=== PATIENT | female | born 1990 | race Caucasian/White ===

== ENCOUNTER 2022-02-07 09:43 | Emergency (ER) | payer BC, SELFPAY ==
[2022-02-07 09:43] VITALS: BP 113/77; PULSE 80; RESP 16; TEMP 36.9; O2SAT 98; BMI 42.5
--- NOTE | 2022-02-07 09:58 | HMH.EDUTC ---
[facility] [place] Disposition Clinical Impression: Strep throat Disposition: Home, Self-Care Condition on Discharge: Good Instructions: Strep Throat, DI for Strep Throat Additional Instructions: Drink plenty of fluids. Take tylenol or ibuprofen for pain or fever. Take the medications as directed. Follow up with your regular doctor. GO TO THE ER FOR ANY WORSENING SYMPTOMS Throw your tooth brush away and get a new one. Prescriptions: Brompheniramine/Pseudoephed/Dm [Bromfed Dm Cough Syrup] 5 ml PO Q6HP PRN #240 ml PRN Reason: Cough Transmission Status: Received by [id number] Amoxicillin [Amoxicillin 875MG Tab] 875 mg PO Q12H #20 tab Transmission Status: Received by [facility] methylPREDNISolone [Medrol] 4 mg PO DIRECTED 6 Days #21 packet Transmission Status: Received by [facility] Referrals: Yogi Abdul [Primary Care Provider] - Time of Disposition: 10:22 Medical Decision Making - Medical Records Medical records reviewed: No: I reviewed the patient's medical records. - Jefe Inquiry Pt receiving controlled substance: No Vital Signs: 02/07/22 09:43 02/07/22 10:26 Temperature 98.4 F 98.4 F Temperature Source Oral Oral Pulse Rate 80 Pulse Rate [Right] 80 Respiratory Rate 16 16 Blood Pressure 113/77 Blood Pressure [Right Arm] 113/77 Blood Pressure Mean [Right Arm] 89 Blood Pressure Source Automatic Cuff Blood Pressure Source [Right Arm] Automatic Cuff Blood Pressure Position Sitting Blood Pressure Position [Right Arm] Sitting 02 Sat by Pulse Oximetry 98 Oxygen Delivery Method Room Air Room Air - Lab Data Lab results reviewed: Yes: I reviewed the patient's lab results. Lab Results 02/07/22 09:59: Strep Scn Rapid Clinic Positive A [facility] [place] HPI - General Stated complaint: sore throat Time Seen by Provider: 02/07/22 09:58 - History of Present Illness Provider Complaint: She c/o sore throat for the past 2 days. - Related Data Previous Rx's Medication Instructions Recorded Amoxicillin [Amoxicillin 875MG 875 mg PO Q12H #20 tab 02/07/22 Tab] Brompheniramine/Pseudoephed/Dm 5 ml PO Q6HP PRN #240 ml 02/07/22 [Bromfed Dm Cough Syrup] methylPREDNISolone [Medrol] 4 mg PO DIRECTED 6 Days #21 02/07/22 packet Allergies Allergy/AdvReac Type Severity Reaction Status Date / Time ciprofloxacin [From Cipro] Allergy Verified 02/07/22 10:07 Sulfa (Sulfonamide Allergy Verified 02/07/22 10:07 Antibiotics) [facility] History - Hepatitis A Screen Attestation statement:: This patient has been screened for Hepatitis A risk factors. I have reviewed the patient's past medical history: Yes ROS Obtained: Yes All systems reviewed & no additional complaints - Constitutional Constitutional: Reports as per HPI, Reports chills, Reports fever(s), Reports frequent falls, Reports poor appetite - Eyes Eyes: Denies eye discharge - ENT Ears, Nose, Mouth, and Throat: Reports as per HPI - Cardiovascular Cardiovascular: Denies chest pain - Respiratory Respiratory: Denies chest congestion, Reports cough Physical Exam - General General appearance: alert, in no apparent distress - Head Head exam: atraumatic, normocephalic, normal inspection - Eye Eye exam: Present: normal appearance, PERRL, EOMI - ENT ENT exam: Present: mucous membranes moist, normal external ear exam - Expanded ENT Exam TM/Canal exam: Bilateral TM: erythema, bulging Nose exam: Absent: sinus tenderness Nasal speculum exam: Bilateral: normal Throat exam: Present: tonsillar erythema, tonsillomegaly, tonsillar exudate - Neck Neck exam: Present: normal inspection, full ROM, trachea midline. Absent: meningismus, lymphadenopathy - Chest Chest inspection: Present: normal inspection, symmetric chest wall rise. Absent: tenderness - Respiratory Respiratory exam: Present: normal lung sounds bilaterally. Absent: respiratory distress - Cardiovascular
[2022-02-07 10:05] LABS: UTC Strep Screen (Rapid) Positive (Negative)
[2022-02-07 10:26] VITALS: BP 113/77; PULSE 80; RESP 16; TEMP 36.9; O2SAT 98
== END 2022-02-07 10:27 | disposition home or self-care (01) ==
PROVIDERS: Emergency Provider Nurse Practitioner Family; PCP Family Medicine
DX: J02.0 Streptococcal pharyngitis (principal)
CPT/HCPCS: 87880; 99212; G0463

== ENCOUNTER 2022-04-25 16:02 | Emergency (ER) | payer BC, SELFPAY ==
[2022-04-25 16:25] VITALS: BP 125/76; PULSE 86; RESP 18; TEMP 36.7; O2SAT 98; BMI 46.5
--- NOTE | 2022-04-25 16:39 | EXP.UTC ---
Discharge Plan Disposition Patient Disposition: Home, Self-Care Condition: Good Prescriptions Prescriptions: New phenazopyridine [Pyridium] 200 mg tablet 200 mg PO Q8H 2 Days Qty: 6 0RF cefdinir 300 mg capsule 300 mg PO BID Qty: 20 0RF No Action amoxicillin 875 MG tablet 875 mg PO Q12H Qty: 20 0RF methylprednisolone 4 MG tablets,dose pack 4 mg PO DIRECTED 6 Days Qty: 21 0RF eeydtzystckehso-suofdncyp-RA 118 ML syrup 5 ml PO Q6HP PRN (Reason: Cough) Qty: 240 0RF Referrals Follow up/Referrals: Yogi Abdul [Primary Care Provider] - See instructions Activity Restrictions/Add. Instructions Additional Instructions/Restrictions: *Increase fluids. Water not Soda or Tea *Start antibiotic immediately and be sure to take as ordered for the FULL length of time although you should start to see improvement over the next 48 hours *Pyridium as needed Remember this medication will turn your urine . This is normal but it will stain what ever it gets on *You should not use Pyridium for more than 48 hours. If so , follow up with your primary physician to review urine culture and ensure that antibiotic is adequate for infection *Be SURE to follow up anytime for new or worsening symptoms with your family doctor. AND in 48 hours for urine culture results with your family doctor, if you do not have a doctor then you may call back to the [facility] for urine culture results and further treatment. We do recommend that you choose and establish care with a Primary Care Physician. ?AND follow up with them ?in 10-14 days to repeat UA to ensure infection is resolved and blood no longer present *Be sure to let your PCP know that we sent urine cultures from the [facility] so they can follow up to ensure that you area the on the correct antibiotic Call your doctor office and make appointment for 48 hours (2 days from today) ?to follow up and get the results of your urine culture and further treatment Clinical Impressions Clinical Impression: Urinary tract infection Instructions Patient Instructions: Urinary Tract Infection, Cefdinir Discharge ED Provider: Tamiko Lovelace [facility] [place] HPI General Stated complaint: possible UTI Mode of Arrival: Ambulatory Source of Information: Patient Limitations: No Limitations Time Seen by Provider: 04/25/22 16:52 Description of Symptoms (Recalled from Triage Doc. by RN): PATIENT C/O BLOOD IN URINE, FREQUENT URINATION, NAUSEA, LOWER ABDOMINAL PAIN, AND PRESSURE IN BLADDER X 2 DAYS HEENT Symptoms (Recalled from RN notes): No Resp Symptoms (Recalled from RN notes): No Skin Symptoms (Recalled from RN notes): No MS Symptoms (Recalled from RN notes): No Functional Status (Recalled from RN notes): WNL History of Present Illness Provider Complaint: Patient states that she feels like she has a UTI States that she is having symptoms like she has had in the past with UTI States that she is having pain and burning with urination, reports pressure like pain in lower abdomen and bladder area along with frequency and urgency States that she has also been having achy like pain in her lower back for the last couple of days and her urine looked dark like it may have had blood in Denies fever denies chills States that she did have a little nausea earlier but not right now Related Data Previous Rx's Medication Instructions Recorded amoxicillin 875 mg tablet 875 mg PO Q12H #20 tabs 02/07/22 vdahlxroxexvdhd-kfnrzluthjnbcku-PC 5 ml PO Q6HP PRN Cough #240 mL 02/07/22 2 mg-30 mg-10 mg/5 mL oral syrup methylprednisolone 4 mg tablets in 4 mg PO DIRECTED 6 days #21 02/07/22 a dose pack packets cefdinir 300 mg capsule 300 mg PO BID #20 caps 04/25/22 phenazopyridine 200 mg tablet 200 mg PO Q8H pain 2 days #6 tabs 04/25/22 (Pyridium) Allergies Allergy/AdvReac Type Severity Reaction Status Date / Time ciprofloxacin [From Cipro] Allergy Verified 02/07/22 10:07 Sulfa (Sulfonamide Allergy Verified 02/07/22 10:07 Antibiotics)
[2022-04-25 16:52] LABS: Apearance,Urine Cloudy (Clear); Bilirubin,Urine Negative (Negative); Blood, Urine 2+ (Negative); Color,Urine Dark Yellow (Yellow); Glucose,Urine (UA) Negative (Negative); Ketones,Urine Negative (Negative); PH,Urine 5.5 (5.0-8.5); Protein,Urine Trace (Negative); UTC Leukocyte Esterase,Urine Trace (Negative); UTC Nitrate,Urine Positive (Negative); Urobilinogen,Urine 0.2 EU/dl (0.2)
[2022-04-25 17:04] VITALS: BP 125/76; PULSE 86; RESP 18; TEMP 36.7; O2SAT 98
== END 2022-04-25 17:07 | disposition home or self-care (01) ==
PROVIDERS: Emergency Provider Nurse Practitioner; PCP Family Medicine
DX: N39.0 Urinary tract infection, site not specified (principal)
CPT/HCPCS: 81003; 87086; 87088; 87186; 99212; G0463

== ENCOUNTER 2022-06-23 17:59 | Emergency (ER) | payer BC, SELFPAY ==
[2022-06-23 19:30] VITALS: BP 130/72; PULSE 78; RESP 22; TEMP 36.7; O2SAT 98; BMI 43.7
[2022-06-23 19:47] LABS: UTC Strep Screen (Rapid) Negative (Negative)
--- NOTE | 2022-06-23 19:51 | EXP.UTC ---
Discharge Plan Disposition Patient Disposition: Home, Self-Care Condition: Good Prescriptions Prescriptions: New amoxicillin 875 mg tablet 875 mg PO BID Qty: 20 0RF pseudoephedrine HCl [Sudafed 12 Hour] 120 mg tablet extended release 120 mg PO Q12H PRN (Reason: nasal congestion) Qty: 10 0RF Referrals Follow up/Referrals: Yogi Abdul [Primary Care Provider] - See instructions Activity Restrictions/Add. Instructions Additional Instructions/Restrictions: *Monitor Temp, Over the counter Motrin or Tylenol as directed/as needed Tylenol every 4 hours and Motrin every 6 hours (as long as your family doctor has told you that you can take it) for fever or pain. and straight to ER if unable to lower temp less than 101.0 after medication given *Warm salt water gargles may help to soothe the throat *Throat Lozenges? *Warm fluids like tea with honey may help to soothe the throat? *Sleep elevated *Humidifier/Vaporizer Take medication as prescribed Your throat swab was sent for culture. Those results are typically sent to your primary care. Be sure to follow up in 2-3 days with your family doctor/primary care physician if no improvement so they can review those result and treat if necessary. If you don?t have a primary care doctor, I recommend you get one but in the mean time, you will have to return to a walk in clinic Follow up IMMEDIATELY for new or worsening symptoms or no Noticeable improvement over the next 48-72 hours. 911 for difficulty breathing or swallowing Clinical Impressions Clinical Impression: Otitis media Instructions Patient Instructions: Middle Ear Infection, Pseudoephedrine, Amoxicillin Discharge ED Provider: Tamiko Lovelace [facility] [place] HPI General Stated complaint: sore throat, ears Mode of Arrival: Ambulatory Source of Information: Patient Limitations: No Limitations Time Seen by Provider: 06/23/22 19:51 Description of Symptoms (Recalled from Triage Doc. by RN): PATIENT C/O SORE THROAT AND EAR PAIN X 2 DAYS HEENT Symptoms (Recalled from RN notes): Yes Resp Symptoms (Recalled from RN notes): No Skin Symptoms (Recalled from RN notes): No MS Symptoms (Recalled from RN notes): No Functional Status (Recalled from RN notes): WNL History of Present Illness Provider Complaint: Patient state that she has been having sore throat and pain in both ears for 2 days that has got worse States that he sinuses feels stopped up and pressure in her ears States that today she wasnt feeling any better so she came in Related Data Previous Rx's Medication Instructions Recorded amoxicillin 875 mg tablet 875 mg PO BID #20 tabs 06/23/22 pseudoephedrine HCl 120 mg 120 mg PO Q12H PRN nasal 06/23/22 tablet,extended release (Sudafed congestion #10 tabs 12 Hour) Allergies Allergy/AdvReac Type Severity Reaction Status Date / Time ciprofloxacin [From Cipro] Allergy Verified 02/07/22 10:07 Sulfa (Sulfonamide Allergy Verified 02/07/22 10:07 Antibiotics) Worker's Comp Is this a Worker's Comp case?: No [facility] Disclaimer: The information contained in this section may have been updated after the patient was seen, as this information can be updated by other users. Medical History (Updated 06/23/22 @ 20:02 by Tamiko Lovelace APRN) Anxiety Depression Diabetes mellitus, type 2 Thyroid disease Urinary tract infection Social History (Updated 06/23/22 @ 19:39 by Kristie Ace RN) Smoking Status: Current every day smoker alcohol intake: never current occupational status: employed Travel in the last 8 weeks: None ROS Obtained: Yes All systems reviewed & no additional complaints except as documented and Yes Systems reviewed as appropriate & no additional complaints except as documented Constitutional Constitutional: Reports system reviewed and no additional complaints, except as documented, Reports as per HPI and Reports headache(s) ENT Ears, Nose, Mouth, and Throat: Rep
[2022-06-23 20:04] VITALS: BP 130/72; PULSE 78; RESP 22; TEMP 36.7; O2SAT 98
== END 2022-06-23 20:11 | disposition home or self-care (01) ==
PROVIDERS: Emergency Provider Nurse Practitioner; PCP Family Medicine
DX: H66.90 Otitis media, unspecified, unspecified ear (principal)
CPT/HCPCS: 87880; 99212; G0463

== ENCOUNTER 2022-08-26 08:24 | Emergency (ER) | payer BC, SELFPAY ==
[2022-08-26 08:30] VITALS: BP 122/83; RESP 20; TEMP 36.7; O2SAT 96; BMI 43.2
--- NOTE | 2022-08-26 08:35 | EXP.UTC ---
Discharge Plan Disposition Patient Disposition: Home, Self-Care Condition: Good Prescriptions Prescriptions: New azithromycin [Zithromax] 250 mg tablet 250 mg PO UD DOSE PK Qty: 6 0RF Rx Instructions: Take two (2) tablets today, then one (1) tablet days #2 thru #5 methylprednisolone 4 mg Tablets,Dose Pack 4 mg PO DIRECTED Qty: 21 0RF drvcdoghwyratwr-czrdczxrp-WS [Bromfed DM] 2-30-10 mg/5 mL Syrup 5 ml PO Q6H PRN (Reason: Cough) Qty: 240 0RF No Action bupropion HCl 150 mg tablet sustained-release 12 hr 150 mg PO DAILY Label Comments: TAKE 1 TABLET BY MOUTH TWICE DAILY trazodone 50 mg tablet 50 mg PO DAILY Label Comments: TAKE 1/2 TO 1 (ONE-HALF TO ONE) TABLET BY MOUTH AT BEDTIME NEEDED FOR SLEEP oxybutynin chloride 10 mg tablet extended release 24hr 10 mg PO DAILY gabapentin 100 mg capsule 100 mg PO DAILY Label Comments: TAKE 1 CAPSULE BY MOUTH THREE TIMES DAILY insulin lispro [Humalog U-100 Insulin] 100 unit/mL solution See Rx Instructions .ROUTE .COMPLEX Label Comments: INJECT UP TO 105 UNITS DAILY VIA INSULIN PUMP Rx Instructions: Inject up to 105 units daily via insulin pump buspirone 15 mg tablet 15 mg PO DAILY Label Comments: TAKE 1 TABLET BY MOUTH TWICE DAILY escitalopram oxalate 20 mg tablet 20 mg PO DAILY Label Comments: TAKE 1 TABLET BY MOUTH ONCE DAILY Vraylar 1.5 mg capsule 1.5 mg PO DAILY Label Comments: TAKE 1 CAPSULE BY MOUTH ONCE DAILY Ozempic 1 mg/dose (4 mg/3 mL) pen injector 1 mg SQ WEEKLY Label Comments: INJECT 1 MG UNDER THE SKIN INTO THE APPROPRIATE AREA ONCE A WEEK DIRECTED Referrals Follow up/Referrals: Yogi Abdul [Primary Care Provider] - See instructions Activity Restrictions/Add. Instructions Additional Instructions/Restrictions: Drink plenty of fluids. Take tylenol or ibuprofen for pain or fever. Take the medications as directed. Follow up with your regular doctor. GO TO THE ER FOR ANY WORSENING SYMPTOMS Clinical Impressions Clinical Impression: Bronchitis, Pharyngitis, Acute viral syndrome Stand Alone Forms Stand Alone Forms: Work/School Release Instructions Patient Instructions: Acute Bronchitis, DI for Acute Bronchitis Discharge ED Provider: Kwesi Hussein [facility] HPI General Stated complaint: Sore throat cough headache Time Seen by Provider: 08/26/22 08:34 History of Present Illness Provider Complaint: She states that for the past 2 days she has had sore throat, chills, low grade fever, and a cough. Related Data Home Medications Medication Instructions Recorded Confirmed bupropion HCl 150 mg tablet,12 hr 150 mg PO DAILY . 08/26/22 08/26/22 sustained-release buspirone 15 mg tablet 15 mg PO DAILY . 08/26/22 08/26/22 cariprazine 1.5 mg capsule 1.5 mg PO DAILY . 08/26/22 08/26/22 (Vraylar) escitalopram oxalate 20 mg tablet 20 mg PO DAILY . 08/26/22 08/26/22 gabapentin 100 mg capsule 100 mg PO DAILY . 08/26/22 08/26/22 insulin lispro 100 unit/mL See Rx Instructions .Route 08/26/22 08/26/22 subcutaneous solution (Humalog .COMPLEX . U-100 Insulin) oxybutynin chloride 10 mg 10 mg PO DAILY . 08/26/22 08/26/22 tablet,extended release 24 hr semaglutide 1 mg/dose (4 mg/3 mL) 1 mg SQ WEEKLY . 08/26/22 08/26/22 subcutaneous pen injector (Ozempic) trazodone 50 mg tablet 50 mg PO DAILY sleep 08/26/22 08/26/22 Previous Rx's Medication Instructions Recorded azithromycin 250 mg tablet 250 mg PO UD DOSE PK #6 tabs 08/26/22 (Zithromax) ezcplxfcnywehzp-nxezmssrbwmpuqo-SG 5 ml PO Q6H PRN Cough #240 mL 08/26/22 2 mg-30 mg-10 mg/5 mL oral syrup (Bromfed DM) methylprednisolone 4 mg tablets in 4 mg PO DIRECTED #21 tabs 08/26/22 a dose pack Allergies Allergy/AdvReac Type Severity Reaction Status Date / Time ciprofloxacin [From Cipro] Allergy Verified 08/26/22 08:44 Sulfa (Sulfonamide
[2022-08-26 08:45] LABS: UTC Strep Screen (Rapid) Negative (Negative)
[2022-08-26 09:30] VITALS: BP 122/83; PULSE 94; RESP 20; TEMP 36.7; O2SAT 96
== END 2022-08-26 09:30 | disposition home or self-care (01) ==
PROVIDERS: Emergency Provider Nurse Practitioner Family; PCP Family Medicine
DX: J40 Bronchitis, not specified as acute or chronic (principal); J02.9 Acute pharyngitis, unspecified; B34.9 Viral infection, unspecified
CPT/HCPCS: 87880; 99212; 99213; C9803; G0463; U0003; U0005

== ENCOUNTER 2023-01-24 15:40 | Emergency (ER) | payer BC, SELFPAY ==
[2023-01-24 16:05] VITALS: BP 128/77; PULSE 88; RESP 20; TEMP 36.9; O2SAT 98; BMI 43.8
[2023-01-24 16:18] LABS: Apearance,Urine Clear (Clear); Bilirubin,Urine Negative (Negative); Blood, Urine Negative (Negative); Color,Urine Yellow (Yellow); Glucose,Urine (UA) Negative (Negative); Ketones,Urine Negative (Negative); Protein,Urine Negative (Negative); UTC Leukocyte Esterase,Urine Negative (Negative); UTC Nitrate,Urine Negative (Negative); Urobilinogen,Urine 0.2 EU/dl (0.2)
--- NOTE | 2023-01-24 16:23 | EXP.UTC ---
Discharge Plan Disposition Patient Disposition: Home, Self-Care Condition: Good Prescriptions Prescriptions: New methocarbamol 500 mg tablet 500 mg PO TID PRN (Reason: muscle spasm) Qty: 15 0RF No Action bupropion HCl 150 mg tablet sustained-release 12 hr 150 mg PO DAILY Patient Comments: TAKE 1 TABLET BY MOUTH TWICE DAILY trazodone 50 mg tablet 50 mg PO DAILY Patient Comments: TAKE 1/2 TO 1 (ONE-HALF TO ONE) TABLET BY MOUTH AT BEDTIME NEEDED FOR SLEEP oxybutynin chloride 10 mg tablet extended release 24hr 10 mg PO DAILY gabapentin 100 mg capsule 100 mg PO DAILY Patient Comments: TAKE 1 CAPSULE BY MOUTH THREE TIMES DAILY insulin lispro [Humalog U-100 Insulin] 100 unit/mL solution See Rx Instructions .ROUTE .COMPLEX Patient Comments: INJECT UP TO 105 UNITS DAILY VIA INSULIN PUMP Rx Instructions: Inject up to 105 units daily via insulin pump buspirone 15 mg tablet 15 mg PO DAILY Patient Comments: TAKE 1 TABLET BY MOUTH TWICE DAILY escitalopram oxalate 20 mg tablet 20 mg PO DAILY Patient Comments: TAKE 1 TABLET BY MOUTH ONCE DAILY Vraylar 1.5 mg capsule 1.5 mg PO DAILY Patient Comments: TAKE 1 CAPSULE BY MOUTH ONCE DAILY Ozempic 1 mg/dose (4 mg/3 mL) pen injector 1 mg SQ WEEKLY Patient Comments: INJECT 1 MG UNDER THE SKIN INTO THE APPROPRIATE AREA ONCE A WEEK DIRECTED azithromycin [Zithromax] 250 mg tablet 250 mg PO UD DOSE PK Qty: 6 0RF Rx Instructions: Take two (2) tablets today, then one (1) tablet days #2 thru #5 methylprednisolone 4 mg Tablets,Dose Pack 4 mg PO DIRECTED Qty: 21 0RF txdagznmaqeregn-oopanbzoj-TP [Bromfed DM] 2-30-10 mg/5 mL Syrup 5 ml PO Q6H PRN (Reason: Cough) Qty: 240 0RF Referrals Follow up/Referrals: Yogi Abdul [Primary Care Provider] - See instructions Activity Restrictions/Add. Instructions Additional Instructions/Restrictions: Take medication as prescribed Make sure to follow up with Your Family Doctor if no improvement or any worsening of symptoms Straight to ER if pain in lower abdomen worsens Return if needed Clinical Impressions Clinical Impression: Low back pain Qualifiers: Chronicity: unspecified Back pain laterality: midline Sciatica presence: without sciatica Qualified Code(s): M54.50 - Low back pain, unspecified Instructions Patient Instructions: Low Back Pain, DI for Low Back Pain Discharge ED Provider: Tamiko Lovelace [facility] General Stated complaint: possible uti Mode of Arrival: Ambulatory Source of Information: Patient Limitations: No Limitations Time Seen by Provider: 01/24/23 16:23 Description of Symptoms (Recalled from Triage Doc. by RN): PATIENT C/O URINARY FREQUENCY, LOWER BACK PAIN THAT RADIATES AROUND TO PELVIC AREA X 1-2 WEEKS HEENT Symptoms (Recalled from RN notes): No Resp Symptoms (Recalled from RN notes): No Skin Symptoms (Recalled from RN notes): No MS Symptoms (Recalled from RN notes): No Functional Status (Recalled from RN notes): WNL History of Present Illness Provider Complaint: Patient states that she has been having pain on and off in her lower back that is worse at times with movement that radiates around her side and at time in to pelvic area States that it has been going on now for about 2 weeks so today she was worried that she may have a UTI so she came in to get it checked Related Data Home Medications Medication Instructions Recorded Confirmed bupropion HCl 150 mg tablet,12 hr 150 mg PO DAILY . 08/26/22 08/26/22 sustained-release buspirone 15 mg tablet 15 mg PO DAILY . 08/26/22 08/26/22 cariprazine 1.5 mg capsule 1.5 mg PO DAILY . 08/26/22 08/26/22 (Vraylar) escitalopram oxalate 20 mg tablet 20 mg PO DAILY . 08/26/22 08/26/22 gabapentin 100 mg capsule 100 mg PO DAILY . 08/26/22 08/26/22 insulin lispro 100 unit/mL See Rx Instructions .Route 08/26/22 08/26/22 subcutaneous so
[2023-01-24 16:33] LABS: UTC Pregnancy Test, Urine Negative (Negative)
[2023-01-24 16:36] VITALS: BP 128/77; PULSE 88; RESP 20; TEMP 36.9; O2SAT 98
== END 2023-01-24 16:45 | disposition home or self-care (01) ==
PROVIDERS: Emergency Provider Nurse Practitioner; PCP Family Medicine
DX: M54.50 Low back pain, unspecified (principal); F17.210 Nicotine dependence, cigarettes, uncomplicated; E11.9 Type 2 diabetes mellitus without complications; E03.9 Hypothyroidism, unspecified; F41.9 Anxiety disorder, unspecified; F32.A Depression, unspecified; Z79.4 Long term (current) use of insulin
CPT/HCPCS: 81003; 81025; 99212; 99214; G0463

== ENCOUNTER 2023-07-10 09:51 | Emergency (ER) | payer BC, SELFPAY ==
[2023-07-10 10:25] VITALS: BP 126/74; PULSE 63; RESP 18; TEMP 36.5; O2SAT 98; BMI 40.7
--- NOTE | 2023-07-10 10:38 | EXP.UTC ---
Discharge Plan Disposition Patient Disposition: Home, Self-Care Condition: Good Prescriptions Prescriptions: New permethrin 5 % cream 1 applic topical Q14D Qty: 60 0RF Rx Instructions: apply second treatment 14 days after first treatment if live lice remain triamcinolone acetonide 0.1 % cream 1 applic topical BID PRN (Reason: itching) Qty: 30 0RF No Action methocarbamol 500 mg tablet 500 mg PO TID PRN (Reason: muscle spasm) Qty: 15 0RF bupropion HCl 150 mg tablet sustained-release 12 hr 150 mg PO DAILY Patient Comments: TAKE 1 TABLET BY MOUTH TWICE DAILY trazodone 50 mg tablet 50 mg PO DAILY Patient Comments: TAKE 1/2 TO 1 (ONE-HALF TO ONE) TABLET BY MOUTH AT BEDTIME NEEDED FOR SLEEP oxybutynin chloride 10 mg tablet extended release 24hr 10 mg PO DAILY gabapentin 100 mg capsule 100 mg PO DAILY Patient Comments: TAKE 1 CAPSULE BY MOUTH THREE TIMES DAILY insulin lispro [Humalog U-100 Insulin] 100 unit/mL solution See Rx Instructions .ROUTE .COMPLEX Patient Comments: INJECT UP TO 105 UNITS DAILY VIA INSULIN PUMP Rx Instructions: Inject up to 105 units daily via insulin pump buspirone 15 mg tablet 15 mg PO DAILY Patient Comments: TAKE 1 TABLET BY MOUTH TWICE DAILY escitalopram oxalate 20 mg tablet 20 mg PO DAILY Patient Comments: TAKE 1 TABLET BY MOUTH ONCE DAILY Vraylar 1.5 mg capsule 1.5 mg PO DAILY Patient Comments: TAKE 1 CAPSULE BY MOUTH ONCE DAILY Ozempic 1 mg/dose (4 mg/3 mL) pen injector 1 mg SQ WEEKLY Patient Comments: INJECT 1 MG UNDER THE SKIN INTO THE APPROPRIATE AREA ONCE A WEEK DIRECTED azithromycin [Zithromax] 250 mg tablet 250 mg PO UD DOSE PK Qty: 6 0RF Rx Instructions: Take two (2) tablets today, then one (1) tablet days #2 thru #5 methylprednisolone 4 mg Tablets,Dose Pack 4 mg PO DIRECTED Qty: 21 0RF rqxgjrimlbhbvgo-opocxtlht-XY [Bromfed DM] 2-30-10 mg/5 mL Syrup 5 ml PO Q6H PRN (Reason: Cough) Qty: 240 0RF Referrals Follow up/Referrals: Yogi Abdul [Primary Care Provider] - See instructions Activity Restrictions/Add. Instructions Additional Instructions/Restrictions: Use the medication as directed. Don't put the topical steroids (triamcinolone) on your face or your groin. I prescribed it so you could use it on the itchy spot on your breast. Follow up with your regular doctor. 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 There has been an outbreak of scabies in her classroom. Over the past 3 days she has developed itching of her arms, legs, and an itchy rash on her left breast. Related Data Home Medications Medication Instructions Recorded Confirmed bupropion HCl 150 mg tablet,12 hr 150 mg PO DAILY . 08/26/22 08/26/22 sustained-release buspirone 15 mg tablet 15 mg PO DAILY . 08/26/22 08/26/22 cariprazine 1.5 mg capsule 1.5 mg PO DAILY . 08/26/22 08/26/22 (Vraylar) escitalopram oxalate 20 mg tablet 20 mg PO DAILY . 08/26/22 08/26/22 gabapentin 100 mg capsule 100 mg PO DAILY . 08/26/22 08/26/22 insulin lispro 100 unit/mL See Rx Instructions .Route 08/26/22 08/26/22 subcutaneous solution (Humalog .COMPLEX . U-100 Insulin) oxybutynin chloride 10 mg 10 mg PO DAILY . 08/26/22 08/26/22 tablet,extended release 24 hr semaglutide 1 mg/dose (4 mg/3 mL) 1 mg SQ WEEKLY . 08/26/22 08/26/22 subcutaneous pen injector (Ozempic) trazodone 50 mg tablet 50 mg PO DAILY sleep
[2023-07-10 10:47] VITALS: BP 126/74; PULSE 63; RESP 18; TEMP 36.5; O2SAT 98
== END 2023-07-10 11:10 | disposition home or self-care (01) ==
PROVIDERS: Emergency Provider Nurse Practitioner Family; PCP Family Medicine
DX: L29.9 Pruritus, unspecified (principal); B86 Scabies; F17.210 Nicotine dependence, cigarettes, uncomplicated; E11.9 Type 2 diabetes mellitus without complications; Z79.4 Long term (current) use of insulin; Z79.85 Long-term (current) use of injectable non-insulin antidiabetic drugs
CPT/HCPCS: 99212; 99214; G0463

== ENCOUNTER 2023-09-04 12:00 | Emergency (ER) | payer BC, SELFPAY ==
[2023-09-04 12:02] VITALS: BP 130/70; PULSE 112; RESP 18; TEMP 37.2; O2SAT 96; BMI 40.5
--- NOTE | 2023-09-04 13:24 | EXP.UTC ---
Discharge Plan Disposition Patient Disposition: Home, Self-Care Condition: Good Prescriptions Prescriptions: New azithromycin [Zithromax] 250 mg tablet 250 mg PO UD DOSE PK Qty: 6 0RF Rx Instructions: Take two (2) tablets today, then one (1) tablet days #2 thru #5 methylprednisolone 4 mg Tablets,Dose Pack 4 mg PO DIRECTED 6 Days Qty: 21 0RF Rx Instructions: Take 1 pack as directed for 6 days mrolxlejzajmcyw-fygacjcnx-RX [Bromfed DM] 2-30-10 mg/5 mL Syrup 5 ml PO Q6H PRN (Reason: Cough) Qty: 240 0RF No Action methocarbamol 500 mg tablet 500 mg PO TID PRN (Reason: muscle spasm) Qty: 15 0RF bupropion HCl 150 mg tablet sustained-release 12 hr 150 mg PO DAILY Patient Comments: TAKE 1 TABLET BY MOUTH TWICE DAILY trazodone 50 mg tablet 50 mg PO DAILY Patient Comments: TAKE 1/2 TO 1 (ONE-HALF TO ONE) TABLET BY MOUTH AT BEDTIME NEEDED FOR SLEEP oxybutynin chloride 10 mg tablet extended release 24hr 10 mg PO DAILY gabapentin 100 mg capsule 100 mg PO DAILY Patient Comments: TAKE 1 CAPSULE BY MOUTH THREE TIMES DAILY insulin lispro [Humalog U-100 Insulin] 100 unit/mL solution See Rx Instructions .ROUTE .COMPLEX Patient Comments: INJECT UP TO 105 UNITS DAILY VIA INSULIN PUMP Rx Instructions: Inject up to 105 units daily via insulin pump buspirone 15 mg tablet 15 mg PO DAILY Patient Comments: TAKE 1 TABLET BY MOUTH TWICE DAILY escitalopram oxalate 20 mg tablet 20 mg PO DAILY Patient Comments: TAKE 1 TABLET BY MOUTH ONCE DAILY Vraylar 1.5 mg capsule 1.5 mg PO DAILY Patient Comments: TAKE 1 CAPSULE BY MOUTH ONCE DAILY Ozempic 1 mg/dose (4 mg/3 mL) pen injector 1 mg SQ WEEKLY Patient Comments: INJECT 1 MG UNDER THE SKIN INTO THE APPROPRIATE AREA ONCE A WEEK DIRECTED triamcinolone acetonide 0.1 % cream 1 applic topical BID PRN (Reason: itching) Qty: 30 0RF Referrals Follow up/Referrals: Yogi Abdul [Primary Care Provider] - See instructions Activity Restrictions/Add. Instructions Additional Instructions/Restrictions: Drink plenty of fluids. Take tylenol or ibuprofen for pain or fever. Take the medications as directed. Follow up with your regular doctor. GO TO THE ER FOR ANY WORSENING SYMPTOMS Clinical Impressions Clinical Impression: COVID-19 Stand Alone Forms Stand Alone Forms: Work/School Release Instructions Patient Instructions: DI for Viral Syndrome [place] Kwesi [place] [facility] [place] General Stated complaint: congestion cough [facility] Time Seen by Provider: 09/04/23 13:24 History of Present Illness Provider Complaint: She states that for the past 2 days she has had fever, chills, body aches, malaise, fever, and a dry cough. Related Data Home Medications Medication Instructions Recorded Confirmed bupropion HCl 150 mg tablet,12 hr 150 mg PO DAILY . 08/26/22 08/26/22 sustained-release buspirone 15 mg tablet 15 mg PO DAILY . 08/26/22 08/26/22 cariprazine 1.5 mg capsule 1.5 mg PO DAILY . 08/26/22 08/26/22 (Vraylar) escitalopram oxalate 20 mg tablet 20 mg PO DAILY . 08/26/22 08/26/22 gabapentin 100 mg capsule 100 mg PO DAILY . 08/26/22 08/26/22 insulin lispro 100 unit/mL See Rx Instructions .Route 08/26/22 08/26/22 subcutaneous solution (Humalog .COMPLEX . U-100 Insulin) oxybutynin chloride 10 mg 10 mg PO DAILY . 08/26/22 08/26/22 tablet,extended release 24 hr semaglutide 1 mg/dose (4 mg/3 mL) 1 mg SQ WEEKLY . 08/26/22 08/26/22 subcutaneous pen injector (Ozempic) trazodone 50 mg tablet 50 mg PO DAILY sleep 08/26/22 08/26/22 Previous Rx's Medication Instructions Recorded methocarbamol 500 mg tablet 500 mg PO TID PRN muscle spasm #15 01/24/23 tabs triamcinolone acetonide 0.1 % 1 applic topical BID PRN itching 07/10/23 topical cream #30 grams azithromycin 250 mg tablet 250 mg PO UD DOSE PK #6 tabs 09/04/23 (Zithromax) zedoafyqdjarmqb-sdypprorpyxctty-LR 5 ml PO Q6H PRN Cough #240 mL 09/04/23 2 mg-30 mg-10 mg/5 mL oral syrup (Bromfed DM) methylprednisolone 4 mg tablets in 4 mg PO DIRECTED 6 days #21 tabs 09/04/23 a dose pack Allergies Allergy/AdvReac Type Severity Reaction Status Date / Time ciprofloxacin [From Cipro] Allergy Verified 09/04/23 13:31 Sulfa (Sulfonamide Allergy Verified 09/04/23 13:31 Antibiotics) [facility] Disclaimer: The information contained in this section may have been updated after the patient was seen, as this information can be updated by other users. Medical History Anxiety Depression Diabetes mellitus, type 2 Thyroid disease Urinary tract infection Social History Smoking Status: Current every day smoker alcohol intake: never current occupational status: employed Travel in the last 8 weeks: None ROS Obtained: Yes All systems reviewed & no additional complaints except as documented Constitutional Constitutional: Reports chills and Reports fever(s) Eyes Eyes: Denies eye discharge ENT Ears, Nose, Mouth, and Throat: Reports as per HPI Cardiovascular Cardiovascular: Denies chest pain Respiratory Respiratory: Denies chest congestion and Reports cough Gastrointestinal Gastrointestingal: Reports nausea; Denies abdominal pain, constipation, cramping, diarrhea or vomiting Musculoskeletal Musculoskeletal: Denies arthralgias Integumentary/Breasts Skin/Breast: Denies rash Neurologic Neurologic: Denies paresthesias Physical Exam General General appearance: alert and in no apparent distress Eye Eye exam: Present normal appearance, PERRL and EOMI ENT ENT exam: Present mucous membranes moist and normal external ear exam Expanded ENT Exam External ear exam: Present normal external inspection TM/Canal exam: Bilateral TM: erythema and bulging Nose exam: Absent sinus tenderness Nasal speculum exam: Bilateral: normal Mouth exam: Present normal external inspection; Absent drooling Teeth exam: Present normal inspection Throat exam: Present tonsillar erythema and tonsillomegaly Neck Neck exam: Present normal inspection, full ROM and trachea midline; Absent tenderness, lymphadenopathy or thyromegaly Chest Chest inspection: Present normal inspection and symmetric chest wall rise; Absent tenderness or rash Respiratory Respiratory exam: Present normal lung sounds bilaterally; Absent respiratory distress, wheezes, stridor or accessory muscle use Cardiovascular Cardiovascular exam: Present regular rate, normal rhythm and normal heart sounds Abdominal Exam Abdominal exam: Present soft; Absent distention, tenderness, guarding, rebound or rigidity Extremities Exam Extremities exam: Present normal inspection, full ROM and normal capillary refill; Absent tenderness or calf tenderness Back Exam Back exam: Present normal inspection and full ROM; Absent tenderness Neurological Exam Neurological exam: Present alert and oriented X3 Psychiatric Psychiatric exam: Present normal affect and normal mood Skin Skin exam: Present warm, dry, intact and normal color Lymphatic Lymphatic Findings: no adenopathy Medical Decision Making Medical Records Medical records reviewed: No I reviewed the patient's medical records. Jefe Inquiry Pt receiving controlled substance: No Lab Data Lab results reviewed: Yes I reviewed the patient's lab results.
[2023-09-04 13:50] LABS: UTC Strep Screen (Rapid) Negative (Negative)
[2023-09-04 13:51] LABS: UTC Influenza A Antigen Negative (Negative); UTC Influenza B Antigen Negative (Negative)
[2023-09-04 13:55] VITALS: BP 130/70; PULSE 112; RESP 18; TEMP 37.2; O2SAT 96
[2023-09-04 13:58] LABS: Influenza A, PCR Not Detected (NotDetected); Influenza B, PCR Not Detected (NotDetected)
[2023-09-04 15:51] LABS: Coronavirus 19, PCR Detected (NotDetected)
== END 2023-09-04 13:55 | disposition home or self-care (01) ==
PROVIDERS: Emergency Provider Nurse Practitioner Family; PCP Family Medicine
DX: U07.1 COVID-19 (principal); R50.9 Fever, unspecified; R05.9 Cough, unspecified; R53.81 Other malaise; F17.210 Nicotine dependence, cigarettes, uncomplicated; E11.9 Type 2 diabetes mellitus without complications; E03.9 Hypothyroidism, unspecified; Z79.4 Long term (current) use of insulin; Z79.85 Long-term (current) use of injectable non-insulin antidiabetic drugs
CPT/HCPCS: 87636; 87804; 87880; 99212; 99214; G0463

== ENCOUNTER 2023-11-30 16:24 | Emergency (ER) | payer BC, SELFPAY ==
[2023-11-30 16:35] VITALS: BP 109/74; PULSE 88; RESP 18; TEMP 36.8; O2SAT 98; BMI 38.0
--- NOTE | 2023-11-30 16:44 | EXP.UTC ---
Discharge Plan Disposition Patient Disposition: Home, Self-Care Condition: Good Prescriptions Prescriptions: New amoxicillin 500 mg capsule 500 mg PO BID 10 Days Qty: 20 0RF No Action methocarbamol 500 mg tablet 500 mg PO TID PRN (Reason: muscle spasm) Qty: 15 0RF bupropion HCl 150 mg tablet sustained-release 12 hr 150 mg PO DAILY Patient Comments: TAKE 1 TABLET BY MOUTH TWICE DAILY trazodone 50 mg tablet 50 mg PO DAILY Patient Comments: TAKE 1/2 TO 1 (ONE-HALF TO ONE) TABLET BY MOUTH AT BEDTIME NEEDED FOR SLEEP oxybutynin chloride 10 mg tablet extended release 24hr 10 mg PO DAILY gabapentin 100 mg capsule 100 mg PO DAILY Patient Comments: TAKE 1 CAPSULE BY MOUTH THREE TIMES DAILY insulin lispro [Humalog U-100 Insulin] 100 unit/mL solution See Rx Instructions .ROUTE .COMPLEX Patient Comments: INJECT UP TO 105 UNITS DAILY VIA INSULIN PUMP Rx Instructions: Inject up to 105 units daily via insulin pump buspirone 15 mg tablet 15 mg PO DAILY Patient Comments: TAKE 1 TABLET BY MOUTH TWICE DAILY escitalopram oxalate 20 mg tablet 20 mg PO DAILY Patient Comments: TAKE 1 TABLET BY MOUTH ONCE DAILY Vraylar 1.5 mg capsule 1.5 mg PO DAILY Patient Comments: TAKE 1 CAPSULE BY MOUTH ONCE DAILY Ozempic 1 mg/dose (4 mg/3 mL) pen injector 1 mg SQ WEEKLY Patient Comments: INJECT 1 MG UNDER THE SKIN INTO THE APPROPRIATE AREA ONCE A WEEK DIRECTED triamcinolone acetonide 0.1 % cream 1 applic topical BID PRN (Reason: itching) Qty: 30 0RF Referrals Follow up/Referrals: Yogi Abdul [Primary Care Provider] - See instructions Activity Restrictions/Add. Instructions Additional Instructions/Restrictions: *Monitor Temp, Over the counter Motrin or Tylenol as directed/as needed Tylenol every 4 hours and Motrin every 6 hours (as long as your family doctor has told you that you can take it) for fever or pain. and straight to ER if unable to lower temp less than 101.0 after medication given *Warm salt water gargles may help to soothe the throat *Throat Lozenges? *Warm fluids like tea with honey may help to soothe the throat? *Sleep elevated *Humidifier/Vaporizer *Your throat swab was sent for culture. Those results are typically sent to your primary care. Be sure to follow up in 2-3 days with your family doctor/primary care physician if no improvement so they can review those result and treat if necessary. If you don?t have a primary care doctor, I recommend you get one but in the mean time, you will have to return to a walk in clinic Follow up IMMEDIATELY for new or worsening symptoms or no Noticeable improvement over the next 48-72 hours. 911 for difficulty breathing or swallowing Clinical Impressions Clinical Impression: Pharyngitis Instructions Patient Instructions: Sore Throat Discharge ED [place]vel[place] [facility] [place] General Stated complaint: Sore throat Mode of Arrival: Ambulatory Source of Information: Patient Limitations: No Limitations Time Seen by Provider: 11/30/23 16:44 Description of Symptoms (Recalled from Triage Doc. by RN): Pt's symptoms are sore throat, M[place], and bilateral ear pain. 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 08/26/22 11/30/23 sustained-release buspirone 15 mg tablet 15 mg PO DAILY . 08/26/22 11/30/23 cariprazine 1.5 mg capsule 1.5 mg PO DAILY . 08/26/22 11/30/23 (Vraylar) escitalopram oxalate 20 mg tablet 20 mg PO DAILY . 08/26/22 11/30/23 gabapentin 100 mg capsule 100 mg PO DAILY . 08/26/22 11/30/23 insulin lispro 100 unit/mL See Rx Instructions .Route 08/26/22 11/30/23 subcutaneous solution (Humalog .COMPLEX . U-100 Insulin) oxybutynin chloride 10 mg 10 mg PO DAILY . 08/26/22 11/30/23 tablet,extended release 24 hr semaglutide 1 mg/dose (4 mg/3 mL) 1 mg SQ WEEKLY . 08/26/22 11/30/23 subcutaneous pen injector (Ozempic) trazodone 50 mg tablet 50 mg PO DAILY sleep 08/26/22 11/30/23 Previous Rx's Medication Instructions Recorded methocarbamol 500 mg tablet 500 mg PO TID PRN muscle spasm #15 01/24/23 tabs triamcinolone acetonide 0.1 % 1 applic topical BID PRN itching 07/10/23 topical cream #30 grams amoxicillin 500 mg capsule 500 mg PO BID 10 days #20 caps 11/30/23 Allergies Allergy/AdvReac Type Severity Reaction Status Date / Time ciprofloxacin [From Cipro] Allergy Verified 11/30/23 16:42 Sulfa (Sulfonamide Allergy Verified 11/30/23 16:42 Antibiotics) Worker's Comp Is this a Worker's Comp case?: No [facility] Dis[facility]: The information contained in this section may have been updated after the patient was seen, as this information can be updated by other users. Medical History Anxiety Depression Diabetes mellitus, type 2 Thyroid disease Urinary tract infection Social History Smoking Status: Current every day smoker alcohol intake: never current occupational status: employed Travel in the last 8 weeks: None ROS Obtained: Yes All systems reviewed & no additional complaints except as documented and Yes Systems reviewed as appropriate & no additional complaints except as documented Constitutional Constitutional: Reports system reviewed and no additional complaints, except as documented, Reports as per HPI and Reports headache(s) ENT Ears, Nose, Mouth, and Throat: Reports system reviewed and no additional complaints, except as documented, Reports as per HPI, Reports otalgia, Reports headache(s) and Reports sore throat Cardiovascular Cardiovascular: Reports system reviewed and no additional complaints, except as documented and Reports as per HPI Respiratory Respiratory: Reports system reviewed and no additional complaints, except as documented and Reports as per HPI Gastrointestinal Gastrointestingal: Reports system reviewed and no additional complaints, except as documented and as per HPI Neurologic Neurologic: Reports headache(s) Physical Exam General General appearance: alert and in no apparent distress ENT ENT exam: Present mucous membranes moist Expanded ENT Exam TM/Canal exam: Bilateral TM: bulging Nose exam: Absent sinus tenderness Throat exam: Present tonsillar erythema Respiratory Respiratory exam: Present normal lung sounds bilaterally; Absent respiratory distress or wheezes Cardiovascular Cardiovascular exam: Present regular rate, normal rhythm and normal heart sounds Neurological Exam Neurological exam: Present alert, oriented X3 and normal gait Medical Decision Making Jefe Inquiry Pt receiving controlled substance: No Jefe was queried for this patient: No Vital Signs: 11/30/23 16:35 Temperature 98.3 F Temperature Source Oral Pulse Rate [Right Radial] 88 Respiratory Rate 18 Blood Pressure [Right Arm] 109/74 L Blood Pressure Mean [Right Arm] 85 Blood Pressure Source [Right Arm] Automatic Cuff Blood Pressure Position [Right Arm] Sitting 02 Sat by Pulse Oximetry 98 Oxygen Delivery Method Room Air Lab Data Lab results reviewed: Yes I reviewed the patient's lab results.
[2023-11-30 16:56] LABS: UTC Strep Screen (Rapid) Negative (Negative)
[2023-11-30 16:58] VITALS: BP 109/74; PULSE 88; RESP 18; TEMP 36.8; O2SAT 98
== END 2023-11-30 17:00 | disposition home or self-care (01) ==
PROVIDERS: Emergency Provider Nurse Practitioner; PCP Family Medicine
DX: J02.9 Acute pharyngitis, unspecified (principal); H92.03 Otalgia, bilateral; R51.9 Headache, unspecified
CPT/HCPCS: 87880; 99212; 99214; G0463

== ENCOUNTER 2024-06-26 16:00 | Emergency (ER) | payer BC, SELFPAY ==
--- OUTSIDE RECORDS SUMMARY | 2024-06-26 16:04 | XMS_ITS | Encounter Summary ---
Author Organization [facility] Address [address] [place] [address] Care Team Providers Care Orthopedic Brace Maker Name Role Phone Yogi Abdul MD Primary Care Provider [phone] Reason for Referral * Physical Therapy (Routine) - Closed Specialty Diagnoses / Procedures Referred By Contac t Referred To Contact Physical Therapy Diagnoses Migraine without aura and without status migrainosus, not intractable Neck pain Procedures MN OFFICE/OUTPATIENT NEW MODERATE MDM 45-59 MINUTES Ania Allison APRN [address] [place] [address] Phone: tel: fax: [address] [phone] Phone: tel: fax: Referral ID Status Reason Start Date Expiration Date V isits Requested Visits Authorized [id number] Closed Specialty Services Required 07/15/2023 07/14/2024 1 1 * Diagnostic Imaging (Routine) - Closed Specialty Diagnoses / Procedures Referred By Contac t Referred To Contact Radiology Diagnoses Neck pain Procedures XR Spine Cervical 2 or 3 View Ania Allison APRN [address] [employer] [place] [phone] Phone: tel: fax: Referral ID Status Reason Start Date Expiration Date Visits Re quested Visits Authorized [id number] Closed 07/15/2023 07/14/2024 1 1 Reason for Visit * Reason Comments Peripheral Neuropathy Migraine Encounter Details Date Type Department Care Team (Martine st Contact Info) Description 07/15/2023 2:00 PM EST Office Visit [facility] [address] [phone] Ania Allison APRN [address] [place] [id number] Diabetic peripheral neuropathy associated with type 2 diabetes mellitus (Primary Dx); Migraine without aura and without status migrainosus, not intractable; Neck pain Social History Tobacco Use Types Packs/Day Years Used Date Smoking Tobacco: Every Day Cigarettes Smokeless Tobacco: Never Alcohol Use Standard Drinks/Week Comments No 0 (1 standard drink = 0.6 oz pur e alcohol) PHQ-2 Answer Date Recorded PHQ-2 Score 1 05/15/2019 Abuse Screen Answer Date Recorded Unsafe at Home or Work/School Not on file Feels Threatened by Someone? Not on file 03/2023 Does Anyone Keep You from Co ntacting Others or Doint Things Outside the Home? Not on file 05/02/2023 Physical Sign of Abuse Present Not on file 1 Housing Stability Answer Date Recorded Current Living Arrangements Not on file 03/2023 Potentially Unsafe Housing Conditions Not on kamini e 05/02/2023 Family and Community Support Answer Lucas e Recorded Help with Day-to-Day Activities Not on file 05/02/2023 Lonely or Isolated Not on file 05/02/2023 Employment Answer Date Recorded Do you want help finding or keeping work or a dora b? Not on file 05/02/2023 Disabilities Answer Date Recorded Concentrating, Remembering, or Making Decisions Difficulty Not on file 05/02/2023 Doing Errands Independently Difficulty Not on fi le 05/02/2023 Education Answer Date Recorded Help with school or training? Not on file Preferred Language Not on file 05/02/2023 Comments No Sex and Gender Information Value Date Recorded Sex Assigned at Not on file Legal Sex Female 12:43 PM EDT Gender Identity Not on file Sexual Orientation Not on file documented as of this encounter Last Filed Vital Signs Vital Sign Reading Time Taken Comments Blood Pressure 112/80 07/15/2023 1:46 PM EST Pulse 93 07/15/2023 1:46 PM EST Temperature - - Respiratory Rate - - Oxygen Saturation 98% 07/15/2023 1:46 PM EST Inhaled Oxygen Concentration - - Weight 118 kg (260 lb) 07/15/2023 1:46 PM EST Height 170.2 cm (5' 7 ) 07/15/2023 1:46 PM EST Body Mass Index 40.72 07/15/2023 1:46 PM EST documented in this encounter Progress Notes * Ania Allison APRN - 07/15/2023 2:00 PM EST Images from the original note were not included. Subjective: Patient ID: Pat Murphy is a 33 y.o. female. CC: Chief Complaint Patient presents with Peripheral Neuropathy Migraine HPI: History of Present Illness Today 07/15/2023- This is a 33-year-old female who was last seen in clinic on 01/05/2022 by Rosemarie Patricia APRN. She was seen for numbness and tingling in her feet with chronic low back pain and right leg sciatica present since around 2012. She had sciatica during her prior pregnancies. She was diagnosed with diabetes around 2014. She has had episodic migraines. She has had previous neurological work-up. At her last visit in clinic, she did undergo MRI of the lumbar spine with and without contrast on 02/12/2022. This was compared to MRI of the lumbar spine without contrast on 10/29/2021. There was note of improving edema along the inferior L5 endplate without evidence of bony destruction. Findings most likely due to degenerative disc changes. No evidence of osteomyelitis or discitis. No pathologic contrast enhancement. Stable multilevel degenerative disc changes of the spine with no significantspinal canal or neural foraminal narrowing. MRI of the brain without contrast completed 10/29/2021 was a normal non-contrast MRI of the brain accounting for artifact related to the patient's braces. 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 Today, she reports she is doing well. She states she was taking gabapentin 100 mg 3 times a day forher neuropathy, but she has been off of it for a while because she had not been able to get up herefor an appointment. She reports she was tolerating the gabapentin well. She states she has not had any trouble since she has been off the gabapentin and has not had any kind of symptoms from neuropathy like she had previously. She reports she would like to try to stay off the gabapentin if she can. She reports she has lost 30 pounds, and her blood glucose has been stable, around 60 to 70 mg/dL, which she feels is too low. She states she has not had recent labs done. She reports she does not seeher room service attendant until 10/2023. She states she is taking Ozempic, and she is still on an insulinpump. She states she is hoping that she might be able to come off the diabetic device once her A1c is checked. She states she has not had any imaging of her neck She reports she still experiences migraines. She states she has a popping in her neck, and she thinks that is where her migraines are coming from. She reports she has had this popping for approximately 5 months. She denies any injuries to her neck. She denies any trauma or falls. She reports itstarts in the middle of her neck and right under her skull. She reports she experiences nausea, vomiting, and sensitivity to sound with her migraines. She reports 4 to 5 migraine days per month. She reports she takes [id number] Excedrin Migraine. She states it seems like it helps some if she is able to take it in time. She denies a history of hypertension. She states she is off Wellbutrin. She has not been on prescription medication for migraines. She does take Vraylar, Buspirone, Lexapro and Trazodone. Previously on multiple SSRIs and wellbutrin in the past. Would not use beta elliot due to baseline depression. Typical and atypical neuropathy lab workup 12/2021 was essentially unremarkable for other etiology of her symptoms. The following portions of the patient's history were reviewed and updated as appropriate: allergies, current medications, past family history, past medical history, past social history, past surgicalhistory, and problem list. Past Medical History: Diagnosis Date Constipation Cystitis, interstitial Fatigue History of gestational diabetes mellitus History of ovarian cyst Joint pain diffuse joint pain Polycystic ovary syndrome Type 2 diabetes mellitus Past Surgical History: Procedure Laterality Date MOUTH SURGERY Social History Socioeconomic History Marital status: Tobacco Use Smoking status: Every Day Packs/day: .5 Types: Cigarettes Smokeless tobacco: Never Vaping Use Vaping Use: Never used Substance and Sexual Activity Alcohol use: No Drug use: No Sexual activity: Defer Family History Problem Relation Age of Onset Hypertension Mother Neuropathy Father Diabetes Father Hypertension Father Hypertension Maternal Grandmother Hypertension Maternal Grandfather Diabetes Paternal Grandmother Hypertension Paternal Grandmother Diabetes Paternal Grandfather Hypertension Paternal Grandfather Obesity Other Mental illness Other Hyperlipidemia Other Kidney disease Other Kidney transplanted Current Outpatient Medications: busPIRone (BUSPAR) 15 MG tablet, Take 1 tablet by mouth 3 (Three) Times a Day., Disp: , Rfl: cetirizine (zyrTEC) 10 MG tablet, Take 1 tablet by mouth Daily., Disp: , Rfl: Continuous Blood Gluc Sensor (Dexcom G6 Sensor), USE DIRECTED, Disp: 3 each, Rfl: 7 Continuous Blood Gluc Sensor (Dexcom G6 Sensor), USE 1 SENSOR DIRECTED, Disp: 3 each, Rfl: 11 Continuous Blood Gluc Transmit (Dexcom G6 Transmitter) misc, USE DIRECTED, Disp: 1 each, Rfl: 3 escitalopram (LEXAPRO) 20 MG tablet, Take 1 tablet by mouth Daily., Disp: , Rfl: fluticasone (FLONASE) 50 MCG/ACT nasal spray, 1 spray into the nostril(s) as directed by provider Daily., Disp: , Rfl: HumaLOG 100 UNIT/ML injection, INJECT UP TO 105 UNITS DAILY VIA INSULIN PUMP, Disp: 40 mL, Rfl: 5 Insulin Glargine (LANTUS SOLOSTAR) 100 UNIT/ML injection pen, Inject 30 Units under the skin into the appropriate area as directed Daily., Disp: 3 mL, Rfl: 1 Insulin Lispro, 1 Unit Dial, (HUMALOG) 100 UNIT/ML solution pen-injector, 1:5 carb ratio and 1:20 correction. MDD 40 Units daily. Use in the event if insulin pump malfunction, Disp: 3 mL, Rfl: 1 Insulin Pen Needle (BD Pen Needle Nithya U/F) 32G X 4 MM misc, 1 each Daily. Use 1 each 4 times dailywith Insulin pen, Disp: 400 each, Rfl: 1 Insulin Syringe-Needle U-100 (B-D INS SYR ULTRAFINE .5CC/30G) 30G X 1/2 0.5 ML misc, 1 Use for humalog TID and for high numbers if insulin pump malfunction, Disp: 100 each, Rfl: 5 metFORMIN ER (GLUCOPHAGE-XR) 500 MG 24 hr tablet, Take 2 tablets by mouth Daily With Breakfast., Disp: 180 tablet, Rfl: 3 oxybutynin XL (DITROPAN-XL) 10 MG 24 hr tablet, Take 1 tablet by mouth Daily., Disp: , Rfl: Semaglutide, 1 MG/DOSE, (Ozempic, 1 MG/DOSE,) 4 MG/3ML solution pen-injector, Inject 1 mg under theskin into the appropriate area as directed 1 (One) Time Per Week., Disp: 3 mL, Rfl: 11 traZODone (DESYREL) 50 MG tablet, Take 1 tablet by mouth As Needed., Disp: , Rfl: Etonogestrel (Nexplanon) 68 MG implant subdermal implant, Inject 1 each into the appropriate area of the skin as directed by provider 1 (One) Time., Disp: , Rfl: rizatriptan (MAXALT) 5 MG tablet, Take 1 tablet at at onset of migraine as needed, May repeat in 2 hours if needed, Disp: 9 tablet, Rfl: 11 tiZANidine (ZANAFLEX) 2 MG tablet, Take 1-2 tablets by mouth At Night As Needed for Muscle Spasms.,Disp: 30 tablet, Rfl: 1 Vraylar 1.5 MG capsule capsule, , Disp: , Rfl: Review of Systems Musculoskeletal: Positive for neck pain. Neurological: Positive for headaches. Negative for numbness. All other systems reviewed and are negative. Objective: BP 112/80 Pulse 93 Ht 170.2 cm (67 ) Wt 118 kg (260 lb) SpO2 98% BMI 40.72 kg/m?? Neurologic Exam Mental Status Oriented to person, place, and time. Speech: speech is normal Level of consciousness: alert Cranial Nerves Cranial nerves II through XII intact. Motor Exam Muscle bulk: normal Overall muscle tone: normal Strength Strength 5/5 throughout. Sensory Exam Vibration normal. Gait, Coordination, and Reflexes Gait Gait: normal Coordination Finger to nose coordination: normal Tremor Resting tremor: absent Intention tremor: absent Action tremor: absent Reflexes Reflexes 2+ except as noted. Right cupola worker: 2+ Left cupola worker: 2+ Right Campbell: absent Left Campbell: absent Right ankle clonus: absent Left ankle clonus: absent Physical Exam Constitutional: Appearance: Normal appearance. She is obese. Comments: BMI 40.7 Neck: Comments: No tenderness to palpation but significant tightness in the trapezius muscles bilaterally Musculoskeletal: Cervical back: Crepitus present. No edema, erythema, signs of trauma, rigidity or torticollis. No pain with movement, spinous process tenderness or muscular tenderness. Decreased range of motion. Neurological: Mental Status: She is alert and oriented to person, place, and time. Cranial Nerves: Cranial nerves 2-12 are intact. Motor: Motor strength is normal. Coordination: Fvkusa-Gcik-Hnqdfj Test normal. Gait: Gait is intact. Psychiatric: Speech: Speech normal. Assessment/Plan: Diagnoses and all orders for this visit: 1. Diabetic peripheral neuropathy associated with type 2 diabetes mellitus (Primary) - Hemoglobin A1c; Future - Comprehensive Metabolic Panel; Future - CBC (No Diff); Future 2. Migraine without aura and without status migrainosus, not intractable - Ambulatory Referral to Physical Therapy Evaluate and treat - rizatriptan (MAXALT) 5 MG tablet; Take 1 tablet at at onset of migraine as needed, May repeat in 2 hours if needed Dispense: 9 tablet; Refill: 11 3. Neck pain - XR Spine Cervical 2 or 3 View; Future - Ambulatory Referral to Physical Therapy Evaluate and treat - tiZANidine (ZANAFLEX) 2 MG tablet; Take 1-2 tablets by mouth At Night As Needed for Muscle Spasms. Dispense: 30 tablet; Refill: 1 She would like to remain off the gabapentin as she is not having neuropathy symptoms at this time. Her diabetes has significantly improved. She has not had a chance to follow up with her room service attendant but is concerned her blood glucose is running too low around 60 to 70mg/dL, so she did turn off her continuous insulin pump until she can get additional labs and discuss with PCP. I have gone ahead and ordered that lab for her to have today, and I can forward that to her room service attendant with [employer]. In regards to migraines, I have ordered rizatriptan to take at onset. If she consistently has more than 4 migraine days in a month, she can contact us for preventive medication options. She is currently on buspirone, escitalopram, and trazodone. She was previously on bupropion. She is also on Vraylar, so I would not use any other antidepressants for her. We could consider low dose topiramate. I would not use propranolol due to depression and risk for hypoglycemia with diabetic medications. She has already been on gabapentin. We could consider a monthly CGRP injectable or oral treatments. I have ordered physical therapy for her neck pain. I have ordered an X-ray today. She can take tizanidine as needed. Follow up in 7 months or sooner if needed. She verbalized understanding and agrees with the plan moving forward today. Reviewed medications, potential side effects and signs and symptoms to report. Discussed risk versus benefits of treatment plan with patient and/or family- including medications, labs and radiology that may be ordered. Addressed questions and concerns during visit. Patient and/or family verbalized un derstanding and agree with plan. During this visit the following were done: Labs Reviewed [x] Labs Ordered [x] Radiology Reports Reviewed [x] Radiology Ordered [] PCP Records Reviewed [] Referring Provider Records Reviewed [] ER Records Reviewed [] Hospital Records Reviewed [] History Obtained From Family [] Radiology Images Reviewed [x] Other Reviewed [x] Prior neuro notes reviewed Records Requested [] Transcribed from ambient dictation for Ania Allison APRN by Lucy Mccormick. 07/15/23 15:34 EST Patient or patient community representative verbalized consent to the visit recording. I have personally performed the services described in this document as transcribed by the above individual, and it is both accurate and complete. Ania Allison APRN 07/16/2023 08:02 EST Note to patient: The 21st Century Cures Act makes medical notes like these available to patients inthe interest of transparency. However, be advised this is a medical document. It is intended as peer to peer communication. It is written in medical language and may contain abbreviations or verbiagethat are unfamiliar. It may appear blunt or direct. Medical documents are intended to carry relevant information, facts as evident, and the clinical opinion of the provider. * Martha Grajeda MD - 07/15/2023 2:00 PM EST Could you please schedule this patient Aug 17 at 9:30 am? She has appt in October, but needs to be seen sooner. documented in this encounter Plan of Treatment Not on file documented as of this encounter Results * XR Spine Cervical 2 or 3 View (07/15/2023 2:43 PM EST) Anatomical Region Laterality Modality Spine, C-spine N/A Radiographic Faye ging 07/16/2023 2:03 PM EST Impressions 07/16/2023 2:04 PM EST Impression: 1.An acute cervical spine abnormality is not appreciated. Depending on clinical findings follow-up imaging with MR may be of benefit to reassess. Electronically Signed: Sergio Arnold MD 07/16/2023 2:04 PM EST Workstation ID: [id number] Narrative 07/16/2023 2:04 PM EST XR SPINE CERVICAL 2 OR 3 VW Date of Exam: 07/15/2023 2:31 PM EST Indication: neck pain x 5 months, causing headaches, no known trauma Comparison: None available. Findings: The vertebral body heights appear well-maintained. The relationship of the lateral pillars of C1 with respect C2 is not abnormal. The prevertebral soft tissues do not appear unusual. Procedure Note Sergio Arnold MD - 07/16/2023 XR SPINE CERVICAL 2 OR 3 VW Date of Exam: 07/15/2023 2:31 PM EST Indication: neck pain x 5 months, causing headaches, no known trauma Comparison: None available. Findings: The vertebral body heights appear well-maintained. The relationship of thelateral pillars of C1 with respect C2 is not abnormal. The prevertebralsoft tissues do not appear unusual. IMPRESSION: Impression: 1.An acute cervical spine abnormality is not appreciated. Depending onclinical findings follow-up imaging with MR may be of benefit toreassess. Electronically Signed: Sergio Arnold MD 07/16/2023 2:04 PM EST Workstation ID: [id number] Ania Parisi Allison [facility] IMG DIAGNOSTIC IMAGING ORDERABLES Final Result * (ABNORMAL) CBC (No Diff) (07/15/2023 2:34 PM EST) WBC 15.44(H) 3.40 - 10.80 10*3/mm3 07/15/2023 10:43 PM [facility] RBC 4.92 3.77 - 5.28 10*6/mm3 07/15/2023 10:43 PM [facility] Hemoglobin 14.9 12.0 - 15.9 g/dL 07/15/2023 10:43 PM [facility] Hematocrit 44.5 34.0 - 46.6 % 07/15/2023 10:43 PM [facility] MCV 90.4 79.0 - 97.0 fL 07/15/2023 10:43 PM [facility] MCH 30.3 26.6 - 33.0 pg 07/15/2023 10:43 PM [facility] MCHC 33.5 31.5 - 35.7 g/dL 07/15/2023 10:43 PM [facility] RDW 11.8(L) 12.3 - 15.4 % 07/15/2023 10:43 PM [facility] RDW-SD 38.3 37.0 - 54.0 fl 07/15/2023 10:43 PM [facility] MPV 10.1 6.0 - 12.0 fL 07/15/2023 10:43 PM [facility] Platelets 429 140 - 450 10*3/mm3 07/15/2023 10:43 PM [facility] Blood Venipuncture / Unknown 07/15/2023 2:34 PM EST 07/15/2023 2:55 PM EST Aniamonica Pariis Allison [facility] [employer] LAB BLOOD ORDERABLES Fi nal Result [facility]
[address] [place] [address], * Comprehensive Metabolic Panel (07/15/2023 2:34 PM EST) [facility] Glucose 98 65 - 99 mg/dL 07/15/2023 11:20 PM [facility] BUN 14 6 - 20 mg/dL 07/15/2023 11:20 PM [facility] Creatinine 0.62 0.57 - 1.00 mg/dL 07/15/2023 11:20 PM [facility] Sodium 142 136 - 145 mmol/L 07/15/2023 11:20 PM [facility] Potassium 4.3 3.5 - 5.2 mmol/L 07/15/2023 11:20 PM [facility] Chloride 104 98 - 107 mmol/L 07/15/2023 11:20 PM [facility] CO2 25.7 22.0 - 29.0 mmol/L 07/15/2023 11:20 PM [facility] Calcium 9.6 8.6 - 10.5 mg/dL 07/15/2023 11:20 PM [facility] Total Protein 7.3 6.0 - 8.5 g/dL 07/15/2023 11:20 PM [facility] Albumin 4.5 3.5 - 5.2 g/dL 07/15/2023 11:20 PM [facility] ALT (SGPT) 31 1 - 33 U/L 07/15/2023 11:20 PM [facility] AST (SGOT) 19 1 - 32 U/L 07/15/2023 11:20 PM [facility] Alkaline Phosphatase 82 39 - 117 U/L 07/15/2023 11:20 PM [facility] Total Bilirubin <0.2 0.0 - 1.2 mg/dL 07/15/2023 11:20 PM [facility] Globulin 2.8 gm/dL 07/15/2023 11:20 PM [facility] A/G Ratio 1.6 g/dL 07/15/2023 11:20 PM EST [facility] BUN/Creatinine Ratio 22.6 7.0 - 25.0 07/15/2023 11:20 PM EST [facility] Anion Gap 12.3 5.0 - 15.0 mmol/L 07/15/2023 11:20 PM EST [facility] eGFR 119.3 >60.0 mL/min/1.7 3 07/15/2023 11:20 PM EST [facility] Blood Venipuncture / Unknown 07/15/2023 2:34 PM EST 07/15/2023 2:55 PM EST [facility] - 07/15/2023 11:20 PM EST GFR Normal >60 Chronic Kidney Disease <60 Kidney Failure <15 [facility] [employer] [facility] LAB BLOOD ORDERABLES Fi nal Result Performing Organization Address [facility] Co de Phone Number [facility]
[address] [phone] * (ABNORMAL) Hemoglobin A1c (07/15/2023 2:34 PM EST) Hemoglobin A1C 6.50(H) 4.80 - 5.60 % 07/15/2023 10:55 PM EST [facility] Blood Venipuncture / Unknown 07/15/2023 2:34 PM EST 07/15/2023 2:55 PM EST [facility] - 07/15/2023 10:55 PM EST Hemoglobin A1C Ranges: Increased Risk for Diabetes ??5.7% to 6.4% Diabetes ? >= 6.5% Diabetic Goal ?< 7.0% [facility] Parisi Allison [facility] LAB BLOOD ORDERABLES Fi nal Result Performing Organization Address City/[facility]/ZIP Co de Phone Number [facility]
[address] [place] [address], documented in this encounter Visit Diagnoses Diagnosis Diabetic peripheral neuropathy associated with type 2 diabetes mellitus- Primary Migraine without aura and without status migrainosus, not intractable Neck pain Cervicalgia Neck pain Cervicalgia documented in this encounter Care Teams Orthopedic Brace Maker Relationship Specialty Start Date End Date Yogi Abdul MD [address] [place] [address] PCP - General Family Medicine 03/06/21 documented as of this encounter
--- OUTSIDE RECORDS SUMMARY | 2024-06-26 16:04 | XMS_ITS | Encounter Summary ---
Author Organization [facility] Address [address] [place] [address] Care Team Providers Care Base Manager Name Role Phone Yogi Abdul MD Primary Care Provider [phone] Reason for Visit * Reason Comments Diabetes Encounter Details Date Type Department Care Team (Late st Contact Info) Description 08/24/2023 4:00 PM EST Office Visit [facility] ENDOCRINOLOGY [address] [place] [id number] Martha Grajeda MD [address] [place], [place] [id number] Diabetic peripheral neuropathy associated with type 2 diabetes mellitus (Primary Dx); Hyperthyroidism; Type 2 diabetes mellitus with hypoglycemia without coma, with long-term current use of insulin; Insulin pump titration Social History Tobacco Use Types Packs/Day Years [...] Sign Reading Time Taken Comments Blood Pressure 120/64 08/24/2023 4:03 PM EST Pulse 98 08/24/2023 4:03 PM EST Temperature - - Respiratory Rate - - Oxygen Saturation - - Inhaled Oxygen Concentration - - Weight 118 kg (260 lb) 08/24/2023 4:03 PM EST Height 170.2 cm (5' 7.01 ) 08/24/2023 4:03 PM ES T Body Mass Index 40.71 08/24/2023 4:03 PM EST documented in this encounter Progress Notes * Martha Grajeda MD - 08/24/2023 4:00 PM EST Chief complaint Diabetes Subjective Pat Murphy is a 33 y.o. female is here today for follow-up. Diabetes mellitus type 2 diagnosed 09/15/15. Meds: Insulin via T-slim pump Monitoring - Dexcom and glucose data was reviewed and analyzed. Glucose is 98% at goal. Ozempic continued. She feels well on the medication, no side effects March 2017 she was diagnosed with hyperthyroidism TSH was < 0.004 and free T4 of 1.63. TSI antibodies were positive at 486. She underwent thyroid uptake and scan 04/29/2017 which showed normal thyroid uptake of 36%. Heterogenous uptake in the right inferior thyroid, otherwise normal thyroid scan She took a short course of PTU and TFT are stable since then After starting Ozempic the glucose improved. She often has hypoglycemia episodes after meals, trieddisconnecting the pump or just using basal . Medications Current Outpatient Medications: busPIRone (BUSPAR) 15 MG tablet, Take 1 tablet by mouth 3 (Three) Times a Day., Disp: , Rfl: cetirizine (zyrTEC) 10 MG tablet, Take 1 tablet by mouth Daily., Disp: , Rfl: Continuous Blood Gluc Transmit (Dexcom G6 Transmitter) misc, USE DIRECTED, Disp: 1 each, Rfl: 3 escitalopram (LEXAPRO) 20 MG tablet, Take 1 tablet by mouth Daily., Disp: , Rfl: Etonogestrel (Nexplanon) 68 MG implant subdermal implant, Inject 1 each into the appropriate area of the skin as directed by provider 1 (One) Time., Disp: , Rfl: fluticasone (FLONASE) 50 MCG/ACT nasal spray, 1 spray into the nostril(s) as directed by provider Daily., Disp: , Rfl: HumaLOG 100 UNIT/ML injection, INJECT UP TO 105 UNITS DAILY VIA INSULIN PUMP, Disp: 40 mL, Rfl: 5 Insulin Lispro, 1 Unit Dial, (HUMALOG) 100 [...] tablet by mouth Daily., Disp: , Rfl: rizatriptan (MAXALT) 5 MG tablet, Take 1 tablet at at onset of migraine as needed, May repeat in 2 hours if needed, Disp: 9 tablet, Rfl: 11 tiZANidine (ZANAFLEX) 2 MG tablet, Take 1-2 tablets by mouth At Night As Needed for Muscle Spasms.,Disp: 30 tablet, Rfl: 1 traZODone (DESYREL) 50 MG tablet, Take 1 tablet by mouth As Needed., Disp: , Rfl: Vraylar 1.5 MG capsule capsule, , Disp: , Rfl: Continuous Blood Gluc Sensor (Dexcom G7 Sensor) [facility], Use 1 each Every 10 (Ten) Days., Disp: 3 each, Rfl: 11 Semaglutide, 2 MG/DOSE, (Ozempic, 2 MG/DOSE,) 8 MG/3ML solution pen-injector, Inject 2 mg under theskin into the appropriate area as directed 1 (One) Time Per Week., Disp: 3 mL, Rfl: 11 Review of systems Review of Systems Constitutional: Positive for fatigue. All other systems reviewed and are negative. Physical exam Objective Blood pressure 120/64, pulse 98, height 170.2 cm (67.01 ), weight 118 kg (260 lb), not currently . Body mass index is 40.71 kg/m??. Physical Exam Constitutional: She is oriented to person, place, and time. She appears well-developed. HENT: Head: Normocephalic and atraumatic. Eyes: Conjunctivae are normal. Neck: No thyroid mass and no thyromegaly present. Cardiovascular: Regular rhythm, normal heart sounds and normal pulses. Pulmonary/Chest: No respiratory distress. Musculoskeletal: No swelling. Neurological: She is alert and oriented to person, place, and time. Psychiatric: Thought content normal. Vitals reviewed. LABS AND IMAGING No visits with results within 1 Month(s) from this visit. Latest known visit with results is: Lab on 07/15/2023 Component Date Value Ref Range Status Hemoglobin A1C 07/15/2023 6.50 (H) 4.80 - 5.60 % Final Glucose 07/15/2023 98 65 - 99 mg/dL Final BUN 07/15/2023 14 6 - 20 mg/dL Final Creatinine 07/15/2023 0.62 0.57 - 1.00 mg/dL Final Sodium 07/15/2023 142 136 - 145 mmol/L Final Potassium 07/15/2023 4.3 3.5 - 5.2 mmol/L Final Chloride 07/15/2023 104 98 - 107 mmol/L Final CO2 07/15/2023 25.7 22.0 - 29.0 mmol/L Final Calcium 07/15/2023 9.6 8.6 - 10.5 mg/dL Final Total Protein 07/15/2023 7.3 6.0 - 8.5 g/dL Final Albumin 07/15/2023 4.5 3.5 - 5.2 g/dL Final ALT (SGPT) 07/15/2023 31 1 - 33 U/L Final AST (SGOT) 07/15/2023 19 1 - 32 U/L Final Alkaline Phosphatase 07/15/2023 82 39 - 117 U/L Final Total Bilirubin 07/15/2023 <0.2 0.0 - 1.2 mg/dL Final Globulin 07/15/2023 2.8 gm/dL Final A/G Ratio 07/15/2023 1.6 g/dL Final BUN/Creatinine Ratio 07/15/2023 22.6 7.0 - 25.0 Final Anion Gap 07/15/2023 12.3 5.0 - 15.0 mmol/L Final eGFR 07/15/2023 119.3 >60.0 mL/min/1.73 Final WBC 07/15/2023 15.44 (H) 3.40 - 10.80 10*3/mm3 Final RBC 07/15/2023 4.92 3.77 - 5.28 10*6/mm3 Final Hemoglobin 07/15/2023 14.9 12.0 - 15.9 g/dL Final Hematocrit 07/15/2023 44.5 34.0 - 46.6 % Final MCV 07/15/2023 90.4 79.0 - 97.0 fL Final MCH 07/15/2023 30.3 26.6 - 33.0 pg Final MCHC 07/15/2023 33.5 31.5 - 35.7 g/dL Final RDW 07/15/2023 11.8 (L) 12.3 - 15.4 % Final RDW-SD 07/15/2023 38.3 37.0 - 54.0 fl Final MPV 07/15/2023 10.1 6.0 - 12.0 fL Final Platelets 07/15/2023 429 140 - 450 10*3/mm3 Final Assessment Assessment & Plan Problems Addressed this Visit Other Hyperthyroidism Insulin pump titration Diabetic peripheral neuropathy associated with type 2 diabetes mellitus - Primary Relevant Medications Semaglutide, 2 MG/DOSE, (Ozempic, 2 MG/DOSE,) 8 MG/3ML solution pen-injector Type 2 diabetes mellitus with hypoglycemia Relevant Medications Semaglutide, 2 MG/DOSE, (Ozempic, 2 MG/DOSE,) 8 MG/3ML solution pen-injector Diagnoses Codes Comments Diabetic peripheral neuropathy associated with type 2 diabetes mellitus - Primary ICD-10-CM: E11.42 ICD-9-CM: 250.60, 357.2 Hyperthyroidism ICD-10-CM: E05.90 ICD-9-CM: 242.90 Type 2 diabetes mellitus with hypoglycemia without coma, with long-term current use of insulin ICD-10-CM: E11.649, Z79.4 ICD-9-CM: 250.80, 251.2, V58.67 Insulin pump titration ICD-10-CM: Z46.81 ICD-9-CM: V53.91 Plan Continue insulin via T-slim insulin pump. Dexcom and insulin pump data analyzed. At goal 98% of the time. Glucose is often low, particularly after meals. Cont Ozempic and increase the dose to 2 mg weekly. I have made adjustments to the insulin pump, reduced the dose at meals. G7 sensor sent and she would need to upgrade the pump first. Recent labs reviewed. Hypoglycemia precautions reviewed. Follow-up in 3 months documented in this encounter Plan of Treatment Not on file documented as of this encounter Visit Diagnoses Diagnosis Diabetic peripheral neuropathy associated with type 2 diabetes mellitus- Primary Hyperthyroidism Thyrotoxicosis without mention of goiter or other cause, without mention of thyrotoxic crisis or storm Type 2 diabetes mellitus with hypoglycemia without coma, with long-term current use of insulin Insulin pump titration Fitting and adjustment of insulin pump documented in this encounter Care Teams Base Manager Relationship Specialty Start Date End Date Yogi Abdul MD [address] [place] [address] PCP - General Family Medicine 03/06/21 documented as of this encounter
--- OUTSIDE RECORDS SUMMARY | 2024-06-26 16:04 | XMS_ITS | Encounter Summary ---
[facility] Organization [facility] Address [address] [place] [address] Care Team Providers Care Supervisor [employer] Name Role Phone Yogi Abdul MD Primary Care Provider Reason for Visit * Reason Comments Diabetes Encounter Details Date Type Department Care Team (Late st Contact Info) Description 01/16/2024 9:00 AM EDT Office Visit [facility] ENDOCRINOLOGY [address] [place] [phone] Tamiko Gracia PA-C [address] [place], [place] [id number] Type 2 diabetes mellitus with hypoglycemia without coma, with long-term current use of insulin (Primary Dx) Social History Tobacco Use Types Packs/Day Years [...] Sign Reading Time Taken Comments Blood Pressure 122/66 01/16/2024 8:48 AM EDT Pulse 84 01/16/2024 8:48 AM EDT Temperature - - Respiratory Rate - - Oxygen Saturation 98% 01/16/2024 8:48 AM EDT Inhaled Oxygen Concentration - - Weight 111 kg (244 lb 14.4 oz) 01/16/2024 8:48 A M EDT Height 170.2 cm (5' 7.01 ) 01/16/2024 8:48 AM ED T Body Mass Index 38.35 01/16/2024 8:48 AM EDT documented in this encounter Progress Notes * Tamiko Gracia PA-C - 01/16/2024 5:37 PM EDTAssociated Problem(s): Type 2 diabetes mellitus with hypoglycemia Diabetes is controlled A1C 6.0% 01/01/2024 CGM Interpretation: Mostly stable blood sugars without significant hyperglycemia or hypoglycemia Rx: Continue Ozempic 2 mg weekly.Discussed risk for increasing blood sugars over time with stoppinginsulin use. Discussed restarting metformin 500 mg ER if blood sugars are increasing with stopping insulin (over 1:30 in the morning; over 152- hour postprandial). Foot exam performed today. Microalbumin ordered today. Encouraged yearly eye hczn-rl-bc-date per patient. LDL at goal. Encourage continued efforts towards weight loss. * Tamiko Gracia PA-C - 01/16/2024 9:00 AM EDT Chief Complaint Patient presents with Diabetes HPI Pat Murphy is a 33 y.o. female presents today for follow-up evaluation of type II diabetes.They were last seen for this 08/24/[address] Grajeda. A1c 07/15/2023 6.5%. Since last visit she reports she stopped insulin pump 11/2023 due to frequent hypoglycemia (previously using 13 units daily). She has continued Ozempic 2 mg and has been monitoring blood sugars with continued improvement. She has been working on continuing efforts towards weight loss through diet and exercise. Without additional concerns today. Hypoglycemia improved since stopping insulin pump. Denies SOB, chest pain, constipation, diarrhea, abdominal pain, increased thirst or urination. Denies vision changes. Denies numbness. Denies open sores. She had recent labs through her PCP-scanned to chart. She had concerns for fatigue and vitamin D and B12 noted to be low and has been advised supplementing for these. Type 2 Diabetes: Diagnosed with diabetes: 2015; hx gestational diabetes Complications: mild neuropathy (improving) A1c 6.0% 01/01/2024 Current regimen includes:Dexcom, Ozempic 2 mg Previously: Metformin 500 mg 2 tablets twice daily, tandem t:slim (13 units) Compliance with medications is good. - ACEi/ARB: not taking - Statin: not taking - Aspirin: Not indicated CGM downloaded: [employer] Dates: 01/03/2024 to 01/16/2024 Data: 99% in range, less than 1% high, less than 1% low, less than 1% very low, 0% very high; 79% days with CGM data Interpretation: Mostly stable blood sugars without significant hyperglycemia or hypoglycemia DM Health Maintenance: Ophthalmology: 07/2023; Monofilament / Foot exam: performed today Urine microalbumin: normal, 06/11/2022 LDL: 88, 01/01/2024 Hyperthyroidism: TSH was < 0.004 and free T4 of 1.63. TSI antibodies were positive at 486. Thyroid uptake and scan 04/29/2017 which showed normal thyroid uptake of 36%. Heterogenous uptake inthe right inferior thyroid, otherwise normal thyroid scan. She took a short course of PTU and TFT are stable since then. Labs from 01/01/2024 TSH: 2.20, FT4: 1.0 06/11/2022: TSH: 1.57, FT4: 1.09 Social Hx: Occupation: [employer] Diet: Meals: 1-2x/day Exercise: increasing activity Past Medical History: Diagnosis Date Constipation Cystitis, interstitial Fatigue History of gestational diabetes mellitus History of ovarian cyst Joint pain diffuse joint pain Polycystic ovary syndrome Type 2 diabetes mellitus Past Surgical History: Procedure Laterality Date MOUTH SURGERY Family History Problem Relation Age of Onset Hypertension Mother Neuropathy Father Diabetes Father Hypertension Father Hypertension Maternal Grandmother Hypertension Maternal Grandfather Diabetes Paternal Grandmother Hypertension Paternal Grandmother Diabetes Paternal Grandfather Hypertension Paternal Grandfather Obesity Other Mental illness Other Hyperlipidemia Other Kidney disease Other Kidney transplanted Social History Socioeconomic History Marital status: Tobacco Use Smoking status: Every Day Current packs/day: 0.50 Types: Cigarettes Smokeless tobacco: Never Vaping Use Vaping status: Never Used Substance and Sexual Activity Alcohol use: No Drug use: No Sexual activity: Defer Allergies Allergen Reactions Ciprofloxacin Hives Sulfa Antibiotics Hives Current Outpatient Medications on File Prior to Visit Medication Sig Dispense Refill busPIRone (BUSPAR) 15 MG tablet Take 1 tablet by mouth 3 (Three) Times a Day. cetirizine (zyrTEC) 10 MG tablet Take 1 tablet by mouth Daily. Continuous Blood Gluc Sensor (Dexcom G7 Sensor) misc Use 1 each Every 10 (Ten) Days. 3 each 11 Continuous Blood Gluc Transmit (Dexcom G6 Transmitter) misc USE DIRECTED 1 each 3 escitalopram (LEXAPRO) 20 MG tablet Take 1 tablet by mouth Daily. Etonogestrel (Nexplanon) 68 MG implant subdermal implant Inject 1 each into the appropriate area ofthe skin as directed by provider 1 (One) Time. fluticasone (FLONASE) 50 MCG/ACT nasal spray 1 spray into the nostril(s) as directed by provider Daily. HumaLOG 100 UNIT/ML injection INJECT UP TO 105 UNITS DAILY VIA INSULIN PUMP 40 mL 5 Insulin Lispro, 1 Unit Dial, (HUMALOG) 100 UNIT/ML solution pen-injector 1:5 carb ratio and 1:20 correction. MDD 40 Units daily. Use in the event if insulin pump malfunction 3 mL 1 Insulin Pen Needle (BD Pen Needle Nithya U/F) 32G X 4 MM misc 1 each Daily. Use 1 each 4 times daily with Insulin pen 400 each 1 Insulin Syringe-Needle U-100 (B-D INS SYR ULTRAFINE .5CC/30G) 30G X 1/2 0.5 ML misc 1 Use for humalog TID and for high numbers if insulin pump malfunction 100 each 5 oxybutynin XL (DITROPAN-XL) 10 MG 24 hr tablet Take 1 tablet by mouth Daily. rizatriptan (MAXALT) 5 MG tablet Take 1 tablet at at onset of migraine as needed, May repeat in 2 hours if needed 9 tablet 11 tiZANidine (ZANAFLEX) 2 MG tablet Take 1-2 tablets by mouth At Night As Needed for Muscle Spasms. 30 tablet 1 traZODone (DESYREL) 50 MG tablet Take 1 tablet by mouth As Needed. Vraylar 1.5 MG capsule capsule [DISCONTINUED] metFORMIN ER (GLUCOPHAGE-XR) 500 MG 24 hr tablet Take 2 tablets by mouth Daily With Breakfast. 180 tablet 3 [DISCONTINUED] Semaglutide, 2 MG/DOSE, (Ozempic, 2 MG/DOSE,) 8 MG/3ML solution pen-injector Inject 2 mg under the skin into the appropriate area as directed 1 (One) Time Per Week. 3 mL 11 No current facility-administered medications on file prior to visit. Review of Systems Constitutional: Positive for appetite change and fatigue. Negative for activity change, unexpected weight gain and unexpected weight loss. Eyes: Negative for visual disturbance. Respiratory: Negative for shortness of breath. Cardiovascular: Negative for chest pain. Gastrointestinal: Negative for abdominal pain, constipation, diarrhea and GERD. Endocrine: Negative for polydipsia and polyuria. Skin: Negative for rash and skin lesions. Neurological: Negative for dizziness and numbness. BP 122/66 (BP Location: Left arm, Patient Position: Sitting, Cuff Size: Adult) Pulse 84 Ht 170.2 cm (67.01 ) Wt 111 kg (244 lb 14.4 oz) SpO2 98% BMI 38.35 kg/m?? Physical Exam Constitutional: Appearance: Normal appearance. Cardiovascular: Rate and Rhythm: Normal rate and regular rhythm. Pulses: Dorsalis pedis pulses are 2+ on the right side and 2+ on the left side. Posterior tibial pulses are 2+ on the right side and 2+ on the left side. Pulmonary: Effort: Pulmonary effort is normal. Musculoskeletal: General: Normal range of motion. Right foot: No deformity. Left foot: No deformity. Feet: Right foot: Protective Sensation: 5 sites tested. 5 sites sensed. Skin integrity: Skin integrity normal. No ulcer. Toenail Condition: Right toenails are normal. Left foot: Protective Sensation: 5 sites tested. 5 sites sensed. Skin integrity: Skin integrity normal. No ulcer. Toenail Condition: Left toenails are normal. Comments: Diabetic Foot Exam Performed and Monofilament Test Performed Skin: General: Skin is warm and dry. Neurological: General: No focal deficit present. Mental Status: She is alert and oriented to person, place, and time. Psychiatric: Mood and Affect: Mood normal. Behavior: Behavior normal. LABS AND IMAGING CMP: Lab Results Component Value Date BUN 14 07/15/2023 CREATININE 0.62 07/15/2023 EGFR 119.3 07/15/2023 BCR 22.6 07/15/2023 NA 142 07/15/2023 K 4.3 07/15/2023 CO2 25.7 07/15/2023 CALCIUM 9.6 07/15/2023 ALBUMIN 4.5 07/15/2023 BILITOT <0.2 07/15/2023 ALKPHOS 82 07/15/2023 AST 19 07/15/2023 ALT 31 07/15/2023 Lipid Panel: Lab Results Component Value Date TRIG 150 (H) 06/11/2022 HDL 28 (L) 06/11/2022 VLDL 27 06/11/2022 LDL 92 06/11/2022 HbA1c: Lab Results Component Value Date HGBA1C 5.6 01/16/2024 HGBA1C 6.50 (H) 07/15/2023 Glucose: Lab Results Component Value Date POCGLU 186 (A) 01/16/2024 Microalbumin: Lab Results Component Value Date MALBCRERATIO 01/16/2024 Comment: Unable to calculate TSH: Lab Results Component Value Date TSH 1.570 06/11/2022 Assessment and Plan Diagnoses and all orders for this visit: 1. Type 2 diabetes mellitus with hypoglycemia without coma, with long-term current use of insulin (Primary) Assessment & Plan: Diabetes is controlled A1C 6.0% 01/01/2024 CGM Interpretation: Mostly stable blood sugars without significant hyperglycemia or hypoglycemia Rx: Continue Ozempic 2 mg weekly.Discussed risk for increasing blood sugars over time with stoppinginsulin use. Discussed restarting metformin 500 mg ER if blood sugars are increasing with stopping insulin (over 1:30 in the morning; over 152-hour postprandial). Foot exam performed today. Microalbumin ordered today. Encouraged yearly eye pyqb-wy-um-date per patient. LDL at goal. Encourage continued efforts towards weight loss. Orders: - POC Glycosylated Hemoglobin (Hb A1C) - POC Glucose, Blood - Microalbumin / Creatinine Urine Ratio - Urine, Clean Catch - metFORMIN ER (GLUCOPHAGE-XR) 500 MG 24 hr tablet; Take 1 tablet by mouth Daily With Breakfast. Dispense: 90 tablet; Refill: 1 - Semaglutide, 2 MG/DOSE, (Ozempic, 2 MG/DOSE,) 8 MG/3ML solution pen-injector; Inject 2 mg under the skin into the appropriate area as directed 1 (One) Time Per Week. Dispense: 3 mL; Refill: 11 Return in about 3 months (around 04/17/2024). The patient was instructed to contact the clinic with any interval questions or concerns. Tamiko Gracia PA-C Endocrinology Please note that portions of this note were completed with a voice recognition program. documented in this encounter Plan of Treatment Not on file documented as of this encounter Procedures Procedure Name Priority Date/Time Associated Diagnosis Comments MICROALBUMIN / CREATININE URINE RATIO Routine 01/16/2024 10:05 AM EDT Type 2 diabetes mellitus with hypoglycemia without coma, with long-term current use of insulin POCT GLUCOSE, BLD (NON STRIP) Routine 01/16/2024 9:06 AM EDT Type 2 diabetes mellitus with hypoglycemia without coma, with long-term current use of insulin POCT GLYCOSYLATED HEMOGLOBIN (HGB A1C) Routine 01/16/2024 9:06 AM EDT Type 2 diabetes mellitus with hypoglycemia without coma, with long-term current use of insulin documented in this encounter Results * Microalbumin / Creatinine Urine Ratio - Urine, Clean Catch (01/16/2024 10:05 AM EDT) Microalbumin/C reatinine Ratio 01/16/2024 2:46 PM EDT [facility] Comment:Unable to calculate Creatinine, Urine 214.3 mg/dL 01/16/2024 2:46 PM EDT [facility] Microalbumin, Urine <1.2 mg/dL 01/16/2024 2:46 PM EDT [facility] Urine Urine specimen obtained by clean catch procedure / Unknown Collection / Unknown 01/16/2024 10:05 AM EDT 01/16/2024 10:05 AM EDT us Tamiko Gracia PA-C URINE ORDERABLES Final Result [facility]
[address] [phone] * (ABNORMAL) POC Glucose, Blood (01/16/2024 9:06 AM EDT) Glucose 186(A) 70 - 130 mg/dL Lot Number [id number] Expiration Date 09/30/23 Blood 01/16/2024 9:06 AM EDT Tamiko Gracia PA-C POINT OF CARE TEST ORDERABLES Final Result * POC Glycosylated Hemoglobin (Hb A1C) (01/16/2024 9:06 AM EDT) Hemoglobin A1C 5.6 4.5 - 5.7 % [facility] Lot Number [id number] [facility] Expiration Date 10/09/25 [facility] Blood 01/16/2024 9:06 AM EDT Tamiko Gracia PA-C POINT OF CARE TEST ORDERABLES Final Result [facility]
[address] [place] [address], documented in this encounter Visit Diagnoses Diagnosis Type 2 diabetes mellitus with hypoglycemia without coma, with long-term current use of insulin- Primary documented in this encounter Care Teams Supervisor [employer] Relationship Specialty Start Date End Date Yogi Abdul MD [address] [id number] PCP - General Family Medicine 03/06/21 documented as of this encounter
--- OUTSIDE RECORDS SUMMARY | 2024-06-26 16:04 | XMS_ITS | Encounter Summary ---
Author Organization [facility] Address [address] [place] [address] Care Team Providers Care Flight Test Supervisor Name Role Phone Yogi Abdul MD Primary Care Provider [phone] Encounter Details Date Type Department Care Team (Late st Contact Info) Description 02/14/2024 5:00 AM EDT Outside Facility Service [facility] CARD[facility] [address] [place] [phone] Eliza Marcus MD [address] [place] [address] Social History Tobacco Use Types Packs/Day Years Used Date Smoking Tobacco: Every Day Cigarettes Passive Smoke Exposure: Current Smokeless Tobacco: Never Alcohol Use Standard Drinks/Week Comments Not Currently 0 (1 standard drink = 0.6 oz [...] on file documented as of this encounter Plan of Treatment Not on file documented as of this encounter Visit Diagnoses Not on filedocumented in this encounter Care Teams Flight Test Supervisor Relationship Specialty Start Date End Date Yogi Abdul MD [address] [id number] PCP - General Family Medicine 03/06/21 documented as of this encounter
--- OUTSIDE RECORDS SUMMARY | 2024-06-26 16:04 | XMS_ITS | Encounter Summary ---
Author Organization [facility] Address [address] [place] [address] Care Team Providers Care Corporate Traffic Manager Name Role Phone Yogi Abdul MD Primary Care Provider Reason for Visit * Reason Onset Date Comments Med Refill 04/13/2023 Encounter Details Date Type Department Care Team (Late st Contact Info) Description 04/13/2023 Refill [facility] NEUROLOGY [address] [phone] Ania Allison APRN [address] [facility] [address] [place] [address] Numbness in feet Social History Tobacco Use Types Packs/Day Years Used Date Smoking Tobacco: Every Day Cigarettes Smokeless Tobacco: Never Alcohol Use Standard Drinks/Week Comments No 0 (1 standard drink = 0.6 oz pur e alcohol) PHQ-2 Answer Date Recorded PHQ-2 Score 1 05/15/2019 Comments No Sex and Gender Information Value Date Recorded Sex Assigned at Not on file Legal Sex Female 12:43 PM EDT Gender Identity Not on file Sexual Orientation Not on file documented as of this encounter Miscellaneous Notes * Telephone Encounter - Ania Allison APRN - 04/15/2023 3:23 PM EDT Ok. I have denied these. She must be seen for any refills. Of note, she canceled her appointment for today. * Telephone Encounter - Trena Dumont CMA - 04/15/2023 3:08 PM EDT I spoke with pharmacy and pt picked up #90 on 01-12-2022 and then again on 06-10-2022 nothing filledsince * Telephone Encounter - Ania Allison APRN - 04/13/2023 4:35 PM EDT Per jose, patient had 1 fill of gabapentin on 06/10/2022. We are not filling this until follow up. I would call pharmacy to make sure no other fills not reported on jose. It does not appear she is on this continuously so she would need to wait for follow up visit. Ania Wade APRN * Telephone Encounter - Trena Dumont CMA - 04/13/2023 4:27 PM EDT Rx Refill Note Requested Prescriptions Pending Prescriptions Disp Refills gabapentin (NEURONTIN) 100 MG capsule 90 capsule 5 Sig: Take 1 capsule by mouth 3 (Three) Times a Day. Last office visit with prescribing clinician: 01/05/2022 Last telemedicine visit with prescribing clinician: Visit date not found Next office visit with prescribing clinician: 07/15/2023 Would you like a call back once the refill request has been completed: [] Yes [] No If the office needs to give you a call back, can they leave a voicemail: [] Yes [] No Trena Dumont CMA 04/13/23, 16:27 EDT * Telephone Encounter - Simba Chowdhury RegSched Rep - 04/13/2023 4:17 PM EDT MEDICATION REFILL REQUEST Caller: Pat Murphy Relationship: Self Best call back number: [phone] Requested Prescriptions: Requested Prescriptions Pending Prescriptions Disp Refills gabapentin (NEURONTIN) 100 MG capsule 90 capsule 5 Sig: Take 1 capsule by mouth 3 (Three) Times a Day. Pharmacy where request should be sent: [address] [phone] [facility] [phone] FX Last office visit with prescribing clinician: 01/05/2022 W/ MOOSE PAREDES APRN Last telemedicine visit with prescribing clinician: Visit date not found Next office visit with prescribing clinician: 07/15/2023 Additional details provided by patient: PT REPORTS SHE HAS 2 CAPSULES OF GABAPENTIN LEFT. Does the patient have less than a 3 day supply?: [x] Yes [] No Would you like a call back once the refill request has been completed?: [] Yes [x] No If the office needs to give you a call back, can they leave a voicemail?: [] Yes [x] No PLEASE REVIEW AND ADVISE. Bri Cedeño Rep 04/13/23 16:17 EDT documented in this encounter Plan of Treatment Not on file documented as of this encounter Visit Diagnoses Diagnosis Numbness in feet documented in this encounter Care Teams Corporate Traffic Manager Relationship Specialty Start Date End Date Yogi Abdul MD [address] [place] [address] PCP - General Family Medicine 03/06/21 documented as of this encounter
--- OUTSIDE RECORDS SUMMARY | 2024-06-26 16:04 | XMS_ITS | Encounter Summary ---
Author Organization [facility] Address [address] [place] [address] Care Team Providers Care Bonsai Culturist Name Role Phone Yogi Abdul MD Primary Care Provider [phone] Reason for Visit * Reason Onset Date Comments LEARY - INSULIN ADJUSTMENTS 02/17/2023 Encounter Details Date Type Department Care Team (Late st Contact Info) Description 02/17/2023 Telephone [facility] [address] [place] [address] Martha Leary MD [address] [place] [address] LEARY - INSULIN ADJUSTMENTS Social History Tobacco Use Types Packs/Day Years [...] encounter Miscellaneous Notes * Telephone Encounter - Rebecca Multani CMA - 02/17/2023 11:27 AM EDT We can't dowload the tandem pump However, I have downloaded the dexcom Advised the patient Dr. Leary will review and we will call her back with adjustments * Telephone Encounter - Kirstie Gustafson RegSched Rep - 02/17/2023 9:37 AM EDT Caller: Jeffrey Russell Relationship: Self Best call back number: [phone] What medications are you currently taking: Current Outpatient Medications on File Prior to Visit Medication Sig Dispense Refill amoxicillin (AMOXIL) 875 MG tablet Take 875 mg by mouth 2 (Two) Times a Day. buPROPion SR (WELLBUTRIN SR) 150 MG 12 hr tablet TAKE 1 TABLET BY MOUTH ONCE DAILY FOR 7 DAYS, THENTAKE 1 TABLET TWICE DAILY THEREAFTER busPIRone (BUSPAR) 15 MG tablet Take 15 mg by mouth 3 (Three) Times a Day. cetirizine (zyrTEC) 10 MG tablet Take 10 mg by mouth Daily. Continuous Blood Gluc Sensor (Dexcom G6 Sensor) USE DIRECTED 3 each 7 Continuous Blood Gluc Sensor (Dexcom G6 Sensor) USE 1 SENSOR DIRECTED 3 each 11 Continuous Blood Gluc Transmit (Dexcom G6 Transmitter) misc USE DIRECTED 1 each 3 escitalopram (LEXAPRO) 20 MG tablet Take 20 mg by mouth Daily. fluticasone (FLONASE) 50 MCG/ACT nasal spray 1 spray into the nostril(s) as directed by provider Daily. gabapentin (NEURONTIN) 100 MG capsule Take 1 capsule by mouth 3 (Three) Times a Day. 90 capsule 5 HumaLOG 100 UNIT/ML injection INJECT UP TO 105 UNITS DAILY VIA INSULIN PUMP 40 mL 5 Insulin Glargine (LANTUS SOLOSTAR) 100 UNIT/ML injection pen Inject 30 Units under the skin into the appropriate area as directed Daily. 3 mL 1 Insulin Lispro, 1 Unit Dial, (HUMALOG) [...] if insulin pump malfunction 100 each 5 metFORMIN ER (GLUCOPHAGE-XR) 500 MG 24 hr tablet Take 2 tablets by mouth Daily With Breakfast. 180 tablet 3 oxybutynin XL (DITROPAN-XL) 10 MG 24 hr tablet Take 10 mg by mouth Daily. Semaglutide, 1 MG/DOSE, (Ozempic, 1 MG/DOSE,) 4 MG/3ML solution pen-injector Inject 1 mg under the skin into the appropriate area as directed 1 (One) Time Per Week. 3 mL 11 traZODone (DESYREL) 50 MG tablet Take 50 mg by mouth As Needed. Vraylar 1.5 MG capsule capsule No current facility-administered medications on file prior to visit. Which medication are you concerned about: INSULIN Who prescribed you this medication: DR LEARY What are your concerns: PATIENT STATES SHE HAS MADE DIETARY CHANGES AND IS STARTING TO LOSE WEIGHT.SHE'S NOT USING INSULIN LIKE SHE USED TO AND DOESN'T WANT TO KEEP WASTING IT. SO SHE WOULD LIKE TO SPEAK TO SOMEONE ABOUT MAYBE MAKING SOME ADJUSTMENTS TO HER UNITS OF INSULIN. PLEASE CALL PATIENT. THANK YOU documented in this encounter Plan of Treatment Not on file documented as of this encounter Visit Diagnoses Not on filedocumented in this encounter Care Teams Bonsai Culturist Relationship Specialty Start Date End Date Yogi Abdul MD [address] [place] [address] PCP - General Family Medicine 03/06/21 documented as of this encounter
--- OUTSIDE RECORDS SUMMARY | 2024-06-26 16:04 | XMS_ITS | Encounter Summary ---
Author Organization [facility] Address [address] [place] [address] Care Team Providers Care Auto Detailer Name Role Phone Yogi Abdul MD Primary Care Provider [phone] Encounter Details Date Type Department Care Team (Late st Contact Info) Description 07/15/2023 2:45 PM EST Lab [facility] STATION [address] [place] [phone] Diabetic peripheral neuropathy associated with type 2 diabetes mellitus Social History Tobacco Use Types Packs/Day Years [...] on file documented as of this encounter Progress Notes * Ania Allison APRN - 07/15/2023 2:45 PM EST Please let Pat know that her hgba1c is 6.5%. Please let her know her blood counts do show an elevation in her white blood cells concerning for an infection. I would recommend she see her PCP for further evaluation and repeating labs to ensure these come down. Her liver, kidney function and electro lytes are normal. Please fax a copy of labs to PCP on file and notify PCP clinical team of need forfollow up on white blood cell count elevation with patient. I will forward labs to Endocrinology Dr. Grajeda for her reference. Thanks, Ania Allison APRN documented in this encounter Plan of Treatment Not on file documented as of this encounter Procedures Procedure Name Priority Date/Time Associated Diagnosis Comments CBC (NO DIFF) Routine 07/15/2023 2:34 PM EST Diabetic peripheral neuropathy associated with type 2 diabetes mellitus HEMOGLOBIN A1C Routine 07/15/2023 2:34 PM EST Diabetic peripheral neuropathy associated with type 2 diabetes mellitus COMPREHENSIVE METABOLIC PANEL Routine 07/15/2023 2:34 PM EST Diabetic peripheral neuropathy associated with type 2 diabetes mellitus documented in this encounter Results * (ABNORMAL) CBC (No Diff) (07/15/2023 2:34 PM EST) WBC 15.44(H) 3.40 - 10.80 10*3/mm3 07/15/2023 10:43 PM EST [facility] RBC 4.92 3.77 - 5.28 10*6/mm3 07/15/2023 10:43 PM [facility] Hemoglobin 14.9 12.0 - 15.9 g/dL 07/15/2023 10:43 PM [facility] Hematocrit 44.5 34.0 - 46.6 % 07/15/2023 10:43 PM [facility] MCV 90.4 79.0 - 97.0 fL 07/15/2023 10:43 PM [facility] MCH 30.3 26.6 - 33.0 pg 07/15/2023 10:43 PM [facility] MCHC 33.5 31.5 - 35.7 g/dL 07/15/2023 10:43 PM [facility] RDW 11.8(L) 12.3 - 15.4 % 07/15/2023 10:43 PM [facility] RDW-SD 38.3 37.0 - 54.0 fl 07/15/2023 10:43 PM [facility] MPV 10.1 6.0 - 12.0 fL 07/15/2023 10:43 PM [facility] Platelets 429 140 - 450 10*3/mm3 07/15/2023 10:43 PM [facility] Blood Venipuncture / Unknown 07/15/2023 2:34 PM EST 07/15/2023 2:55 PM EST Ania Allison AQUATICS SPECIALIST LAB BLOOD ORDERABLES Fi nal Result [facility]
[address] [place] [address], * Comprehensive Metabolic Panel (07/15/2023 2:34 PM EST) [facility] Glucose 98 65 - 99 mg/dL 07/15/2023 11:20 PM EST [facility] BUN 14 6 - 20 mg/dL 07/15/2023 11:20 PM [facility] Creatinine 0.62 0.57 - 1.00 mg/dL 07/15/2023 11:20 PM [facility] Sodium 142 136 - 145 mmol/L 07/15/2023 11:20 PM [facility] Potassium 4.3 3.5 - 5.2 mmol/L 07/15/2023 11:20 PM [facility] Chloride 104 98 - 107 mmol/L 07/15/2023 11:20 PM [facility] CO2 25.7 22.0 - 29.0 mmol/L 07/15/2023 11:20 PM [facility] Calcium 9.6 8.6 - 10.5 mg/dL 07/15/2023 11:20 PM [facility] Total Protein 7.3 6.0 - 8.5 g/dL 07/15/2023 11:20 PM [facility] Albumin 4.5 3.5 - 5.2 g/dL 07/15/2023 11:20 PM [facility] ALT (SGPT) 31 1 - 33 U/L 07/15/2023 11:20 PM [facility] AST (SGOT) 19 1 - 32 U/L 07/15/2023 11:20 PM [facility] Alkaline Phosphatase 82 39 - 117 U/L 07/15/2023 11:20 PM [facility] Total Bilirubin <0.2 0.0 - 1.2 mg/dL 07/15/2023 11:20 PM [facility] Globulin 2.8 gm/dL 07/15/2023 11:20 PM [facility] A/G Ratio 1.6 g/dL 07/15/2023 11:20 PM [facility] BUN/Creatinine Ratio 22.6 7.0 - 25.0 07/15/2023 11:20 PM [facility] Anion Gap 12.3 5.0 - 15.0 mmol/L 07/15/2023 11:20 PM [facility] eGFR 119.3 >60.0 mL/min/1.7 3 07/15/2023 11:20 PM EST [facility] Blood Venipuncture / Unknown 07/15/2023 2:34 PM EST 07/15/2023 2:55 PM EST [facility] - 07/15/2023 11:20 PM EST GFR Normal >60 Chronic Kidney Disease <60 Kidney Failure <[address] [facility] B[facility]OD ORDERAB[facility] Fi nal Result Performing Organization Address [facility] Co de Phone Number [facility]
[address] [place] [address], * (ABNORMAL) Hemoglobin A1c (07/15/2023 2:34 PM EST) Hemoglobin A1C 6.50(H) 4.80 - 5.60 % 07/15/2023 10:55 PM EST [facility] Blood Venipuncture / Unknown 07/15/2023 2:34 PM EST 07/15/2023 2:55 PM EST [facility]ATORY - 07/15/2023 10:55 PM EST Hemoglobin A1C Ranges: Increased Risk for Diabetes ??5.7% to 6.4% Diabetes ? >= 6.5% Diabetic Goal ?< 7.0% [facility] AQUATICS SPECIALIST LAB BLOOD ORDERABLES Fi nal Result Performing Organization Address [facility] de Phone Number [facility]
[address] [place] [address], documented in this encounter Visit Diagnoses Diagnosis Diabetic peripheral neuropathy associated with type 2 diabetes mellitus documented in this encounter Care Teams Auto Detailer Relationship Specialty Start Date End Date Yogi Abdul MD [address] [place], [place] [id number] PCP - General Family Medicine 03/06/21 documented as of this encounter
--- OUTSIDE RECORDS SUMMARY | 2024-06-26 16:04 | XMS_ITS | Encounter Summary ---
Author Organization [facility] Address [address] [place] [address] Care Team Providers Care Travel Attendants Name Role Phone Yogi Abdul MD Primary Care Provider [phone] Reason for Visit * Reason Comments Med Refill Encounter Details Date Type Department Care Team (Late st Contact Info) Description 08/21/2023 Refill [facility]CR[facility]OLOG[facility] [address] [place] [phone] Martha Grajeda MD [address] [place], [place] [id number] Social History Tobacco Use Types Packs/Day Years [...] encounter Miscellaneous Notes * Telephone Encounter - Rosa Weinberg MA - 08/22/2023 9:36 AM EST Rx Refill Note Requested Prescriptions Pending Prescriptions Disp Refills Continuous Blood Gluc Transmit (Dexcom G6 Transmitter) misc [Pharmacy Med Name: DEXCOM G6 TRANSMITTER] 1 each 3 Sig: USE DIRECTED Last office visit with prescribing clinician: 06/30/2022 Last telemedicine visit with prescribing clinician: Visit date not found Next office visit with prescribing clinician: 08/24/2023 Would you like a call back once the refill request has been completed: [] Yes [] No If the office needs to give you a call back, can they leave a voicemail: [] Yes [] No Rosa Weinberg MA 08/22/23, 09:36 EST documented in this encounter Plan of Treatment Not on file documented as of this encounter Visit Diagnoses Not on filedocumented in this encounter Care Teams Travel Attendants Relationship Specialty Start Date End Date Yogi Abdul MD [address] [place] [address] PCP - General Family Medicine 03/06/21 documented as of this encounter
--- OUTSIDE RECORDS SUMMARY | 2024-06-26 16:04 | XMS_ITS | Encounter Summary ---
Author Organization [facility] Address [address] [place] [address] Care Team Providers Care Medical Assistant Name Role Phone Yogi Abdul MD Primary Care Provider [phone] Reason for Visit * Reason Comments Med Refill Encounter Details Date Type Department Care Team (Late st Contact Info) Description 07/22/2023 Refill [facility] ENDOCRINOLOGY [address] [place] [phone] Martha Grajeda MD [address] [place], [place] [id number] Social History Tobacco Use Types Packs/Day Years [...] Telephone Encounter - Rosa Weinberg MA - 07/22/2023 8:05 AM EST Rx Refill Note Requested Prescriptions Pending Prescriptions Disp Refills Ozempic, 1 MG/DOSE, 4 MG/3ML solution pen-injector [Pharmacy Med Name: Ozempic (1 MG/DOSE) 4 MG/3MLSubcutaneous Solution Pen-injector] 3 mL 0 Sig: INJECT 1 MG UNDER THE SKIN INTO THE APPROPRIATE AREA ONCE A WEEK DIRECTED Last office visit with prescribing clinician: 06/30/2022 Last telemedicine visit with prescribing clinician: Visit date not found Next office visit with prescribing clinician: 11/22/2023 Would you like a call back once the refill request has been completed: [] Yes [] No If the office needs to give you a call back, can they leave a voicemail: [] Yes [] No Rosa Weinberg MA 07/22/23, 08:05 EST documented in this encounter Plan of Treatment Not on file documented as of this encounter Visit Diagnoses Not on filedocumented in this encounter Care Teams Medical Assistant Relationship Specialty Start Date End Date Yogi Abdul MD [address] [place] [address] PCP - General Family Medicine 03/06/21 documented as of this encounter
--- OUTSIDE RECORDS SUMMARY | 2024-06-26 16:04 | XMS_ITS | Encounter Summary ---
Author Organization [facility] Address [address] [place] [address] Care Team Providers Care Inseam Trimmer Name Role Phone Yogi Abdul MD Primary Care Provider [phone] Reason for Referral * Cardiac (Routine) - Closed Specialty Diagnoses / Procedures Referred By Contac t Referred To Contact Diagnoses Dizziness Procedures Holter Monitor - 72 Hour Up To 15 Days Sharon Vasquez APRN [address] [address] Phone: tel: fax: [facility] [address] [place] [address] Phone: tel: Referral ID Status Reason Start Date Expiration Date Visits Re quested Visits Authorized [id number] Closed 02/14/2024 02/13/2025 1 1 Reason for Visit * Reason Comments Cardiac Consult Encounter Details Date Type Department Care Team (Late st Contact Info) Description 02/14/2024 9:00 AM EDT Office Visit [facility] [address] [place] [id number] Sharon Vasquez APRN [address] [place] [address] Chest pain, atypical (Primary Dx); Dizziness; Cigarette smoker; Screening for lipid disorders Social History Tobacco Use Types Packs/Day Years Used Date Smoking Tobacco: Every Day Cigarettes Passive Smoke Exposure: Current Smokeless Tobacco: Never Tobacco Cessation:Ready to Q uit: No; Counseling Given: No Alcohol Use Standard Drinks/Week Comments Not Currently [...] Sign Reading Time Taken Comments Blood Pressure 144/80 02/14/2024 9:01 AM EDT Pulse 79 02/14/2024 9:01 AM EDT Temperature - - Respiratory Rate - - Oxygen Saturation 99% 02/14/2024 9:01 AM EDT Inhaled Oxygen Concentration - - Weight 109 kg (240 lb) 02/14/2024 9:01 AM EDT Height 170.2 cm (5' 7 ) 02/14/2024 9:01 AM EDT Body Mass Index 37.59 02/14/2024 9:01 AM EDT documented in this encounter Patient Instructions * Patient Instructions* Sharon Vasquez, FOOD SERVICE COUNTER CLERK - 02/14/2024 9:00 AM EDT Images from the original note were not included. Mediterranean Diet A Mediterranean diet refers to food and lifestyle choices that are based on the traditions of countries located on the [place] Sea. It focuses on eating more fruits, vegetables, whole grains, beans, nuts, seeds, and heart-healthy fats, and eating less dairy, meat, eggs, and processed foods with added sugar, salt, and fat. This way of eating has been shown to help prevent certain conditions and improve outcomes for people who have chronic diseases, like kidney disease and heart disease. What are tips for following this plan? Reading food labels Check the serving size of packaged foods. For foods such as rice and pasta, the serving size refersto the amount of cooked product, not dry. Check the total fat in packaged foods. Avoid foods that have saturated fat or trans fats. Check the ingredient list for added sugars, such as corn syrup. Shopping Buy a variety of foods that offer a balanced diet, including: Fresh fruits and vegetables (produce). Grains, beans, nuts, and seeds. Some of these may be available in unpackaged forms or large amounts(in bulk). Fresh seafood. Poultry and eggs. Low-fat dairy products. Buy whole ingredients instead of prepackaged foods. Buy fresh fruits and vegetables in-season from local farmers markets. Buy plain frozen fruits and vegetables. If you do not have access to quality fresh seafood, buy precooked frozen shrimp or canned fish, such as tuna, salmon, or sardines. Stock your pantry so you always have certain foods on hand, such as olive oil, canned tuna, canned tomatoes, rice, pasta, and beans. Cooking Cook foods with extra-virgin olive oil instead of using butter or other vegetable oils. Have meat as a side dish, and have vegetables or grains as your main dish. This means having meat in small portions or adding small amounts of meat to foods like pasta or stew. Use beans or vegetables instead of meat in common dishes like chili or lasagna. [place] with different cooking methods. Try roasting, broiling, steaming, and saut??ing vegetables. Add frozen vegetables to soups, stews, pasta, or rice. Add nuts or seeds for added healthy fats and plant protein at each meal. You can add these to yogurt, salads, or vegetable dishes. Marinate fish or vegetables using olive oil, lemon juice, garlic, and fresh herbs. Meal planning Plan to eat one vegetarian meal one day each week. Try to work up to two vegetarian meals, if possible. Eat seafood two or more times a week. Have healthy snacks readily available, such as: Vegetable sticks with hummus. Italian yogurt. Fruit and nut trail mix. Eat balanced meals throughout the week. This includes: Fruit: 2-3 servings a day. Vegetables: 4-5 servings a day. Low-fat dairy: 2 servings a day. Fish, poultry, or lean meat: 1 serving a day. Beans and legumes: 2 or more servings a week. Nuts and seeds: 1-2 servings a day. Whole grains: 6-8 servings a day. Extra-virgin olive oil: 3-4 servings a day. Limit red meat and sweets to only a few servings a month. Lifestyle Cook and eat meals together with your family, when possible. Drink enough fluid to keep your urine pale yellow. Be physically active every day. This includes: Aerobic exercise like running or swimming. Leisure activities like gardening, walking, or housework. Get 7-8 hours of sleep each night. If recommended by your health care provider, drink red wine in moderation. This means 1 glass a dayfor non women and 2 glasses a day for men. A glass of wine equals 5 oz (150 mL). What foods should I eat? Fruits Apples. Apricots. Avocado. Berries. Bananas. Cherries. Dates. Figs. Grapes. Kiki. Melon. Oranges.Peaches. Plums. Pomegranate. Vegetables Artichokes. Beets. Broccoli. Cabbage. Carrots. Eggplant. Green beans. Chard. Kale. Spinach. Onions.Leeks. Peas. Squash. Tomatoes. Peppers. Radishes. Grains Whole-grain pasta. Brown rice. Bulgur wheat. Polenta. Couscous. Whole-wheat bread. Oatmeal. Quinoa. Meats and other proteins Beans. Almonds. [place] seeds. [place] nuts. Peanuts. Cod. [place]. Scallops. Shrimp. Tuna. Tilapia. Clams. Oysters. Eggs. Poultry without skin. Dairy Low-fat milk. Cheese. Italian yogurt. Fats and oils Extra-virgin olive oil. Avocado oil. Grapeseed oil. Beverages Water. Red wine. Herbal tea. Sweets and desserts Italian yogurt with honey. Baked apples. Poached pears. Reading mix. Seasonings and condiments Basil. Cilantro. Coriander. Cumin. Mint. Parsley. [place]. Kavya. Tarragon. Garlic. Oregano. Thyme.Pepper. Balsamic vinegar. Tahini. Hummus. Tomato sauce. Olives. Mushrooms. The items listed above may not be a complete list of foods and beverages you can eat. Contact a dietitian for more information. What foods should I limit? This is a list of foods that should be eaten rarely or only on special occasions. Fruits Fruit canned in syrup. Vegetables Deep-fried potatoes (setswana fries). Grains Prepackaged pasta or rice dishes. Prepackaged cereal with added sugar. Prepackaged snacks with added sugar. Meats and other proteins Beef. Pork. Camacho. Poultry with skin. Hot dogs. Paiz. Dairy Ice cream. Sour cream. Whole milk. Fats and oils Butter. Canola oil. Vegetable oil. Beef fat (tallow). Lard. Beverages Juice. Sugar-sweetened soft drinks. Beer. Liquor and spirits. Sweets and desserts Cookies. Cakes. Pies. Candy. Seasonings and condiments Mayonnaise. Pre-made sauces and marinades. The items listed above may not be a complete list of foods and beverages you should limit. Contact a dietitian for more information. Summary The Mediterranean diet includes both food and lifestyle choices. Eat a variety of fresh fruits and vegetables, beans, nuts, seeds, and whole grains. Limit the amount of red meat and sweets that you eat. If recommended by your health care provider, drink red wine in moderation. This means 1 glass a dayfor non women and 2 glasses a day for men. A glass of wine equals 5 oz (150 mL). This information is not intended to replace advice given to you by your health care provider. Make sure you discuss any questions you have with your health care provider. Document Revised: 08/15/2020 Document Reviewed: 06/12/2020 [employer] Patient Education ?? 2021 [employer] documented in this encounter Progress Notes * Sharon Vasquez APRN - 02/14/2024 10:56 AM EDTAssociated Problem(s): Dizziness 5-day Holter monitor to rule out arrhythmias. * Sharon Vasquez APRN - 02/14/2024 10:55 AM EDTAssociated Problem(s): Cigarette smoker Highly encouraged smoking cessation. She is willing to quit and will work on a plan to taper down. * Sharon Vasquez APRN - 02/14/2024 10:54 AM EDTAssociated Problem(s): Chest pain, atypical She completed an echocardiogram on 02/09/2024 that showed normal LV size and function, EF 55-60%. Nosignificant valvular stenosis or regurgitation. She underwent a nuclear stress test on 02/13/2024 that revealed no evidence of ischemia. EKG from 01/20/2024 revealed normal sinus rhythm, normal ECG. Previous episode of chest pain most likely due to muscle strain. * Sharon Vasquez APRN - 02/14/2024 9:00 AM EDT Images from the original note were not included. [facility] Provider Note Date: 02/14/2024 Name: Pat Murphy : 1990 PCP: Yogi Abdul MD Chief Complaint Patient presents with Cardiac Consult Subjective History of Present Illness Pat Murphy is a 33 y.o. female with past medical history of diabetes, hypothyroidism, celiac disease and PCOS who presents today to establish cardiac care. Patient was evaluated in the ER at [facility] on 01/20/2024 with complaints of chest pain that radiated to her left arm.Workup in the ER was unremarkable. She was scheduled for outpatient echo and stress test that was or dered by the ER physician. She completed an echocardiogram on 02/09/2024 that showed normal LV size and function, EF 55-60%. No significant valvular stenosis or regurgitation. She underwent a nuclear stress test on 02/13/2024 that revealed no evidence of ischemia. EKG from 01/20/2024 revealed normal sinus rhythm, normal ECG. She has no previous cardiac history. She does have a family history of CAD and CHF. Her father had a three-vessel CABG in his late 40s/early 50s. He recently of advanced heart failure. Her paternal grandfather also had CAD and due to a heart attack. She has not had any recurrent episodes of chest pain. She feels like she may have pulled a muscle while digging in her garden on the day the chest pain occurred. While she was in the ER, the physician noted that her blood pressure was really low. It dropped to 80s over 50s. She has always had a lowerbaseline blood pressure. She reports occasional dizziness and palpitations. She denies shortness ofbreath, lower extremity edema or syncope. No specialty comments available. Reports Denies Chest Pain [x] [] Shortness of Air [] [x] Palpitations [x] [] Edema [] [x] Dizziness [x] [] Syncope [] [x] Allergies Allergen Reactions Ciprofloxacin Hives Sulfa Antibiotics Hives Current Outpatient Medications: Semaglutide, 2 MG/DOSE, (Ozempic, 2 MG/DOSE,) 8 MG/3ML solution pen-injector, Inject 2 mg under theskin into the appropriate area as directed 1 (One) Time Per Week., Disp: 3 mL, Rfl: 11 Past Medical History: Diagnosis Date Constipation Cystitis, [...] Every Day Current packs/day: 0.50 Types: Cigarettes Passive exposure: Current Smokeless tobacco: Never Vaping Use Vaping status: Never Used Substance and Sexual Activity Alcohol use: Not Currently Drug use: Not Currently Sexual activity: Defer Objective Vital Signs: BP 144/80 Pulse 79 Ht 170.2 cm (67 ) Wt 109 kg (240 lb) SpO2 99% BMI 37.59 kg/m?? Estimated body mass index is 37.59 kg/m?? as calculated from the following: Height as of this encounter: 170.2 cm (67 ). Weight as of this encounter: 109 kg (240 lb). Physical Exam Vitals reviewed. Constitutional: Appearance: Normal appearance. HENT: Head: Normocephalic. Cardiovascular: Rate and Rhythm: Normal rate and regular rhythm. Heart sounds: Normal heart sounds. Pulmonary: Effort: Pulmonary effort is normal. Breath sounds: Normal breath sounds. Musculoskeletal: Right lower leg: No edema. Left lower leg: No edema. Skin: General: Skin is warm and dry. Capillary Refill: Capillary refill takes less than 2 seconds. Neurological: General: No focal deficit present. Mental Status: She is alert and oriented to person, place, and time. Psychiatric: Mood and Affect: Mood normal. Behavior: Behavior normal. Cardiology studies reviewed: Echocardiogram and stress test reviewed Assessment and Plan Diagnoses and all orders for this visit: 1. Chest pain, atypical (Primary) Assessment & Plan: She completed an echocardiogram on 02/09/2024 that showed normal LV size and function, EF 55-60%. Nosignificant valvular stenosis or regurgitation. She underwent a nuclear stress test on 02/13/2024 that revealed no evidence of ischemia. EKG from 01/20/2024 revealed normal sinus rhythm, normal ECG. Previous episode of chest pain most likely due to muscle strain. 2. Dizziness Assessment & Plan: 5-day Holter monitor to rule out arrhythmias. Orders: - Holter Monitor - 72 Hour Up To 15 Days 3. Cigarette smoker Assessment & Plan: Highly encouraged smoking cessation. She is willing to quit and will work on a plan to taper down. 4. Screening for lipid disorders - Lipid Panel; Future Recommendations: ER if symptoms increase and Report if any new/changing symptoms immediately Follow Up Return in about 4 weeks (around 03/13/2024) for cardiac testing results. Patient was given instructions and counseling regarding her condition or for health maintenance advice. Please see specific information pulled into the AVS if appropriate. documented in this encounter Plan of Treatment Not on file documented as of this encounter Procedures Procedure Name Priority Date/Time Associated Diagnosis Comments HOLTER MONITOR >48HRS UP TO 7 DAYS HOOK-UP & INTERP Routine 02/14/2024 10:05 AM EDT Dizziness documented in this encounter Results * HOLTER MONITOR >48HRS UP TO 7 DAYS HOOK-UP & INTERP (02/14/2024 10:05 AM EDT) Anatomical Region Laterality Modality Ultrasound Narrative 03/01/2024 4:46 PM EDT ?A normal monitor study. ?No significant pauses or arrhythmias. See raw data for further information. Study Description Monitor placed on patient by Bign Pitt MA on 02/14/2024 at 10:00 EDT. Instructions were provided to patient on use of holter monitor and duration of monitoring. The monitor was scanned on 02/29/2024. The patient was monitored for 4 days 23 hours and 20 minutes. Indications for this exam include dizziness. Average HR: 83. Min HR: 53. Max HR: 152. Study Impressions A normal monitor study. No significant pauses or arrhythmias. See raw data for further information. Sharon Vasquez APRN [facility] Final Result documented in this encounter Visit Diagnoses Diagnosis Chest pain, atypical- Primary Dizziness Dizziness and giddiness Cigarette smoker Tobacco use disorder Screening for lipid disorders documented in this encounter Care Teams Inseam Trimmer Relationship Specialty Start Date End Date Yogi Abdul MD [address] [place] [id number] PCP - General Family Medicine 03/06/21 documented as of this encounter
--- OUTSIDE RECORDS SUMMARY | 2024-06-26 16:04 | XMS_ITS | Encounter Summary ---
[facility] Address [address] [place] [address] Care Team Providers Care Electronic Scale Assembler And Tester Name Role Phone Yogi Abdul MD Primary Care Provider [phone] Encounter Details Date Type Department Care Team (Late st Contact Info) Description 02/15/2024 [place] [place] [facility] [address] [place] [phone] Jania Mitchell RegSched Rep Social History Tobacco Use Types Packs/Day Years [...] as of this encounter Progress Notes * Jania Mitchell RegSched Rep - 02/15/2024 8:52 AM EDT ..My name is Fireda Henson and I am the Literary Agent for [facility]. I would like to thank you for being a loyal patient. If you do not mind I would like to ask you a few questions about your recent visit with us. Please feel free to reply if you wish to provide us with feedback on your first visit with our practice. First, could you tell me what went well with your recent visit? Secondly, we are always looking for ways to make our patients' experiences even better. Do you haveany recommendations on ways we may improve? Finally, overall were you satisfied with your first visit to us as a [facility] facility? In the next few days, you will be receiving a Patient Experience Survey. Thank you for taking the time to answer a few questions today. I hope you have a good day. documented in this encounter Plan of Treatment Not on file documented as of this encounter Visit Diagnoses Not on filedocumented in this encounter Care Teams Electronic Scale Assembler And Tester Relationship Specialty Start Date End Date Yogi Abdul MD [address] [place] [address] PCP - General Family Medicine 03/06/21 documented as of this encounter
--- OUTSIDE RECORDS SUMMARY | 2024-06-26 16:04 | XMS_ITS | Encounter Summary ---
[facility] Address [address] [place] [address] Care Team Providers Care Field Operator Name Role Phone Yogi Abdul MD Primary Care Provider [phone] Encounter Details Date Type Department Care Team (Late st Contact Info) Description 02/17/2023 Telephone [facility] [address] [place] [address] Martha Grajeda MD [address] [place], [place] [id number] Social History Tobacco Use Types Packs/Day Years [...] Encounter - Rebecca Multani CMA - 02/17/2023 11:[address] Grajeda reviewed pump download Will change settings to 12pm-9am-1.3 9am-12pm-1.35 Change carb ration to 1:8 Correction 1:25 target 110 Provided changes to patient documented in this encounter Plan of Treatment Not on file documented as of this encounter Visit Diagnoses Not on filedocumented in this encounter Care Teams Field Operator Relationship Specialty Start Date End Date Yogi Abdul MD [address] [place] [address] PCP - General Family Medicine 03/06/21 documented as of this encounter
--- OUTSIDE RECORDS SUMMARY | 2024-06-26 16:04 | XMS_ITS | Encounter Summary ---
[facility] Address [address] [place] [address] Care Team Providers Care Chemical Processing Technician Name Role Phone Yogi Abdul MD Primary Care Provider [phone] Encounter Details Date Type Department Care Team (Late st Contact Info) Description 07/19/2023 Telephone [facility] [address] [phone] Ania Allison, CERTIFIED PEDORTHOTIST [address] [facility] [address] [place], [place] [id number] Social History Tobacco Use Types Packs/Day Years [...] encounter Miscellaneous Notes * Telephone Encounter - Kanika Justice MA - 07/19/2023 2:19 PM EST Called patient and gave her the results. She goes to her PCP tomorrow so she will let them know * Telephone Encounter - Kanika Justice MA - 07/19/2023 2:12 PM EST ----- Message from Ania Allison APRN sent at 07/16/2023 8:10 AM EST ----- Please let Pat know that her [id number] [...] on filedocumented in this encounter Care Teams Chemical Processing Technician Relationship Specialty Start Date End Date Yogi Abdul MD [address] [place], [place] [id number] PCP - General Family Medicine 03/06/21 documented as of this encounter
--- OUTSIDE RECORDS SUMMARY | 2024-06-26 16:04 | XMS_ITS | Encounter Summary ---
Author Organization [facility] Address [address] [place] [address] Care Team Providers Care Erector Operator Name Role Phone Yogi Abdul MD Primary Care Provider [phone] Reason for Referral * Diagnostic Imaging (Routine) - Closed Specialty Diagnoses / Procedures Referred By Contac t Referred To Contact Radiology Diagnoses Neck pain Procedures XR Spine Cervical 2 or 3 View Ania Allison APRN [address] [place] [address] Phone: tel: fax: Referral ID Status Reason Start Date Expiration Date Visits Re quested Visits Authorized [id number] Closed 07/15/2023 07/14/2024 1 1 Reason for Visit * Diagnostic Imaging (Routine) - Closed Specialty Diagnoses / Procedures Referred By Contac t Referred To Contact Radiology Diagnoses Neck pain Procedures XR Spine Cervical 2 or 3 View Ania Allison APRN [address] [place] [address] Phone: tel: fax: Referral ID Status Reason Start Date Expiration Date Visits Re quested Visits Authorized [id number] Closed 07/15/2023 07/14/2024 1 1 Encounter Details Date Type Department Care Team (Latest Contact Info) Description 07/15/2023 2:30 PM EST - 07/15/2023 11:59 PM EST Hospital Encounter [facility] XRAY AT [address] [place] [address] Neck pain Discharge Disposition: Home or Self Care Social History Tobacco Use Types Packs/Day Years [...] on file documented as of this encounter Medications at Time of Discharge amoxicillin (AMOXIL) 875 MG tablet Take 1 tablet by mouth 2 (Two) Times a Day. 06/24/2022 3 busPIRone (BUSPAR) 15 MG tablet Take 1 tablet by mouth 3 (Three) Times a Day. 05/14/2020 4 cetirizine (zyrTEC) 10 MG tablet Take 1 tablet by mouth Daily. 07/09/2019 4 Continuous Blood Gluc Sensor (Dexcom G6 Sensor) USE DIRECTED 3 each 7 01/27/2021 4 Continuous Blood Gluc Sensor (Dexcom G6 Sensor) USE 1 SENSOR DIRECTED 3 each 11 02/09/2023 4 Continuous Blood Gluc Transmit (Dexcom G6 Transmitter) misc USE DIRECTED 1 each 3 06/21/2022 4 escitalopram (LEXAPRO) 20 MG tablet Take 1 tablet by mouth Daily. 05/14/2020 4 Etonogestrel (Nexplanon) 68 MG implant subdermal implant Inject 1 each into the appropriate area of the skin as directed by provider 1 (One) Time. 4 fluticasone (FLONASE) 50 MCG/ACT nasal spray 1 spray into the nostril(s) as directed by provider Daily. 07/09/2019 4 HumaLOG 100 UNIT/ML injection INJECT UP TO 105 UNITS DAILY VIA INSULIN PUMP 40 mL 5 09/14/2022 4 Insulin Glargine (LANTUS SOLOSTAR) 100 UNIT/ML injection pen Inject 30 Units under the skin into the appropriate area as directed Daily. 3 mL 1 07/05/2022 4 Insulin Lispro, 1 Unit Dial, (HUMALOG) 100 UNIT/ML solution pen-injector 1:5 carb ratio and 1:20 correction. MDD 40 Units daily. Use in the event if insulin pump malfunction 3 mL 1 07/05/2022 4 Insulin Pen Needle (BD Pen Needle Nithya U/F) 32G X 4 MM misc 1 each Daily. Use 1 each 4 times daily with Insulin pen 400 each 1 07/06/2022 4 Insulin Syringe-Needle U-100 (B-D INS SYR ULTRAFINE .5CC/30G) 30G X 1/2 0.5 ML misc 1 Use for humalog TID and for high numbers if insulin pump malfunction 100 each 5 07/06/2022 4 metFORMIN ER (GLUCOPHAGE-XR) 500 MG 24 hr tablet Take 2 tablets by mouth Daily With Breakfast. 180 tablet 3 11/06/2021 4 oxybutynin XL (DITROPAN-XL) 10 MG 24 hr tablet Take 1 tablet by mouth Daily. 12/18/2020 4 rizatriptan (MAXALT) 5 MG tabletIndications :Migraine without aura and without status migrainosus, not intractable Take 1 tablet at at onset of migraine as needed, May repeat in 2 hours if needed 9 tablet 11 07/15/2023 4 Semaglutide, 1 MG/DOSE, (Ozempic, 1 MG/DOSE,) 4 MG/3ML solution pen-injector Inject 1 mg under the skin into the appropriate area as directed 1 (One) Time Per Week. 3 mL 11 06/30/2022 3 tiZANidine (ZANAFLEX) 2 MG tabletIndications :Neck pain Take 1-2 tablets by mouth At Night As Needed for Muscle Spasms. 30 tablet 1 07/15/2023 4 traZODone (DESYREL) 50 MG tablet Take 1 tablet by mouth As Needed. 04/06/2021 4 Vraylar 1.5 MG capsule capsule 03/10/2022 4 documented as of this encounter Plan of Treatment Not on file documented as of this encounter Procedures Procedure Name Priority Date/Time Associated Diagnosis Comments XR SPINE CERVICAL 2 OR 3 VW Routine 07/15/2023 2:43 PM EST Neck pain documented in this encounter Results * XR Spine Cervical [...] MD 07/16/2023 2:04 PM EST Workstation ID: [id number] Narrative 07/16/2023 2:04 PM EST XR SPINE [...] MD 07/16/2023 2:04 PM EST Workstation ID: [id number] Ania Allison APRN IM DIAGNOSTIC IMAGING ORDERABLES Final Result documented in this encounter Visit Diagnoses Diagnosis Neck pain Cervicalgia documented in this encounter Care Teams Erector Operator Relationship Specialty Start Date End Date Yogi Abdul MD [address] [place] [address] PCP - General Family Medicine 03/06/21 documented as of this encounter
--- OUTSIDE RECORDS SUMMARY | 2024-06-26 16:04 | XMS_ITS | Clinical Summary ---
Author Organization [facility] Address [address] [place] [address] Care Team Providers Care Pharmacy Picking Tech Name Role Phone Yogi Abdul MD Primary Care Provider [phone] Allergies Active Allergy Reactions Criticality Noted Date Comments Ciprofloxacin Hives Low 01/06/2016 Sulfa Antibiotics Hives Low 01/06/2016 Medications Semaglutide, 2 MG/DOSE, (Ozempic, 2 MG/DOSE,) 8 MG/3ML solution pen-injectorIndi cations:Type 2 diabetes mellitus with hypoglycemia without coma, with long-term current use of insulin Inject 2 mg under the skin into the appropriate area as directed 1 (One) Time Per Week. 3 mL 11 4 Active Active Problems Problem Noted Date Diagnosed Date Chest pain, atypical 02/14/2024 Assessment & Plan (02/14/2024 10:54 AM EDT): She completed an echocardiogram on 02/09/2024 that showed normal LV size and function, EF 55-60%. No significant valvular stenosis or regurgitation. She underwent a nuclear stress test on 02/13/2024 that revealed no evidence of ischemia. EKG from 01/20/2024 revealed normal sinus rhythm, normal ECG. Previous episode of chest pain most likely due to muscle strain. Dizziness 02/14/2024 Assessment & Plan (02/14/2024 10:56 AM EDT): 5-day Holter monitor to rule out arrhythmias. Screening for lipid disorders 02/14/2024 Diabetic peripheral neuropat hy associated with type 2 diabetes mellitus 07/15/2023 Migraine without aura and wi thout status migrainosus, not intractable 07/15/2023 Neck pain 07/15/2023 Celiac disease 10/14/2022 Cigarette smoker 08/27/2022 Assessment & Plan (02/14/2024 10:55 AM EDT): Highly encouraged smoking cessation. She is willing to quit and will work on a plan to taper down. Insulin pump titration 03/06/2021 08/15/2018 Chronic interstitial cystitis 07/06/2018 Hyperthyroidism 05/06/2017 Depression 01/08/2016 Morbid obesity 01/06/2016 Polycystic ovaries 01/06/2016 Type 2 diabetes mellitus with hypoglycemia 01/05 Assessment & Plan (01/16/2024 5:38 PM EDT): Diabetes is controlled A1C 6.0% 01/01/2024 CGM Interpretation: Mostly stable blood sugars without significant hyperglycemia or hypoglycemia Rx: Continue Ozempic 2 mg weekly.Discussed risk for increasing blood sugars over time with stopping insulin use. Discussed restarting metformin 500 mg ER if blood sugars are increasing with stopping insulin (over 1:30 in the morning; over 152-hour postprandial). Foot exam performed today. Microalbumin ordered today. Encouraged yearly eye jbif-pc-tn-date per patient. LDL at goal. Encourage continued efforts towards weight loss. Family History Medical History Relation Name Comments Diabetes Father Hypertension Father Neuropathy Father Hypertension Maternal Grandfather Hypertension Maternal Grandmother Hypertension Mother Hyperlipidemia Other Kidney disease Other Kidney transp lanted Mental illness Other Obesity Other Diabetes Paternal Grandfather Hypertension Paternal Grandfather Diabetes Paternal Grandmother Hypertension Paternal Grandmother Relation Name Status Comments Father Maternal Grandfather Maternal Grandmother Mother Other Paternal Grandfather Paternal Grandmother Social History Tobacco Use Types Packs/Day Years [...] at Home or Work/School Not on file 10 /03/2023 Feels Threatened by Someone? Not on file [...] on file Sexual Orientation Not on file Last Filed Vital Signs Vital Sign Reading Time Taken Comments Blood Pressure 144/80 02/14/2024 9:01 AM EDT Pulse 79 02/14/2024 9:01 AM EDT Temperature 35.9 ??C (96.7 ??F) 01/05/2022 8:54 AM ED T Respiratory Rate 18 07/24/2019 1:15 PM EST Oxygen Saturation 99% 02/14/2024 9:01 AM EDT Inhaled Oxygen Concentration - - Weight 109 kg (240 lb) 02/14/2024 9:01 AM EDT Height 170.2 cm (5' 7 ) 02/14/2024 9:01 AM EDT Body Mass Index 37.59 02/14/2024 9:01 AM EDT Plan of Treatment Health Maintenance Due Date Last Done Comments Annual Gynecologic Pelvic an d Breast Exam 1988 Pneumococcal Vaccine 0-64 (1 of 2 - PCV) 1994 DIABETIC EYE EXAM 1998 Hepatitis B (1 of 3 - 19+ 3- dose series) 2007 ANNUAL PHYSICAL 04/08/2017 HEPATITIS C SCREENING 04/08/2017 PAP SMEAR 04/08/2017 INFLUENZA VACCINE 01/23/2024 06/11/2022 COVID-19 Vaccine (3 - 2023-2 5 season) 2024 01/02/2021, 12/05/2020 HEMOGLOBIN A1C 07/17/2024 01/16/2024, 06/25, 06/30/2022, Additional history exists BMI FOLLOWUP 01/15/2025 01/16/2024 DIABETIC FOOT EXAM 01/15/2025 01/16/2024, 0 01/16/2024, 01/16/2024 URINE MICROALBUMIN 01/15/2025 01/16/2024, 06/11/2022 TDAP/TD VACCINES (3 - Td or Tdap) 04/06/2029 019, 11/15/2014 Procedures Procedure Name Priority Date/Time Associated Diagnosis Comments MICROALBUMIN / CREATININE URINE RATIO Routine 01/16/2024 10:05 AM EDT Type 2 diabetes mellitus with hypoglycemia without coma, with long-term current use of insulin POCT GLYCOSYLATED HEMOGLOBIN (HGB A1C) Routine 01/16/2024 9:06 AM EDT Type 2 diabetes mellitus with hypoglycemia without coma, with long-term current use of insulin from Last 3 Months or Most Recently Relevant to Health Maintenance Results * Microalbumin / Creatinine Urine Ratio - Urine, Clean Catch (01/16/2024 10:05 AM EDT) Microalbumin/C reatinine Ratio 01/16/2024 2:46 PM EDT [facility] Comment:Unable to calculate Creatinine, Urine 214.3 mg/dL 01/16/2024 2:46 PM EDT [facility] Microalbumin, Urine <1.2 mg/dL 01/16/2024 2:46 PM T [facility] Urine Urine specimen obtained by clean catch procedure / Unknown Collection / Unknown 01/16/2024 10:05 AM EDT 01/16/2024 10:05 AM EDT Tamiko Gracia PA-C URINE ORDERABLES Final Result [facility]
[address] [place] [address], [place] [phone] * POC Glycosylated Hemoglobin (Hb A1C) (01/16/2024 9:06 AM EDT) Hemoglobin A1C 5.6 4.5 - 5.7 % [facility] Lot Number [id number] [facility] Expiration Date 10/09/25 [facility] Blood 01/16/2024 9:06 AM EDT Tamiko Gracia PA-C POINT OF CARE TEST ORDERABLES Final Result [facility]
[address] [place] [address], [place] [phone] from Last 3 Months or Most Recently Relevant to Health Maintenance Insurance Member Subscriber Plan / Payer (Ef fective 2014-Present) Name:Pat Murphy Relation to Subscriber:Spouse Name:JOSE ALFREDO MURPHY Date of :1985 (Home) Address: [address] [place] [address] Payer ID:[id number] (NAIC) Type:Not on file Address: [address] [place] [id number] Care Teams Pharmacy Picking Tech Relationship Specialty Start Date End Date Yogi Abdul MD [address] [place] [address] PCP - General Family Medicine 03/06/21
--- OUTSIDE RECORDS SUMMARY | 2024-06-26 16:04 | XMS_ITS | Encounter Summary ---
Author Organization [facility] Address [address] [place] [address] Care Team Providers Care Process Planner Name Role Phone Yogi Abdul MD Primary Care Provider [phone] Reason for Visit * Cardiac (Routine) - Closed Specialty Diagnoses / Procedures Referred By Contac t Referred To Contact Diagnoses Dizziness Procedures Holter Monitor - 72 Hour Up To 15 Days Sharon Vasquez APRN [address] [address] Phone: tel: fax: [facility] [address] [place] [address] Phone: tel: Referral ID Status Reason Start Date Expiration Date Visits Re quested Visits Authorized [id number] Closed 02/14/2024 02/13/2025 1 1 Encounter Details Date Type Department Care Team (Late st Contact Info) Description 02/14/2024 10:00 AM EDT Ancillary Procedure [facility] CARDIOLOGY [address] [place] [id number] Social History Tobacco Use Types Packs/Day Years [...] Study Description Monitor placed on patient by Bing Pitt MA on 02/14/2024 at 10:00 EDT. [...] arrhythmias. See raw data for further information. us Sharon Vasquez APRN [facility] Final Result documented in this encounter Visit Diagnoses Not on filedocumented in this encounter Care Teams Process Planner Relationship Specialty Start Date End Date Yogi Abdul MD [address] [place] [address] PCP - General Family Medicine 03/06/21 documented as of this encounter
--- OUTSIDE RECORDS SUMMARY | 2024-06-26 16:05 | XMS_ITS | Encounter Summary ---
Author Organization [facility] Address [address] [place] [address] Care Team Providers Care Appeals Nurse Name Role Phone Yogi Abdul MD Primary Care Provider [phone] Reason for Visit * Reason Comments Med Refill Encounter Details Date Type Department Care Team ([facility] st Contact Info) Description 06/21/2022 Refill [facility] ENDOCRINOLOGY [address] [place] [id number] Martha Grajeda MD [address] [place] [address] Social History Tobacco Use Types Packs/Day Years [...] on filedocumented in this encounter Care Teams Appeals Nurse Relationship Specialty Start Date End Date Yogi Abdul MD [address] [place] [address] PCP - General Family Medicine 03/06/21 documented as of this encounter
--- OUTSIDE RECORDS SUMMARY | 2024-06-26 16:05 | XMS_ITS | Encounter Summary ---
Author Organization [facility] Address [address] [place] [address] Care Team Providers Care Drink Mixer Name Role Phone Yogi Abdul MD Primary Care Provider [phone] Reason for Referral * Diagnostic Imaging (Routine) - Closed Specialty Diagnoses / Procedures Referred By Contac t Referred To Contact Diagnoses Pain in both feet Numbness in feet Procedures EMG & Nerve Conduction Test Rosemarie Patricia APRN [address] [place] [address] Phone: tel: fax: [address] [address] Phone: tel: Referral ID Status Reason Start Date Expiration Date Visits Re quested Visits Authorized [id number] Closed 09/28/2021 09/28/2022 1 1 Reason for Visit * Diagnostic Imaging (Routine) - Closed Specialty Diagnoses / Procedures Referred By Contac t Referred To Contact Diagnoses Pain in both feet Numbness in feet Procedures EMG & Nerve Conduction Test Rosemarie Patricia APRN [address] [place] [address] Phone: tel: fax: [address] [phone] Phone: tel: Referral ID Status Reason Start Date Expiration Date Visits Re quested Visits Authorized [id number] Closed 09/28/2021 09/28/2022 1 1 Encounter Details Date Type Department Care Team (Latest Contact Info) Description 11/12/2021 10:15 AM EDT - 11/12/2021 11:59 PM EDT Hospital Encounter [facility] NEUROLOGY DIAGNOSTICS [address] [place] [id number] Rosemarie Patricia APRN [address] [place] [address] Pain in both feet; Numbness in feet Discharge Disposition: Home or Self Care Social [...] this encounter Medications at Time of Discharge busPIRone (BUSPAR) 15 MG tablet Take 1 tablet by mouth 3 (Three) Times a Day. 05/14/2020 4 cetirizine (zyrTEC) 10 MG tablet Take 1 tablet by mouth Daily. 07/09/2019 4 Continuous Blood Gluc Sensor (Dexcom G6 Sensor) USE DIRECTED 3 each 7 01/27/2021 4 Continuous Blood Gluc Sensor (Dexcom G6 Sensor) 1 each Take As Directed. 3 each 11 01/24/2021 2 Continuous Blood Gluc Transmit (Dexcom G6 Transmitter) misc USE DIRECTED 1 each 1 01/27/2021 2 escitalopram (LEXAPRO) 20 MG tablet Take 1 tablet by mouth Daily. 05/14/2020 4 fluticasone (FLONASE) 50 MCG/ACT nasal spray 1 spray into the nostril(s) as directed by provider Daily. 07/09/2019 4 HumaLOG 100 UNIT/ML injection USE up to 105 UNITS VIA INSULIN PUMP DAILY 40 mL 3 09/17/2021 2 Insulin Pen Needle (Pen [place]) 32G X 4 MM misc 1 each Daily. Use 1 each 4 times daily with Insulin pen 200 each 3 04/17/2020 2 metFORMIN ER (GLUCOPHAGE-XR) 500 MG 24 hr tablet Take 2 tablets by mouth Daily With Breakfast. 180 tablet 3 11/06/2021 4 oxybutynin XL (DITROPAN-XL) 10 MG 24 hr tablet Take 1 tablet by mouth Daily. 12/18/2020 4 Semaglutide,0.25 or 0.5MG/DOS, (Ozempic, 0.25 or 0.5 MG/DOSE,) 2 MG/1.5ML solution pen-injector Inject 0.25 mg under the skin into the appropriate area as directed 1 (One) Time Per Week. 0.25 mg once a week, then increase to 0.5 mg once a week. 1.5 mL 6 09/17/2021 2 traZODone (DESYREL) 50 MG tablet Take 1 tablet by mouth As Needed. 04/06/2021 4 documented as of this encounter Progress Notes * Ania Allison APRN - 11/12/2021 10:15 AM EDT Please notify the patient that the nerve and muscle study she had completed on her legs and feet does show mild neuropathy. She should follow-up as scheduled in clinic with Rosemarie Patricia APRN.Thanks, Ania Allison APRN. documented in this encounter Plan of Treatment Not on file documented as of this encounter Procedures Procedure Name Priority Date/Time Associated Diagnosis Comments EMG 37601 (X1) & NCS 9-10 (29292) Routine 11/12/2021 10:50 AM EDT Pain in both feet Numbness in feet documented in this encounter Results * EMG 95243 (X1) & NCS 9-10 (50735) (11/12/2021 10:50 AM EDT) Impressions NEUROLOGY - 11/12/2021 11:08 AM EDT Peripheral neuropathy, axonal, mild No electrophysiologic evidence for radiculopathy is seen in the right leg This report is transcribed using the [employer] dictation system. Narrative NEUROLOGY - 11/12/2021 11:08 AM EDT Indication: Bilateral foot numbness, peripheral neuropathy Clinical: 31 y.o.female with a history of diabetes and slowly worsening numbness and pain in her feet, more so on the right. ??She is also had back pain with occasional sciatica into her right leg. ??On examination patient has overall intact sensation to vibration, pinprick and temperature. ??Lumbar radiculopathy and peripheral neuropathy are considerations. ? NCS/EMG TECHNICAL DATA: All studies are performed at a skin temperature of 34??C or greater. Distal sensory latencies are calculated to waveform peak. ??Sensory amplitudes are measured peak to peak Distal motor latencies are calculated to waveform onset. ??Motor amplitudes are calculated baseline to peak Nerve Conduction Studies Anti Sensory Summary Table Stim Site NR Peak (ms) Norm Peak (ms) P-T Amp (??V) Norm P-T Amp Site1 Site2 Delta-P (ms) Dist (cm) Juan Diego (m/s) Norm Juan Diego (m/s) Right Sural Anti Sensory (Lat Mall) Calf ?3.7 <4.0 12.9 >5.0 Calf Lat Mall 3.7 14.0 38 ?? Motor Summary Table Stim Site NR Onset (ms) Norm Onset (ms) O-P Amp (mV) Norm O-P Amp Site1 Site2 Delta-0 (ms) Dist (cm) Juan Diego (m/s) Norm Juan Diego (m/s) Right Fibular Motor (Ext Dig Brev) Ankle ?3.2 <6.1 5.0 >2.5 B Fib Ankle 6.6 34.0 52 >40 B Fib ?9.8 ??4.6 ??Poplt B Fib 1.5 10.0 67 >40 Poplt ?11.3 ??4.4 ? Right Tibial Motor (Abd Nix Brev) Ankle ?3.4 <6.1 10.8 >3.0 Knee Ankle 9.1 43.0 47 >40 Knee ?12.5 ??6.7 ? Mixed Summary Table Stim Site NR Peak (ms) Norm Peak (ms) P-T Amp (??V) Norm P-T Amp Site1 Site2 Delta-P (ms) Dist (cm) Juan Diego (m/s) Norm Juan Diego (m/s) Left Lateral Plantar Mixed (Med Malleolus) Lateral Foot ?6.6 <3.7 16.5 >8 Lateral Foot Med Malleolus 6.6 14.0 21 ?? Right Lateral Plantar Mixed (Med Malleolus) Lateral Foot ?5.9 <3.7 17.7 >8 Lateral Foot Med Malleolus 5.9 14.0 24 ?? Left Medial Plantar Mixed (Med Malleolus) Medial Foot ?7.2 <3.7 8.1 >10 Medial Foot Med Malleolus 7.2 14.0 19 ?? Right Medial Plantar Mixed (Med Malleolus) Medial Foot ?5.3 <3.7 10.9 >10 Medial Foot Med Malleolus 5.3 14.0 26 ?? F Wave Studies NR F-Lat (ms) Lat Norm (ms) L-R F-Lat (ms) L-R Lat Norm M-Lat (ms) FLat-MLat (ms) Right Fibular (Mrkrs) (EDB) ?? 52.03 <60 ??<5.1 3.33 48.70 Right Tibial (Mrkrs) (Abd Hallucis) ?? 48.93 <61 ??<5.7 3.33 45.60 H Reflex Studies NR H-Lat (ms) L-R H-Lat (ms) L-R Lat Norm M-Lat (ms) HLat-MLat (ms) Left Tibial (Mrkrs) (Gastroc) ?? 35.24 0.86 <2.0 4.67 30.57 Right Tibial (Mrkrs) (Gastroc) ?? 36.10 0.86 <2.0 4.67 31.43 EMG Side Muscle Nerve Root Ins Act Fibs Psw Amp Dur Poly Recrt Int Pat Comment Right Ext Dig Brev Dp Br Fibular L5, S1 Nml Nml Nml Nml Nml 2+ Nml Nml ?? Right AntTibialis Dp Br Fibular L4-5 Nml Nml Nml Nml Nml 0 Nml Nml ?? Right Fibularis Long Sup Br Fibular L5-S1 Nml Nml Nml Nml Nml 0 Nml Nml ?? Right PostTibialis Tibial L5, S1 Nml Nml Nml Nml Nml 0 Nml Nml ?? Right Gastroc Tibial S1-2 Nml Nml Nml Nml Nml 0 Nml Nml ?? Right VastusLat Femoral L2-4 Nml Nml Nml Nml Nml 0 Nml Nml ?? Right L4 Parasp Rami L4 Nml Nml Nml Nml Nml 0 Nml Nml ?? Right L5 Parasp Rami L5 Nml Nml Nml Nml Nml 0 Nml Nml ?? Right S1 Parasp Rami S1 Nml Nml Nml Nml Nml 0 Nml Nml ?? Waveforms: ? FINDINGS: Nerve Conduction Studies: Sural sensory latency on the right is normal Study the right peroneal motor and right posterior tibial motor nerves are normal Latencies of the right and left lateral and medial plantar nerves are all moderately prolonged and amplitude is reduced in the right and left medial plantar nerves Motor F wave latencies of the right peroneal and posterior tibial motor nerves are normal H-reflexes are present and symmetric bilaterally Electromyogram: Needle examination of multiple muscles in the right leg and lumbar paraspinous muscles are normal us Rosemarie Patricia DIRECTOR [employer] [facility] ORDERABLES Final Result NEUROLOGY documented in this encounter Visit Diagnoses Diagnosis Pain in both feet Numbness in feet documented in this encounter Care Teams Drink Mixer Relationship Specialty Start Date End Date Yogi Abdul MD [address] [place] [address] PCP - General Family Medicine 03/06/21 documented as of this encounter
--- OUTSIDE RECORDS SUMMARY | 2024-06-26 16:05 | XMS_ITS | Encounter Summary ---
Author Organization [facility] Address [address] [place] [address] Care Team Providers Care Java Web Application Developer Name Role Phone Yogi Abdul MD Primary Care Provider [phone] Encounter Details Date Type Department Care Team (Late st Contact Info) Description 02/09/2022 Telephone [facility] ENDOCRINOLOGY [address] [place] [address] Martha Grajeda MD [address] [place], [place] [id number] Social History Tobacco Use Types Packs/Day Years [...] encounter Miscellaneous Notes * Telephone Encounter - Janessa Davenport MA - 02/10/2022 6:44 AM EDT Noted * Telephone Encounter - Martha Grajeda MD - 02/09/2022 7:33 PM EDT I have talked to the patient and gave her instructions on the use of temporary basal and correctionwhile on steroids. * Telephone Encounter - Janessa Davenport MA - 02/09/2022 4:31 PM EDT Please see message * Telephone Encounter - Martha Grajeda MD - 02/09/2022 4:05 PM EDT Enter the info in the pump and it would suggest depending on the time of the day. She has differentsettings I believe at different time of the day * Telephone Encounter - Janessa Davenport MA - 02/09/2022 2:58 PM EDT Pt would like to Know HOW much/Units she administer correction boluses every 4 hours * Telephone Encounter - Sherine Stewart - 02/09/2022 2:45 PM EDT PT RETURNED OUR CALL PLEASE CALL [phone] * Telephone Encounter - Janessa Davenport MA - 02/09/2022 2:30 PM EDT Attempted contact LMOM asking pt to return my call * Telephone Encounter - Martha Grajeda MD - 02/09/2022 1:15 PM EDT I have reviewed her sensor data. High glucose is likely related to the steroids and sugars will improve after steroids are stopped. For now I would recommend administer correction boluses every 4 hours. She could also increase the basal rate by 20-30% using temporary basal option. * Telephone Encounter - Janessa Davenport MA - 02/09/2022 9:25 AM EDT Returned pt call. She stated that she just started the Steroid yesterday, so her BS will go up evenfurther that that. She does not upload her pump, but I was able to print off her Dexcom. She does not feel the Ozempic is working Please advise on any adjustment to her pump * Telephone Encounter - Grecia Love RegSched Rep - 02/09/2022 8:30 AM EDT Pt called states she has been having high blood sugar ranging anywhere for 240 to 250 been going onfor 2 to 3 weeks. Pt was diagnosis with strep throat on Tuesday02/07/22 pt was given antibiotic andsteroids. Pt seems to think Ozempic is no longer working for he not responding. Pt last seen 11/06/21 pt next f/u 03/24/22 documented in this encounter Plan of Treatment Not on file documented as of this encounter Visit Diagnoses Not on filedocumented in this encounter Care Teams Java Web Application Developer Relationship Specialty Start Date End Date Yogi Abdul MD [address] [place] [id number] PCP - General Family Medicine 03/06/21 documented as of this encounter
--- OUTSIDE RECORDS SUMMARY | 2024-06-26 16:05 | XMS_ITS | Encounter Summary ---
Author Organization [facility] Address [address] [place] [address] Care Team Providers Care Grad Intern Name Role Phone Yogi Abdul MD Primary Care Provider [phone] Reason for Visit * Reason Onset Date Comments Med Refill 05/19/2022 Encounter Details Date Type Department Care Team (Late st Contact Info) Description 05/19/2022 Refill [facility] ENDOCRINOLOGY [address] [place] [id number] Martha Grajeda MD [address] [place] [address] Social History Tobacco Use Types Packs/Day Years [...] on filedocumented in this encounter Care Teams Grad Intern Relationship Specialty Start Date End Date Yogi Abdul MD [address] [place] [address] PCP - General Family Medicine 03/06/21 documented as of this encounter
--- OUTSIDE RECORDS SUMMARY | 2024-06-26 16:05 | XMS_ITS | Encounter Summary ---
[facility] Organization [facility] Address [address] [place] [address] Care Team Providers Care Tinning Machine Set Up Operator Name Role Phone Yogi Abdul MD Primary Care Provider [phone] Encounter Details Date Type Department Care Team (Late st Contact Info) Description 02/09/2022 Telephone [facility] END[facility] [address] [place] [address] Martha Leary MD [address] [place], [place] [id number] Social History Tobacco Use Types Packs/Day Years [...] Please see message * Telephone Encounter - Ania Cardenas RegSched Rep - 02/09/2022 4:13 PM EDT PT CALLED AND HAS QUESTIONS ABOUT HER INSULIN PUMP SETTINGS. SHE STATED THAT DR. LEARY TOLD HER TOMAKE SOME TEMP CHANGES TO HER SETTINGS, BUT WHEN SHE MAKES THE CHANGES, IT IS REQUESTING MORE INFORMATION THAT SHE IS UNSURE OF. PLEASE CALL HER AT [phone] LAST OV 11/06/21 F/U 03/24/22 documented in this encounter Plan of Treatment Not on file documented as of this encounter Visit Diagnoses Not on filedocumented in this encounter Care Teams Tinning Machine Set Up Operator Relationship Specialty Start Date End Date Yogi Abdul MD [address] [place] [address] PCP - General Family Medicine 03/06/21 documented as of this encounter
--- OUTSIDE RECORDS SUMMARY | 2024-06-26 16:05 | XMS_ITS | Encounter Summary ---
Author Organization [facility] Address [address] [place] [address] Care Team Providers Care Pharmacy Tech Name Role Phone Yogi Abdul MD Primary Care Provider [phone] Reason for Visit * Reason Comments Diabetes Hyperthyroidism Follow Up: Has been on antibiotic due to ear infection, and it has effected her blood sugars. Has not been able to take Ozempic due to shortage Encounter Details Date Type Department Care Team (Late st Contact Info) Description 06/30/2022 9:30 AM EST Office Visit [facility] END[facility]CRINOLOGY [address] [place] [address] Martha Grajeda MD [address] [place] [address] Type 2 diabetes mellitus with hyperglycemia, without long-term current use of insulin (Primary Dx); Insulin pump titration; Hyperthyroidism; Class 3 severe obesity due to excess calories with serious comorbidity and body mass index (BMI) of 40.0 to 44.9 in adult Social History Tobacco Use Types Packs/Day Years [...] Sign Reading Time Taken Comments Blood Pressure 110/64 06/30/2022 9:22 AM EST Pulse 70 06/30/2022 9:22 AM EST Temperature - - Respiratory Rate - - Oxygen Saturation 98% 06/30/2022 9:22 AM EST Inhaled Oxygen Concentration - - Weight 133 kg (292 lb 3.2 oz) 06/30/2022 9:22 AM EST Height 172.7 cm (5' 8 ) 06/30/2022 9:22 AM EST Body Mass Index 44.43 06/30/2022 9:22 AM EST documented in this encounter Progress Notes * Martha Grajeda MD - 06/30/2022 9:30 AM EST Chief complaint Diabetes and Hyperthyroidism (Follow Up: Has been on antibiotic due to ear infection, and it has effected her blood sugars. Has not been able to take Ozempic due to shortage ) Subjective Pat Murphy is a 32 y.o. female is here today for follow-up. Diabetes mellitus type 2 diagnosed 09/15/15. Meds: Insulin via T-slim pump Monitoring - Dexcom and glucose data was reviewed and analyzed. Glucose is 98% at goal. No hypoglycemia Metformin and Ozempic continued. She feels well on the medications, couldn't receive Ozempic due toshortage in the last 3 weeks. . March 2017 she was diagnosed with hyperthyroidism TSH was < 0.004 and free T4 of 1.63. TSI antibodies were positive at 486. She underwent thyroid uptake and scan 04/29/2017 which showed normal thyroid uptake of 36%. Heterogenous uptake in the right inferior thyroid, otherwise normal thyroid scan She took a short course of PTU and TFT are stable since then Patient has ear infection and takes antibiotics. She has stopped smoking . Glucose is higher. She has started evaluation with the bariatric surgery [place] in [place]. Medications Current Outpatient Medications: ??? amoxicillin (AMOXIL) 875 MG tablet, Take 875 mg by mouth 2 (Two) Times a Day., Disp: , Rfl: ??? buPROPion SR (WELLBUTRIN SR) 150 MG 12 hr tablet, TAKE 1 TABLET BY MOUTH ONCE DAILY FOR 7 DAYS,THEN TAKE 1 TABLET TWICE DAILY THEREAFTER, Disp: , Rfl: ??? busPIRone (BUSPAR) 15 MG tablet, Take 15 mg by mouth 3 (Three) Times a Day., Disp: , Rfl: ??? cetirizine (zyrTEC) 10 MG tablet, Take 10 mg by mouth Daily., Disp: , Rfl: ??? Continuous Blood Gluc Sensor (Dexcom G6 Sensor), USE DIRECTED, Disp: 3 each, Rfl: 7 ??? Continuous Blood Gluc Sensor (Dexcom G6 Sensor), 1 each Take As Directed., Disp: 3 each, Rfl: 11 ??? Continuous Blood Gluc Transmit (Dexcom G6 Transmitter) misc, USE DIRECTED, Disp: 1 each, Rfl: 3 ??? escitalopram (LEXAPRO) 20 MG tablet, Take 20 mg by mouth Daily., Disp: , Rfl: ??? fluticasone (FLONASE) 50 MCG/ACT nasal spray, 1 spray into the nostril(s) as directed by provider Daily., Disp: , Rfl: ??? gabapentin (NEURONTIN) 100 MG capsule, Take 1 capsule by mouth 3 (Three) Times a Day., Disp: 90capsule, Rfl: 5 ??? HumaLOG 100 UNIT/ML injection, INJECT UP TO 105 UNITS VIA INSULIN PUMP DAILY, Disp: 40 mL, Rfl:2 ??? Insulin Pen Needle (Pen [place]) 32G X 4 MM misc, 1 each Daily. Use 1 each 4 times daily with Insulin pen, Disp: 200 each, Rfl: 3 ??? metFORMIN ER (GLUCOPHAGE-XR) 500 MG 24 hr tablet, Take 2 tablets by mouth Daily With Breakfast., Disp: 180 tablet, Rfl: 3 ??? oxybutynin XL (DITROPAN-XL) 10 MG 24 hr tablet, Take 10 mg by mouth Daily., Disp: , Rfl: ??? traZODone (DESYREL) 50 MG tablet, Take 50 mg by mouth As Needed., Disp: , Rfl: ??? Vraylar 1.5 MG capsule capsule, , Disp: , Rfl: ??? Semaglutide, 1 MG/DOSE, (Ozempic, 1 MG/DOSE,) 4 MG/3ML solution pen- injector, Inject 1 mg underthe skin into the appropriate area as directed 1 (One) Time Per Week., Disp: 3 mL, Rfl: 11 Review of systems Review of Systems Constitutional: Positive for fatigue. All other systems reviewed and are negative. Physical exam Objective Blood pressure 110/64, pulse 70, height 172.7 cm (68 ), weight 133 kg (292 lb 3.2 oz), SpO2 98 %, not currently . Body mass index is 44.43 kg/m??. Physical Exam Constitutional: She is oriented [...] content normal. Vitals reviewed. LABS AND IMAGING Office Visit on 06/30/2022 Component Date Value Ref Range Status ??? Hemoglobin A1C 06/30/2022 6.3 % Final ??? Lot Number 06/30/2022 [id number] Final ??? Expiration Date 06/30/2022 [id number] Final ??? Glucose 06/30/2022 169 (A) 70 - 130 mg/dL Final ??? Lot Number 06/30/2022 [id number] Final ??? Expiration Date 06/30/2022 12/25/2022 Final Orders Only on 06/11/2022 Component Date Value Ref Range Status ??? Creatinine, Urine 06/11/2022 31.0 Not Estab. mg/dL Final ? ? Microalbumin, Urine 06/11/2022 <3.0 Not Estab. ug/mL Final Verified by repeat analysis ? ? Microalbumin/Creatinine Ratio 06/11/2022 <10 0 - 29 mg/g creat Final Comment: Normal: 0 - 29 Moderately increased: 30 - 300 Severely increased: >300 Clinical Support on 06/11/2022 Component Date Value Ref Range Status ??? TSH 06/11/2022 1.570 0.450 - 4.500 uIU/mL Final ??? Free T4 06/11/2022 1.09 0.82 - 1.77 ng/dL Final ??? Total Cholesterol 06/11/2022 147 100 - 199 mg/dL Final ??? Triglycerides 06/11/2022 150 (H) 0 - 149 mg/dL Final ? ? HDL Cholesterol 06/11/2022 28 (L) >39 mg/dL Final ??? VLDL Cholesterol Jose 06/11/2022 27 5 - 40 mg/dL Final ??? LDL Chol Calc (NIH) 06/11/2022 92 0 - 99 mg/dL Final ??? Glucose 06/11/2022 179 (H) 70 - 99 mg/dL Final ??? BUN 06/11/2022 9 6 - 20 mg/dL Final ??? Creatinine 06/11/2022 0.76 0.57 - 1.00 mg/dL Final ? ? EGFR Result 06/11/2022 105 >59 mL/min/1.73 Final ??? BUN/Creatinine Ratio 06/11/2022 12 9 - 23 Final ??? Sodium 06/11/2022 137 134 - 144 mmol/L Final ??? Potassium 06/11/2022 4.3 3.5 - 5.2 mmol/L Final ??? Chloride 06/11/2022 103 96 - 106 mmol/L Final ??? Total CO2 06/11/2022 22 20 - 29 mmol/L Final ??? Calcium 06/11/2022 9.1 8.7 - 10.2 mg/dL Final ??? Total Protein 06/11/2022 6.7 6.0 - 8.5 g/dL Final ??? Albumin 06/11/2022 4.3 3.8 - 4.8 g/dL Final ??? Globulin 06/11/2022 2.4 1.5 - 4.5 g/dL Final ??? A/G Ratio 06/11/2022 1.8 1.2 - 2.2 Final ??? Total Bilirubin 06/11/2022 0.3 0.0 - 1.2 mg/dL Final ??? Alkaline Phosphatase 06/11/2022 96 44 - 121 IU/L Final ??? AST (SGOT) 06/11/2022 23 0 - 40 IU/L Final ??? ALT (SGPT) 06/11/2022 26 0 - 32 IU/L Final Assessment Assessment & Plan Problems Addressed this Visit Other Diabetes mellitus (HCC) - Primary Relevant Medications Semaglutide, 1 MG/DOSE, (Ozempic, 1 MG/DOSE,) 4 MG/3ML solution pen-injector Hyperthyroidism Insulin pump titration Other Visit Diagnoses Class 3 severe obesity due to excess calories with serious comorbidity and body mass index (BMI) of40.0 to 44.9 in adult ([facility]) Diagnoses Codes Comments Type 2 diabetes mellitus with hyperglycemia, without long-term current use of insulin ([facility]) - Primary ICD-10-CM: E11.65 ICD-9-CM: 250.00, 790.29 Insulin pump titration ICD-10-CM: Z46.81 ICD-9-CM: V53.91 Hyperthyroidism ICD-10-CM: E05.90 ICD-9-CM: 242.90 Class 3 severe obesity due to excess calories with serious comorbidity and body mass index (BMI) of40.0 to 44.9 in adult ([facility]) ICD-10-CM: E66.01, Z68.41 ICD-9-CM: 278.01, V85.41 Plan Continue insulin via T-slim insulin pump. Dexcom and insulin pump data analyzed. Patient has glucose in range most of the time with the exception of a last few days. Metformin and ozempic are helpful with managing glucose. No side effects Ozempic is not available in the pharmacy and we provided a sample. Recent labs reviewed. Smoking cessation is effective - she uses Wellbutrin for cravings, doing well. I agree that bariatric surgery will be helpful and most likely will allow to come off the insulin. I will titrate up the dose of Ozempic to help with weight loss preoperatively. Follow-up in 3 months documented in this encounter Plan of Treatment Not on file documented as of this encounter Procedures Procedure Name Priority Date/Time Associated Diagnosis Comments POCT GLUCOSE, BLD (NON STRIP) Routine 06/30/2022 9:29 AM EST Type 2 diabetes mellitus with hyperglycemia, without long-term current use of insulin Insulin pump titration POCT GLYCOSYLATED HEMOGLOBIN (HGB A1C) Routine 06/30/2022 9:29 AM EST Type 2 diabetes mellitus with hyperglycemia, without long-term current use of insulin Insulin pump titration documented in this encounter Results * (ABNORMAL) POC Glucose, Blood (06/30/2022 9:29 AM EST) Glucose 169(A) 70 - 130 mg/dL Lot Number [id number] Expiration Date 12/25/2022 Blood 06/30/2022 9:29 AM EST Martha Naik MD POINT OF CARE TEST ORDERABLES Final Result * POC Glycosylated Hemoglobin (Hb A1C) (06/30/2022 9:29 AM EST) Hemoglobin A1C 6.3 % [facility] Lot Number [id number] [facility] Expiration Date [facility] Blood 06/30/2022 9:29 AM EST Martha Naik MD POINT OF CARE TEST ORDERABLES Final Result [facility]
[address] [place] [address], documented in this encounter Visit Diagnoses Diagnosis Type 2 diabetes mellitus with hyperglycemia, without long-term current use of insulin- Primary Insulin pump titration Fitting and adjustment of insulin pump Hyperthyroidism Thyrotoxicosis without mention of goiter or other cause, without mention of thyrotoxic crisis or storm Class 3 severe obesity due to excess calories with serious comorbidity and body mass index (BMI) of 40.0 to 44.9 in adult documented in this encounter Care Teams Pharmacy Tech Relationship Specialty Start Date End Date Yogi Abdul MD [address] [place] [address] PCP - General Family Medicine 03/06/21 documented as of this encounter
--- OUTSIDE RECORDS SUMMARY | 2024-06-26 16:05 | XMS_ITS | Encounter Summary ---
Author Organization [facility] Address [address] [place] [address] Care Team Providers Care Paper Conservator Name Role Phone Yogi Abdul MD Primary Care Provider [phone] Reason for Referral * Diagnostic Imaging (Routine) - Closed Specialty Diagnoses / Procedures Referred By Contac t Referred To Contact Radiology Diagnoses Chronic midline low back pain with right-sided sciatica Numbness in feet Procedures MRI Lumbar Spine Without Contrast Rosemarie Patricia APRN [address] [place] [address] Phone: tel: fax: [place] [phone] Phone: tel: Referral ID Status Reason Start Date Expiration Date Visits Re quested Visits Authorized [id number] Closed 09/28/2021 11/06/2021 1 1 Reason for Visit * Diagnostic Imaging (Routine) - Closed Specialty Diagnoses / Procedures Referred By Contac t Referred To Contact Radiology Diagnoses Chronic midline low back pain with right-sided sciatica Numbness in feet Procedures MRI Lumbar Spine Without Contrast Rosemarie Patricia APRN [address] [place] [address] Phone: tel: fax: [address] [address] Phone: tel: Referral ID Status Reason Start Date Expiration Date Visits Re quested Visits Authorized [id number] Closed 09/28/2021 11/06/2021 1 1 Encounter Details Date Type Department Care Team (Latest Contact Info) Description 10/29/2021 6:28 PM EDT - 10/29/2021 11:59 PM EDT Hospital Encounter [facility] [place] [address] Chronic midline low back pain with right-sided sciatica; Numbness in feet Discharge Disposition: Home or [...] 3 09/17/2021 2 Insulin Pen Needle (Pen [place]) 32G X 4 MM misc 1 each Daily. Use 1 each 4 times daily with Insulin pen 200 each 3 04/17/2020 2 metFORMIN ER (GLUCOPHAGE-XR) 500 MG 24 hr tablet Take 2 tablets by mouth Daily With Breakfast. 60 tablet 11 03/06/2021 2 oxybutynin XL (DITROPAN-XL) 10 MG 24 hr [...] 04/06/2021 4 Vraylar 1.5 MG capsule capsule Take 1.5 mg by mouth Daily. 05/14/2020 2 documented as of this encounter Progress Notes * Ania Allison, BLANCA - 10/29/2021 7:15 PM EDT Please notify Pat that the MRI of her lumbar spine which is the lower part of her back does show some very mild disc changes. There is also a note made by the radiologist that there is some slight bone marrow signal changes in the very lower part of her spine at the level of L5-S1. The radiologist feels that this is most likely related to the mild arthritis and disc changes seen. If she is having any severe pain or signs and symptoms of infection he does recommend a follow-up MRI with contrast to further evaluate this area-further imaging is only recommended if her symptoms were not improving or she had worsening symptoms. It does appear that she has a nerve and muscle study coming up on . She is also scheduled to follow-up with Rosemarie Patricia APRN on 12/11/2021. She can discuss these findings again at her follow-up. If she has not yet completed physical therapy I would certainly recommend a referral to help with her low back pain. Let me know if she would like this referral to try before she comes back for follow-up. Thanks, Ania Allison APRN. Fax copy to PCP documented in this encounter Plan of Treatment Not on file documented as of this encounter Procedures Procedure Name Priority Date/Time Associated Diagnosis Comments MRI LUMBAR SPINE WO CONTRAST Routine 10/29/2021 7:24 PM EDT Chronic midline low back pain with right-sided sciatica Numbness in feet documented in this encounter Results * MRI Lumbar Spine Without Contrast (10/29/2021 7:24 PM EDT) Anatomical Region Laterality Modality Spine, L-spine N/A Magnetic Resonan ce 10/30/2021 9:36 AM EDT Impressions 10/30/2021 9:52 AM EDT 1. ??There are some marrow signal changes about the endplates at L5-S1 that could be degenerative in nature and are thought less likely reflective of a osteomyelitis. There are no definite inflammatory changes around this area. Depending on clinical findings, follow-up imaging with contrast could be obtained of this level in reassessment. 2. ??There is evidence for some underlying degenerative change in the lower lumbar spine. This report was finalized on 10/30/2021 9:52 AM by Sergio Arnold MD. Narrative 10/30/2021 9:52 AM EDT DATE OF EXAM: 10/29/2021 7:00 PM PROCEDURE: MRI LUMBAR SPINE WO CONTRAST- INDICATIONS: low back pain with right side sciatica; M54.41-Lumbago with sciatica, right side; G89.29-Other chronic pain; R20.0-Anesthesia of skin COMPARISON: No comparisons available. TECHNIQUE: Routine magnetic resonance imaging of the lumbar spine was performed without the administration of contrast. FINDINGS: There are marrow signal changes involving the inferior endplate of L5 suggesting Modic type I change. There additionally are some suggested marrow signal changes involving the superior endplate of S1 that could be on a degenerative basis. The conus is around the T12-L1 level. T12-L1: No definite disc herniation or intervertebral foraminal stenosis. L1-L2: No definite disc herniation or intervertebral foraminal stenosis. L2-L3: No definite disc herniation or intervertebral foraminal stenosis. L3-L4: No definite disc herniation or intervertebral foraminal stenosis. L4-L5: There is some minimal bulging of the annulus. The intervertebral foramina appear patent. L5-S1: There is a slight retrolisthesis of L5 on S1. There is some bulging of the annulus. The intervertebral foramina appear patent. Procedure Note Sergio Arnold MD - 10/30/2021 DATE OF EXAM: 10/29/2021 7:00 PM PROCEDURE: MRI LUMBAR SPINE WO CONTRAST- INDICATIONS: low back pain with right side sciatica; M54.41-Lumbago with sciatica, right side; G89.29-Other chronic pain; R20.0-Anesthesia of skin COMPARISON: No comparisons available. TECHNIQUE: Routine magnetic resonance imaging of the lumbar spine was performed without the administration of contrast. FINDINGS: There are marrow signal changes involving the inferior endplate of L5 suggesting Modic type I change. There additionally are some suggested marrow signal changes involving the superior endplate of S1 that could be on a degenerative basis. The conus is around the T12-L1 level. T12-L1: No definite disc herniation or intervertebral foraminal stenosis. L1-L2: No definite disc herniation or intervertebral foraminal stenosis. L2-L3: No definite disc herniation or intervertebral foraminal stenosis. L3-L4: No definite disc herniation or intervertebral foraminal stenosis. L4-L5: There is some minimal bulging of the annulus. The intervertebral foramina appear patent. L5-S1: There is a slight retrolisthesis of L5 on S1. There is some bulging of the annulus. The intervertebral foramina appear patent. IMPRESSION: 1. There are some marrow signal changes about the endplates at L5-S1 that could be degenerative in nature and are thought less likely reflective of a osteomyelitis. There are no definite inflammatory changes around this area. Depending on clinical findings, follow-up imaging with contrast could be obtained of this level in reassessment. 2. There is evidence for some underlying degenerative change in the lower lumbar spine. This report was finalized on 10/30/2021 9:52 AM by Sergio Arnold MD. Rosemarie Patricia APRN IMG MRI ORDERABLES Fi nal Result documented in this encounter Visit Diagnoses Diagnosis Chronic midline low back pain with right-sided sciatica Numbness in feet documented in this encounter Care Teams Paper Conservator Relationship Specialty Start Date End Date Yogi Abdul MD [address] [place] [id number] PCP - General Family Medicine 03/06/21 documented as of this encounter
--- OUTSIDE RECORDS SUMMARY | 2024-06-26 16:05 | XMS_ITS | Encounter Summary ---
[facility] Address [address] [place] [address] Care Team Providers Care Fish Technologist Name Role Phone Yogi Abdul MD Primary Care Provider [phone] Encounter Details Date Type Department Care Team (Late st Contact Info) Description 11/16/2021 Telephone [facility] NEUROLOG[facility] [address] [phone] Rosemarie Patricia, TELEGRAPH LINEMAN [address] [place] [address] Social History Tobacco Use Types Packs/Day Years [...] encounter Miscellaneous Notes * Telephone Encounter - Francoise Graham MA - 11/16/2021 2:49 PM EDT Patient informed of results message * Telephone Encounter - Francoise Graham MA - 11/16/2021 2:48 PM EDT ----- Message from Ania Allison APRN sent at 11/12/2021 4:41 PM EDT ----- Please notify the patient that the nerve and muscle study she had completed on her legs and feet does show mild neuropathy. She should follow-up as scheduled in clinic with Rosemarie Patricia APRN.Thanks, Ania Allison APRN. documented in this encounter Plan of Treatment Not on file documented as of this encounter Visit Diagnoses Not on filedocumented in this encounter Care Teams Fish Technologist Relationship Specialty Start Date End Date Yogi Abdul MD [address] [id number] PCP - General Family Medicine 03/06/21 documented as of this encounter
--- OUTSIDE RECORDS SUMMARY | 2024-06-26 16:05 | XMS_ITS | Encounter Summary ---
Author Organization [facility] Address [address] [place] [address] Care Team Providers Care Bridge Toll Collector Name Role Phone Yogi Abdul MD Primary Care Provider [phone] Reason for Visit * Reason Comments Med Refill Encounter Details Date Type Department Care Team ([facility] st Contact Info) Description 08/18/2022 Refill [facility] END[facility] [address] [facility] [address] [place] [id number] Bing Rodriguez PA [address] [facility] [address] [place] [address] Social History Tobacco Use Types Packs/Day Years [...] on filedocumented in this encounter Care Teams Bridge Toll Collector Relationship Specialty Start Date End Date Yogi Abdul MD [facility] [place] [address] PCP - General Family Medicine 03/06/21 documented as of this encounter
--- OUTSIDE RECORDS SUMMARY | 2024-06-26 16:05 | XMS_ITS | Encounter Summary ---
Author Organization [facility] Address [address] [place] [address] Care Team Providers Care Straight Line Edger Name Role Phone Yogi Abdul MD Primary Care Provider [phone] Reason for Referral * Physical Therapy (Routine) - Closed Specialty Diagnoses / Procedures Referred By Contac t Referred To Contact Physical Therapy Diagnoses DDD (degenerative disc disease), lumbar Ania Allison, BLAN[place] [address] [facility] [address] [place] [address] Phone: tel: fax: [facility] - PHYSICAL THERAPY [address] [place] [address] [place] [address] Phone: tel: Referral ID Status Reason Start Date Expiration Date V isits Requested Visits Authorized [id number] Closed Specialty Services Required 11/02/2021 11/02/2022 1 1 Encounter Details Date Type Department Care Team (Late st Contact Info) Description 11/02/2021 Telephone [facility] [address] [facility] [address] [place] [phone] Rosemarie Patricia APRN [address] [place] [address] Social History Tobacco Use Types Packs/Day Years [...] Telephone Encounter - Francoise Graham MA - 11/02/2021 2:10 PM EDT Order mailed * Telephone Encounter - Ania Allison APRN - 11/02/2021 1:08 PM EDT Placed physical therapy orders. Can mail to her. * Telephone Encounter - Francoise Graham MA - 11/02/2021 10:46 AM EDT Patient informed of results messages. She has done PT in the past ( about 2 years ago). She said itdid help some and she is ok to try the PT again. * Telephone Encounter - Francoise Graham MA - 11/02/2021 10:43 AM EDT ----- Message from Ania Allison APRN sent at 10/30/2021 12:01 PM EDT ----- Please notify Pat that the MRI of her brain is completely normal. There is some artifact from herbraces that are in place but otherwise from the imaging as well as my view and the radiologist report & view her MRI of the brain is normal. She should follow-up with Rosemarie Patricia APRN asscheduled in clinic. Thanks, Ania Allison APRN. Fax copy to pcp * Telephone Encounter - Francoise Graham MA - 11/02/2021 10:43 AM EDT ----- Message from Ania Allison APRN sent at 10/30/2021 12:06 PM EDT ----- Please notify Pat that the MRI of [...] as of this encounter Visit Diagnoses Diagnosis DDD (degenerative disc disease), lumbar- Primary Degeneration of lumbar or lumbosacral intervertebral disc documented in this encounter Care Teams Straight Line Edger Relationship Specialty Start Date End Date Yogi Abdul MD [address] [place] [address] PCP - General Family Medicine 03/06/21 documented as of this encounter
--- OUTSIDE RECORDS SUMMARY | 2024-06-26 16:05 | XMS_ITS | Encounter Summary ---
[facility] Address [address] [place] [address] Care Team Providers Care Rn Delivery Name Role Phone Yogi Abdul MD Primary Care Provider [phone] Reason for Visit * Reason Comments Diabetes Follow Up: Had Strep in January and was on steriods Encounter Details Date Type Department Care Team (Late st Contact Info) Description 03/24/2022 9:00 AM EDT Office Visit [facility] ENDOCRINOLOGY [address] [place] [address] Martha Grajeda MD [address] [place] [address] Type 2 diabetes mellitus with hyperglycemia, without long-term current use of insulin (Primary Dx); Polycystic ovaries; Hyperthyroidism Social History Tobacco Use Types Packs/Day Years [...] Sign Reading Time Taken Comments Blood Pressure 112/78 03/24/2022 8:56 AM EDT Pulse 72 03/24/2022 8:56 AM EDT Temperature - - Respiratory Rate - - Oxygen Saturation 98% 03/24/2022 8:56 AM EDT Inhaled Oxygen Concentration - - Weight 128 kg (282 lb 11.2 oz) 03/24/2022 8:56 A M EDT Height 172.7 cm (5' 8 ) 03/24/2022 8:56 AM EDT Body Mass Index 42.98 03/24/2022 8:56 AM EDT documented in this encounter Progress Notes * Martha Grajeda MD - 03/24/2022 9:00 AM EDT Chief complaint Diabetes (Follow Up: Had Strep in January and was on steriods) Subjective Pat Murphy is a 32 y.o. female is here today for follow-up. Diabetes mellitus type 2 diagnosed 09/15/15. Meds: Insulin via T-slim pump Monitoring - Dexcom and glucose data was reviewed and analyzed. Glucose is 98% at goal. No hypoglycemia Metformin and Ozempic continued. She feels well on the medication. March 2017 she was diagnosed with hyperthyroidism TSH was < 0.004 and free T4 of 1.63. TSI antibodies were positive at 486. She underwent thyroid uptake and scan 04/29/2017 which showed normal thyroid uptake of 36%. Heterogenous uptake in the right inferior thyroid, otherwise normal thyroid scan She took a short course of PTU and TFT are stable since then Patient had a strep throat in January and took steroids. Glucose was higher during this time. Medications Current Outpatient Medications: ??? busPIRone (BUSPAR) 15 MG tablet, Take [...] Continuous Blood Gluc Transmit (Dexcom G6 Transmitter) [facility], USE DIRECTED, Disp: 1 each, Rfl: 1 ??? escitalopram (LEXAPRO) 20 MG tablet, Take 20 mg by mouth Daily., Disp: , Rfl: ??? fluticasone (FLONASE) 50 MCG/ACT nasal spray, 1 spray into the nostril(s) as directed by provider Daily., Disp: , Rfl: ??? gabapentin (NEURONTIN) 100 MG capsule, Take 1 capsule by mouth 3 (Three) Times a Day., Disp: 90capsule, Rfl: 5 ??? HumaLOG 100 UNIT/ML injection, USE up to 105 UNITS VIA INSULIN PUMP DAILY, Disp: 40 mL, Rfl: 3 ??? Insulin Pen Needle (Pen [place]) 32G X 4 MM misc, 1 each Daily. Use 1 each 4 times daily with Insulin pen, Disp: 200 each, Rfl: 3 ??? metFORMIN ER (GLUCOPHAGE-XR) 500 MG 24 hr tablet, Take 2 tablets by mouth Daily With Breakfast., Disp: 180 tablet, Rfl: 3 ??? oxybutynin XL (DITROPAN-XL) 10 MG 24 hr tablet, Take 10 mg by mouth Daily., Disp: , Rfl: ??? Semaglutide,0.25 or 0.5MG/DOS, (Ozempic, 0.25 or 0.5 MG/DOSE,) 2 MG/1.5ML solution pen-injector, Inject 0.25 mg under the skin into the appropriate area as directed 1 (One) Time Per Week. 0.25 mgonce a week, then increase to 0.5 mg once a week., Disp: 1.5 mL, Rfl: 6 ??? traZODone (DESYREL) 50 MG tablet, Take 50 mg by mouth As Needed., Disp: , Rfl: ??? Vraylar 1.5 MG capsule capsule, , Disp: , Rfl: Review of systems Review of Systems Constitutional: Positive for fatigue. All other systems reviewed and are negative. Physical exam Objective Blood pressure 112/78, pulse 72, height 172.7 cm (68 ), weight 128 kg (282 lb 11.2 oz), SpO2 98 %, not currently . Body mass index is 42.98 kg/m??. Physical Exam Constitutional: She is oriented [...] reviewed. LABS AND IMAGING Office Visit on 03/24/2022 Component Date Value Ref Range Status ??? Hemoglobin A1C 03/24/2022 6.0 % Final ??? Lot Number 03/24/2022 [id number] Final ??? Expiration Date 03/24/2022 12/03/2023 Final ??? Glucose 03/24/2022 218 (A) 70 - 130 mg/dL Final ??? Lot Number 03/24/2022 [id number] Final ??? Expiration Date 03/24/2022 09/19/2022 Final Assessment Assessment & Plan Problems Addressed this Visit Other Diabetes mellitus (HCC) - Primary Relevant Orders POC Glycosylated Hemoglobin (Hb A1C) (Completed) POC Glucose, Blood (Completed) Polycystic ovaries Hyperthyroidism Diagnoses Codes Comments Type 2 diabetes mellitus with hyperglycemia, without long-term current use of insulin (HCC) - Primary ICD-10-CM: E11.65 ICD-9-CM: 250.00, 790.29 Polycystic ovaries ICD-10-CM: E28.2 ICD-9-CM: 256.4 Hyperthyroidism ICD-10-CM: E05.90 ICD-9-CM: 242.90 Plan Continue insulin via T-slim insulin pump. Dexcom and insulin pump data analyzed. Patient has 98% of the time in good range, no significant hypoglycemia. She is managing the glucose well. Metformin and ozempic are helpful with managing glucose. No side effects Thyroid function ordered along with fasting labs for next time. Follow-up in 3 months documented in this encounter Plan of Treatment Scheduled Orders Name Type Priority Associated Diagnoses Orde r Schedule Microalbumin / Creatinine Urine Ratio - Urine, Clean Catch Lab Routine Type 2 diabetes mellitus with hyperglycemia, without long-term current use of insulin Expected: 06/22/2022 (Approximate) documented as of this encounter Procedures Procedure Name Priority Date/Time Associated Diagnosis Comments POCT GLUCOSE, BLD (NON STRIP) Routine 03/24/2022 9:00 AM EDT Type 2 diabetes mellitus with hyperglycemia, without long-term current use of insulin POCT GLYCOSYLATED HEMOGLOBIN (HGB A1C) Routine 03/24/2022 9:00 AM EDT Type 2 diabetes mellitus with hyperglycemia, without long-term current use of insulin documented in this encounter Results * TSH (06/11/2022 9:58 AM EST) TSH 1.570 0.450 - 4.500 uIU/mL [facility] Blood Structure of left upper limb / Unknown 06/11/2022 9:58 AM EST 06/11/2022 Narrative [facility] [place] ([facility]AT[facility]) - 06/16/2022 12:36 PM EST Performed at: ??01 - [address] ??[id number] Support Services Tech: Reg Singh PhD, Phone: ??[phone] Martha Naik MD LAB BLOOD ORDERABLES Final Res ult Performing Organization Address City/[facility] Co de Phone Number [facility] [place] (AMBULATORY) [address] [place] [address], [facility] [address] [place] [address], [place] [phone] * T4, Free (06/11/2022 9:58 AM EST) Free T4 1.09 0.82 - 1.77 ng/dL [facility] Blood Structure of left upper limb / Unknown 06/11/2022 9:58 AM EST 06/11/2022 Narrative [facility] ([facility]) - 06/16/2022 12:36 PM EST Performed at: ??01 - [address] ??[id number] Support Services Tech: Reg Singh PhD, Phone: ??[phone] Martha Naik MD LAB BLOOD ORDERABLES Final Res ult Performing Organization Address City/[facility]/ZIP Co de Phone Number [facility] (AMBULATORY) [address] [place] [address], [place] [phone] [facility] [address] [place] [address], [place] [phone] * (ABNORMAL) Lipid Panel (06/11/2022 9:58 AM EST) Total Cholesterol 147 100 - 199 mg/dL [facility] Triglycerides 150(H) 0 - 149 mg/dL [facility] HDL Cholesterol 28(L) >39 mg/dL [facility] VLDL Cholesterol Jose 27 5 - 40 mg/dL [facility] LDL Chol Calc (NIH) 92 0 - 99 mg/dL [facility] Blood Structure of left upper limb / Unknown 06/11/2022 9:58 AM EST 06/11/2022 [facility]ative [facility] - 06/16/2022 12:36 PM EST Performed at: ??01 - [address] ??[id number] Support Services Tech: Reg Singh PhD, Phone: ??[phone] us Martha Naik MD LAB BLOOD ORDERABLES Final Res ult [facility] (AMBULATORY) [address] [place] [address], [facility] [address] [place] [address], * (ABNORMAL) Comprehensive Metabolic Panel (06/11/2022 9:58 AM EST) Glucose 179(H) 70 - 99 mg/dL [facility] BUN 9 6 - 20 mg/dL [facility] Creatinine 0.76 0.57 - 1.00 mg/dL [facility] EGFR Result 105 >59 mL/min/1.7 3 [facility] BUN/Creatinine Ratio 12 9 - 23 [facility] Sodium 137 134 - 144 mmol/L [facility] Potassium 4.3 3.5 - 5.2 mmol/L [facility] Chloride 103 96 - 106 mmol/L [facility] Total CO2 22 20 - 29 mmol/L [facility] Calcium 9.1 8.7 - 10.2 mg/dL [facility] Total Protein 6.7 6.0 - 8.5 g/dL [facility] Albumin 4.3 3.8 - 4.8 g/dL [facility] Globulin 2.4 1.5 - 4.5 g/dL [facility] A/G Ratio 1.8 1.2 - 2.2 [facility] Total Bilirubin 0.3 0.0 - 1.2 mg/dL [facility] Alkaline Phosphatase 96 44 - 121 IU/L [facility] AST (SGOT) 23 0 - 40 IU/L [facility] ALT (SGPT) 26 0 - 32 IU/L [facility] Blood Structure of left upper limb / Unknown 06/11/2022 9:58 AM EST 06/11/2022 N[facility]ative [facility] - 06/16/2022 12:36 PM EST Performed at: ??01 - [facility] ??[id number] Support Services Tech: Reg Singh PhD, Phone: ??[phone] Martha Naik MD LAB BLOOD ORDERABLES Final Res ult [facility] (AMBULATORY) [address] [place] [address], [place] [phone] [facility] [address] [place] [address], [place] [phone] * (ABNORMAL) POC Glucose, Blood (03/24/2022 9:00 AM EDT) Glucose 218(A) 70 - 130 mg/dL Lot Number [id number] Expiration Date 09/19/2022 Blood 03/24/2022 9:00 AM EDT Martha Naik MD POINT OF CARE TEST ORDERABLES Final Result * POC Glycosylated Hemoglobin (Hb A1C) (03/24/2022 9:00 AM EDT) Hemoglobin A1C 6.0 % [facility] Lot Number [id number] [facility] Expiration Date 12/03/2023 [facility] Blood 03/24/2022 9:00 AM EDT us Martha Naik MD POINT OF CARE TEST ORDERABLES Final Result [facility]
[address] [place] [id number], documented in this encounter Visit Diagnoses Diagnosis Type 2 diabetes mellitus with hyperglycemia, without long-term current use of insulin- Primary Polycystic ovaries Hyperthyroidism Thyrotoxicosis without mention of goiter or other cause, without mention of thyrotoxic crisis or storm Hyperthyroidism Thyrotoxicosis without mention of goiter or other cause, without mention of thyrotoxic crisis or storm Type 2 diabetes mellitus with hyperglycemia, without long-term current use of insulin documented in this encounter Care Teams Rn Delivery Relationship Specialty Start Date End Date Yogi Abdul MD [address] [place] [address] PCP - General Family Medicine 03/06/21 documented as of this encounter
--- OUTSIDE RECORDS SUMMARY | 2024-06-26 16:05 | XMS_ITS | Encounter Summary ---
Author Organization [facility] Address [address] [place] [address] Care Team Providers Care Supervisor Wood Room Name Role Phone Yogi Abdul MD Primary Care Provider [phone] Reason for Referral * Physical Therapy (Routine) - Closed Specialty Diagnoses / Procedures Referred By Contac t Referred To Contact Physical Therapy Diagnoses DDD (degenerative disc disease), lumbar Chronic midline low back pain with right-sided sciatica Rosemarie Patricia APRN [address] [place] [address] Phone: tel: fax: [address] [address] Phone: tel: fax: Referral ID Status Reason Start Date Expiration Date Visits Requested Visits Authorized [id number] Closed Patient Preference 01/05/2022 01/05/2023 1 1 * Diagnostic Imaging (Routine) - Closed Specialty Diagnoses / Procedures Referred By Contac t Referred To Contact Radiology Diagnoses DDD (degenerative disc disease), lumbar Abnormal MRI, lumbar spine Procedures MRI Lumbar Spine With & Without Contrast Rosemarie Patricia APRN [address] [place] [address] Phone: tel: fax: [address] [phone] Phone: tel: Referral ID Status Reason Start Date Expiration Date Visits Re quested Visits Authorized [id number] Closed 01/05/2022 03/04/2022 1 1 Reason for Visit * Reason Comments cHRONIC MIDLINE LOW BACK PAIN Numbness Encounter Details Date Type Department Care Team (Late st Contact Info) Description 01/05/2022 9:00 AM EDT Office Visit [facility] [address] [phone] Rosemarie Patricia APRN [address] [place] [id number] Numbness in feet (Primary Dx); Periodic headache syndrome, not intractable; DDD (degenerative disc disease), lumbar; Abnormal MRI, lumbar spine; Chronic midline low back pain with right-sided sciatica Social History Tobacco Use Types Packs/Day Years Used Date Smoking Tobacco: Every Day Cigarettes Smokeless Tobacco: Never Tobacco Cessation:Ready to Q uit: Yes; Counseling Given: No Alcohol Use Standard Drinks/Week Comments No 0 [...] Sign Reading Time Taken Comments Blood Pressure 108/70 01/05/2022 8:54 AM EDT Pulse 91 01/05/2022 8:54 AM EDT Temperature 35.9 ??C (96.7 ??F) 01/05/2022 8:54 AM ED T Respiratory Rate - - Oxygen Saturation 99% 01/05/2022 8:54 AM EDT Inhaled Oxygen Concentration - - Weight 127 kg (280 lb) 01/05/2022 8:54 AM EDT Height 172.7 cm (5' 8 ) 01/05/2022 8:54 AM EDT Body Mass Index 42.57 01/05/2022 8:54 AM EDT documented in this encounter Progress Notes * Rosemarie Patricia, NUMERICAL CONTROL TOOL PROGRAMMER - 01/05/2022 9:00 AM EDT Subjective: Patient ID: Pat Murphy is a 31 y.o. female. CC: Chief Complaint Patient presents with ??? cHRONIC MIDLINE LOW BACK PAIN ??? Numbness HPI: History of Present Illness Ms. Murphy is here today for follow-up. I first saw her a few months ago to establish care. She presented with complaints of numbness and pain in her feet and legs as well as low back pain. She told me that she has been struggling with intermittent numbness and tingling in both of her feet, right greater than left as well as low back pain with right leg sciatica for about 9 years now. She felt like the discomfort comes and goes, she said it seems to be a little bit worse in the past year or so. She said she can go 2 to 3 months without having any discomfort or numbness in her feet at all and then will have a flareup of numbness and pain in her feet and leg that last 2 or 3 days. She has a history of sciatica in both pregnancies, she felt like after her last child this became more problematic. She has low back pain midline with occasional radiation down her right leg. Denied bowel or bladder incontinence. She also denied problems with weakness or balance, no falls She is diabetic, she was diagnosed around 2014, she is currently on insulin and followed by endocrinology at [facility]. Her hemoglobin A1c's for the last year have been fairly good, she did havea year or so where her readings were consistently around 8% She adamantly denied any numbness or tingling in her hands, denied weakness in her arms or legs. She does have intermittent migraines, she has had these for a couple years now, she gets maybe 2 migraines per month. These are described as intense headaches typically on the left side of her head at times with photophobia but she does get nauseated often with severe headaches. She denied vision changes, dizziness, stroke symptoms, syncope, tremor weakness or falls. She has never had any back or head injuries After last visit I did get an MRI of her brain which was read as normal. Also ordered MRI of the lumbar spine which showed some degenerative changes and abnormal signal radiology felt was likely degenerative but could not rule out infectious process. She also had EMG which showed mild peripheral neuropathy. She has been in physical therapy quite some time ago for her back has not done this and last couple years. She continues to have intermittent low back pain with right leg sciatica. Her general numbness and tingling in her feet seems to come and go as well. At last visit we had discussed medication such as gabapentin which she declined. She is interested today in trying gabapentin more soas needed than taking regularly. She denies weakness or any progressive symptoms She has no new complaints today The following portions of the patient's history were reviewed and updated as appropriate: allergies, current medications, past family history, past medical history, past social history, past surgicalhistory and problem list. Past Medical History: Diagnosis Date ??? Constipation ??? Cystitis, interstitial ??? Fatigue ??? History of gestational diabetes mellitus ??? History of ovarian cyst ??? Joint pain diffuse joint pain ??? Polycystic ovary syndrome ??? Type 2 diabetes mellitus (HCC) Past Surgical History: Procedure Laterality Date ??? MOUTH SURGERY Social History Socioeconomic History ??? Marital status: Tobacco Use ??? Smoking status: Current Every Day Smoker Packs/day: 0.50 Types: Cigarettes ??? Smokeless tobacco: Never Used Vaping Use ??? Vaping Use: Never used Substance and Sexual Activity ??? Alcohol use: No ??? Drug use: No ??? Sexual activity: Defer Family History Problem Relation Age of Onset ??? Hypertension Mother ??? Neuropathy Father ??? Diabetes Father ??? Hypertension Father ??? Hypertension Maternal Grandmother ??? Hypertension Maternal Grandfather ??? Diabetes Paternal Grandmother ??? Hypertension Paternal Grandmother ??? Diabetes Paternal Grandfather ??? Hypertension Paternal Grandfather ??? Obesity Other ??? Mental illness Other ??? Hyperlipidemia Other ??? Kidney disease Other Kidney transplanted Review of Systems Constitutional: Negative. Eyes: Negative. Respiratory: Negative. Cardiovascular: Negative. Gastrointestinal: Negative. Endocrine: Negative. Genitourinary: Negative. Musculoskeletal: Positive for back pain. Negative for arthralgias, gait problem, joint swelling andmyalgias. Skin: Negative. Allergic/Immunologic: Negative. Neurological: Positive for numbness and headaches. Negative for dizziness, tremors, seizures, syncope, facial asymmetry, speech difficulty, weakness and light-headedness. Hematological: Negative. Psychiatric/Behavioral: Negative. Objective: BP 108/70 Pulse 91 Temp 96.7 ??F (35.9 ??C) Ht 172.7 cm (68 ) Wt 127 kg (280 lb) SpO2 99% BMI 42.57 kg/m?? Neurologic Exam Mental Status Oriented to person, place, and time. Attention: normal. Concentration: normal. Speech: speech is normal Level of consciousness: alert Knowledge: consistent with education. Able to read. Able to write. Normal comprehension. Cranial Nerves Cranial nerves II through XII intact. CN III, IV, Pupils are equal, round, and reactive to light. Extraocular motions are normal. Right pupil: Shape: regular. Reactivity: brisk. Consensual response: intact. Accommodation: intact. Left pupil: Shape: regular. Reactivity: brisk. Consensual response: intact. Accommodation: intact. CN III: no CN III palsy CN : no CN palsy Nystagmus: none Upgaze: normal Downgaze: normal CN V Facial sensation intact. CN VII Facial expression full, symmetric. CN VIII CN VIII normal. CN IX, X CN IX normal. CN X normal. CN XI CN XI normal. CN XII CN XII normal. Motor Exam Muscle bulk: normal Overall muscle tone: normal Right arm tone: normal Left arm tone: normal Right leg tone: normal Left leg tone: normal Strength Strength 5/5 throughout. Sensory Exam Light touch normal. She has sensation to touch in the feet but slight decreased pinprick sensation in both feet and thegreat toes. Normal vibratory sensation lower extremities 2+ pedal pulses with normal color Gait, Coordination, and Reflexes Gait Gait: normal Coordination Finger to nose coordination: normal Tremor Resting tremor: absent Intention tremor: absent Action tremor: absent Reflexes Reflexes 2+ except as noted. Physical Exam Vitals reviewed. Constitutional: General: She is not in acute distress. Appearance: She is well-developed. She is obese. She is not ill-appearing or toxic-appearing. HENT: Head: Normocephalic and atraumatic. Mouth/Throat: Mouth: Mucous membranes are moist. Eyes: General: No scleral icterus. Extraocular Movements: Extraocular movements intact and EOM normal. Conjunctiva/sclera: Conjunctivae normal. Pupils: Pupils are equal, round, and reactive to light. Pulmonary: Effort: Pulmonary effort is normal. No respiratory distress. Musculoskeletal: Cervical back: Normal range of motion and neck supple. Skin: General: Skin is warm. Capillary Refill: Capillary refill takes less than 2 seconds. Neurological: General: No focal deficit present. Mental Status: She is alert and oriented to person, place, and time. Coordination: Cwyine-Nkdk-Vpxntm Test normal. Gait: Gait is intact. Deep Tendon Reflexes: Strength normal. Psychiatric: Mood and Affect: Mood normal. Speech: Speech normal. Behavior: Behavior normal. Thought Content: Thought content normal. Judgment: Judgment normal. Assessment/Plan: Diagnoses and all orders for this visit: 1. Numbness in feet (Primary) - HIPOLITO by IFA, Reflex 9-biomarkers profile - Drug Screen 11 w/Conf, Serum - Basic Metabolic Panel; Future 2. Periodic headache syndrome, not intractable 3. DDD (degenerative disc disease), lumbar - MRI Lumbar Spine With & Without Contrast; Future - Ambulatory Referral to Physical Therapy Evaluate and treat 4. Abnormal MRI, lumbar spine - MRI Lumbar Spine With & Without Contrast; Future 5. Chronic midline low back pain with right-sided sciatica - Ambulatory Referral to Physical Therapy Evaluate and treat We discussed MRI report as well as EMG. Will order MRI lumbar spine with and without rule out infectious process per radiology recommendation. I have sent in a referral for physical therapy as well for her, she request this be done in [facility]. She has flareups of pain and tingling in her feet, could be intermittent sciatica although this occurs in both feet at times, will check HIPOLITO. We discussed medication again and she would like to possibly try gabapentin as needed for her flareups of the burning pain in her feet, at this point she is n ot really interested in using this daily but if her symptoms seem more consistent she could. We will plan to send in gabapentin 100 mg 3 times a day as needed, she has signed controlled substance agreement. Once drug screen has been reviewed we will send in prescription. As part of this patient's treatment plan I am prescribing controlled substances. The patient has been made aware of appropriate use of such medications, including potential risk of somnolence, limited ability to drive and/or work safely, and potential for dependence or overdose. It has also been made clear that these medications are for use by the patient only, without concomitant use of alcohol or other substances unless prescribed. Keep out of reach of children. Jefe report has been reviewed. If this is going to be prescribed long-term, [facility] Controlled Substance Agreement Contract has also been read and signed by patient and myself. We will see her back in about 3 months but I encouraged her to reach out if she has any problems orconcerns prior to follow-up appointment Continue close monitoring of glucose and follow-up with endocrinology Reviewed medications, potential side effects and signs and symptoms to report. Discussed risk versus benefits of treatment plan with patient and/or family- including medications, labs and radiology that may be ordered. Addressed questions and concerns during visit. Patient and/or family verbalized un derstanding and agree with plan. THE PROVIDER, I PERSONALLY WORE PPE DURING ENTIRE FACE TO FACE ENCOUNTER IN CLINIC WITH THE PATIENT. PATIENT ALSO WORE PPE DURING ENTIRE FACE TO FACE ENCOUNTER EXCEPT FOR A MAX OF 30 SECONDS DURING NEUROLOGICAL EVALUATION OF CRANIAL NERVES AND THEN MASK WAS PLACED BACK OVER PATIENT FACE FOR REMAINDER OF VISIT. I WASHED MY HANDS BEFORE AND AFTER VISIT. During this visit the following were done: Labs Reviewed [] Labs Ordered [] Radiology Reports Reviewed [] Radiology Ordered [] PCP Records Reviewed [] Referring Provider Records Reviewed [] ER Records Reviewed [] Hospital Records Reviewed [] History Obtained From Family [] Radiology Images Reviewed [] Other Reviewed [] Records Requested [] Rosemarie Patricia APRN 01/05/2022 * Rosemarie Patricia APRN - 01/05/2022 9:00 AM EDT Please let patient know that her HIPOLITO, marker for certain autoimmune illnesses was negative. There can certainly be false negative and false positive results, if she has further concerning symptoms wecould repeat this in a few months * Rosemarie Patricia APRN - 01/05/2022 9:00 AM EDT Drug screen appropriate, gabapentin sent in for her documented in this encounter Plan of Treatment Not on file documented as of this encounter Procedures Procedure Name Priority Date/Time Associated Diagnosis Comments HIPOLITO BY IFA, REFLEX 9-BIOMARKERS PROFILE Routine 01/05/2022 9:55 AM EDT Numbness in feet CONV SPECIMEN STATUS REPORT* Routine 01/05/2022 9:55 AM EDT Numbness in feet DRUG SCREEN 11 W/CONF, SERUM Routine 01/05/2022 9:55 AM EDT Numbness in feet THERAPY PLAN OF CARE CERT/RE-CERT - SCAN 01/05/2022 documented in this encounter Results * MRI Lumbar Spine With & Without Contrast (02/12/2022 10:07 AM EDT) Anatomical Region Laterality Modality Spine, L-spine N/A Magnetic Resonan ce 02/12/2022 12:5 4 PM EDT Impressions 02/12/2022 1:02 PM EDT 1. ??Improving edema along the inferior L5 endplate without evidence of bony destruction. ??Findings are most likely due to degenerative change. No evidence of osteomyelitis or discitis. 2. ??No pathologic contrast enhancement. 3. ??Stable multilevel degenerative change of the lumbar spine but without significant canal stenosis or neural foraminal narrowing. This report was finalized on 02/12/2022 1:02 PM by David Starks MD. Narrative 02/12/2022 1:02 PM EDT MRI LUMBAR SPINE W WO CONTRAST- Date of Exam: 02/12/2022 9:04 AM Indication: low back pain, right leg sciatica, abnormal signal on non contrased LS spine MRI; M51.36-Other intervertebral disc degeneration, lumbar region; R93.7-Abnormal findings on diagnostic imaging of other parts of musculoskeletal system. Comparison Exams: 10/29/2021 Technique: Routine multiplanar multisequence MR imaging of the lumbar spine was performed before and after the administration ProHance ?? IV gadolinium contrast. FINDINGS: Is normal height and alignment of the lumbar vertebral bodies. ??Again seen is some bone marrow edema along the inferior L5 endplate. ??This is improved when compared to the prior exam there has been some interval development of fatty change along the inferior L5 endplate is well. ??No suspicious contrast enhancement identified. ??Again seen is mild fatty infiltration of the filum terminale The spinal cord terminates at theT12 level with normal signal seen within the conus. The paraspinal soft tissues are within normal limits. Axial images demonstrate: T12/L1:No significant disc bulge. ??No spinal canal stenosis or neural foraminal narrowing. L1/2:No significant disc bulge. ??Facet joints are within normal limits. There is no spinal canal stenosis or neural foraminal narrowing. L2/3:No significant disc bulge. ??Facet joints are within normal limits. There is no spinal canal stenosis or neural foraminal narrowing. L3/4:Mild circumferential disc bulge and mild degenerative facet change. There is no spinal canal stenosis or neural foraminal narrowing. L4/5:Mild circumferential disc bulge and mild degenerative facet change. There is no spinal canal stenosis or neural foraminal narrowing. L5/S1:Mild circumferential disc bulge with small central disc protrusion. ??No significant spinal canal stenosis. ??There are mild degenerative facet changes bilaterally. ??There is no significant neural foraminal narrowing. Procedure Note David Starks MD - 02/12/2022 MRI LUMBAR SPINE W WO CONTRAST- Date of Exam: 02/12/2022 9:04 AM Indication: low back pain, right leg sciatica, abnormal signal on non contrased LS spine MRI; M51.36-Other intervertebral disc degeneration, lumbar region; R93.7-Abnormal findings on diagnostic imaging of other parts of musculoskeletal system. Comparison Exams: 10/29/2021 Technique: Routine multiplanar multisequence MR imaging of the lumbar spine was performed before and after the administration ProHance IV gadolinium contrast. FINDINGS: Is normal height and alignment of the lumbar vertebral bodies. Again seen is some bone marrow edema along the inferior L5 endplate. This is improved when compared to the prior exam there has been some interval development of fatty change along the inferior L5 endplate is well. No suspicious contrast enhancement identified. Again seen is mild fatty infiltration of the filum terminale The spinal cord terminates at theT12 level with normal signal seen within the conus. The paraspinal soft tissues are within normal limits. Axial images demonstrate: T12/L1:No significant disc bulge. No spinal canal stenosis or neural foraminal narrowing. L1/2:No significant disc bulge. Facet joints are within normal limits. There is no spinal canal stenosis or neural foraminal narrowing. L2/3:No significant disc bulge. Facet joints are within normal limits. There is no spinal canal stenosis or neural foraminal narrowing. L3/4:Mild circumferential disc bulge and mild degenerative facet change. There is no spinal canal stenosis or neural foraminal narrowing. L4/5:Mild circumferential disc bulge and mild degenerative facet change. There is no spinal canal stenosis or neural foraminal narrowing. L5/S1:Mild circumferential disc bulge with small central disc protrusion. No significant spinal canal stenosis. There are mild degenerative facet changes bilaterally. There is no significant neural foraminal narrowing. IMPRESSION: 1. Improving edema along the inferior L5 endplate without evidence of bony destruction. Findings are most likely due to degenerative change. No evidence of osteomyelitis or discitis. 2. No pathologic contrast enhancement. 3. Stable multilevel degenerative change of the lumbar spine but without significant canal stenosis or neural foraminal narrowing. This report was finalized on 02/12/2022 1:02 PM by David Starks MD. Rosemarie Patricia NUMERICAL CONTROL TOOL PROGRAMMER IMG MRI ORDERABLES Fi nal Result * Specimen Status Report (01/05/2022 9:55 AM EDT) Specimen Status Comment 6:08 PM EDT [facility] Comment: Written Authorization Written Authorization Written Authorization Received. Authorization received from INTERFACE ORDER 01-06-2022 Logged by Tamiko Correa Blood Venipuncture / Unknown 01/05/2022 9:55 AM EDT 01/05/2022 9:55 AM EDT Narrative [facility] - 01/06/2022 6:08 PM EDT Performed at: ??01 - [address], [place], [place] [id number] Baggage Agent Supervisor: Reg Singh PhD, Phone: ??[phone] Rosemarie Patricia [facility] BLOOD ORDERABLES Final Result [facility] [address] [place] [address], * (ABNORMAL) Basic Metabolic Panel (01/05/2022 9:55 AM EDT) Glucose 139(H) 65 - 99 mg/dL 01/05/2022 4:01 PM EDT [facility] BUN 9 6 - 20 mg/dL 01/05/2022 4:01 PM EDT [facility] Creatinine 0.68 0.57 - 1.00 mg/dL 01/05/2022 4:01 PM EDT [facility] Sodium 138 136 - 145 mmol/L 01/05/2022 4:01 PM EDT [facility] Potassium 4.2 3.5 - 5.2 mmol/L 01/05/2022 4:01 PM EDT [facility] Chloride 104 98 - 107 mmol/L 01/05/2022 4:01 PM EDT [facility] CO2 20.4(L) 22.0 - 29.0 mmol/L 01/05/2022 4:01 PM EDT [facility] Calcium 8.8 8.6 - 10.5 mg/dL 01/05/2022 4:01 PM EDT [facility] BUN/Creatinine Ratio 13.2 7.0 - 25.0 01/05/2022 4:01 PM EDT [facility] Anion Gap 13.6 5.0 - 15.0 mmol/L 01/05/2022 4:01 PM EDT [facility] eGFR 118.1 >60.0 mL/min/1. 73 01/05/2022 4:01 PM EDT [facility] Comment:National Kidney Foun dation and [place] Society of Nephrology (ASN) Task Force recommended calculation based on the Chronic Kidney Disease Epidemiology Collaboration (CKD-EPI) equation refit without adjustment for race. Blood Venipuncture / Unknown 01/05/2022 9:55 AM EDT 01/05/2022 9:55 AM EDT Narrative [facility] - 01/05/2022 4:01 PM EDT GFR Normal >60 Chronic Kidney Disease <60 Kidney Failure <15 Rosemarie Patricia NUMERICAL CONTROL TOOL PROGRAMMER LAB BLOOD ORDERABLES Final Result [facility]
[address] [place] [address], * Drug Screen 11 w/Conf, Serum (01/05/2022 9:55 AM EDT) Ethyl Alcohol, Enz Negative Cutoff:0. 020 gm/dL 01/09/2022 9:06 PM EDT [facility] Amphetamine Screen Negative Cutoff:50 ng/mL 01/09/2022 9:06 PM EDT [facility] Barbiturates Screen Negative Cutoff:0. 1 ug/mL 01/09/2022 9:06 PM EDT [facility] Benzodiazepine Screen Negative Cutoff:20 ng/mL 01/09/2022 9:06 PM EDT [facility] Cocaine + Metabolite Screen Negative Cutoff:25 ng/mL 01/09/2022 9:06 PM EDT [facility] Phencyclidine Screen Negative Cutoff:8 ng/mL 01/09/2022 9:06 PM EDT [facility] THC, Screen Negative Cutoff:5 ng/mL 01/09/2022 9:06 PM EDT [facility] Opiates Negative Cutoff:5 ng/mL 01/09/2022 9:06 PM EDT [facility] Oxycodone Negative Cutoff:5 ng/mL 01/09/2022 9:06 PM EDT [facility] Methadone Screen Negative Cutoff:25 ng/mL 01/09/2022 9:06 PM EDT [facility] Propoxyphene Negative Cutoff:50 ng/mL 01/09/2022 9:06 PM EDT [facility] Comment: This test was developed and its performance characteristics determined by [facility]. ??It has not been cleared or approved by the Food and Drug Administration. Blood Venipuncture / Unknown 01/05/2022 9:55 AM EDT 01/05/2022 9:55 AM EDT Narrative [facility] - 01/09/2022 9:06 PM EDT Performed at: ??01 - [employer] [address] [place] [address] ??[id number] Baggage Agent Supervisor: Kalani Oneal, Phone: ??[phone] Rosemarie Zohra JonesPatricia NUMERICAL CONTROL TOOL PROGRAMMER LAB BLOOD ORDERABLES Final Result [facility] [address] [place] [address], * HIPOLITO by IFA, Reflex 9-biomarkers profile (01/05/2022 9:55 AM EDT) HIPOLITO Negative 01/06/2022 4:10 PM EDT [facility] Comment: ? Negative ?? <1:80 ? Borderline ??1:80 ? Positive ?? >1:80 ICAP nomenclature: AC-0 For more information about Hep-2 cell patterns use ANApatterns.org, the official website for the International Consensus on Antinuclear Antibody (HIPOLITO) Patterns (ICAP). Please note Comment 01/06/2022 4:10 PM EDT [facility] Comment: HIPOLITO Multiplex methodology was designed to detect up to 11 antibodies of the 100+ antibodies that may be detected by HIPOLITO IFA methodology. Blood Venipuncture / Unknown 01/05/2022 9:55 AM EDT 01/05/2022 9:55 AM EDT Narrative [facility] - 01/06/2022 4:10 PM EDT Performed at: ??01 - [facility] [place] [address] [place], [place] ??[id number] Baggage Agent Supervisor: Reg Singh PhD, Phone: ??[phone] Rosemarie Patricia APRN LAB BLOOD ORDERABLES Final Result [facility] [address] [place] [address], * SCANNED -THERAPY PLAN OF CARE (01/05/2022) Ania Allison APRN PT ORDERABLES Final R esult documented in this encounter Visit Diagnoses Diagnosis Numbness in feet- Primary Periodic headache syndrome, not intractable DDD (degenerative disc disease), lumbar Degeneration of lumbar or lumbosacral intervertebral disc Abnormal MRI, lumbar spine Chronic midline low back pain with right-sided sciatica DDD (degenerative disc disease), lumbar Degeneration of lumbar or lumbosacral intervertebral disc Abnormal MRI, lumbar spine documented in this encounter Care Teams Supervisor Wood Room Relationship Specialty Start Date End Date Yogi Abdul MD [address] [id number] PCP - General Family Medicine 03/06/21 documented as of this encounter
--- OUTSIDE RECORDS SUMMARY | 2024-06-26 16:05 | XMS_ITS | Encounter Summary ---
Author Organization [facility] Address [address] [place] [address] Care Team Providers Care Founder / Ceo Name Role Phone Yogi Abdul MD Primary Care Provider [phone] Reason for Visit * Reason Comments Med Refill Encounter Details Date Type Department Care Team (Late st Contact Info) Description 11/29/2021 Refill [facility] ENDOCRINOLOGY [address] [place] [phone] Martha Grajeda MD [address] [place] [address] Social History Tobacco Use Types Packs/Day Years [...] on filedocumented in this encounter Care Teams Founder / Ceo Relationship Specialty Start Date End Date Yogi Abdul MD [address] [place] [address] PCP - General Family Medicine 03/06/21 documented as of this encounter
--- OUTSIDE RECORDS SUMMARY | 2024-06-26 16:05 | XMS_ITS | Encounter Summary ---
Author Organization [facility] Address [address] [place] [address] Care Team Providers Care Curer Acid Drum Name Role Phone Yogi Abdul MD Primary Care Provider [phone] Encounter Details Date Type Department Care Team (Late st Contact Info) Description 07/06/2022 Telephone [facility] ENDOCRINOLOGY [address] [place] [address] Martha Grajeda MD [address] [place], [place] [id number] Social History Tobacco Use Types Packs/Day Years [...] as of this encounter Progress Notes * Malia Davenport MA - 07/06/2022 2:13 PM ESTAddended by: MALIA DAVENPORT on: 07/06/2022 02:13 PM Modules accepted: Orders documented in this encounter Miscellaneous Notes * Telephone Encounter - Malia Davenport MA - 07/06/2022 2:11 PM EST Spoke with ami they stated they only received 1 rx. Will resend both * Telephone Encounter - Malia Davenport MA - 07/06/2022 1:50 PM EST Returned call. Closed for lunch Pt need BOTH. She is on a pump,. So needs syrings, and using Lantus pens for high BS will need pensfor it. * Telephone Encounter - Lin Chawla - 07/06/2022 1:11 PM EST PHARMACY IS NEEDING CLARIFICATION ON SYRINGE PRESCRIPTION WE SENT OVER. THEY ARE NOT SURE IF THEY NEED TO GIVE PATIENT SYRINGES OR PEN NEEDLES. PHONE NUMBER IS [phone] documented in this encounter Plan of Treatment Not on file documented as of this encounter Visit Diagnoses Not on filedocumented in this encounter Care Teams Curer Acid Drum Relationship Specialty Start Date End Date Yogi Abdul MD [address] [place] [address] PCP - General Family Medicine 03/06/21 documented as of this encounter
--- OUTSIDE RECORDS SUMMARY | 2024-06-26 16:05 | XMS_ITS | Encounter Summary ---
[facility] Organization [facility] Address [address] [place] [address] Care Team Providers Care Supervisor Beet End Name Role Phone Yogi Abdul MD Primary Care Provider [phone] Encounter Details Date Type Department Care Team (Late st Contact Info) Description 06/28/2022 Telephone [facility] ENDOCRINOLOGY [address] [place] [address] Martha Merino MD [address] [place], [place] [id number] Social History Tobacco Use Types Packs/Day Years [...] encounter Miscellaneous Notes * Telephone Encounter - Holly Beck (Janine) - 06/29/2022 12:47 PM EST Spoke to pt-contact ami in [place]. They state they do not have ozempic. Contact aramis-he will research and try to find her ozempic at another pharmacy in [place]. She has an appt tomorrow with dr merino-I put her a sample in the frig * Telephone Encounter - Martha Merino MD - 06/28/2022 8:25 PM EST Ozempic is available for order by most of the pharmacies. We have noticed that smaller pharmacies are more likely to have it compared to large pharmacies. Please ask her which pharmacy she is using and [facility] the [facility] (he promised to help with educating pharmacies on availability and the process of ordering it). * Telephone Encounter - Grecia Love RegSched Rep - 06/28/2022 8:03 AM EST Pt called states her blood sugar has been staying in the 200 range this has been going on for 2 weeks now pt seems to think once she stopped taking Ozempic 0.25 or 0.5 mg it caused her blood sugar toelevate. Pt wants to know if there is another medication can be called in due to ozempic not in stock. Pt last f/u 03/24/22 pt next f/u 06/30/22 documented in this encounter Plan of Treatment Not on file documented as of this encounter Visit Diagnoses Not on filedocumented in this encounter Care Teams Supervisor Beet End Relationship Specialty Start Date End Date Yogi Abdul MD [address] [place] [address] PCP - General Family Medicine 03/06/21 documented as of this encounter
--- OUTSIDE RECORDS SUMMARY | 2024-06-26 16:05 | XMS_ITS | Encounter Summary ---
[facility] Organization [facility] Address [address] [place] [address] Care Team Providers Care Pie Topper Name Role Phone Yogi Abdul MD Primary Care Provider [phone] Encounter Details Date Type Department Care Team (Late st Contact Info) Description 01/05/2022 9:55 AM EDT Lab [facility] AT [address] [address] Numbness in feet Social History Tobacco Use [...] Procedure Name Priority Date/Time Associated Diagnosis Comments BASIC METABOLIC PANEL Routine 01/05/2022 9:55 AM EDT Numbness in feet documented in this encounter Results * (ABNORMAL) Basic Metabolic Panel (01/05/2022 9:55 AM EDT) Glucose 139(H) 65 - 99 mg/dL 01/05/2022 4:01 PM EDT [facility] BUN 9 6 - 20 mg/dL 01/05/2022 4:01 PM EDT [facility] Creatinine 0.68 0.57 - 1.00 mg/dL 01/05/2022 4:01 PM EDT [facility] Sodium 138 136 - 145 mmol/L 01/05/2022 4:01 PM EDT [facility] Potassium 4.2 3.5 - 5.2 mmol/L 01/05/2022 4:01 PM EDT [facility] Chloride 104 98 - 107 mmol/L 01/05/2022 4:01 PM EDT [facility] CO2 20.4(L) 22.0 - 29.0 mmol/L 01/05/2022 4:01 PM EDT [facility] Calcium 8.8 8.6 - 10.5 mg/dL 01/05/2022 4:01 PM EDT [facility] BUN/Creatinine Ratio 13.2 7.0 - 25.0 01/05/2022 4:01 PM EDT [facility] Anion Gap 13.6 5.0 - 15.0 mmol/L 01/05/2022 4:01 PM EDT [facility] eGFR 118.1 >60.0 mL/min/1. 73 01/05/2022 4:01 PM EDT [facility] Comment:National Kidney Foun dation and [place] Society of Nephrology (ASN) Task Force recommended calculation based on the Chronic Kidney Disease Epidemiology Collaboration (CKD-EPI) equation refit without adjustment for race. Blood Venipuncture / Unknown 01/05/2022 9:55 AM EDT 01/05/2022 9:55 AM EDT Narrative [facility] - 01/05/2022 4:01 PM EDT GFR Normal >60 Chronic Kidney Disease <60 Kidney Failure <15 us Rosemarie Patricia APRN LAB BLOOD ORDERABLES Final Result [facility]
[address] [place] [address], documented in this encounter Visit Diagnoses Diagnosis Numbness in feet documented in this encounter Care Teams Pie Topper Relationship Specialty Start Date End Date Yogi Abdul MD [address] [place] [address] PCP - General Family Medicine 03/06/21 documented as of this encounter
--- OUTSIDE RECORDS SUMMARY | 2024-06-26 16:05 | XMS_ITS | Encounter Summary ---
Author Organization [facility] Address [address] [place] [address] Care Team Providers Care Tire Maintenance Technician Name Role Phone Yogi Abdul MD Primary Care Provider [phone] Reason for Visit * Reason Comments Med Refill Encounter Details Date Type Department Care Team (Late st Contact Info) Description 09/13/2022 Refill [facility] ENDOCRINOLOGY [address] [place] [phone] Martha Grajeda MD [address] [place] [address] Social History Tobacco Use Types Packs/Day Years [...] on filedocumented in this encounter Care Teams Tire Maintenance Technician Relationship Specialty Start Date End Date Yogi Abdul MD [address] [place] [address] PCP - General Family Medicine 03/06/21 documented as of this encounter
--- OUTSIDE RECORDS SUMMARY | 2024-06-26 16:05 | XMS_ITS | Encounter Summary ---
Author Organization [facility] Address [address] [place] [address] Care Team Providers Care Organic Preparation Technician Name Role Phone Yogi Abdul MD Primary Care Provider [phone] Reason for Visit * Reason Onset Date Comments diagnosis code 07/12/2022 Encounter Details Date Type Department Care Team (Late st Contact Info) Description 07/12/2022 Telephone [facility] ENDOCRINOLOGY [address] [place] [phone] Martha Grajeda MD [address] [place], [place] [phone] diagnosis code Social History Tobacco Use Types Packs/Day Years [...] encounter Miscellaneous Notes * Telephone Encounter - Michelle Gee - 07/12/2022 1:55 PM EST LMOM for Rocio to call the office. JUAN JOSE * Telephone Encounter - Viviana Martinez RegSched Rep - 07/12/2022 1:34 PM EST Rocio from [facility] called. She needs: Diagnosis code for date of service on 06/11/22 Call rocio: [phone] documented in this encounter Plan of Treatment Not on file documented as of this encounter Visit Diagnoses Not on filedocumented in this encounter Care Teams Organic Preparation Technician Relationship Specialty Start Date End Date Yogi Abdul MD [address] [id number] PCP - General Family Medicine 03/06/21 documented as of this encounter
--- OUTSIDE RECORDS SUMMARY | 2024-06-26 16:05 | XMS_ITS | Encounter Summary ---
Author Organization [facility] Address [address] [place] [address] Care Team Providers Care Curtain Worker Name Role Phone Yogi Abdul MD Primary Care Provider [phone] Encounter Details Date Type Department Care Team (Late st Contact Info) Description 09/20/2022 5:00 AM EST Outside Facility Service [facility] CARDIOLOGY [address] [place] [phone] Eliza Marcus MD [address] [place] [address] Social History Tobacco Use Types Packs/Day Years [...] on filedocumented in this encounter Care Teams Curtain Worker Relationship Specialty Start Date End Date Yogi Abdul MD [address] [place], [place] [address] PCP - General Family Medicine 03/06/21 documented as of this encounter
--- OUTSIDE RECORDS SUMMARY | 2024-06-26 16:05 | XMS_ITS | Encounter Summary ---
Author Organization [facility] Address [address] [place] [address] Care Team Providers Care Banana Handler Name Role Phone Yogi Abdul MD Primary Care Provider [phone] Reason for Visit * Reason Comments Med Refill Encounter Details Date Type Department Care Team (Late st Contact Info) Description 04/26/2022 Refill [facility] ENDOCRINOLOGY [address] [place] [phone] Martha Grajeda MD [address] [place], [place] [id number] Social History Tobacco Use Types Packs/Day Years [...] encounter Miscellaneous Notes * Telephone Encounter - Harvey Toney RegSched Rep - 04/26/2022 10:43 AM EDT PT CALLED REQUESTING HUMALOG VIALS RX TO BE SENT IN TO [facility] [place], [place]. PT IS OUT OF MEDS I TOLD PT [facility] JUST SENT A REQUEST * Telephone Encounter - Dafne Hays MA - 04/26/2022 9:51 AM EDT Jag 03/24/2022 Nov 06/30/2022 documented in this encounter Plan of Treatment Not on file documented as of this encounter Visit Diagnoses Not on filedocumented in this encounter Care Teams Banana Handler Relationship Specialty Start Date End Date Yogi Abdul MD [address] [place] [address] PCP - General Family Medicine 03/06/21 documented as of this encounter
--- OUTSIDE RECORDS SUMMARY | 2024-06-26 16:05 | XMS_ITS | Encounter Summary ---
Author Organization [facility] Address [address] [place] [address] Care Team Providers Care Entry Level Manager Name Role Phone Yogi Abdul MD Primary Care Provider [phone] Reason for Visit * Reason Comments Diabetes Follow Up: Blood sug ars have been good since taking Ozempic Encounter Details Date Type Department Care Team (Late st Contact Info) Description 11/06/2021 10:30 AM EDT Office Visit [facility] ENDOCRINOLOGY [address] [place] [address] Martha Grajeda MD [address] [facility] [address] [place], [place] [phone] Type 2 diabetes mellitus with hyperglycemia, without long-term current use of insulin (Primary Dx); Hyperthyroidism Social History Tobacco Use Types Packs/Day [...] Sign Reading Time Taken Comments Blood Pressure 108/72 11/06/2021 10:33 AM EDT Pulse 79 11/06/2021 10:33 AM EDT Temperature - - Respiratory Rate - - Oxygen Saturation 100% 11/06/2021 10:33 AM EDT Inhaled Oxygen Concentration - - Weight 129 kg (284 lb 9.6 oz) 11/06/2021 10:33 A M EDT Height 172.7 cm (5' 8 ) 11/06/2021 10:33 AM EDT Body Mass Index 43.27 11/06/2021 10:33 AM EDT documented in this encounter Progress Notes * Martha Grajeda MD - 11/06/2021 10:30 AM EDT Chief complaint Diabetes (Follow Up: Blood sugars have been good since taking Ozempic) Subjective Pat Murphy is a 31 y.o. female is here today for follow-up. Diabetes mellitus type 2 diagnosed 09/15/15. Meds: Insulin via T-slim pump Monitoring - Dexcom and glucose data was reviewed and analyzed. Glucose is 98% at goal. No hypoglycemia Metformin and Ozempic continued. March 2017 she was diagnosed with hyperthyroidism TSH was < 0.004 and free T4 of 1.63. TSI antibodies were positive at 486. She underwent thyroid uptake and scan 04/29/2017 which showed normal thyroid uptake of 36%. Heterogenous uptake in the right inferior thyroid, otherwise normal thyroid scan Meds 25 mg BID, PTU was discontinued 08/15/2018 at the time of . She had low thyroid function afterwards for several months and received levothyroxine. TFT remained stable. Medications Current Outpatient Medications: ??? busPIRone (BUSPAR) 15 MG tablet, Take 15 mg by mouth 3 (Three) Times a Day., Disp: , Rfl: ??? cetirizine (zyrTEC) 10 MG tablet, , Disp: , Rfl: ??? Continuous Blood Gluc Sensor (Dexcom G6 Sensor), USE DIRECTED, Disp: 3 each, Rfl: 7 ??? Continuous Blood Gluc Sensor (Dexcom G6 Sensor), 1 each Take As Directed., Disp: 3 each, Rfl: 11 ??? Continuous Blood Gluc Transmit (Dexcom G6 Transmitter) [facility], USE DIRECTED, Disp: 1 each, Rfl: 1 ??? escitalopram (LEXAPRO) 20 MG tablet, Take 20 mg by mouth Daily., Disp: , Rfl: ??? fluticasone (FLONASE) 50 MCG/ACT nasal spray, , Disp: , Rfl: ??? HumaLOG 100 UNIT/ML injection, USE up to 105 UNITS VIA INSULIN PUMP DAILY, Disp: 40 mL, Rfl: 3 ??? Insulin Pen Needle (Pen [place]) 32G X 4 MM misc, 1 each [...] by mouth As Needed., Disp: , Rfl: Review of systems Review of Systems Constitutional: Positive for fatigue. All other systems reviewed and are negative. Physical exam Objective Blood pressure 108/72, pulse 79, height 172.7 cm (68 ), weight 129 kg (284 lb 9.6 oz), SpO2 100 %, not currently . Body mass index is 43.27 kg/m??. Physical Exam Constitutional: She is oriented [...] reviewed. LABS AND IMAGING Office Visit on 11/06/2021 Component Date Value Ref Range Status ??? Hemoglobin A1C 11/06/2021 6.1 % Final ??? Lot Number 11/06/2021 [id number] Final ??? Expiration Date 11/06/2021 07/31/2023 Final ??? Glucose 11/06/2021 136 (A) 70 - 130 mg/dL Final ??? Lot Number 11/06/2021 [id number] Final ??? Expiration Date 11/06/2021 02/04/2022 Final Assessment Assessment/Plan Problems Addressed this Visit Other Diabetes mellitus (HCC) - Primary Relevant Medications metFORMIN ER (GLUCOPHAGE-XR) 500 MG 24 hr tablet Other Relevant Orders POC Glycosylated Hemoglobin (Hb A1C) (Completed) POC Glucose, Blood (Completed) Hyperthyroidism Diagnoses Codes Comments Type 2 diabetes mellitus with hyperglycemia, without long-term current use of insulin (HCC) - Primary ICD-10-CM: E11.65 ICD-9-CM: 250.00, 790.29 Hyperthyroidism ICD-10-CM: E05.90 ICD-9-CM: 242.90 Plan Continue insulin via T-slim insulin pump. Dexcom and insulin pump data analyzed. Patient has 98% of the time in good range, no significant hypoglycemia. Thyroid function was normal on recent labs. Results reviewed. Follow-up in 3 months documented in this encounter Plan of Treatment Not on file documented as of this encounter Procedures Procedure Name Priority Date/Time Associated Diagnosis Comments POCT GLUCOSE, BLD (NON STRIP) Routine 11/06/2021 10:40 AM EDT Type 2 diabetes mellitus with hyperglycemia, without long-term current use of insulin POCT GLYCOSYLATED HEMOGLOBIN (HGB A1C) Routine 11/06/2021 10:40 AM EDT Type 2 diabetes mellitus with hyperglycemia, without long-term current use of insulin documented in this encounter Results * (ABNORMAL) POC Glucose, Blood (11/06/2021 10:40 AM EDT) Glucose 136(A) 70 - 130 mg/dL Lot Number [id number] Expiration Date 02/04/2022 Blood 11/06/2021 10:4 0 AM EDT us Martha Grajeda V, MD POINT OF CARE TEST ORDERABLES Final Result * POC Glycosylated Hemoglobin (Hb A1C) (11/06/2021 10:40 AM EDT) Hemoglobin A1C 6.1 % [facility] Lot Number [id number] [facility] Expiration Date 07/31/2023 [facility] Blood 11/06/2021 10:4 0 AM EDT Martha Naki MD POINT OF CARE TEST ORDERABLES Final Result [facility]
[address] [place] [address], documented in this encounter Visit Diagnoses Diagnosis Type 2 diabetes mellitus with hyperglycemia, without long-term current use of insulin- Primary Hyperthyroidism Thyrotoxicosis without mention of goiter or other cause, without mention of thyrotoxic crisis or storm documented in this encounter Care Teams Entry Level Manager Relationship Specialty Start Date End Date Yogi Abdul MD [address] [id number] PCP - General Family Medicine 03/06/21 documented as of this encounter
--- OUTSIDE RECORDS SUMMARY | 2024-06-26 16:05 | XMS_ITS | Encounter Summary ---
Author Organization [facility] Address [address] [place] [address] Care Team Providers Care Physical Therapy Assistant Name Role Phone Yogi Abdul MD Primary Care Provider [phone] Encounter Details Date Type Department Care Team (Late st Contact Info) Description 02/19/2022 Telephone [facility] NEUROLOGY [address] [facility] [address] [place] [address] Rosemarie Patricia, GAMING COMMISSIONER [address] [place] [address] Social History Tobacco Use Types Packs/Day Years [...] encounter Miscellaneous Notes * Telephone Encounter - Lul Graham MA - 02/22/2022 9:33 AM EDT Patient informed of results. She is doing better. She lost her order for the PT. She is going to [facility] in [place]. I will fax the order for her and then she will call them. * Telephone Encounter - Moni Humphries RegSched Rep - 02/19/2022 4:10 PM EDT PT CALLED BACK TO GET TEST RESULTS. LUL WASN'T AVAILABLE. PLEASE CALL PT TO GIVE HER THE MRI TEST RESULTS. PT'S NUMBER IS [phone] * Telephone Encounter - Lul Graham MA - 02/19/2022 11:53 AM EDT 1st attempt. LM for call back. * Telephone Encounter - Lul Graham MA - 02/19/2022 11:53 AM EDT ----- Message from Rosemarie Patricia APRN sent at 02/15/2022 4:10 PM EDT ----- Repeat MRI showed there is still some swelling but this is improved. Radiology feels like this is related to degenerative changes. There is no evidence of infection per their note and no abnormal enhancement. How is she doing? documented in this encounter Plan of Treatment Not on file documented as of this encounter Visit Diagnoses Not on filedocumented in this encounter Care Teams Physical Therapy Assistant Relationship Specialty Start Date End Date Yogi Abdul MD [address] [place] [address] PCP - General Family Medicine 03/06/21 documented as of this encounter
--- OUTSIDE RECORDS SUMMARY | 2024-06-26 16:05 | XMS_ITS | Encounter Summary ---
[facility] Organization [facility] Address [address] [place] [address] Care Team Providers Care Mucking Machine Operator Name Role Phone Yogi Abdul MD Primary Care Provider [phone] Reason for Visit * Reason Onset Date Comments GIBRAN-LAB RESULTS 06/15/2022 Encounter Details Date Type Department Care Team (Late st Contact Info) Description 06/15/2022 Telephone [facility] ENDOCRINOLOGY [address] [place] [phone] Martha Grajeda MD [address] [place] [address] [facility]-LAB RESULTS Social History Tobacco Use Types Packs/Day Years [...] encounter Miscellaneous Notes * Telephone Encounter - Jimena Zayas MA - 06/16/2022 9:27 AM EST Called the pt and told her the labs were collected but not resulted in the chart. And that someone in the labs was checking on those. Once Dr Grajeda has the results someone would call her with them. She verbalized understanding. * Telephone Encounter - Grecia Love RegSched Rep - 06/16/2022 8:45 AM EST Pt called back checking the status on her labs done on 06/11/22 pt is aware labs have not been reviewed yet * Telephone Encounter - Felicia Donahue MA - 06/15/2022 9:30 AM EST Labs show collected but no results. Lab is looking into this. * Telephone Encounter - Marilyn Christopher - 06/15/2022 8:47 AM EST PATIENT CALLED FOR RECENT LAB RESULTS. documented in this encounter Plan of Treatment Not on file documented as of this encounter Visit Diagnoses Not on filedocumented in this encounter Care Teams Mucking Machine Operator Relationship Specialty Start Date End Date Yogi Abdul MD [address] [place] [address] PCP - General Family Medicine 03/06/21 documented as of this encounter
--- OUTSIDE RECORDS SUMMARY | 2024-06-26 16:05 | XMS_ITS | Encounter Summary ---
Author Organization [facility] Address [address] [place] [address] Care Team Providers Care Tower Helper Name Role Phone Yogi Abdul MD Primary Care Provider [phone] Reason for Referral * Diagnostic Imaging (Routine) - Closed Specialty Diagnoses / Procedures Referred By Contac t Referred To Contact Radiology Diagnoses DDD (degenerative disc disease), lumbar Abnormal MRI, lumbar spine Procedures MRI Lumbar Spine With & Without Contrast Rosemarie Patricia APRN [address] [place] [address] Phone: tel: fax: [place] [id number] Phone: tel: Referral ID Status Reason Start Date Expiration Date Visits Re quested Visits Authorized [id number] Closed 01/05/2022 03/04/2022 1 1 Reason for Visit * Diagnostic Imaging (Routine) - Closed Specialty Diagnoses / Procedures Referred By Contac t Referred To Contact Radiology Diagnoses DDD (degenerative disc disease), lumbar Abnormal MRI, lumbar spine Procedures MRI Lumbar Spine With & Without Contrast Rosemarie Patricia APRN [address] [place] [address] Phone: tel: fax: [address] [address] Phone: tel: Referral ID Status Reason Start Date Expiration Date Visits Re quested Visits Authorized [id number] Closed 01/05/2022 03/04/2022 1 1 Encounter Details Date Type Department Care Team (Latest Contact Info) Description 02/12/2022 8:51 AM EDT - 02/12/2022 11:59 PM EDT Hospital Encounter [facility] MRI AT [facility] [address] [place] [address] Rosemarie Patricia, KNIFE FINISHER [address] [place] [address] DDD (degenerative disc disease), lumbar; Abnormal MRI, lumbar spine Discharge Disposition: Home or Self Care Social [...] each Take As Directed. 3 each 11 01/08/2022 3 Continuous Blood Gluc Transmit (Dexcom G6 Transmitter) [facility] USE DIRECTED 1 each 1 11/30/2021 2 escitalopram (LEXAPRO) 20 MG tablet Take 1 tablet by mouth Daily. 05/14/2020 4 fluticasone (FLONASE) 50 MCG/ACT nasal spray 1 spray into the nostril(s) as directed by provider Daily. 07/09/2019 4 gabapentin (NEURONTIN) 100 MG capsuleIndicatio ns:Numbness in feet Take 1 capsule by mouth 3 (Three) Times a Day. 90 capsule 5 01/12/2022 3 HumaLOG 100 UNIT/ML injection USE up to 105 UNITS VIA INSULIN PUMP DAILY 40 mL 3 09/17/2021 2 Insulin Pen Needle (Pen [place]) 32G X 4 MM misc 1 each [...] as of this encounter Progress Notes * Rosemarie Patricia APRN - 02/12/2022 9:30 AM EDT Repeat MRI showed there is still some [...] Date/Time Associated Diagnosis Comments MRI LUMBAR SPINE W WO CONTRAST Routine 02/12/2022 10:07 AM EDT DDD (degenerative disc disease), lumbar Abnormal MRI, lumbar spine documented in this encounter Results * MRI [...] PM by David Starks MD. Rosemarie Patricia APRN IMG MRI ORDERABLES Fi nal Result documented in this encounter Visit Diagnoses Diagnosis DDD (degenerative disc disease), lumbar Degeneration of lumbar or lumbosacral intervertebral disc Abnormal MRI, lumbar spine documented in this encounter Administered Medications Inactive Administered Medications - up to 3 most recent administrations Medication Order MAR Action Action Date Dose Rate Site gadobenate dimeglumine (MULTIHANCE) injection 20 mL 20 mL, Intravenous, Once in Imaging, On Tue02/12/22 at 1009, For 1 dose, Vesicant; admin as rapid bolus; flush with 5 mL NS after admin or 20 mL for renal or aortoiliofemoral vasculature Given 02/12/2022 10:00 AM EDT 20 mL documented in this encounter Care Teams Tower Helper Relationship Specialty Start Date End Date Yogi Abdul MD [address] [place] [address] PCP - General Family Medicine 03/06/21 documented as of this encounter
--- OUTSIDE RECORDS SUMMARY | 2024-06-26 16:05 | XMS_ITS | Encounter Summary ---
[facility] Address [address] [place] [address] Care Team Providers Care Hauling Contractor Name Role Phone Yogi Abdul MD Primary Care Provider [phone] Encounter Details Date Type Department Care Team (Late st Contact Info) Description 02/18/2022 Telephone [facility] ENDOCRINOLOGY [address] [place] [address] Martha Grajeda MD [address] [place], [place] [id number] Social History Tobacco Use Types Packs/Day Years [...] * Telephone Encounter - Michelle Gee - 02/18/2022 3:13 PM EDT SW pt. She is wanting the upgrade to IQ, I advised her to reach out to [employer] and request upgrade and they will send us the rx. Request for Dr. Grajeda to sign. Pt. Voiced understanding. JUAN JOSE * Telephone Encounter - Ania Cardenas RegSched Rep - 02/18/2022 3:09 PM EDT PT CALLED AND IS TRYING TO RESET HER PUMP AND WHEN SHE DID IT TOLD HER THAT SHE NEEDED [facility] IQ PRESCRIPTION SENT IN. PLEASE CALL THE PT WITH ANY QUESTIONS AT [phone] LAST OV 11/06/21 F/U 03/24/22 documented in this encounter Plan of Treatment Not on file documented as of this encounter Visit Diagnoses Not on filedocumented in this encounter Care Teams Hauling Contractor Relationship Specialty Start Date End Date Yogi Abdul MD [address] [place] [address] PCP - General Family Medicine 03/06/21 documented as of this encounter
--- OUTSIDE RECORDS SUMMARY | 2024-06-26 16:05 | XMS_ITS | Encounter Summary ---
Author Organization [facility] Address [address] [place] [address] Care Team Providers Care Wildlife Forensic Geneticist Name Role Phone Yogi Abdul MD Primary Care Provider [phone] Reason for Visit * Reason Onset Date Comments Med Refill 01/08/2022 Encounter Details Date Type Department Care Team (Late st Contact Info) Description 01/08/2022 Refill [facility] ENDOCRINOLOGY [address] [place] [id number] Martha Grajeda MD [address] [place], [place] [id number] Social History Tobacco Use Types Packs/Day Years [...] encounter Miscellaneous Notes * Telephone Encounter - Marilyn Christopher - 01/08/2022 11:32 AM EDT [facility] documented in this encounter Plan of Treatment Not on file documented as of this encounter Visit Diagnoses Not on filedocumented in this encounter Care Teams Wildlife Forensic Geneticist Relationship Specialty Start Date End Date Yogi Abdul MD [address] [place] [address] PCP - General Family Medicine 03/06/21 documented as of this encounter
--- OUTSIDE RECORDS SUMMARY | 2024-06-26 16:05 | XMS_ITS | Encounter Summary ---
[facility] Address [address] [place] [address] Care Team Providers Care Family Law Attorney Name Role Phone Yogi Abdul MD Primary Care Provider [phone] Encounter Details Date Type Department Care Team (Late st Contact Info) Description 10/08/2022 Telephone [facility] NEUROLOG[facility] [address] Cortney Gee Social History Tobacco Use Types Packs/Day Years [...] encounter Miscellaneous Notes * Telephone Encounter - Cortney Gee - 10/08/2022 9:37 AM EDT Patient came into the office, I had to reschedule into March. I did offer her another provider,due to Shantanu Patricia no longer being here. documented in this encounter Plan of Treatment Not on file documented as of this encounter Visit Diagnoses Not on filedocumented in this encounter Care Teams Family Law Attorney Relationship Specialty Start Date End Date Yogi Abdul MD [address] [place] [address] PCP - General Family Medicine 03/06/21 documented as of this encounter
--- OUTSIDE RECORDS SUMMARY | 2024-06-26 16:05 | XMS_ITS | Encounter Summary ---
[facility] Address [address] [place] [address] Care Team Providers Care Small Products Assembler Name Role Phone Yogi Abdul MD Primary Care Provider [phone] Encounter Details Date Type Department Care Team (Late st Contact Info) Description 11/02/2021 Telephone [facility] NEUROLOGY [address] [address] Rosemarie Patricia, GOLF BALL MOLDER [address] [place] [address] Social History Tobacco Use Types Packs/Day Years [...] Encounter - Francoise Graham MA - 11/02/2021 10:30 AM EDT Normal results mailed to patient * Telephone Encounter - Francoise Graham MA - 11/02/2021 10:30 AM EDT ----- Message from Ania Allison [...] Ania Allison APRN. Fax copy to pcp documented in this encounter Plan of Treatment Not on file documented as of this encounter Visit Diagnoses Not on filedocumented in this encounter Care Teams Small Products Assembler Relationship Specialty Start Date End Date Yogi Abdul MD [address] [place] [address] PCP - General Family Medicine 03/06/21 documented as of this encounter
--- OUTSIDE RECORDS SUMMARY | 2024-06-26 16:05 | XMS_ITS | Encounter Summary ---
Author Organization [facility] Address [address] [place] [address] Care Team Providers Care Bleacher Groundwood Pulp Name Role Phone Yogi Abdul MD Primary Care Provider [phone] Reason for Referral * Diagnostic Imaging (Routine) - Closed Specialty Diagnoses / Procedures Referred By Irma t Referred To Contact Radiology Diagnoses Numbness in feet Periodic headache syndrome, not intractable Procedures MRI Brain Without Contrast Rosemarie Patricia APRN [address] [place] [address] Phone: tel: fax: [address] [address] Phone: tel: Referral ID Status Reason Start Date Expiration Date Visits Re quested Visits Authorized [id number] Closed 09/28/2021 11/06/2021 1 1 Reason for Visit * Diagnostic Imaging (Routine) - Closed Specialty Diagnoses / Procedures Referred By Irma eugene Referred To Contact Radiology Diagnoses Numbness in feet Periodic headache syndrome, not intractable Procedures MRI Brain Without Contrast Rosemarie Patricia APRN [address] [place] [address] Phone: tel: fax: [address] [address] Phone: tel: Referral ID Status Reason Start Date Expiration Date Visits Re quested Visits Authorized [id number] Closed 09/28/2021 11/06/2021 1 1 Encounter Details Date Type Department Care Team (Latest Contact Info) Description 10/29/2021 6:14 PM EDT - 10/29/2021 11:59 PM EDT Hospital Encounter [facility] MRI [address] [place] [id number] Numbness in feet; Periodic headache syndrome, not intractable Discharge Disposition: Home or Self Care Social [...] 3 09/17/2021 2 Insulin Pen Needle (Pen [place]) 32G X 4 MM misc 1 each [...] Progress Notes * Ania Allison APRN - 10/29/2021 6:30 PM EDT Please notify Pat that the [...] Name Priority Date/Time Associated Diagnosis Comments MRI BRAIN WO CONTRAST Routine 10/29/2021 7:26 PM EDT Numbness in feet Periodic headache syndrome, not intractable documented in this encounter Results * MRI Brain Without Contrast (10/29/2021 7:26 PM EDT) Anatomical Region Laterality Modality Head, Neck N/A Magnetic Resonan ce 10/30/2021 8:44 AM EDT Impressions 10/30/2021 8:47 AM EDT Accounting for artifact related to patient's braces, normal noncontrast MRI. There is no evidence of ischemia, hemorrhage, mass or mass effect. This report was finalized on 10/30/2021 8:47 AM by Derick Brewer. Narrative 10/30/2021 8:47 AM EDT DATE OF EXAM: 10/29/2021 7:00 PM PROCEDURE: MRI BRAIN WO CONTRAST- INDICATIONS: headaches, migraines; R20.0-Anesthesia of skin; G43.C0-Periodic headache syndromes in child or adult, not intractable COMPARISON: No comparisons available. TECHNIQUE: Multiplanar multisequence images of the brain were performed without contrast according to routine brain MRI protocol. FINDINGS: No acute infarct noted on diffusion weighted sequences, accounting for significant artifact related to orthodontic hardware. Midline structures are grossly unremarkable and the craniocervical junction is satisfactory in appearance. Rmaos-white differentiation is maintained and there is no evidence of intracranial hemorrhage, mass or mass effect. The ventricles are normal in size and can aeration. The orbits are obscured by artifact. The paranasal sinuses are also suboptimally evaluated. Intracranial arterial flow voids appear maintained. Procedure Note Derick Brewer MD - 10/30/2021 DATE OF EXAM: 10/29/2021 7:00 PM PROCEDURE: MRI BRAIN WO CONTRAST- INDICATIONS: headaches, migraines; R20.0-Anesthesia of skin; G43.C0-Periodic headache syndromes in child or adult, not intractable COMPARISON: No comparisons available. TECHNIQUE: Multiplanar multisequence images of the brain were performed without contrast according to routine brain MRI protocol. FINDINGS: No acute infarct noted on diffusion weighted sequences, accounting for significant artifact related to orthodontic hardware. Midline structures are grossly unremarkable and the craniocervical junction is satisfactory in appearance. Ramos-white differentiation is maintained and there is no evidence of intracranial hemorrhage, mass or mass effect. The ventricles are normal in size and can aeration. The orbits are obscured by artifact. The paranasal sinuses are also suboptimally evaluated. Intracranial arterial flow voids appear maintained. IMPRESSION: Accounting for artifact related to patient's braces, normal noncontrast MRI. There is no evidence of ischemia, hemorrhage, mass or mass effect. This report was finalized on 10/30/2021 8:47 AM by Derick Brewer. Rosemarie Patricia APRN IM MRI ORDERABLES Fi nal Result documented in this encounter Visit Diagnoses Diagnosis Numbness in feet Periodic headache syndrome, not intractable documented in this encounter Care Teams Bleacher [employer] Pulp Relationship Specialty Start Date End Date Yogi Abdul MD [address] [place] [address] PCP - General Family Medicine 03/06/21 documented as of this encounter
--- OUTSIDE RECORDS SUMMARY | 2024-06-26 16:05 | XMS_ITS | Encounter Summary ---
Author [facility] Address [address] [place] [address] Care Team Providers Care Turkey Boner Name Role Phone Yogi Abdul MD Primary Care Provider [phone] Encounter Details Date Type Department Care Team (Late st Contact Info) Description 04/01/[address] [facility] NEUROLOGY [facility] [address] Cortney Gee Social History Tobacco [...] * Telephone Encounter - Cortney Gee - 04/01/2022 9:31 AM EDT Called patient, sent Well Marcello message, and sent letter. Need to reschedule patient as a new patient, at any location or provider. documented in this encounter Plan of Treatment Not on file documented as of this encounter Visit Diagnoses Not on filedocumented in this encounter Care Teams Turkey Boner Relationship Specialty Start Date End Date Yogi Abdul MD [address] [place] [address] PCP - General Family Medicine 03/06/21 documented as of this encounter
--- OUTSIDE RECORDS SUMMARY | 2024-06-26 16:05 | XMS_ITS | Encounter Summary ---
[facility] Address [address] [place] [address] Care Team Providers Care Cold Storage Supervisor Name Role Phone Yogi Abdul MD Primary Care Provider Encounter Details Date Type Department Care Team (Late st Contact Info) Description 01/08/[address] [facility] NEUROLOGY [address] [address] Rosemarie Patricia, BLANCA [address] [place] [id number] Social History Tobacco Use Types Packs/Day Years [...] Telephone Encounter - Francoise Graham MA - 01/08/2022 10:54 AM EDT Results letter mailed to patient * Telephone Encounter - Francoise Graham MA - 01/08/2022 10:54 AM EDT ----- Message from Rosemarie Patricia APRN sent at 01/08/2022 8:07 AM EDT ----- Please let patient know that her HIPOLITO, marker for certain autoimmune illnesses was negative. There can certainly be false negative and false positive results, if she has further concerning symptoms wecould repeat this in a few months documented in this encounter Plan of Treatment Not on file documented as of this encounter Visit Diagnoses Not on filedocumented in this encounter Care Teams Cold Storage Supervisor Relationship Specialty Start Date End Date Yogi Abdul MD [address] [place] [address] PCP - General Family Medicine 03/06/21 documented as of this encounter
--- OUTSIDE RECORDS SUMMARY | 2024-06-26 16:05 | XMS_ITS | Encounter Summary ---
[facility] Address [address] [place] [address] Care Team Providers Care Sandwich Artist Name Role Phone Yogi Abdul MD Primary Care Provider [phone] Encounter Details Date Type Department Care Team (Late st Contact Info) Description 01/12/2022 Telephone [facility] NEUROLOGY [address] [facility] [address] [place] [address] Rosemarie Patricia, RESEARCH TECH [address] [place] [address] Social History Tobacco Use Types Packs/Day Years [...] Telephone Encounter - Francoise Graham MA - 01/12/2022 2:17 PM EDT Lm that labs ok and gabapentin was sent in. OK for HUB to relay result message * Telephone Encounter - Francoise Graham MA - 01/12/2022 2:17 PM EDT ----- Message from Rosemarie Patricia APRN sent at 01/12/2022 10:48 AM EDT ----- Drug screen appropriate, gabapentin sent in for her documented in this encounter Plan of Treatment Not on file documented as of this encounter Visit Diagnoses Not on filedocumented in this encounter Care Teams Sandwich Artist Relationship Specialty Start Date End Date Yogi Abdul MD [address] [place] [id number] PCP - General Family Medicine 03/06/21 documented as of this encounter
--- OUTSIDE RECORDS SUMMARY | 2024-06-26 16:05 | XMS_ITS | Encounter Summary ---
[facility] Address [address] [place] [address] Care Team Providers Care Machinery Erector Name Role Phone oYgi Abdul MD Primary Care Provider [phone] Reason for Visit * Reason Comments Med Refill Encounter Details Date Type Department Care Team (Late st Contact Info) Description 02/09/2023 Refill [facility] ENDOCRINOLOGY [address] [place] [phone] Martha Grajeda MD [address] [place], [place] [id number] Social History Tobacco Use Types Packs/Day Years [...] Telephone Encounter - Rebecca Multani CMA - 02/09/2023 4:41 PM EDT Rx Refill Note Requested Prescriptions Pending Prescriptions Disp Refills Continuous Blood Gluc Sensor (Dexcom G6 Sensor) [Pharmacy Med Name: DEXCOM G6 SENSOR] 3 each 11 Sig: USE 1 SENSOR DIRECTED Last office visit with prescribing clinician: 06/30/2022 Last telemedicine visit with prescribing clinician: Visit date not found Next office visit with prescribing clinician: 06/08/2023 Would you like a call back once the refill request has been completed: [] Yes [] No If the office needs to give you a call back, can they leave a voicemail: [] Yes [] No Rebecca Multani CMA 02/09/23, 16:41 EDT documented in this encounter Plan of Treatment Not on file documented as of this encounter Visit Diagnoses Not on filedocumented in this encounter Care Teams Machinery Erector Relationship Specialty Start Date End Date Yogi Abdul MD [address] [place] [id number] PCP - General Family Medicine 03/06/21 documented as of this encounter
--- OUTSIDE RECORDS SUMMARY | 2024-06-26 16:05 | XMS_ITS | Encounter Summary ---
Author Organization [facility] Address [address] [place] [address] Care Team Providers Care Wool Batting Worker Name Role Phone Yogi Abdul MD Primary Care Provider [phone] Encounter Details Date Type Department Care Team (Latest Contact Info) Description 06/11/2022 9:15 AM EST Clinical Support [facility] PRIMARY [facility]ARE [address] [place] [address] [place] [address] Hyperthyroidism; Type 2 diabetes mellitus with hyperglycemia, without long-term current use of insulin Social History Tobacco Use Types Packs/Day Years [...] as of this encounter Progress Notes * Azalea Abarca MA - 06/11/2022 9:15 AM EST Venipuncture Blood Specimen Collection Venipuncture performed in left arm by Azalea Abarca MA with good hemostasis. Patient tolerated the procedure well without complications. 06/11/22 Azalea Abarca MA documented in this encounter Plan of Treatment Not on file documented as of this encounter Procedures Procedure Name Priority Date/Time Associated Diagnosis Comments TSH Routine 06/11/2022 9:58 AM EST Hyperthyroidism T4, FREE Routine 06/11/2022 9:58 AM EST Hyperthyroidism LIPID PANEL Routine 06/11/2022 9:58 AM EST Type 2 diabetes mellitus with hyperglycemia, without long-term current use of insulin COMPREHENSIVE METABOLIC PANEL Routine 06/11/2022 9:58 AM EST Type 2 diabetes mellitus with hyperglycemia, without long-term current use of insulin documented in this encounter Results * (ABNORMAL) Comprehensive Metabolic Panel (06/11/2022 9:58 [...] / Unknown 06/11/2022 9:58 AM EST 06/11/2022 [facility] ([facility]UL[facility]) - 06/16/2022 12:36 PM EST Performed at: ??01 - [facility] [place] [address] [place], [place] ??[id number] Catering Truck Driver: Reg Singh PhD, Phone: ??[phone] Martha Naik MD LAB BLOOD ORDERABLES Final Res ult Performing Organization Address City/[facility]/ZIP Co de Phone Number [facility] [address] [place] [address], [place] [phone] [facility] [address] [place] [address], [place] [phone] * (ABNORMAL) Lipid Panel (06/11/2022 9:58 AM [...] Unknown 06/11/2022 9:58 AM EST 06/11/2022 Narrative [facility] - 06/16/2022 12:36 PM EST Performed at: ??01 - [facility] [address] ??[id number] Catering Truck Driver: Reg Singh PhD, Phone: ??[phone] Martha Naik MD LAB BLOOD ORDERABLES Final Res ult Performing Organization Address City/[facility]/ZIP Co de Phone Number [facility] [address] [place] [address], [place] [phone] [facility] [address] [place] [address], [place] [phone] * T4, Free (06/11/2022 9:58 AM EST) Free T4 1.09 0.82 - 1.77 ng/dL [facility] Blood Structure of left upper limb / Unknown 06/11/2022 9:58 AM EST 06/11/2022 Narrative [facility] (AMBUL[facility]ORY) - 06/16/2022 12:36 PM EST Performed at: ??01 - [facility] [address] ??[id number] Catering Truck Driver: Reg Singh PhD, Phone: ??[phone] Martha Naik MD LAB BLOOD ORDERABLES Final Res ult Performing Organization Address [facility] Co de Phone Number [facility] (AMBULATORY) [address] [place] [address], [place] [phone] [facility] [address] [place] [address], [place] [phone] * TSH (06/11/2022 9:58 AM EST) TSH 1.570 0.450 - 4.500 uIU/mL [facility] Blood Structure of left upper limb / Unknown 06/11/2022 9:58 AM EST 06/11/2022 Narrative [facility] (AMBULATORY) - 06/16/2022 12:36 PM EST Performed at: ??01 - [facility] [address] ??[id number] Catering Truck Driver: Reg Singh PhD, Phone: ??[phone] Martha Naik MD LAB BLOOD ORDERABLES Final Res ult Performing Organization Address [facility] Co de Phone Number [facility] (AMBULATORY) [address] [place] [address], [place] [phone] [facility] [address] [place] [address], [place] [phone] documented in this encounter Visit Diagnoses Diagnosis Hyperthyroidism Thyrotoxicosis without mention of goiter or other cause, without mention of thyrotoxic crisis or storm Type 2 diabetes mellitus with hyperglycemia, without long-term current use of insulin documented in this encounter Care Teams Wool Batting Worker Relationship Specialty Start Date End Date Yogi Abdul MD [address] [place] [address] PCP - General Family Medicine 03/06/21 documented as of this encounter
--- OUTSIDE RECORDS SUMMARY | 2024-06-26 16:06 | XMS_ITS | Encounter Summary ---
[facility] Address [address] [place] [address] Care Team Providers Care Quartz Mounter Name Role Phone Maine Leblanc Primary Care Provide r Reason for Visit * Reason Comments Diabetes Follow Up Encounter Details Date Type Department Care Team (Late st Contact Info) Description 06/11/2020 8:15 AM EST Office Visit [facility] ENDOCRINOLOGY [address] [place] [phone] Martha Grajeda MD [address] [place], [place] [id number] Type 2 diabetes mellitus with hyperglycemia, without long-term current use of insulin (Primary Dx); Hyperthyroidism Social History Tobacco Use Types Packs/Day Years Used Date Smoking Tobacco: Former Cigarettes Smokeless Tobacco: Never Alcohol Use Standard [...] Sign Reading Time Taken Comments Blood Pressure 120/80 06/11/2020 8:20 AM EST Pulse 72 06/11/2020 8:20 AM EST Temperature 36.1 ??C (96.9 ??F) 06/11/2020 8:20 AM ES T Respiratory Rate - - Oxygen Saturation 98% 06/11/2020 8:20 AM EST Inhaled Oxygen Concentration - - Weight 129 kg (283 lb 9.6 oz) 06/11/2020 8:20 AM EST Height 172.7 cm (5' 8 ) 06/11/2020 8:20 AM EST Body Mass Index 43.12 06/11/2020 8:20 AM EST documented in this encounter Patient Instructions * Patient Instructions* Martha Grajeda MD - 06/11/2020 8:15 AM EST 12/[birth year]19 Pat Murphy 1990 Results for orders placed or performed in visit on 06/11/20 POC Glucose, Blood Specimen: Blood Result Value Ref Range Glucose 181 (A) 70 - 130 mg/dL Lot Number [id number] Expiration Date 12/24/2020 POC Glycosylated Hemoglobin (Hb A1C) Specimen: Blood Result Value Ref Range Hemoglobin A1C 8.0 % Lot Number [id number] Expiration Date 03/25/2022 Continue metformin and glyburide. ADA General Goals: A1c: < 7% Fasting/before meal glucose: <150 mg/dL 2 Hour after meal glucoses: < 180 mg/dL Bedtime glucose:120-180 Lantus 36 units before bedtime. Start Humalog 6 units with dinner Add correction insulin: Glucose 200-249 - add 2 units 250-299 - add 4 units 300-349 - add 6 units > 350 - add 8 units If you are having frequent blood sugars lower than 70, call the office. Martha Grajeda MD documented in this encounter Progress Notes * Martha Grajeda MD - 06/11/2020 8:15 AM EST Chief complaint Diabetes (Follow Up) Subjective Pat Murphy is a 30 y.o. female is here today for follow-up. Diabetes mellitus type 2 diagnosed 09/15/15. Reports having gestational DM with first ; took Glyburide during that time. Meds: prior to metformin ER 500 mg - 2 tablets bid with food. Glyburide 5 mg daily. During she required insulin Lantus and Humalog , which was discontinued after the delivery and restarted later as the glucose increased Monitoring - Dexcom and glucose data was reviewed and analyzed. March 2017 she was diagnosed with hyperthyroidism TSH was < 0.004 and free T4 of 1.63. TSI antibodies were positive at 486. she underwent thyroid uptake and scan 04/29/2017 which showed normal thyroid uptake of 36%. Heterogenous uptake in the right inferior thyroid, otherwise normal thyroid scan Meds 25 mg BID PTU was discontinued 08/15/2018 at the time of . Thyroid levels were tested with rougher helper Cha Osorio and levels were normal off the medication. November 2018 sh ehad TSH 2.77 and low FT4, was started on levothyroxine 25 at that time and increased to 50mcg 01/23/19 by rougher helper. Levothyroxine discontinued after that and levels remained stable. C/o heart palpitations, no tremors or anxiety, has some insomnia. C/o back pain, tingling and burning in the burning. Started Weight Watchers and lost a few lbs. Medications Current Outpatient Medications: ??? busPIRone (BUSPAR) 15 MG tablet, Take 15 mg by mouth 3 (Three) Times a Day., Disp: , Rfl: ??? cetirizine (zyrTEC) 10 MG tablet, , Disp: , Rfl: ??? Continuous Blood Gluc Sensor (DEXCOM G6 SENSOR), 1 each Take As Directed., Disp: 3 each, Rfl: 11 ??? Continuous Blood Gluc Transmit (DEXCOM G6 TRANSMITTER) misc, 1 each Take As Directed., Disp: 1 each, Rfl: 3 ??? escitalopram (LEXAPRO) 20 MG tablet, Take 20 mg by mouth Daily., Disp: , Rfl: ??? fluticasone (FLONASE) 50 MCG/ACT nasal spray, , Disp: , Rfl: ??? glyburide (DIAbeta) 5 MG tablet, Take 2 tablets twice a day, Disp: 360 tablet, Rfl: 3 ??? insulin degludec (TRESIBA FLEXTOUCH) 100 UNIT/ML solution pen-injector injection, Inject 40 Units under the skin into the appropriate area as directed Daily., Disp: 5 pen, Rfl: 11 ??? Insulin Lispro, 1 Unit Dial, (HumaLOG KwikPen) 100 UNIT/ML solution pen- injector, Inject 10 Units under the skin into the appropriate area as directed Daily With Dinner., Disp: 5 pen, Rfl: 6 ??? Insulin Pen Needle (Pen [place]) 32G X 4 MM misc, 1 each Daily. Use 1 each 4 times daily with Insulin pen, Disp: 200 each, Rfl: 3 ??? metFORMIN ER (GLUCOPHAGE-XR) 500 MG 24 hr tablet, Take 2 tablets by mouth Daily With Breakfast., Disp: 60 tablet, Rfl: 11 ??? Vraylar 1.5 MG capsule capsule, Take 1.5 mg by mouth Daily., Disp: , Rfl: PMH The following portions of the patient's history were reviewed and updated as appropriate: allergies, current medications, past family history, past medical history, past social history, past surgicalhistory and problem list. Review of systems Review of Systems Constitutional: Positive for fatigue. Psychiatric/Behavioral: Positive for sleep disturbance. All other systems reviewed and are negative. Physical exam Objective Blood pressure 120/80, pulse 72, temperature 96.9 ??F (36.1 ??C), height 172.7 cm (68 ), weight 129kg (283 lb 9.6 oz), SpO2 98 %, not currently . Physical Exam Constitutional: She is oriented to [...] reviewed. LABS AND IMAGING Office Visit on 06/11/2020 Component Date Value Ref Range Status ??? Glucose 06/11/2020 181* 70 - 130 mg/dL Final ??? Lot Number 06/11/2020 [id number] Final ??? Expiration Date 06/11/2020 12/24/2020 Final ??? Hemoglobin A1C 06/11/2020 8.0 % Final ??? Lot Number 06/11/2020 [id number] Final ??? Expiration Date 06/11/2020 03/25/2022 Final Assessment Assessment/Plan Problems Addressed this Visit Endocrine Diabetes mellitus ([facility]) - Primary Relevant Orders POC Glucose, Blood (Completed) POC Glycosylated Hemoglobin (Hb A1C) (Completed) Comprehensive Metabolic Panel Hyperthyroidism Relevant Orders TSH T4, Free Diagnoses Codes Comments Type 2 diabetes mellitus with hyperglycemia, without long-term current use of insulin ([facility]) - Primary ICD-10-CM: E11.65 ICD-9-CM: 250.00, 790.29 Hyperthyroidism ICD-10-CM: E05.90 ICD-9-CM: 242.90 Plan Continue metformin and glyburide, Lantus 36 units and Humalog 6 units with larger meal (dinner). Insulin titration instructions given. I have reviewed Dexcom data and her nighttime glucose is close to goal, postprandial surge after lunch is seen and improved after dinner. new instructions given. Since she started Weight watchers cont same lantus. Insulin titration instructions provided and hypoglycemia precautions reviewed. Patient will continue to monitor glucose twice a day and call the office if the numbers are still too high or if there is hypoglycemia. Dexcom data analyzed. Hypoglycemia precautions reviewed. Fasting labs today Recheck thyroid function. Follow-up in 3 months documented in this encounter Plan of Treatment Not on file documented as of this encounter Procedures Procedure Name Priority Date/Time Associated Diagnosis Comments TSH Routine 06/11/2020 9:19 AM EST Hyperthyroidism T4, FREE Routine 06/11/2020 9:19 AM EST Hyperthyroidism COMPREHENSIVE METABOLIC PANEL Routine 06/11/2020 9:19 AM EST Type 2 diabetes mellitus with hyperglycemia, without long-term current use of insulin POCT GLYCOSYLATED HEMOGLOBIN (HGB A1C) Routine 06/11/2020 8:26 AM EST Type 2 diabetes mellitus with hyperglycemia, without long-term current use of insulin POCT GLUCOSE, BLD (NON STRIP) Routine 06/11/2020 8:25 AM EST Type 2 diabetes mellitus with hyperglycemia, without long-term current use of insulin documented in this encounter Results * (ABNORMAL) Comprehensive Metabolic Panel (06/11/2020 9:19 AM EST) Glucose 179(H) 65 - 99 mg/dL 06/11/2020 2:38 PM [facility] BUN 9 6 - 20 mg/dL 06/11/2020 2:38 PM [facility] Creatinine 0.70 0.57 - 1.00 mg/dL 06/11/2020 2:38 PM [facility] Sodium 137 136 - 145 mmol/L 06/11/2020 2:38 PM [facility] Potassium 4.4 3.5 - 5.2 mmol/L 06/11/2020 2:38 PM [facility] Chloride 103 98 - 107 mmol/L 06/11/2020 2:38 PM [facility] CO2 22.8 22.0 - 29.0 mmol/L 06/11/2020 2:38 PM [facility] Calcium 9.0 8.6 - 10.5 mg/dL 06/11/2020 2:38 PM [facility] Total Protein 7.1 6.0 - 8.5 g/dL 06/11/2020 2:38 PM [facility] Albumin 4.10 3.50 - 5.20 g/dL 06/11/2020 2:38 PM [facility] ALT (SGPT) 28 1 - 33 U/L 06/11/2020 2:38 PM [facility] AST (SGOT) 21 1 - 32 U/L 06/11/2020 2:38 PM [facility] Alkaline Phosphatase 90 39 - 117 U/L 06/11/2020 2:38 PM [facility] Total Bilirubin 0.2 0.0 - 1.2 mg/dL 06/11/2020 2:38 PM [facility] eGFR Non Amer 97 >60 mL/min/1.7 3 06/11/2020 2:38 PM [facility] Globulin 3.0 gm/dL 06/11/2020 2:38 PM [facility] A/G Ratio 1.4 g/dL 06/11/2020 2:38 PM EST [facility] BUN/Creatinine Ratio 12.9 7.0 - 25.0 06/11/2020 2:38 PM EST [facility] Anion Gap 11.2 5.0 - 15.0 mmol/L 06/11/2020 2:38 PM EST [facility] Blood Venipuncture / Unknown 06/11/2020 9:19 AM EST 06/11/2020 9:19 AM EST [facility] - 06/11/2020 2:38 PM EST GFR Normal >60 Chronic Kidney Disease <60 Kidney Failure <15 Martha Naik MD LAB BLOOD ORDERABLES Final Res ult Performing Organization Address [facility] [[email or web address]] Co de Phone Number [facility]
[address] [place] [address], * T4, Free (06/11/2020 9:19 AM EST) Free T4 1.05 0.93 - 1.70 ng/dL 06/11/2020 2:42 PM EST [facility] Blood Venipuncture / Unknown 06/11/2020 9:19 AM EST 06/11/2020 9:19 AM EST [facility] - 06/11/2020 2:42 PM EST Results may be falsely increased if patient taking Biotin. Martha Naik MD LAB BLOOD ORDERABLES Final Res ult Performing Organization Address [facility]/ZIP Co de Phone Number [facility]
[address] [place] [address], [place] [phone] * TSH (06/11/2020 9:19 AM EST) TSH 1.670 0.270 - 4.200 uIU/mL 06/11/2020 2:42 PM EST [facility] Blood Venipuncture / Unknown 06/11/2020 9:19 AM EST 06/11/2020 9:19 AM EST Martha Naik MD LAB BLOOD ORDERABLES Final Res ult [facility]
[address] [place] [address], [place] [phone] * POC Glycosylated Hemoglobin (Hb A1C) (06/11/2020 8:26 AM EST) Hemoglobin A1C 8.0 % [facility] Lot Number [id number] [facility] Expiration Date 03/25/2022 [facility] Blood 06/11/2020 8:26 AM EST Martha Naik MD POINT OF CARE TEST ORDERABLES Final Result Performing Organization Address City/[facility] [[email or web address]] Co de Phone Number [facility]
[address] [place] [address], [place] [phone] * (ABNORMAL) POC Glucose, Blood (06/11/2020 8:25 AM EST) Glucose 181(A) 70 - 130 mg/dL Lot Number [id number] Expiration Date 12/24/2020 Blood 06/11/2020 8:25 AM EST Martha Naik MD POINT OF CARE TEST ORDERABLES Final Result documented in this encounter Visit Diagnoses Diagnosis Type 2 diabetes mellitus with hyperglycemia, without long-term current use of insulin- Primary Hyperthyroidism Thyrotoxicosis without mention of goiter or other cause, without mention of thyrotoxic crisis or storm documented in this encounter Care Teams Quartz Mounter Relationship Specialty Start Date End Date Maine Leblanc PA [address] [place], [place] [id number] PCP - General 09/25/15 03/05/21 documented as of this encounter
--- OUTSIDE RECORDS SUMMARY | 2024-06-26 16:06 | XMS_ITS | Encounter Summary ---
[facility] Address [address] [place] [address] Care Team Providers Care Carbon Coater Machine Operator Name Role Phone Yogi Abdul MD Primary Care Provider [phone] Encounter Details Date Type Department Care Team (Late st Contact Info) Description 04/20/2021 Telephone [facility] ENDOCRINOLOGY [address] [place] [phone] Martha Grajeda MD [address] [place], [place] [id number] Social History Tobacco Use Types Packs/Day Years [...] Telephone Encounter - Janessa Davenport MA - 04/21/2021 9:02 AM EDT Spoke with pt she stated she spoke with [employer], the ran some diagnostic on her pump, and it appearsto be working fine. She got hooked back up to it last night. She has an appt on 04/23 and feels she is fine until then. * Telephone Encounter - Janessa Davenport MA - 04/21/2021 8:55 AM EDT Attempted contact to see if issues with the Pump have resolved. Asked pt to return call, if we can help * Telephone Encounter - Janessa Davenport MA - 04/20/2021 11:26 AM EDT Returned pt call. LMOM advising t contact number on back of pump. Advised to call back if needs future help. * Telephone Encounter - Marilyn Christopher - 04/20/2021 11:10 AM EDT PATIENT IS HAVING AN ISSUE WITH HER PUMP AND WOULD LIKE A RETURN CALL REGARDING HOW SHE SHOULD BE DOING HER BOLUS. SHE HAS CURRENTLY TAKEN OFF HER PUMP documented in this encounter Plan of Treatment Not on file documented as of this encounter Visit Diagnoses Not on filedocumented in this encounter Care Teams Carbon Coater Machine Operator Relationship Specialty Start Date End Date Yogi Abdul MD [address] [place] [address] PCP - General Family Medicine 03/06/21 documented as of this encounter
--- OUTSIDE RECORDS SUMMARY | 2024-06-26 16:06 | XMS_ITS | Encounter Summary ---
[facility] Address [address] [place] [address] Care Team Providers Care Assistant Real Estate Manager Name Role Phone Maine Leblanc Primary Care Provide r Reason for Visit * Reason Comments Diabetes Follow Up Encounter Details Date Type Department Care Team (Late st Contact Info) Description 03/07/2020 11:45 AM EDT Office Visit [facility] ENDOCRINOLOGY [address] [place] [phone] Martha Grajeda MD [address] [place], [place] [phone] Type 2 diabetes mellitus with hyperglycemia, without long-term current use of insulin (Primary Dx) [...] Sign Reading Time Taken Comments Blood Pressure 122/80 03/07/2020 12:06 PM EDT Pulse 74 03/07/2020 12:06 PM EDT Temperature - - Respiratory Rate - - Oxygen Saturation 98% 03/07/2020 12:06 PM EDT Inhaled Oxygen Concentration - - Weight 133 kg (292 lb 14.4 oz) 03/07/2020 12:06 PM EDT Height 172.7 cm (5' 8 ) 03/07/2020 12:06 PM EDT Body Mass Index 44.54 03/07/2020 12:06 PM EDT documented in this encounter Patient Instructions * Patient Instructions* Martha Grajeda MD - 03/07/2020 11:45 AM EDT 12/07/19 Pat Murphy 1990 Results for orders placed or performed in visit on 03/07/20 POC Glucose Fingerstick Result Value Ref Range Glucose 243 (A) 70 - 130 mg/dL Lot Number [id number] Expiration Date 04/12/2020 POC Glycosylated Hemoglobin (Hb A1C) Result Value Ref Range Hemoglobin A1C 8.5 % Lot Number [id number] Expiration Date 09/17/2021 Continue metformin and glyburide. ADA General Goals: A1c: < 7% Fasting/before meal glucose: <150 mg/dL 2 Hour after meal glucoses: < 180 mg/dL Bedtime glucose:120-180 Lantus 38 units before bedtime Start Humalog 5 units with dinner Add correction insulin 1 units for every 50 points above 150. If after 2 weeks, before meal blood sugars are not lower than 150, call the office. If you are having frequent blood sugars lower than 70, call the office. Martha Grajeda MD documented in this encounter Progress Notes * Martha Grajeda MD - 03/07/2020 11:45 AM EDT Chief complaint Diabetes (Follow Up) Subjective Pat Murphy is a 29 y.o. female is here today for follow-up. Diabetes mellitus type 2 diagnosed 09/15/15. Reports having gestational DM with first ; took Glyburide during that time. Meds: prior to metformin ER 500 mg - 2 tablets bid with food. Glyburide 5 mg daily. During she required insulin Lantus and Humalog , which was discontinued after the delivery. Monitoring - she has noted that her glucose is higher, often close to 200. 266 is fasting numbers and 294- 325. We have started Lantus insulin and maximized the glyburide dose. She also started Dexcom and glucose data was reviewed and [...] of . Thyroid levels were tested with boiler room operator Cha Osorio and levels were normal off the medication. November 2018 sh ehad TSH 2.77 and low FT4, was started on levothyroxine 25 at that time and increased to 50mcg 01/23/19 by boiler room operator. She is currently taking 50 mcg levothyroxine, C/o heart palpitations, no tremors or anxiety, has some insomnia. Medications Current Outpatient Medications: ??? cetirizine (zyrTEC) 10 MG tablet, , Disp: , Rfl: ??? Continuous Blood Gluc Sensor (DEXCOM G6 SENSOR), 1 each Take As Directed., Disp: 3 each, Rfl: 11 ??? Continuous Blood Gluc Transmit (DEXCOM G6 TRANSMITTER) misc, 1 each Take As Directed., Disp: 1 each, Rfl: 3 ??? fluticasone (FLONASE) 50 MCG/ACT nasal spray, , Disp: , Rfl: ??? glyburide (DIAbeta) 5 MG tablet, Take 2 tablets twice a day, Disp: 360 tablet, Rfl: 3 ??? Insulin Glargine (LANTUS SOLOSTAR) 100 UNIT/ML injection pen, Inject 40 Units under the skin into the appropriate area as directed Every Night., Disp: 5 pen, Rfl: 6 ??? Insulin Pen Needle (PEN NEEDLES) 32G X 4 MM misc, 1 each Daily., Disp: 90 each, Rfl: 1 ??? insulin degludec (TRESIBA FLEXTOUCH) 100 UNIT/ML solution pen-injector injection, Inject 40 Units under the skin into the appropriate area as directed Daily., Disp: 5 pen, Rfl: 11 ??? Insulin Lispro, 1 Unit Dial, (HumaLOG KwikPen) 100 UNIT/ML solution pen- injector, Inject 10 Units under the skin into the appropriate area as directed Daily With Dinner., Disp: 5 pen, Rfl: 6 ??? metFORMIN ER (GLUCOPHAGE-XR) 500 MG 24 hr tablet, Take 2 tablets by mouth Daily With Breakfast., Disp: 60 tablet, Rfl: 11 PMH The following portions of the patient's history were reviewed and updated as appropriate: allergies, current medications, past family history, past medical history, past social history, past surgicalhistory and problem list. Review of systems Review of Systems Constitutional: Positive for fatigue. Cardiovascular: Positive for palpitations (intermittently ). Psychiatric/Behavioral: Positive for sleep disturbance. All other systems reviewed and are negative. Physical exam Objective Blood pressure 122/80, pulse 74, height 172.7 cm (68 ), weight 133 kg (292 lb 14.4 oz), SpO2 98 %, not currently . Physical Exam Constitutional: She is oriented to person, place, and time. She appears well- developed and well-nourished. HENT: Head: Normocephalic and atraumatic. Eyes: Conjunctivae are normal. Neck: No thyroid mass and no thyromegaly present. Pulmonary/Chest: No respiratory distress. Neurological: She is alert and oriented to person, place, and time. Psychiatric: She has a normal mood and affect. Thought content normal. Vitals reviewed. LABS AND IMAGING Office Visit on 03/07/2020 Component Date Value Ref Range Status ??? Glucose 03/07/2020 243* 70 - 130 mg/dL Final ??? Lot Number 03/07/2020 [id number] Final ??? Expiration Date 03/07/2020 04/12/2020 Final ??? Hemoglobin A1C 03/07/2020 8.5 % Final ??? Lot Number 03/07/2020 [id number] Final ??? Expiration Date 03/07/2020 09/17/2021 Final Assessment Assessment/Plan Problem List Items Addressed This Visit Endocrine Diabetes mellitus ([facility]) - Primary Relevant Medications glyburide (DIAbeta) 5 MG tablet Insulin Glargine (LANTUS SOLOSTAR) 100 UNIT/ML injection pen metFORMIN ER (GLUCOPHAGE-XR) 500 MG 24 hr tablet Insulin Lispro, 1 Unit Dial, (HumaLOG KwikPen) 100 UNIT/ML solution pen-injector insulin degludec (TRESIBA FLEXTOUCH) 100 UNIT/ML solution pen-injector injection Other Relevant Orders POC Glucose Fingerstick (Completed) POC Glycosylated Hemoglobin (Hb A1C) (Completed) Plan Continue metformin and glyburide, Increase Lantus to 38 units and start prandial insulin Humalog 5 units with larger meal (dinner). Insulin titration instructions given. I have reviewed Dexcom data and her nighttime glucose is close to goal, but postprandial surge is significant despite maximum dose of glyburide. I have given patient a samples and coupon of Tresiba. Insulin titration instructions provided and hypoglycemia precautions reviewed. Patient will continue to monitor glucose twice a day and call the office if the numbers are still too high or if there is hypoglycemia. Follow-up in 3 months 16 of 28 visit time spent for counseling, review of pump download and instructions on prandial insulin administration documented in this encounter Plan of Treatment Not on file documented as of this encounter Procedures Procedure Name Priority Date/Time Associated Diagnosis Comments POCT GLYCOSYLATED HEMOGLOBIN (HGB A1C) Routine 03/07/2020 12:13 PM EDT Type 2 diabetes mellitus with hyperglycemia, without long-term current use of insulin POCT GLUCOSE FINGERSTICK Routine 03/07/2020 12:12 PM EDT Type 2 diabetes mellitus with hyperglycemia, without long-term current use of insulin documented in this encounter Results * POC Glycosylated Hemoglobin (Hb A1C) (03/07/2020 12:13 PM EDT) Hemoglobin A1C 8.5 % [facility] Lot Number [id number] [facility] Expiration Date 09/17/2021 [facility] Blood 03/07/2020 12:1 3 PM EDT us Martha Naik MD POINT OF CARE TEST ORDERABLES Final Result [facility]
[address] [place] [address], * (ABNORMAL) POC Glucose Fingerstick (03/07/2020 12:12 PM EDT) Glucose 243(A) 70 - 130 mg/dL [facility] Lot Number [id number] [facility] Expiration Date 04/12/2020 [facility] Blood 03/07/2020 12:1 2 PM EDT us Martha Naik MD POINT OF CARE TEST ORDERABLES Final Result [facility]
[address] [place] [address], documented in this encounter Visit Diagnoses Diagnosis Type 2 diabetes mellitus with hyperglycemia, without long-term current use of insulin- Primary documented in this encounter Care Teams Assistant Real Estate Manager Relationship Specialty Start Date End Date Maine Leblanc PA [address] [place] [address] PCP - General 09/25/15 03/05/21 documented as of this encounter
--- OUTSIDE RECORDS SUMMARY | 2024-06-26 16:06 | XMS_ITS | Encounter Summary ---
[facility] Address [address] [place] [address] Care Team Providers Care Home Performance Laborer Name Role Phone Maine Leblanc Primary Care Provide r Reason for Visit * Reason Onset Date Comments Med Refill Med Refill 01/27/2021 Encounter Details Date Type Department Care Team (Late st Contact Info) Description 01/24/2021 Refill [facility] ENDOCRINOLOGY [address] [place] [phone] Martha Grajeda MD [address] [place], [place] [id number] Social History Tobacco Use Types Packs/Day Years [...] Telephone Encounter - Janessa Davenport MA - 01/27/2021 7:[address] Caruso sent Sensors with 11 refills was unable to DC that one due to Duplicate documented in this encounter Plan of Treatment Not on file documented as of this encounter Visit Diagnoses Not on filedocumented in this encounter Care Teams Home Performance Laborer Relationship Specialty Start Date End Date Maine Leblanc PA [address] [place] [address] PCP - General 09/25/15 03/05/21 documented as of this encounter
--- OUTSIDE RECORDS SUMMARY | 2024-06-26 16:06 | XMS_ITS | Encounter Summary ---
[facility] Address [address] [place] [address] Care Team Providers Care Automation Controls Specialist Name Role Phone Maine Leblanc Primary Care Provide r Reason for Visit * Reason Onset Date Comments Advice Only 11/18/2020 Encounter Details Date Type Department Care Team (Late st Contact Info) Description 11/18/2020 Telephone [facility] ENDOCRINOLOGY [address] [place] [phone] Martha Grajeda MD [address] [place] [address] Advice Only Social History Tobacco Use Types Packs/Day Years [...] encounter Miscellaneous Notes * Telephone Encounter - Felicia Donahue MA - 11/21/2020 4:33 PM EDT Pt notified and will call if BS don't go down. States she is getting a pump soon and hopes that will help. * Telephone Encounter - Martha Grajeda MD - 11/21/2020 1:03 PM EDT If glucose is over 200 all the time, she should increase both basal insulin and incresae Humalog with meals (by 2-3 units each dose). If only daytime glucose is high, then keep basal insulin the sameand increase Humalog only. * Telephone Encounter - Felicia Donahue MA - 11/20/2020 9:51 AM EDT Pt notified. States glucose has been running in the upper 200's, lower 300's. * Telephone Encounter - Martha Grajeda MD - 11/19/2020 4:03 PM EDT Patient had labs done 11/11 and her symptoms are not related to hyperthyroidism. I would continue with GI workup. Does she have a problem with high glucose and n eeds insulin adjusted? With dehydration or infection high glucose could be a problem. Please let me know if this is an issue. * Telephone Encounter - Analilia Issa MA - 11/18/2020 10:[address] Grajeda, please advise. Thank you. KRISTY: 11/11/20 DM2 * Telephone Encounter - Grecia Love RegSched Rep - 11/18/2020 8:32 AM EDT Pt called states she talked to her Primary care doctor last night she stated her primary told her she should reach out to Dr Grajeda Pt is having some diarrhea Black stools with some discharge pt is feeling nausea and cramping as well pt states this has been going on for a couple of days. Pt last seen 11/11/20 pt net appt 03/06/21. Please notify pt. documented in this encounter Plan of Treatment Not on file documented as of this encounter Visit Diagnoses Not on filedocumented in this encounter Care Teams Automation Controls Specialist Relationship Specialty Start Date End Date Maine Leblanc PA [address] [place] [address] PCP - General 09/25/15 03/05/21 documented as of this encounter
--- OUTSIDE RECORDS SUMMARY | 2024-06-26 16:06 | XMS_ITS | Encounter Summary ---
[facility] Address [address] [place] [address] Care Team Providers Care Concrete Craftsman Name Role Phone Maine Leblanc Primary Care Provide r Reason for Visit * Reason Onset Date Comments Med Refill 11/25/2020 Med Refill 11/26/2020 Encounter Details Date Type Department Care Team (Late st Contact Info) Description 11/25/2020 Refill [facility] ENDOCRINOLOGY [address] [facility] [address] [place] [phone] Martha Grajeda MD [address] [address] Social History Tobacco Use Types Packs/Day Years [...] Telephone Encounter - Janessa Davenport MA - 11/25/2020 4:03 PM EDT Patient will be starting Insulin Pump training on Tuesday with Linda she has requested Insulin for patient documented in this encounter Plan of Treatment Not on file documented as of this encounter Visit Diagnoses Not on filedocumented in this encounter Care Teams Concrete Craftsman Relationship Specialty Start Date End Date Maine Leblanc PA [address] [place], [place] [phone] PCP - General 09/25/15 03/05/21 documented as of this encounter
--- OUTSIDE RECORDS SUMMARY | 2024-06-26 16:06 | XMS_ITS | Encounter Summary ---
[facility] Address [address] [place] [address] Care Team Providers Care Concrete Polisher Name Role Phone Maine Leblanc Primary Care Provide r Encounter Details Date Type Department Care Team (Late st Contact Info) Description 09/02/2020 Telephone [facility] ENDOCRINOLOGY [address] [place] [address] Martha Grajeda MD [address] [place] [address] Social History Tobacco Use Types Packs/Day Years [...] Telephone Encounter - Janessa Davenport MA - 09/05/2020 11:53 AM EST Left detailed message on PT VM advising of message below * Telephone Encounter - Martha Grajeda MD - 09/05/2020 10:57 AM EST She need to be evaluated by PCP. One sided hand tingling is not diabetes sx. * Telephone Encounter - Janessa Davenport MA - 09/02/2020 10:32 AM EST Last Ov 06/11/20 Future appt 11/11/20 Related to DX or have her contact PCP?? * Telephone Encounter - Sherine Stewart - 09/02/2020 10:12 AM EST Pt called to say that her left hand has been swelling and tingling It takes a long time to stop tingling Please call pt [phone] documented in this encounter Plan of Treatment Not on file documented as of this encounter Visit Diagnoses Not on filedocumented in this encounter Care Teams Concrete Polisher Relationship Specialty Start Date End Date Maine Leblanc PA [address] [place] [address] PCP - General 09/25/15 03/05/21 documented as of this encounter
--- OUTSIDE RECORDS SUMMARY | 2024-06-26 16:06 | XMS_ITS | Encounter Summary ---
[facility] Address [address] [place] [address] Care Team Providers Care Earth Auger Operator Name Role Phone Yogi Abdul MD Primary Care Provider [phone] Encounter Details Date Type Department Care Team (Late st Contact Info) Description 10/05/2021 Telephone [facility] NEUROLOGY [address] [phone] Rosemarie Patricia, BLANCA [address] [place] [phone] Social History Tobacco Use Types Packs/Day Years [...] Telephone Encounter - Francoise Graham MA - 10/05/2021 2:53 PM EDT Patient informed of normal lab * Telephone Encounter - Francoise Graham MA - 10/05/2021 2:53 PM EDT ----- Message from Rosemarie Patricia APRN sent at 10/02/2021 2:03 PM EST ----- Please let patient know her vitamin B6 level is in normal range documented in this encounter Plan of Treatment Not on file documented as of this encounter Visit Diagnoses Not on filedocumented in this encounter Care Teams Earth Auger Operator Relationship Specialty Start Date End Date Yogi Abdul MD [address] [place] [address] PCP - General Family Medicine 03/06/21 documented as of this encounter
--- OUTSIDE RECORDS SUMMARY | 2024-06-26 16:06 | XMS_ITS | Encounter Summary ---
Author Organization [facility] Address [address] [place] [address] Care Team Providers Care Fuel Quality Tech Name Role Phone Yogi Abdul MD Primary Care Provider [phone] Reason for Visit * Reason Comments Diabetes Follow UP Encounter Details Date Type Department Care Team (Late st Contact Info) Description 03/06/2021 9:45 AM EDT Office Visit [facility] ENDOCRINOLOGY [address] [place] [phone] Martha Grajeda MD [address] [place], [place] [id number] Type 2 diabetes mellitus with hyperglycemia, without long-term current use of insulin (Primary Dx); Hyperthyroidism; Insulin pump titration Social History Tobacco Use [...] Sign Reading Time Taken Comments Blood Pressure 124/78 03/06/2021 9:48 AM EDT Pulse 71 03/06/2021 9:48 AM EDT Temperature - - Respiratory Rate - - Oxygen Saturation 99% 03/06/2021 9:48 AM EDT Inhaled Oxygen Concentration - - Weight 125 kg (275 lb 1.6 oz) 03/06/2021 9:48 AM EDT Height 172.7 cm (5' 8 ) 03/06/2021 9:48 AM EDT Body Mass Index 41.83 03/06/2021 9:48 AM EDT documented in this encounter Progress Notes * Martha Grajeda MD - 03/06/2021 9:45 AM EDT Chief complaint Diabetes (Follow UP) Subjective Pat Murphy is a 30 y.o. [...] several months and received levothyroxine. TFT remained stable Medications Current Outpatient Medications: ??? busPIRone (BUSPAR) [...] misc, USE DIRECTED, Disp: 1 each, Rfl: 1 ??? escitalopram (LEXAPRO) 20 MG tablet, Take 20 mg by mouth Daily., Disp: , Rfl: ??? fluticasone (FLONASE) 50 MCG/ACT nasal spray, , Disp: , Rfl: ??? HumaLOG 100 UNIT/ML injection, 105 units daily via Insulin Pump, Disp: 40 mL, Rfl: 5 ??? Insulin Pen Needle (Pen Trona) 32G X 4 MM misc, 1 each Daily. Use 1 each 4 times daily with Insulin pen, Disp: 200 each, Rfl: 3 ??? metFORMIN ER (GLUCOPHAGE-XR) 500 MG 24 hr tablet, Take 2 tablets by mouth Daily With Breakfast., Disp: 60 tablet, Rfl: 11 ??? oxybutynin XL (DITROPAN-XL) 10 MG 24 hr tablet, Take 10 mg by mouth Daily., Disp: , Rfl: ??? Vraylar 1.5 MG capsule capsule, Take 1.5 mg by mouth Daily., Disp: , Rfl: Review of systems Review of Systems Constitutional: Positive for fatigue. All other systems reviewed and are negative. Physical exam Objective Blood pressure 124/78, pulse 71, height 172.7 cm (68 ), weight 125 kg (275 lb 1.6 oz), SpO2 99 %, not currently . Body mass index is 41.83 kg/m??. Physical Exam Constitutional: She is oriented [...] reviewed. LABS AND IMAGING Office Visit on 03/06/2021 Component Date Value Ref Range Status ??? Hemoglobin A1C 03/06/2021 6.1 % Final ??? Lot Number 03/06/2021 [id number] Final ??? Expiration Date 03/06/2021 10/31/2022 Final ??? Glucose 03/06/2021 137* 70 - 130 mg/dL Final ??? Lot Number 03/06/2021 [id number] Final ??? Expiration Date 03/06/2021 08/29/2021 Final Assessment Assessment/Plan Problems Addressed this Visit Other Diabetes mellitus ([facility]) - Primary Relevant Medications metFORMIN ER (GLUCOPHAGE-XR) 500 MG 24 hr tablet Other Relevant Orders POC Glycosylated Hemoglobin (Hb A1C) (Completed) POC Glucose, Blood (Completed) TSH T4, Free Comprehensive Metabolic Panel Hyperthyroidism Relevant Orders TSH T4, Free Insulin pump titration Diagnoses Codes Comments Type 2 diabetes mellitus with hyperglycemia, without long-term current use of insulin ([facility]) - Primary ICD-10-CM: E11.65 ICD-9-CM: 250.00, 790.29 Hyperthyroidism ICD-10-CM: E05.90 ICD-9-CM: 242.90 Insulin pump titration ICD-10-CM: Z46.81 ICD-9-CM: V53.91 Plan Continue insulin via T-slim insulin pump. Dexcom and insulin pump data analyzed. The glucose is 87% in range, 13 % hyperglycemia. No hypoglycemia events. Discussed sites option, she feels that scar tissue and stretch ramirez prevent from good absorption.. Hypoglycemia precautions reviewed. Recheck thyroid function. No symptoms. Labs today Follow-up in 3 months documented in this encounter Plan of Treatment Not on file documented as of this encounter Procedures Procedure Name Priority Date/Time Associated Diagnosis Comments TSH Routine 03/06/2021 10:25 AM EDT Type 2 diabetes mellitus with hyperglycemia, without long-term current use of insulin Hyperthyroidism T4, FREE Routine 03/06/2021 10:25 AM EDT Type 2 diabetes mellitus with hyperglycemia, without long-term current use of insulin Hyperthyroidism COMPREHENSIVE METABOLIC PANEL Routine 03/06/2021 10:25 AM EDT Type 2 diabetes mellitus with hyperglycemia, without long-term current use of insulin POCT GLUCOSE, BLD (NON STRIP) Routine 03/06/2021 9:54 AM EDT Type 2 diabetes mellitus with hyperglycemia, without long-term current use of insulin POCT GLYCOSYLATED HEMOGLOBIN (HGB A1C) Routine 03/06/2021 9:54 AM EDT Type 2 diabetes mellitus with hyperglycemia, without long-term current use of insulin documented in this encounter Results * (ABNORMAL) Comprehensive Metabolic Panel (03/06/2021 10:25 AM EDT) Glucose 105(H) 65 - 99 mg/dL 03/06/2021 6:47 PM [facility] BUN 10 6 - 20 mg/dL 03/06/2021 6:47 PM [facility] Creatinine 0.73 0.57 - 1.00 mg/dL 03/06/2021 6:47 PM [facility] Sodium 138 136 - 145 mmol/L 03/06/2021 6:47 PM [facility] Potassium 4.1 3.5 - 5.2 mmol/L 03/06/2021 6:47 PM [facility] Chloride 103 98 - 107 mmol/L 03/06/2021 6:47 PM [facility] CO2 25.1 22.0 - 29.0 mmol/L 03/06/2021 6:47 PM [facility] Calcium 8.7 8.6 - 10.5 mg/dL 03/06/2021 6:47 PM [facility] Total Protein 7.4 6.0 - 8.5 g/dL 03/06/2021 6:47 PM [facility] Albumin 4.40 3.50 - 5.20 g/dL 03/06/2021 6:47 PM [facility] ALT (SGPT) 23 1 - 33 U/L 03/06/2021 6:47 PM [facility] AST (SGOT) 18 1 - 32 U/L 03/06/2021 6:47 PM [facility] Alkaline Phosphatase 99 39 - 117 U/L 03/06/2021 6:47 PM [facility] Total Bilirubin 0.3 0.0 - 1.2 mg/dL 03/06/2021 6:47 PM [facility] eGFR Non Amer 92 >60 mL/min/1.7 3 03/06/2021 6:47 PM [facility] Globulin 3.0 gm/dL 03/06/2021 6:47 PM [facility] A/G Ratio 1.5 g/dL 03/06/2021 6:47 PM EDT [facility] BUN/Creatinine Ratio 13.7 7.0 - 25.0 03/06/2021 6:47 PM EDT [facility] Anion Gap 9.9 5.0 - 15.0 mmol/L 03/06/2021 6:47 PM EDT [facility] Blood Venipuncture / Unknown 03/06/2021 10:25 AM EDT 03/06/2021 10:25 AM EDT [facility] - 03/06/2021 6:47 PM EDT GFR Normal >60 Chronic Kidney Disease <60 Kidney Failure <15 Martha Naik MD LAB BLOOD ORDERABLES Final Res ult [facility]
[address] [place] [address], * T4, Free (03/06/2021 10:25 AM EDT) Free T4 1.01 0.93 - 1.70 ng/dL 03/06/2021 6:58 PM EDT [facility] Blood Venipuncture / Unknown 03/06/2021 10:25 AM EDT 03/06/2021 10:25 AM EDT [facility] - 03/06/2021 6:58 PM EDT Results may be falsely increased if patient taking Biotin. Martha Naik MD LAB BLOOD ORDERABLES Final Res ult [facility]
[address] [place] [address], * TSH (03/06/2021 10:25 AM EDT) TSH 3.600 0.270 - 4.200 uIU/mL 03/06/2021 6:58 PM EDT [facility] Blood Venipuncture / Unknown 03/06/2021 10:25 AM EDT 03/06/2021 10:25 AM EDT Martha Naik MD LAB BLOOD ORDERABLES Final Res ult [facility]
[address] [place] [address], [place] [phone] * (ABNORMAL) POC Glucose, Blood (03/06/2021 9:54 AM EDT) Glucose 137(A) 70 - 130 mg/dL Lot Number [id number] Expiration Date 08/29/2021 Blood 03/06/2021 9:54 AM EDT Martha Naik MD POINT OF CARE TEST ORDERABLES Final Result * POC Glycosylated Hemoglobin (Hb A1C) (03/06/2021 9:54 AM EDT) Hemoglobin A1C 6.1 % [facility] Lot Number [id number] [facility] Expiration Date 10/31/2022 [facility] Blood 03/06/2021 9:54 AM EDT Martha Naik MD POINT OF CARE TEST ORDERABLES Final Result Performing Organization Address City/[facility]/ZIP Co de Phone Number [facility]
[address] [place] [address], [place] [phone] documented in this encounter Visit Diagnoses Diagnosis Type 2 diabetes mellitus with hyperglycemia, without long-term current use of insulin- Primary Hyperthyroidism Thyrotoxicosis without mention of goiter or other cause, without mention of thyrotoxic crisis or storm Insulin pump titration Fitting and adjustment of insulin pump documented in this encounter Care Teams Fuel Quality Tech Relationship Specialty Start Date End Date Yogi Abdul MD [facility] [place] [address] PCP - General Family Medicine 03/06/21 documented as of this encounter
--- OUTSIDE RECORDS SUMMARY | 2024-06-26 16:06 | XMS_ITS | Encounter Summary ---
[facility] Address [address] [place] [address] Care Team Providers Care Finisher Denture Name Role Phone Yogi Abdul MD Primary Care Provider [phone] Encounter Details Date Type Department Care Team (Late st Contact Info) Description 09/17/2021 11:35 AM EST Lab [facility] DRAW [facility] [address] [facility] [address] [place] [address] Social History Tobacco Use Types Packs/Day Years [...] on filedocumented in this encounter Care Teams Finisher Denture Relationship Specialty Start Date End Date Yogi Abdul MD [address] [place] [address] PCP - General Family Medicine 03/06/21 documented as of this encounter
--- OUTSIDE RECORDS SUMMARY | 2024-06-26 16:06 | XMS_ITS | Encounter Summary ---
[facility] Address [address] [place] [address] Care Team Providers Care Website Admin Name Role Phone Maine Leblanc Primary Care Provide r Reason for Visit * Reason Onset Date Comments Advice Only 11/12/2020 Encounter Details Date Type Department Care Team (Late st Contact Info) Description 11/12/2020 Telephone [facility] ENDOCRINOLOGY [address] [place] [phone] Martha Grajeda MD [address] [place], [place] [phone] Advice Only Social History Tobacco Use Types [...] Telephone Encounter - Janessa Davenport MA - 11/12/2020 9:36 AM EDT Faxed copy of this to [facility] for advisement * Telephone Encounter - Harvey Toney RegSched Rep - 11/12/2020 8:40 AM EDT PT CALLED STATING THAT HER INSURANCE WILL NOT COVER THE TSLIM PUMP. HOWEVER HER INSURANCE ENCOURAGED HER TO CONTACT US TO SEE IF A MEDICAL COMPANY WOULD COVER IT. PLEASE LOOK INTO THIS AND REACH OUT TO PT. THANK YOU documented in this encounter Plan of Treatment Not on file documented as of this encounter Visit Diagnoses Not on filedocumented in this encounter Care Teams Website Admin Relationship Specialty Start Date End Date Maine Leblanc PA [address] [place] [address] PCP - General 09/25/15 03/05/21 documented as of this encounter
--- OUTSIDE RECORDS SUMMARY | 2024-06-26 16:06 | XMS_ITS | Encounter Summary ---
[facility] Address [address] [place] [address] Care Team Providers Care Interior Design Teacher Name Role Phone Yogi Abdul MD Primary Care Provider [phone] Reason for Visit * Reason Comments Diabetes Follow Up: Has been having trouble with high blood sugars Encounter Details Date Type Department Care Team (Late st Contact Info) Description 04/23/2021 9:30 AM EDT Office Visit [facility] ENDOCRINOLOGY [address] [place] [address] Martha Grajeda MD [address] [place] [address] Type 2 diabetes mellitus with [...] Sign Reading Time Taken Comments Blood Pressure 122/82 04/23/2021 9:34 AM EDT Pulse 74 04/23/2021 9:34 AM EDT Temperature - - Respiratory Rate - - Oxygen Saturation 98% 04/23/2021 9:34 AM EDT Inhaled Oxygen Concentration - - Weight 125 kg (276 lb 8 oz) 04/23/2021 9:34 AM E DT Height 172.7 cm (5' 8 ) 04/23/2021 9:34 AM EDT Body Mass Index 42.04 04/23/2021 9:34 AM EDT documented in this encounter Progress Notes * Martha Grajeda MD - 04/23/2021 9:30 AM EDT Chief complaint Diabetes (Follow Up: Has been having trouble with high blood sugars ) Subjective Pat Murphy is a 31 y.o. [...] Disp: 40 mL, Rfl: 5 ??? Insulin Lispro, 0.5 Unit Dial, (HUMALOG) 100 UNIT/ML solution pen-injector, Humalog KwikPen Insulin, Disp: , Rfl: ??? Insulin Pen Needle (Pen [place]) 32G X 4 MM misc, 1 each [...] Rfl: ??? traZODone (DESYREL) 50 MG tablet, TAKE 1 2 TO 1 (ONE HALF TO ONE) TABLET BY MOUTH AT BEDTIME ASNEEDED FOR SLEEP, Disp: , Rfl: ??? Vraylar 1.5 MG capsule capsule, Take 1.5 mg by mouth Daily., Disp: , Rfl: Review of systems Review of Systems Constitutional: Positive for fatigue. All other systems reviewed and are negative. Physical exam Objective Blood pressure 122/82, pulse 74, height 172.7 cm (68 ), weight 125 kg (276 lb 8 oz), SpO2 98 %, notcurrently . Body mass index is 42.04 kg/m??. Physical Exam Constitutional: She is oriented [...] reviewed. LABS AND IMAGING Office Visit on 04/23/2021 Component Date Value Ref Range Status ??? Glucose 04/23/2021 115 70 - 130 mg/dL Final ??? Lot Number 04/23/2021 [id number] Final ??? Expiration Date 04/23/2021 11/05/2021 Final Assessment Assessment/Plan Problems Addressed this Visit Other Diabetes mellitus ([facility]) - Primary Relevant Medications Insulin Lispro, 0.5 Unit Dial, (HUMALOG) 100 UNIT/ML solution pen-injector Other Relevant Orders POC Glucose, Blood (Completed) Hyperthyroidism Diagnoses Codes Comments Type 2 diabetes mellitus with hyperglycemia, without long-term current use of insulin ([facility]) - Primary ICD-10-CM: E11.65 ICD-9-CM: 250.00, 790.29 Hyperthyroidism ICD-10-CM: E05.90 ICD-9-CM: 242.90 Plan Continue insulin via T-slim insulin pump. Dexcom and insulin pump data analyzed. Patient has 80% of the time in good range, no significant hypoglycemia. Thyroid function was normal on recent labs. Follow-up in 3 months documented in this encounter Plan of Treatment Not on file documented as of this encounter Procedures Procedure Name Priority Date/Time Associated Diagnosis Comments POCT GLUCOSE, BLD (NON STRIP) Routine 04/23/2021 9:39 AM EDT Type 2 diabetes mellitus with hyperglycemia, without long-term current use of insulin documented in this encounter Results * POC Glucose, Blood (04/23/2021 9:39 AM EDT) Glucose 115 70 - 130 mg/dL Lot Number [id number] Expiration Date 11/05/2021 Blood 04/23/2021 9:39 AM EDT Martha Naik MD POINT OF CARE TEST ORDERABLES Final Result documented in this encounter Visit Diagnoses Diagnosis Type 2 diabetes mellitus with hyperglycemia, without long-term current use of insulin- Primary Hyperthyroidism Thyrotoxicosis without mention of goiter or other cause, without mention of thyrotoxic crisis or storm documented in this encounter Care Teams Interior Design Teacher Relationship Specialty Start Date End Date Yogi Abdul MD [address] [place] [address] PCP - General Family Medicine 03/06/21 documented as of this encounter
--- OUTSIDE RECORDS SUMMARY | 2024-06-26 16:06 | XMS_ITS | Encounter Summary ---
[facility] Address [address] [place] [address] Care Team Providers Care Medical Collections Specialist Name Role Phone Maine Leblanc Primary Care Provide r Reason for Visit * Reason Onset Date Comments Med Refill 08/13/2020 Encounter Details Date Type Department Care Team (Late st Contact Info) Description 08/13/2020 Refill [facility] ENDOCRINOLOGY [address] [place] [phone] Martha Merino MD [address] [place] [address] Social History Tobacco Use Types Packs/Day [...] Telephone Encounter - Janessa Davenport MA - 08/13/2020 4:43 PM EST Please schedule patient for 11/11 at 2:[address] merino request Thank you * Telephone Encounter - Martha Merino MD - 08/13/2020 4:00 PM EST Please Schedule her In 3 months - November 11 at 2:15 pm for instance * Telephone Encounter - Janessa Davenport MA - 08/13/2020 2:27 PM EST Last OV 06/13/20 No Future appt scheduled * Telephone Encounter - Grecia Love RegSched Rep - 08/13/2020 1:44 PM EST Pt called needs a refill on Tresiba flextouch 100 unit. Pt states she has misplaced the prescription. Pt last seen 06/11/20 pt has no upcoming appt scheduled. documented in this encounter Plan of Treatment Not on file documented as of this encounter Visit Diagnoses Not on filedocumented in this encounter Care Teams Medical Collections Specialist Relationship Specialty Start Date End Date Maine Leblanc PA [address] [place] [id number] PCP - General 09/25/15 03/05/21 documented as of this encounter
--- OUTSIDE RECORDS SUMMARY | 2024-06-26 16:06 | XMS_ITS | Encounter Summary ---
[facility] [address] [place] [address] Care Team Providers Care Vessel Welder Name Role Phone Maine Leblanc Primary Care Provide r Encounter Details Date Type Department Care Team (Late st Contact Info) Description 08/14/[address] [facility] ENDOCRINOLOGY [address] [place] [phone] Martha Grajeda MD [address] [place] [address] Social History Tobacco Use Types Packs/Day Years [...] Telephone Encounter - Janessa Davenport MA - 08/14/2020 3:21 PM EST Returned patient call. She asked that I mail out a new discount card I placed in it out going mail today * Telephone Encounter - Lin Chawla - 08/14/2020 2:32 PM EST PATIENT LOST HER DISCOUNT CARD FOR HER INSULIN (TRESHIBA). SHE IS CALLING TO SEE IF WE CAN GET HER ANOTHER DISCOUNT CARD FOR THIS MEDICATION. PHONE NUMBER IS [phone] documented in this encounter Plan of Treatment Not on file documented as of this encounter Visit Diagnoses Not on filedocumented in this encounter Care Teams Vessel Welder Relationship Specialty Start Date End Date Maine Leblanc PA [address] [place] [address] PCP - General 09/25/15 03/05/21 documented as of this encounter
--- OUTSIDE RECORDS SUMMARY | 2024-06-26 16:06 | XMS_ITS | Encounter Summary ---
[facility] Organization [facility] Address [address] [place] [address] Care Team Providers Care Corrections Identification Technician Name Role Phone Yogi Abdul MD Primary Care Provider [phone] Reason for Visit * Reason Onset Date Comments Med Refill Med Refill 06/25/2021 Encounter Details Date Type Department Care Team (Late st Contact Info) Description 06/19/2021 Refill [facility]OCR[facility]OLOG[facility] [address] [place] [phone] Martha Grajeda MD [address] [place] [address] Social History Tobacco Use Types [...] Progress Notes * Malia Davenport MA - 06/25/2021 10:08 AM ESTAddended by: MALIA DAVENPORT on: 06/25/2021 10:08 AM Modules accepted: Orders documented in this encounter Miscellaneous Notes * Telephone Encounter - Malia Davenport MA - 06/25/2021 10:06 AM EST Attempted to contact [facility] was on hold for over 15 minutes., will change the RX to reflect Daily * Telephone Encounter - Jayna Kauffman DO - 06/25/2021 10:05 AM EST No worries ;) * Telephone Encounter - Malia Davenport MA - 06/25/2021 10:01 AM EST You are correct, sorry about that, 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 * Telephone Encounter - Malia Davenport MA - 06/25/2021 9:30 AM EST This was sent to [facility]?? * Telephone Encounter - Grecia Love RegSched Rep - 06/25/2021 8:52 AM EST [facility] pharmacy called needing clarification on Humalog 100 unit/mL injection pen. Sig: use 105 units via insulin pump is this daily or what should it be. Please contact pharmacy @ [phone]. * Telephone Encounter - Analilia Mckeon MA - 06/22/2021 9:16 AM EST Last office visit 04/23/2021. Follow up scheduled for 09/17/2021. documented in this encounter Plan of Treatment Not on file documented as of this encounter Visit Diagnoses Not on filedocumented in this encounter Care Teams Corrections Identification Technician Relationship Specialty Start Date End Date Yogi Abdul MD [address] [place] [address] PCP - General Family Medicine 03/06/21 documented as of this encounter
--- OUTSIDE RECORDS SUMMARY | 2024-06-26 16:06 | XMS_ITS | Encounter Summary ---
[facility] [address] [place] [address] Care Team Providers Care Manager Monitoring Name Role Phone Yogi Abdul MD Primary Care Provider [phone] Reason for Visit * Reason Onset Date Comments Advice Only 08/14/2021 Encounter Details Date Type Department Care Team (Late st Contact Info) Description 08/14/2021 Telephone [facility] ENDOCRINOLOG[facility] [address] [place] [phone] Martha Grajeda MD [address] [place] [address] Advice Only Social History Tobacco [...] Telephone Encounter - Janessa Davenport MA - 08/18/2021 8:48 AM EST Spoke with pt, she stated she has not see Neurology, or her PCP for this. She is agreeable to your plan. Please se referral * Telephone Encounter - Martha Grajeda MD - 08/17/2021 9:30 AM EST With her normal A1C I am worried that the symptoms are not diabetic neuropathy. Did she see the neurologist or had any initial tests to evaluate? I can order nerve conduction study to start the evaluation and can send neurology referral. * Telephone Encounter - Janessa Davenport MA - 08/14/2021 1:57 PM EST Returned pt call, she stated that the tingling and numbness has gotten worse since last visit. Her BS were acting up and it started progressively continuing. Her BS have stabilized, but the numbness is worse. At first she thought it might be due to the cold weather, but seems to be happening all the time, now. She does have an up coming appt on 09/17/21 * Telephone Encounter - Harvey Toney RegSched Rep - 08/14/2021 1:39 PM EST PT CALLED STATING SHE HAS LOST FEELING IN HER TOES AND WANTED TO CONSULT. PLEASE REACH OUT TO PT ATEARLIEST CONVENIENCE. THANK YOU documented in this encounter Plan of Treatment Not on file documented as of this encounter Visit Diagnoses Not on filedocumented in this encounter Care Teams Manager Monitoring Relationship Specialty Start Date End Date Yogi Abdul MD [address] [place] [address] PCP - General Family Medicine 03/06/21 documented as of this encounter
--- OUTSIDE RECORDS SUMMARY | 2024-06-26 16:06 | XMS_ITS | Encounter Summary ---
[facility] [address] [place] [address] Care Team Providers Care Marble Mason Name Role Phone Maine Leblanc Primary Care Provide r Encounter Details Date Type Department Care Team (Late st Contact Info) Description 12/29/2020 Telephone [facility] ENDOCRINOLOGY [address] [place] [address] Martha Grajeda MD [address] [place], [place] [id number] Social History Tobacco Use Types Packs/Day Years [...] Telephone Encounter - Janessa Davenport MA - 01/08/2021 3:13 PM EDT Spoke with patient she stated she spoke with Linda a couple days back and she feels her numbers aredoing better. She had a UTI and felt it was effecting her blood sugars. She has an up coming appt on 02/24 and thinks ok to wait until then. * Telephone Encounter - Martha Grajeda MD - 01/08/2021 2:29 PM EDT I have reviewed her dexcom download and she does have some higher numbers. She may need insulin pump adjustments. Could she come for appointment next week? I have openings Tuesday, or . (schedule her between u/s on Tuesday if she is ok with that day) * Telephone Encounter - Sherine Stewart - 01/07/2021 12:53 PM EDT ERROR * Telephone Encounter - Janessa Davenport MA - 12/30/2020 7:19 AM EDT I have printed her Dexcom report and placed it in your folder * Telephone Encounter - Sherine Stewart - 12/29/2020 12:10 PM EDT PT HAS BEEN ON THE TANDEM PUMP FOR 1 MTH SHE HAS STARTED TO HAVE HIGH BLOOD SUGARS [phone] PLEASE CALL PT [phone] documented in this encounter Plan of Treatment Not on file documented as of this encounter Visit Diagnoses Not on filedocumented in this encounter Care Teams Marble Mason Relationship Specialty Start Date End Date Maine Leblanc PA [address] [place] [address] PCP - General 09/25/15 03/05/21 documented as of this encounter
--- OUTSIDE RECORDS SUMMARY | 2024-06-26 16:06 | XMS_ITS | Encounter Summary ---
[facility] [address] [place] [address] Care Team Providers Care Branding Machine Tender Name Role Phone Maine Leblanc Primary Care Provide r Encounter Details Date Type Department Care Team (Late st Contact Info) Description 02/18/2020 Telephone [facility] ENDOCRINOLOGY [address] [place] [phone] Martha Leary MD [address] [place], [place] [phone] Social History Tobacco Use Types Packs/Day Years [...] Telephone Encounter - Janessa Davenport MA - 02/20/2020 10:52 AM EDT Spoke with patient she stated she had not started the Glyburide. Would do that and let us know before she increased dosage or added Humalog Expressed understanding about bringing logs to appt in 2 weeks * Telephone Encounter - Martha Leary MD - 02/19/2020 9:04 AM EDT Last recommendations I have in chart was increase in Lantus by 4 units (to 36 units) and increase glyburide to 4 tabs daily. Did she increase the dose? If she did, what are her glucose levels now, specifically fasting and after - meals. If after-meal numbers are high depsite increase in glyburide and morning numbers are < 150, we can start Humalog instead with meals and decrease glyburide To 1 tab daily. Start at 5 units with meals. Send Humalog pen in this case If morning umbers are still > 150, we can continue with increasing Lantus to 40 Units and 4 glyburides daily. Bring log book to the appointment in 2 weeks. * Telephone Encounter - Janessa Davenport MA - 02/19/2020 7:45 AM EDT Please advise I do not see message about Humalog * Telephone Encounter - Lin Chawla - 02/18/2020 9:57 AM EDT PATIENT AND DR. LEARY SPOKE ABOUT PATIENT TRYING HUMALOG MEDICATION. PATIENT HAS NOT HEARD IF WE ARE CALLING IN THAT PRESCRIPTION OR CHANGING HER MEDICATION. SHE WOULD LIKE A CALL BACK ABOUT MEDICATIONS. PHONE NUMBER IS [phone] documented in this encounter Plan of Treatment Not on file documented as of this encounter Visit Diagnoses Not on filedocumented in this encounter Care Teams Branding Machine Tender Relationship Specialty Start Date End Date Maine Leblanc PA [address] [place] [address] PCP - General 09/25/15 03/05/21 documented as of this encounter
--- OUTSIDE RECORDS SUMMARY | 2024-06-26 16:06 | XMS_ITS | Encounter Summary ---
[facility] Address [address] [place] [address] Care Team Providers Care Coordinator Of Online Programs Name Role Phone Maine Leblanc Primary Care Provide r Encounter Details Date Type Department Care Team (Late st Contact Info) Description 11/11/2020 3:30 PM EDT Office Visit [facility] DI[facility]ET[facility] EDUC[facility] [address] [place] [address] [address] [place] [address] Social History Tobacco Use Types Packs/Day Years [...] on file documented as of this encounter Consult Notes * Vania Mckeon - 11/11/2020 3:30 PM EDT Diabetes Education Patient Name: Pat Murphy Date of : 1990 Admit Date: (Not on file) 1 hr Initial DM ed provided as walk in per provider request. General education provided with specific attention paid to carb counting and discussing pump therapy. Pt was very receptive to education. Encouraged her to call with questions. Full session details will be available under Media tab. Julieth for the referral. Electronically signed by: Vania Mckeon 11/11/20 16:28 EDT documented in this encounter Plan of Treatment Not on file documented as of this encounter Visit Diagnoses Not on filedocumented in this encounter Care Teams Coordinator Of Online Programs Relationship Specialty Start Date End Date Maine Leblanc PA [address] [place] [address] PCP - General 09/25/15 03/05/21 documented as of this encounter
--- OUTSIDE RECORDS SUMMARY | 2024-06-26 16:06 | XMS_ITS | Encounter Summary ---
[facility] [address] [place] [address] Care Team Providers Care Children'S Librarian Name Role Phone Yogi Abdul MD Primary Care Provider [phone] Encounter Details Date Type Department Care Team (Late st Contact Info) Description 10/15/2021 Refill [facility]STROENTEROLOGY [address] [facility] [address] [place] [address] Martha Grajeda MD [address] [facility] [address] [place], [place] [phone] Social History Tobacco Use Types Packs/Day Years [...] encounter Miscellaneous Notes * Telephone Encounter - Manjula DavenporteNICHOL - 10/15/2021 9:50 AM EDT Returned pt call., advised that she should have refills. She stated that when she picked up her RX it said NO refills left. I let her know that pharmacy was probably filling the older RX and the new one should be on hold. She will let us know next month is not. HumaLOG 100 UNIT/ML injection [[id number]] ?? Order Details Dose, Route, Frequency: As Directed Dispense Quantity: 40 mL Refills: 3 Note to Pharmacy: Replaces previous RX ?? Sig: USE up to 105 UNITS VIA INSULIN PUMP DAILY ?? Start Date: 09/17/21 End Date: -- Written Date: 09/17/21 Expiration Date: 09/17/22 Original Order: HumaLOG 100 UNIT/ML injection [[id number]] Providers Ordering Provider and Authorizing Provider: Martha Grajeda MD [address] [place] [address] ? Ordering User: Martha Grajeda MD [place] [address] [address] [facility] - [phone] [facility] [phone] [facility] [place] [facility] [address] ?? Orders with any of the following pharmaceutical classes: Antidiabetic Name Dose Frequency Start Date End Date Medication Warnings Interventions? Order Mode metFORMIN ER (GLUCOPHAGE-XR) 500 MG 24 hr tablet 1,000 mg Daily With Breakfast 03/06/21 Outpatient Semaglutide,0.25 or 0.5MG/DOS, (Ozempic, 0.25 or 0.5 MG/DOSE,) 2 MG/1.5ML solution pen-injector 0.25 mg Weekly 09/17/21 Outpatient Warnings History No Interaction Warnings Shown Pharmacist Clinical Review History This prescription has not been clinically reviewed. Order Reconciliation Actions Order Reconciliation Actions E-Prescribing Status Outpatient Medication Detail HumaLOG 100 UNIT/ML injection Sig: USE up to 105 UNITS VIA INSULIN PUMP DAILY Sent to pharmacy as: HumaLOG 100 UNIT/ML Subcutaneous Solution Class: Normal Notes to Pharmacy: Replaces previous RX E-Prescribing Status: Receipt confirmed by pharmacy (09/17/2021 11:08 AM EST) * Telephone Encounter - Tessie Canela RegSched Rep - 10/15/2021 8:58 AM EDT Patient needs refill on insulin vials. HUMALOG documented in this encounter Plan of Treatment Not on file documented as of this encounter Visit Diagnoses Not on filedocumented in this encounter Care Teams Children'S Librarian Relationship Specialty Start Date End Date Yogi Abdul MD [address] [place] [id number] PCP - General Family Medicine 03/06/21 documented as of this encounter
--- OUTSIDE RECORDS SUMMARY | 2024-06-26 16:06 | XMS_ITS | Encounter Summary ---
[facility] Address [address] [place] [address] Care Team Providers Care Utility Tractor Operator Name Role Phone Yogi Abdul MD Primary Care Provider [phone] Encounter Details Date Type Department Care Team (Late st Contact Info) Description 10/08/2021 Patient rounding ([facility] only) [facility] NEUR[facility] [address] [address] Hortensia Thompson, Bri Rep Social History Tobacco Use Types Packs/Day [...] as of this encounter Progress Notes * Hortensia Thompson RegSched Rep - 10/08/2021 10:32 AM EDT October 08, 2021 [facility], may I speak with Pat Murphy? My name is Hortensia I am with [facility] [address] [address] . Before we get started november I verify your date of ? 1990 I am calling to officially welcome you to our practice and ask about your recent visit. Is this a good time to talk? Sent KSKT message for patient rounding. documented in this encounter Plan of Treatment Not on file documented as of this encounter Visit Diagnoses Not on filedocumented in this encounter Care Teams Utility Tractor Operator Relationship Specialty Start Date End Date Yogi Abdul MD [address] [place] [address] PCP - General Family Medicine 03/06/21 documented as of this encounter
--- OUTSIDE RECORDS SUMMARY | 2024-06-26 16:06 | XMS_ITS | Encounter Summary ---
Author Organization [facility] Address [address] [place] [address] Care Team Providers Care Bookbinding Machine Operator Name Role Phone Yogi Abdul MD Primary Care Provider [phone] Reason for Visit * Reason Comments Diabetes Follow UP Encounter Details Date Type Department Care Team (Late st Contact Info) Description 09/17/2021 10:30 AM EST Office Visit [facility] ENDOCRINOLOGY [address] [place] [address] Martha Grajeda MD [address] [place], [place] [id number] Type 2 diabetes mellitus with hyperglycemia, without [...] Sign Reading Time Taken Comments Blood Pressure 118/80 09/17/2021 10:42 AM EST Pulse 70 09/17/2021 10:42 AM EST Temperature - - Respiratory Rate - - Oxygen Saturation 98% 09/17/2021 10:42 AM EST Inhaled Oxygen Concentration - - Weight 131 kg (289 lb 12.8 oz) 09/17/2021 10:42 AM EST Height 172.7 cm (5' 8 ) 09/17/2021 10:42 AM EST Body Mass Index 44.06 09/17/2021 10:42 AM EST documented in this encounter Progress Notes * Martha Grajeda MD - 09/17/2021 10:30 AM EST Chief complaint Diabetes (Follow UP) Subjective Pat Murphy is a 31 y.o. [...] Rfl: ??? HumaLOG 100 UNIT/ML injection, USE 105 UNITS VIA INSULIN PUMP DAILY, Disp: 40 mL, Rfl: 3 ??? Insulin Lispro, 0.5 Unit Dial, (HUMALOG) 100 UNIT/ML solution pen-injector, Humalog KwikPen Insulin, Disp: , Rfl: ??? Insulin Pen Needle (Pen [place]) 32G X 4 MM misc, 1 each [...] Rfl: ??? traZODone (DESYREL) 50 MG tablet, , Disp: , Rfl: ??? Vraylar 1.5 MG capsule capsule, Take 1.5 mg by mouth Daily., Disp: , Rfl: Review of systems Review of Systems Constitutional: Positive for fatigue. All other systems reviewed and are negative. Physical exam Objective Blood pressure 118/80, pulse 70, height 172.7 cm (68 ), weight 131 kg (289 lb 12.8 oz), SpO2 98 %, not currently . Body mass index is 44.06 kg/m??. Physical Exam Constitutional: She is oriented [...] reviewed. LABS AND IMAGING Office Visit on 09/17/2021 Component Date Value Ref Range Status ??? Hemoglobin A1C 09/17/2021 6.7 % Final ??? Lot Number 09/17/2021 [id number] Final ??? Expiration Date 09/17/2021 04/21/2023 Final ??? Glucose 09/17/2021 215* 70 - 130 mg/dL Final ??? Lot Number 09/17/2021 [id number] Final ` ??? Expiration Date 09/17/2021 03/18/2022 Final Assessment Assessment/Plan Problems Addressed this Visit [...] significant hypoglycemia. Thyroid function was normal on labs. Follow-up in 3 months documented in this encounter Plan of Treatment Not on file documented as of this encounter Procedures Procedure Name Priority Date/Time Associated Diagnosis Comments TSH Routine 09/17/2021 11:28 AM EST Type 2 diabetes mellitus with hyperglycemia, without long-term current use of insulin Hyperthyroidism T4, FREE Routine 09/17/2021 11:28 AM EST Type 2 diabetes mellitus with hyperglycemia, without long-term current use of insulin Hyperthyroidism COMPREHENSIVE METABOLIC PANEL Routine 09/17/2021 11:28 AM EST Type 2 diabetes mellitus with hyperglycemia, without long-term current use of insulin Hyperthyroidism POCT GLYCOSYLATED HEMOGLOBIN (HGB A1C) Routine 09/17/2021 10:48 AM EST Type 2 diabetes mellitus with hyperglycemia, without long-term current use of insulin POCT GLUCOSE, BLD (NON STRIP) Routine 09/17/2021 10:47 AM EST Type 2 diabetes mellitus with hyperglycemia, without long-term current use of insulin documented in this encounter Results * T4, Free (09/17/2021 11:28 AM EST) Free T4 0.94 0.93 - 1.70 ng/dL 09/17/2021 8:07 PM EST [facility] Blood Venipuncture / Unknown 09/17/2021 11:28 AM EST 09/17/2021 11:28 AM EST Narrative [facility] - 09/17/2021 8:07 PM EST Results may be falsely increased if patient taking Biotin. Martha Naik MD LAB BLOOD ORDERABLES Final Res ult Performing Organization Address [facility]/ZIP Co de Phone Number [facility]
[address] [place] [address], * TSH (09/17/2021 11:28 AM EST) TSH 3.240 0.270 - 4.200 uIU/mL 09/17/2021 8:12 PM EST [facility] Blood Venipuncture / Unknown 09/17/2021 11:28 AM EST 09/17/2021 11:28 AM EST Martha Naik MD LAB BLOOD ORDERABLES Final Res ult Performing Organization Address [facility] Co de Phone Number [facility]
[address] [place] [address], * (ABNORMAL) Comprehensive Metabolic Panel (09/17/2021 11:28 AM EST) Glucose 141(H) 65 - 99 mg/dL 09/17/2021 10:01 PM [facility] BUN 9 6 - 20 mg/dL 09/17/2021 10:01 PM [facility] Creatinine 0.69 0.57 - 1.00 mg/dL 09/17/2021 10:01 PM [facility] Sodium 139 136 - 145 mmol/L 09/17/2021 10:01 PM [facility] Potassium 4.1 3.5 - 5.2 mmol/L 09/17/2021 10:01 PM [facility] Chloride 105 98 - 107 mmol/L 09/17/2021 10:01 PM [facility] CO2 22.8 22.0 - 29.0 mmol/L 09/17/2021 10:01 PM [facility] Calcium 9.2 8.6 - 10.5 mg/dL 09/17/2021 10:01 PM [facility] Total Protein 7.4 6.0 - 8.5 g/dL 09/17/2021 10:01 PM [facility] Albumin 4.30 3.50 - 5.20 g/dL 09/17/2021 10:01 PM [facility] ALT (SGPT) 24 1 - 33 U/L 09/17/2021 10:01 PM [facility] AST (SGOT) 17 1 - 32 U/L 09/17/2021 10:01 PM [facility] Alkaline Phosphatase 99 39 - 117 U/L 09/17/2021 10:01 PM [facility] Total Bilirubin 0.2 0.0 - 1.2 mg/dL 09/17/2021 10:01 PM [facility] eGFR Non Amer 98 >60 mL/min/1.7 3 09/17/2021 10:01 PM [facility] Globulin 3.1 gm/dL 09/17/2021 10:01 PM [facility] A/G Ratio 1.4 g/dL 09/17/2021 10:01 PM [facility] BUN/Creatinine Ratio 13.0 7.0 - 25.0 09/17/2021 10:01 PM [facility] Anion Gap 11.2 5.0 - 15.0 mmol/L 09/17/2021 10:01 PM [facility] Blood Venipuncture / Unknown 09/17/2021 11:28 AM EST 09/17/2021 11:28 AM [facility] - 09/17/2021 10:01 PM EST GFR Normal >60 Chronic Kidney Disease <60 Kidney Failure <15 us Martha Naik MD LAB BLOOD ORDERABLES Final Res ult [facility]
[address] [place] [address], [place] [phone] * POC Glycosylated Hemoglobin (Hb A1C) (09/17/2021 10:48 AM EST) Hemoglobin A1C 6.7 % [facility] Lot Number [id number] [facility] Expiration Date 04/21/2023 [facility] Blood 09/17/2021 10:4 8 AM EST Martha Naik MD POINT OF CARE TEST ORDERABLES Final Result [facility]
[address] [place] [address], [place] [phone] * (ABNORMAL) POC Glucose, Blood (09/17/2021 10:47 AM EST) Glucose 215(A) 70 - 130 mg/dL Lot Number [id number] Comment:` Expiration Date 03/18/2022 Blood 09/17/2021 10:4 7 AM EST us Martha Naik MD POINT OF CARE TEST ORDERABLES Final Result documented in this encounter Visit Diagnoses Diagnosis Type 2 diabetes mellitus with hyperglycemia, without long-term current use of insulin- Primary Hyperthyroidism Thyrotoxicosis without mention of goiter or other cause, without mention of thyrotoxic crisis or storm documented in this encounter Care Teams Bookbinding Machine Operator Relationship Specialty Start Date End Date Yogi Abdul MD [address] [place] [address] PCP - General Family Medicine 03/06/21 documented as of this encounter
--- OUTSIDE RECORDS SUMMARY | 2024-06-26 16:06 | XMS_ITS | Encounter Summary ---
[facility] Address [address] [place] [address] Care Team Providers Care Mysql Database Developer Name Role Phone Maine Leblanc Primary Care Provide r Encounter Details Date Type Department Care Team (Late st Contact Info) Description 06/11/2020 9:20 AM EST Lab [facility] [address] [facility] [address] [place] [address] Social History Tobacco Use Types Packs/Day Years [...] on filedocumented in this encounter Care Teams Mysql Database Developer Relationship Specialty Start Date End Date Maine Leblanc PA [facility] [place] [address] [address] PCP - General 09/25/15 03/05/21 documented as of this encounter
--- OUTSIDE RECORDS SUMMARY | 2024-06-26 16:06 | XMS_ITS | Encounter Summary ---
[facility] Address [address] [place] [address] Care Team Providers Care Vamp Cut Out Worker Name Role Phone Maine Leblanc Primary Care Provide r Encounter Details Date Type Department Care Team (Late st Contact Info) Description 12/24/2020 Documentation [facility] [address] [facility] [address] [place] [phone] Vania Mckeon Social History Tobacco Use Types Packs/Day Years [...] on file documented as of this encounter Nursing Notes * Vania Mckeon - 12/24/2020 2:38 PM EDT Contact pt via telephone for follow up to diabetes previous education. Pt reports that she has met all of her goals. She has started using the Tandem pump and has seen a significant improvemment in her BG levels, her current 14 day average is 134 mg/dL per her Dexcom. She is using Control IQ on thepump which has helped her avoid hypoglycemia a few times. Pt is counting carbs at her meals and reports confidence with entering this information into her pump. She is eating 55-60gm carb per meal and reports this is working well for her BG levels. Additionally, she has started going back to the [place] a few times each week and has lost ~11lbs. Pt reports that she feels much better, her frustration with BD mgmt has significantly reduced and she is confident with her current plan. Encouraged her to call with additional questions/concerns. documented in this encounter Plan of Treatment Not on file documented as of this encounter Visit Diagnoses Not on filedocumented in this encounter Care Teams Vamp Cut Out Worker Relationship Specialty Start Date End Date Maine Leblanc PA [address] [place] [address] PCP - General 09/25/15 03/05/21 documented as of this encounter
--- OUTSIDE RECORDS SUMMARY | 2024-06-26 16:06 | XMS_ITS | Encounter Summary ---
[facility] Address [address] [place] [address] Care Team Providers Care Tip Finisher Name Role Phone Maien Leblanc Primary Care Provide r Reason for Visit * Reason Onset Date Comments Med Refill 09/24/2020 Encounter Details Date Type Department Care Team (Late st Contact Info) Description 09/24/2020 Refill [facility] ENDOCRINOLOGY [address] [place] [address] Martha Grajeda MD [address] [place] [address] Social History Tobacco Use Types Packs/Day Years [...] on filedocumented in this encounter Care Teams Tip Finisher Relationship Specialty Start Date End Date Maine Leblanc PA [address] [place] [address] PCP - General 09/25/15 03/05/21 documented as of this encounter
--- OUTSIDE RECORDS SUMMARY | 2024-06-26 16:06 | XMS_ITS | Encounter Summary ---
[facility] Address [address] [place] [address] Care Team Providers Care Nurse Research Name Role Phone Yogi Abdul MD Primary Care Provider [phone] Encounter Details Date Type Department Care Team (Late st Contact Info) Description 09/30/2021 Telephone [facility] [address] [address] Rosemarie Patricia APRN [address] [employer] [place] [id number] Social History Tobacco Use Types Packs/Day Years [...] Encounter - Francoise Graham MA - 10/05/2021 2:54 PM EDT Patient informed of normal labs * Telephone Encounter - Francoise Graham MA - 09/30/2021 9:14 AM EST ----- Message from Rosemarie Patricia APRN sent at 09/29/2021 9:00 AM EST ----- Please let patient know folic acid and vitamin B12 levels were normal range There are still couple labs pending, we will contact her when they are resulted * Telephone Encounter - Francoise Graham MA - 09/30/2021 9:14 AM EST ----- Message from Rosemarie Patricia APRN sent at 09/29/2021 2:26 PM EST ----- Please let patient know that her immunofixation study, one test we do for neuropathy showed no abnormalities documented in this encounter Plan of Treatment Not on file documented as of this encounter Visit Diagnoses Not on filedocumented in this encounter Care Teams Nurse Research Relationship Specialty Start Date End Date Yogi Abdul MD [address] [place] [id number] PCP - General Family Medicine 03/06/21 documented as of this encounter
--- OUTSIDE RECORDS SUMMARY | 2024-06-26 16:06 | XMS_ITS | Encounter Summary ---
[facility] Address [address] [place] [address] Care Team Providers Care Bariatric Nurse Name Role Phone Yogi Abdul MD Primary Care Provider [phone] Reason for Referral * Diagnostic Imaging (Routine) - Closed Specialty Diagnoses / Procedures Referred By Contac t Referred To Contact Radiology Diagnoses Numbness in feet Periodic headache syndrome, not intractable Procedures MRI Brain Without Contrast Rosemarie Patricia APRN [address] [place] [address] Phone: tel: fax: [address] [address] Phone: tel: Referral ID Status Reason Start Date Expiration Date Visits Re quested Visits Authorized [id number] Closed 09/28/2021 11/06/2021 1 1 * Diagnostic Imaging (Routine) - Closed Specialty Diagnoses / Procedures Referred By Contac t Referred To Contact Radiology Diagnoses Chronic midline low back pain with right-sided sciatica Numbness in feet Procedures MRI Lumbar Spine Without Contrast Rosemarie Patricia APRN [address] [place] [address] Phone: tel: fax: [address] [address] Phone: tel: Referral ID Status Reason Start Date Expiration Date Visits Re quested Visits Authorized [id number] Closed 09/28/2021 11/06/2021 1 1 * Diagnostic Imaging (Routine) - Closed Specialty Diagnoses / Procedures Referred By Irma eugene Referred To Contact Diagnoses Pain in both feet Numbness in feet Procedures EMG & Nerve Conduction Test Rosemarie Patricia APRN [address] [facility] [address] [place] [address] Phone: tel: fax: [address] [address] Phone: tel: Referral ID Status Reason Start Date Expiration Date Visits Re quested Visits Authorized [id number] Closed 09/28/2021 09/28/2022 1 1 Reason for Visit * Reason Comments Numbness feet * Consultation (Routine) - Closed Specialty Diagnoses / Procedures Referred By Irma eugene Referred To Contact Neurology Diagnoses Numbness and tingling of both feet Martha Grajeda MD [address] [facility] [address] [place] [address] Phone: tel: fax: [facility] NEUROLOGY [address] [facility] [address] [place] [address] Phone: tel: fax: Referral ID Status Reason Start Date Expiration Date V isits Requested Visits Authorized [id number] Closed Specialty Services Required 08/17/2021 08/17/2022 1 1 Encounter Details Date Type Department Care Team (Late st Contact Info) Description 09/28/2021 9:30 AM EST Office Visit [facility] NEUROLOGY [address] [facility] [address] [place] [address] Rosemarie Patircia APRN [address] [place] [address] Chronic midline low back pain with right-sided sciatica (Primary Dx); Pain in both feet; Numbness in feet; Periodic headache syndrome, not intractable Social History Tobacco Use Types Packs/Day Years Used Date Smoking Tobacco: Every Day Cigarettes Smokeless Tobacco: Never Tobacco Cessation:Counseling Given: No Alcohol Use Standard Drinks/Week Comments [...] Sign Reading Time Taken Comments Blood Pressure 100/80 09/28/2021 8:59 AM EST Pulse 84 09/28/2021 8:59 AM EST Temperature 36.5 ??C (97.7 ??F) 09/28/2021 8:59 AM ES T Respiratory Rate - - Oxygen Saturation 98% 09/28/2021 8:59 AM EST Inhaled Oxygen Concentration - - Weight 130 kg (287 lb) 09/28/2021 8:59 AM EST Height 172.7 cm (5' 8 ) 09/28/2021 8:59 AM EST Body Mass Index 43.64 09/28/2021 8:59 AM EST documented in this encounter Progress Notes * Rosemarie Patricia, BLANCA - 09/28/2021 9:30 AM EST Subjective: Patient ID: Pat Murphy is a 31 y.o. female. CC: Chief Complaint Patient presents with ??? Numbness feet HPI: History of Present Illness Ms. Murphy is a very pleasant 31-year-old female here today for initial neurological evaluation with complaints of numbness and pain in her feet and legs as well as low back pain. She tells me thatshe has been struggling with intermittent numbness and tingling in both of her feet, right greater than left as well as low back pain with right leg sciatica for about 9 years now. She feels like thediscomfort comes and goes, she thinks it seems to be a little bit worse in the past year or so. Shesays she can go 2 to 3 months without having any discomfort or numbness in her feet at all and thenwill have a flareup of numbness and pain in her feet and leg that last 2 or 3 days. She has a history of sciatica in both pregnancies, she feels like after her last child this became more problematic. She has low back pain midline with occasional radiation down her right leg. Denies bowel or bladder incontinence. She also denies problems with weakness or balance, no falls She is diabetic, she was diagnosed around 2014, she is currently on insulin and followed by endocrinology at [facility]. Her hemoglobin A1c's for the last year have been fairly good, she did havea year or so where her readings were consistently around 8% She adamantly denies any numbness or tingling in her hands, denies weakness in her arms or legs. She does have intermittent migraines, she has had these for a couple years now, she gets maybe 2 migraines per month. These are described as intense headaches typically on the left side of her head at times with photophobia but she does get nauseated often with severe headaches. She denies vision changes, dizziness, stroke symptoms, syncope, tremor weakness or falls. She has never had any back or head injuries The following portions of the patient's history [...] Other Kidney transplanted Review of Systems Constitutional: Positive for appetite change. Negative for activity change. HENT: Negative for tinnitus and trouble swallowing. Eyes: Negative. Respiratory: Negative. Cardiovascular: Negative. Gastrointestinal: Negative. Endocrine: Negative. Genitourinary: Negative. Musculoskeletal: Positive for back pain. Skin: Negative. Allergic/Immunologic: Positive for environmental allergies. Neurological: Positive for numbness and headaches. Negative for dizziness, tremors, seizures, syncope, facial asymmetry, speech difficulty, weakness and light-headedness. Hematological: Negative. Psychiatric/Behavioral: Negative. Objective: BP 100/80 Pulse 84 Temp 97.7 ??F (36.5 ??C) Ht 172.7 cm (68 ) Wt 130 kg (287 lb) SpO2 98% BMI 43.64 kg/m?? Neurologic Exam Mental Status Oriented to person, place, and time. Attention: normal. Concentration: normal. Speech: speech is normal Level of consciousness: alert Knowledge: consistent with education. Able to read. Able to write. Normal comprehension. Cranial Nerves Cranial nerves II through XII intact. CN II Visual pradhan full to confrontation. Right visual field deficit: none Left visual field deficit: none CN III, IV, Pupils are equal, round, and reactive to light. Extraocular motions are normal. Right pupil: Size: 3 mm. Shape: regular. Reactivity: brisk. Consensual response: intact. Accommodation: intact. Left pupil: Size: 3 mm. Shape: regular. Reactivity: brisk. Consensual response: intact. [...] tone: normal Left arm tone: normal Right arm pronator drift: absent Left arm pronator drift: absent Right leg tone: normal Left leg tone: normal Strength Strength 5/5 throughout. Sensory Exam Light touch normal. Right arm light touch: normal Left arm light touch: normal Right leg light touch: normal Left leg light touch: normal Right arm vibration: normal Left arm vibration: normal Right leg vibration: normal Left leg vibration: normal Proprioception normal. Right arm pinprick: normal Left arm pinprick: normal Right leg pinprick: decreased from toes Left leg pinprick: decreased from toes She has full pinprick sensation throughout her feet with the exception of great toes bilaterally, slight decreased pinprick sensation, she describes this as feeling pressure but no sharp pinprick No great toe weakness noted Gait, Coordination, and Reflexes Gait Gait: normal Coordination Romberg: negative Finger to nose coordination: normal Heel to viveros coordination: normal Tandem walking coordination: normal Tremor Resting tremor: absent Intention tremor: absent Action tremor: absent Reflexes Right plantar: normal Left plantar: normal1+ DTRs lower extremities, 2+ upper extremities Physical Exam Vitals reviewed. Constitutional: General: She [...] refill takes less than 2 seconds. Neurological: Mental Status: She is alert and oriented to person, place, and time. Coordination: Qptswp-Igws-Clesny Test, Heel to Viveros Test and Romberg Test normal. Gait: Gait is intact. Tandem walk normal. Deep Tendon Reflexes: Strength normal. Psychiatric: Mood and Affect: Mood normal. Speech: Speech normal. Behavior: Behavior normal. Thought Content: Thought content normal. Judgment: Judgment normal. Assessment/Plan: Diagnoses and all orders for this visit: 1. Chronic midline low back pain with right-sided sciatica (Primary) - MRI Lumbar Spine Without Contrast; Future 2. Pain in both feet - EMG & Nerve Conduction Test; Future 3. Numbness in feet - EMG & Nerve Conduction Test; Future - MRI Lumbar Spine Without Contrast; Future - MRI Brain Without Contrast; Future - Methylmalonic Acid, Serum; Future - Vitamin B12 & Folate; Future - Vitamin B6; Future - IVONNE + PE; Future 4. Periodic headache syndrome, not intractable - MRI Brain Without Contrast; Future Ms. Murphy is here today for evaluation of intermittent numbness tingling and a burning pain in her feet as well as low back pain with occasional right leg sciatica. She reports her feet only burn and tingle and feel numb when her lower back is bothering her. Back in 2019 her primary care did obtain an x-ray which showed wear and tear , she did some physical therapy which did help a bit I am going to order an MRI of her lumbar spine due to her complaints of sciatica and numbness, EMG also ordered. It appears that her resident physician ordered an EMG about a month or so ago but they were unable to reach her to schedule, I encouraged her to contact us if she has not heard back about scheduling and we can forward her to central scheduling at that time Due to her headaches I will order an MRI of the brain, recommend eye exam We did discuss medications, she says that her numbness and burning pain in her feet is intermittentand she can go 2 to 3 months without having any symptoms at all therefore she declines daily medication such as gabapentin, certainly if her complaints are occurring more often this is something we can discuss in the future Recommend that she hydrate well, maintain appropriate sleep schedule and use caffeine and NSAIDs sparingly Recommend strict glucose control and follow-up with endocrinology We will be in touch with her with results of the above labs and diagnostic test once results are received. I will see her back here at next available clinic appointment to go over results, she is encouraged to reach out with any questions concerns or problems prior to follow-up appointment Reviewed medications, potential side effects and signs [...] [x] Labs Ordered [x] Radiology Reports Reviewed [] Radiology Ordered [x] PCP Records Reviewed [] Referring Provider Records Reviewed [x] ER Records Reviewed [] Hospital Records Reviewed [] History Obtained From Family [] Radiology Images Reviewed [] Other Reviewed [] Records Requested [] Rosemarie Patricia APRN 09/28/2021 documented in this encounter Plan of Treatment Not on file documented as of this encounter Results * EMG 64421 (X1) & NCS 9-10 (75036) (11/12/2021 10:50 AM EDT) Impressions NEUROLOGY - 11/12/2021 11:08 AM EDT Peripheral neuropathy, axonal, mild No electrophysiologic evidence for radiculopathy is seen in the right leg This report is transcribed using the [employer] dictation system. Narrative NEUROLOGY - 11/12/2021 11:08 [...] leg and lumbar paraspinous muscles are normal Rosemarie Patricia BLANCA NEUROLOGY ORDERABLES Final Result NEUROLOGY * MRI Brain Without Contrast (10/29/2021 7:26 [...] on 10/30/2021 8:47 AM by Derick Brewer. us Rosemarie Patricia APRN IM MRI ORDERABLES Fi nal Result * MRI Lumbar Spine Without Contrast (10/29/2021 [...] AM by Sergio Arnold MD. Rosemarie Patricia TAX INVESTIGATOR IMG MRI ORDERABLES Fi nal Result * IVONNE + PE (09/28/2021 9:38 AM EST) IgG 1204 586 - 1602 mg/dL 09/29/2021 2:10 PM EST [facility] IgA 263 87 - 352 mg/dL 09/29/2021 2:10 PM EST [facility] IgM 60 26 - 217 mg/dL 09/29/2021 2:10 PM EST [facility] Total Protein 7.2 6.0 - 8.5 g/dL 09/29/2021 2:10 PM EST [facility] Albumin 3.9 2.9 - 4.4 g/dL 09/29/2021 2:10 PM EST [facility] Ggyeh-3-Tzgtkuli 0.2 0.0 - 0.4 g/dL 09/29/2021 2:10 PM EST [facility] Cplpg-0-Ottlqwhm 0.7 0.4 - 1.0 g/dL 09/29/2021 2:10 PM EST [facility] Beta Globulin 1.1 0.7 - 1.3 g/dL 09/29/2021 2:10 PM EST [facility] Gamma Globulin 1.3 0.4 - 1.8 g/dL 09/29/2021 2:10 PM EST [facility] M-Zaire Not Observed Not Observed g/dL 09/29/2021 2:10 PM EST [facility] Globulin 3.3 2.2 - 3.9 g/dL 09/29/2021 2:10 PM EST [facility] A/G Ratio 1.2 0.7 - 1.7 09/29/2021 2:10 PM EST [facility] Immunofixation Reflex, Serum Comment 09/29/2021 2:10 PM EST [facility] Comment:No monoclonality det ected. Please note Comment 09/29/2021 2:10 PM EST [facility] Comment: Protein electrophoresis scan will follow via computer, mail, or glass washer and carrier delivery. Blood Venipuncture / Unknown 09/28/2021 9:38 AM EST 09/28/2021 9:38 AM EST Narrative [facility] - 09/29/2021 2:10 PM EST Performed at: ??01 - [address], [place], [place] ??[id number] Portuguese Tutor: Reg Singh PhD, Phone: ??[phone] Rosemarie Patricia TAX INVESTIGATOR LAB BLOOD ORDERABLES Final Result [facility] [address] [place] [address], * Vitamin B6 (09/28/2021 9:38 AM EST) Vitamin B6 7.9 2.0 - 32.8 ug/L 10/01/2021 3:09 PM EST [facility] Comment: Effective October 26, 2021 Vitamin B6 reference ??interval will be changing to: ?3.4 - 65.2 ug/L ?Deficiency: ? < 3.4 ?Marginal: ?3.4 - ??5.1 ?Adequate: ? > 5.1 Blood Venipuncture / Unknown 09/28/2021 9:38 AM EST 09/28/2021 9:38 AM EST Narrative [facility] - 10/01/2021 3:09 PM EST Test(s) 395071-Efsbduk B6 was developed and its performance characteristics determined by [employer]. It has not been cleared or approved by the Food and Drug Administration. Performed at: ??01 - [facility] [address] ??[id number] Portuguese Tutor: Annamarie Irvin MD, Phone: ??[phone] Rosemarie Patricia APRN LAB BLOOD ORDERABLES Final Result Performing Organization Address [facility] Co de Phone Number [facility] [address] [place] [address], [place] [phone] * Vitamin B12 & Folate (09/28/2021 9:38 AM EST) Folate 6.38 4.78 - 24.20 ng/mL 09/29/2021 12:30 AM EST [facility] Vitamin B-12 403 211 - 946 pg/mL 09/29/2021 12:30 AM EST [facility] Blood Venipuncture / Unknown 09/28/2021 9:38 AM EST 09/28/2021 9:38 AM EST [facility] - 09/29/2021 12:30 AM EST Results may be falsely increased if patient taking Biotin. Rosemarie Patricia APRN LAB BLOOD ORDERABLES Final Result Performing Organization Address [facility]/ZIP Co de Phone Number [facility]
[address] [place] [address], [place] [phone] * Methylmalonic Acid, Serum (09/28/2021 9:38 AM EST) Pathologist [facility] Methylmalonic Acid 128 0 - 378 nmol/L 10/01/2021 11:10 AM EST [facility] Blood Venipuncture / Unknown 09/28/2021 9:38 AM EST 09/28/2021 9:38 AM EST Narrative [facility] - 10/01/2021 11:10 AM EST Test(s) [id number]-Axdjakupnvjqw Acid, Serum was developed and its performance characteristics determined by [employer]. It has not been cleared or approved by the Food and Drug Administration. Performed at: ??01 - [address], [place] ??[id number] Portuguese Tutor: Annamarie Irvin MD, Phone: ??[phone] us Rosemarie Zohra Patricia APRN LAB BLOOD ORDERABLES Final Result [facility] [address] [place] [address], documented in this encounter Visit Diagnoses Diagnosis Chronic midline low back pain with right-sided sciatica- Primary Pain in both feet Numbness in feet Periodic headache syndrome, not intractable Numbness in feet Periodic headache syndrome, not intractable Chronic midline low back pain with right-sided sciatica Numbness in feet Pain in both feet Numbness in feet documented in this encounter Care Teams Bariatric Nurse Relationship Specialty Start Date End Date Yogi Abdul MD [address] [id number] PCP - General Family Medicine 03/06/21 documented as of this encounter
--- OUTSIDE RECORDS SUMMARY | 2024-06-26 16:06 | XMS_ITS | Encounter Summary ---
[facility] Address [address] [place] [address] Care Team Providers Care Supervisor Filtration Name Role Phone Maine Leblanc Primary Care Provide r Reason for Visit * Reason Onset Date Comments Advice Only 01/27/2021 Encounter Details Date Type Department Care Team (Late st Contact Info) Description 01/27/2021 Telephone [facility] ENDOCRINOLOGY [address] [place] [phone] Martha Grajeda MD [address] [place] [address] Advice Only Social History Tobacco [...] Encounter - Janessa Davenport MA - 01/27/2021 12:45 PM EDT Returned patient call, advised of message expressed understanding * Telephone Encounter - Martha Grajeda MD - 01/27/2021 11:39 AM EDT She can place it on the side or back (around the waistline), arm could be used as well. She can place any location she would administer insulin injections. * Telephone Encounter - Janessa Davenport MA - 01/27/2021 10:40 AM EDT Please see message * Telephone Encounter - Grecia Love RegSched Rep - 01/27/2021 8:52 AM EDT Pt called cancelled her appointment for today she seems to have her pump setting under control now.Pt wants to know the best spot for infusion arm, abdomen to stated she has a lot of scar tissue on stomach and that's might be a bad spot to stick the infusion. Please notify pt documented in this encounter Plan of Treatment Not on file documented as of this encounter Visit Diagnoses Not on filedocumented in this encounter Care Teams Supervisor Filtration Relationship Specialty Start Date End Date Maine Leblanc PA [address] [place] [address] PCP - General 09/25/15 03/05/21 documented as of this encounter
--- OUTSIDE RECORDS SUMMARY | 2024-06-26 16:06 | XMS_ITS | Encounter Summary ---
[facility] [address] [place] [address] Care Team Providers Care Nail Making Machine Setter Name Role Phone Maine Leblanc Primary Care Provide r Encounter Details Date Type Department Care Team (Late st Contact Info) Description 11/13/2020 Telephone [facility] ENDOCRINOLOGY [address] [place] [address] Martha Grajeda MD [address] [place], [place] [id number] Social History Tobacco Use Types Packs/Day Years [...] Telephone Encounter - Janessa Davenport MA - 11/13/2020 8:50 AM EDT Returned patient call, she stated she did not know what type/kind of needles would need to be used.She has been talking to her Insurance company. I let her know that I received a e-mail from Akil with [employer] and he is working on it and should be contintg her to go over all of that with her. * Telephone Encounter - Savannah Garcia RegSched Rep - 11/13/2020 8:31 AM EDT Pt would like to speak with someone on the clinical staff about what kind of needle does she need for her injections, please advise. documented in this encounter Plan of Treatment Not on file documented as of this encounter Visit Diagnoses Not on filedocumented in this encounter Care Teams Nail Making Machine Setter Relationship Specialty Start Date End Date Maine Leblanc PA [address] [place] [address] PCP - General 09/25/15 03/05/21 documented as of this encounter
--- OUTSIDE RECORDS SUMMARY | 2024-06-26 16:06 | XMS_ITS | Encounter Summary ---
[facility] Address [address] [place] [address] Care Team Providers Care Per Diem Interpreter Name Role Phone Yogi Abdul MD Primary Care Provider [phone] Encounter Details Date Type Department Care Team (Late st Contact Info) Description 03/06/2021 10:25 AM EDT Lab [facility] [address] [facility] [address] [place] [address] Social History Tobacco Use Types Packs/Day Years [...] on filedocumented in this encounter Care Teams Per Diem Interpreter Relationship Specialty Start Date End Date Yogi Abdul MD [address] [place] [address] PCP - General Family Medicine 03/06/21 documented as of this encounter
--- OUTSIDE RECORDS SUMMARY | 2024-06-26 16:06 | XMS_ITS | Encounter Summary ---
[facility] [address] [place] [address] Care Team Providers Care Diver Helper Name Role Phone Maine Leblanc Primary Care Provide r Reason for Visit * Reason Onset Date Comments Med Refill 09/24/2020 Med Refill 09/25/2020 Encounter Details Date Type Department Care Team (Late st Contact Info) Description 09/24/2020 Refill [facility] ENDOCRINOLOGY [address] [place] [phone] Martha Grajeda MD [address] [facility] [address] [place] [address] Social History Tobacco Use Types Packs/Day [...] Telephone Encounter - Janessa Davenport MA - 09/24/2020 11:15 AM EST Last OV 06/11/2020 Future appt 11/11/20 * Telephone Encounter - Sherine Stewart - 09/24/2020 10:40 AM EST PT CALLED TO SAY THAT SHE NEEDS RX FOR HUMALOG PEN SHE IS TAKING 15 TO 20 UNITS AT EACH MEAL AND ISRUNNING OUT OF IT FASTER THAN BEFORE PT USES [facility] IN [place] PTS NUMBER [phone] documented in this encounter Plan of Treatment Not on file documented as of this encounter Visit Diagnoses Not on filedocumented in this encounter Care Teams Diver Helper Relationship Specialty Start Date End Date Maine Leblanc PA [address] [place] [address] PCP - General 09/25/15 03/05/21 documented as of this encounter
--- OUTSIDE RECORDS SUMMARY | 2024-06-26 16:06 | XMS_ITS | Encounter Summary ---
[facility] Address [address] [place] [address] Care Team Providers Care Offal Worker Name Role Phone Maine Leblanc Primary Care Provide r Reason for Visit * Reason Onset Date Comments Med Refill 02/16/2020 Encounter Details Date Type Department Care Team (Late st Contact Info) Description 02/16/2020 Refill [facility] ENDOCRINOLOGY [address] [place] [address] Martha Grajeda MD [address] [place] [address] Social History Tobacco Use Types Packs/Day Years [...] on filedocumented in this encounter Care Teams Offal Worker Relationship Specialty Start Date End Date Maine Leblanc PA [address] [place] [address] PCP - General 09/25/15 03/05/21 documented as of this encounter
--- OUTSIDE RECORDS SUMMARY | 2024-06-26 16:06 | XMS_ITS | Encounter Summary ---
[facility] Address [address] [place] [address] Care Team Providers Care Credit Administration Specialist Name Role Phone Maine Leblanc Primary Care Provide r Reason for Visit * Reason Onset Date Comments GRAJEDA-RE: PEN NEEDLE RX 04/17/2020 Encounter Details Date Type Department Care Team (Late st Contact Info) Description 04/17/2020 Telephone [facility] [address] [place] [phone] Martha Grajeda MD [address] [place] [address] GIBRAN-RE: PEN NEEDLE RX Social History Tobacco Use Types Packs/Day Years [...] Telephone Encounter - Janessa Davenport MA - 04/17/2020 11:38 AM EDT Resent RX to state Injecting 4 times daily. * Telephone Encounter - Marilyn Christopher - 04/17/2020 11:28 AM EDT PATIENT PICKED UP REFILL ON PEN NEEDLES TODAY AND THE LABEL STATES THAT SHE USES ONE NEEDLE PER DAYBUT SHE IS USING FOUR NEEDLES PER DAY AND WAS ADVISED BY HER PHARMACY TO CALL THE OFFICE TO REQUESTA CORRECTED RX FOR THE PEN NEEDLES TO REFLECT THE FREQUENCY. CHRISTEL PAZ documented in this encounter Plan of Treatment Not on file documented as of this encounter Visit Diagnoses Not on filedocumented in this encounter Care Teams Credit Administration Specialist Relationship Specialty Start Date End Date Maine Leblanc PA [address] [place] [address] PCP - General 09/25/15 03/05/21 documented as of this encounter
--- OUTSIDE RECORDS SUMMARY | 2024-06-26 16:06 | XMS_ITS | Encounter Summary ---
[facility] Organization [facility] Address [address] [place] [address] Care Team Providers Care Academy Education Director Name Role Phone Maine Leblanc Primary Care Provide r Reason for Referral * Health Education (Routine) - Closed Specialty Diagnoses / Procedures Referred By Contac t Referred To Contact Nutrition Diagnoses Type 2 diabetes mellitus with hyperglycemia, without long-term current use of insulin Martha Grajeda MD [address] [place] [address] Phone: tel: fax: [facility] [address] [place] [address] [address] [place] [address] Phone: tel: fax: Referral ID Status Reason Start Date Expiration Date V isits Requested Visits Authorized [id number] Closed Specialty Services Required 11/11/2020 11/11/2021 1 1 Reason for Visit * Reason Comments Diabetes Follow up: Having pa in in feet Encounter Details Date Type Department Care Team (Late st Contact Info) Description 11/11/2020 2:15 PM EDT Office Visit [facility] [address] [place] [address] Martha Grajeda MD [address] [place], [place] [id number] Type 2 diabetes mellitus with hyperglycemia, without [...] Sign Reading Time Taken Comments Blood Pressure 128/86 11/11/2020 2:23 PM EDT Pulse 80 11/11/2020 2:23 PM EDT Temperature 36.5 ??C (97.7 ??F) 11/11/2020 2:23 PM ED T Respiratory Rate - - Oxygen Saturation 98% 11/11/2020 2:23 PM EDT Inhaled Oxygen Concentration - - Weight 130 kg (287 lb 8 oz) 11/11/2020 2:23 PM E DT Height 172.7 cm (5' 8 ) 11/11/2020 2:23 PM EDT Body Mass Index 43.71 11/11/2020 2:23 PM EDT documented in this encounter Patient Instructions * Patient Instructions* Martha Grajeda MD - 11/11/2020 2:15 PM EDT 12/[birth year]/19 Pat Murphy 1990 Results for orders placed or performed in visit on 11/11/20 POC Glucose, Blood Specimen: Blood Result Value Ref Range Glucose 252 (A) 70 - 130 mg/dL Lot Number [id number] Expiration Date 06/05/2021 POC Glycosylated Hemoglobin (Hb A1C) Specimen: Blood Result Value Ref Range Hemoglobin A1C 8.3 % Lot Number [id number] Expiration Date 07/08/2022 Continue metformin and glyburide. ADA General Goals: A1c: < 7% Fasting/before meal glucose: <150 mg/dL 2 Hour after meal glucoses: < 180 mg/dL Bedtime glucose:120-180 Lantus 36 units before bedtime. Start Humalog 16 units with dinner, 10 units at lunch and 5-10 units with breakfast Add correction insulin: Glucose 200-249 - add 2 units 250-299 - add 4 units 300-349 - add 6 units > 350 - add 8 units If you are having frequent blood sugars lower than 70, call the office. Martha Grajeda MD documented in this encounter Progress Notes * Martha Grajeda MD - 11/11/2020 2:15 PM EDT Chief complaint Diabetes (Follow up: Having pain in feet ) Subjective Pat Murphy is a 30 y.o. [...] of . Thyroid levels were tested with assistant real estate manager Cha Osorio and levels were normal off the medication. November 2018 she had TSH 2.77 and low FT4, was started on levothyroxine 25 at that time and increased to 50mcg 01/23/19 by assistant real estate manager. Levothyroxine discontinued after that and levels remained stable. C/o feet pain Medications Current Outpatient Medications: ??? busPIRone (BUSPAR) [...] day, Disp: 360 tablet, Rfl: 3 ??? HumaLOG KwikPen 100 UNIT/ML solution pen-injector, 20 units Three times daily with meals, Disp:18 mL, Rfl: 6 ??? insulin degludec (TRESIBA FLEXTOUCH) 100 UNIT/ML solution pen-injector injection, Inject 40 Units under the skin into the appropriate area as directed Daily., Disp: 5 pen, Rfl: 3 ??? Insulin Pen Needle (Pen Montrose) 32G X 4 MM misc, 1 each [...] are negative. Physical exam Objective Blood pressure 128/86, pulse 80, temperature 97.7 ??F (36.5 ??C), height 172.7 cm (68 ), weight 130kg (287 lb 8 oz), SpO2 98 %, not currently . [...] reviewed. LABS AND IMAGING Office Visit on 11/11/2020 Component Date Value Ref Range Status ??? Glucose 11/11/2020 252* 70 - 130 mg/dL Final ??? Lot Number 11/11/2020 [id number] Final ??? Expiration Date 11/11/2020 06/05/2021 Final ??? Hemoglobin A1C 11/11/2020 8.3 % Final ??? Lot Number 11/11/2020 [id number] Final ??? Expiration Date 11/11/2020 07/08/2022 Final Assessment Assessment/Plan Problems Addressed this Visit Other Diabetes mellitus ([facility]) - Primary Relevant Orders POC Glucose, Blood (Completed) POC Glycosylated Hemoglobin (Hb A1C) (Completed) Polycystic ovaries Hyperthyroidism Diagnoses Codes Comments Type 2 diabetes mellitus with hyperglycemia, without long-term current use of insulin ([facility]) - Primary ICD-10-CM: E11.65 ICD-9-CM: 250.00, 790.29 Polycystic ovaries ICD-10-CM: E28.2 ICD-9-CM: 256.4 Hyperthyroidism ICD-10-CM: E05.90 ICD-9-CM: 242.90 Plan Continue metformin and glyburide, Lantus 36 units and Humalog 6 units with larger meal (dinner). Insulin titration instructions given. I have reviewed Dexcom data and her nighttime glucose is close to goal, postprandial surge after breakfast and dinner observed new instructions given. I have gone over the insulin pump therapy and T-slim would be a good optionfor her. She had a session with the sample tester today to discuss carb counting and develop a meal individual plan. Since she started Weight watchers cont same lantus. Dexcom data analyzed. Hypoglycemia precautions reviewed. Fasting labs today Recheck thyroid function. Send referral Follow-up in 3 months documented in this encounter Plan of Treatment Scheduled Referrals Name Type Priority Associated Diagnoses Order Schedule Ambulatory Referral to Nutrition Services Outpatient Referral Routine Type 2 diabetes mellitus with hyperglycemia, without long-term current use of insulin Ordered: 11/11/2020 documented as of this encounter Procedures Procedure Name Priority Date/Time Associated Diagnosis Comments POCT GLUCOSE, BLD (NON STRIP) Routine 11/11/2020 2:29 PM EDT Type 2 diabetes mellitus with hyperglycemia, without long-term current use of insulin POCT GLYCOSYLATED HEMOGLOBIN (HGB A1C) Routine 11/11/2020 2:29 PM EDT Type 2 diabetes mellitus with hyperglycemia, without long-term current use of insulin documented in this encounter Results * POC Glycosylated Hemoglobin (Hb A1C) (11/11/2020 2:29 PM EDT) Hemoglobin A1C 8.3 % [facility] Lot Number [id number] [facility] Expiration Date 07/08/2022 [facility] Blood 11/11/2020 2:29 PM EDT Martha Naik MD POINT OF CARE TEST ORDERABLES Final Result [facility]
[address] [place] [address], * (ABNORMAL) POC Glucose, Blood (11/11/2020 2:29 PM EDT) Glucose 252(A) 70 - 130 mg/dL Lot Number [id number] Expiration Date 06/05/2021 Blood 11/11/2020 2:29 PM EDT Martha Naik MD POINT OF CARE TEST ORDERABLES Final Result documented in this encounter Visit Diagnoses Diagnosis Type 2 diabetes mellitus with hyperglycemia, without long-term current use of insulin- Primary Polycystic ovaries Hyperthyroidism Thyrotoxicosis without mention of goiter or other cause, without mention of thyrotoxic crisis or storm documented in this encounter Care Teams Academy Education Director Relationship Specialty Start Date End Date Maine Leblanc PA [address] [place] [address] PCP - General 09/25/15 03/05/21 documented as of this encounter
--- OUTSIDE RECORDS SUMMARY | 2024-06-26 16:06 | XMS_ITS | Encounter Summary ---
[facility] Address [address] [place] [address] Care Team Providers Care Boiler Mechanic Name Role Phone Yogi Abdul MD Primary Care Provider [phone] Encounter Details Date Type Department Care Team (Late st Contact Info) Description 09/28/2021 10:00 AM EST Lab [facility] [address] [address] Numbness in feet Social History [...] Progress Notes * Rosemarie Patricia APRN - 09/28/2021 10:00 AM EST Please let patient know folic acid and vitamin B12 levels were normal range There are still couple labs pending, we will contact her when they are resulted * Rosemarie Patricia APRN - 09/28/2021 10:00 AM EST Please let patient know that her immunofixation study, one test we do for neuropathy showed no abnormalities * Rosemarie Patricia APRN - 09/28/2021 10:00 AM EST Please let patient know her vitamin B6 level is in normal range documented in this encounter Plan of Treatment Not on file documented as of this encounter Procedures Procedure Name Priority Date/Time Associated Diagnosis Comments VITAMIN B12 AND FOLATE Routine 9:38 AM EST Numbness in feet METHYLMALONIC ACID, SERUM Routine 09/28/2021 9:38 AM EST Numbness in feet IMMUNOFIXATION ELECTROPHORESIS Routine 09/28/2021 9:38 AM EST Numbness in feet VITAMIN B6 Routine 09/28/2021 9:38 AM EST Numbness in feet documented in this encounter Results * IVONNE + PE (09/28/2021 9:38 AM [...] g/dL 09/29/2021 2:10 PM EST [facility] Ddlky-1-Qmgxkxvs 0.2 0.0 - 0.4 g/dL 09/29/2021 2:10 PM EST [facility] Qijks-8-Osbyazpt 0.7 0.4 - 1.0 g/dL 09/29/2021 2:10 [...] scan will follow via computer, mail, or chip mixer delivery. Blood Venipuncture / Unknown 09/28/2021 9:38 AM EST 09/28/2021 9:38 AM EST Narrative [facility] - 09/29/2021 2:10 PM EST Performed at: ??01 - [address] ??[id number] Cheese Pancake Roller: Reg Singh PhD, Phone: ??[phone] Rosemarie Patricia ELECTRIC MILKERS INSTALLER LAB BLOOD ORDERABLES Final Result Performing Organization Address City/State/[facility] Co de Phone Number [facility] [address] [place] [address], * Vitamin B6 (09/28/2021 9:38 AM EST) Vitamin B6 7.9 2.0 - 32.8 ug/L 10/01/2021 3:09 PM EST [facility] Comment: Effective October 26, 2021 Vitamin B6 reference ??interval will be changing to: ?3.4 - 65.2 ug/L ?Deficiency: ? < 3.4 ?Marginal: ?3.4 - ??5.1 ?Adequate: ? > 5.1 Blood Venipuncture / Unknown 09/28/2021 9:38 AM EST 09/28/2021 9:38 AM EST [facility] - 10/01/2021 3:09 PM EST Test(s) 413564-Uylurat B6 was developed and its performance characteristics determined by [facility]. It has not been cleared or approved by the Food and Drug Administration. Performed at: ??01 - [address] ??[id number] Cheese Pancake Roller: Annamarie Irvin MD, Phone: ??[phone] Rosemarie Patricia APRN LAB BLOOD ORDERABLES Final Result Performing Organization Address [facility] de Phone Number [facility] [address] [place] [address], * Vitamin B12 & Folate (09/28/2021 9:38 AM EST) Pathologist [facility] Folate 6.38 4.78 - 24.20 ng/mL 09/29/2021 12:30 AM EST [facility] Vitamin B-12 403 211 - 946 pg/mL 09/29/2021 12:30 AM EST [facility] Blood Venipuncture / Unknown 09/28/2021 9:38 AM EST 09/28/2021 9:38 AM EST Narrative [facility] - 09/29/2021 12:30 AM EST Results may be falsely increased if patient taking Biotin. Rosemarie Patricia APRN LAB BLOOD ORDERABLES Final Result Performing Organization Address City/[facility]/ZIP Co de Phone Number [facility]
[address] [place] [address], [place] [phone] * Methylmalonic Acid, Serum (09/28/2021 9:38 AM EST) Methylmalonic Acid 128 0 - 378 nmol/L 10/01/2021 11:10 AM EST [facility] Blood Venipuncture / Unknown 09/28/2021 9:38 AM EST 09/28/2021 9:38 AM EST Narrative [facility] - 10/01/2021 11:10 AM EST Test(s) 066416-Cefqsezofiayv Acid, Serum was developed and its performance characteristics determined by [facility]. It has not been cleared or approved by the Food and Drug Administration. Performed at: ??01 - [facility] ??[id number] Cheese Pancake Roller: Annamarie Irvin MD, Phone: ??[phone] Rosemarie Patricia APRN LAB BLOOD ORDERABLES Final Result [facility] [address] [place] [address], [place] [phone] documented in this encounter Visit Diagnoses Diagnosis Numbness in feet documented in this encounter Care Teams Boiler Mechanic Relationship Specialty Start Date End Date Yogi Abdul MD [address] [place] [address] PCP - General Family Medicine 03/06/21 documented as of this encounter
--- OUTSIDE RECORDS SUMMARY | 2024-06-26 16:06 | XMS_ITS | Encounter Summary ---
[facility] Address [address] [place] [address] Care Team Providers Care Clinic Receptionist Name Role Phone Maine Leblanc Primary Care Provide r Encounter Details Date Type Department Care Team (Late st Contact Info) Description 11/11/2020 3:10 PM EDT Lab [facility] [address] [facility] [address] [place] [address] Type 2 diabetes mellitus with hyperglycemia, without long-term current use of insulin; Thyroiditis Social History Tobacco Use Types Packs/Day Years [...] Priority Date/Time Associated Diagnosis Comments TSH Routine 11/11/2020 2:57 PM EDT Thyroiditis T4, FREE Routine 11/11/2020 2:57 PM EDT Thyroiditis HEMOGLOBIN A1C Routine 11/11/2020 2:57 PM EDT Type 2 diabetes mellitus with hyperglycemia, without long-term current use of insulin COMPREHENSIVE METABOLIC PANEL Routine 11/11/2020 2:57 PM EDT Type 2 diabetes mellitus with hyperglycemia, without long-term current use of insulin documented in this encounter Results * (ABNORMAL) Comprehensive Metabolic Panel (11/11/2020 2:57 PM EDT) Glucose 228(H) 65 - 99 mg/dL 11/11/2020 11:47 PM EDT [facility] BUN 10 6 - 20 mg/dL 11/11/2020 11:47 PM EDT [facility] Creatinine 0.73 0.57 - 1.00 mg/dL 11/11/2020 11:47 PM T [facility] Sodium 136 136 - 145 mmol/L 11/11/2020 11:47 PM T [facility] Potassium 4.2 3.5 - 5.2 mmol/L 11/11/2020 11:47 PM T [facility] Chloride 101 98 - 107 mmol/L 11/11/2020 11:47 PM T [facility] CO2 23.4 22.0 - 29.0 mmol/L 11/11/2020 11:47 PM T [facility] Calcium 9.3 8.6 - 10.5 mg/dL 11/11/2020 11:47 PM T [facility] Total Protein 7.0 6.0 - 8.5 g/dL 11/11/2020 11:47 PM T [facility] Albumin 4.10 3.50 - 5.20 g/dL 11/11/2020 11:47 PM EDT [facility] ALT (SGPT) 25 1 - 33 U/L 11/11/2020 11:47 PM T [facility] AST (SGOT) 15 1 - 32 U/L 11/11/2020 11:47 PM T [facility] Alkaline Phosphatase 91 39 - 117 U/L 11/11/2020 11:47 PM T [facility] Total Bilirubin 0.2 0.0 - 1.2 mg/dL 11/11/2020 11:47 PM EDT [facility] eGFR Non Amer 92 >60 mL/min/1.7 3 11/11/2020 11:47 PM EDT [facility] Globulin 2.9 gm/dL 11/11/2020 11:47 PM EDT [facility] A/G Ratio 1.4 g/dL 11/11/2020 11:47 PM EDT [facility] BUN/Creatinine Ratio 13.7 7.0 - 25.0 11/11/2020 11:47 PM EDT [facility] Anion Gap 11.6 5.0 - 15.0 mmol/L 11/11/2020 11:47 PM EDT [facility] Blood Venipuncture / Unknown 11/11/2020 2:57 PM EDT 11/11/2020 2:57 PM EDT [facility] - 11/11/2020 11:47 PM EDT GFR Normal >60 Chronic Kidney Disease <60 Kidney Failure <15 us Martha Naik MD LAB BLOOD ORDERABLES Final Res ult Performing Organization Address City/[facility]/ZIP Co de Phone Number [facility]
[address] [place] [address], * T4, Free (11/11/2020 2:57 PM EDT) Free T4 1.09 0.93 - 1.70 ng/dL 11/12/2020 12:09 AM EDT [facility] Blood Venipuncture / Unknown 11/11/2020 2:57 PM EDT 11/11/2020 2:57 PM EDT [facility] - 11/12/2020 12:09 AM EDT Results may be falsely increased if patient taking Biotin. Martha Naik MD LAB BLOOD ORDERABLES Final Res ult [facility]
[address] [place] [address], * TSH (11/11/2020 2:57 PM EDT) TSH 2.160 0.270 - 4.200 uIU/mL 11/12/2020 12:09 AM EDT [facility] Blood Venipuncture / Unknown 11/11/2020 2:57 PM EDT 11/11/2020 2:57 PM EDT Martha Naik MD LAB BLOOD ORDERABLES Final Res ult Performing Organization Address [facility] Co de Phone Number [facility]
[address] [place] [address], * (ABNORMAL) Hemoglobin A1c (11/11/2020 2:57 PM EDT) Pathologist [facility] Hemoglobin A1C 8.25(H) 4.80 - 5.60 % 11/11/2020 11:11 PM EDT [facility] Blood Venipuncture / Unknown 11/11/2020 2:57 PM EDT 11/11/2020 2:57 PM EDT Narrative [facility] - 11/11/2020 11:11 PM EDT Hemoglobin A1C Ranges: Increased Risk for Diabetes ??5.7% to 6.4% Diabetes ? >= 6.5% Diabetic Goal ?< 7.0% us Martha Naik MD LAB BLOOD ORDERABLES Final Res ult Performing Organization Address [facility] Co de Phone Number [facility]
[address] [place] [address], documented in this encounter Visit Diagnoses Diagnosis Type 2 diabetes mellitus with hyperglycemia, without long-term current use of insulin Thyroiditis Unspecified thyroiditis documented in this encounter Care Teams Clinic Receptionist Relationship Specialty Start Date End Date Maine Leblanc PA [address] [place] [address] PCP - General 09/25/15 03/05/21 documented as of this encounter
--- OUTSIDE RECORDS SUMMARY | 2024-06-26 16:06 | XMS_ITS | Encounter Summary ---
[facility] Address [address] [place] [address] Care Team Providers Care Plaster Pattern Caster Name Role Phone Maine Leblanc Primary Care Provide r Encounter Details Date Type Department Care Team (Late st Contact Info) Description 12/05/2020 Telephone [facility] [address] [place] [address] Martha Grajeda MD [address] [place], [place] [id number] Social History Tobacco Use Types Packs/Day Years [...] * Telephone Encounter - Michelle Gee - 12/08/2020 3:12 PM EDT [facility] * Telephone Encounter - Martha Grajeda MD - 12/07/2020 12:19 PM EDT It is ok to take COVID vaccine * Telephone Encounter - Analilia Issa MA - 12/05/2020 8:[address] Grajeda, please advise. Thank you. * Telephone Encounter - Celeste Elise RegSched Rep - 12/05/2020 8:53 AM EDT Patient called, wanting to know if it is okay to take the COVID vaccine due to her having type2 diabetes. Please give patient a call documented in this encounter Plan of Treatment Not on file documented as of this encounter Visit Diagnoses Not on filedocumented in this encounter Care Teams Plaster Pattern Caster Relationship Specialty Start Date End Date Maine Leblanc PA [address] [place] [address] PCP - General 09/25/15 03/05/21 documented as of this encounter
--- OUTSIDE RECORDS SUMMARY | 2024-06-26 16:07 | XMS_ITS | Encounter Summary ---
[facility] Address [address] [place] [address] Care Team Providers Care Business System Manager Name Role Phone Maine Leblanc Primary Care Provide r Reason for Visit * Reason Comments Diabetes Dm 2 f/u Hyperthyroidism f/u Encounter Details Date Type Department Care Team (Late st Contact Info) Description 08/15/2018 8:00 AM EST Office Visit [facility] ENDOCRINOLOGY [address] [place] [address] Martha Grajeda MD [address] [place] [address] Type 2 diabetes mellitus without complication, unspecified whether intermediate accountant insulin use (Primary Dx); Hyperthyroidism; Type 2 diabetes mellitus without complication; , unspecified gestational age Social History Tobacco Use Types Packs/Day Years Used Date Smoking Tobacco: Former Cigarettes Smokeless Tobacco: Never Alcohol Use Standard Drinks/Week Comments No 0 (1 standard drink = 0.6 oz pur e alcohol) Comments Yes Sex and Gender Information Value Date Recorded Sex Assigned at Not on file Legal Sex Female 12:43 PM EDT Gender Identity Not on file Sexual Orientation Not on file documented as of this encounter Last Filed Vital Signs Vital Sign Reading Time Taken Comments Blood Pressure 122/82 08/15/2018 7:54 AM EST Pulse 78 08/15/2018 7:54 AM EST Temperature - - Respiratory Rate - - Oxygen Saturation 99% 08/15/2018 7:54 AM EST Inhaled Oxygen Concentration - - Weight 129 kg (284 lb) 08/15/2018 7:54 AM EST Height 172.7 cm (5' 8 ) 08/15/2018 7:54 AM EST Body Mass Index 43.18 08/15/2018 7:54 AM EST documented in this encounter Progress Notes * Martha Grajeda MD - 08/15/2018 8:00 AM EST Chief complaint Diabetes (Dm 2 f/u ) and Hyperthyroidism (f/u ) Subjective Pat Murphy is a 28 y.o. female is here today for follow-up. Diabetes mellitus type 2 diagnosed 09/15/15. Reports having gestational DM with first ; took Glyburide during that time. Meds: metformin ER 500 mg - 2 tablets bid with food. We have added glimepiride Monitoring - 3x daily, since she started carb counting and following the diet her glucose improved.Glucometer reviewed and data is 92 -120. Occasionally 140. Exercised regularly and walks. She has positive prgenancy test Past meds: Took Januvia 100 mg for about a month, discontinued due to hypoglycemia. Glyburide was used during . March 2017 she was diagnosed with hyperthyroidism TSH was < 0.004 and free T4 of 1.63. TSI antibodies were positive at 486. she underwent thyroid uptake and scan 04/29/2017 which showed normal thyroid uptake of 36%. Heterogenous uptake in the right inferior thyroid, otherwise normal thyroid scan 25 mg BID PTU She is undergoing family planning. Quit smoking 21 days ago. Doing well. She has a positive test, made appointment with the oBGYN Medications Current Outpatient Medications: ??? metFORMIN ER (GLUCOPHAGE-XR) 500 MG 24 hr tablet, 2 tablets bid with food, Disp: 120 tablet, Rfl: 11 ??? MV-Min-Fe Fum-FA-DHA ( 1 PO), Take by mouth Daily., Disp: , Rfl: ??? propylthiouracil (PTU) 50 MG tablet, Take 0.5 tablets by mouth 2 (Two) Times a Day., Disp: 30 tablet, Rfl: 11 ??? glyBURIDE (DIAbeta) 2.5 MG tablet, Take 1 tablet by mouth Daily With Breakfast. 1-2 tablets daily, Disp: 60 tablet, Rfl: 11 PMH The following portions of the patient's history were reviewed and updated as appropriate: allergies, current medications, past family history, past medical history, past social history, past surgicalhistory and problem list. Review of systems Review of Systems Constitutional: Positive for fatigue. All other systems reviewed and are negative. Physical exam Objective Blood pressure 122/82, pulse 78, height 172.7 cm (68 ), weight 129 kg (284 lb), last menstrual period 07/10/2018, SpO2 99 %, not currently . Physical Exam Constitutional: She is oriented to person, place, and time. She appears well- developed and well-nourished. Morbidly obese HENT: Head: Normocephalic and atraumatic. Eyes: Conjunctivae and EOM are normal. Pupils are equal, round, and reactive to light. Neck: Normal range of motion. Neck supple. No tracheal deviation present. No thyromegaly present. Cardiovascular: Normal rate, regular rhythm, normal heart sounds and intact distal pulses. Pulmonary/Chest: Effort normal and breath sounds normal. Musculoskeletal: Normal range of motion. She exhibits no edema, tenderness or deformity. Neurological: She is alert and oriented to person, place, and time. She has normal reflexes. Skin: Skin is warm and dry. Psychiatric: She has a normal mood and affect. Her behavior is normal. Judgment and thought contentnormal. Nursing note and vitals reviewed. LABS AND IMAGING Office Visit on 08/15/2018 Component Date Value Ref Range Status ??? Glucose 08/15/2018 127 70 - 130 mg/dL Final ??? Hemoglobin A1C 08/15/2018 6.0 % Final ??? Glucose 08/15/2018 106* 70 - 100 mg/dL Final ??? BUN 08/15/2018 8* 9 - 23 mg/dL Final ??? Creatinine 08/15/2018 0.74 0.60 - 1.30 mg/dL Final ??? Sodium 08/15/2018 137 132 - 146 mmol/L Final ??? Potassium 08/15/2018 4.4 3.5 - 5.5 mmol/L Final ??? Chloride 08/15/2018 106 99 - 109 mmol/L Final ??? CO2 08/15/2018 28.0 20.0 - 31.0 mmol/L Final ??? Calcium 08/15/2018 8.9 8.7 - 10.4 mg/dL Final ??? Total Protein 08/15/2018 6.4 5.7 - 8.2 g/dL Final ??? Albumin 08/15/2018 4.28 3.20 - 4.80 g/dL Final ??? ALT (SGPT) 08/15/2018 46* 7 - 40 U/L Final ??? AST (SGOT) 08/15/2018 28 0 - 33 U/L Final ??? Alkaline Phosphatase 08/15/2018 66 25 - 100 U/L Final ??? Total Bilirubin 08/15/2018 0.3 0.3 - 1.2 mg/dL Final ? ? eGFR Non Amer 08/15/2018 92 >60 mL/min/1.73 Final ??? Globulin 08/15/2018 2.1 gm/dL Final ??? A/G Ratio 08/15/2018 2.0 1.5 - 2.5 g/dL Final ??? BUN/Creatinine Ratio 08/15/2018 10.8 7.0 - 25.0 Final ??? Anion Gap 08/15/2018 3.0 3.0 - 11.0 mmol/L Final ??? TSH 08/15/2018 4.884 0.350 - 5.350 mIU/mL Final ??? Free T4 08/15/2018 1.24 0.89 - 1.76 ng/dL Final ??? WBC 08/15/2018 10.85* 3.50 - 10.80 10*3/mm3 Final ??? RBC 08/15/2018 4.28 3.89 - 5.14 10*6/mm3 Final ??? Hemoglobin 08/15/2018 13.5 11.5 - 15.5 g/dL Final ??? Hematocrit 08/15/2018 40.0 34.5 - 44.0 % Final ??? MCV 08/15/2018 93.5 80.0 - 99.0 fL Final ??? MCH 08/15/2018 31.5* 27.0 - 31.0 pg Final ??? MCHC 08/15/2018 33.8 32.0 - 36.0 g/dL Final ??? RDW 08/15/2018 12.6 11.3 - 14.5 % Final ??? RDW-SD 08/15/2018 42.9 37.0 - 54.0 fl Final ??? MPV 08/15/2018 10.1 6.0 - 12.0 fL Final ??? Platelets 08/15/2018 374 150 - 450 10*3/mm3 Final NM THYROID UPTAKE AND SCAN 04/28/2017 IMPRESSION: 1. Four hour and 24-hour thyroid uptake appear within normal limits. 36% at 24 hours. 2. Slightly heterogeneous uptake pattern in the inferior right thyroid lobe, otherwise normal appearing thyroid scan. Assessment Assessment/Plan Problem List Items Addressed This Visit Endocrine Diabetes mellitus (CMS/HCC) - Primary Relevant Medications metFORMIN ER (GLUCOPHAGE-XR) 500 MG 24 hr tablet glyBURIDE (DIAbeta) 2.5 MG tablet Other Relevant Orders POC Glucose Fingerstick (Completed) POC Glycosylated Hemoglobin (Hb A1C) (Completed) Comprehensive Metabolic Panel (Completed) CBC (No Diff) (Completed) Hyperthyroidism Relevant Medications propylthiouracil (PTU) 50 MG tablet Other Relevant Orders TSH (Completed) T4, Free (Completed) Other Other Visit Diagnoses Type 2 diabetes mellitus without complication (CMS/HCC) Relevant Medications metFORMIN ER (GLUCOPHAGE-XR) 500 MG 24 hr tablet glyBURIDE (DIAbeta) 2.5 MG tablet Other Relevant Orders POC Glucose Fingerstick (Completed) POC Glycosylated Hemoglobin (Hb A1C) (Completed) Comprehensive Metabolic Panel (Completed) CBC (No Diff) (Completed) Plan Glucose goals reviewed. Continue metformin 1000 mg BID, glyburide 2.5 daily. meds refilled. A1C is 6.0, glucose goals reviewed and the plan discussed. Cont with carb consistent diet and exercise, the importance of lifestyle modifications revisited. Monitor multiple times a day Repeat TFT and I will advice on PTU dose. I have recommended to cont 25 mg BID, will attempt to stop this medication. Usually Graves disease go into remission with the and her disease was not significant. She has appt with OB this week, I will send her a copy of labs as soon as available. . Smoking cessation reviewed and I congratulated her on the success. I have briefly reviewed tools tohelp with cravings. 4 min spent counseling. Follow-up in 2-3 months. Addendum: thyroid function is on the low side, discontinue PTU and monitor thyroid labs. Repeat labs in 2 months documented in this encounter Plan of Treatment Not on file documented as of this encounter Procedures Procedure Name Priority Date/Time Associated Diagnosis Comments CBC (NO DIFF) Routine 08/15/2018 8:42 AM EST Type 2 diabetes mellitus without complication, unspecified whether intermediate accountant insulin use TSH Routine 08/15/2018 8:42 AM EST Hyperthyroidism T4, FREE Routine 08/15/2018 8:42 AM EST Hyperthyroidism COMPREHENSIVE METABOLIC PANEL Routine 08/15/2018 8:42 AM EST Type 2 diabetes mellitus without complication, unspecified whether fpc insulin use POCT GLYCOSYLATED HEMOGLOBIN (HGB A1C) Routine 08/15/2018 8:19 AM EST Type 2 diabetes mellitus without complication, unspecified whether fpc insulin use POCT GLUCOSE FINGERSTICK Routine 08/15/2018 8:19 AM EST Type 2 diabetes mellitus without complication, unspecified whether fpc insulin use documented in this encounter Results * (ABNORMAL) CBC (No Diff) (08/15/2018 8:42 AM EST) WBC 10.85(H) 3.50 - 10.80 10*3/mm3 08/15/2018 11:54 AM EST [facility] RBC 4.28 3.89 - 5.14 10*6/mm3 08/15/2018 11:54 AM EST [facility] Hemoglobin 13.5 11.5 - 15.5 g/dL 08/15/2018 11:54 AM [facility] Hematocrit 40.0 34.5 - 44.0 % 08/15/2018 11:54 AM [facility] MCV 93.5 80.0 - 99.0 fL 08/15/2018 11:54 AM [facility] MCH 31.5(H) 27.0 - 31.0 pg 08/15/2018 11:54 AM [facility] MCHC 33.8 32.0 - 36.0 g/dL 08/15/2018 11:54 AM [facility] RDW 12.6 11.3 - 14.5 % 08/15/2018 11:54 AM [facility] RDW-SD 42.9 37.0 - 54.0 fl 08/15/2018 11:54 AM [facility] MPV 10.1 6.0 - 12.0 fL 08/15/2018 11:54 AM [facility] Platelets 374 150 - 450 10*3/mm3 08/15/2018 11:54 AM [facility] Blood Venipuncture / Unknown 08/15/2018 8:42 AM EST 08/15/2018 8:42 AM EST Martha Naik MD LAB BLOOD ORDERABLES Final Res ult Performing Organization Address City/[facility]/ZIP Co de Phone Number [facility]
[address] [place] [address], * T4, Free (08/15/2018 8:42 AM EST) Free T4 1.24 0.89 - 1.76 ng/dL 08/15/2018 12:17 PM [facility] Blood Venipuncture / Unknown 08/15/2018 8:42 AM EST 08/15/2018 8:42 AM EST Martha Naik MD LAB BLOOD ORDERABLES Final Res ult [facility]
[address] [place] [address], * TSH (08/15/2018 8:42 AM EST) TSH 4.884 0.350 - 5.350 mIU/mL 08/15/2018 12:17 PM [facility] Blood Venipuncture / Unknown 08/15/2018 8:42 AM EST 08/15/2018 8:42 AM EST us Martha Naik MD LAB BLOOD ORDERABLES Final Res ult [facility]
[address] [place] [address], * (ABNORMAL) Comprehensive Metabolic Panel (08/15/2018 8:42 AM EST) Glucose 106(H) 70 - 100 mg/dL 08/15/2018 12:17 PM EST [facility] BUN 8(L) 9 - 23 mg/dL 08/15/2018 12:17 PM [facility] Creatinine 0.74 0.60 - 1.30 mg/dL 08/15/2018 12:17 PM [facility] Sodium 137 132 - 146 mmol/L 08/15/2018 12:17 PM [facility] Potassium 4.4 3.5 - 5.5 mmol/L 08/15/2018 12:17 PM [facility] Chloride 106 99 - 109 mmol/L 08/15/2018 12:17 PM EST [facility] CO2 28.0 20.0 - 31.0 mmol/L 08/15/2018 12:17 PM [facility] Calcium 8.9 8.7 - 10.4 mg/dL 08/15/2018 12:17 PM EST [facility] Total Protein 6.4 5.7 - 8.2 g/dL 08/15/2018 12:17 PM [facility] Albumin 4.28 3.20 - 4.80 g/dL 08/15/2018 12:17 PM EST [facility] ALT (SGPT) 46(H) 7 - 40 U/L 08/15/2018 12:17 PM [facility] AST (SGOT) 28 0 - 33 U/L 08/15/2018 12:17 PM [facility] Alkaline Phosphatase 66 25 - 100 U/L 08/15/2018 12:17 PM [facility] Total Bilirubin 0.3 0.3 - 1.2 mg/dL 08/15/2018 12:17 PM EST [facility] eGFR Non Amer 92 >60 mL/min/1.7 3 08/15/2018 12:17 PM EST [facility] Globulin 2.1 gm/dL 08/15/2018 12:17 PM EST [facility] A/G Ratio 2.0 1.5 - 2.5 g/dL 08/15/2018 12:17 PM EST [facility] BUN/Creatinine Ratio 10.8 7.0 - 25.0 08/15/2018 12:17 PM EST [facility] Anion Gap 3.0 3.0 - 11.0 mmol/L 08/15/2018 12:17 PM EST [facility] Blood Venipuncture / Unknown 08/15/2018 8:42 AM EST 08/15/2018 8:42 AM EST Narrative [facility] - 08/15/2018 12:17 PM EST National Kid[employer] Guidelines Stage ? Description ?GFR 1 ? Normal or High ? 90+ 2 ? Mild decrease ?60-89 3 ? Moderate decrease ??30-59 4 ? Severe decrease ?15-29 5 ? Kidney failure ? <15 The MDRD GFR formula is only valid for adults with stable renal function between ages 18 and 70. us Martha Naik MD LAB BLOOD ORDERABLES Final Res ult [facility]
[address] [place] [address], * POC Glycosylated Hemoglobin (Hb A1C) (08/15/2018 8:19 AM EST) Hemoglobin A1C 6.0 % [facility] Blood 08/15/2018 8:19 AM EST Martha Naik MD POINT OF CARE TEST ORDERABLES Final Result Performing Organization Address City/[facility] Co de Phone Number [facility]
[address] [place] [address], [place] [phone] * POC Glucose Fingerstick (08/15/2018 8:19 AM EST) Glucose 127 70 - 130 mg/dL [facility] Blood 08/15/2018 8:19 AM EST Martha Naik MD POINT OF CARE TEST ORDERABLES Final Result Performing Organization Address [facility] Phone Number [facility]
[address] [place] [address], [place] [phone] documented in this encounter Visit Diagnoses Diagnosis Type 2 diabetes mellitus without complication, unspecified whether fpc insulin use- Primary Hyperthyroidism Thyrotoxicosis without mention of goiter or other cause, without mention of thyrotoxic crisis or storm , unspecified gestational age documented in this encounter Care Teams Business System Manager Relationship Specialty Start Date End Date Maine Leblanc PA [address] [place], [place] [phone] PCP - General 09/25/15 03/05/21 documented as of this encounter
--- OUTSIDE RECORDS SUMMARY | 2024-06-26 16:07 | XMS_ITS | Encounter Summary ---
[facility] Address [address] [place] [address] Care Team Providers Care Second Crusher Name Role Phone Maine Leblanc Primary Care Provide r Encounter Details Date Type Department Care Team (Late st Contact Info) Description 01/23/2019 9:45 AM EDT Lab [facility] INTERNAL MEDICINE [address] [place] [phone] Abnormal thyroid function test Social History Tobacco Use Types Packs/Day Years [...] Procedure Name Priority Date/Time Associated Diagnosis Comments T3, FREE Routine 01/23/2019 10:00 AM EDT Abnormal thyroid function test TSH Routine 01/23/2019 10:00 AM EDT Abnormal thyroid function test T4, FREE Routine 01/23/2019 10:00 AM EDT Abnormal thyroid function test documented in this encounter Results * T3, Free (01/23/2019 10:00 AM EDT) T3, Free 2.99 2.00 - 4.40 pg/mL 01/23/2019 7:47 PM EDT [facility] Blood Venipuncture / Unknown 01/23/2019 10:00 AM EDT 01/23/2019 10:00 AM EDT us Riccardo Mayeric PA-C LAB BLOOD ORDERABLES Final Result [facility]
[address] [place] [address], * (ABNORMAL) T4, Free (01/23/2019 10:00 AM EDT) Free T4 0.86(L) 0.93 - 1.70 ng/dL 01/23/2019 7:47 PM EDT [facility] Blood Venipuncture / Unknown 01/23/2019 10:00 AM EDT 01/23/2019 10:00 AM EDT Temitopeduane Herreramichic PA-C LAB BLOOD ORDERABLES Final Result Performing Organization Address City/[facility]/ZIP Co de Phone Number [facility]
[address] [place] [address], * TSH (01/23/2019 10:00 AM EDT) TSH 2.310 0.270 - 4.200 mIU/mL 01/23/2019 7:47 PM EDT [facility] Blood Venipuncture / Unknown 01/23/2019 10:00 AM EDT 01/23/2019 10:00 AM EDT Riccardo Herreraezevic PA-C LAB BLOOD ORDERABLES Final Result [facility]
[address] [place] [address], documented in this encounter Visit Diagnoses Diagnosis Abnormal thyroid function test Nonspecific abnormal results of thyroid function study documented in this encounter Care Teams Second Crusher Relationship Specialty Start Date End Date Maine Leblanc PA [address] [place] [address] PCP - General 09/25/15 03/05/21 documented as of this encounter
--- OUTSIDE RECORDS SUMMARY | 2024-06-26 16:07 | XMS_ITS | Encounter Summary ---
[facility] Address [address] [place] [address] Care Team Providers Care Sausage Machine Operator Name Role Phone Maine Leblanc Primary Care Provide r Encounter Details Date Type Department Care Team ([facility] st Contact Info) Description 03/13/2018 Telephone [facility] INTERNAL MEDICINE [address] [place] [phone] Martha Grajeda MD [address] [place] [address] Social History Tobacco Use Types Packs/Day Years Used Date Smoking Tobacco: Former Cigarettes Alcohol Use Standard Drinks/Week Comments No 0 (1 standard drink = 0.6 oz pur e alcohol) Comments Unknown Sex and Gender Information Value Date Recorded Sex Assigned at Not on file Legal Sex Female 12:43 PM EDT Gender Identity Not on file Sexual Orientation Not on file documented as of this encounter Miscellaneous Notes * Telephone Encounter - Janessa Davenport MA - 03/13/2018 3:24 PM EDT SPoke with patient and went over foods she was eating and what she can eat. Stated would bring her reading at appt next wekk. * Telephone Encounter - Janessa Davenport MA - 03/13/2018 1:53 PM EDT Returned patient call, I asked her to return my call and advise on the name of the RX she has started and also to make certain she brings her Blood Sugar logs or meter with her at her appt next Tuesday, so Taras Jack can more easily access as to why * Telephone Encounter - Robyn Garcia - 03/13/2018 12:39 PM EDT PT CALLED AND STATED THAT IF SHE DOESN'T EAT ENOUGH HER SUGAR SHOOTS UP TO 200; SHE JUST STARTED A NEW MEDICINE AND WANTS TO KNOW IF THAT'S NORMAL; PLEASE CALL PT documented in this encounter Plan of Treatment Not on file documented as of this encounter Visit Diagnoses Not on filedocumented in this encounter Care Teams Sausage Machine Operator Relationship Specialty Start Date End Date Maine Leblanc PA [address] [place] [address] PCP - General 09/25/15 03/05/21 documented as of this encounter
--- OUTSIDE RECORDS SUMMARY | 2024-06-26 16:07 | XMS_ITS | Encounter Summary ---
[facility] Address [address] [place] [address] Care Team Providers Care Geosciences Associate Professor Name Role Phone Maine Leblanc Primary Care Provide r Encounter Details Date Type Department Care Team (Late st Contact Info) Description 01/28/2020 Telephone [facility] ENDOCRINOLOGY [address] [place] [phone] Martha Grajeda MD [address] [place], [place] [id number] Social History Tobacco Use Types Packs/Day Years [...] Telephone Encounter - Janessa Davenport MA - 01/30/2020 10:49 AM EDT Returned patient call, answered question * Telephone Encounter - Sherine Stewart - 01/29/2020 2:18 PM EDT Pt called us back please call [phone] * Telephone Encounter - Refugio Donahue MA - 01/29/2020 11:[address] Grajeda a message concerning this. * Telephone Encounter - Sherine Stewart - 01/28/2020 9:22 AM EDT PLEASE CALL PT SHE IS HAVING PROBLEMS WITH HER BLOOD SUGARS THEY HAVE BEEN RUNNING 200 TO 300. SHE HAD LABS HER A1C WAS HIGH AND SHE WAS TOLD TO CALL US SHE TAKES LANTUS INSULIN AND ALSO WHEN SHE EATS AND EXERCISES ITS SEEMS TO BE HIGH PLEASE CALL PT [phone] documented in this encounter Plan of Treatment Not on file documented as of this encounter Visit Diagnoses Not on filedocumented in this encounter Care Teams Geosciences Associate Professor Relationship Specialty Start Date End Date Maine Leblanc PA [address] [place] [address] PCP - General 09/25/15 03/05/21 documented as of this encounter
--- OUTSIDE RECORDS SUMMARY | 2024-06-26 16:07 | XMS_ITS | Encounter Summary ---
[facility] Address [address] [place] [address] Care Team Providers Care Ui Designer Name Role Phone Maine Leblanc Primary Care Provide r Reason for Visit * Reason Onset Date Comments Med Refill 01/02/2020 Encounter Details Date Type Department Care Team (Late st Contact Info) Description 01/02/2020 Refill [facility] ENDOCRINOLOGY [address] [place] [phone] Martha Grajeda MD [address] [place] [address] Social History Tobacco Use Types [...] Telephone Encounter - Janessa Davenport MA - 01/02/2020 8:06 AM EDT RX Change request from Kasandra to change to Regular Metformin and Not ER. Ok per Dr. Grajeda., RX E-Scripted documented in this encounter Plan of Treatment Not on file documented as of this encounter Visit Diagnoses Not on filedocumented in this encounter Care Teams Ui Designer Relationship Specialty Start Date End Date Maine Leblanc PA [address] [place], [place] [id number] PCP - General 09/25/15 03/05/21 documented as of this encounter
--- OUTSIDE RECORDS SUMMARY | 2024-06-26 16:07 | XMS_ITS | Encounter Summary ---
[facility] Address [address] [place] [address] Care Team Providers Care Business Operations Coordinator Name Role Phone Maine Leblanc Primary Care Provide r Reason for Visit * Reason Onset Date Comments DEXCOM 01/22/2020 GIBRAN Encounter Details Date Type Department Care Team (Late st Contact Info) Description 01/22/2020 Telephone [facility] ENDOCRINOLOGY [address] [place] [phone] Martha Grajeda MD [address] [place] [address] DEXCOM (GIBRAN) Social History Tobacco Use Types Packs/Day Years [...] encounter Miscellaneous Notes * Telephone Encounter - Martha Grajeda MD - 01/23/2020 2:05 PM EDT dexcom is sent to [facility] in [place]. It should be easier to have it covered * Telephone Encounter - Maritza Carrizales MA - 01/23/2020 9:09 AM EDT Called and spoke to patient, She states that she was interested in using the Dexcom but didn't know if it would be ok. She states that it is covered by her pharmacy benefits but she doesn't know how to go about getting it. She is just asking if it would be something in her best interest to use. She states that her father has one and it helps him control his sugars. * Telephone Encounter - Buffy Rahman - 01/22/2020 1:06 PM EDT PT HAS SOME QUESTIONS ABOUT DEXCOM AND WHETHER OR NOT IT WOULD BE BENEFICIAL FOR THE PT. PLEASE ADVISE. documented in this encounter Plan of Treatment Not on file documented as of this encounter Visit Diagnoses Not on filedocumented in this encounter Care Teams Business Operations Coordinator Relationship Specialty Start Date End Date Maine Leblanc PA [address] [place] [address] PCP - General 09/25/15 03/05/21 documented as of this encounter
--- OUTSIDE RECORDS SUMMARY | 2024-06-26 16:07 | XMS_ITS | Encounter Summary ---
[facility] [address] [place] [address] Care Team Providers Care Pmo Consultant Name Role Phone Maine Leblanc Primary Care Provide r Reason for Visit * Reason Comments Diabetes Follow UP OB switche d to Insulin due to high risk Graves' Disease Encounter Details Date Type Department Care Team (Late st Contact Info) Description 11/10/2018 12:15 PM EDT Office Visit [facility] ENDOCRINOLOGY [address] [facility] [address] [place] [phone] Martha Grajeda MD [address] [facility] [address] [place] [address] Type 2 diabetes mellitus with hyperglycemia, without long-term current use of insulin (Primary Dx); Hyperthyroidism; , unspecified gestational age Social History Tobacco [...] Reading Time Taken Comments Blood Pressure 118/80 11/10/2018 12:18 PM EDT Pulse 82 11/10/2018 12:18 PM EDT Temperature - - Respiratory Rate - - Oxygen Saturation 98% 11/10/2018 12:18 PM EDT Inhaled Oxygen Concentration - - Weight 125 kg (274 lb 9.6 oz) 11/10/2018 12:18 P M EDT Height 172.7 cm (5' 8 ) 11/10/2018 12:18 PM EDT Body Mass Index 41.75 11/10/2018 12:18 PM EDT documented in this encounter Patient Instructions * Patient Instructions* Martha Grajeda MD - 11/10/2018 12:15 PM EDT Results for orders placed or performed in visit on 11/10/18 POC Glucose Fingerstick Result Value Ref Range Glucose 120 70 - 130 mg/dL POC Glycosylated Hemoglobin (Hb A1C) Result Value Ref Range Hemoglobin A1C 5.2 % documented in this encounter Progress Notes * Martha Grajeda MD - 11/10/2018 12:15 PM EDT Chief complaint Diabetes (Follow UP OB switched to Insulin due to high risk ) and Graves' Disease Subjective Pat Murphy is a 28 y.o. female is here today for follow-up. Diabetes mellitus type 2 diagnosed 09/15/15. Reports having gestational DM with first ; took Glyburide during that time. Meds: prior to metformin ER 500 mg - 2 tablets bid with food. Her high school science tutor DR Amato added insulin and she has weekly glucose log book sent to her. She is currently takes Lantus 38 units and Humalog 14-18-14 units with meals. Monitoring - 3-4x daily. Since she started carb counting and following the diet her glucose improved. Exercised regularly and walks. Log book reviewed, glucose is at goal of therapy most of the time. March 2017 she was diagnosed with hyperthyroidism [...] of . Thyroid levels were tested with computer application developer Cha Osorio and levels were normal off the medication. She is doing well. No sx. Medications Current Outpatient Medications: ??? HUMALOG KWIKPEN 100 UNIT/ML solution pen-injector, , Disp: , Rfl: ??? LANTUS SOLOSTAR 100 UNIT/ML injection pen, , Disp: , Rfl: ??? MV-Min-Fe Fum-FA-DHA ( 1 PO), Take by mouth Daily., Disp: , Rfl: ??? vitamin D (ERGOCALCIFEROL) 48361 units capsule capsule, , Disp: , Rfl: PMH The following portions of the patient's history were reviewed and updated as appropriate: allergies, current medications, past family history, past medical history, past social history, past surgicalhistory and problem list. Review of systems Review of Systems Constitutional: Positive for fatigue. All other systems reviewed and are negative. Physical exam Objective Blood pressure 118/80, pulse 82, height 172.7 cm (68 ), weight 125 kg (274 lb 9.6 oz), last menstrual period 07/10/2018, SpO2 98 %, not currently . Physical Exam Constitutional: She is oriented to person, place, and time. She appears well- developed and well-nourished. Morbidly obese HENT: Head: Normocephalic and atraumatic. Eyes: Conjunctivae are normal. Neck: No thyromegaly present. Cardiovascular: Normal rate, regular rhythm, normal heart sounds and intact distal pulses. Pulmonary/Chest: Effort normal and breath sounds normal. Musculoskeletal: She exhibits no edema. Neurological: She is alert and oriented to person, place, and time. She has normal reflexes. Psychiatric: She has a normal mood and affect. Her behavior is normal. Judgment and thought contentnormal. Nursing note and vitals reviewed. LABS AND IMAGING Office Visit on 11/10/2018 Component Date Value Ref Range Status ??? Glucose 11/10/2018 120 70 - 130 mg/dL Final ??? Hemoglobin A1C 11/10/2018 5.2 % Final Office Visit on 10/22/2018 Component Date Value Ref Range Status ??? Rapid Influenza A Ag 10/22/2018 Negative Negative Final ??? Rapid Influenza B Ag 10/22/2018 Negative Negative Final ??? Internal Control 10/22/2018 Passed Passed Final ??? Lot Number 10/22/2018 [id number] Final ??? Expiration Date 10/22/2018 [id number] Final NM THYROID UPTAKE AND SCAN 04/28/2017 IMPRESSION: 1. Four hour and 24-hour thyroid uptake appear within normal limits. 36% at 24 hours. 2. Slightly heterogeneous uptake pattern in the inferior right thyroid lobe, otherwise normal appearing thyroid scan. Assessment Assessment/Plan Problem List Items Addressed This Visit Endocrine Diabetes mellitus (CMS/HCC) - Primary Relevant Orders POC Glucose Fingerstick (Completed) POC Glycosylated Hemoglobin (Hb A1C) (Completed) Hyperthyroidism Other Plan Glucose goals reviewed. Continue insulin and frequent monitoring. She is followed with high school science tutor on a weekly basis. A1C is 5.2, glucometer reviewed and she is at goal. Cont with carb consistent diet and exercise, the importance of lifestyle modifications revisited. Monitor multiple times a day Patient has TFT repeated with OB. Will request last labs. Graves disease may exacerbate in period/ I will schedule appointment since she is managed by Dr Amato and Cha Osorio closely. documented in this encounter Plan of Treatment Not on file documented as of this encounter Procedures Procedure Name Priority Date/Time Associated Diagnosis Comments POCT GLYCOSYLATED HEMOGLOBIN (HGB A1C) Routine 11/10/2018 12:26 PM EDT Type 2 diabetes mellitus with hyperglycemia, without long-term current use of insulin POCT GLUCOSE FINGERSTICK Routine 11/10/2018 12:25 PM EDT Type 2 diabetes mellitus with hyperglycemia, without long-term current use of insulin documented in this encounter Results * POC Glycosylated Hemoglobin (Hb A1C) (11/10/2018 12:26 PM EDT) Hemoglobin A1C 5.2 % [facility] Blood 11/10/2018 12:2 6 PM EDT us Martha Naik MD POINT OF CARE TEST ORDERABLES Final Result [facility]
[address] [place] [address], * POC Glucose Fingerstick (11/10/2018 12:25 PM EDT) Glucose 120 70 - 130 mg/dL [facility] Blood 11/10/2018 12:2 5 PM EDT us Martha Naik MD POINT OF CARE TEST ORDERABLES Final Result [facility]
[address] [place] [address], documented in this encounter Visit Diagnoses Diagnosis Type 2 diabetes mellitus with hyperglycemia, without long-term current use of insulin- Primary Hyperthyroidism Thyrotoxicosis without mention of goiter or other cause, without mention of thyrotoxic crisis or storm , unspecified gestational age documented in this encounter Care Teams Pmo Consultant Relationship Specialty Start Date End Date Maine Leblanc PA [address] [place] [address] PCP - General 09/25/15 03/05/21 documented as of this encounter
--- OUTSIDE RECORDS SUMMARY | 2024-06-26 16:07 | XMS_ITS | Encounter Summary ---
[facility] Address [address] [place] [address] Care Team Providers Care Head Filter Press Tender Name Role Phone Maine Leblanc Primary Care Provide r Encounter Details Date Type Department Care Team (Late st Contact Info) Description 10/03/2018 Telephone [facility] INTERNAL MEDICINE [address] [place] [phone] Martha Grajeda MD [address] [place] [address] Social History Tobacco Use Types Packs/Day Years Used Date Smoking Tobacco: Former Cigarettes Smokeless Tobacco: Never Alcohol Use Standard Drinks/Week Comments No 0 (1 standard drink = 0.6 oz pur e alcohol) PHQ-2 Answer Date Recorded PHQ-2 Score 1 05/15/2019 Comments Yes Sex and Gender Information Value Date Recorded Sex Assigned at Not on file Legal Sex Female 12:43 PM EDT Gender Identity Not on file Sexual Orientation Not on file documented as of this encounter Miscellaneous Notes * Telephone Encounter - Buffy Rahman - 10/01/2019 3:50 PM EDT ERRONEOUS ENCOUNTER. documented in this encounter Plan of Treatment Not on file documented as of this encounter Visit Diagnoses Not on filedocumented in this encounter Care Teams Head Filter Press Tender Relationship Specialty Start Date End Date Maine Leblanc PA [address] [place] [id number] PCP - General 09/25/15 03/05/21 documented as of this encounter
--- OUTSIDE RECORDS SUMMARY | 2024-06-26 16:07 | XMS_ITS | Encounter Summary ---
[facility] [address] [place] [address] Care Team Providers Care Flexible Machining System Machinist Name Role Phone Maine Leblanc Primary Care Provide r Encounter Details Date Type Department Care Team (Late st Contact Info) Description 12/13/2018 9:15 AM EDT Lab [facility] INTERNAL MEDIC[facility] [place] [phone] Hyperthyroidism Social History Tobacco Use Types Packs/Day [...] Procedure Name Priority Date/Time Associated Diagnosis Comments THYROID PEROXIDASE ANTIBODY Routine 12/13/2018 9:32 AM EDT Hyperthyroidism THYROID STIMULATING IMMUNOGLOBULIN Routine 12/13/2018 9:32 AM EDT Hyperthyroidism documented in this encounter Results * Thyroid Peroxidase Antibody (12/13/2018 9:32 AM EDT) Thyroid Peroxidase Antibody 10 0 - 34 IU/mL 12/14/2018 7:13 AM EDT [facility] Blood Venipuncture / Unknown 12/13/2018 9:32 AM EDT 12/13/2018 9:32 AM EDT Narrative [facility] - 12/14/2018 7:13 AM EDT Performed at: ??01 - [facility] [address] ??[id number] Buncher Machine: Reg Singh PhD, Phone: ??[phone] Riccardo Driscoll PA-C LAB BLOOD ORDERABLES Final Result Performing Organization Address [facility] Co de Phone Number [facility] [address] [place] [address], * Thyroid Stimulating Immunoglobulin (12/13/2018 9:32 AM EDT) Thyroid Stimulating Immunoglobulin 0.16 0.00 - 0.55 IU/L 12/16/2018 1:06 PM EDT [facility] Blood Venipuncture / Unknown 12/13/2018 9:32 AM EDT 12/13/2018 9:32 AM EDT Narrative [facility] - 12/16/2018 1:06 PM EDT Performed at: ??01 - [facility] ??[id number] Buncher Machine: Annamarie Irvin MD, Phone: ??[phone] Riccardo Driscoll PA-C LAB BLOOD ORDERABLES Final Result Performing Organization Address [facility] Co de Phone Number [facility] [address] [place] [address], documented in this encounter Visit Diagnoses Diagnosis Hyperthyroidism Thyrotoxicosis without mention of goiter or other cause, without mention of thyrotoxic crisis or storm documented in this encounter Care Teams Flexible Machining System Machinist Relationship Specialty Start Date End Date Maine Leblanc PA [address] [place] [address] PCP - General 09/25/15 03/05/21 documented as of this encounter
--- OUTSIDE RECORDS SUMMARY | 2024-06-26 16:07 | XMS_ITS | Encounter Summary ---
[facility] Address [address] [place] [address] Care Team Providers Care Clinical Rn Name Role Phone Maine Leblanc Primary Care Provide r Reason for Visit * Reason Comments Flu Symptoms Encounter Details Date Type Department Care Team (Late st Contact Info) Description 10/22/2018 12:15 PM EDT Office Visit [facility] [address] [place] [address] Flu-like symptoms (Primary Dx); Exposure to influenza Social History Tobacco Use Types Packs/Day Years [...] Sign Reading Time Taken Comments Blood Pressure 118/74 10/22/2018 12:21 PM EDT Pulse 118 10/22/2018 12:21 PM EDT Temperature 37.6 ??C (99.6 ??F) 10/22/2018 12:21 PM E DT Respiratory Rate 16 10/22/2018 12:21 PM EDT Oxygen Saturation 98% 10/22/2018 12:21 PM EDT Inhaled Oxygen Concentration - - Weight 124 kg (274 lb) 10/22/2018 12:21 PM EDT Height 172.7 cm (5' 8 ) 10/22/2018 12:21 PM EDT Body Mass Index 41.66 10/22/2018 12:21 PM EDT documented in this encounter Progress Notes * Starla Mooney, WILDLIFE CONSERVATION PROFESSOR - 10/22/2018 12:15 PM EDT Subjective Pat Murphy is a 28 y.o. female. BP 118/74 Pulse 118 Temp 99.6 ??F (37.6 ??C) Resp 16 Ht 172.7 cm (68 ) Wt 124 kg (274 lb) LMP 06/30/2018 SpO2 98% BMI 41.66 kg/m?? Past Medical History: Diagnosis Date ??? Constipation ??? Cystitis, interstitial ??? Fatigue ??? History of gestational diabetes mellitus ??? History of ovarian cyst ??? Joint pain diffuse joint pain ??? Polycystic ovary syndrome Allergies Allergen Reactions ??? Ciprofloxacin Hives ??? Sulfa Antibiotics Hives Flu Symptoms This is a new problem. The current episode started yesterday. The problem has been gradually worsening. Associated symptoms include congestion, coughing, fatigue, a fever, headaches, myalgias and a sore throat. Pertinent negatives include no abdominal pain, anorexia, arthralgias, change in bowel habit, chest pain, chills, joint swelling, nausea, neck pain, numbness, rash, swollen glands, urinary symptoms, vertigo, visual change, vomiting or weakness. The following portions of the patient's history were reviewed and updated as appropriate: allergies, current medications, past family history, past medical history, past social history, past surgicalhistory and problem list. Review of Systems Constitutional: Positive for fatigue and fever. Negative for chills. HENT: Positive for congestion and sore throat. Respiratory: Positive for cough. Cardiovascular: Negative for chest pain. Gastrointestinal: Negative for abdominal pain, anorexia, change in bowel habit, nausea and vomiting. Musculoskeletal: Positive for myalgias. Negative for arthralgias, joint swelling and neck pain. Skin: Negative for rash. Neurological: Positive for headaches. Negative for vertigo, weakness and numbness. + 14 weeks Objective Physical Exam Constitutional: She appears well-developed and well-nourished. Non-toxic appearance. She appears ill. HENT: Head: Normocephalic and atraumatic. Right Ear: Tympanic membrane and ear canal normal. Left Ear: Tympanic membrane and ear canal normal. Nose: Mucosal edema and rhinorrhea present. Right sinus exhibits no maxillary sinus tenderness and no frontal sinus tenderness. Left sinus exhibits no maxillary sinus tenderness and no frontal sinus tenderness. Mouth/Throat: Uvula is midline. Posterior oropharyngeal erythema present. Posterior oropharyngeal edema: mild. Cardiovascular: Regular rhythm and normal heart sounds. Pulmonary/Chest: Effort normal. She has no wheezes. She has no rhonchi. She has no rales. Lymphadenopathy: She has no cervical adenopathy. Skin: Skin is warm and dry. Assessment/Plan Pat was seen today for flu symptoms. Diagnoses and all orders for this visit: Flu-like symptoms - POC Influenza A / B Exposure to influenza Other orders - oseltamivir (TAMIFLU) 75 MG capsule; Take 1 capsule by mouth 2 (Two) Times a Day for 5 days. Results for orders placed or performed in visit on 10/22/18 POC Influenza A / B Result Value Ref Range Rapid Influenza A Ag Negative Negative Rapid Influenza B Ag Negative Negative Internal Control Passed Passed Lot Number [id number] Expiration Date documented in this encounter Plan of Treatment Not on file documented as of this encounter Procedures Procedure Name Priority Date/Time Associated Diagnosis Comments POCT INFLUENZA A/B Routine 10/22/2018 12 :32 PM EDT Flu-like symptoms documented in this encounter Results * POC Influenza A / B (10/22/2018 12:32 PM EDT) Rapid Influenza A Ag Negative Negative [facility] Rapid Influenza B Ag Negative Negative [facility] Internal Control Passed Passed [facility] Lot Number [id number] [facility] Expiration Date [facility] Swab 10/22/2018 12:3 2 PM EDT Starla Mooney APRN POINT OF CARE TEST OR DERABLES Final Result [facility]
[address] [place], [place] [address] [phone] documented in this encounter Visit Diagnoses Diagnosis Flu-like symptoms- Primary Exposure to influenza Contact with or exposure to other viral diseases documented in this encounter Care Teams Clinical Rn Relationship Specialty Start Date End Date Maine Leblanc PA [address] [place], [place] [id number] PCP - General 09/25/15 03/05/21 documented as of this encounter
--- OUTSIDE RECORDS SUMMARY | 2024-06-26 16:07 | XMS_ITS | Encounter Summary ---
[facility] [address] [place] [address] Care Team Providers Care Fitter Tacker Name Role Phone Maine Leblanc Primary Care Provide r Encounter Details Date Type Department Care Team (Late st Contact Info) Description 01/29/2020 Telephone [facility] ENDOCRINOLOGY [address] [place] [phone] Martha Grajeda MD [address] [place] [address] Social History Tobacco Use Types Packs/Day Years [...] Encounter - Janessa Davenport MA - 01/30/2020 10:50 AM EDT Returned patient call, answered question, patient expressed understanding * Telephone Encounter - Lin Chawla - 01/29/2020 11:33 AM EDT PATIENT IS CALLING WANTING TO KNOW WHERE ON THE BODY DOES DEXCOM HAVE TO BE PLACED AND WORN. SHE ISASKING IN CASE ONE AREA IS NOT WORKING OUT IS THERE ANOTHER AREA OF THE BODY IT CAN BE WORN. PHONE NUMBER IS [phone] documented in this encounter Plan of Treatment Not on file documented as of this encounter Visit Diagnoses Not on filedocumented in this encounter Care Teams Fitter Tacker Relationship Specialty Start Date End Date Maine Leblanc PA [address] [place] [address] PCP - General 09/25/15 03/05/21 documented as of this encounter
--- OUTSIDE RECORDS SUMMARY | 2024-06-26 16:07 | XMS_ITS | Encounter Summary ---
[facility] Address [address] [place] [address] Care Team Providers Care First Calender Worker Name Role Phone Maine Leblanc Primary Care Provide r Reason for Visit * Reason Onset Date Comments GRAJEDA-LAB RESULTS/QUESTION RE: INSULIN 01/23/20 20 Encounter Details Date Type Department Care Team (Late st Contact Info) Description 01/23/2020 Telephone [facility] ENDOCRINOLOGY [address] [place] [address] Martha Grajeda MD [address] [facility] [address] [place] [address] GRAJEDA-LAB RESULTS/QUESTION RE: INSULIN Social History Tobacco Use Types Packs/Day Years [...] Telephone Encounter - Janessa Davenport MA - 01/29/2020 4:30 PM EDT Returned patient call, advised of message and increase in insulin, Patient expressed understanding She will contact PCP and have them fax copy of lab results * Telephone Encounter - Martha Grajeda MD - 01/23/2020 2:00 PM EDT We did not receive results from her PCP. Please get info of her PCP and request copy of lab results. Dexcom is a great idea and I can resend referral to her pharmacy. Some insurances have specific criteria for approval of the device. In terms of high glucose I would advice her to increase basal insulin by 2 units every 3-4 days if her morning numbers are high. Continue titrating up until morning numbers are < 150. * Telephone Encounter - Marilyn Christopher - 01/23/2020 9:31 AM EDT ABOUT ONE MONTH AGO, PATIENT HAD LABS DRAWN WITH HER PCP. HAVE WE RECEIVED THESE RESULTS? SHE STATES THAT HER GLUCOSE IS 300 THIS MORNING. SHE IS UNSURE ABOUT HOW SHE SHOULD TAKE HER INSULIN TO BRINGHER NUMBERS DOWN. SHE WOULD LIKE TO BE ADVISED ON A FAST ACTING INSULIN. CALL BACK [phone] documented in this encounter Plan of Treatment Not on file documented as of this encounter Visit Diagnoses Not on filedocumented in this encounter Care Teams First Calender Worker Relationship Specialty Start Date End Date Maine Leblanc PA [address] [place] [address] PCP - General 09/25/15 03/05/21 documented as of this encounter
--- OUTSIDE RECORDS SUMMARY | 2024-06-26 16:07 | XMS_ITS | Encounter Summary ---
[facility] Address [address] [place] [address] Care Team Providers Care Pallet Rectifier Name Role Phone Maine Leblanc Primary Care Provide r Encounter Details Date Type Department Care Team (Late st Contact Info) Description 03/07/2019 Telephone [facility] INTERNAL MEDICINE [address] [place] [address] Riccardo Driscoll PA-C [address] [place] [address] Social History Tobacco Use Types Packs/Day [...] encounter Miscellaneous Notes * Telephone Encounter - Deb Benavides MA - 03/07/2019 11:12 AM EDT Pt informed and labs ordered * Telephone Encounter - Deb Benavides MA - 03/07/2019 10:14 AM EDT I do not see in your result note that you wanted her to repeat labs, let me know if you would like her to * Telephone Encounter - Amanda Galeana - 03/07/2019 9:44 AM EDT Pt calling because she was told after her last abnormal labs that she needed to come back to have her thyroid labs retested. She wanted to know when she needed to do that? Can you please contact the patient at [phone] and also put the orders in epic documented in this encounter Plan of Treatment Not on file documented as of this encounter Visit Diagnoses Not on filedocumented in this encounter Care Teams Pallet Rectifier Relationship Specialty Start Date End Date Maine Leblanc PA [address] [place] [address] PCP - General 09/25/15 03/05/21 documented as of this encounter
--- OUTSIDE RECORDS SUMMARY | 2024-06-26 16:07 | XMS_ITS | Encounter Summary ---
Author Organization [facility] Address [address] [place] [address] Care Team Providers Care Longwall Shearer Operator Name Role Phone Maine Leblanc Primary Care Provide r Reason for Visit * Reason Comments URI Encounter Details Date Type Department Care Team (Late st Contact Info) Description 07/05/2019 8:15 AM EST Office Visit [facility] [address] [place] [address] Acute URI (Primary Dx) Social History Tobacco Use Types [...] Sign Reading Time Taken Comments Blood Pressure 116/84 07/05/2019 8:07 AM EST Pulse 99 07/05/2019 8:07 AM EST Temperature 36.8 ??C (98.3 ??F) 07/05/2019 8:07 AM ES T Respiratory Rate 20 07/05/2019 8:07 AM EST Oxygen Saturation 98% 07/05/2019 8:07 AM EST Inhaled Oxygen Concentration - - Weight 132 kg (292 lb) 07/05/2019 8:07 AM EST Height 172.7 cm (5' 8 ) 07/05/2019 8:07 AM EST Body Mass Index 44.4 07/05/2019 8:07 AM EST documented in this encounter Progress Notes * Rigo Simon V, ELEVATOR CONSTRUCTOR HELPER - 07/05/2019 8:15 AM EST Subjective Pat Murphy is a 29 y.o. female. URI This is a new problem. The current episode started yesterday. The problem has been gradually worsening. There has been no fever. Associated symptoms include congestion, coughing, headaches, nausea (mild) and rhinorrhea. Pertinent negatives include no abdominal pain, chest pain, diarrhea, ear pain, joint pain, joint swelling, neck pain, plugged ear sensation, rash, sinus pain, sneezing, sore throat, swollen glands, vomiting or wheezing. Treatments tried: otc cough and cold medication. The treatment provided no relief. The following portions of the patient's history were reviewed and updated as appropriate: allergies, current medications, past medical history, past social history, past surgical history and problem list. Review of Systems Constitutional: Positive for appetite change, chills and fatigue. Negative for fever. HENT: Positive for congestion, postnasal drip and rhinorrhea. Negative for ear pain, sinus pressure, sinus pain, sneezing, sore throat and trouble swallowing. Eyes: Negative. Respiratory: Positive for cough. Negative for chest tightness, shortness of breath and wheezing. Cardiovascular: Negative. Negative for chest pain. Gastrointestinal: Positive for nausea (mild). Negative for abdominal pain, diarrhea and vomiting. Musculoskeletal: Positive for myalgias. Negative for arthralgias, joint pain and neck pain. Skin: Negative. Negative for rash. Neurological: Positive for headaches. Hematological: Does not bruise/bleed easily. BP 116/84 Pulse 99 Temp 98.3 ??F (36.8 ??C) Resp 20 Ht 172.7 cm (68 ) Wt 132 kg (292 lb) LMP 06/06/2019 SpO2 98% No BMI 44.40 kg/m?? Objective Physical Exam Constitutional: She is oriented to person, place, and time. She appears well- developed and well-nourished. No distress. HENT: Head: Normocephalic. Right Ear: Tympanic membrane, external ear and ear canal normal. No drainage, swelling or tenderness. Tympanic membrane is not erythematous and not bulging. Left Ear: Tympanic membrane, external ear and ear canal normal. No drainage, swelling or tenderness. Tympanic membrane is not erythematous and not bulging. Nose: Mucosal edema and rhinorrhea present. Right sinus exhibits no maxillary sinus tenderness and no frontal sinus tenderness. Left sinus exhibits no maxillary sinus tenderness and no frontal sinus tenderness. Mouth/Throat: Uvula is midline, oropharynx is clear and moist and mucous membranes are normal. Tonsils are 0 on the right. Tonsils are 0 on the left. No tonsillar exudate. Neck: Normal range of motion. Neck supple. Cardiovascular: Regular rhythm, S1 normal, S2 normal and normal heart sounds. Tachycardia present. Pulmonary/Chest: Effort normal and breath sounds normal. No stridor. No respiratory distress. She has no decreased breath sounds. She has no wheezes. She has no rhonchi. She has no rales. Abdominal: Soft. Normal appearance and bowel sounds are normal. She exhibits no distension. There is no hepatosplenomegaly. There is no tenderness. There is no rebound and no guarding. Lymphadenopathy: Head (right side): No tonsillar adenopathy present. Head (left side): No tonsillar adenopathy present. She has no cervical adenopathy. Neurological: She is alert and oriented to person, place, and time. Skin: Skin is warm and dry. No rash noted. She is not diaphoretic. Psychiatric: She has a normal mood and affect. Her speech is normal and behavior is normal. Thoughtcontent normal. Vitals reviewed. Results for orders placed or performed in visit on 07/05/19 POC Influenza A / B Result Value Ref Range Rapid Influenza A Ag Negative Negative Rapid Influenza B Ag Negative Negative Internal Control Passed Passed Lot Number [id number] Expiration Date Assessment/Plan Pat was seen today for uri. Diagnoses and all orders for this visit: Acute URI - POC Influenza A / B - ibuprofen (ADVIL,MOTRIN) 800 MG tablet; Take 1 tablet by mouth Every 8 (Eight) Hours As Needed for Mild Pain . - promethazine-dextromethorphan (PROMETHAZINE-DM) 6.25-15 MG/5ML syrup; Take 5 mL by mouth 4 (Four)Times a Day As Needed for Cough for up to 10 days. - pseudoephedrine (SUDAFED) 120 MG 12 hr tablet; Take 1 tablet by mouth Every 12 (Twelve) Hours for10 days. documented in this encounter Plan of Treatment Not on file documented as of this encounter Procedures Procedure Name Priority Date/Time Associated Diagnosis Comments POCT INFLUENZA A/B Routine 07/05/2019 8: 19 AM EST Acute URI documented in this encounter Results * POC Influenza A / B (07/05/2019 8:19 AM EST) Rapid Influenza A Ag Negative Negative [facility] Rapid Influenza B Ag Negative Negative [facility] Internal Control Passed Passed [facility] Lot Number [id number] [facility] Expiration Date 06/2021 [facility] Swab 07/05/2019 8:19 AM EST Rigo Naik APRN POINT OF CARE TEST ORDERABL ES Final Result [facility]
[address] [place] [address], documented in this encounter Visit Diagnoses Diagnosis Acute URI- Primary Acute upper respiratory infections of unspecified site documented in this encounter Care Teams Longwall Shearer Operator Relationship Specialty Start Date End Date Maine Leblanc PA [address] [place] [address] PCP - General 09/25/15 03/05/21 documented as of this encounter
--- OUTSIDE RECORDS SUMMARY | 2024-06-26 16:07 | XMS_ITS | Encounter Summary ---
[facility] Address [address] [place] [address] Care Team Providers Care Benzene Operator Name Role Phone Maine Leblanc Primary Care Provide r Reason for Visit * Reason Onset Date Comments GRAJEDA-MED REFILL 10/26/2019 Encounter Details Date Type Department Care Team (Late st Contact Info) Description 10/26/2019 Telephone [facility] ENDOCRINOLOG[facility] [address] [place] [address] Martha Grajeda MD [address] [place] [address] GRAJEDA-MED REFILL Social History Tobacco Use Types Packs/Day Years [...] Telephone Encounter - Deb Benavides MA - 10/26/2019 1:28 PM EDT Refills sent * Telephone Encounter - Marilyn Christopher - 10/26/2019 11:41 AM EDT PATIENT CALLED TO REQUEST REFILL ON GLYBURIDE AND METFORMIN. BARRIE KEARNEY documented in this encounter Plan of Treatment Not on file documented as of this encounter Visit Diagnoses Not on filedocumented in this encounter Care Teams Benzene Operator Relationship Specialty Start Date End Date Maine Leblanc PA [address] [place] [address] PCP - General 09/25/15 03/05/21 documented as of this encounter
--- OUTSIDE RECORDS SUMMARY | 2024-06-26 16:07 | XMS_ITS | Encounter Summary ---
[facility] Address [address] [place] [address] Care Team Providers Care Assembler Camper Name Role Phone Maine Leblanc Primary Care Provide r Encounter Details Date Type Department Care Team (Late st Contact Info) Description 07/04/2019 1:30 PM EST Lab [facility] INTER[facility] MEDICINE [address] [place] [address] Hyperthyroidism Social History Tobacco Use [...] Priority Date/Time Associated Diagnosis Comments TSH Routine 07/04/2019 2:21 PM EST Hyperthyroidism documented in this encounter Results * TSH (07/04/2019 2:21 PM EST) TSH 0.985 0.270 - 4.200 uIU/mL 07/05/2019 3:06 AM EST [facility] Blood Venipuncture / Unknown 07/04/2019 2:21 PM EST 07/04/2019 2:21 PM EST us Martha Naik MD LAB BLOOD ORDERABLES Final Res ult [facility]
[address] [place] [address], documented in this encounter Visit Diagnoses Diagnosis Hyperthyroidism Thyrotoxicosis without mention of goiter or other cause, without mention of thyrotoxic crisis or storm documented in this encounter Care Teams Assembler Camper Relationship Specialty Start Date End Date Maine Leblanc PA [address] [place] [address] PCP - General 09/25/15 03/05/21 documented as of this encounter
--- OUTSIDE RECORDS SUMMARY | 2024-06-26 16:07 | XMS_ITS | Encounter Summary ---
Author Organization [facility] Address [address] [place] [address] Care Team Providers Care Software Quality Tester Name Role Phone Maine Leblanc Primary Care Provide r Encounter Details Date Type Department Care Team (Late st Contact Info) Description 04/05/2019 Telephone [facility] [address] [place] [phone] Martha Grajeda MD [address] [place] [address] Social History Tobacco Use Types Packs/Day Years [...] encounter Miscellaneous Notes * Telephone Encounter - Tona Cohn - 04/06/2019 2:11 PM EDT Pt added to the cancellation list. * Telephone Encounter - Janessa Davenport MA - 04/06/2019 2:04 PM EDT Tona, Please place on cancellation list. She recently had a baby and needs to come in for updated lasts and new dosages of Diabetic RX. * Telephone Encounter - Janessa Davenport MA - 04/06/2019 2:04 PM EDT Patient notified of message Expressed understanding. Rx E- Scrtiped. Will send message to Tona to add to cancellation list. * Telephone Encounter - Janessa Davenport MA - 04/06/2019 1:27 PM EDT Attempted contact LMOM asking patient to return my call * Telephone Encounter - Martha Grajeda MD - 04/06/2019 1:06 PM EDT She would need to back off significantly or stop the insulin. Check glucose levels frequently . Forexample she can take 30 units of lantus and monitor glucose, use quick acting for high glucose only. Or if her glucose is low, then dont take lantus, restart metfromin and glyburide, monitor glucose.Does she have follow-up appointment soon?> * Telephone Encounter - Janessa Davenport MA - 04/05/2019 3:24 PM EDT Returned patient call, she gave this AM She just did not know if she should continue the insulin or just go back on Metformin and glyburide. She next appt is 05/15 * Telephone Encounter - Kamini Vegas - 04/05/2019 2:24 PM EDT PATIENT WOULD LIKE TO GET A CALL BACK IN REGARDS TO HER WANTING TO KNOW IF SHE WILL NEED TO START BACK UP TAKING THE METFORMIN AND GLYBURIDE MEDICATION? SHE STATES THAT SHE WAS ADVISED TO STOP TAKINGTHOSE MEDICATIONS WHILE SHE WAS . THE PATIENT WOULD LIKE TO GET A CALL BACK IN REGARDS TO THIS MATTER AT [phone] documented in this encounter Plan of Treatment Not on file documented as of this encounter Visit Diagnoses Not on filedocumented in this encounter Care Teams Software Quality Tester Relationship Specialty Start Date End Date Maine Leblanc PA [address] [place] [address] PCP - General 09/25/15 03/05/21 documented as of this encounter
--- OUTSIDE RECORDS SUMMARY | 2024-06-26 16:07 | XMS_ITS | Encounter Summary ---
[facility] Address [address] [place] [address] Care Team Providers Care Maintenance Mechanic Millwright Name Role Phone Maine Leblanc Primary Care Provide r Encounter Details Date Type Department Care Team (Late st Contact Info) Description 06/28/2019 Telephone [facility] INTERNAL MEDICINE [address] [place] [phone] Martha Leary MD [address] [place] [address] Social History Tobacco Use Types Packs/Day Years [...] Telephone Encounter - Janessa Davenport MA - 06/29/2019 1:05 PM EST Returned patient call, LMOM advising of the message * Telephone Encounter - Martha Leary MD - 06/28/2019 3:53 PM EST Great. If hypoglycemia continues, d/c glyburide * Telephone Encounter - Janessa Davenport MA - 06/28/2019 3:25 PM EST Please see patient message about dosage change * Telephone Encounter - Pat Bergman RegSched Rep - 06/28/2019 11:14 AM EST PT CALLED TO LET DR. LEARY KNOW THAT SHE HAS WENT BACK DOWN TO 2.5 ON HER GLYBURIDE DUE SUGAR WAS DROPPING TO AROUND 30. [phone] documented in this encounter Plan of Treatment Not on file documented as of this encounter Visit Diagnoses Not on filedocumented in this encounter Care Teams Maintenance Mechanic Millwright Relationship Specialty Start Date End Date Maine Leblanc PA [address] [place] [address] PCP - General 09/25/15 03/05/21 documented as of this encounter
--- OUTSIDE RECORDS SUMMARY | 2024-06-26 16:07 | XMS_ITS | Encounter Summary ---
[facility] Address [address] [place] [address] Care Team Providers Care Parking Manager Name Role Phone Maine Leblanc Primary Care Provide r Encounter Details Date Type Department Care Team (Late st Contact Info) Description 12/10/2019 Telephone [facility] ENDOCRINOLOGY [address] [place] [phone] Martha Grajeda MD [address] [place] [address] Social History Tobacco Use Types Packs/Day Years [...] Telephone Encounter - Janessa Davenport MA - 12/11/2019 10:47 AM EDT Spoke with patient answered question. Advised about increasing insulin 2 units every 3-4 days, she forgot how much to increase Will call back if blood sugars do nt come down * Telephone Encounter - Janessa Davenport MA - 12/11/2019 10:44 AM EDT Returned patient call, asked that she return call, give a little more details about blood sugar reading etc * Telephone Encounter - Tona Cohn - 12/11/2019 10:06 AM EDT Pt returned call. Please give pt a call back. * Telephone Encounter - Janessa Davenport MA - 12/11/2019 8:40 AM EDT Attempted contact. LMOM asking patient to return my call * Telephone Encounter - Lin Chawla - 12/10/2019 12:04 PM EDT PATIENT IS CALLING STATING SHE IS HAVING ISSUES OF BEING HUNGRY IN THE EVENINGS. SHE IS HAVING ISSUES WITH BLOOD SUGARS AND BEING HUNGRY IN EVENINGS. SHE WOULD LIKE SOME RECOMMENDATIONS OF WHAT SHE CAN DO TO HELP ISSUES. PHONE NUMBER IS [phone] documented in this encounter Plan of Treatment Not on file documented as of this encounter Visit Diagnoses Not on filedocumented in this encounter Care Teams Parking Manager Relationship Specialty Start Date End Date Maine Leblanc PA [address] [place] [address] PCP - General 09/25/15 03/05/21 documented as of this encounter
--- OUTSIDE RECORDS SUMMARY | 2024-06-26 16:07 | XMS_ITS | Encounter Summary ---
[facility] [address] [place] [address] Care Team Providers Care Rim Technician Name Role Phone Maine Leblanc Primary Care Provide r Reason for Visit * Reason Comments Follow-up DM 2 Encounter Details Date Type Department Care Team (Late st Contact Info) Description 02/20/2019 10:15 AM EDT Office Visit [facility] [address] [facility] [address] [place] [phone] Riccardo Driscoll PA-C [address] [facility] [address] [place], [place] [id number] Type 2 diabetes mellitus with hyperglycemia, without long-term current use of insulin (Primary Dx); Acquired hypothyroidism; 32 weeks gestation of Social History Tobacco Use Types Packs/Day Years [...] Sign Reading Time Taken Comments Blood Pressure 122/64 02/20/2019 10:08 AM EDT Pulse 87 02/20/2019 10:08 AM EDT Temperature - - Respiratory Rate - - Oxygen Saturation 98% 02/20/2019 10:08 AM EDT Inhaled Oxygen Concentration - - Weight 131 kg (289 lb) 02/20/2019 10:08 AM EDT Height - - Body Mass Index 43.94 12/17/2018 12:25 PM EDT documented in this encounter Progress Notes * Riccardo Driscoll PA-C - 02/20/2019 10:15 AM EDT Chief complaint Follow-up (DM 2) Subjective Pat Murphy is a 28 y.o. female is here today for follow-up. Diabetes mellitus type 2 diagnosed 09/15/15. Reports having gestational DM with first ; took Glyburide during that time. Meds: prior to metformin ER 500 mg - 2 tablets bid with food. Her high frequency mill operator DR Amato added insulin and she has weekly glucose log book sent to her. She is currently takes Lantus 70 units and Humalog 24 units with meals. Monitoring - 3-4x daily. [...] of . Thyroid levels were tested with service order dispatcher Cha Osorio and levels were normal off the medication. 32 weeks . Followed by OB and high frequency mill operator. BS log reviewed- FBS 92 to 147, 2h pp readings varying from 94-158. She's on humalog 24u AC TID, sliding scale provided by high frequency mill operator Lantus 70U qhs TSI normal in November 2018 with TSH 2.77 and low FT4, was started on levothyroxine 25 at that time and increased to 50mcg 01/23/19 due to essentially unchanged TFTs Medications Current Outpatient Medications: ??? HUMALOG KWIKPEN 100 UNIT/ML solution pen-injector, Take up to 30u tid ac, Disp: 9 pen, Rfl: 6 ??? LANTUS SOLOSTAR 100 UNIT/ML injection pen, Inject 75 Units under the skin into the appropriate area as directed Every Night., Disp: 8 pen, Rfl: 6 ??? levothyroxine (SYNTHROID, LEVOTHROID) 50 MCG tablet, Take 1 tablet by mouth Daily., Disp: 30 tablet, Rfl: 6 ??? MV-Min-Fe Fum-FA-DHA ( 1 PO), Take by mouth Daily., Disp: , Rfl: ??? B-D UF III MINI PEN NEEDLES 31G X 5 MM misc, , Disp: , Rfl: PMH The following portions of the patient's history were reviewed and updated as appropriate: allergies, current medications, past family history, past medical history, past social history, past surgicalhistory and problem list. Review of systems Review of Systems Constitutional: Positive for fatigue. All other systems reviewed and are negative. Physical exam Objective Blood pressure 122/64, pulse 87, weight 131 kg (289 lb), last menstrual period 07/10/2018, SpO2 98 %, [...] place, and time. She has normal reflexes. No hand tremor Psychiatric: She has a normal mood and affect. Her behavior is normal. Judgment and thought contentnormal. Nursing note and vitals reviewed. LABS AND IMAGING Office Visit on 02/20/2019 Component Date Value Ref Range Status ??? Hemoglobin A1C 02/20/2019 5.1 % Final ??? Glucose 02/20/2019 136* 70 - 130 mg/dL Final Lab on 01/23/2019 Component Date Value Ref Range Status ??? TSH 01/23/2019 2.310 0.270 - 4.200 mIU/mL Final ??? Free T4 01/23/2019 0.86* 0.93 - 1.70 ng/dL Final ??? T3, Free 01/23/2019 2.99 2.00 - 4.40 pg/mL Final NM THYROID UPTAKE AND SCAN 04/28/2017 IMPRESSION: 1. Four hour and 24-hour thyroid uptake appear within normal limits. 36% at 24 hours. 2. Slightly heterogeneous uptake pattern in the inferior right thyroid lobe, otherwise normal appearing thyroid scan. Assessment Assessment/Plan Problem List Items Addressed This Visit Endocrine Diabetes mellitus (CMS/HCC) - Primary Relevant Medications LANTUS SOLOSTAR 100 UNIT/ML injection pen HUMALOG KWIKPEN 100 UNIT/ML solution pen-injector Other Relevant Orders POC Glycosylated Hemoglobin (Hb A1C) (Completed) POC Glucose Fingerstick (Completed) Other Other Visit Diagnoses Acquired hypothyroidism Relevant Orders TSH T4, Free Plan A1C is 5.1 today, glucometer reviewed. Glucose goals reviewed again, goal FBS <95, 2h pp <120. Increase Lantus to 75u qhs to improve FBS. Continue humalog 24u tid ac plus sliding scale provided by OB. She is sending weekly bs readings to high frequency mill operator. Repeat TFTs today. Continue levothyroxine 50mcg daily unless labs dictate otherwise F/u with Dr. Grajeda 04/2019. She is also managed by Dr Amato and Cha Osorio closely. Will forward today's note to them. * Martha Grajeda MD - 02/20/2019 10:15 AM EDT I have reviewed the notes, assessments, and/or procedures performed by Riccardo Driscoll PA-C, I concur with her/his documentation of Pat العلي Jeffrey documented in this encounter Plan of Treatment Not on file documented as of this encounter Procedures Procedure Name Priority Date/Time Associated Diagnosis Comments TSH Routine 02/20/2019 10:44 AM EDT Acquired hypothyroidism T4, FREE Routine 02/20/2019 10:44 AM EDT Acquired hypothyroidism POCT GLYCOSYLATED HEMOGLOBIN (HGB A1C) Routine 02/20/2019 10:17 AM EDT Type 2 diabetes mellitus with hyperglycemia, without long-term current use of insulin POCT GLUCOSE FINGERSTICK Routine 02/20/2019 10:17 AM EDT Type 2 diabetes mellitus with hyperglycemia, without long-term current use of insulin documented in this encounter Results * (ABNORMAL) T4, Free (02/20/2019 10:44 AM EDT) Free T4 0.84(L) 0.93 - 1.70 ng/dL 02/20/2019 11:02 PM EDT [facility] Blood Venipuncture / Unknown 02/20/2019 10:44 AM EDT 02/20/2019 10:44 AM EDT us Riccardo DUNNE-Bobby LAB BLOOD ORDERABLES Final Result [facility]
[address] [place] [address], * TSH (02/20/2019 10:44 AM EDT) [facility] TSH 2.110 0.270 - 4.200 mIU/mL 02/20/2019 11:02 PM EDT [facility] Blood Venipuncture / Unknown 02/20/2019 10:44 AM EDT 02/20/2019 10:44 AM EDT us Riccardo DUNNE-Bobby LAB BLOOD ORDERABLES Final Result [facility]
[address] [place] [address], * (ABNORMAL) POC Glucose Fingerstick (02/20/2019 10:17 AM EDT) Glucose 136(A) 70 - 130 mg/dL [facility] Blood 02/20/2019 10:1 7 AM EDT Riccardo Driscoll PA-C POINT OF CARE TEST ORDERAB LES Final Result [facility]
[address] [place] [address], * POC Glycosylated Hemoglobin (Hb A1C) (02/20/2019 10:17 AM EDT) Hemoglobin A1C 5.1 % [facility] Blood 02/20/2019 10:1 7 AM EDT Riccardo Driscoll PA-C POINT OF CARE TEST ORDERAB LES Final Result Performing Organization Address City/[facility] Co de Phone Number [facility]
[address] [place] [address], documented in this encounter Visit Diagnoses Diagnosis Type 2 diabetes mellitus with hyperglycemia, without long-term current use of insulin- Primary Acquired hypothyroidism Unspecified hypothyroidism 32 weeks gestation of documented in this encounter Care Teams Rim Technician Relationship Specialty Start Date End Date Maine Leblanc PA [address] [place] [address] PCP - General 09/25/15 03/05/21 documented as of this encounter
--- OUTSIDE RECORDS SUMMARY | 2024-06-26 16:07 | XMS_ITS | Encounter Summary ---
[facility] [address] [place] [address] Care Team Providers Care Manager Physical Name Role Phone Maine Leblanc Primary Care Provide r Reason for Visit * Reason Onset Date Comments Med Refill 07/06/2018 Encounter Details Date Type Department Care Team (Late st Contact Info) Description 07/06/2018 Refill [facility] INTERNAL MEDICINE [address] [place] [address] [phone] Martha Leary MD [address] [address] Social History Tobacco Use Types Packs/Day Years [...] encounter Miscellaneous Notes * Telephone Encounter - Annie Proctor MA - 08/08/2018 3:01 PM EST Received PA request via fax from pharmacy for wellbutrin, submitted Pa via [employer], awaiting response. * Telephone Encounter - Annie Proctor MA - 07/13/2018 8:23 AM EST KRISTY: 03/22/18 FOV: 08/15/18 Pls advise. * Telephone Encounter - Lin Chawla - 07/06/2018 11:34 AM EST PATIENT IS CALLING STATING DR. LEARY PRESCRIBED PATIENT WELLBUTRIN 150 MG TO HELP HER QUIT SMOKING. PATIENT STATES ITS NOT WORKING AND IS WONDERING IF WE NEED TO UP THE DOSE OF THIS MEDICATION TO SEE IF THAT HELPS. YOU CAN REACH PATIENT BACK AT [phone] PHARMACY IS [facility]. documented in this encounter Plan of Treatment Not on file documented as of this encounter Visit Diagnoses Not on filedocumented in this encounter Care Teams Manager Physical Relationship Specialty Start Date End Date Maine Leblanc PA [address] [place] [address] PCP - General 09/25/15 03/05/21 documented as of this encounter
--- OUTSIDE RECORDS SUMMARY | 2024-06-26 16:07 | XMS_ITS | Encounter Summary ---
[facility] [address] [place] [address] Care Team Providers Care Production Metal Sprayer Name Role Phone Maine Leblanc Primary Care Provide r Reason for Visit * Reason Onset Date Comments Med Refill 09/27/2018 Encounter Details Date Type Department Care Team (Late st Contact Info) Description 09/27/2018 Refill [facility] INTERNAL MEDICINE [address] [place] [address] [phone] Martha Grajeda MD [address] [place] [address] Type 2 diabetes mellitus without complication Social History Tobacco Use Types Packs/Day Years [...] Telephone Encounter - Janessa Davenport MA - 09/27/2018 3:51 PM EST Recently refill with 11 refills. Duplicate request documented in this encounter Plan of Treatment Not on file documented as of this encounter Visit Diagnoses Diagnosis Type 2 diabetes mellitus without complication documented in this encounter Care Teams Production Metal Sprayer Relationship Specialty Start Date End Date Leblanc, Maine Vania, PA [address] [place] [address] PCP - General 09/25/15 03/05/21 documented as of this encounter
--- OUTSIDE RECORDS SUMMARY | 2024-06-26 16:07 | XMS_ITS | Encounter Summary ---
[facility] [address] [place] [address] Care Team Providers Care Landscape Specialist Name Role Phone Maine Leblanc Primary Care Provide r Encounter Details Date Type Department Care Team (Late st Contact Info) Description 07/11/2019 10:00 AM EST Office Visit [facility] [address] [place] [address] [employer] eye disease of left eye (Primary Dx) Social History Tobacco Use Types [...] Sign Reading Time Taken Comments Blood Pressure 124/84 07/24/2019 1:15 PM EST Pulse 75 07/24/2019 1:15 PM EST Temperature 37.2 ??C (98.9 ??F) 07/24/2019 1:15 PM ES T Respiratory Rate 18 07/24/2019 1:15 PM EST Oxygen Saturation 96% 07/24/2019 1:15 PM EST Inhaled Oxygen Concentration - - Weight - - Height - - Body Mass Index - - documented in this encounter Patient Instructions * Patient Instructions* Starla Mooney APRN - 07/11/2019 10:00 AM EST Images from the original note were not included. Bacterial Conjunctivitis, Adult Bacterial conjunctivitis is an infection of your conjunctiva. This is the clear membrane that covers the white part of your eye and the inner part of your eyelid. This infection can make your eye: ?? Red or pink. ?? Itchy. This condition spreads easily from person to person (is contagious) and from one eye to the other eye. What are the causes? ?? This condition is caused by germs (bacteria). You may get the infection if you come into close contact with: ? A person who has the infection. ? Items that have germs on them (are contaminated), such as face towels, contact lens solution, or eye makeup. What increases the risk? You are more likely to get this condition if you: ?? Have contact with people who have the infection. ?? Wear contact lenses. ?? Have a sinus infection. ?? Have had a recent eye injury or surgery. ?? Have a weak body defense system (immune system). ?? Have dry eyes. What are the signs or symptoms? ?? Thick, yellowish discharge from the eye. ?? Tearing or watery eyes. ?? Itchy eyes. ?? Burning feeling in your eyes. ?? Eye redness. ?? Swollen eyelids. ?? Blurred vision. How is this treated? ?? Antibiotic eye drops or ointment. ?? Antibiotic medicine taken by mouth. This is used for infections that do not get better with drops or ointment or that last more than 10 days. ?? Cool, wet cloths placed on the eyes. ?? Artificial tears used 2-6 times a day. Follow these instructions at home: Medicines ?? Take or apply your antibiotic medicine as told by your doctor. Do not stop taking or applying the antibiotic even if you start to feel better. ?? Take or apply lpiv-myl-whqlsug and prescription medicines only as told by your doctor. ?? Do not touch your eyelid with the eye-drop bottle or the ointment tube. Managing discomfort ?? Wipe any fluid from your eye with a warm, wet washcloth or a cotton ball. ?? Place a clean, cool, wet cloth on your eye. Do this for 10-20 minutes, 3-4 times per day. General instructions ?? Do not wear contacts until the infection is gone. Wear glasses until your doctor says it is okayto wear contacts again. ?? Do not wear eye makeup until the infection is gone. Throw away old eye makeup. ?? Change or wash your pillowcase every day. ?? Do not share towels or washcloths. ?? Wash your hands often with soap and water. Use paper towels to dry your hands. ?? Do not touch or rub your eyes. ?? Do not drive or use heavy machinery if your vision is blurred. Contact a doctor if: ?? You have a fever. ?? You do not get better after 10 days. Get help right away if: ?? You have a fever and your symptoms get worse all of a sudden. ?? You have very bad pain when you move your eye. ?? Your face: ? Hurts. ? Is red. ? Is swollen. ?? You have sudden loss of vision. Summary ?? Bacterial conjunctivitis is an infection of your conjunctiva. ?? This infection spreads easily from person to person. ?? Wash your hands often with soap and water. Use paper towels to dry your hands. ?? Take or apply your antibiotic medicine as told by your doctor. ?? Contact a doctor if you have a fever or you do not get better after 10 days. This information is not intended to replace advice given to you by your health care provider. Make sure you discuss any questions you have with your health care provider. Document Released: 04/19/2009 Document Revised: 02/14/2019 Document Reviewed: 02/14/2019 [employer] Patient Education ?? 2019 [employer] documented in this encounter Progress Notes * Starla Mooney APRN - 07/11/2019 10:00 AM EST Subjective Pat Murphy is a 29 y.o. female. BP 124/84 Pulse 75 Temp 98.9 ??F (37.2 ??C) Resp 18 SpO2 96% Past Medical History: Diagnosis Date ??? Constipation ??? Cystitis, interstitial ??? Fatigue ??? History of gestational diabetes mellitus ??? History of ovarian cyst ??? Joint pain diffuse joint pain ??? Polycystic ovary syndrome ??? Type 2 diabetes mellitus (CMS/HCC) Allergies Allergen Reactions ??? Ciprofloxacin Hives ??? Sulfa Antibiotics Hives Conjunctivitis The current episode started yesterday. The onset was sudden. The problem has been gradually worsening. Associated symptoms include eye itching and eye redness. Pertinent negatives include no decreased vision, no double vision, no photophobia, no congestion, no ear discharge, no ear pain, no headaches, no hearing loss, no mouth sores, no rhinorrhea, no sore throat, no stridor, no swollen glands, no eye discharge and no eye pain. The following portions of the patient's history were reviewed and updated as appropriate: allergies, current medications, past family history, past medical history, past social history, past surgicalhistory and problem list. Review of Systems HENT: Negative for congestion, ear discharge, ear pain, hearing loss, mouth sores, rhinorrhea and sore throat. Eyes: Positive for redness and itching. Negative for double vision, photophobia, pain and discharge. Respiratory: Negative for stridor. Neurological: Negative for headaches. Objective Physical Exam Constitutional: She appears well-developed and well-nourished. Non-toxic appearance. She does not appear ill. HENT: Head: Normocephalic and atraumatic. Right [...] and moist and mucous membranes are normal. Eyes: Lids are normal. Right conjunctiva is not injected. Right conjunctiva has no hemorrhage. Leftconjunctiva is injected. Left conjunctiva has no hemorrhage. Cardiovascular: Regular rhythm and normal heart sounds. Pulmonary/Chest: Effort normal. She has no wheezes. She has no rhonchi. She has no rales. Lymphadenopathy: She has no cervical adenopathy. Skin: Skin is warm and dry. Assessment/Plan Diagnoses and all orders for this visit: [employer] eye disease of left eye Other orders - azithromycin (AZASITE) 1 % ophthalmic solution; Administer 1 drop to both eyes Daily for 7 days. documented in this encounter Plan of Treatment Not on file documented as of this encounter Visit Diagnoses Diagnosis [employer] eye disease of left eye- Primary documented in this encounter Care Teams Landscape Specialist Relationship Specialty Start Date End Date Maine Leblanc PA [address] [place] [address] PCP - General 09/25/15 03/05/21 documented as of this encounter
--- OUTSIDE RECORDS SUMMARY | 2024-06-26 16:07 | XMS_ITS | Encounter Summary ---
[facility] [address] [place] [address] Care Team Providers Care Weatherseal Technician Name Role Phone Maine Leblanc Primary Care Provide r Reason for Visit * Reason Comments Diabetes Encounter Details Date Type Department Care Team (Late st Contact Info) Description 12/07/2019 9:30 AM EDT Telemedicine [facility] ENDOCR[facility]OLOGY [address] [place] [phone] Martha Grajeda MD [address] [place], [place] [id number] Hyperthyroidism (Primary Dx); Type 2 diabetes mellitus with hyperglycemia, without [...] on file documented as of this encounter Patient Instructions * Patient Instructions* Martha Grajeda MD - 12/07/2019 9:30 AM EDT 12/07/19 Pat Murphy 1990 Continue metformin and glyburide. ADA General Goals: A1c: < 7% Fasting/before meal glucose: <150 mg/dL 2 Hour after meal glucoses: < 180 mg/dL Bedtime glucose:120-180 Lantus is long acting insulin that lasts 24 hours. It is taken at bedtime every night and should not be skipped unless instructed by your doctor Starting Basal Insulin Dose: 10 units before bedtime Change insulin doses every 3 days based on the following: If before breakfast blood sugar readings are consistently higher than 150 for 3- 4 days, raise insulin dose by 2 units. If after 2 weeks, before meal blood sugars are not lower than 150, call the office. If you are having frequent blood sugars lower than 70, call the office. Martha Grajeda MD documented in this encounter Progress Notes * Martha Grajeda MD - 12/07/2019 9:30 AM EDT Chief complaint Diabetes You have chosen to receive care through a telehealth visit. Do you consent to use a video/audio connection for your medical care today? Yes Subjective Pat Murphy is a 29 y.o. [...] 266 is fasting numbers and 294- 325. March 2017 she was diagnosed with hyperthyroidism [...] of . Thyroid levels were tested with faculty research physician Cha Osorio and levels were normal off the medication. November 2018 sh ehad TSH 2.77 and low FT4, was started on levothyroxine 25 at that time and increased to 50mcg 7/2/19 by faculty research physician. She is currently taking 50 mcg levothyroxine, C/o heart palpitations, no tremors or anxiety, has some insomnia. Medications Current Outpatient Medications: ??? cetirizine (zyrTEC) 10 MG tablet, , Disp: , Rfl: ??? fluticasone (FLONASE) 50 MCG/ACT nasal spray, , Disp: , Rfl: ??? glyburide (DIAbeta) 5 MG tablet, 1 PO Daily (will require visit for future refills), Disp: 90 tablet, Rfl: 1 ??? Insulin Glargine (LANTUS SOLOSTAR) 100 UNIT/ML injection pen, Inject 20 Units under the skin into the appropriate area as directed Every Night., Disp: 5 pen, Rfl: 6 ??? Insulin Pen Needle (PEN NEEDLES) 32G X 4 MM misc, 1 each Daily., Disp: 90 each, Rfl: 1 ??? metFORMIN ER (GLUCOPHAGE-XR) 500 MG 24 hr tablet, 2 PO BID with Food, Disp: 120 tablet, Rfl: 1 PMH The following portions of the patient's history were reviewed and updated as appropriate: allergies, current medications, past family history, past medical history, past social history, past surgicalhistory and problem list. Review of systems Review of Systems Constitutional: Positive for fatigue. Cardiovascular: Positive for palpitations (intermittently ). Psychiatric/Behavioral: Positive for sleep disturbance. All other systems reviewed and are negative. Physical exam Objective not currently . Physical Exam Constitutional: She [...] visit. Latest known visit with results is: Office Visit on 07/06/2019 Component Date Value Ref Range Status ??? Rapid Influenza A Ag 07/06/2019 Negative Negative Final ??? Rapid Influenza B Ag 07/06/2019 Negative Negative Final ??? Internal Control 07/06/2019 Passed Passed Final ??? Lot Number 07/06/2019 [id number] Final ??? Expiration Date 07/06/201901/12 Final ??? Rapid Strep A Screen 07/06/2019 Negative Negative, VALID, INVALID, Not Performed Final ??? Internal Control 07/06/2019 Passed Passed Final ??? Lot Number 07/06/2019 [id number] Final ??? Expiration Date 07/06/201909/14 Final Assessment Assessment/Plan Problem List Items Addressed This Visit Endocrine Diabetes mellitus (CMS/HCC) Relevant Medications Insulin Glargine (LANTUS SOLOSTAR) 100 UNIT/ML injection pen glyburide (DIAbeta) 5 MG tablet metFORMIN ER (GLUCOPHAGE-XR) 500 MG 24 hr tablet Other Relevant Orders Hemoglobin A1c Comprehensive Metabolic Panel Hyperthyroidism - Primary Other Visit Diagnoses Thyroiditis Relevant Orders TSH T4, Free Plan Continue metformin and glyburide, start basal insulin at 10 Units daily and increase by 2 units every 3-4 days Insulin titration instructions provided and hypoglycemia precautions reviewed. Patient will continue to monitor glucose twice a day and call the office if the numbers are still too high after insulininitiation. I will obtain fasting blood test and thyroid function test next week Follow-up in 3 months documented in this encounter Plan of Treatment Not on file documented as of this encounter Results * (ABNORMAL) Comprehensive Metabolic Panel (11/11/2020 2:57 PM EDT) Glucose 228(H) 65 - 99 mg/dL 11/11/2020 11:47 PM EDT [facility] BUN 10 6 - 20 mg/dL 11/11/2020 11:47 PM EDT [facility] Creatinine 0.73 0.57 - 1.00 mg/dL 11/11/2020 11:47 PM EDT [facility] Sodium 136 136 - 145 mmol/L 11/11/2020 11:47 PM EDT [facility] Potassium 4.2 3.5 - 5.2 mmol/L 11/11/2020 11:47 PM EDT [facility] Chloride 101 98 - 107 mmol/L 11/11/2020 11:47 PM EDT [facility] CO2 23.4 22.0 - 29.0 mmol/L 11/11/2020 11:47 PM EDT [facility] Calcium 9.3 8.6 - 10.5 mg/dL 11/11/2020 11:47 PM T [facility] Total Protein 7.0 6.0 - 8.5 g/dL 11/11/2020 11:47 PM EDT [facility] Albumin 4.10 3.50 - 5.20 g/dL 11/11/2020 11:47 PM T [facility] ALT (SGPT) 25 1 - 33 U/L 11/11/2020 11:47 PM T [facility] AST (SGOT) 15 1 - 32 U/L 11/11/2020 11:47 PM T [facility] Alkaline Phosphatase 91 39 - 117 U/L 11/11/2020 11:47 PM T [facility] Total Bilirubin 0.2 0.0 - 1.2 mg/dL 11/11/2020 11:47 PM [facility] eGFR Non Amer 92 >60 mL/min/1.7 3 11/11/2020 11:47 PM [facility] Globulin 2.9 gm/dL 11/11/2020 11:47 PM T [facility] A/G Ratio 1.4 g/dL 11/11/2020 11:47 PM T [facility] BUN/Creatinine Ratio 13.7 7.0 - 25.0 11/11/2020 11:47 PM [facility] Anion Gap 11.6 5.0 - 15.0 mmol/L 11/11/2020 11:47 PM [facility] Blood Venipuncture / Unknown 11/11/2020 2:57 PM EDT 11/11/2020 2:57 PM EDT [facility] - 11/11/2020 11:47 PM EDT GFR Normal >60 Chronic Kidney Disease <60 Kidney Failure <15 Martha Naik MD LAB BLOOD ORDERABLES Final Res ult Performing Organization Address [facility] Co de Phone Number [facility]
[address] [place] [address], * T4, Free (11/11/2020 2:57 PM EDT) [facility] T4 1.09 0.93 - 1.70 ng/dL 11/12/2020 12:09 AM EDT [facility] Blood Venipuncture / Unknown 11/11/2020 2:57 PM EDT 11/11/2020 2:57 PM EDT Narrative [facility] - 11/12/2020 12:09 AM EDT Results may be falsely increased if patient taking Biotin. Martha Naik MD LAB BLOOD ORDERABLES Final Res ult Performing Organization Address [facility] Co de Phone Number [facility]
[address] [place] [address], * TSH (11/11/2020 2:57 PM EDT) [facility] TSH 2.160 0.270 - 4.200 uIU/mL 11/12/2020 12:09 AM EDT [facility] Blood Venipuncture / Unknown 11/11/2020 2:57 PM EDT 11/11/2020 2:57 PM EDT Martha Naik MD LAB BLOOD ORDERABLES Final Res ult Performing Organization Address [facility] Co de Phone Number [facility]
[address] [place] [address], * (ABNORMAL) Hemoglobin A1c (11/11/2020 2:57 PM EDT) [facility] Hemoglobin A1C 8.25(H) 4.80 - 5.60 % 11/11/2020 11:11 PM EDT [facility] Blood Venipuncture / Unknown 11/11/2020 2:57 PM EDT 11/11/2020 2:57 PM EDT Narrative [facility] - 11/11/2020 11:11 PM EDT Hemoglobin A1C Ranges: Increased Risk for Diabetes ??5.7% to 6.4% Diabetes ? >= 6.5% Diabetic Goal ?< 7.0% us Martha Naik MD LAB BLOOD ORDERABLES Final Res ult [facility]
[address] [facility] [place] [address], documented in this encounter Visit Diagnoses Diagnosis Hyperthyroidism- Primary Thyrotoxicosis without mention of goiter or other cause, without mention of thyrotoxic crisis or storm Type 2 diabetes mellitus with hyperglycemia, without long-term current use of insulin Thyroiditis Unspecified thyroiditis documented in this encounter Care Teams Weatherseal Technician Relationship Specialty Start Date End Date Maine Leblanc PA [address] [place] [address] PCP - General 09/25/15 03/05/21 documented as of this encounter
--- OUTSIDE RECORDS SUMMARY | 2024-06-26 16:07 | XMS_ITS | Encounter Summary ---
[facility] [address] [place] [address] Care Team Providers Care Edge Kitter Name Role Phone Maine Leblanc Primary Care Provide r Encounter Details Date Type Department Care Team (Late st Contact Info) Description 01/24/2020 Telephone [facility] ENDOCRINOLOGY [address] [place] [phone] Martha Grajeda MD [address] [place] [address] Social History Tobacco Use Types Packs/Day Years [...] Encounter - Janessa Davenport MA - 01/30/2020 10:51 AM EDT Returned patient call, answered question, she expressed understanding * Telephone Encounter - Martha Grajeda MD - 01/28/2020 4:27 PM EDT What are her morning numbers? If they are >150 ask her to continue increasing Lantus by 2 units every 3 days until her morning numbers are <150. Increase glyburide dose (if she is taking 1 tab now, increase to 2 tab daily). If this doesn't work, increase glyburide further up to 3-4 tablets daily. Call with glucose numbers in a few days. PLease Make sure she has appt soon * Telephone Encounter - Deb Benavides MA - 01/28/2020 1:27 PM EDT Please advise, Pt had labs drawn at another office and her A1C was either 8.1 or 8.6, she can't remember exactly. She is carb counting and following 30g at breakfast, 45 at lunch and 60 with dinner. Her PCP increased her Lantus to 30u daily and she still takes 5mg of glyburide. Her concern is that after meals her sugar goes up to as much as 30 and after exercise it goes higher than 300. She is aware that you will be back in the office tomorrow and that we will get back with her as soon as we could. * Telephone Encounter - Lin Chawla - 01/24/2020 1:30 PM EDT PATIENT IS CALLING WANTING A CALL BACK ABOUT HER RECENT LAB RESULTS. PHONE NUMBER IS [phone] documented in this encounter Plan of Treatment Not on file documented as of this encounter Visit Diagnoses Not on filedocumented in this encounter Care Teams Edge Kitter Relationship Specialty Start Date End Date Maine Leblanc PA [address] [place] [address] PCP - General 09/25/15 03/05/21 documented as of this encounter
--- OUTSIDE RECORDS SUMMARY | 2024-06-26 16:07 | XMS_ITS | Encounter Summary ---
[facility] Address [address] [place] [address] Care Team Providers Care Gold Charmer Name Role Phone Maine Leblanc Primary Care Provide r Reason for Visit * Reason Comments Urinary Tract Infection Encounter Details Date Type Department Care Team (Late st Contact Info) Description 12/17/2018 12:30 PM EDT Office Visit [facility] [address] [place] [address] Dysuria (Primary Dx); Urinary tract infection with hematuria, site unspecified Social History Tobacco Use Types Packs/Day Years Used Date Smoking Tobacco: Former Cigarettes Smokeless Tobacco: Never Tobacco Cessation:Counseling Given: [...] Reading Time Taken Comments Blood Pressure 108/72 12/17/2018 12:25 PM EDT Pulse 83 12/17/2018 12:25 PM EDT Temperature 37.1 ??C (98.7 ??F) 12/17/2018 12:25 PM E DT Respiratory Rate 14 12/17/2018 12:25 PM EDT Oxygen Saturation 99% 12/17/2018 12:25 PM EDT Inhaled Oxygen Concentration - - Weight 127 kg (280 lb) 12/17/2018 12:25 PM EDT Height 172.7 cm (5' 8 ) 12/17/2018 12:25 PM EDT Body Mass Index 42.57 12/17/2018 12:25 PM EDT documented in this encounter Patient Instructions * Patient Instructions* Manny Monrealabdirizak Mattson, DOOR FITTER - 12/17/2018 12:30 PM EDT Images from the original note were not included. and Urinary Tract Infection What is a urinary tract infection? A urinary tract infection (UTI) is an infection of any part of the urinary tract. This includes thekidneys, the tubes that connect your kidneys to your bladder (ureters), the bladder, and the tube that carries urine out of your body (urethra). These organs make, store, and get rid of urine in the body. A UTI can be a bladder infection (cystitis) or a kidney infection (pyelonephritis). This infection may be caused by fungi, viruses, and bacteria. Bacteria are the most common cause of UTIs. You are more likely to develop a UTI during because: ?? The physical and hormonal changes your body goes through can make it easier for bacteria to get into your urinary tract. ?? Your growing baby puts pressure on your uterus and can affect urine flow. Does a UTI place my baby at risk? An untreated UTI during could lead to a kidney infection, which can cause health problemsthat could affect your baby. Possible complications of an untreated UTI include: ?? Having your baby before 37 weeks of (premature). ?? Having a baby with a low weight. ?? Developing high blood pressure during (preeclampsia). What are the symptoms of a UTI? Symptoms of a UTI include: ?? Fever. ?? Frequent urination or passing small amounts of urine frequently. ?? Needing to urinate urgently. ?? Pain or a burning sensation with urination. ?? Urine that smells bad or unusual. ?? Cloudy urine. ?? Pain in the lower abdomen or back. ?? Trouble urinating. ?? Blood in the urine. ?? Vomiting or being less hungry than normal. ?? Diarrhea or abdominal pain. ?? Vaginal discharge. What are the treatment options for a UTI during ? Treatment for this condition may include: ?? Antibiotic medicines that are safe to take during . ?? Other medicines to treat less common causes of UTI. How can I prevent a UTI? To prevent a UTI: ?? Go to the bathroom as soon as you feel the need. ?? Always wipe from front to back. ?? Wash your genital area with soap and warm water daily. ?? Empty your bladder before and after sex. ?? Wear cotton underwear. ?? Limit your intake of high sugar foods or drinks, such as regular soda, juice, and sweets. ?? Drink 6-8 glasses of water daily. ?? Do not wear tight-fitting pants. ?? Do not douche or use deodorant sprays. ?? Do not drink alcohol, caffeine, or carbonated drinks. These can irritate the bladder. Contact a health care provider if: ?? Your symptoms do not improve or get worse. ?? You have a fever after two days of treatment. ?? You have a rash. ?? You have abnormal vaginal discharge. ?? You have back or side pain. ?? You have chills. ?? You have nausea and vomiting. Get help right away if: Seek immediate medical care if you are and: ?? You feel contractions in your uterus. ?? You have lower belly pain. ?? You have a gush of fluid from your vagina. ?? You have blood in your urine. ?? You are vomiting and cannot keep down any medicines or water. This information is not intended to replace advice given to you by your health care provider. Make sure you discuss any questions you have with your health care provider. Document Released: 11/05/2011 Document Revised: 06/24/2017 Document Reviewed: 05/31/2016 [employer] Interactive Patient Education ?? 2019 [employer] documented in this encounter Progress Notes * Jacinto Garcia MA - 12/17/2018 12:30 PM EDTAddended by: JACINTO GARCIA on: 12/17/2018 12:48 PM Modules accepted: Orders * Sommer Monreal APRN - 12/17/2018 12:30 PM EDT Urinary Tract Infection Subjective Pat Murphy is a 28 y.o. female. Urinary Tract Infection This is a recurrent problem. The current episode started yesterday. The problem occurs every urination. The problem has been gradually worsening. The quality of the pain is described as aching. The pain is at a severity of 4/10. The pain is moderate. There has been no fever. She is sexually active.There is no history of pyelonephritis. Associated symptoms include frequency, hesitancy, a possible ( 22 weeks) and urgency. Pertinent negatives include no chills, discharge, flank pain, hematuria or vomiting. She has tried acetaminophen for the symptoms. The treatment provided norelief. Her past medical history is significant for recurrent UTIs. There is no history of catheterization, kidney stones, a single kidney, urinary stasis or a urological procedure. Patient Active Problem List Diagnosis ??? Diabetes mellitus (CMS/HCC) ??? Morbid obesity (CMS/HCC) ??? Polycystic ovaries ??? Depression ??? Hyperthyroidism ??? Allergies Allergen Reactions ??? Ciprofloxacin Hives ??? Sulfa Antibiotics Hives Current Outpatient Medications on File Prior to Visit Medication Sig Dispense Refill ??? HUMALOG KWIKPEN 100 UNIT/ML solution pen-injector ??? LANTUS SOLOSTAR 100 UNIT/ML injection pen ??? MV-Min-Fe Fum-FA-DHA ( 1 PO) Take by mouth Daily. ??? [DISCONTINUED] vitamin D (ERGOCALCIFEROL) 51919 units capsule capsule No current facility-administered medications on file prior to visit. Past Medical History: Diagnosis Date ??? Constipation ??? Cystitis, interstitial ??? Fatigue ??? History of gestational diabetes mellitus ??? History of ovarian cyst ??? Joint pain diffuse joint pain ??? Polycystic ovary syndrome ??? Type 2 diabetes mellitus (CMS/HCC) Past Surgical History: Procedure Laterality Date ??? MOUTH SURGERY Family History Problem Relation Age of Onset ??? Hypertension Mother ??? Diabetes Father ??? Hypertension Father ??? Hypertension Maternal Grandmother ??? Hypertension Maternal Grandfather ??? Diabetes Paternal Grandmother ??? Hypertension Paternal Grandmother ??? Diabetes Paternal Grandfather ??? Hypertension Paternal Grandfather ??? Obesity Other ??? Mental illness Other ??? Hyperlipidemia Other ??? Kidney disease Other Kidney transplanted Social History Socioeconomic History ??? Marital status: Spouse name: Not on file ??? Number of children: Not on file ??? Years of education: Not on file ??? Highest education level: Not on file Tobacco Use ??? Smoking status: Former Smoker Packs/day: 0.50 Types: Cigarettes ??? Smokeless tobacco: Never Used Substance and Sexual Activity ??? Alcohol use: No ??? Drug use: No ??? Sexual activity: Defer Travel: No recent travel within the last 21 days outside the [place] Denies recent travel to one of the following [place] Countries: [place], [place], [place], or [place]. Denies contact with anyone who has traveled to one of the following [place] Countries: [place], [place], [place], or [facility] within the last 21 days and is known or suspected to have Ebola. Denies having had any contact with the human remains, blood or any bodily fluids of someone who is known or suspected to have Ebola within the last 21 days. OB History Para Term AB Living 1 SAB TAB Ectopic Molar Multiple Live Births Review of Systems Constitutional: Positive for fatigue. Negative for chills and fever. HENT: Negative. Eyes: Negative. Respiratory: Negative for cough, chest tightness, shortness of breath and wheezing. Cardiovascular: Negative for chest pain. Gastrointestinal: Negative for abdominal distention, abdominal pain, constipation, diarrhea and vomiting. Genitourinary: Positive for dysuria, frequency, hesitancy and urgency. Negative for flank pain and hematuria. Musculoskeletal: Negative. Neurological: Negative. Psychiatric/Behavioral: Negative. BP 108/72 Pulse 83 Temp 98.7 ??F (37.1 ??C) Resp 14 Ht 172.7 cm (68 ) Wt 127 kg (280 lb) LMP 07/10/2018 SpO2 99% ? No BMI 42.57 kg/m?? Objective Physical Exam Constitutional: She is oriented to person, place, and time. She appears well- developed and well-nourished. No distress. HENT: Head: Normocephalic and atraumatic. Right Ear: External ear normal. Left Ear: External ear normal. Nose: Nose normal. Mouth/Throat: Oropharynx is clear and moist. Eyes: Conjunctivae and EOM are normal. Pupils are equal, round, and reactive to light. Right eye exhibits no discharge. Left eye exhibits no discharge. No scleral icterus. Neck: Normal range of motion. Neck supple. No thyromegaly present. Cardiovascular: Normal rate, regular rhythm and normal heart sounds. Pulmonary/Chest: Effort normal and breath sounds normal. Abdominal: Soft. Bowel sounds are normal. Musculoskeletal: Normal range of motion. Lymphadenopathy: She has no cervical adenopathy. Neurological: She is alert and oriented to person, place, and time. Skin: Skin is warm and dry. No rash noted. She is not diaphoretic. Psychiatric: She has a normal mood and affect. Her behavior is normal. Assessment/Plan Pat was seen today for urinary tract infection. Diagnoses and all orders for this visit: Dysuria - POC Urinalysis Dipstick, Automated Urinary tract infection with hematuria, site unspecified - amoxicillin-clavulanate (AUGMENTIN) 875-125 MG per tablet; Take 1 tablet by mouth 2 (Two) Times aDay for 7 days. - Urine Culture - Urine, Urine, Clean Catch; Future Plan of care discussed with patient:discussed female hygiene, increase fluids; notify spray gun operator of UTI; clinic will call with culture results in 3-4 days; Go to ER for no improvement or new/worsening symptoms. Verbalized understanding. Results for orders placed or performed in visit on 12/17/18 POC Urinalysis Dipstick, Automated Result Value Ref Range Color Dark Yellow Yellow, Straw, Dark Yellow, Mariya Clarity, UA Cloudy (A) Clear Specific [place] 1.030 1.005 - 1.030 pH, Urine 6.0 5.0 - 8.0 Leukocytes Moderate (2+) (A) Negative Nitrite, UA Positive (A) Negative Protein, POC 30 mg/dL (A) Negative mg/dL Glucose, UA Negative Negative, 1000 mg/dL (3+) mg/dL Ketones, UA Negative Negative Urobilinogen, UA Normal Normal Bilirubin Negative Negative Blood, UA Trace (A) Negative No Follow-up on file. documented in this encounter Plan of Treatment Not on file documented as of this encounter Procedures Procedure Name Priority Date/Time Associated Diagnosis Comments URINE CULTURE Routine 12/17/2018 12:48 PM EDT Dysuria Urinary tract infection with hematuria, site unspecified POCT URINALYSIS DIPSTICK, AUTOMATED Routine 12/17/2018 12:24 PM EDT Dysuria documented in this encounter Results * (ABNORMAL) Urine Culture - Urine, Urine, Clean Catch (12/17/2018 12:48 PM EDT) Urine Culture Final report(A) [facility] Result 1 Escherichia coli(A) [facility] Comment: Greater than 100,000 colony forming units per mL Cefazolin <=4 ug/mL Cefazolin with an CONCHIS <=16 predicts susceptibility to the oral agents cefaclor, cefdinir, cefpodoxime, cefprozil, cefuroxime, cephalexin, and loracarbef when used for therapy of uncomplicated urinary tract infections due to E. coli, Klebsiella pneumoniae, and Proteus mirabilis. Susceptibility Testing Comment [facility] Comment: ? S = Susceptible; I = Intermediate; R = Resistant ? P = Positive; N = Negative ?MICS are expressed in micrograms per mL ?? Antibiotic ? RSLT#1 ?RSLT#2 ?RSLT#3 ?RSLT#4 Amoxicillin/Clavulanic Acid ?S Ampicillin ? S Cefepime ? S Ceftriaxone ?S Cefuroxime ? S Ciprofloxacin ?S Ertapenem ?S Gentamicin ? S Imipenem ? S Levofloxacin ? S Meropenem ?S Nitrofurantoin ? S Piperacillin/Tazobactam ?S Tetracycline ? S Tobramycin ? S Trimethoprim/Sulfa ? S Urine Urine specimen collection, clean catch / Unknown 12/17/2018 12:48 PM EDT 12/18/2018 Comment:URINE Narrative [facility] - 12/20/2018 4:09 PM EDT Performed at: ??01 - [facility] [address] ??[id number] Slicing Machine Operator: Reg Singh PhD, Phone: ??[phone] Sommer Monreal APRN MICROBIOLOGY - GENERAL [place]AS Final Result Performing Organization Address City/State/[facility] Co de Phone Number [facility] [address] [place] [phone], [facility] [address] [place] [phone], * (ABNORMAL) POC Urinalysis Dipstick, Automated (12/17/2018 12:24 PM EDT) Color Dark Yellow Yellow, Straw, Dark Yellow, Mariya [facility] Clarity, UA Cloudy(A) Clear [facility] Specific [place] 1.030 1.005 - 1.030 [facility] pH, Urine 6.0 5.0 - 8.0 [facility] Leukocytes Moderate (2+)(A) Negative [facility] Nitrite, UA Positive(A) Negative [facility] Protein, POC 30 mg/dL(A) Negative mg/dL [facility] Glucose, UA Negative Negative, 1000 mg/dL (3+) mg/dL [facility] Ketones, UA Negative Negative [facility] Urobilinogen, UA Normal Normal [facility] Bilirubin Negative Negative [facility] Blood, UA Trace(A) Negative [facility] Urine 12/17/2018 12:2 4 PM EDT us Sommer Monreal DOOR FITTER POINT OF CARE TEST ORDERABL ES Final Result [facility]
[address] [place] [address], documented in this encounter Visit Diagnoses Diagnosis Dysuria- Primary Urinary tract infection with hematuria, site unspecified documented in this encounter Care Teams Gold Charmer Relationship Specialty Start Date End Date Maine Leblanc PA [address] [place] [id number] PCP - General 09/25/15 03/05/21 documented as of this encounter
--- OUTSIDE RECORDS SUMMARY | 2024-06-26 16:07 | XMS_ITS | Encounter Summary ---
[facility] Address [address] [place] [address] Care Team Providers Care Clothing Busheler Name Role Phone Maine Leblanc Primary Care Provide r Reason for Visit * Reason Comments Diabetes Follow Up Encounter Details Date Type Department Care Team (Late st Contact Info) Description 03/22/2018 11:45 AM EDT Office Visit [facility] ENDOCRINOLOGY [address] [place] [phone] Martha Grajeda MD [address] [place], [place] [id number] Type 2 diabetes mellitus without complication, unspecified detention insulin use status (CMS/[facility]) (Primary Dx); Hyperthyroidism; Polycystic ovaries; Morbid obesity; Smoking Social History Tobacco Use Types Packs/Day Years [...] Sign Reading Time Taken Comments Blood Pressure 126/74 03/22/2018 11:45 AM EDT Pulse 70 03/22/2018 11:45 AM EDT Temperature - - Respiratory Rate - - Oxygen Saturation 99% 03/22/2018 11:45 AM EDT Inhaled Oxygen Concentration - - Weight 126 kg (278 lb 3.2 oz) 03/22/2018 11:45 A M EDT Height 172.7 cm (5' 8 ) 03/22/2018 11:45 AM EDT Body Mass Index 42.3 03/22/2018 11:45 AM EDT documented in this encounter Progress Notes * Martha Grajeda MD - 03/22/2018 11:45 AM EDT Chief complaint Diabetes (Follow Up) Subjective Pat Murphy is a 28 y.o. female is here today for follow-up. Diabetes She presents for her follow-up diabetic visit. She has type 2 diabetes mellitus. Pertinent negatives for hypoglycemia include no headaches. Pertinent negatives for diabetes include no chest pain, no fatigue, no polydipsia and no polyuria. Hyperthyroidism Associated symptoms include abdominal pain (intermittent sharp abdominal pains. ). Pertinent negatives include no arthralgias, chest pain, congestion, fatigue, headaches, joint swelling, myalgias, nausea, numbness or rash. Diabetes mellitus type 2 diagnosed 09/15/15 Reports having gestational DM with first ; took Glyburide during that time. Meds: metformin ER 500 mg - 2 tablets bid with food. Glyburide added last week after glucose spikedto 200. Improved with 1 tab daily Monitoring - daily, since she started carb counting and following the diet her glucose improved. Glucometer reviewed and data is 92 -120. Occasionally 140. Exercised regularly and walks. Past meds: Took Januvia 100 mg for [...] otherwise normal thyroid scan 25 mg BID Active problems: PCOS - dx 2006 Morbid Obesity - working on diet and exercise program. She takes Vitamin D 50 000 IU weekly. She is undergoing family planning. TRying to quit smoking, keeps relapsing. Nicotine patches are not effective. Medications Current Outpatient Prescriptions: ??? escitalopram (LEXAPRO) 10 MG tablet, , Disp: , Rfl: ??? glimepiride (AMARYL) 1 MG tablet, Take 1 - 2 tablets PO daily before breakfast, Disp: 60 tablet, Rfl: 3 ??? LATUDA 80 MG tablet, Take 1 tablet by mouth Daily. with food., Disp: , Rfl: 0 ??? letrozole (FEMARA) 2.5 MG tablet, , Disp: , Rfl: ??? metFORMIN ER (GLUCOPHAGE-XR) 500 MG 24 hr tablet, 2 tablets bid with food, Disp: 120 tablet, Rfl: 11 ??? propylthiouracil (PTU) 50 MG tablet, Take 0.5 tablets by mouth 2 (Two) Times a Day., Disp: 30 tablet, Rfl: 6 ??? traZODone (DESYREL) 50 MG tablet, , Disp: , Rfl: ??? buPROPion XL (WELLBUTRIN XL) 150 MG 24 hr tablet, Take 1 tablet by mouth Every Morning., Disp: 30 tablet, Rfl: 5 PMH The following portions of the patient's history were reviewed and updated as appropriate: allergies, current medications, past family history, past medical history, past social history, past surgicalhistory and problem list. Review of systems Review of Systems Constitutional: Positive for unexpected weight change (weight gain). Negative for fatigue. HENT: Negative for congestion. Eyes: Negative for visual disturbance. Respiratory: Negative for shortness of breath. Cardiovascular: Positive for palpitations (intermittent fluttering sensation. associated with dizziness and nause). Negative for chest pain and leg swelling. Gastrointestinal: Positive for abdominal pain (intermittent sharp abdominal pains. ) and diarrhea. Negative for constipation and nausea. Endocrine: Negative for cold intolerance, heat intolerance (increased sweating), polydipsia and polyuria. Genitourinary: Irregular menses, taking Provera 10 mg - day 1 - 10 of each month to start Menses Musculoskeletal: Negative. Negative for arthralgias, back pain, joint swelling and myalgias. Skin: Negative for rash and wound. Allergic/Immunologic: Negative for environmental allergies. Neurological: Negative. Negative for numbness and headaches. Hematological: Negative. Psychiatric/Behavioral: Negative for behavioral problems and self-injury. Depression All other systems reviewed and are negative. Physical exam Objective Blood pressure 126/74, pulse 70, height 172.7 cm (68 ), weight 126 kg (278 lb 3.2 oz), SpO2 99 %, not currently . Physical Exam Constitutional: She is oriented to person, place, and time. She appears well- developed and well-nourished. Morbidly obese HENT: Head: Normocephalic and atraumatic. Eyes: Pupils are equal, round, and reactive to light. Conjunctivae and EOM are normal. Neck: Normal range of motion. Neck supple. [...] reviewed. LABS AND IMAGING Office Visit on 03/22/2018 Component Date Value Ref Range Status ??? Glucose 03/22/2018 93 70 - 130 mg/dL Final ??? Hemoglobin A1C 03/22/2018 6.2 % Final NM THYROID UPTAKE AND SCAN 04/28/2017 IMPRESSION: 1. Four hour and 24-hour thyroid uptake appear within normal limits. 36% at 24 hours. 2. Slightly heterogeneous uptake pattern in the inferior right thyroid lobe, otherwise normal appearing thyroid scan. Assessment Assessment/Plan Problem List Items Addressed This Visit Digestive Morbid obesity ([facility]) Endocrine Diabetes mellitus ([facility]) - Primary Relevant Orders POC Glucose Fingerstick (Completed) POC Glycosylated Hemoglobin (Hb A1C) (Completed) Polycystic ovaries Hyperthyroidism Other Visit Diagnoses Smoking Plan Glucose goals reviewed. Continue metformin 1000 mg BID, glyburide 1 tab daily. meds refilled. A1C is 6.2, at goal Cont with carb consistent diet and exercise, the importance of lifestyle modifications revisited. Monitor multiple times a day Repeat TFT and I will advice on PTU dose. I have recommended to cont 25 mg BID. Smoking cessation reviewed and advised to start wellbutrin to help with success. Rx sent. 4 min spent counselling Follow-up in 4 months. Monitor TFT every 2-3 months. documented in this encounter Plan of Treatment Not on file documented as of this encounter Procedures Procedure Name Priority Date/Time Associated Diagnosis Comments TSH Routine 03/22/2018 12:09 PM EDT Hyperthyroidism T4, FREE Routine 03/22/2018 12:09 PM EDT Hyperthyroidism POCT GLYCOSYLATED HEMOGLOBIN (HGB A1C) Routine 03/22/2018 11:51 AM EDT Type 2 diabetes mellitus without complication, unspecified detention insulin use status ([facility]/HCC) POCT GLUCOSE FINGERSTICK Routine 03/22/2018 11:51 AM EDT Type 2 diabetes mellitus without complication, unspecified detention insulin use status (CMS/HCC) documented in this encounter Results * T4, Free (03/22/2018 12:09 PM EDT) Free T4 1.01 0.89 - 1.76 ng/dL 03/22/2018 4:29 PM EDT [facility] Blood Venipuncture / Unknown 03/22/2018 12:09 PM EDT 03/22/2018 12:09 PM EDT us Martha Naik MD LAB BLOOD ORDERABLES Final Res ult Performing Organization Address [facility] Co de Phone Number [facility]
[address] [place] [address], * TSH (03/22/2018 12:09 PM EDT) TSH 1.257 0.350 - 5.350 mIU/mL 03/22/2018 4:29 PM EDT [facility] Blood Venipuncture / Unknown 03/22/2018 12:09 PM EDT 03/22/2018 12:09 PM EDT Martha Naik MD LAB BLOOD ORDERABLES Final Res ult Performing Organization Address City/[facility]/ZIP Co de Phone Number [facility]
[address] [place] [address], * POC Glycosylated Hemoglobin (Hb A1C) (03/22/2018 11:51 AM EDT) Hemoglobin A1C 6.2 % [facility] Blood 03/22/2018 11:5 1 AM EDT us Martha Naik MD POINT OF CARE TEST ORDERABLES Final Result Performing Organization Address City/[facility] Co de Phone Number [facility]
[address] [id number], [place] [phone] * POC Glucose Fingerstick (03/22/2018 11:51 AM EDT) Glucose 93 70 - 130 mg/dL [facility] Blood 03/22/2018 11:5 1 AM EDT us Martha Naik MD POINT OF CARE TEST ORDERABLES Final Result Performing Organization Address [facility] Phone Number [facility]
[address] [id number], [place] [phone] documented in this encounter Visit Diagnoses Diagnosis Type 2 diabetes mellitus without complication, unspecified detention insulin use status- Primary Hyperthyroidism Thyrotoxicosis without mention of goiter or other cause, without mention of thyrotoxic crisis or storm Polycystic ovaries Morbid obesity Smoking Tobacco use disorder documented in this encounter Care Teams Clothing Busheler Relationship Specialty Start Date End Date Maine Leblanc PA [address] [place] [address] PCP - General 09/25/15 03/05/21 documented as of this encounter
--- OUTSIDE RECORDS SUMMARY | 2024-06-26 16:07 | XMS_ITS | Encounter Summary ---
[facility] Address [address] [place] [address] Care Team Providers Care Kindergarten Prep Teacher Name Role Phone Maine Leblanc Primary Care Provide r Encounter Details Date Type Department Care Team (Late st Contact Info) Description 11/30/2019 Telephone [facility] ENDOCRINOLOGY [address] [place] [phone] Martha Grajeda MD [address] [place] [address] Social History Tobacco Use Types Packs/Day Years [...] encounter Miscellaneous Notes * Telephone Encounter - Maren Canela MA - 11/30/2019 1:23 PM EDT Spoke with pt and told her she has not been seen since 05/15/19 so she would need an apt. I did discuss with pt that she should send a Voice Of [employer] message prior to that apt with her blood sugar so it could be discussed during her apt. Pt requested a MyChart video visit. Pt scheduled for 12/07/19. * Telephone Encounter - Sherine Stewart - 11/30/2019 10:37 AM EDT PLEASE CALL PT SHE IS HAVING PROBLEMS WITH HER BLOOD SUGARS THEY HAVE BEEN RUNNING AND STAYING 200-300 SHE TAKES METFORMIN AND GLYBURIDE PTS NUMBER IS [phone] documented in this encounter Plan of Treatment Not on file documented as of this encounter Visit Diagnoses Not on filedocumented in this encounter Care Teams Kindergarten Prep Teacher Relationship Specialty Start Date End Date Maine Leblanc PA [address] [place], [place] [id number] PCP - General 09/25/15 03/05/21 documented as of this encounter
--- OUTSIDE RECORDS SUMMARY | 2024-06-26 16:07 | XMS_ITS | Encounter Summary ---
[facility] Address [address] [place] [address] Care Team Providers Care Addictions Recovery Specialist Name Role Phone Maine Leblanc Primary Care Provide r Encounter Details Date Type Department Care Team ([facility] st Contact Info) Description 01/26/2019 Telephone [facility] INTERNAL MEDICINE [address] [place] [phone] Riccardo Driscoll PA-C [address] [place], [place] [id number] Social History Tobacco Use Types Packs/Day Years [...] encounter Miscellaneous Notes * Telephone Encounter - iLsa Arnold - 01/26/2019 8:39 AM EDT PATIENT WOULD LIKE A CALL BACK FOR BLOOD RESULTS. PATIENTS NUMBER IS [phone] documented in this encounter Plan of Treatment Not on file documented as of this encounter Visit Diagnoses Not on filedocumented in this encounter Care Teams Addictions Recovery Specialist Relationship Specialty Start Date End Date Maine Leblanc PA [address] [place] [address] PCP - General 09/25/15 03/05/21 documented as of this encounter
--- OUTSIDE RECORDS SUMMARY | 2024-06-26 16:07 | XMS_ITS | Encounter Summary ---
[facility] [address] [place] [address] Care Team Providers Care Data Analyst Name Role Phone Maine Leblanc Primary Care Provide r Encounter Details Date Type Department Care Team (Late st Contact Info) Description 01/14/2020 Telephone [facility] ENDOCRINOLOGY [address] [place] [phone] Martha Grajeda MD [address] [place] [address] Social History Tobacco Use Types Packs/Day Years [...] Telephone Encounter - Martha Grajeda MD - 02/15/2020 8:12 AM EDT Increase lantus to 36 if numbers are still > 150. * Telephone Encounter - Refugio Donahue MA - 02/14/2020 4:42 PM EDT Spoke with patient concerning fasting glucose numbers and lantus. Pt stated that she has increased her lantus and doing 34 units a day with her fasting levels still running about in the 180's . Please advise if you would like for patient to do anything else concerning her levels. Thanks * Telephone Encounter - Refugio Donahue MA - 01/29/2020 1:41 PM EDT LVM for patient to return the call. Office number given. * Telephone Encounter - Martha Grajeda MD - 01/29/2020 1:04 PM EDT Increase lantus by 3-4 units every 3-4 days until fasting numbers are < 150. * Telephone Encounter - Refugio Donahue MA - 01/29/2020 11:01 AM EDT Spoke with patient concerning blood glucose levels. Pt states that her fasting numbers are a littlebetter but she is having trouble with meals and exercise levels. Pt stated that right now her sugaris 234. Informed patient of the dose increase for glyburide 10mg.(medication has been sent) Also informed patient that I would send a message to Dr. Grajeda concerning glucose levels and someone wouldreach back out to her . Pt voiced understanding. Please advise ? * Telephone Encounter - Martha Grajeda MD - 01/22/2020 11:14 AM EDT Please call this patient next week (January 27) and ask if glucose improved. If numbers are still high during the day depsite improved morning, ask to increase glyburide to 10 mg daily. * Telephone Encounter - Jayna Kauffman DO - 01/22/2020 10:45 AM EDT Spoke to the patient and recommended that she discontinue the immediate release metformin due to GIintolerance. BG's are running 180s to 200s all day long. Recommended she increase her Lantus by 4 units every other day until BG's are trending in the mid 100s or less. Call the office with continuedissues. * Telephone Encounter - Refugio Donahue MA - 01/22/2020 8:59 AM EDT Spoke with patient concerning sx's she is having with metformin. Pt states that she is having some abdominal pain/ gastro issues since being put back on the plain metformin, which is what she had in the past. Pt also stated that she is still having elevated blood sugar numbers running within the 180-200 range. Pt stated that she is taking 16 units of lantus. Informed patient that Taras Rangel is out of the office this week, that I would send a message to the on the [employer] m[employer] provider and someone would get back with her , pt verbalized understanding , please advise ? * Telephone Encounter - Refugio Donahue MA - 01/22/2020 8:20 AM EDT LVM for patient to return the call concerning metformin and stomach issues. Office number given. * Telephone Encounter - Lin Chawla - 01/21/2020 2:36 PM EDT PATIENT IS CALLING STATING SHE IS HAVING ISSUES WITH THE METFORMIN. ITS CAUSING HER STOMACH TO HURTREAL BAD. SHE ALSO STATES THE LANTUS IS NOT HELPING FASTING NUMBERS. NUMBERS ARE STAYING IN THE 200RANGE. PHONE NUMBER IS [phone] * Telephone Encounter - Vidhya Heath MD - 01/15/2020 3:55 PM EDT Spoke with patient about the recent recall of extended release Metformin from certain manufacturers. Discussed with patient that Dr. Grajeda sent a prescription for plain metformin 500 mg twice daily to her pharmacy on January 02, 2020. Advised patient to take 1 tablet daily with dinner for 2 weeks andthen increase to 1 tablet twice a day as tolerated. If the plain metformin is not tolerated by the patient, advised her to call the office and leave a message for Dr. Grajeda. Signed: Vidhya Heath MD * Telephone Encounter - Refugio Donahue MA - 01/14/2020 3:34 PM EDT Spoke with patient concerning metformin being called. Pt states that she is taking the extended release . Informed patient that I would forward this message to a provider to see if medication can be changed. Pt verbalized understanding. Please advise ? * Telephone Encounter - Lin Chawla - 01/14/2020 2:50 PM EDT PATIENT RECEIVED A LETTER ABOUT RECALL ON METFORMIN AND WAS ADVISED TO CONTACT DOCTOR OFFICE TO DISCUSS ISSUES WITH RECALL. PHONE NUMBER IS [phone] documented in this encounter Plan of Treatment Not on file documented as of this encounter Visit Diagnoses Not on filedocumented in this encounter Care Teams Data Analyst Relationship Specialty Start Date End Date Maine Leblanc PA [address] [place] [address] PCP - General 09/25/15 03/05/21 documented as of this encounter
--- OUTSIDE RECORDS SUMMARY | 2024-06-26 16:07 | XMS_ITS | Encounter Summary ---
[facility] Address [address] [place] [address] Care Team Providers Care Senior Telecommunications Technician Name Role Phone Maine Leblanc Primary Care Provide r Reason for Visit * Reason Comments Diabetes Follow Up: Blood Sug ars have been higher than previously since coming off Insulin from giving Encounter Details Date Type Department Care Team (Late st Contact Info) Description 05/15/2019 9:00 AM EDT Office Visit [facility] [address] [place] [address] Martha Grajeda MD [address] [place] [address] Type 2 diabetes mellitus with [...] Sign Reading Time Taken Comments Blood Pressure 110/74 05/15/2019 9:15 AM EDT Pulse 71 05/15/2019 9:15 AM EDT Temperature - - Respiratory Rate - - Oxygen Saturation 98% 05/15/2019 9:15 AM EDT Inhaled Oxygen Concentration - - Weight 134 kg (295 lb 9.6 oz) 05/15/2019 9:15 AM EDT Height 172.7 cm (5' 8 ) 05/15/2019 9:15 AM EDT Body Mass Index 44.95 05/15/2019 9:15 AM EDT documented in this encounter Progress Notes * Martha Grajeda MD - 05/15/2019 9:00 AM EDT Chief complaint Diabetes (Follow Up: Blood Sugars have been higher than previously since coming off Insulin from giving ) Subjective Pat Murphy is a 29 y.o. female is here today for follow-up. Diabetes mellitus type 2 diagnosed 09/15/15. Reports having gestational DM with first ; took Glyburide during that time. Meds: prior to metformin ER 500 mg - 2 tablets bid with food. Glyburide 2.5 mg daily. During she required insulin Lantus and Humalog , which was discontinued after the delivery. Monitoring - she has noted that her glucose is higher, often close to 200. March 2017 she was diagnosed with hyperthyroidism [...] of . Thyroid levels were tested with environmental emergencies assistant Cha Osorio and levels were normal off the medication. November 2018 sh ehad TSH 2.77 and low FT4, was started on levothyroxine 25 at that time and increased to 50mcg 01/23/19 by environmental emergencies assistant. She is currently taking 50 mcg levothyroxine, C/o heart palpitations, no tremors or anxiety, has some insomnia. Baby is healthy, formula fed. Medications Current Outpatient Medications: ??? glyBURIDE (DIAbeta) 2.5 MG tablet, 1 PO Daily, Disp: 30 tablet, Rfl: 5 ??? levothyroxine (SYNTHROID, LEVOTHROID) 50 MCG tablet, Take 1 tablet by mouth Daily., Disp: 30 tablet, Rfl: 6 ??? metFORMIN ER (GLUCOPHAGE-XR) 500 MG 24 hr tablet, 2 PO BID with Food, Disp: 120 tablet, Rfl: 5 ??? B-D UF III MINI PEN NEEDLES 31G X 5 MM [facility], , Disp: , Rfl: ??? HUMALOG KWIKPEN 100 UNIT/ML solution pen-injector, Take up to 30u tid ac, Disp: 9 pen, Rfl: 6 ??? LANTUS SOLOSTAR 100 UNIT/ML injection pen, Inject 75 Units under the skin into the appropriate area as directed Every Night., Disp: 8 pen, Rfl: 6 PMH The following portions of the patient's [...] are negative. Physical exam Objective Blood pressure 110/74, pulse 71, height 172.7 cm (68 ), weight 134 kg (295 lb 9.6 oz), last menstrual period 07/10/2018, [...] Pulmonary/Chest: Effort normal and breath sounds normal. Neurological: She is alert and oriented to person, place, and time. She has normal reflexes. No hand tremor Psychiatric: She has a normal mood and affect. Thought content normal. Nursing note and vitals reviewed. LABS AND IMAGING Office Visit on 05/15/2019 Component Date Value Ref Range Status ??? Glucose 05/15/2019 229* 70 - 130 mg/dL Final ??? Hemoglobin A1C 05/15/2019 5.8 % Final Assessment Assessment/Plan Problem List Items Addressed This Visit Endocrine Diabetes mellitus ([facility]) - Primary Relevant Orders POC Glucose Fingerstick (Completed) POC Glycosylated Hemoglobin (Hb A1C) (Completed) Polycystic ovaries Hyperthyroidism Plan A1C is 5.8 today.Increase glyburide dose to 5mg daily. Consider adding another agent if glucose is still high. She will return to regular exercises in a few weeks. It should help with glyceic control as well. Glucose goals reviewed, she will call the office if they are still high. Repeat TFTs today. Continue levothyroxine 50mcg daily for now, I will attempt to d/c this medication. Her previous workup was suggestive of the Graves disease which has a high chance of exacerbating in period. She didn't have clearly low thyroid function. Sx of hyperthyroidism reviewed. She wa sgiven lab order to repeat thyroid in 2 months. Labs today documented in this encounter Plan of Treatment Not on file documented as of this encounter Procedures Procedure Name Priority Date/Time Associated Diagnosis Comments THYROID PEROXIDASE ANTIBODY Routine 05/15/2019 9:52 AM EDT Hyperthyroidism THYROID STIMULATING IMMUNOGLOBULIN Routine 05/15/2019 9:52 AM EDT Hyperthyroidism TSH Routine 05/15/2019 9:52 AM EDT Hyperthyroidism T4, FREE Routine 05/15/2019 9:52 AM EDT Hyperthyroidism POCT GLYCOSYLATED HEMOGLOBIN (HGB A1C) Routine 05/15/2019 9:21 AM EDT Type 2 diabetes mellitus with hyperglycemia, without long-term current use of insulin POCT GLUCOSE FINGERSTICK Routine 05/15/2019 9:21 AM EDT Type 2 diabetes mellitus with hyperglycemia, without long-term current use of insulin documented in this encounter Results * TSH (07/04/2019 2:21 PM EST) TSH 0.985 0.270 - 4.200 uIU/mL 07/05/2019 3:06 AM EST [facility] Blood Venipuncture / Unknown 07/04/2019 2:21 PM EST 07/04/2019 2:21 PM EST us Martha Naik MD LAB BLOOD ORDERABLES Final Res ult [facility]
[address] [place] [address], * Thyroid Stimulating Immunoglobulin (05/15/2019 9:52 AM EDT) Thyroid Stimulating Immunoglobulin <0.10 0.00 - 0.55 IU/L 05/17/2019 5:07 PM EDT [facility] Blood Venipuncture / Unknown 05/15/2019 9:52 AM EDT 05/15/2019 9:53 AM EDT Narrative [facility] - 05/17/2019 5:07 PM EDT Performed at: ??01 - [address] ??[id number] Edge Cutting Machine Operator: Annamarie Irvin MD, Phone: ??[phone] us Martha Naik MD LAB BLOOD ORDERABLES Final Res ult Performing Organization Address [facility] Co de Phone Number [facility] [address] [place] [address], * Thyroid Peroxidase Antibody (05/15/2019 9:52 AM EDT) Thyroid Peroxidase Antibody 15 0 - 34 IU/mL 05/16/2019 9:09 AM EDT [facility] Blood Venipuncture / Unknown 05/15/2019 9:52 AM EDT 05/15/2019 9:53 AM EDT Narrative [facility] - 05/16/2019 9:09 AM EDT Performed at: ??01 - [facility] [address] [place] [address] ??[id number] Edge Cutting Machine Operator: Reg Singh PhD, Phone: ??[phone] us Martha Naik MD LAB BLOOD ORDERABLES Final Res ult Performing Organization Address City/[facility]/ZIP Co de Phone Number [facility] [address] [place] [address], * T4, Free (05/15/2019 9:52 AM EDT) Pathologist [facility] Free T4 0.94 0.93 - 1.70 ng/dL 05/15/2019 7:15 PM EDT [facility] Blood Venipuncture / Unknown 05/15/2019 9:52 AM EDT 05/15/2019 9:53 AM EDT Martha Naik MD LAB BLOOD ORDERABLES Final Res ult [facility]
[address] [place] [address], [place] [phone] * TSH (05/15/2019 9:52 AM EDT) [facility] TSH 2.100 0.270 - 4.200 uIU/mL 05/15/2019 7:15 PM EDT [facility] Blood Venipuncture / Unknown 05/15/2019 9:52 AM EDT 05/15/2019 9:53 AM EDT Martha Naik MD LAB BLOOD ORDERABLES Final Res ult Performing Organization Address [facility] Co de Phone Number [facility]
[address] [place] [address], [place] [phone] * POC Glycosylated Hemoglobin (Hb A1C) (05/15/2019 9:21 AM EDT) Pathologist [facility] Hemoglobin A1C 5.8 % [facility] Blood 05/15/2019 9:21 AM EDT Martha Naik MD POINT OF CARE TEST ORDERABLES Final Result Performing Organization Address City/[facility] Co de Phone Number [facility]
[address] [place] [address], [place] [phone] * (ABNORMAL) POC Glucose Fingerstick (05/15/2019 9:21 AM EDT) Glucose 229(A) 70 - 130 mg/dL [facility] Blood 05/15/2019 9:21 AM EDT us Martha Naik MD POINT OF CARE TEST ORDERABLES Final Result [facility]
[address] [place] [address], documented in this encounter Visit Diagnoses Diagnosis Type 2 diabetes mellitus with hyperglycemia, without long-term current use of insulin- Primary Polycystic ovaries Hyperthyroidism Thyrotoxicosis without mention of goiter or other cause, without mention of thyrotoxic crisis or storm documented in this encounter Care Teams Senior Telecommunications Technician Relationship Specialty Start Date End Date Maine Leblanc PA [address] [place] [address] PCP - General 09/25/15 03/05/21 documented as of this encounter
--- OUTSIDE RECORDS SUMMARY | 2024-06-26 16:07 | XMS_ITS | Encounter Summary ---
[facility] Address [address] [place] [address] Care Team Providers Care Vegetable Loader Machine Operator Name Role Phone Maine Leblanc Primary Care Provide r Reason for Visit * Reason Comments Follow-up problems with thyroi d during Palpitations Encounter Details Date Type Department Care Team (Late st Contact Info) Description 12/11/2018 11:30 AM EDT Office Visit [facility]CRINOLOG[facility] [address] [id number] Riccardo Driscoll PA-C [address] [address] Type 2 diabetes mellitus with hyperglycemia, without long-term current use of insulin (Primary Dx); 22 weeks gestation of ; Hyperthyroidism Social History Tobacco Use Types Packs/Day [...] Reading Time Taken Comments Blood Pressure 120/80 12/11/2018 11:22 AM EDT Pulse 74 12/11/2018 11:22 AM EDT Temperature - - Respiratory Rate - - Oxygen Saturation 99% 12/11/2018 11:22 AM EDT Inhaled Oxygen Concentration - - Weight 126 kg (278 lb) 12/11/2018 11:22 AM EDT Height - - Body Mass Index 42.27 11/10/2018 12:18 PM EDT documented in this encounter Progress Notes * Riccardo Driscoll PA-C - 12/11/2018 11:30 AM EDT Chief complaint Follow-up (problems with thyroid during ) and Palpitations Subjective Pat Murphy is a 28 y.o. female is here today for follow-up. Diabetes mellitus type 2 diagnosed 09/15/15. Reports having gestational DM with first ; took Glyburide during that time. Meds: prior to metformin ER 500 mg - 2 tablets bid with food. Her adult high school instructor DR Amato added insulin and she has [...] of . Thyroid levels were tested with cell biologist Cha Osorio and levels were normal off the medication. 22 weeks . Followed by OB and adult high school instructor. C/o recent intermittent palpitations, every few days, not every day. No tremor. PTU 50mg daily dc 07/2018, TSH 4 at the time. BS log reviewed- FBS 90s to 133, 2h pp readings varying from hypoglycemia in the 50s to 150s She admits she's having a hard time figuring out how many carbs to eat for the amount of insulin she's taking before meals. She's on humalog 18u AC TID Lantus 38U qhs Medications Current Outpatient Medications: ??? HUMALOG KWIKPEN 100 UNIT/ML solution pen-injector, , Disp: , Rfl: ??? LANTUS SOLOSTAR 100 UNIT/ML injection pen, , Disp: , Rfl: ??? MV-Min-Fe Fum-FA-DHA ( 1 PO), Take by mouth Daily., Disp: , Rfl: ??? vitamin D (ERGOCALCIFEROL) 83241 units capsule capsule, , Disp: , Rfl: PMH The following portions of the patient's history were reviewed and updated as appropriate: allergies, current medications, past family history, past medical history, past social history, past surgicalhistory and problem list. Review of systems Review of Systems Constitutional: Positive for fatigue. All other systems reviewed and are negative. Physical exam Objective Blood pressure 120/80, pulse 74, weight 126 kg (278 lb), last menstrual period 07/10/2018, SpO2 99 [...] reviewed. LABS AND IMAGING Office Visit on 12/11/2018 Component Date Value Ref Range Status ??? Glucose 12/11/2018 130 70 - 130 mg/dL Final ??? Hemoglobin A1C 12/11/2018 4.9 % Final NM THYROID UPTAKE AND SCAN [...] POC Glycosylated Hemoglobin (Hb A1C) (Completed) Hyperthyroidism Relevant Orders TSH T4, Free T3, Free Other Plan A1C is 4.9 today, glucometer reviewed. Glucose goals reviewed. Increase Lantus to 38u qhs. Discussed with pt the option of insulin dosing based on how many grams of carbs she's eating. she'swilling to try this. Insulin to carb ratio 1:5 grams She is sending weekly bs readings to adult high school instructor. Repeat TFTs today. Discussed goal is to maintain normal FT3 and FT4 in while using the least amount of anti-thyroid medication possible or none if possible. Her palpitations are not daily at this time and she wanted to wait on lab results for propranolol rx for sx management. F/u with me in 2 months, has f/u with Dr. Grajeda 04/2019. She is also managed by Dr Amato and Cha Osorio closely. * Martha Grajeda MD - 12/11/2018 11:30 AM EDT I have reviewed the notes, assessments, and/or procedures performed by Riccardo Driscoll PA-C, I concur with her/his documentation of Pat Murphy documented in this encounter Plan of Treatment Not on file documented as of this encounter Procedures Procedure Name Priority Date/Time Associated Diagnosis Comments T3, FREE Routine 12/11/2018 11:49 AM EDT Hyperthyroidism TSH Routine 12/11/2018 11:49 AM EDT Hyperthyroidism T4, FREE Routine 12/11/2018 11:49 AM EDT Hyperthyroidism POCT GLYCOSYLATED HEMOGLOBIN (HGB A1C) Routine 12/11/2018 11:30 AM EDT Type 2 diabetes mellitus with hyperglycemia, without long-term current use of insulin POCT GLUCOSE FINGERSTICK Routine 12/11/2018 11:30 AM EDT Type 2 diabetes mellitus with hyperglycemia, without long-term current use of insulin documented in this encounter Results * T3, Free (12/11/2018 11:49 AM EDT) Pathologist [facility] T3, Free 2.91 2.00 - 4.40 pg/mL 12/11/2018 10:53 PM EDT [facility] Blood Venipuncture / Unknown 12/11/2018 11:49 AM EDT 12/11/2018 11:49 AM EDT Temitopedrduane Herreraezevic PA-C LAB BLOOD ORDERABLES Final Result [facility]
[address] [place] [address], * (ABNORMAL) T4, Free (12/11/2018 11:49 AM EDT) Pathologist [facility] Free T4 0.88(L) 0.93 - 1.70 ng/dL 12/11/2018 10:53 PM EDT [facility] Blood Venipuncture / Unknown 12/11/2018 11:49 AM EDT 12/11/2018 11:49 AM EDT Riccardo Herreraezevic PA-C LAB BLOOD ORDERABLES Final Result Performing Organization Address [facility]/ZIP Co de Phone Number [facility]
[address] [place] [address], * TSH (12/11/2018 11:49 AM EDT) [facility] TSH 2.770 0.270 - 4.200 mIU/mL 12/11/2018 10:53 PM EDT [facility] Blood Venipuncture / Unknown 12/11/2018 11:49 AM EDT 12/11/2018 11:49 AM EDT Temitopedrana Knezevic PA-C LAB BLOOD ORDERABLES Final Result Performing Organization Address City/[facility]/ZIP Co de Phone Number [facility]
[address] [place] [address], * POC Glycosylated Hemoglobin (Hb A1C) (12/11/2018 11:30 AM EDT) Hemoglobin A1C 4.9 % [facility] Blood 12/11/2018 11:3 0 AM EDT Temitopeperfecto Mayeric PA-C POINT OF CARE TEST ORDERAB LES Final Result [facility]
[address] [id number], [place] [phone] * POC Glucose Fingerstick (12/11/2018 11:30 AM EDT) Glucose 130 70 - 130 mg/dL [facility] Blood 12/11/2018 11:3 0 AM EDT Temitopeperfecto Mayeric PA-C POINT OF CARE TEST ORDERAB LES Final Result Performing Organization Address City/[facility]/ZIP Co de Phone Number [facility]
[address] [place] [address], documented in this encounter Visit Diagnoses Diagnosis Type 2 diabetes mellitus with hyperglycemia, without long-term current use of insulin- Primary 22 weeks gestation of Hyperthyroidism Thyrotoxicosis without mention of goiter or other cause, without mention of thyrotoxic crisis or storm documented in this encounter Care Teams Vegetable Loader Machine Operator Relationship Specialty Start Date End Date Maine Leblanc PA [address] [place] [address] PCP - General 09/25/15 03/05/21 documented as of this encounter
--- OUTSIDE RECORDS SUMMARY | 2024-06-26 16:07 | XMS_ITS | Encounter Summary ---
Author Organization [facility] ystem Address [address] [place] [address] Care Team Providers Care Bag Grader Name Role Phone Maine Leblanc Primary Care Provide r Reason for Visit * Reason Comments URI Encounter Details Date Type Department Care Team (Late st Contact Info) Description 07/06/2019 6:00 PM EST Office Visit [facility] [address] [place] [address] Flu-like symptoms (Primary Dx); Acute otitis media, bilateral Social History Tobacco Use Types Packs/Day Years [...] Sign Reading Time Taken Comments Blood Pressure 102/70 07/06/2019 6:23 PM EST Pulse 101 07/06/2019 6:23 PM EST Temperature 37.3 ??C (99.1 ??F) 07/06/2019 6:23 PM ES T Respiratory Rate 20 07/06/2019 6:23 PM EST Oxygen Saturation 98% 07/06/2019 6:23 PM EST Inhaled Oxygen Concentration - - Weight 132 kg (292 lb) 07/06/2019 6:23 PM EST Height 172.7 cm (5' 8 ) 07/06/2019 6:23 PM EST Body Mass Index 44.4 07/06/2019 6:23 PM EST documented in this encounter Patient Instructions * Patient Instructions* Alicia Sarmiento, PLANT ANATOMIST - 07/06/2019 6:00 PM EST Images from the original note were not included. Diabetes Mellitus and Sick Day Management Blood sugar (glucose) can be difficult to control when you are sick. Common illnesses that can cause problems for people with diabetes (diabetes mellitus) include colds, fever, flu (influenza), nausea, vomiting, and diarrhea. These illnesses can cause stress and loss of body fluids (dehydration), and those issues can cause blood glucose levels to increase. Because of this, it is very important totake your insulin and diabetes medicines and eat some form of carbohydrate when you are sick. You should make a plan for days when you are sick (sick day plan) as part of your diabetes management plan. You and your health care provider should make this plan in advance. The following guidelines are intended to help you manage an illness that lasts for about 24 hours or less. Your health careprovider may also give you more specific instructions. What do I need to do to manage my blood glucose? Check your blood glucose every 2-4 hours, or as often as told by your health care provider. Know your sick day treatment goals. Your target blood glucose levels may be different when you are sick. If you use insulin, take your usual dose. If your blood glucose continues to be too high, you may need to take an additional insulin dose as told by your health care provider. If you use oral diabetes medicine, you may need to stop taking it if you are not able to eat or drink normally. Ask your health care provider about whether you need to stop taking these medicines while you are sick. If you use injectable hormone medicines other than insulin to control your diabetes, ask your health care provider about whether you need to stop taking these medicines while you are sick. What else can I do to manage my diabetes when I am sick? Check your ketones If you have type 1 diabetes, check your urine ketones every 4 hours. If you have type 2 diabetes, check your urine ketones as often as told by your health care provider. Drink fluids Drink enough fluid to keep your urine clear or pale yellow. This is especially important if you have a fever, vomiting, or diarrhea. Those symptoms can lead to dehydration. Follow any instructions from your health care provider about beverages to avoid. Do not drink alcohol, caffeine, or drinks that contain a lot of sugar. Take medicines as directed Sace-aqwx-tvn-counter and prescription medicines only as told by your health care provider. Check medicine labels for added sugars. Some medicines may contain sugar or types of sugars that can raise your blood glucose level. What foods can I eat when I am sick? You need to eat some form of carbohydrates when you are sick. You should eat 45- 50 grams (45-50 g) of carbohydrates every 3-4 hours until you feel better. All of the food choices below contain about 15 g of carbohydrates. Plan ahead and keep some of these foods around so you have them if you get sick. 4-6 oz (120-177 mL) carbonated beverage that contains sugar, such as regular (not diet) soda. You may be able to drink carbonated beverages more easily if you open the beverage and let it sit at roomtemperature for a few minutes before drinking. ?? of a twin frozen ice pop. 4 oz (120 g) regular gelatin. 4 oz (120 mL) fruit juice. 4 oz (120 g) ice cream or frozen yogurt. 2 oz (60 g) sherbet. 8 oz (240 mL) clear broth or soup. 4 oz (120 g) regular custard. 4 oz (120 g) regular pudding. 8 oz (240 g) plain yogurt. 1 slice bread or toast. 6 saltine crackers. 5 vanilla wafers. Questions to ask your health care provider Consider asking the following questions so you know what to do on days when you are sick: Should I adjust my diabetes medicines? How often do I need to check my blood glucose? What supplies do I need to manage my diabetes at home when I am sick? What number can I call if I have questions? What foods and drinks should I avoid? Contact a health care provider if: You develop symptoms of diabetic ketoacidosis, such as: Fatigue. Weight loss. Excessive thirst. Light-headedness. Fruity or sweet-smelling breath. Excessive urination. Vision changes. Confusion or irritability. Nausea. Vomiting. Rapid breathing. Pain in the abdomen. Feeling flushed. You are unable to drink fluids without vomiting. You have any of the following for more than 6 hours: Nausea. Vomiting. Diarrhea. Your blood glucose is at or above 240 mg/dL (13.3 mmol/L), even after you take an additional insulin dose. You have a change in how you think, feel, or act (mental status). You develop another serious illness. You have been sick or have had a fever for 2 days or longer and you are not getting better. Get help right away if: Your blood glucose is lower than 54 mg/dL (3.0 mmol/L). You have difficulty breathing. You have moderate or high ketone levels in your urine. You used emergency glucagon to treat low blood glucose. Summary Blood sugar (glucose) can be difficult to control when you are sick. Common illnesses that can cause problems for people with diabetes (diabetes mellitus) include colds, fever, flu (influenza), nausea, vomiting, and diarrhea. Illnesses can cause stress and loss of body fluids (dehydration), and those issues can cause blood glucose levels to increase. Make a plan for days when you are sick (sick day plan) as part of your diabetes management plan. You and your health care provider should make this plan in advance. It is very important to take your insulin and diabetes medicines and to eat some form of carbohydrate when you are sick. Contact your health care provider if have problems managing your blood glucose levels when you are sick, or if you have been sick or had a fever for 2 days or longer and are not getting better. This information is not intended to replace advice given to you by your health care provider. Make sure you discuss any questions you have with your health care provider. Document Released: 07/13/2004 Document Revised: 04/08/2017 Document Reviewed: 04/08/2017 [employer] Interactive Patient Education ?? 2019 [employer]. Pharyngitis Pharyngitis is a sore throat (pharynx). This is when there is redness, pain, and swelling in your throat. Most of the time, this condition gets better on its own. In some cases, you may need medicine. Follow these instructions at home: Take izuy-lrm-dlnsjyn and prescription medicines only as told by your doctor. If you were prescribed an antibiotic medicine, take it as told by your doctor. Do not stop taking the antibiotic even if you start to feel better. Do not give children aspirin. Aspirin has been linked to Vandana syndrome. Drink enough water and fluids to keep your pee (urine) clear or pale yellow. Get a lot of rest. Rinse your mouth (gargle) with a salt-water mixture 3-4 times a day or as needed. To make a salt-water mixture, completely dissolve ??-1 tsp of salt in 1 cup of warm water. If your doctor approves, you may use throat lozenges or sprays to soothe your throat. Contact a doctor if: You have large, tender lumps in your neck. You have a rash. You cough up green, yellow-brown, or bloody spit. Get help right away if: You have a stiff neck. You drool or cannot swallow liquids. You cannot drink or take medicines without throwing up. You have very bad pain that does not go away with medicine. You have problems breathing, and it is not from a stuffy nose. You have new pain and swelling in your knees, ankles, wrists, or elbows. Summary Pharyngitis is a sore throat (pharynx). This is when there is redness, pain, and swelling in your throat. If you were prescribed an antibiotic medicine, take it as told by your doctor. Do not stop taking the antibiotic even if you start to feel better. Most of the time, pharyngitis gets better on its own. Sometimes, you may need medicine. This information is not intended to replace advice given to you by your health care provider. Make sure you discuss any questions you have with your health care provider. Document Released: 12/27/2008 Document Revised: 08/16/2017 Document Reviewed: 08/16/2017 [employer] Interactive Patient Education ?? 2019 [employer] Otitis Media, Adult Otitis media means that the middle ear is red and swollen (inflamed) and full of fluid. The condition usually goes away on its own. Follow these instructions at home: ?? Take nivm-tie-wrnlaxb and prescription medicines only as told by your doctor. ?? If you were prescribed an antibiotic medicine, take it as told by your doctor. Do not stop taking the antibiotic even if you start to feel better. ?? Keep all follow-up visits as told by your doctor. This is important. Contact a doctor if: ?? You have bleeding from your nose. ?? There is a lump on your neck. ?? You are not getting better in 5 days. ?? You feel worse instead of better. Get help right away if: ?? You have pain that is not helped with medicine. ?? You have swelling, redness, or pain around your ear. ?? You get a stiff neck. ?? You cannot move part of your face (paralyzed). ?? You notice that the bone behind your ear hurts when you touch it. ?? You get a very bad headache. Summary ?? Otitis media means that the middle ear is red, swollen, and full of fluid. ?? This condition usually goes away on its own. In some cases, treatment may be needed. ?? If you were prescribed an antibiotic medicine, take it as told by your doctor. This information is not intended to replace advice given to you by your health care provider. Make sure you discuss any questions you have with your health care provider. Document Released: 12/27/2008 Document Revised: 08/01/2017 Document Reviewed: 08/01/2017 [employer] Interactive Patient Education ?? 2019 [employer]. documented in this encounter Progress Notes * Alicia Sarmiento APRN - 07/06/2019 6:00 PM EST Subjective URI Pat Murphy is a 29 y.o. diabetic female who presents with request to repeat flu test. She hasc/o sore throat, nasal congestion, headache, nausea and fever. Fever and symptoms are worsening, improved with ibuprofen. She has new born at home and expresses anxiety regarding her current illness and potential diagnosis. URI This is a new problem. Episode onset: 48-72 hours started with cough then sudden onset other symptoms. The problem has been gradually worsening. The maximum temperature recorded prior to her arrival was 101 - 101.9 F. Associated symptoms include congestion, coughing, ear pain, headaches, nausea, a plugged ear sensation, rhinorrhea, sneezing and a sore throat. Pertinent negatives include no abdominal pain, chest pain, diarrhea, dysuria, neck pain, rash, sinus pain, vomiting or wheezing. She has tried decongestant, antihistamine, acetaminophen and NSAIDs for the symptoms. The treatment providedmild relief. History Obtained from: Patient Past Medical History: Diagnosis Date ??? Constipation ??? Cystitis, interstitial ??? Fatigue ??? History of gestational diabetes mellitus ??? History of ovarian cyst ??? Joint pain diffuse joint pain ??? Polycystic ovary syndrome ??? Type 2 diabetes mellitus (CMS/HCC) Past Surgical History: Procedure Laterality Date ??? MOUTH SURGERY Social History Tobacco Use ??? Smoking status: Former Smoker Packs/day: 0.50 Types: Cigarettes ??? Smokeless tobacco: Never Used Substance Use Topics ??? Alcohol use: No ??? Drug use: No Family History Problem Relation Age of Onset ??? Hypertension Mother ??? Diabetes Father ??? Hypertension Father ??? Hypertension Maternal Grandmother ??? Hypertension Maternal Grandfather ??? Diabetes Paternal Grandmother ??? Hypertension Paternal Grandmother ??? Diabetes Paternal Grandfather ??? Hypertension Paternal Grandfather ??? Obesity Other ??? Mental illness Other ??? Hyperlipidemia Other ??? Kidney disease Other Kidney transplanted Allergies Allergen Reactions ??? Ciprofloxacin Hives ??? Sulfa Antibiotics Hives Current Outpatient Medications Medication Sig Dispense Refill ??? glyburide (DIAbeta) 5 MG tablet 1 PO Daily 30 tablet 6 ??? ibuprofen (ADVIL,MOTRIN) 800 MG tablet Take 1 tablet by mouth Every 8 (Eight) Hours As Needed for Mild Pain . 90 tablet 0 ??? metFORMIN ER (GLUCOPHAGE-XR) 500 MG 24 hr tablet 2 PO BID with Food 120 tablet 5 ??? promethazine-dextromethorphan (PROMETHAZINE-DM) 6.25-15 MG/5ML syrup Take 5 mL by mouth 4 (Four) Times a Day As Needed for Cough for up to 10 days. 240 mL 0 ??? pseudoephedrine (SUDAFED) 120 MG 12 hr tablet Take 1 tablet by mouth Every 12 (Twelve) Hours for 10 days. 20 tablet 0 ??? amoxicillin (AMOXIL) 875 MG tablet Take 1 tablet by mouth 2 (Two) Times a Day. 20 tablet 0 ??? levothyroxine (SYNTHROID, LEVOTHROID) 25 MCG tablet Take 1 tablet by mouth Daily. 90 tablet 1 No current facility-administered medications for this visit. The following portions of the patient's history were reviewed and updated as appropriate: allergies, current medications, past family history, past medical history, past social history and past surgical history. Review of Systems Constitutional: Positive for chills, fatigue and fever. HENT: Positive for congestion, ear pain, postnasal drip, rhinorrhea, sneezing, sore throat, troubleswallowing and voice change. Negative for ear discharge, hearing loss, sinus pressure and sinus pain. Eyes: Negative. Respiratory: Positive for cough. Negative for shortness of breath and wheezing. Cardiovascular: Positive for palpitations. Negative for chest pain. Gastrointestinal: Positive for nausea. Negative for abdominal pain, diarrhea and vomiting. Genitourinary: Negative for dysuria, frequency and urgency. Musculoskeletal: Positive for myalgias. Negative for back pain, neck pain and neck stiffness. Skin: Negative for rash and wound. Allergic/Immunologic: Negative for immunocompromised state. Neurological: Positive for light-headedness and headaches. Hematological: Negative. Psychiatric/Behavioral: Positive for sleep disturbance. Objective VITAL SIGNS: Vitals: 07/06/19 1823 BP: 102/70 Pulse: 101 Resp: 20 Temp: 99.1 ??F (37.3 ??C) SpO2: 98% Weight: 132 kg (292 lb) Height: 172.7 cm (68 ) PainSc: 2 PainLoc: Throat Body mass index is 44.4 kg/m??. Physical Exam Constitutional: She is cooperative. Non-toxic appearance. She appears ill. No distress. HENT: Head: Atraumatic. Right Ear: External ear and ear canal normal. Tympanic membrane is erythematous and bulging. Tympanic membrane is not perforated. Left Ear: External ear and ear canal normal. Tympanic membrane is erythematous and bulging. Tympanic membrane is not perforated. Nose: Mucosal edema and rhinorrhea present. Mouth/Throat: Uvula is midline and mucous membranes are normal. Uvula swelling present. Posterior oropharyngeal erythema present. No oropharyngeal exudate or posterior oropharyngeal edema. Tonsils are 1+ on the right. Tonsils are 1+ on the left. No tonsillar exudate. Eyes: Pupils are equal, round, and reactive to light. No scleral icterus. Neck: Normal range of motion and phonation normal. Neck supple. No tracheal deviation present. Cardiovascular: Regular rhythm. Tachycardia present. No murmur heard. Pulmonary/Chest: Effort normal. She has no decreased breath sounds. She has no wheezes. She has no rhonchi. She has no rales. Abdominal: Hernia: amoxicillin. Lymphadenopathy: Head (right side): Tonsillar adenopathy present. Head (left side): Tonsillar adenopathy present. Right: No supraclavicular adenopathy present. Left: No supraclavicular adenopathy present. Neurological: She is alert. Skin: Skin is warm and dry. Capillary refill takes less than 2 seconds. No cyanosis. Psychiatric: Her behavior is normal. She is attentive. LABS: Results for orders placed or performed in visit on 07/06/19 POCT Influenza A/B Result Value Ref Range Rapid Influenza A Ag Negative Negative Rapid Influenza B Ag Negative Negative Internal Control Passed Passed Lot Number [id number] Expiration Date 01/12 POCT rapid strep A Result Value Ref Range Rapid Strep A Screen Negative Negative, VALID, INVALID, Not Performed Internal Control Passed Passed Lot Number [id number] Expiration Date 09/14 Assessment/Plan Pat was seen today for uri. Diagnoses and all orders for this visit: Flu-like symptoms - POCT Influenza A/B - POCT rapid strep A Acute otitis media, bilateral Other orders - amoxicillin (AMOXIL) 875 MG tablet; Take 1 tablet by mouth 2 (Two) Times a Day. PLAN: Continue OTC pain/fever relievers. Increase po intake decaffeinated fluids. Diabetic Sick dayprotocol discussed. Patient should follow up with primary care provider if symptoms fail to improve, worsen or for the development of new symptoms that need attention. The patient voiced understanding and agreement to the patient treatment plan and instructions Alicia Sarmiento APRN documented in this encounter Plan of Treatment Not on file documented as of this encounter Procedures Procedure Name Priority Date/Time Associated Diagnosis Comments POCT INFLUENZA A/B Routine 07/06/2019 7: 44 PM EST Flu-like symptoms POCT RAPID STREP A Routine 07/06/2019 7: 44 PM EST Flu-like symptoms documented in this encounter Results * POCT rapid strep A (07/06/2019 7:44 PM EST) Pathologist [facility] Rapid Strep A Screen Negative Negative, VALID, INVALID, Not Performed [facility] Internal Control Passed Passed [facility] Lot Number [id number] [facility] Expiration Date 09/14 [facility] Swab 07/06/2019 7:44 PM EST Alicia K Sarmiento PLANT ANATOMIST POINT OF CARE TEST ORDERABLE S Final Result Performing Organization Address City/[facility]/ZIP Co de Phone Number [facility]
[address] [id number], [place] [phone] * POCT Influenza A/B (07/06/2019 7:44 PM EST) Rapid Influenza A Ag Negative Negative [facility] Rapid Influenza B Ag Negative Negative [facility] Internal Control Passed Passed [facility] Lot Number [id number] [facility] Expiration Date 01/12 [facility] Swab 07/06/2019 7:44 PM EST Alicia K Sarmiento PLANT ANATOMIST POINT OF CARE TEST ORDERABLE S Final Result Performing Organization Address City/[facility] Co de Phone Number [facility]
[address] [id number], [place] [phone] documented in this encounter Visit Diagnoses Diagnosis Flu-like symptoms- Primary Acute otitis media, bilateral Unspecified otitis media documented in this encounter Care Teams Bag Grader Relationship Specialty Start Date End Date Maine Leblanc PA [address] [place] [address] PCP - General 09/25/15 03/05/21 documented as of this encounter
--- OUTSIDE RECORDS SUMMARY | 2024-06-26 16:07 | XMS_ITS | Encounter Summary ---
[facility] Address [address] [place] [address] Care Team Providers Care Clerk Of Superior Court Name Role Phone Maine Leblanc Primary Care Provide r Encounter Details Date Type Department Care Team (Late st Contact Info) Description 11/10/2018 Telephone [facility] [address] [place] [address] Maine Leblanc PA [facility] [place] [address] Social History Tobacco Use Types Packs/Day Years [...] Telephone Encounter - Janessa Davenport MA - 11/16/2018 3:18 PM EDT Noted. I will mail out a copy to patient * Telephone Encounter - Martha Leary MD - 11/16/2018 2:27 PM EDT I corrected it * Telephone Encounter - Janessa Davenport MA - 11/14/2018 11:04 AM EDT I printed out July summary, it does not state it. I printed our October, it states different DX. Ihave places copy of both in yellow folder. I believe it may have been wrong dx code entered. * Telephone Encounter - Martha Leary MD - 11/13/2018 4:46 PM EDT I am not sure where this came from. I do not have CKD in my note. * Telephone Encounter - Janessa Davenport MA - 11/10/2018 4:29 PM EDT Please see patient message * Telephone Encounter - Kamini Vegas - 11/10/2018 2:07 PM EDT PATIENT STATES THAT ON HER AVS IT MENTION THAT SHE HAD BEEN DIAGNOSED WITH CHRONIC KIDNEY DISEASE AND SHE WAS TRYING TO SEE WHAT THIS WAS ABOUT DUE TO DR LEARY NOT MENTIONING THIS TO HER AT THE APPT. * Telephone Encounter - Zane Vila RegSched Rep - 11/10/2018 1:00 PM EDT PATIENT CALLED REGARDING A STATEMENT ON HER AVS. PLEASE RETURN CALL AND ADVISE. documented in this encounter Plan of Treatment Not on file documented as of this encounter Visit Diagnoses Not on filedocumented in this encounter Care Teams Clerk Of Superior Court Relationship Specialty Start Date End Date Maine Leblanc PA [address] [place] [address] PCP - General 09/25/15 03/05/21 documented as of this encounter
--- OUTSIDE RECORDS SUMMARY | 2024-06-26 16:07 | XMS_ITS | Encounter Summary ---
[facility] Address [address] [place] [address] Care Team Providers Care Cubing Machine Tender Name Role Phone Maine Leblanc Primary Care Provide r Encounter Details Date Type Department Care Team (Late st Contact Info) Description 02/01/2020 Telephone [facility] [address] [place] [id number] Martha Grajeda MD [address] [place] [address] Social History Tobacco Use Types Packs/Day Years [...] Telephone Encounter - Janessa Davenport MA - 02/01/2020 2:45 PM EDT Patient notified of results * Telephone Encounter - Janessa Davenport MA - 02/01/2020 2:45 PM EDT ----- Message from Martha Naik MD sent at 01/31/2020 3:51 PM EDT ----- Patient and notify her that I received her lab results from primary doctor. A1c level is 8.6 and indicative of uncontrolled diabetes. Please ask her if glucose levels improved after she increased herinsulin. Cholesterol panel showed normal profile. Kidney function and electrolytes, liver enzymes are normal. Thyroid function is within the normal limits and blood counts were fine documented in this encounter Plan of Treatment Not on file documented as of this encounter Visit Diagnoses Not on filedocumented in this encounter Care Teams Cubing Machine Tender Relationship Specialty Start Date End Date Maine Leblanc PA [address] [place] [id number] PCP - General 09/25/15 03/05/21 documented as of this encounter
--- OUTSIDE RECORDS SUMMARY | 2024-06-26 16:08 | XMS_ITS | Encounter Summary ---
[facility] Address [address] [place] [address] Care Team Providers Care Almond Sorter Name Role Phone Maine Leblanc Primary Care Provide r Encounter Details Date Type Department Care Team (Late st Contact Info) Description 04/21/2017 Telephone [facility] ENDOCRINOLOGY [address] [facility] [address] [place] [address] Ruth Sommer MA Social History Tobacco Use Types Packs/Day Years Used Date Smoking Tobacco: Every Day Cigarettes Alcohol Use Standard Drinks/Week Comments No 0 (1 standard drink = 0.6 oz pur e alcohol) Comments Unknown Sex and Gender Information Value Date Recorded Sex Assigned at Not on file Legal Sex Female 12:43 PM EDT Gender Identity Not on file Sexual Orientation Not on file documented as of this encounter Miscellaneous Notes * Telephone Encounter - Ruth Sommer MA - 04/21/2017 4:18 PM EDT Pt was informed of results and expressed understanding. I informed pt that I would call her with a date and time of scan once scheduled * Telephone Encounter - Ruth Sommer MA - 04/21/2017 4:17 PM EDT ----- Message from Martha Naik MD sent at 04/21/2017 10:12 AM EDT ----- Please call the patient regarding her lab results. Repeat thyroid levels showed high thyroid function. Thyroid ab are negative, some of the tests are still pending. Calcium level has normalized. In order to understand why your function is abnormal I would like to schedule a thyroid scan that will help to diagnose overactive thyroid vs thyroiditis (transient condition). PLease ask patient is thereis a chance that she is now. if she is not then I would complete evaluation and treat thyroid function before family planning. I will order uptake and scan, it can only be done if test is negative. I have ordered thetest and she can do it on the morning of scheduled scan. I will schedule appointment in a couple weeks to discuss results and treatment. documented in this encounter Plan of Treatment Not on file documented as of this encounter Visit Diagnoses Not on filedocumented in this encounter Care Teams Almond Sorter Relationship Specialty Start Date End Date Maine Leblanc PA [address] [place], [place] [id number] PCP - General 09/25/15 03/05/21 documented as of this encounter
--- OUTSIDE RECORDS SUMMARY | 2024-06-26 16:08 | XMS_ITS | Encounter Summary ---
[facility] Address [address] [place] [address] Care Team Providers Care School Administrator Name Role Phone Maine Leblanc Primary Care Provide r Encounter Details Date Type Department Care Team (Late st Contact Info) Description 04/21/2017 Telephone [facility] INTERNAL MEDICINE [facility] [place] [address] Martha Grajeda MD [address] [place] [address] Social History Tobacco Use Types Packs/Day Years [...] Encounter - Ruth Sommer MA - 04/21/2017 4:19 PM EDT Returned pt's call and results were given to pt * Telephone Encounter - Amanda Galeana - 04/21/2017 2:51 PM EDT PT WOULD LIKE YOU TO CALL HER WHEN HER LABS RESULTS ARE BACK. documented in this encounter Plan of Treatment Not on file documented as of this encounter Visit Diagnoses Not on filedocumented in this encounter Care Teams School Administrator Relationship Specialty Start Date End Date Maine Leblanc PA [address] [place], [place] [id number] PCP - General 09/25/15 03/05/21 documented as of this encounter
--- OUTSIDE RECORDS SUMMARY | 2024-06-26 16:08 | XMS_ITS | Encounter Summary ---
[facility] [address] [place] [address] Care Team Providers Care Set Off Press Operator Name Role Phone Maine Leblanc Primary Care Provide r Reason for Visit * Reason Comments Hyperthyroidism F/u for hyperthyroid ism and type 2 diabetes. Testing blood sugars 2x qd. Would like to discuss results of recent thyroid labs Diabetes Encounter Details Date Type Department Care Team (Late st Contact Info) Description 05/06/2017 11:30 AM EDT Office Visit [facility] ENDOCRINOLOGY [address] [place] [address] Martha Grajeda MD [address] [place] [address] Type 2 diabetes mellitus without complication, unspecified continuous churn buttermaker insulin use status (CMS/[facility]) (Primary Dx); Polycystic ovaries; Morbid obesity; Hyperthyroidism Social History Tobacco Use Types Packs/Day [...] Sign Reading Time Taken Comments Blood Pressure 130/80 05/06/2017 11:14 AM EDT Pulse 68 05/06/2017 11:14 AM EDT Temperature - - Respiratory Rate - - Oxygen Saturation 98% 05/06/2017 11:14 AM EDT Inhaled Oxygen Concentration - - Weight 125 kg (276 lb 6.4 oz) 05/06/2017 11:14 A M EDT Height 172.7 cm (5' 8 ) 05/06/2017 11:14 AM EDT Body Mass Index 42.03 05/06/2017 11:14 AM EDT documented in this encounter Progress Notes * Martha Grajeda MD - 05/06/2017 11:30 AM EDT Chief complaint Hyperthyroidism (F/u for hyperthyroidism and type 2 diabetes. Testing blood sugars 2x qd. Would like to discuss results of recent thyroid labs) and Diabetes Subjective Pat Murphy is a 27 y.o. female is here today for follow-up. Hyperthyroidism Associated symptoms include abdominal pain (intermittent sharp abdominal pains. ). Pertinent negatives include no arthralgias, chest pain, congestion, fatigue, headaches, joint swelling, myalgias, nausea, numbness or rash. Diabetes She presents for her follow-up diabetic visit. She has type 2 diabetes mellitus. Pertinent negatives for hypoglycemia include no headaches. Pertinent negatives for diabetes include no chest pain, no fatigue, no polydipsia and no polyuria. Diabetes mellitus type 2 diagnosed 09/15/15 Reports having gestational DM with first ; took Glyburide during that time. Meds: metformin ER 500 mg - 2 tablets bid with food. Monitoring - daily, since she started carb counting and following the diet her glucose improved. Glucometer reviewed and data is 92 -120. Occasionally 140. Exercised regularly and walks. Past meds: Took Januvia 100 mg for about a month, discontinued due to low BS. Glyburide during . Last visit in March 2017 she was diagnosed with hyperthyroidism TSH was < 0.004 and free T4 of 1.63. TSI antibodies were positive at 486. she underwent thyroid uptake and scan 04/29/2017 which showed normal thyroid uptake of 36%. Heterogenous uptake in the right inferior thyroid, otherwise normal thyroid scan She reported mild shakiness and palpitations intermittently, doesn't have withdraw bleeding after provera tabs. No insomnia or other c/o. Active problems: PCOS - dx 2006 Morbid Obesity - working on diet and exercise program. She takes Vitamin D 50 000 IU weekly. Medications Current Outpatient Prescriptions: ??? escitalopram (LEXAPRO) 10 MG tablet, , Disp: , Rfl: ??? LATUDA 60 MG tablet, , Disp: , Rfl: ??? medroxyPROGESTERone (PROVERA) 10 MG tablet, Take 10 mg by mouth Daily., Disp: , Rfl: ??? metFORMIN ER (GLUCOPHAGE-XR) 500 MG 24 hr tablet, 2 tablets bid with food, Disp: 120 tablet, Rfl: 11 ??? ONETOUCH DELICA LANCETS 33G misc, 1 strip daily. Once per day, Disp: 100 each, Rfl: 11 ??? ONETOUCH VERIO test strip, 1 each by Other route 5 (Five) Times a Day. Use as instructed, Disp:200 each, Rfl: 5 ??? traZODone (DESYREL) 50 MG tablet, , Disp: , Rfl: ??? vitamin D (ERGOCALCIFEROL) 64165 UNITS capsule capsule, , Disp: , Rfl: PMH The following portions of the patient's history were reviewed and updated as appropriate: allergies, current medications, past family history, past medical history, past social history, past surgicalhistory and problem list. Review of systems Review of Systems Constitutional: Negative for fatigue. HENT: Negative for congestion. Eyes: Negative for visual disturbance. Respiratory: Negative for shortness of breath. Cardiovascular: Positive for palpitations (intermittent fluttering sensation. ). Negative for chestpain and leg swelling. Gastrointestinal: Positive for abdominal pain (intermittent sharp abdominal pains. ) and diarrhea. Negative for constipation and nausea. Endocrine: Positive for heat intolerance (increased sweating). Negative for cold intolerance, polydipsia and polyuria. Genitourinary: Irregular menses, taking [...] are negative. Physical exam Objective Blood pressure 130/80, pulse 68, height 68 (172.7 cm), weight 276 lb 6.4 oz (125 kg), SpO2 98 %, not currently . Physical [...] note and vitals reviewed. LABS AND IMAGING Lab on 04/18/2017 Component Date Value Ref Range Status ??? Glucose 04/18/2017 225* 70 - 100 mg/dL Final ??? BUN 04/18/2017 10 9 - 23 mg/dL Final ??? Creatinine 04/18/2017 0.70 0.60 - 1.30 mg/dL Final ??? Sodium 04/18/2017 139 132 - 146 mmol/L Final ??? Potassium 04/18/2017 4.5 3.5 - 5.5 mmol/L Final ??? Chloride 04/18/2017 106 99 - 109 mmol/L Final ??? CO2 04/18/2017 27.0 20.0 - 31.0 mmol/L Final ??? Calcium 04/18/2017 9.1 8.7 - 10.4 mg/dL Final ??? Total Protein 04/18/2017 6.4 5.7 - 8.2 g/dL Final ??? Albumin 04/18/2017 4.00 3.20 - 4.80 g/dL Final ??? ALT (SGPT) 04/18/2017 36 7 - 40 U/L Final ??? AST (SGOT) 04/18/2017 23 0 - 33 U/L Final ??? Alkaline Phosphatase 04/18/2017 68 25 - 100 U/L Final ??? Total Bilirubin 04/18/2017 0.2* 0.3 - 1.2 mg/dL Final ? ? eGFR Non Amer 04/18/2017 99 >60 mL/min/1.73 Final ??? Globulin 04/18/2017 2.4 gm/dL Final ??? A/G Ratio 04/18/2017 1.7 1.5 - 2.5 g/dL Final ??? BUN/Creatinine Ratio 04/18/2017 14.3 7.0 - 25.0 Final ??? Anion Gap 04/18/2017 6.0 3.0 - 11.0 mmol/L Final ? ? TSH 04/18/2017 <0.004* 0.350 - 5.350 mIU/mL Final ??? Free T4 04/18/2017 1.63 0.89 - 1.76 ng/dL Final ??? Thyroid Stimulating Immunoglobulin 04/18/2017 486* 0 - 139 % Final ??? Thyroid Peroxidase Antibody 04/18/2017 18 0 - 34 IU/mL Final Office Visit on 04/08/2017 Component Date Value Ref Range Status ??? Glucose 04/08/2017 140* 70 - 130 mg/dL Final ??? Hemoglobin A1C 04/08/2017 6.0 % Final ? ? TSH 04/08/2017 <0.004* 0.350 - 5.350 mIU/mL Final ??? Glucose 04/08/2017 112* 70 - 100 mg/dL Final ??? BUN 04/08/2017 16 9 - 23 mg/dL Final ??? Creatinine 04/08/2017 0.70 0.60 - 1.30 mg/dL Final ??? Sodium 04/08/2017 139 132 - 146 mmol/L Final ??? Potassium 04/08/2017 4.6 3.5 - 5.5 mmol/L Final ??? Chloride 04/08/2017 107 99 - 109 mmol/L Final ??? CO2 04/08/2017 30.0 20.0 - 31.0 mmol/L Final ??? Calcium 04/08/2017 11.3* 8.7 - 10.4 mg/dL Final ??? Total Protein 04/08/2017 6.8 5.7 - 8.2 g/dL Final ??? Albumin 04/08/2017 4.20 3.20 - 4.80 g/dL Final ??? ALT (SGPT) 04/08/2017 39 7 - 40 U/L Final ??? AST (SGOT) 04/08/2017 27 0 - 33 U/L Final ??? Alkaline Phosphatase 04/08/2017 76 25 - 100 U/L Final ??? Total Bilirubin 04/08/2017 0.5 0.3 - 1.2 mg/dL Final ? ? eGFR Non Amer 04/08/2017 99 >60 mL/min/1.73 Final ??? Globulin 04/08/2017 2.6 gm/dL Final ??? A/G Ratio 04/08/2017 1.6 1.5 - 2.5 g/dL Final ??? BUN/Creatinine Ratio 04/08/2017 22.9 7.0 - 25.0 Final ??? Anion Gap 04/08/2017 2.0* 3.0 - 11.0 mmol/L Final NM THYROID UPTAKE AND SCAN 04/28/2017 IMPRESSION: 1. Four hour and 24-hour thyroid uptake appear within normal limits. 36% at 24 hours. 2. Slightly heterogeneous uptake pattern in the inferior right thyroid lobe, otherwise normal appearing thyroid scan. Assessment Assessment/Plan Problem List Items Addressed This Visit Digestive Morbid obesity Endocrine Diabetes mellitus - Primary Polycystic ovaries Hyperthyroidism Plan Hyperthyroidism likely secondary to Graves' disease. Her TSI ab are elevated, the scan is showing high/normal uptake, suggestive against thyroiditis as etiology of her hyperthyroidism. The nature of thyroid disease and different treatment options, including radioactive iodine therapy, antithyroid medications or surgery were discussed with the patient. AT this time she appears asymptomatic. I would like to repeat TFT and decide regarding the need of therapy. If therapy indicated then PTU would be an acceptable choice considering her family planning intentions. I have reviewe din details the sx of hyperthyroidism and she will call if those occur. Glucose goals reviewed. Continue metformin 1000 mg daily, meds refilled. Cont with carb consistent diet and exercise, the importance of lifestyle modifications revisited. Follow-up in 4 months. Monitor TFT every 2-3 months. documented in this encounter Plan of Treatment Not on file documented as of this encounter Procedures Procedure Name Priority Date/Time Associated Diagnosis Comments HCG, SERUM, QUALITATIVE Routine 05/06/2017 11:59 AM EDT Hyperthyroidism TSH Routine 05/06/2017 11:59 AM EDT Hyperthyroidism T4, FREE Routine 05/06/2017 11:59 AM EDT Hyperthyroidism documented in this encounter Results * (ABNORMAL) TSH (05/06/2017 11:59 AM EDT) TSH <0.004(L) 0.350 - 5.350 mIU/mL 05/06/2017 7:39 PM EDT [facility] Blood Venipuncture / Unknown 05/06/2017 11:59 AM EDT 05/06/2017 11:59 AM EDT [facility] LABORATORY - 05/06/2017 7:39 PM EDT Due to abnormal TSH results, suggest ordering Free T4. us Martha Naik MD LAB BLOOD ORDERABLES Final Res ult Performing Organization Address [facility]/ZIP Co de Phone Number [facility]
[address] [place] [address], * hCG, Serum, Qualitative (05/06/2017 11:59 AM EDT) Pathologist [facility] HCG Qualitative Negative Negative <6 mIU/mL 05/08/2017 8:10 AM EDT [facility] Blood Venipuncture / Unknown 05/06/2017 11:59 AM EDT 05/06/2017 11:59 AM EDT [facility] - 05/08/2017 8:10 AM EDT Performed at: ??01 - [facility] [address], [place], [place] ??[id number] Roadside Mechanic: Reg Singh PhD, Phone: ??[phone] us Martha Naik MD LAB BLOOD ORDERABLES Final Res ult [facility] [address] [place] [address], [place] [phone] * T4, Free (05/06/2017 11:59 AM EDT) Free T4 1.67 0.89 - 1.76 ng/dL 05/06/2017 7:39 PM EDT [facility] Blood Venipuncture / Unknown 05/06/2017 11:59 AM EDT 05/06/2017 11:59 AM EDT us Martha Naik MD LAB BLOOD ORDERABLES Final Res ult [facility]
[address] [place] [address], documented in this encounter Visit Diagnoses Diagnosis Type 2 diabetes mellitus without complication, unspecified half-way insulin use status- Primary Polycystic ovaries Morbid obesity Hyperthyroidism Thyrotoxicosis without mention of goiter or other cause, without mention of thyrotoxic crisis or storm documented in this encounter Care Teams Set Off Press Operator Relationship Specialty Start Date End Date Maine Leblanc PA [address] [place] [address] PCP - General 09/25/15 03/05/21 documented as of this encounter
--- OUTSIDE RECORDS SUMMARY | 2024-06-26 16:08 | XMS_ITS | Encounter Summary ---
[facility] Address [address] [place] [address] Care Team Providers Care Pig Machine Supervisor Name Role Phone Maine Leblanc Primary Care Provide r Encounter Details Date Type Department Care Team ([facility] st Contact Info) Description 04/19/2017 Telephone [facility] INTERNAL MEDICINE [address] [place] [address] Martha Grajeda MD [address] [address] Social History Tobacco Use Types Packs/Day Years [...] encounter Miscellaneous Notes * Telephone Encounter - Sherine Stewart - 04/19/2017 10:23 AM EDT Pt returned your call please call [phone] documented in this encounter Plan of Treatment Not on file documented as of this encounter Visit Diagnoses Not on filedocumented in this encounter Care Teams Pig Machine Supervisor Relationship Specialty Start Date End Date Maine Leblanc PA [address] [place], [place] [id number] PCP - General 09/25/15 03/05/21 documented as of this encounter
--- OUTSIDE RECORDS SUMMARY | 2024-06-26 16:08 | XMS_ITS | Encounter Summary ---
Author Organization [facility] Address [address] [place] [address] Care Team Providers Care Director Of Scientific Research Name Role Phone Maine Leblanc Primary Care Provide r Encounter Details Date Type Department Care Team (Late st Contact Info) Description 04/26/2017 Telephone [facility] ENDOCRINOLOGY [address] [facility] [address] [place] [address] Ruth Sommer MA Social History [...] Telephone Encounter - Ruth Sommer MA - 04/26/2017 11:55 AM EDT Pt was informed of the WBS dates and times as well as the prep instructions. Pt verbalized understanding * Telephone Encounter - Ruth Sommer MA - 04/26/2017 11:54 AM EDT ----- Message from Martha Naik MD sent at 04/25/2017 11:42 PM EDT ----- Please call the patient regarding her lab results. Thyroid stimulating antibodies are positive, which makes autoimmune overactive thyroid disease very likely. Did she have her scan scheduled yet? I would like to schedule a visit next week to discuss treatment. It would be best if scan is scheduled before that. Otherwise - we can talk about treatment options anyway. Please ask if she can come and schedule May 05 at 9:15 am documented in this encounter Plan of Treatment Not on file documented as of this encounter Visit Diagnoses Not on filedocumented in this encounter Care Teams Director Of Scientific Research Relationship Specialty Start Date End Date Maine Leblanc PA [address] [place] [address] PCP - General 09/25/15 03/05/21 documented as of this encounter
--- OUTSIDE RECORDS SUMMARY | 2024-06-26 16:08 | XMS_ITS | Encounter Summary ---
[facility] Address [address] [place] [address] Care Team Providers Care Claim Rep Name Role Phone Maine Leblanc Primary Care Provide r Encounter Details Date Type Department Care Team (Late st Contact Info) Description 05/12/2017 Telephone [facility] ENDOCRINOLOGY [address] [facility] [address] [place] [address] Ruth Sommer MA Social History [...] Telephone Encounter - Ruth Sommer MA - 05/12/2017 3:01 PM EDT Pt informed of results and verbalized understanding. Rx has been sent to pharmacy * Telephone Encounter - Ruth Sommer MA - 05/12/2017 3:00 PM EDT ----- Message from Martha Naik MD sent at 05/12/2017 1:37 PM EDT ----- Please call the patient regarding her lab results. Your test is negative. Thyroid function is elevated and slightly higher compared to previous blood test. We can try a low dose of antithyroid medication to see if your symptoms are improved. (she has sx of mild shakiness and palpitations,please ask if they are getting worse). Start PTU (propylthiouracil) 25 mg once a day (1/2 tab daily). Repeat labs in 4 weeks. I left standing orders documented in this encounter Plan of Treatment Not on file documented as of this encounter Visit Diagnoses Not on filedocumented in this encounter Care Teams Claim Rep Relationship Specialty Start Date End Date Maien Leblanc PA [address] [place] [address] PCP - General 09/25/15 03/05/21 documented as of this encounter
--- OUTSIDE RECORDS SUMMARY | 2024-06-26 16:08 | XMS_ITS | Encounter Summary ---
[facility] Address [address] [place] [address] Care Team Providers Care Federal Mediation Commissioner Name Role Phone Maine Leblanc Primary Care Provide r Encounter Details Date Type Department Care Team (Latest Contact Info) Description 10/27/2015 8:18 AM EDT - 10/27/2015 11:59 PM EDT Hospital Encounter [facility] DEPARTMENT [address] [place] [id number] Bing Wallace, BOAT PAINTER [address] [place] [address] Discharge Disposition: Home or Self Care Social History Tobacco Use Types Packs/Day Years Used Date Smoking Tobacco: Never Assessed Comments Unknown Sex and Gender Information Value Date Recorded Sex Assigned at Not on file Legal Sex Female 12:43 PM EDT Gender Identity Not on file Sexual Orientation Not on file documented as of this encounter Medications at Time of Discharge ARIPiprazole (ABILIFY) 2 MG tablet Take by mouth daily. 10/27/2015 04/01/2016 Glucose Blood (ONETOUCH VERIO IQ ) Inject 1 strip under the skin daily. 10/27/2015 04/08/2017 metFORMIN XR (GLUCOPHAGE-XR) 500 MG 24 hr tablet Take 500 mg by mouth 2 (two) times a day. 10/27/2015 04/01/2016 ONETOUCH DELICA LANCETS 33G misc 1 strip daily. Once per day 10/27/2015 04/01/2016 prazosin (MINIPRESS) 1 MG capsule Take 1 tablet by mouth. 10/27/2015 10/01/2016 prazosin (MINIPRESS) 5 MG capsule Take 1 tablet by mouth. 10/27/2015 10/01/2016 sertraline (ZOLOFT) 100 MG tablet Take by mouth. 10/27/2015 10/01/2016 documented as of this encounter Plan of Treatment Not on file documented as of this encounter Procedures Procedure Name Priority Date/Time Associated Diagnosis Comments COMPREHENSIVE METABOLIC PANEL Routine 10/27/2015 10:03 AM EDT documented in this encounter Results * (ABNORMAL) Comprehensive metabolic panel (10/27/2015 10:03 AM EDT) Glucose 142(H) 70 - 100 mg/dL LABORATORY BUN 11 9 - 23 mg/dL LABORATORY Creatinine 0.6 0.6 - 1.3 mg/dL LABORATORY Sodium 140 132 - 146 mmol/L LABORATORY Potassium 4.8 3.5 - 5.5 mmol/L LABORATORY Chloride 106 99 - 109 mmol/L LABORATORY CO2 33(H) 20 - 31 mmol/L LABORATORY Calcium 9.2 8.7 - 10.4 mg/dL LABORATORY Alkaline Phosphatase 98 25 - 100 Units/L LABORATORY AST (SGOT) 22 0 - 33 Units/L LABORATORY ALT (SGPT) 39 7 - 40 Units/L LABORATORY Total Bilirubin 0.2(L) 0.3 - 1.2 mg/dL LABORATORY Total Protein 7.3 5.7 - 8.2 g/dL LABORATORY Albumin 4.2 3.2 - 4.8 g/dL LABORATORY eGFR 126 ml/min/1.7 32 LABORATORY Comment: ?? National Kid[employer] Guidelines ?Stage ? Description ?GFR ?1 ?Normal or High ? 90+ ?2 ?Mild decrease ? 60-89 ?3 ?Moderate decrease ?30-59 ?4 ?Severe decrease ?15-29 ?5 ?Kidney failure ?<15 Anion Gap 1(L) 3 - 11 mmol/L LABORATORY Blood specimen (specimen) 10/27/2015 10:03 AM EDT 10/27/2015 10:37 AM EDT Narrative LABORATORY - 10/27/2015 3:28 PM EDT Specimen Type : Blood us No Known Provider LAB BLOOD ORDERABLES Final Res ult LABORATORY
[address] [place] [address], documented in this encounter Visit Diagnoses Not on filedocumented in this encounter Care Teams Federal Mediation Commissioner Relationship Specialty Start Date End Date Maine Leblanc PA [address] [place] [address] PCP - General 09/25/15 03/05/21 documented as of this encounter
--- OUTSIDE RECORDS SUMMARY | 2024-06-26 16:08 | XMS_ITS | Encounter Summary ---
[facility] Address [address] [place] [address] Care Team Providers Care Seaming Machine Operator Name Role Phone Maine Leblanc Primary Care Provide r Reason for Visit * Reason Comments Diabetes F/u for type 2 diabe zulema, testing 1x qd. 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 (CMS/HCC) Social History Tobacco Use Types Packs/Day Years [...] Sign Reading Time Taken Comments Blood Pressure 126/78 10/01/2016 7:59 AM EST Pulse 76 10/01/2016 7:59 AM EST Temperature - - Respiratory Rate - - Oxygen Saturation 98% 10/01/2016 7:59 AM EST Inhaled Oxygen Concentration - - Weight 125 kg (276 lb 3.2 oz) 10/01/2016 7:59 AM EST Height 172.7 cm (5' 8 ) 10/01/2016 7:59 AM EST Body Mass Index 42 10/01/2016 7:59 AM EST documented in this encounter Patient Instructions * Patient Instructions* Martah Grajeda MD - 10/01/2016 8:00 AM EST Results for orders placed or performed in visit on 10/01/16 POC Glucose Fingerstick Result Value Ref Range Glucose 157 (A) 70 - 130 mg/dL POC Glycosylated Hemoglobin (Hb A1C) Result Value Ref Range Hemoglobin A1C 6.2 % documented in this encounter Progress Notes * Martha Grajeda MD - 10/01/2016 8:00 AM EST Chief complaint Diabetes (F/u for type 2 diabetes, testing 1x qd. Pt stated blood sugars are averaging around 145) Subjective Pat Murphy is a 26 y.o. female is here today for follow-up. Diabetes She presents for her follow-up diabetic visit. She has type 2 diabetes mellitus. Pertinent negatives for hypoglycemia include no headaches. Pertinent negatives for diabetes include no chest pain, no fatigue, no polydipsia and no polyuria. Diabetes mellitus type 2 diagnosed 09/15/15 complications: Meds: metformin ER 500 mg - 2 tablets bid with food Monitoring - daily, since she started carb counting and following the diet her glucose improved. Glucometer reviewed and data is 92 -140. Exercised regularly and walks. Past meds: Reports having had gestational DM with first ; took Glyburide during that time. Took Januvia 100 mg for about a month, discontinued due to low BS Active problems: PCOS - dx 2006 Morbid Obesity - working on diet and exercise program. Had labs at her primary doctor last week: CMP. She takes Vitamin D 50 000 IU weekly. She is planning another child and asked about medication changes, goals of A1C. Medications Current Outpatient Prescriptions: ??? medroxyPROGESTERone (PROVERA) 10 MG tablet, Take 10 mg by mouth Daily., Disp: , Rfl: ??? Glucose Blood (ONETOUCH VERIO IQ ), Inject 1 strip under the skin daily., Disp: , Rfl: ??? metFORMIN XR (GLUCOPHAGE-XR) 500 MG 24 hr tablet, 2 tablets bid with food, Disp: 120 tablet, Rfl: 5 ??? ONETOUCH DELICA LANCETS 33G misc, 1 strip daily. Once per day, Disp: 100 each, Rfl: 11 ??? ONETOUCH VERIO test strip, Uses daily, Disp: 50 each, Rfl: 11 ??? vitamin D (ERGOCALCIFEROL) 71519 UNITS capsule capsule, , Disp: , Rfl: [...] Respiratory: Negative for shortness of breath. Cardiovascular: Negative. Negative for chest pain and leg swelling. Gastrointestinal: Positive for abdominal pain (intermittent sharp abdominal pains. ) and diarrhea. Negative for constipation and nausea. Endocrine: Negative. Negative for cold intolerance, polydipsia and polyuria. [...] are negative. Physical exam Objective Blood pressure 126/78, pulse 76, height 68 (172.7 cm), weight 276 lb 3.2 oz (125 kg), SpO2 98 %, not [...] time. Skin: Skin is warm and dry. Psychiatric: She has a normal mood and affect. Her behavior is normal. Judgment and thought contentnormal. Nursing note and vitals reviewed. LABS AND IMAGING Office Visit on 10/01/2016 Component Date Value Ref Range Status ??? Glucose 10/01/2016 157* 70 - 130 mg/dL Final ??? Hemoglobin A1C 10/01/2016 6.2 % Final Assessment Assessment/Plan Problem List Items Addressed This Visit None Visit Diagnoses Controlled type 2 diabetes mellitus without complication, unspecified fci insulin use status - Primary Relevant Orders POC Glucose Fingerstick (Completed) POC Glycosylated Hemoglobin (Hb A1C) (Completed) Plan Glucose goals reviewed. Continue metformin 1000 mg daily, meds refilled. Cont with carb consistent diet and exercise, the importance of lifestyle modifications revisited. Follow-up in 6 months. Most likely she will stay on metformin through the . documented in this encounter Plan of Treatment Not on file documented as of this encounter Procedures Procedure Name Priority Date/Time Associated Diagnosis Comments POCT GLYCOSYLATED HEMOGLOBIN (HGB A1C) Routine 10/01/2016 8:09 AM EST Controlled type 2 diabetes mellitus without complication, unspecified fci insulin use status (CMS/HCC) POCT GLUCOSE FINGERSTICK Routine 10/01/2016 8:09 AM EST Controlled type 2 diabetes mellitus without complication, unspecified fci insulin use status (CMS/HCC) documented in this encounter Results * POC Glycosylated Hemoglobin (Hb A1C) (10/01/2016 8:09 AM EST) Hemoglobin A1C 6.2 % [facility] Blood 10/01/2016 8:09 AM EST us Martha Naik MD POINT OF CARE TEST ORDERABLES Final Result [facility]
[address] [place] [address], [place] [phone] * (ABNORMAL) POC Glucose Fingerstick (10/01/2016 8:09 AM EST) Glucose 157(A) 70 - 130 mg/dL [facility] Blood 10/01/2016 8:09 AM EST us Martha Naik MD POINT OF CARE TEST ORDERABLES Final Result [facility]
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
--- OUTSIDE RECORDS SUMMARY | 2024-06-26 16:08 | XMS_ITS | Encounter Summary ---
[facility] Address [address] [place] [address] Care Team Providers Care Rn Informatics Name Role Phone Maine Leblanc Primary Care Provide r Encounter Details Date Type Department Care Team (Late st Contact Info) Description 09/16/2017 Telephone [facility] ENDOCRINOLOGY [address] [facility] [address] [place] [address] Ruth Sommer MA Social History [...] Telephone Encounter - Ruth Sommer MA - 09/16/2017 2:42 PM EST Results note printed and mailed to pt * Telephone Encounter - Ruth Sommer MA - 09/16/2017 2:41 PM EST ----- Message from Martha Naik MD sent at 09/16/2017 1:41 PM EST ----- Please call the patient regarding her lab results. THyroid levels are normal now. Continue same dose PTU and f/u as scheduled. documented in this encounter Plan of Treatment Not on file documented as of this encounter Visit Diagnoses Not on filedocumented in this encounter Care Teams Rn Informatics Relationship Specialty Start Date End Date Maine Leblanc PA [address] [place] [address] PCP - General 09/25/15 03/05/21 documented as of this encounter
--- OUTSIDE RECORDS SUMMARY | 2024-06-26 16:08 | XMS_ITS | Encounter Summary ---
[facility] Address [address] [place] [address] Care Team Providers Care Ecclesiastical Worker Name Role Phone Maine Leblanc Primary Care Provide r Encounter Details Date Type Department Care Team ([facility] st Contact Info) Description 07/12/2017 9:15 AM EST Lab [facility] INTERNAL MEDICINE [address] [place] [address] Hyperthyroidism Social History Tobacco Use [...] Priority Date/Time Associated Diagnosis Comments TSH Routine 07/12/2017 9:17 AM EST Hyperthyroidism T4, FREE Routine 07/12/2017 9:17 AM EST Hyperthyroidism documented in this encounter Results * (ABNORMAL) TSH (07/12/2017 9:17 AM EST) TSH <0.004(L) 0.350 - 5.350 mIU/mL 07/12/2017 1:07 PM EST [facility] Blood Venipuncture / Unknown 07/12/2017 9:17 AM EST 07/12/2017 9:17 AM EST Narrative [facility] - 07/12/2017 1:07 PM EST Due to abnormal TSH results, suggest ordering Free T4. us Martha Naik MD LAB BLOOD ORDERABLES Final Res ult Performing Organization Address [facility] Co de Phone Number [facility]
[address] [place] [address], * T4, Free (07/12/2017 9:17 AM EST) Free T4 1.25 0.89 - 1.76 ng/dL 07/12/2017 1:07 PM EST [facility] Blood Venipuncture / Unknown 07/12/2017 9:17 AM EST 07/12/2017 9:17 AM EST us Martha Naik MD LAB BLOOD ORDERABLES Final Res ult Performing Organization Address [facility] de Phone Number [facility]
[address] [place] [address], documented in this encounter Visit Diagnoses Diagnosis Hyperthyroidism Thyrotoxicosis without mention of goiter or other cause, without mention of thyrotoxic crisis or storm documented in this encounter Care Teams Ecclesiastical Worker Relationship Specialty Start Date End Date Maine Leblanc PA [address] [place] [address] PCP - General 09/25/15 03/05/21 documented as of this encounter
--- OUTSIDE RECORDS SUMMARY | 2024-06-26 16:08 | XMS_ITS | Encounter Summary ---
[facility] Address [address] [place] [address] Care Team Providers Care Building Superintendent Name Role Phone Maine Leblanc Primary Care Provide r Encounter Details Date Type Department Care Team (Late st Contact Info) Description 09/07/2016 Telephone [facility] ENDOCR[facility]OLOGY [address] [facility] [address] [place] [address] Ruth Sommer MA Social History [...] Telephone Encounter - Ruth Sommer MA - 09/07/2016 12:16 PM EST Pt was informed and said that she will continue to take the Rx as prescribed and will let us know if she does start to experience any symptoms such as diarrhea or bloating. * Telephone Encounter - Ruth Sommer MA - 09/07/2016 12:16 PM EST ----- Message from Martha Naik MD sent at 09/07/2016 11:38 AM EST ----- It is better to keep the same dose as it is helping her to achieve weight loss and kepp sugars regulated. The only reason to cut in half if she experiences some symptoms (diarrhea or bloating) ----- Message ----- From: Ruth Sommer MA Sent: 09/07/2016 8:25 AM To: Martha Naik MD ----- Message ----- From: Kamini [place] Sent: 09/06/2016 2:20 PM To: Ruth Sommer MA PATIENT IS ON A CARB DIET AND SHE IS STATING THAT HER SUGAR IS SOMETIMES AT 114 AND OTHERS 145 AND SHE WAS WONDERING IF SHE SHOULD STAY ON THE 1000 MG FOR METFORMIN OR SHOULD SHE CUT THAT IN HALF? THE PATIENT'S CALL BACK NUMBER IS [phone] documented in this encounter Plan of Treatment Not on file documented as of this encounter Visit Diagnoses Not on filedocumented in this encounter Care Teams Building Superintendent Relationship Specialty Start Date End Date Maine Leblanc PA [address] [place] [address] PCP - General 09/25/15 03/05/21 documented as of this encounter
--- OUTSIDE RECORDS SUMMARY | 2024-06-26 16:08 | XMS_ITS | Encounter Summary ---
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 Bacterial Conjunctivitis Bacterial conjunctivitis, commonly called pink eye, is an inflammation of the clear membrane that covers the white part of the eye (conjunctiva). The inflammation can also happen on the underside of the eyelids. The blood vessels in the conjunctiva become inflamed, causing the eye to become red or pink. Bacterial conjunctivitis may spread easily from one eye to another and from person to person (contagious). CAUSES Bacterial conjunctivitis is caused by bacteria. The bacteria may come from your own skin, your upper respiratory tract, or from someone else with bacterial conjunctivitis. SYMPTOMS The normally white color of the eye or the underside of the eyelid is usually pink or red. The pinkeye is usually associated with irritation, tearing, and some sensitivity to light. Bacterial conjunctivitis is often associated with a thick, yellowish discharge from the eye. The discharge may turn into a crust on the eyelids overnight, which causes your eyelids to stick together. If a discharge is present, there may also be some blurred vision in the affected eye. DIAGNOSIS Bacterial conjunctivitis is diagnosed by your caregiver through an eye exam and the symptoms that you report. Your caregiver looks for changes in the surface tissues of your eyes, which may point to the specific type of conjunctivitis. A sample of any discharge may be collected on a cotton-tip swabif you have a severe case of conjunctivitis, if your cornea is affected, or if you keep getting repeat infections that do not respond to treatment. The sample will be sent to a lab to see if the inflammation is caused by a bacterial infection and to see if the infection will respond to antibiotic medicines. TREATMENT ?? Bacterial conjunctivitis is treated with antibiotics. Antibiotic eyedrops are most often used. However, antibiotic ointments are also available. Antibiotics pills are sometimes used. Artificial tears or eye washes may ease discomfort. HOME CARE INSTRUCTIONS ?? To ease discomfort, apply a cool, clean washcloth to your eye for 10-20 minutes, 3-4 times a day. ?? Gently wipe away any drainage from your eye with a warm, wet washcloth or a cotton ball. ?? Wash your hands often with soap and water. Use paper towels to dry your hands. ?? Do not share towels or washcloths. This may spread the infection. ?? Change or wash your pillowcase every day. ?? You should not use eye makeup until the infection is gone. ?? Do not operate machinery or drive if your vision is blurred. ?? Stop using contact lenses. Ask your caregiver how to sterilize or replace your contacts before using them again. This depends on the type of contact lenses that you use. ?? When applying medicine to the infected eye, do not touch the edge of your eyelid with the eyedrop bottle or ointment tube. SEEK IMMEDIATE MEDICAL CARE IF: ?? Your infection has not improved within 3 days after beginning treatment. ?? You had yellow discharge from your eye and it returns. ?? You have increased eye pain. ?? Your eye redness is spreading. ?? Your vision becomes blurred. ?? You have a fever or persistent symptoms for more than 2-3 days. ?? You have a fever and your symptoms suddenly get worse. ?? You have facial pain, redness, or swelling. MAKE SURE YOU: ?? Understand these instructions. ?? Will watch your condition. ?? Will get help right away if you are not doing well or get worse. This information is not intended to replace advice given to you by your health care provider. Make sure you discuss any questions you have with your health care provider. Document Released: 07/11/2006 Document Revised: 08/01/2015 Document Reviewed: 12/11/2012 [employer] Patient Education ??2016 [employer]. documented in this encounter Progress Notes * Rigo Simon APRN - 05/15/2016 11:38 AM EDT Subjective Pat Murphy is a 26 y.o. female. Conjunctivitis The current episode started yesterday. The problem occurs rarely. The problem has been gradually worsening. The problem is moderate. Nothing relieves the symptoms. Nothing aggravates the symptoms. Associated symptoms include eye itching, photophobia, eye discharge and eye redness (right). Pertinentnegatives include no eye pain. The following portions of the patient's history were reviewed and updated as appropriate: allergies, current medications, past medical history, past social history, past surgical history and problem list. Review of Systems Constitutional: Negative. HENT: Negative. Eyes: Positive for photophobia, discharge, redness (right) and itching. Negative for pain. Skin: Negative. Visit Vitals ??? Ht 68 (172.7 cm) ??? Wt 285 lb (129 kg) ??? LMP 05/08/2016 ??? BMI 43.33 kg/m2 Objective Physical Exam Constitutional: She is oriented to person, place, and time. She appears well- developed and well-nourished. No distress. HENT: Head: Normocephalic. Eyes: EOM are normal. Pupils are equal, round, and reactive to light. Right eye exhibits discharge (clear discharge). Left eye exhibits no discharge. Neurological: She is alert and oriented to person, place, and time. Psychiatric: She has a normal mood and affect. Her behavior is normal. Thought content normal. Vitals reviewed. Assessment/Plan Pat was seen today for conjunctivitis. Diagnoses and all orders for this visit: Berthold eye disease of right eye - gentamicin (GARAMYCIN) 0.3 % ophthalmic solution; Administer 2 drops to the right eye 3 (Three) Times a Day for 5 days. documented in this encounter Plan of Treatment Not on file documented as of this encounter Visit Diagnoses Diagnosis Berthold eye disease of right eye- Primary documented in this encounter Care Teams Window Air Conditioner Installer Relationship Specialty Start Date End Date Maine Leblanc PA [address] [place] [address] PCP - General 09/25/15 03/05/21 documented as of this encounter
--- OUTSIDE RECORDS SUMMARY | 2024-06-26 16:08 | XMS_ITS | Encounter Summary ---
[facility] Address [address] [place] [address] Care Team Providers Care Beauty Operator Apprentice Name Role Phone Maine Leblanc Primary Care Provide r Encounter Details Date Type Department Care Team (Late st Contact Info) Description 08/01/2017 Telephone [facility] END[facility]CR[facility] [address] [facility] [address] [place] [address] Janessa Davenport MA Social History Tobacco Use Types Packs/Day [...] Telephone Encounter - Janessa Davenport MA - 08/01/2017 4:32 PM EST Patient call stating her blood sugars were above 300 -350 and was experiencing shaking and not feeling very well. E- scripted [facility] Per Dr. Kumar Rivers Until she see Dr. Grajeda and is to call with BS readings or any reactions. documented in this encounter Plan of Treatment Not on file documented as of this encounter Visit Diagnoses Not on filedocumented in this encounter Care Teams Beauty Operator Apprentice Relationship Specialty Start Date End Date Maine Leblanc PA [address] [place] [address] PCP - General 09/25/15 03/05/21 documented as of this encounter
--- OUTSIDE RECORDS SUMMARY | 2024-06-26 16:08 | XMS_ITS | Encounter Summary ---
[facility] Address [address] [place] [address] Care Team Providers Care Credit Processor Name Role Phone Maine Leblanc Primary Care Provide r Encounter Details Date Type Department Care Team (Late st Contact Info) Description 11/16/2017 Telephone [facility] INTERNAL MEDICINE [address] [place] [phone] Martha Leary MD [address] [place] [address] Social History Tobacco Use Types Packs/Day Years [...] Telephone Encounter - Ruth Sommer MA - 11/16/2017 10:29 AM EDT Pt was informed of results and verbalized understanding * Telephone Encounter - Andrae Hill - 11/16/2017 8:17 AM EDT PT CALLED IN REQUESTING TO LEAVE A MESSAGE WITH DR. LEARY OR NICHOL REAL. THE PT STATES SHE RECENTLY HAD LAB WORK FINISHED AND WAS WANTING TO SEE IF RESULTS WERE BACK AND IF ANYTHING WAS NEEDED TO GO OVER IN REGARDS. BEST CALL BACK # [phone] documented in this encounter Plan of Treatment Not on file documented as of this encounter Visit Diagnoses Not on filedocumented in this encounter Care Teams Credit Processor Relationship Specialty Start Date End Date Maine Leblanc PA [address] [place] [address] PCP - General 09/25/15 03/05/21 documented as of this encounter
--- OUTSIDE RECORDS SUMMARY | 2024-06-26 16:08 | XMS_ITS | Encounter Summary ---
[facility] Address [address] [place] [address] Care Team Providers Care Assault Boat Coxswain Name Role Phone Maine Leblanc Primary Care Provide r Encounter Details Date Type Department Care Team (Late st Contact Info) Description 07/13/2017 Telephone [facility] ENDOCRINOLOGY [address] [facility] [address] [place] [address] Ruth Sommer MA Social History [...] Telephone Encounter - Ruth Sommer MA - 07/13/2017 11:31 AM EST Pt was informed of results and verbalized understanding. Pt stated that she did increase her PTU dosage to 1 tab bid but is still having some shakiness. Lab order has been entered into pt's chart for her to have completed in 4-6 weeks * Telephone Encounter - Ruth Sommer MA - 07/13/2017 11:31 AM EST ----- Message from Martha Naik MD sent at 07/13/2017 7:35 AM EST ----- Please call the patient regarding her lab results. THyroid function improved, but still elevated. She needs to continue PTU same dose. After last visit in April I have asked you to advise pt to increase PTU dose to 25 mg BID (1 tab BID) did she increase it? Please ask and document in chart the dose she is taking. Ask if she still has sx of palpitations or shakiness. Continue with monitoring levels and repeat labs in 4-6 weeks(make sure free T4 and TSH ordered, I thought I put standing orders) * Telephone Encounter - Ruth Sommer MA - 07/13/2017 11:12 AM EST Called to inform pt of results, no answer. Left message requesting for her to return my call. * Telephone Encounter - Ruth Sommer MA - 07/13/2017 11:12 AM EST ----- Message from Martha Naik MD sent at 07/13/2017 7:35 AM EST ----- Please call the patient regarding her lab results. THyroid function improved, but still elevated. She needs to continue PTU same dose. After last visit in April I have asked you to advise pt to increase PTU dose to 25 mg BID (1 tab BID) did she increase it? Please ask and document in chart the dose she is taking. Ask if she still has sx of palpitations or shakiness. Continue with monitoring levels and repeat labs in 4-6 weeks(make sure free T4 and TSH ordered, I thought I put standing orders) documented in this encounter Plan of Treatment Not on file documented as of this encounter Results * T4, Free (03/22/2018 12:09 PM EDT) Free T4 1.01 0.89 - 1.76 ng/dL 03/22/2018 4:29 PM EDT [facility] Blood Venipuncture / Unknown 03/22/2018 12:09 PM EDT 03/22/2018 12:09 PM EDT Martha Naik MD LAB BLOOD ORDERABLES Final Res ult Performing Organization Address City/[facility]/ZIP Co de Phone Number [facility]
[address] [place] [address], * TSH (03/22/2018 12:09 PM EDT) TSH 1.257 0.350 - 5.350 mIU/mL 03/22/2018 4:29 PM EDT [facility] Blood Venipuncture / Unknown 03/22/2018 12:09 PM EDT 03/22/2018 12:09 PM EDT us Martha Naik MD LAB BLOOD ORDERABLES Final Res ult Performing Organization Address [facility] Co de Phone Number [facility]
[address] [place] [address], documented in this encounter Visit Diagnoses Diagnosis Hyperthyroidism- Primary Thyrotoxicosis without mention of goiter or other cause, without mention of thyrotoxic crisis or storm documented in this encounter Care Teams Assault Boat Coxswain Relationship Specialty Start Date End Date Maine Leblanc PA [address] [place] [address] PCP - General 09/25/15 03/05/21 documented as of this encounter
--- OUTSIDE RECORDS SUMMARY | 2024-06-26 16:08 | XMS_ITS | Encounter Summary ---
[facility] [address] [place] [address] Care Team Providers Care Zigzag Topstitcher Name Role Phone Maine Leblanc Primary Care Provide r Reason for Visit * Diagnostic Imaging (Routine) - Closed Specialty Diagnoses / Procedures Referred By Contac t Referred To Contact Radiology Diagnoses Hyperthyroidism Procedures NM Thyroid Uptake & Scan Martha Grajeda MD [address] [place] [address] Phone: tel: fax: Referral ID Status Reason Start Date Expiration Date Visits Re quested Visits Authorized [id number] Closed 04/21/2017 04/21/2018 1 1 Encounter Details Date Type Department Care Team (Late st Contact Info) Description 04/29/2017 8:37 AM EDT - 04/29/2017 11:59 PM EDT Hospital Encounter [facility] NUCLEAR MEDICINE [address] [place] [phone] Martha Grajeda MD [address] [place] [address] Discharge Disposition: Home or Self Care Social [...] this encounter Medications at Time of Discharge escitalopram (LEXAPRO) 10 MG tablet 03/06/2017 9 LATUDA 60 MG tablet 03/13/201703/22 8 medroxyPROGESTERone (PROVERA) 10 MG tablet Take 10 mg by mouth Daily. 8 metFORMIN ER (GLUCOPHAGE-XR) 500 MG 24 hr tabletIndications:T ype 2 diabetes mellitus without complication, unspecified custodial insulin use status 2 tablets bid with food 120 tablet 11 04/08/2017 9 ONETOUCH DELICA LANCETS 33G miscIndications:Kirstie betefren mellitus type 2, uncomplicated 1 strip daily. Once per day 100 each 11 04/01/2016 8 ONETOUCH VERIO test strip 1 each by Other route 5 (Five) Times a Day. Use as instructed 200 each 5 04/08/2017 8 traZODone (DESYREL) 50 MG tablet 01/28/2017 8 vitamin D (ERGOCALCIFEROL) 76226 UNITS capsule capsule 02/23/2016 8 documented as of this encounter Plan of Treatment Not on file documented as of this encounter Procedures Procedure Name Priority Date/Time Associated Diagnosis Comments NM THYROID UPTAKE AND SCAN Routine 04/29/2017 9:30 AM EDT Hyperthyroidism documented in this encounter Results * NM Thyroid Uptake & Scan (04/29/2017 9:30 AM EDT) Anatomical Region Laterality Modality Head and Neck N/A Nuclear Medicine 04/29/2017 10:2 3 AM EDT Impressions 04/29/2017 10:12 PM EDT 1. ??Four hour and 24-hour thyroid uptake appear within normal limits. 2. ??Slightly heterogeneous uptake pattern in the inferior right thyroid lobe, otherwise normal appearing thyroid scan. D: ??04/29/2017 E: ??04/29/2017 ?? This report was finalized on 04/29/2017 10:[address] Agapito Helms MD. Narrative 04/29/2017 10:12 PM EDT EXAMINATION: NM THYROID UPTAKE AND SCAN-04/28/2017: INDICATION: Hyperthyroidism; E05.90-Thyrotoxicosis, unspecified without thyrotoxic crisis or storm. ? TECHNIQUE: Radiopharmaceutical: 340 microcuries of I-123 p.o. COMPARISON: NONE. FINDINGS: There is diffuse, and fairly uniform radiotracer uptake throughout the thyroid gland, perhaps slightly less overall in the lower one-half of the right thyroid lobe, but without focal cold or hyperfunctioning nodule. Thyroid uptake is considered mid-range normal at 4 hours, shown as 14%, and in the upper range of normal at 24 hours shown as 36%. Procedure Note Agapito Helms MD - 04/29/2017 EXAMINATION: NM THYROID UPTAKE AND SCAN-04/28/2017: INDICATION: Hyperthyroidism; E05.90-Thyrotoxicosis, unspecified without thyrotoxic crisis or storm. TECHNIQUE: Radiopharmaceutical: 340 microcuries of I-123 p.o. COMPARISON: NONE. FINDINGS: There is diffuse, and fairly uniform radiotracer uptake throughout the thyroid gland, perhaps slightly less overall in the lower one-half of the right thyroid lobe, but without focal cold or hyperfunctioning nodule. Thyroid uptake is considered mid-range normal at 4 hours, shown as 14%, and in the upper range of normal at 24 hours shown as 36%. IMPRESSION: 1. Four hour and 24-hour thyroid uptake appear within normal limits. 2. Slightly heterogeneous uptake pattern in the inferior right thyroid lobe, otherwise normal appearing thyroid scan. E: 04/29/2017 This report was finalized on 04/29/2017 10:[address] Agapito Helms MD. us Martha Naik MD IMG NM ORDERABLES Final Result documented in this encounter Visit Diagnoses Not on filedocumented in this encounter Care Teams Zigzag Topstitcher Relationship Specialty Start Date End Date Maine Leblanc PA [address] [place] [address] PCP - General 09/25/15 03/05/21 documented as of this encounter
--- OUTSIDE RECORDS SUMMARY | 2024-06-26 16:08 | XMS_ITS | Encounter Summary ---
[facility] Address [address] [place] [address] Care Team Providers Care Cane Flume Chute Operator Name Role Phone Maine Leblanc Primary Care Provide r Reason for Visit * Reason Comments Diabetes Type II, with recent elevation of blood sugar of 495 yesterday after drinking regular sprite Encounter Details Date Type Department Care Team (Late st Contact Info) Description 01/06/2016 2:30 PM EDT Office Visit [facility] ENDOCRINOLOGY [address] [facility] [address] [place] [address] Bing Wallace, GIS INSTRUCTOR [address] [place] [address] Uncontrolled type 2 diabetes mellitus (CMS/HCC) (Primary Dx); Morbid obesity, unspecified obesity type; Polycystic ovaries; Depression Social History Tobacco Use Types Packs/Day Years Used Date Smoking Tobacco: Every Day Cigarettes Tobacco Cessation:Ready to Q uit: Yes Alcohol Use Standard Drinks/Week Comments No 0 [...] Sign Reading Time Taken Comments Blood Pressure 124/70 01/06/2016 2:23 PM EDT Pulse 80 01/06/2016 2:23 PM EDT Temperature - - Respiratory Rate - - Oxygen Saturation - - Inhaled Oxygen Concentration - - Weight 129 kg (284 lb) 01/06/2016 2:23 PM EDT Height 172.7 cm (5' 8 ) 01/06/2016 2:23 PM EDT Body Mass Index 43.18 01/06/2016 2:23 PM EDT documented in this encounter Patient Instructions * Patient Instructions* Bing Wallace APRN - 01/06/2016 3:25 PM EDT Images from the original note were not included. 01/06/16 Diabetes Treatment Recommendations Pat Murphy 1990 ADA General Goals: A1c: near 7% A1C = 7 % - 10/2015 Fasting/before meal glucose: 90-130 2 Hour after meal glucoses: < 160 -180 mg/dL Bedtime - 110-120 Check blood sugar before breakfast &/or 2 hr after supper Medications: 1. Continue Metformin ER 500 mg - 2 tab after supper 2. Start Januvia 100 mg - 1 tablet in am Nutritional Recommendations: 45 -60 grams carbohydrates per meal & 15 grams per snack Physical Activity Goals: Walk at least 15 min every day, ideally exercise 45-60 min most days (could be done in short bouts of 10-15 minutes. Call for advice if you have unexplained or unexpected hypoglycemia (glucose < 60) or persistent high glucose > 300. Office: [phone] Bing Wallace APRN, BC-ADM, CDE documented in this encounter Progress Notes * Bing Wallace APRN - 01/06/2016 3:14 PM EDT Chief complaint Diabetes - Type II, with recent elevation of blood sugar of 495 yesterday after drinking regular sprite Subjective Pat Murphy is a 25 y.o. female is here today for follow-up. History of Present Illness here in f/u for T2DM diagnosed 09/15/15 Pt. Called our office on 01/05/16 in am, saying blood sugar was near 500 but when I spoke with at 12:15 pm, same day, she said blood sugar at 10:15 am was 475 after drinking regular Sprite. At time ofour conversation, blood sugar(BS) down to 380. I explained that reg Sprite would cause elevated BS.Pt says [employer] needs statement is OK for her to be at work after having high BS. I [facility] or come here at next available work in appt. Pt voiced understanding of above. Today says checking (BS) X 1-2/day; says fasting in 200 -287. No glucose data for review taking metformin ER 500 mg - 2 tablets after supper drinks milk - 4 oz X 2 per day. Drinking some reg. Sweetened drinks such as Sprite says eats lot of processed frozen foods Lives with & 2 yo daughter. works FT at [employer], recently started at [employer] in November, had been working at [employer] having had gestational DM with first ; took Glyburide during that time Says has been very stressed since starting at [employer], says is expected to produce work so much faster than ever before at a job. Is having to do mandatory overtime as well. Medications Current Outpatient Prescriptions: ??? ARIPiprazole (ABILIFY) 2 MG tablet, Take by mouth daily., Disp: , Rfl: ??? Glucose Blood (ONETOUCH VERIO IQ ), Inject 1 strip under the skin daily., Disp: , Rfl: ??? metFORMIN XR (GLUCOPHAGE-XR) 500 MG 24 hr tablet, Take 500 mg by mouth 2 (two) times a day., Disp: , Rfl: ??? ONETOUCH DELICA LANCETS 33G misc, 1 strip daily. Once per day, Disp: , Rfl: ??? prazosin (MINIPRESS) 1 MG capsule, Take 1 tablet by mouth., Disp: , Rfl: ??? prazosin (MINIPRESS) 5 MG capsule, Take 1 tablet by mouth., Disp: , Rfl: ??? sertraline (ZOLOFT) 100 MG tablet, Take by mouth., Disp: , Rfl: ??? sitaGLIPtin (JANUVIA) 100 MG tablet, Take 1 tablet by mouth daily., Disp: 30 tablet, Rfl: 5 PMH The following portions of the patient's history were reviewed and updated as appropriate: allergies, current medications, past family history, past medical history, past social history, past surgicalhistory and problem list. Review of systems Review of Systems Constitutional: Positive for fatigue. Respiratory: Negative. Cardiovascular: Negative. Gastrointestinal: Positive for diarrhea. Endocrine: Positive for polydipsia and polyuria. Musculoskeletal: Negative. Psychiatric/Behavioral: Depression - stable Physical exam Objective Blood pressure 124/70, pulse 80, height 68 (172.7 cm), weight 284 lb (129 kg), not currently . Physical Exam Constitutional: She is oriented to person, place, and time. She appears well- developed and well-nourished. Morbid obesity Neck: No tracheal deviation present. No thyromegaly present. Cardiovascular: Normal rate, regular rhythm and normal heart sounds. Pulmonary/Chest: Effort normal and breath sounds normal. Musculoskeletal: Normal range of motion. She exhibits no edema, tenderness or deformity. Ambulates well Neurological: She is alert and oriented to person, place, and time. Skin: Skin is warm and dry. Psychiatric: Her behavior is normal. Judgment and thought content normal. Flat affect Nursing note and vitals reviewed. LABS AND IMAGING Office Visit on 01/06/2016 Component Date Value Ref Range Status ??? Glucose 01/06/2016 185* 70 - 130 mg/dL Final Assessment Assessment/Plan 1. Uncontrolled type 2 diabetes mellitus 2. Morbid obesity, unspecified obesity type 3. Polycystic ovaries 4. Depression Orders Placed This Encounter Procedures ??? POCT glucose fingerstick Plan I have reviewed diabetes in detail with the patient today. All questions have been answered to her satisfaction. We have discussed the goals of HgbA1C, glucose testing frequency, consistent carbohydrate diet and diabetes complication prevention. Stressed need to stop all regular sweetened sodas. , home glucose monitoring emphasized and all medications, side effects and compliance discussed carefully 20 min of 30 min [id number] visit time spent for coordination of care and counselling regarding identified problems as outlined in the objective, assessment and discussion portions of the documentation. Will add Januvia 100 mg daily in am; Lot # [id number], exp 05/08 dsp to pt. Teaching re: how this medication help with post meal BS Asked to call if has any problems with medication Work statement today, saying is okay to return to work with no limitations. documented in this encounter Plan of Treatment Not on file documented as of this encounter Procedures Procedure Name Priority Date/Time Associated Diagnosis Comments POCT GLUCOSE FINGERSTICK Routine 01/06/2016 2:37 PM EDT Uncontrolled type 2 diabetes mellitus (CMS/HCC) documented in this encounter Results * (ABNORMAL) POCT glucose fingerstick (01/06/2016 2:37 PM EDT) Glucose 185(A) 70 - 130 mg/dL [facility] Blood specimen (specimen) 01/06/2016 2:37 PM EDT us Bing Wallace GIS INSTRUCTOR POINT OF CARE TEST ORDERABLE S Final Result [facility]
[address] [place] [address], documented in this encounter Visit Diagnoses Diagnosis Uncontrolled type 2 diabetes mellitus- Primary Morbid obesity, unspecified obesity type Polycystic ovaries Depression Depressive disorder, not elsewhere classified documented in this encounter Care Teams Cane Flume Chute Operator Relationship Specialty Start Date End Date Maine Leblanc PA [address] [place] [address] PCP - General 09/25/15 03/05/21 documented as of this encounter
--- OUTSIDE RECORDS SUMMARY | 2024-06-26 16:08 | XMS_ITS | Encounter Summary ---
[facility] Address [address] [place] [address] Care Team Providers Care Respiratory Scientist Name Role Phone Maine Leblanc Primary Care Provide r Encounter Details Date Type Department Care Team ([facility] st Contact Info) Description 09/14/2017 12:[address] [facility] INTERNAL MEDICINE [address] [place] [address] Hyperthyroidism Social History Tobacco Use [...] Priority Date/Time Associated Diagnosis Comments TSH Routine 09/14/2017 12:36 PM EST Hyperthyroidism T4, FREE Routine 09/14/2017 12:36 PM EST Hyperthyroidism documented in this encounter Results * TSH (09/14/2017 12:36 PM EST) TSH 1.269 0.350 - 5.350 mIU/mL 09/14/2017 3:43 PM EST [facility] Blood Venipuncture / Unknown 09/14/2017 12:36 PM EST 09/14/2017 12:36 PM EST us Martha Naik MD LAB BLOOD ORDERABLES Final Res ult Performing Organization Address City/[facility]/ZIP Co de Phone Number [facility]
[address] [place] [address], * T4, Free (09/14/2017 12:36 PM EST) Free T4 1.01 0.89 - 1.76 ng/dL 09/14/2017 3:43 PM EST [facility] Blood Venipuncture / Unknown 09/14/2017 12:36 PM EST 09/14/2017 12:36 PM EST Martha Naik MD LAB BLOOD ORDERABLES Final Res ult Performing Organization Address [facility] Co de Phone Number [facility]
[address] [place] [address], documented in this encounter Visit Diagnoses Diagnosis Hyperthyroidism Thyrotoxicosis without mention of goiter or other cause, without mention of thyrotoxic crisis or storm documented in this encounter Care Teams Respiratory Scientist Relationship Specialty Start Date End Date Maine Leblanc PA [address] [place] [address] PCP - General 09/25/15 03/05/21 documented as of this encounter
--- OUTSIDE RECORDS SUMMARY | 2024-06-26 16:08 | XMS_ITS | Encounter Summary ---
[facility] Address [address] [place] [address] Care Team Providers Care Life Advisor Name Role Phone Maine Leblanc Primary Care Provide r Encounter Details Date Type Department Care Team (Late st Contact Info) Description 04/19/2017 Telephone [facility] ENDOCRINOLOGY [address] [facility] [address] [place] [address] Ruth Sommer MA Social History [...] Telephone Encounter - Ruth Sommer MA - 04/19/2017 10:21 AM EDT Pt came to our office yesterday and had her labs completed * Telephone Encounter - Ruth Sommer MA - 04/19/2017 10:20 AM EDT ----- Message from Martha Naik MD sent at 04/14/2017 9:08 PM EDT ----- Please call the patient regarding her lab results. Your thyroid function is abnormal high. Please come for repeat labs and evaluation early next week. Labs showed high calcium, which is commonly seenwith the high thyroid function. documented in this encounter Plan of Treatment Not on file documented as of this encounter Visit Diagnoses Not on filedocumented in this encounter Care Teams Life Advisor Relationship Specialty Start Date End Date Maine Leblanc PA [address] [place] [address] PCP - General 09/25/15 03/05/21 documented as of this encounter
--- OUTSIDE RECORDS SUMMARY | 2024-06-26 16:08 | XMS_ITS | Encounter Summary ---
[facility] [address] [place] [address] Care Team Providers Care Distribution Designer Name Role Phone Maine Leblanc Primary Care Provide r Encounter Details Date Type Department Care Team (Late st Contact Info) Description 06/13/2017 Telephone [facility] ENDOCRINOLOGY [address] [facility] [address] [place] [address] Ruth Sommer MA Social History [...] Telephone Encounter - Ruth Sommer MA - 06/13/2017 3:14 PM EST Pt informed of results and verbalized understandiing * Telephone Encounter - Ruth Sommer MA - 06/13/2017 3:13 PM EST ----- Message from Martha Naik MD sent at 06/12/2017 1:02 PM EST ----- Please call the patient regarding her lab results.Thyroid levels has slightly improved but still elevated. Please ask patient if 1/2 tablet of PTU helped with her sx of shakiness and tremors. If it did, but incomplete response, I would like to increase the dose to PTU 25 mg twice a day (1/2 tablet BID). Repeat labs in 1-2 months. documented in this encounter Plan of Treatment Not on file documented as of this encounter Visit Diagnoses Not on filedocumented in this encounter Care Teams Distribution Designer Relationship Specialty Start Date End Date Maine Leblanc PA [address] [place] [address] PCP - General 09/25/15 03/05/21 documented as of this encounter
--- OUTSIDE RECORDS SUMMARY | 2024-06-26 16:08 | XMS_ITS | Encounter Summary ---
[facility] Address [address] [place] [address] Care Team Providers Care Regulatory Administrator Name Role Phone Maine Leblanc Primary Care Provide r Reason for Visit * Reason Comments Diabetes F/u for type 2 diabe zulema, testing 1x qd. C/o weight gain and increased blood sugar numbers Encounter Details Date Type Department Care Team (Late st Contact Info) Description 04/08/2017 8:30 AM EDT Office Visit [facility] ENDOCRINOLOGY [address] [place] [address] Martha Grajeda MD [address] [place] [address] Type 2 diabetes mellitus without complication, unspecified long term care pharmacist insulin use status (CMS/[facility]) (Primary Dx) Social History Tobacco Use Types [...] Sign Reading Time Taken Comments Blood Pressure 132/80 04/08/2017 8:21 AM EDT Pulse 64 04/08/2017 8:21 AM EDT Temperature - - Respiratory Rate - - Oxygen Saturation 99% 04/08/2017 8:21 AM EDT Inhaled Oxygen Concentration - - Weight 124 kg (274 lb 6.4 oz) 04/08/2017 8:21 AM EDT Height 172.7 cm (5' 8 ) 04/08/2017 8:21 AM EDT Body Mass Index 41.72 04/08/2017 8:21 AM EDT documented in this encounter Patient Instructions * Patient Instructions* Martha Grajeda MD - 04/08/2017 8:30 AM EDT Results for orders placed or performed in visit on 04/08/17 POC Glucose Fingerstick Result Value Ref Range Glucose 140 (A) 70 - 130 mg/dL POC Glycosylated Hemoglobin (Hb A1C) Result Value Ref Range Hemoglobin A1C 6.0 % documented in this encounter Progress Notes * Martha Grajeda MD - 04/08/2017 8:30 AM EDT Chief complaint Diabetes (F/u for type 2 diabetes, testing 1x qd. C/o weight gain and increased blood sugar numbers) Subjective Pat Murphy is a 27 y.o. [...] of A1C. Medications Current Outpatient Prescriptions: ??? escitalopram (LEXAPRO) 10 MG tablet, , Disp: , Rfl: ??? Glucose Blood (BrndstrUCH VERIO IQ ), Inject 1 strip under the skin daily., Disp: , Rfl: ??? LATUDA 60 MG [...] daily, Disp: 50 each, Rfl: 11 ??? traZODone (DESYREL) 50 MG tablet, , Disp: , Rfl: ??? vitamin D (ERGOCALCIFEROL) 91141 UNITS capsule capsule, , Disp: , Rfl: [...] are negative. Physical exam Objective Blood pressure 132/80, pulse 64, height 68 (172.7 cm), weight 274 lb 6.4 oz (124 kg), SpO2 99 %, not currently . Physical [...] reviewed. LABS AND IMAGING Office Visit on 04/08/2017 Component Date Value Ref Range Status ??? Glucose 04/08/2017 140* 70 - 130 mg/dL Final ??? Hemoglobin A1C 04/08/2017 6.0 % Final Assessment Assessment/Plan Problem List Items Addressed This Visit Endocrine Diabetes mellitus - Primary Relevant Orders POC Glucose Fingerstick [...] Priority Date/Time Associated Diagnosis Comments TSH Routine 04/08/2017 8:54 AM EDT Type 2 diabetes mellitus without complication, unspecified long term care pharmacist insulin use status (CMS/HCC) COMPREHENSIVE METABOLIC PANEL Routine 04/08/2017 8:54 AM EDT Type 2 diabetes mellitus without complication, unspecified halfway insulin use status (CMS/HCC) POCT GLYCOSYLATED HEMOGLOBIN (HGB A1C) Routine 04/08/2017 8:39 AM EDT Type 2 diabetes mellitus without complication, unspecified long term care pharmacist insulin use status (CMS/HCC) POCT GLUCOSE FINGERSTICK Routine 04/08/2017 8:34 AM EDT Type 2 diabetes mellitus without complication, unspecified halfway insulin use status (CMS/HCC) documented in this encounter Results * (ABNORMAL) Comprehensive Metabolic Panel (04/08/2017 8:54 AM EDT) Glucose 112(H) 70 - 100 mg/dL 04/08/2017 1:43 PM EDT [facility] BUN 16 9 - 23 mg/dL 04/08/2017 1:43 PM EDT [facility] Creatinine 0.70 0.60 - 1.30 mg/dL 04/08/2017 1:43 PM EDT [facility] Sodium 139 132 - 146 mmol/L 04/08/2017 1:43 PM EDT [facility] Potassium 4.6 3.5 - 5.5 mmol/L 04/08/2017 1:43 PM EDT [facility] Chloride 107 99 - 109 mmol/L 04/08/2017 1:43 PM EDT [facility] CO2 30.0 20.0 - 31.0 mmol/L 04/08/2017 1:43 PM EDT [facility] Calcium 11.3(H) 8.7 - 10.4 mg/dL 04/08/2017 1:43 PM EDT [facility] Total Protein 6.8 5.7 - 8.2 g/dL 04/08/2017 1:43 PM EDT [facility] Albumin 4.20 3.20 - 4.80 g/dL 04/08/2017 1:43 PM EDT [facility] ALT (SGPT) 39 7 - 40 U/L 04/08/2017 1:43 PM EDT [facility] AST (SGOT) 27 0 - 33 U/L 04/08/2017 1:43 PM EDT [facility] Alkaline Phosphatase 76 25 - 100 U/L 04/08/2017 1:43 PM EDT [facility] Total Bilirubin 0.5 0.3 - 1.2 mg/dL 04/08/2017 1:43 PM EDT [facility] eGFR Non Amer 99 >60 mL/min/1.7 3 04/08/2017 1:43 PM EDT [facility] Globulin 2.6 gm/dL 04/08/2017 1:43 PM EDT [facility] A/G Ratio 1.6 1.5 - 2.5 g/dL 04/08/2017 1:43 PM EDT [facility] BUN/Creatinine Ratio 22.9 7.0 - 25.0 04/08/2017 1:43 PM EDT [facility] Anion Gap 2.0(L) 3.0 - 11.0 mmol/L 04/08/2017 1:43 PM EDT [facility] Blood Venipuncture / Unknown 04/08/2017 8:54 AM EDT 04/08/2017 8:54 AM EDT [facility] - 04/08/2017 1:43 PM EDT National Kidney [employer] Guidelines Stage ? Description ?GFR 1 ? Normal or High ? 90+ 2 ? Mild decrease ?60-89 3 ? Moderate decrease ??30-59 4 ? Severe decrease ?15-29 5 ? Kidney failure ? <15 us Martha Naik MD LAB BLOOD ORDERABLES Final Res ult [facility]
[address] [place] [address], * (ABNORMAL) TSH (04/08/2017 8:54 AM EDT) TSH <0.004(L) 0.350 - 5.350 mIU/mL 04/08/2017 1:46 PM EDT [facility] Blood Venipuncture / Unknown 04/08/2017 8:54 AM EDT 04/08/2017 8:54 AM EDT [facility] - 04/08/2017 1:46 PM EDT Due to abnormal TSH results, suggest ordering Free T4. Martha Naik MD LAB BLOOD ORDERABLES Final Res ult [facility]
[address] [place] [address], [place] [phone] * POC Glycosylated Hemoglobin (Hb A1C) (04/08/2017 8:39 AM EDT) Hemoglobin A1C 6.0 % [facility] Blood 04/08/2017 8:39 AM EDT Martha Naik MD POINT OF CARE TEST ORDERABLES Final Result Performing Organization Address [facility] Co de Phone Number [facility]
[address] [id number], [place] [phone] * (ABNORMAL) POC Glucose Fingerstick (04/08/2017 8:34 AM EDT) Glucose 140(A) 70 - 130 mg/dL [facility] Blood 04/08/2017 8:34 AM EDT Martha Naik MD POINT OF CARE TEST ORDERABLES Final Result Performing Organization Address [facility] Co de Phone Number [facility]
[address] [place] [address], [place] [phone] documented in this encounter Visit Diagnoses Diagnosis Type 2 diabetes mellitus without complication, unspecified long term care pharmacist insulin use status- Primary documented in this encounter Care Teams Regulatory Administrator Relationship Specialty Start Date End Date Maine Leblanc PA [address] [place] [address] PCP - General 09/25/15 03/05/21 documented as of this encounter
--- OUTSIDE RECORDS SUMMARY | 2024-06-26 16:08 | XMS_ITS | Encounter Summary ---
[facility] Organization [facility] Address [address] [place] [address] Care Team Providers Care Pr Manager Name Role Phone Maine Leblanc Primary Care Provide r Reason for Visit * Reason Comments Diabetes F/u for type 2 diabe zuelma and hyperthyroidism, pt stated that bs numbers have improved over the last week or two Hyperthyroidism Encounter Details Date Type Department Care Team (Late st Contact Info) Description 11/03/2017 9:45 AM EDT Office Visit [facility] ENDOCRINOLOGY [address] [place] [address] Martha Grajeda MD [address] [place] [address] Type 2 diabetes mellitus without complication, unspecified terminal block assembler insulin use status (CMS/HCC) (Primary Dx); Hyperthyroidism; Polycystic ovaries Social History Tobacco Use Types Packs/Day Years [...] Sign Reading Time Taken Comments Blood Pressure 130/82 11/03/2017 9:54 AM EDT Pulse 56 11/03/2017 9:54 AM EDT Temperature - - Respiratory Rate - - Oxygen Saturation 98% 11/03/2017 9:54 AM EDT Inhaled Oxygen Concentration - - Weight 130 kg (286 lb 6.4 oz) 11/03/2017 9:54 AM EDT Height 172.7 cm (5' 8 ) 11/03/2017 9:54 AM EDT Body Mass Index 43.55 11/03/2017 9:54 AM EDT documented in this encounter Patient Instructions * Patient Instructions* Martha Grajeda MD - 11/03/2017 9:45 AM EDT Results for orders placed or performed in visit on 11/03/17 POC Glucose Fingerstick Result Value Ref Range Glucose 102 70 - 130 mg/dL POC Glycosylated Hemoglobin (Hb A1C) Result Value Ref Range Hemoglobin A1C 6.8 % documented in this encounter Progress Notes * Martha Grajeda MD - 11/03/2017 9:45 AM EDT Chief complaint Diabetes (F/u for type 2 diabetes and hyperthyroidism, pt stated that bs numbers have improved overthe last week or two) and Hyperthyroidism Subjective Pat Muprhy is a 27 y.o. female is here [...] inferior thyroid, otherwise normal thyroid scan She is currently taking 50 mg daily PTU. She takes it once a day. Active problems: PCOS - dx 2006 Morbid Obesity - working on diet and exercise program. She takes Vitamin D 50 000 IU weekly. She still has intermittent palpitations with dizziness and nausea - occur in the evening. She is undergoing family planning. Quit smoking a week ago, gain weight after that and thinks that high glucose related to that. Medications Current Outpatient Prescriptions: ??? escitalopram (LEXAPRO) 10 MG tablet, , Disp: , Rfl: ??? glimepiride (AMARYL) 1 MG tablet, Take 1 tablet by mouth Every Morning Before Breakfast., Disp:30 tablet, Rfl: 5 ??? LATUDA 60 MG tablet, , Disp: [...] as instructed, Disp:200 each, Rfl: 5 ??? propylthiouracil (PTU) 50 MG tablet, Take 0.5 tablets by mouth Daily., Disp: 30 tablet, Rfl: 3 ??? SPRINTEC 28 0.25-35 MG-MCG per tablet, , Disp: , Rfl: ??? vitamin D (ERGOCALCIFEROL) 83024 UNITS capsule capsule, , Disp: , Rfl: [...] are negative. Physical exam Objective Blood pressure 130/82, pulse 56, height 172.7 cm (68 ), weight 130 kg (286 lb 6.4 oz), SpO2 98 %, not currently . [...] reviewed. LABS AND IMAGING Office Visit on 11/03/2017 Component Date Value Ref Range Status ??? Glucose 11/03/2017 102 70 - 130 mg/dL Final ??? Hemoglobin A1C 11/03/2017 6.8 % Final NM THYROID UPTAKE AND SCAN [...] (Completed) Polycystic ovaries Hyperthyroidism Other Visit Diagnoses None. Plan Glucose goals reviewed. Continue metformin 1000 mg BID, meds refilled. A1C is slightly higher. Cont with carb consistent diet and exercise, the importance of lifestyle modifications revisited. Congratulate on smoking cessation Repeat TFT and I will advice on PTU dose. I have recommended for now to take 25 mg BID. It is possible that her sx are related to med wearing off. Follow-up in 4 months Follow-up in 4 months. Monitor TFT every 2-3 months. documented in this encounter Plan of Treatment Not on file documented as of this encounter Procedures Procedure Name Priority Date/Time Associated Diagnosis Comments TSH Routine 11/03/2017 10:32 AM EDT Hyperthyroidism T4, FREE Routine 11/03/2017 10:32 AM EDT Hyperthyroidism POCT GLYCOSYLATED HEMOGLOBIN (HGB A1C) Routine 11/03/2017 10:13 AM EDT Type 2 diabetes mellitus without complication, unspecified retirement insulin use status ([facility]) POCT GLUCOSE FINGERSTICK Routine 11/03/2017 10:13 AM EDT Type 2 diabetes mellitus without complication, unspecified terminal block assembler insulin use status (CMS/[facility]) documented in this encounter Results * TSH (11/03/2017 10:32 AM EDT) TSH 0.900 0.350 - 5.350 mIU/mL 11/03/2017 1:23 PM EDT [facility] Blood Venipuncture / Unknown 11/03/2017 10:32 AM EDT 11/03/2017 10:32 AM EDT us Martha Naik MD LAB BLOOD ORDERABLES Final Res ult [facility]
[address] [place] [address], * T4, Free (11/03/2017 10:32 AM EDT) Free T4 1.35 0.89 - 1.76 ng/dL 11/03/2017 1:23 PM EDT [facility] Blood Venipuncture / Unknown 11/03/2017 10:32 AM EDT 11/03/2017 10:32 AM EDT us Martha Naik MD LAB BLOOD ORDERABLES Final Res ult [facility]
[address] [place] [address], * POC Glycosylated Hemoglobin (Hb A1C) (11/03/2017 10:13 AM EDT) Hemoglobin A1C 6.8 % [facility] Blood 11/03/2017 10:1 3 AM EDT us Martha Naik MD POINT OF CARE TEST ORDERABLES Final Result [facility]
[address] [place] [address], [place] [phone] * POC Glucose Fingerstick (11/03/2017 10:13 AM EDT) Pathologist [facility] Glucose 102 70 - 130 mg/dL [facility] Blood 11/03/2017 10:1 3 AM EDT us Martha Naik MD POINT OF CARE TEST ORDERABLES Final Result [facility]
[address] [place] [address], [place] [phone] documented in this encounter Visit Diagnoses Diagnosis Type 2 diabetes mellitus without complication, unspecified retirement insulin use status- Primary Hyperthyroidism Thyrotoxicosis without mention of goiter or other cause, without mention of thyrotoxic crisis or storm Polycystic ovaries documented in this encounter Care Teams Pr Manager Relationship Specialty Start Date End Date Maine Leblanc PA [address] [place] [address] PCP - General 09/25/15 03/05/21 documented as of this encounter
--- OUTSIDE RECORDS SUMMARY | 2024-06-26 16:08 | XMS_ITS | Encounter Summary ---
[facility] Address [address] [place] [address] Care Team Providers Care Manager Med Surg Name Role Phone Maine Leblanc Primary Care Provide r Encounter Details Date Type Department Care Team (Late st Contact Info) Description 09/20/2017 Telephone [facility] INTERNAL MEDICINE [address] [place] [phone] Martha Grajeda MD [address] [place] [address] Social History Tobacco Use Types Packs/Day Years [...] Telephone Encounter - Ruth Sommer MA - 09/21/2017 10:31 AM EST Lab orders have been entered * Telephone Encounter - Martha Grajeda MD - 09/21/2017 8:28 AM EST Yes, she would need appointment in October and labs TSH free T4. Could you please order those. * Telephone Encounter - Ruth Sommer MA - 09/20/2017 2:28 PM EST Yes, pt was informed of results. I returned pt's call and she wanted to verify that she still had an appointment in October and if she would need additional labs prior to that appointment. * Telephone Encounter - Martha Grajeda MD - 09/20/2017 1:20 PM EST I have resulted the labs for her and looks like you have given her the results, correct? * Telephone Encounter - Kamini Vegas - 09/20/2017 10:49 AM EST PATIENT CALLED TO GET THE RESULTS OF HER LAB WORK SHE HAD DONE AND WOULD LIKE TO GET A CALL BACK [phone] documented in this encounter Plan of Treatment Not on file documented as of this encounter Visit Diagnoses Diagnosis Hyperthyroidism- Primary Thyrotoxicosis without mention of goiter or other cause, without mention of thyrotoxic crisis or storm documented in this encounter Care Teams Manager Med Surg Relationship Specialty Start Date End Date Maine Leblanc PA [address] [place] [address] PCP - General 09/25/15 03/05/21 documented as of this encounter
--- OUTSIDE RECORDS SUMMARY | 2024-06-26 16:08 | XMS_ITS | Encounter Summary ---
[facility] [address] [place] [address] Care Team Providers Care Warehouse Helper Name Role Phone Maine Leblanc Primary Care Provide r Encounter Details Date Type Department Care Team ([facility] st Contact Info) Description 06/07/2017 8:45 AM EST Lab [facility] INTERNAL MEDICINE [address] [place] [address] Hyperthyroidism Social History Tobacco Use [...] Priority Date/Time Associated Diagnosis Comments TSH Routine 06/07/2017 8:42 AM EST Hyperthyroidism T4, FREE Routine 06/07/2017 8:42 AM EST Hyperthyroidism documented in this encounter Results * (ABNORMAL) TSH (06/07/2017 8:42 AM EST) TSH <0.004(L) 0.350 - 5.350 mIU/mL 06/07/2017 12:52 PM EST [facility] Blood Venipuncture / Unknown 06/07/2017 8:42 AM EST 06/07/2017 8:42 AM EST Narrative [facility] - 06/07/2017 12:52 PM EST Due to abnormal TSH results, suggest ordering Free T4. us Martha Naik MD LAB BLOOD ORDERABLES Final Res ult Performing Organization Address [facility] Co de Phone Number [facility]
[address] [place] [address], * T4, Free (06/07/2017 8:42 AM EST) Free T4 1.40 0.89 - 1.76 ng/dL 06/07/2017 12:52 PM EST [facility] Blood Venipuncture / Unknown 06/07/2017 8:42 AM EST 06/07/2017 8:42 AM EST us Martha Naik MD LAB BLOOD ORDERABLES Final Res ult Performing Organization Address [facility] Co de Phone Number [facility]
[address] [place] [address], documented in this encounter Visit Diagnoses Diagnosis Hyperthyroidism Thyrotoxicosis without mention of goiter or other cause, without mention of thyrotoxic crisis or storm documented in this encounter Care Teams Warehouse Helper Relationship Specialty Start Date End Date Maine Leblanc PA [address] [place] [address] PCP - General 09/25/15 03/05/21 documented as of this encounter
--- OUTSIDE RECORDS SUMMARY | 2024-06-26 16:08 | XMS_ITS | Encounter Summary ---
[facility] Address [address] [place] [address] Care Team Providers Care Wildlife Biology Technician Name Role Phone Maine Leblanc Primary Care Provide r Encounter Details Date Type Department Care Team (Late st Contact Info) Description 04/20/2017 Telephone [facility] INTERNAL MEDICINE [address] [place] [address] Martha Grajeda MD [address] [place] [address] Social History Tobacco Use Types Packs/Day Years [...] Telephone Encounter - Martha Grajeda MD - 04/21/2017 10:12 AM EDT Raegan created result note. Not all labs are available, but I have created review of the current ones. * Telephone Encounter - Ruth Sommer MA - 04/20/2017 3:12 PM EDT Can you review results of recent labs? * Telephone Encounter - Es Sparks RegSched Rep - 04/20/2017 2:43 PM EDT PATIENT REQUESTING LAB RESULTS documented in this encounter Plan of Treatment Not on file documented as of this encounter Visit Diagnoses Not on filedocumented in this encounter Care Teams Wildlife Biology Technician Relationship Specialty Start Date End Date Maine Leblanc PA [address] [place] [address] PCP - General 09/25/15 03/05/21 documented as of this encounter
--- OUTSIDE RECORDS SUMMARY | 2024-06-26 16:08 | XMS_ITS | Encounter Summary ---
[facility] Address [address] [place] [address] Care Team Providers Care Second Shift Supervisor Name Role Phone Maine Leblanc Primary Care Provide r Encounter Details Date Type Department Care Team ([facility] st Contact Info) Description 08/01/2017 Telephone [facility] INTERNAL MEDICINE [address] [place] [address] Martha Grajeda MD [address] [address] Social History Tobacco Use Types Packs/Day Years [...] encounter Miscellaneous Notes * Telephone Encounter - Kamini Vegas - 01/17/2018 2:21 PM EDT ERROR documented in this encounter Plan of Treatment Not on file documented as of this encounter Visit Diagnoses Not on filedocumented in this encounter Care Teams Second Shift Supervisor Relationship Specialty Start Date End Date Maine Leblanc PA [address] [place] [address] PCP - General 09/25/15 03/05/21 documented as of this encounter
--- OUTSIDE RECORDS SUMMARY | 2024-06-26 16:08 | XMS_ITS | Encounter Summary ---
[facility] [address] [place] [address] Care Team Providers Care Public Relations Assistant Name Role Phone Yogi Abdul MD Primary Care Provider [phone] Encounter Details Date Type Department Care Team (Late st Contact Info) Description 04/08/2017 Telephone [facility] INTERNAL MEDICINE [address] [place] [phone] Martha Grajeda MD [address] [place] [address] Social History Tobacco Use Types Packs/Day Years [...] on filedocumented in this encounter Care Teams Public Relations Assistant Relationship Specialty Start Date End Date Yogi Abdul MD [address] [place] [address] PCP - General Family Medicine 03/06/21 documented as of this encounter
--- OUTSIDE RECORDS SUMMARY | 2024-06-26 16:08 | XMS_ITS | Encounter Summary ---
[facility] Address [address] [place] [address] Care Team Providers Care Coordinator Of Evaluation Name Role Phone Maine Leblanc Primary Care Provide r Reason for Visit * Reason Comments Follow-up Type 2 DM Encounter Details Date Type Department Care Team (Late st Contact Info) Description 04/01/2016 8:00 AM EDT Office Visit [facility] ENDOCRINOLOGY [address] [facility] [address] [place] [address] Bing Wallace, SYSTEMS PLANNER [address] [place] [address] Diabetes mellitus type 2, uncontrolled (CMS/HCC) (Primary Dx); Diabetes mellitus type 2, uncomplicated; Depression; Polycystic ovaries; Morbid obesity, unspecified obesity type Social History Tobacco Use Types Packs/Day Years [...] Sign Reading Time Taken Comments Blood Pressure 120/74 04/01/2016 8:11 AM EDT Pulse 74 04/01/2016 8:11 AM EDT Temperature - - Respiratory Rate - - Oxygen Saturation - - Inhaled Oxygen Concentration - - Weight 129 kg (284 lb) 04/01/2016 8:11 AM EDT Height 172.7 cm (5' 8 ) 04/01/2016 8:11 AM EDT Body Mass Index 43.18 04/01/2016 8:11 AM EDT documented in this encounter Patient Instructions * Patient Instructions* Bing Wallace APRN - 04/01/2016 9:23 AM EDT 04/01/16 Diabetes Treatment Recommendations Pat Murphy BD - 1990 ADA General Goals: A1c: near 7% A1C = HEMOGLOBIN A1C Date Value Ref Range Status 04/01/2016 6.9 % Final Fasting/before meal glucose: 90-130 2 Hour after meal glucoses: < 160 -180 mg/dL Bedtime - 110-120 Check blood sugar before breakfast &/or 2 hrs after supper Medications: 1. Metformin ER 500 mg - 2 tablets twice a day with food Nutritional Recommendations: 45 - 60 grams carbohydrates per meal 15 grams per snack Physical Activity Goals: Walk at least 15 min every day, ideally exercise 45-60 min most days (could be done in short bouts of 10-15 minutes. Call for advice if you have unexplained or unexpected hypoglycemia (glucose < 60) or persistent high glucose > 300. Office: [phone] Bing Wallace APRN, BC-ADM, CDE documented in this encounter Progress Notes * Bing Wallace APRN - 04/01/2016 9:03 AM EDT Chief complaint Follow-up (Type 2 DM ) Subjective Pat Murphy is a 26 y.o. female is here today for follow-up. History of Present Illness here in f/u for T2DM diagnosed 09/15/15 says checking (BS) X 1/day; says fasting in 137 -150's. No glucose data for review metformin ER 500 mg - 2 tablets bid with food drinks milk - 4 oz X 2 per day. 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 Unemployed, looking for work Reports having had gestational DM with first ; took Glyburide during that time Took Januvia 100 mg for about a month, discontinued due to low BS Active problems: PCOS - dx 2006 Morbid Obesity - no change since last visit Medications Current Outpatient Prescriptions: ??? AMITIZA 8 MCG capsule, , Disp: , Rfl: ??? ARIPiprazole (ABILIFY) 10 MG tablet, , Disp: , Rfl: ??? Glucose Blood (ONETOUCH VERIO IQ ), Inject 1 strip under the skin daily., Disp: , Rfl: ??? lamoTRIgine (LaMICtal) 100 MG tablet, , Disp: , Rfl: ??? metFORMIN XR (GLUCOPHAGE-XR) 500 MG 24 hr tablet, Take 1 tablet by mouth 2 (two) times a day. 2tablets bid with food, Disp: 120 tablet, Rfl: 5 ??? ONETOUCH DELICA LANCETS 33G misc, 1 strip daily. Once per day, Disp: 100 each, Rfl: 11 ??? ONETOUCH VERIO test strip, Uses daily, Disp: 50 each, Rfl: 11 ??? polyethylene glycol (MIRALAX) powder, , Disp: , Rfl: ??? prazosin (MINIPRESS) 1 MG capsule, Take 1 tablet by mouth., Disp: , Rfl: ??? prazosin (MINIPRESS) 5 MG capsule, Take 1 tablet by mouth., Disp: , Rfl: ??? sertraline (ZOLOFT) 100 MG tablet, Take by mouth., Disp: , Rfl: ??? vitamin D (ERGOCALCIFEROL) 15725 UNITS capsule capsule, , Disp: , Rfl: PMH The following portions of the patient's history were reviewed and updated as appropriate: allergies, current medications, past family history, past medical history, past social history, past surgicalhistory and problem list. Review of systems Review of Systems Constitutional: Positive for unexpected weight change. Negative for fatigue. HENT: Negative for congestion. Eyes: Negative for visual disturbance. Respiratory: Negative for shortness of breath. Cardiovascular: Negative. Negative for chest pain and leg swelling. Gastrointestinal: Positive for diarrhea (watery stools daily). Negative for constipation and nausea. Endocrine: Negative. [...] are negative. Physical exam Objective Blood pressure 120/74, pulse 74, height 68 (172.7 cm), weight 284 lb [...] reviewed. LABS AND IMAGING Office Visit on 04/01/2016 Component Date Value Ref Range Status ??? Glucose 04/01/2016 137* 70 - 130 mg/dL Final ??? Hemoglobin A1C 04/01/2016 6.9 % Final Assessment Assessment/Plan Problem List Items Addressed This Visit Digestive Morbid obesity Endocrine Polycystic ovaries Other Depression Relevant Medications ARIPiprazole (ABILIFY) 10 MG tablet Other Visit Diagnoses Diabetes mellitus type 2, uncontrolled - Primary Diabetes mellitus type 2, uncomplicated Relevant Medications metFORMIN XR (GLUCOPHAGE-XR) 500 MG 24 hr tablet Other Relevant Orders POCT glucose (Completed) POCT glycated hemoglobin, total (Completed) Plan Discussed need for glucose data with Ms. Murphy, affirming efforts to manage DM. See pt instructions Voices understanding of above REfills for DM med & supplies given . documented in this encounter Plan of Treatment Not on file documented as of this encounter Procedures Procedure Name Priority Date/Time Associated Diagnosis Comments POCT GLYCATED HEMOGLOBIN, TOTAL Routine 04/01/2016 8:19 AM EDT Diabetes mellitus type 2, uncomplicated POCT GLUCOSE FINGERSTICK Routine 04/01/2016 8:19 AM EDT Diabetes mellitus type 2, uncomplicated documented in this encounter Results * POCT glycated hemoglobin, total (04/01/2016 8:19 AM EDT) Hemoglobin A1C 6.9 % [facility] Urine 04/01/2016 8:19 AM EDT us Bing Wallace APRN POINT OF CARE TEST ORDERABLE S Final Result [facility]
[address] [place] [address], [place] [phone] * (ABNORMAL) POCT glucose (04/01/2016 8:19 AM EDT) Glucose 137(A) 70 - 130 mg/dL [facility] Blood 04/01/2016 8:19 AM EDT us Bing Wallace APRN POINT OF CARE TEST ORDERABLE S Final Result Performing Organization Address [facility]/ZIP Co de Phone Number [facility]
[address] [place] [id number], [place] [phone] documented in this encounter Visit Diagnoses Diagnosis Diabetes mellitus type 2, uncontrolled- Primary Diabetes mellitus type 2, uncomplicated Depression Depressive disorder, not elsewhere classified Polycystic ovaries Morbid obesity, unspecified obesity type documented in this encounter Care Teams Coordinator Of Evaluation Relationship Specialty Start Date End Date Maine Leblanc PA [address] [place], [place] [id number] PCP - General 09/25/15 03/05/21 documented as of this encounter
--- OUTSIDE RECORDS SUMMARY | 2024-06-26 16:08 | XMS_ITS | Encounter Summary ---
Author Organization [facility] Address [address] [place] [address] Care Team Providers Care Reception Interviewer Name Role Phone Maine Leblanc Primary Care Provide r Reason for Visit * Diagnostic Imaging (Routine) - Closed Specialty Diagnoses / Procedures Referred By Contac t Referred To Contact Radiology Diagnoses Hyperthyroidism Procedures NM Thyroid Uptake & Scan Martha Grajeda MD [address] [place] [address] Phone: tel: fax: Referral ID Status Reason Start Date Expiration Date Visits Re quested Visits Authorized [id number] Closed 04/21/2017 04/21/2018 1 1 Encounter Details Date Type Department Care Team (Late st Contact Info) Description 04/28/2017 12:43 PM EDT - 04/28/2017 11:59 PM EDT Hospital Encounter [facility] NUCLEAR MEDICINE [address] [place] [phone] Martha Grajeda MD [address] [place] [address] Discharge Disposition: Home or Self [...] MG tablet 01/28/2017 8 vitamin D (ERGOCALCIFEROL) 92749 UNITS capsule capsule 02/23/2016 8 documented as [...] on filedocumented in this encounter Care Teams Reception Interviewer Relationship Specialty Start Date End Date Maine Leblanc PA [address] [place] [address] PCP - General 09/25/15 03/05/21 documented as of this encounter
--- OUTSIDE RECORDS SUMMARY | 2024-06-26 16:08 | XMS_ITS | Encounter Summary ---
[facility] [address] [place] [address] Care Team Providers Care Critical Care Specialist Name Role Phone Maine Leblanc Primary Care Provide r Reason for Visit * Reason Onset Date Comments Med Refill 04/01/2016 Encounter Details Date Type Department Care Team (Late st Contact Info) Description 04/01/2016 Refill [facility] ENDOCRINOLOGY [address] [facility] [address] [place] [phone] Stacy Haney RegSched Rep Diabetes mellitus type 2, uncomplicated Social History Tobacco Use Types Packs/Day Years [...] as of this encounter Visit Diagnoses Diagnosis Diabetes mellitus type 2, uncomplicated documented in this encounter Care Teams Critical Care Specialist Relationship Specialty Start Date End Date Maine Leblanc PA [address] [place] [id number] PCP - General 09/25/15 03/05/21 documented as of this encounter
--- OUTSIDE RECORDS SUMMARY | 2024-06-26 16:08 | XMS_ITS | Encounter Summary ---
[facility] [address] [place] [address] Care Team Providers Care Nozzle Tender Name Role Phone Maine Leblanc Primary Care Provide r Encounter Details Date Type Department Care Team (Late st Contact Info) Description 04/15/2017 Telephone [facility] ENDOCRINOLOGY [address] [facility] [address] [place] [address] Ruth Sommer MA Social History [...] Telephone Encounter - Ruth Sommer MA - 04/15/2017 4:20 PM EDT Called pt, no answer. Left message to call back. * Telephone Encounter - Ruth Sommer MA - 04/15/2017 4:20 PM EDT ----- Message from Martha Naik [...] on filedocumented in this encounter Care Teams Nozzle Tender Relationship Specialty Start Date End Date Maine Leblanc PA [address] [place] [address] PCP - General 09/25/15 03/05/21 documented as of this encounter
--- OUTSIDE RECORDS SUMMARY | 2024-06-26 16:08 | XMS_ITS | Encounter Summary ---
[facility] Address [address] [place] [address] Care Team Providers Care Tool Or Die Drawing Checker Name Role Phone Maine Leblanc Primary Care Provide r Reason for Referral * Diagnostic Imaging (Routine) - Closed Specialty Diagnoses / Procedures Referred By Contac t Referred To Contact Radiology Diagnoses Hyperthyroidism Procedures NM Thyroid Uptake & Scan Martha Grajeda MD [facility] [place] [address] Phone: tel: fax: Referral ID Status Reason Start Date Expiration Date Visits Re quested Visits Authorized [id number] Closed 04/21/2017 04/21/2018 1 1 Reason for Visit * Diagnostic Imaging (Routine) - Closed Specialty Diagnoses / Procedures Referred By Contac valorie Referred To Contact Radiology Diagnoses Hyperthyroidism Procedures NM Thyroid Uptake & Scan Martha Grajeda MD [facility] [place] [address] Phone: tel: fax: Referral ID Status Reason Start Date Expiration Date Visits Re quested Visits Authorized [id number] Closed 04/21/2017 04/21/2018 1 1 Encounter Details Date Type Department Care Team (Latest Contact Info) Description 04/28/2017 8:16 AM EDT - 04/28/2017 11:59 PM EDT Hospital Encounter [facility] NUCLEAR MEDICINE [address] [place] [phone] Martha Grajeda MD [address] [facility] [address] [place] [address] Hyperthyroidism Discharge Disposition: Home or Self Care Social [...] ype 2 diabetes mellitus without complication, unspecified long-term insulin use status 2 tablets bid with [...] MG tablet 01/28/2017 8 vitamin D (ERGOCALCIFEROL) 98981 UNITS capsule capsule 02/23/2016 8 documented as of this encounter Plan of Treatment Not on file documented as of this encounter Procedures Procedure Name Priority Date/Time Associated Diagnosis Comments NM THYROID UPTAKE AND SCAN Routine 04/29/2017 9:30 AM EDT Hyperthyroidism SCANNED NUCLEAR MED 04/28/2017 SCANNED NUCLEAR MED 04/28/2017 documented in this encounter Results * NM [...] 10:[address] Agapito Helms MD. Martha Naik MD IMG NM ORDERABLES Final Result * SCANNED NUCLEAR MED (04/28/2017) Anatomical Region Laterality Modality Nuclear Medicine [facility] Onbase IMG NM ORDERABLES Final Resul t * SCANNED NUCLEAR MED (04/28/2017) Anatomical Region Laterality Modality Nuclear Medicine [facility] Onbase IMG NM ORDERABLES Final Resul t documented in this encounter Visit Diagnoses Diagnosis Hyperthyroidism Thyrotoxicosis without mention of goiter or other cause, without mention of thyrotoxic crisis or storm documented in this encounter Administered Medications Inactive Administered Medications - up to 3 most recent administrations Medication Order MAR Action Action Date Dose Rate Site sodium iodide (I-123) capsule 1 capsule 1 capsule (1 each), Oral, Once in Imaging, On Anuradha 04/28/17 at 0945, For 1 dose, Microcuries: 345 Given 04/28/2017 8:55 AM EDT 1 capsule documented in this encounter Care Teams Tool Or Die Drawing Checker Relationship Specialty Start Date End Date Maine Leblanc PA [address] [place], [place] [phone] PCP - General 09/25/15 03/05/21 documented as of this encounter
--- OUTSIDE RECORDS SUMMARY | 2024-06-26 16:08 | XMS_ITS | Encounter Summary ---
[facility] Address [address] [place] [address] Care Team Providers Care House Worker General Name Role Phone Maine Leblanc Primary Care Provide r Encounter Details Date Type Department Care Team (Late st Contact Info) Description 02/02/2018 Telephone [facility] INTERNAL MEDICINE [address] [place] [phone] Martha Grajeda MD [address] [place] [address] Social History Tobacco Use Types Packs/Day Years [...] as of this encounter Progress Notes * Holly Hanna MA - 02/20/2018 3:39 PM EDTAddended by: HOLLY HANNA on: 02/20/2018 03:39 PM Modules accepted: Orders documented in this encounter Miscellaneous Notes * Telephone Encounter - Holly Hanna MA - 02/20/2018 3:37 PM EDT Patient states she has only been taking the glimepride occasionally when she feels like she needs it. She was advised for pre goals to restart with 1 daily and can increase to 2 daily if numbers are elevated rx will be sent to pharmacy Pt voiced understanding * Telephone Encounter - Sherine Stewart - 02/16/2018 12:31 PM EDT PT RETURNED YOUR CALL PLEASE CALL [phone] * Telephone Encounter - Anna Peterson - 02/15/2018 10:04 AM EDT PATIENT RETURNED A CALL FROM OUR OFFICE * Telephone Encounter - Martha Grajeda MD - 02/14/2018 4:47 PM EDT She has too high glucose for goals. We would need to increase her meds.Is he taking glyburide? We can increase the dose to 2 tabs daily of glimepiride. * Telephone Encounter - Arnie Otero MA - 02/03/2018 2:54 PM EDT Informed patient of response. Patients glucose [id number] last night, when patient got up this morning she ate a piece of toast tested sugar 2 hours later and it was at 195. * Telephone Encounter - Marilyn Christopher - 02/03/2018 10:35 AM EDT Patient called today to ask if Dr Grajeda had responded to her message from yesterday. I advised patient that Dr Grajeda did receive her message and that she would indeed receive a call with a responseto her question. * Telephone Encounter - Martha Grajeda MD - 02/03/2018 10:03 AM EDT It s common to see glucose elevation after the exercise as muscles release glucose storage. This isusually transient and may be followed by the hypoglcyemia * Telephone Encounter - Janessa Davenport MA - 02/02/2018 1:10 PM EDT Please advise, Patient does have an appt next month too * Telephone Encounter - Anna Peterson - 02/02/2018 10:20 AM EDT PATIENT WOULD LIKE TO KNOW WHY HER SUGAR KEEP JUMPING UP AFTER HER WORK OUTS. AM SUGARS ARE 155 DRANK A 4 CARB SHAKE THEN WORKED OUT AFTER WORK OUT SUGARS WERE 201. documented in this encounter Plan of Treatment Not on file documented as of this encounter Visit Diagnoses Not on filedocumented in this encounter Care Teams House Worker General Relationship Specialty Start Date End Date Maine Leblanc PA [address] [place] [address] PCP - General 09/25/15 03/05/21 documented as of this encounter
--- OUTSIDE RECORDS SUMMARY | 2024-06-26 16:08 | XMS_ITS | Encounter Summary ---
[facility] Address [address] [place] [address] Care Team Providers Care Granite Fabricator Name Role Phone Maine Leblanc Primary Care Provide r Encounter Details Date Type Department Care Team (Late st Contact Info) Description 04/14/2017 Telephone [facility] INTERNAL MEDICINE [facility] [place] [address] Martha Grajeda MD [address] [place] [address] Social History Tobacco Use Types Packs/Day Years [...] Telephone Encounter - Ruth Sommer MA - 04/14/2017 12:13 PM EDT Returned pt's call, pt was just wanting to make sure that she was taking the correct dosage of her Metformin. * Telephone Encounter - Sherine Stewart - 04/14/2017 10:25 AM EDT PLEASE CALL PT SHE HAS QUESTIONS ABOUT HER METFORMIN [phone] documented in this encounter Plan of Treatment Not on file documented as of this encounter Visit Diagnoses Not on filedocumented in this encounter Care Teams Granite Fabricator Relationship Specialty Start Date End Date Maine Leblanc PA [address] [place] [address] PCP - General 09/25/15 03/05/21 documented as of this encounter
--- OUTSIDE RECORDS SUMMARY | 2024-06-26 16:08 | XMS_ITS | Encounter Summary ---
[facility] Address [address] [place] [address] Care Team Providers Care Hazardous Substances Engineer Name Role Phone Maine Leblanc Primary Care Provide r Encounter Details Date Type Department Care Team (Late st Contact Info) Description 10/27/2015 Office Visit Converted [facility] INTERNAL MEDICINE [address] [place] [address] Bing Wallace, ELECTRICAL TECHNICIAN INSTRUCTOR [address] [place] [address] Social History Tobacco Use Types Packs/Day Years Used Date Smoking Tobacco: Never Assessed Comments Unknown Sex and Gender Information Value Date Recorded Sex Assigned at Not on file Legal Sex Female 12:43 PM EDT Gender Identity Not on file Sexual Orientation Not on file documented as of this encounter Last Filed Vital Signs Vital Sign Reading Time Taken Comments Blood Pressure 124/76 10/27/2015 8:45 AM EDT Pulse 84 10/27/2015 8:45 AM EDT Temperature - - Respiratory Rate 17 10/27/2015 8:45 AM EDT Oxygen Saturation 98% 10/27/2015 8:45 AM EDT Inhaled Oxygen Concentration - - Weight 133 kg (293 lb 3 oz) 10/27/2015 8:45 AM E DT Height 172.7 cm (5' 8 ) 10/27/2015 8:45 AM EDT Body Mass Index 44.58 10/27/2015 8:45 AM EDT documented in this encounter Consult Notes * Bing Wallace APRN - 10/27/2015 8:30 AM EDT Chief Complaint New patient being seen at the request of VERÓNICA KRUEGER for Diabetes. History of Present Illness HPI: here in consultation for T2DM diagnosed 09/15/15 Not checking blood sugar(BS) Was taking metformin 1000 mg - 1 tab bid for 3 months, from 06/08 - 09/09 Reports having had diarrhea w/ abdominal pain ~ 2 hrs after taking denies eating lots of fried foods drinks milk - 8 oz X 2 per day. Not drinking regular soda for ~ one month says eats lot of processed frozen foods Lives with & 2 yo daughter. works FT at [employer]. Pt. wanting to get again Reports having had gestational DM with first ; took Glyburide, watched diet, checked bloodsugars regularly. needing glucometer Review of Systems Constitutional: fatigue, but as noted in HPI. Eyes: negative. ENT: negative. Cardiovascular: negative. Respiratory: negative. Gastrointestinal: constipation. Genitourinary: interstitial cystitis, PCOS; irregular menses, but as noted in HPI. Musculoskeletal: diffuse joint pain. Integumentary and Breasts: negative. Neurological: negative. Psychiatric: depression and sees psychiatrist every 3 months & therapist every 2 weeks, but notsuicidal. Endocrine: as noted in HPI. Hematologic and Lymphatic: negative. Active Problems 1. Diabetes mellitus (250.00) (E11.9) 2. Morbid obesity (278.01) (E66.01) Past Medical History ?? History of depression (V11.8) (Z86.59) ?? History of diabetes mellitus (V12.29) (Z86.39) ?? History of gestational diabetes mellitus (GDM) (V12.21) (Z86.32) ?? History of ovarian cyst (V13.29) (Z87.42) Surgical History ?? History of Dental Surgery Family History ?? Family history of Kidney transplanted ?? Family history of diabetes mellitus (V18.0) (Z83.3) ?? Family history of hypertension (V17.49) (Z82.49) ?? Family history of obesity (V18.19) (Z83.49) ?? FHx: mental illness (V17.0) (Z81.8) ?? Family history of High cholesterol Social History ?? Current every day smoker (305.1) (F17.200) ?? 1/2 ppd X 12 yrs ?? Currently working ?? works at [employer] ? No alcohol use ?? No drug use Current Meds Medication Name Instruction Abilify 2 MG Oral Tablet TAKE 1 TABLET DAILY. Minipress 1 MG Oral Capsule Take 1 tablet daily Minipress 5 MG Oral Capsule Take 1 tablet daily Zoloft 100 MG Oral Tablet TAKE ONE TABLET BY MOUTH ONE Time A DAY Allergies 1. Ciprofloxacin HCl TABS 2. Sulfa Drugs Vitals Signs [Data Includes: Current Encounter] Heart Rate: 84 Respiration: 17 Systolic: 124 Diastolic: 76 Height: 5 ft 8 in Weight: 293 lb 3 oz BMI Calculated: 44.58 BSA Calculated: 2.4 O2 Saturation: 98 Physical Exam Constitutional General appearance: Abnormal. Morbid obesity, good eye contact. Eyes Conjunctiva and lids: No swelling, erythema or discharge. Pupils and irises: Equal, round, reactive to light. Ears, Nose, Mouth, and Throat Lips, teeth, and gums: Abnormal. Left upper missing tooth. Oropharynx: Normal with no erythema, edema, exudate or lesions. Neck Neck: Supple, symmetric, trachea midline, no masses. Thyroid: Normal, no thyromegaly. Pulmonary Respiratory effort: No increased work of breathing or signs of respiratory distress. Auscultation of lungs: Clear to auscultation. Cardiovascular Auscultation of heart: Normal rate and rhythm, normal S1 and S2, no murmurs. Carotid pulses: 2+ bilaterally. Pedal pulses: 2+ bilaterally. Abdomen Abdomen: Abnormal. Central obesity. Liver and spleen: No hepatomegaly or splenomegaly. Lymphatic Palpation of lymph nodes in neck: No lymphadenopathy. Musculoskeletal Gait and station: Normal. Stability: Normal. Skin Skin and subcutaneous tissue: Normal without rashes or lesions. Neurologic Cranial nerves: Cranial nerves II-XII intact. Cortical function: Normal mental status. Diabetic Foot Exam: Right Foot Findings: no swelling. Left Foot Findings: no swelling. Monofilament Testing: Normal tactile sensation with monofilament testing throughout both feet. Vascular: Pulses: 2+ in the dorsalis pedis. Pulses: 2+ in the dorsalis pedis. bilateral excoriated lesions to dorsal areas consistent to pt scratching, no erythema, no streaking Psychiatric Judgment and insight: Normal. Orientation to person, place, and time: Normal. Recent and remote memory: Intact. Mood and affect: Normal. Results/Data CMP 27Oct2015 10:03AM Bing Wallace Test Name Result Flag Reference Glucose 142 mg/dL H 70-100 Creatinine 0.6 mg/dL 0.6-1.3 BUN 11 mg/dL 9-23 Sodium 140 mmol/L 132-146 Potassium 4.8 mmol/L 3.5-5.5 Chloride 106 mmol/L 99-109 Carbon Dioxide 33 mmol/L H 20-31 Calcium 9.2 mg/dL 8.7-10.4 Total Protein 7.3 g/dL 5.7-8.2 Albumin 4.2 g/dL 3.2-4.8 Bilirubin,Total 0.2 mg/dL L 0.3-1.2 Alkaline Phos 98 Units/L 25-100 AST 22 Units/L 0-33 ALT 39 Units/L 7-40 Anion Gap 1 mmol/L L 3-11 Ext. MDRD GFR 126 ml/min/1.732 National Kidney Foundation Guidelines Stage Description GFR 1 Normal or High 90+ 2 Mild decrease 60-89 3 Moderate decrease 30-59 4 Severe decrease 15-29 5 Kidney failure <15 In Office Blood Glucose 27Oct2015 09:02AM Bing Wallace Test Name Result Flag Reference Blood Glucose Results 7.0 In Office A1C 27Oct2015 09:01AM Ronnie Wallaceca Test Name Result Flag Reference A1C 166 Assessment 1. Diabetes mellitus (250.00) (E11.9) 2. Morbid obesity (278.01) (E66.01) 3. PCOS (polycystic ovarian syndrome) (256.4) (E28.2) Plan Diabetes mellitus ?? Start: HCl ER (OSM) 500 MG Oral Tablet Extended Release 24 Hour; TAKE 1 TABLET BID WITH FOOD ?? Start: Delica Lancets Fine Miscellaneous; TEST ONCE DAILY AND NEEDED ?? Start: Verio In Vitro Strip; 1 strip daily ?? CMP; Status:Resulted - Requires Verification; Done: 27Oct2015 10:03AM Health Maintenance ?? In Office A1C; Status:Complete; Done: 27Oct2015 09:01AM ?? In Office Blood Glucose; Status:Complete; Done: 27Oct2015 09:02AM Discussion/Summary discussed importance of checking blood sugar regularly. One touch Verio glucometer dsp to pt, test strips & lancets ordered Reviewed & discussed signs & sx's of hypoglycemia, how to treat & avoid Educ handout re: how to treat & avoid re: low blood sugars given to pt Teaching re: eating consistent CHO's for meals & snacks ADA General Goals: A1c: near 7% A1C = 6.8 % - 09/15/15; Recommend A1C of 6 -6.5 % prior & during Is 7.0% - today Fasting/before meal glucose: 90-130 2 Hour after meal glucoses: < 160 -180 mg/dL Bedtime ? 110 -120 Check blood sugar before breakfast &/or 2 hrs after supper Medications: 1. start Metformin ER 500 mg ? 1 tab after supper, if tolerates, increase to 1 tab twice a day with food in 7 days Nutritional Recommendations: 45 -60 grams carbohydrates per meal & 15 grams per snack Advise increasing physical activity such as walking outside more End of Encounter Meds Medication Name Instruction Abilify 2 MG Oral Tablet (ARIPiprazole) TAKE 1 TABLET DAILY. MetFORMIN HCl ER (OSM) 500 MG Oral Tablet Extended Release 24 Hour TAKE 1 TABLET BID WITH FOOD Minipress 1 MG Oral Capsule (Prazosin HCl) Take 1 tablet daily Minipress 5 MG Oral Capsule (Prazosin HCl) Take 1 tablet daily OneTouch Delica Lancets Fine Miscellaneous TEST ONCE DAILY AND NEEDED OneTouch Verio In Vitro Strip 1 strip daily Zoloft 100 MG Oral Tablet (Sertraline HCl) TAKE ONE TABLET BY MOUTH ONE Time A DAY Future Appointments Date/Time Provider Specialty Site 01/27/2016 02:30 PM Bing Wallace ARNP Endocrin[facility] Signatures Electronically signed by : SHERMAN Hoskins; Oct 27 2015 6:10PM EST (Author) documented in this encounter Plan of Treatment Not on file documented as of this encounter Visit Diagnoses Not on filedocumented in this encounter Care Teams Hazardous Substances Engineer Relationship Specialty Start Date End Date Maine Leblanc PA [address] [place] [address] PCP - General 09/25/15 03/05/21 documented as of this encounter
--- OUTSIDE RECORDS SUMMARY | 2024-06-26 16:08 | XMS_ITS | Encounter Summary ---
Author Organization [facility] Address [address] [place] [address] Care Team Providers Care Biodiesel Division Manager Name Role Phone Maine Leblanc Primary Care Provide r Reason for Visit * Reason Onset Date Comments Med Refill 01/24/2018 Encounter Details Date Type Department Care Team (Late st Contact Info) Description 01/24/2018 Refill [facility] INTERNAL MEDICINE [address] [place], [place] [phone] Martha Grajeda MD [address] [address] Social History Tobacco Use Types Packs/Day Years [...] encounter Miscellaneous Notes * Telephone Encounter - Lin Chawla - 01/24/2018 1:49 PM EDT [facility] IS OUT OF STOCK WITH THIS MEDICATION. PATIENT NEEDS US TO TRY TO SEND THIS PRESCRIPTION TOANOTHER PHARMACY. YOU CAN CALL THIS INTO [facility]. documented in this encounter Plan of Treatment Not on file documented as of this encounter Visit Diagnoses Not on filedocumented in this encounter Care Teams Biodiesel Division Manager Relationship Specialty Start Date End Date Maine Leblanc PA [address] [place] [address] PCP - General 09/25/15 03/05/21 documented as of this encounter
--- OUTSIDE RECORDS SUMMARY | 2024-06-26 16:08 | XMS_ITS | Encounter Summary ---
[facility] Address [address] [place] [address] Care Team Providers Care Quick Technician Name Role Phone Maine Leblanc Primary Care Provide r Encounter Details Date Type Department Care Team ([facility] st Contact Info) Description 04/18/2017 8:45 AM EDT Lab [facility] INTERNAL MEDICINE [address] [place] [phone] Hyperthyroidism Social History Tobacco Use Types [...] Associated Diagnosis Comments THYROID PEROXIDASE ANTIBODY Routine 04/18/2017 8:45 AM EDT Hyperthyroidism THYROID STIMULATING IMMUNOGLOBULIN Routine 04/18/2017 8:45 AM EDT Hyperthyroidism TSH Routine 04/18/2017 8:45 AM EDT Hyperthyroidism T4, FREE Routine 04/18/2017 8:45 AM EDT Hyperthyroidism COMPREHENSIVE METABOLIC PANEL Routine 04/18/2017 8:45 AM EDT Hyperthyroidism documented in this encounter Results * Thyroid Peroxidase Antibody (04/18/2017 8:45 AM EDT) Pathologist [facility] Thyroid Peroxidase Antibody 18 0 - 34 IU/mL 04/19/2017 7:15 AM EDT [facility] Blood Venipuncture / Unknown 04/18/2017 8:45 AM EDT 04/18/2017 8:45 AM EDT Narrative [facility] - 04/19/2017 7:15 AM EDT Performed at: ??[address] ??[id number] Ice Cutter: Reg Singh PhD, Phone: ??[phone] Martha Naik MD LAB BLOOD ORDERABLES Final Res ult Performing Organization Address [facility] Co de Phone Number [facility] [address] [place] [address], * (ABNORMAL) Thyroid Stimulating Immunoglobulin (04/18/2017 8:45 AM EDT) [facility] Thyroid Stimulating Immunoglobulin 486(H) 0 - 139 % 04/25/2017 10:07 AM EDT [facility] Blood Venipuncture / Unknown 04/18/2017 8:45 AM EDT 04/18/2017 8:45 AM EDT Narrative [facility] - 04/25/2017 10:07 AM EDT Performed at: ??[address] ??[id number] Ice Cutter: Derick Dunn MD, Phone: ??[phone] us Martha Naik MD LAB BLOOD ORDERABLES Final Res ult Performing Organization Address City/[facility]/ZIP Co de Phone Number [facility] [address] [place] [address], [place] [phone] * T4, Free (04/18/2017 8:45 AM EDT) [facility] Free T4 1.63 0.89 - 1.76 ng/dL 04/18/2017 2:22 PM EDT [facility] Blood Venipuncture / Unknown 04/18/2017 8:45 AM EDT 04/18/2017 8:45 AM EDT Martha Naik MD LAB BLOOD ORDERABLES Final Res ult Performing Organization Address City/[facility]/ZIP Co de Phone Number [facility]
[address] [place] [address], * (ABNORMAL) TSH (04/18/2017 8:45 AM EDT) TSH <0.004(L) 0.350 - 5.350 mIU/mL 04/18/2017 2:22 PM EDT [facility] Blood Venipuncture / Unknown 04/18/2017 8:45 AM EDT 04/18/2017 8:45 AM EDT Narrative [facility] - 04/18/2017 2:22 PM EDT Due to abnormal TSH results, suggest ordering Free T4. Martha Naik MD LAB BLOOD ORDERABLES Final Res ult Performing Organization Address City/[facility]/ZIP Co de Phone Number [facility]
[address] [place] [address], * (ABNORMAL) Comprehensive Metabolic Panel (04/18/2017 8:45 AM EDT) Glucose 225(H) 70 - 100 mg/dL 04/18/2017 2:22 PM EDT [facility] BUN 10 9 - 23 mg/dL 04/18/2017 2:22 PM EDT [facility] Creatinine 0.70 0.60 - 1.30 mg/dL 04/18/2017 2:22 PM EDT [facility] Sodium 139 132 - 146 mmol/L 04/18/2017 2:22 PM EDT [facility] Potassium 4.5 3.5 - 5.5 mmol/L 04/18/2017 2:22 PM EDT [facility] Chloride 106 99 - 109 mmol/L 04/18/2017 2:22 PM EDT [facility] CO2 27.0 20.0 - 31.0 mmol/L 04/18/2017 2:22 PM EDT [facility] Calcium 9.1 8.7 - 10.4 mg/dL 04/18/2017 2:22 PM EDT [facility] Total Protein 6.4 5.7 - 8.2 g/dL 04/18/2017 2:22 PM EDT [facility] Albumin 4.00 3.20 - 4.80 g/dL 04/18/2017 2:22 PM EDT [facility] ALT (SGPT) 36 7 - 40 U/L 04/18/2017 2:22 PM EDT [facility] AST (SGOT) 23 0 - 33 U/L 04/18/2017 2:22 PM EDT [facility] Alkaline Phosphatase 68 25 - 100 U/L 04/18/2017 2:22 PM EDT [facility] Total Bilirubin 0.2(L) 0.3 - 1.2 mg/dL 04/18/2017 2:22 PM EDT [facility] eGFR Non Amer 99 >60 mL/min/1.7 3 04/18/2017 2:22 PM EDT [facility] Globulin 2.4 gm/dL 04/18/2017 2:22 PM EDT [facility] A/G Ratio 1.7 1.5 - 2.5 g/dL 04/18/2017 2:22 PM EDT [facility] BUN/Creatinine Ratio 14.3 7.0 - 25.0 04/18/2017 2:22 PM EDT [facility] Anion Gap 6.0 3.0 - 11.0 mmol/L 04/18/2017 2:22 PM EDT [facility] Blood Venipuncture / Unknown 04/18/2017 8:45 AM EDT 04/18/2017 8:45 AM EDT Narrative [facility] - 04/18/2017 2:22 PM EDT National Kidney Foundation Guidelines Stage ? Description ?GFR 1 ? Normal or High ? 90+ 2 ? Mild decrease ?60-89 3 ? Moderate decrease ??30-59 4 ? Severe decrease ?15-29 5 ? Kidney failure ? <15 us Martha Naik MD LAB BLOOD ORDERABLES Final Res ult [facility]
[address] [place] [address], documented in this encounter Visit Diagnoses Diagnosis Hyperthyroidism Thyrotoxicosis without mention of goiter or other cause, without mention of thyrotoxic crisis or storm documented in this encounter Care Teams Quick Technician Relationship Specialty Start Date End Date Maine Leblanc PA [address] [place] [address] PCP - General 09/25/15 03/05/21 documented as of this encounter
--- OUTSIDE RECORDS SUMMARY | 2024-06-26 16:08 | XMS_ITS | Encounter Summary ---
[facility] Address [address] [place] [address] Care Team Providers Care Consumer Science Teacher Name Role Phone Maine Leblanc Primary Care Provide r Encounter Details Date Type Department Care Team (Late st Contact Info) Description 11/03/2015 Documentation Converted [facility] HISTORICAL CONV [address] [place] [address] Social History Tobacco Use Types Packs/Day Years Used Date Smoking Tobacco: Never Assessed Comments Unknown Sex and Gender Information Value Date Recorded Sex Assigned at Not on file Legal Sex Female 12:43 PM EDT Gender Identity Not on file Sexual Orientation Not on file documented as of this encounter Progress Notes * Bing Wallace, ADJUNCT POLITICAL SCIENCE INSTRUCTOR - 11/03/2015 10:49 PM EDT Dear FRANCK KERN, Your test results have returned and are listed below: Message to Patient Your blood sugar was elevated at 142, liver and kidney function within normal limits. Please call with questions or concerns. Verified Results [facility] 27Oct2015 10:03AM Bing Wallace Test Name Result [...] Severe decrease 15-29 5 Kidney failure <15 Signatures Electronically signed by : SHERMAN Hoskins; Nov 03 2015 10:49PM EST (Author) documented in this encounter Plan of Treatment Not on file documented as of this encounter Visit Diagnoses Not on filedocumented in this encounter Care Teams Consumer Science Teacher Relationship Specialty Start Date End Date Maine Leblanc PA [address] [place] [address] PCP - General 09/25/15 03/05/21 documented as of this encounter
--- OUTSIDE RECORDS SUMMARY | 2024-06-26 16:08 | XMS_ITS | Encounter Summary ---
[facility] Address [address] [place] [address] Care Team Providers Care Manager Fiber Name Role Phone Yogi Abdul MD Primary Care Provider [phone] Encounter Details Date Type Department Care Team (Late st Contact Info) Description 04/08/2017 Telephone [facility] INTERNAL MEDICINE [address] [place] [phone] Martha Grajeda MD [address] [place] [address] Social History Tobacco Use Types Packs/Day Years [...] filedocumented in this encounter Care Teams Manager Fiber Relationship Specialty Start Date End Date Yogi Abdul MD [address] [place] [address] PCP - General Family Medicine 03/06/21 documented as of this encounter
--- OUTSIDE RECORDS SUMMARY | 2024-06-26 16:08 | XMS_ITS | Encounter Summary ---
[facility] Address [address] [place] [address] Care Team Providers Care Medical Secretary Teacher Name Role Phone Maine Leblanc Primary Care Provide r Encounter Details Date Type Department Care Team (Late st Contact Info) Description 06/13/2017 Telephone [facility] [address] [facility] [address] [place] [address] Ruth Sommer MA Social History [...] encounter Miscellaneous Notes * Telephone Encounter - Barbara Whyte - 06/13/2017 2:55 PM EST Patient returned you call, you were not avaliable * Telephone Encounter - Anna Peterson - 06/13/2017 2:39 PM EST RETURNED YOUR CALL * Telephone Encounter - Ruth Sommer MA - 06/13/2017 2:37 PM EST Called pt, no answer. Left message to call back * Telephone Encounter - Ruth Sommer MA - 06/13/2017 2:37 PM EST ----- Message from Martha Naik [...] filedocumented in this encounter Care Teams Medical Secretary Teacher Relationship Specialty Start Date End Date Maine Leblanc PA [address] [place] [address] PCP - General 09/25/15 03/05/21 documented as of this encounter
--- OUTSIDE RECORDS SUMMARY | 2024-06-26 16:09 | XMS_ITS | Encounter Summary ---
Author Organization [employer] Address [address] [place] [address] Care Team Providers Care Telephoto Installer Name Role Phone Unavailable Primary Care Provider Unavailabl e Encounter Details Date Type Department Care Team (Late st Contact Info) Description 04/04/2019 Historic Encounter [facility] [address] [place] [address] Provider, [facility] Historical Social History Tobacco Use Types Packs/Day Years Used Date Smoking Tobacco: Never Assessed Comments Unknown Sex and Gender Information Value Date Recorded Sex Assigned at Not on file Legal Sex Female 3:37 PM CDT Gender Identity Not on file Sexual Orientation Not on file documented as of this encounter Plan of Treatment Not on file documented as of this encounter Procedures Procedure Name Priority Date/Time Associated Diagnosis Comments GLUCOSE-POC Routine 04/04/2019 10:38 PM EDT documented in this encounter Results * (ABNORMAL) Glucose, Point of Care (04/04/2019 10:38 PM EDT) Glucose POC2 67(L) 70 - 110 mg/dL 04/05/2019 2:38 AM EDT [facility] Top Cager [id number] 04/05/2019 2:38 AM EDT [facility] Device SN [id number] 04/05/2019 2:38 AM EDT [facility] Blood 04/04/2019 10:3 8 PM EDT 04/05/2019 2:40 AM EDT [facility] Historical Provider POINT OF CARE TEST ORDJulio eCsar DOUGLAS Final Result [facility] [address] [place], [place] [address] [phone] documented in this encounter Visit Diagnoses Not on filedocumented in this encounter
--- OUTSIDE RECORDS SUMMARY | 2024-06-26 16:09 | XMS_ITS | Encounter Summary ---
Author Organization [employer] Address [address] [place] [address] Care Team Providers Care Foundry Molder Name Role Phone Unavailable Primary Care Provider Unavailabl e Encounter Details Date Type Department Care Team (Late st Contact Info) Description 04/04/2019 Historic Encounter [facility] [address] [place] [address] Provider, [facility] Historical Social History Tobacco Use Types Packs/Day [...] Date/Time Associated Diagnosis Comments GLUCOSE-POC Routine 04/04/2019 6:25 AM EDT documented in this encounter Results * Glucose, Point of Care (04/04/2019 6:25 AM EDT) Glucose POC2 89 70 - 110 mg/dL 04/04/2019 10:25 AM EDT [facility] Patient Service Representative [phone] 04/04/2019 10:25 AM EDT [facility] Device SN [id number] 04/04/2019 10:25 AM EDT [facility] Blood 04/04/2019 6:25 AM EDT 04/04/2019 10:30 AM EDT [facility] Historical Provider POINT OF CARE TEST ORDE MISAEL Final Result [facility] [address] [place], [place] [address] [phone] documented in this encounter Visit Diagnoses Not on filedocumented in this encounter
--- OUTSIDE RECORDS SUMMARY | 2024-06-26 16:09 | XMS_ITS | Encounter Summary ---
Author Organization [employer] Address [address] [place] [id number] Care Team Providers Care Rough Planer Tender Name Role Phone Unavailable Primary Care Provider Unavailabl e Encounter Details Date Type Department Care Team (Late st Contact Info) Description 04/05/2019 Transcribed Document [facility] [place] [facility] [address] [place] [address] ProviderVineet MD [facility] [place] [address] Social History Tobacco Use Types Packs/Day Years Used Date Smoking Tobacco: Never Assessed Comments Unknown Sex and Gender Information Value Date Recorded Sex Assigned at Not on file Legal Sex Female 3:37 PM CDT Gender Identity Not on file Sexual Orientation Not on file documented as of this encounter Miscellaneous Notes * Cerner Conversion Note - Vineet Fitzgerald MD - 04/05/2019 5:00 PM CDT Chart Check - Review Order Profile Entered On: 04/05/2019 18:21 EDT Performed On: 04/05/2019 17:00 EDT by SINDHU MCCOY RN Chart Check Powerplans Initiated/Discontinued as Appropriate : Yes All Active Orders Reviewed : Yes Chart Reviewed With : SINDHU MCCOY RN YURT, DONNA, RN - 04/05/2019 18:20 EDT documented in this encounter Plan of Treatment Not on file documented as of this encounter Visit Diagnoses Not on filedocumented in this encounter
--- OUTSIDE RECORDS SUMMARY | 2024-06-26 16:09 | XMS_ITS | Encounter Summary ---
Author Organization [employer] Address [address] [place] [address] Care Team Providers Care Comfort Station Attendant Name Role Phone Unavailable Primary Care Provider Unavailabl e Encounter Details Date Type Department Care Team (Late st Contact Info) Description 04/05/2019 Historic Encounter [facility] [address] [place] [address] Provider, [facility] Historical Social History Tobacco Use Types Packs/Day [...] Procedure Name Priority Date/Time Associated Diagnosis Comments AUTOMATED DIFFERENTIAL ([facility] BKR DATA CONV) Routine 04/05/2019 4:55 AM EDT documented in this encounter Results * (ABNORMAL) AUTOMATED DIFFERENTIAL ([facility] BKR DATA CONV) (04/05/2019 4:55 AM EDT) Neut% 84.9(H) 34.0 - 71.0 % 04/05/2019 9:05 AM EDT Lymph% 7.7(L) 19.3 - 53.0 % 04/05/2019 9:05 AM EDT [place]% 6.0 4.7 - 12.5 % 04/05/2019 9:05 AM EDT Eos% 0.4(L) 1.0 - 7.0 % 04/05/2019 9:05 AM EDT Baso% 0.2 0.0 - 1.0 % 04/05/2019 9:05 AM EDT IG% 1 0 - 1 % 04/05/2019 9:05 AM EDT Neut# 16.06(H) 1.56 - 6.13 K/uL 04/05/2019 9:05 AM EDT Lymph# 1.46 1.18 - 3.74 K/uL 04/05/2019 9:05 AM EDT [place]# 1.14(H) 0.24 - 0.82 K/uL 04/05/2019 9:05 AM EDT Eos# 0.07 0.04 - 0.54 K/uL 04/05/2019 9:05 AM EDT Baso# 0.04 0.01 - 0.08 K/uL 04/05/2019 9:05 AM EDT IG# 0 0 - 0 x10(3)/uL 04/05/2019 9:05 AM EDT Blood 04/05/2019 4:55 AM EDT 04/05/2019 9:00 AM EDT Narrative [facility] - 04/05/2019 9:19 AM EDT Added by Discern Expert us Sle Historical Provider LAB BLOOD ORDERABLES Fi nal Result [facility] [address] [phone] documented in this encounter Visit Diagnoses Not on filedocumented in this encounter
--- OUTSIDE RECORDS SUMMARY | 2024-06-26 16:09 | XMS_ITS | Encounter Summary ---
Author Organization [employer] Address [address] [place] [address] Care Team Providers Care Manager Msw Name Role Phone Unavailable Primary Care Provider Unavailabl e Encounter Details Date Type Department Care Team (Late st Contact Info) Description 04/05/2019 Transcribed Document [facility] [place] [facility] [place] [address] ProviderVineet MD [facility] [place] [address] Social History Tobacco Use Types Packs/Day Years Used Date Smoking Tobacco: Never Assessed Comments Unknown Sex and Gender Information Value Date Recorded Sex Assigned at Not on file Legal Sex Female 3:37 PM CDT Gender Identity Not on file Sexual Orientation Not on file documented as of this encounter Miscellaneous Notes * Cerner Conversion Note - Vineet Fitzgerald MD - 04/05/2019 12:02 PM CDT Patient: PAT MURPYH Age: 29 Years Sex: Female : 1990 Chief Complaint: PPD0 Subjective pain well controlled, bleeding >menses but no clotting. breast/bottlefeeding. Review of Systems ros neg except where noted Objective Vitals & Measurements vs wnl, afebrile General: nad Breast: nontender Cardiovascular: reg rate Lungs: unlabored Abdomen: fundus firm, nl lochia Ext: no edema or calf pain Incision/Episiotomy/Lac: Assessment/Plan routine pp care 1. Encourage ambulation/incentive spirometry every 15 minutes 2. DVT Prophylaxis 3. Tobacco abuse assessment: Smoker Yes(_)/No(_), If yes, plan: 4. control discussion and choice: 5. Feeding choice: 6. Vaccinations: 7. Return appointment: 8. depression follow-up plan: 9. Two hour OGTT scheduled for 6 week visit: Yes(_)/No(_) Infant Data [place] (_) NICU (_) Medications Inpatient Adacel (Tdap), 0.5 mL, IntraMuscular, 1-Time aluminum hydroxide/magnesium hydroxide/simethicone 200 mg-200 mg-20 mg/5 mL oral suspension, 30 mL, Oral, Q8H, PRN aluminum hydroxide/magnesium hydroxide/simethicone 200 mg-200 mg-20 mg/5 mL oral suspension, 30 mL, Oral, Q4H, PRN Ambien, 5 mg= 1 Tab, Oral, At Bedtime, PRN Ambien, 5 mg= 1 Tab, Oral, At Bedtime, PRN Benadryl, 50 mg= 2 Tab, Oral, Q6H, PRN Brethine, 0.25 mg= 0.25 mL, SubCutaneous, Q20Min, PRN Colace, 100 mg= 1 Cap, Oral, Q12H, PRN Dermoplast 20% topical spray, 1 [place], Topical, Q4H, PRN Habitrol 14 mg/24 hr transdermal film, extended release, 1 Patch, TransDermal, Daily Hemabate, 250 mcg= 1 mL, IntraMuscular, 1-Time, PRN Hemabate, 250 mcg= 1 mL, IntraMuscular, 1-Time hydrocortisone-pramoxine 1%-1% rectal cream, 1 Application, Rectal, Q4H, PRN ibuprofen, 600 mg= 1 Tab, Oral, Q6H Lactated Ringers Injection intravenous solution 1,000 mL, 1000 mL, IntraVENous lanolin topical ointment, 1 Application, Topical, See Comment, PRN measles/mumps/rubella virus vaccine, 0.5 mL, SubCutaneous, 1-Time Mylicon, 80 mg= 1 Tab, Chew, Q4H, PRN nalbuphine, 10 mg= 1 mL, IV Push, Q3H, PRN Normal Saline Flush, 10 mL, IV Push, See Comment, PRN oxytocin 20 Units + PDLR 1,000 mL oxytocin injection 20 Units + Lactated Ringers Premix Diluent 1,000 mL oxytocin injection 20 Units [0.2 Units/Hr] + Lactated Ringers Premix Diluent 1,000 mL Pepcid, 20 mg= 2 mL, IV Push, Q12H, PRN Pepcid, 20 mg= 1 Tab, Oral, Q12H, PRN Percocet 5/325 oral tablet, 1 Tab, Oral, Q4H, PRN Percocet 5/325 oral tablet, 2 Tab, Oral, Q4H, PRN Phenergan, 12.5 mg= 0.5 mL, IV Push, Q6H, PRN Phenergan, 12.5 mg= 0.5 mL, IV Push, Q6H, PRN Pitocin, 10 Units= 1 mL, IntraMuscular, 1-Time, PRN Multivitamins oral tablet, 1 Tab, Oral, Daily Rhophylac, 1500 Units= 2 mL, IntraMuscular, 1-Time Senokot S, 1 Tab, Oral, BID Tucks 50% topical pad, 1 Each, Topical, See Comment, PRN Tylenol, 650 mg= 2 Tab, Oral, Q4H, PRN Tylenol, 1000 mg= 2 Tab, Oral, Q8H, PRN Zofran, 4 mg= 2 mL, IV Push, Q4H, PRN Zofran, 4 mg= 2 mL, IV Push, Q4H, PRN Zofran, 4 mg= 1 Tab, Oral, Q4H, PRN Home [employer] KwikPen 100 units/mL injectable solution, 36 Units, SubCutaneous, TID With Meals Lantus Solostar Pen 100 units/mL subcutaneous solution, 91 Units, SubCutaneous, At Bedtime levothyroxine, 50 mcg, Daily Multivitamins oral tablet Problem List/Past Medical History Ongoing No qualifying data Historical No qualifying data Lab Results APR 03 23:57 137 107 12 / H 128 3.6 21 0.62 \ documented in this encounter Plan of Treatment Not on file documented as of this encounter Visit Diagnoses Not on filedocumented in this encounter
--- OUTSIDE RECORDS SUMMARY | 2024-06-26 16:09 | XMS_ITS | Encounter Summary ---
Author Organization [employer] Address [address] [place] [address] Care Team Providers Care Political Science Instructor Name Role Phone Unavailable Primary Care Provider Unavailabl e Encounter Details Date Type Department Care Team (Late st Contact Info) Description 04/03/2019 Historic Encounter [facility] [address] [place] [address] ProviderLeanne Historical Social History Tobacco Use Types Packs/Day [...] Procedure Name Priority Date/Time Associated Diagnosis Comments ANTIBODY SCREEN ([place] BKR) Routine 04/03/2019 11:57 PM EDT documented in this encounter Results * Antibody Screen (04/03/2019 11:57 PM EDT) Method PeG 04/04/2019 4:21 AM EDT SC1IS 0 04/04/2019 4:21 AM EDT SC2IS 0 04/04/2019 4:21 AM EDT SC3IS NT 04/04/2019 4:21 AM EDT SC137 0 04/04/2019 4:58 AM EDT SC237 0 04/04/2019 4:58 AM EDT SC337 NT 04/04/2019 4:21 AM EDT SC1 AHG 0 04/04/2019 4:58 AM EDT SC2 AHG 0 04/04/2019 4:58 AM EDT SC3 AHG NT 04/04/2019 4:21 AM EDT SC1CC 2+ 04/04/2019 4:58 AM EDT SC2CC 2+ 04/04/2019 4:58 AM EDT SC3CC NT 04/04/2019 4:21 AM EDT Antibody Screen (Tube) Negative ABSC 04/04/2019 4:58 AM EDT Blood 04/03/2019 11:5 7 PM EDT 04/04/2019 4:03 AM EDT [facility] Historical Provider [facility] BLOOD BANK TEST ORD ERABLES Final Result [facility] [address] [phone] documented in this encounter Visit Diagnoses Not on filedocumented in this encounter
--- OUTSIDE RECORDS SUMMARY | 2024-06-26 16:09 | XMS_ITS | Encounter Summary ---
Author Organization [employer] Address [address] [place] [id number] Care Team Providers Care Grade Recorder Name Role Phone Unavailable Primary Care Provider Unavailabl e Encounter Details Date Type Department Care Team (Late st Contact Info) Description 03/29/2019 Transcribed Document [facility] [place] [facility] [place] [address] ProviderVineet MD [facility]ly [facility] [place] [address] Social History Tobacco Use Types Packs/Day Years Used Date Smoking Tobacco: Never Assessed Comments Unknown Sex and Gender Information Value Date Recorded Sex Assigned at Not on file Legal Sex Female 3:37 PM CDT Gender Identity Not on file Sexual Orientation Not on file documented as of this encounter Miscellaneous Notes * Cerner Conversion Note - Vineet Fitzgerald MD - 03/29/2019 8:46 PM CDT [place] [id number] PAT MURPHY SERGIO :1990 Visit Time:03/29/2019 Your Visit Summary Your Care Team Admitting Physician - LAUREN ESCOBAR MD-OBG Attending Physician - LAUREN ESCOBAR MD-OBG Primary Care Physician - LAURNE ESCOBAR MD-OBG Referring Physician - LAUREN ESCOBAR MD-OBG Your Diagnosis 37 weeks gestation of Decreased movement in Morbid obesity Gestational diabetes mellitus Encounter for supervision of normal first , unspecified trimester, Encounter for supervision of normal first , unspecified trimester Discharge Vitals Temperature 36.8 ??C Respiratory Rate 18 Blood Pressure 121/59 What to do next Instructions From Your Care Team Diet after Discharge: _ Drink at least 8-10 glasses of water a day Blood Glucose Monitoring:Type I- monitor 4 times per day; before breakfast and before meals Activity After Discharge:As tolerated,_,_,_ Driving after Discharge:May drive today Showering Bathing:May Shower,_,_ Antepartum, Notify Provider of: Vaginal bleeding like a period Decreased baby movement Temperature greater than 101 degrees Fahrenheit Leaking fluid or water is broken Mental or mood changes Weight up more than 2 pounds a day or more than 5 pounds in a week When to go to the Emergency Room or call 911: Shortness of breath or chest pain Unable to reach provider Wound/Incision Care After Discharge: Keep operative site/wound site clean and dry Remove remaining steri-strips after 7-10 days Change dressing with dry dressing daily and as needed DO NOT change dressing, may reinforce as needed Medical Equipment for Home Use: Home Health Services: Community Services: Discharge Activity: Discharge Activity: Activity as tolerated Diet: Discharge Diet: Resume usual diet as tolerated Follow-Up Appointments Follow Up with LAUREN ESCOBAR MD When Within 2 to 3 days Comments Please keep previously scheduled appointment. Where: [address] [place] [address]- Medications What How Much When Instructions Next Dose insulin glargine (Lantus Solostar Pen 100 units/ mL subcutaneous solution) 91 Unit(s) SubCutaneous At Bedtime insulin lispro (HumaLOG KwikPen 100 units/ mL injectable solution) 36 Unit(s) SubCutaneous Three Times a Day With Meals levothyroxine 50 Microgram(s) Every Day multivitamin, ( Multivitamins oral tablet) Take your medications faithfully. Do NOT skip medication. Do NOT stop taking medications without the direction of a physician. Carry a list of your medications with you at all times, and take this medication list with you to your first follow up visit. Report any side effects. Avoid herbal remedies unless discussed with your physician. As part of your treatment plan, your physician may have prescribed a limited course of a controlled substance. This medication may be given to help people with moderate or severe pain or for other medical conditions, but there are risks involved with treatment. Common side effects may include nausea, constipation, drowsiness, sweating, itching, dry mouth, and rash. More serious side effects may include cognitive and motor impairment, like problems with thinking, concentrating, alertness, and movement (e.g. slowed reflexes), and driving and operating heavy machinery can be dangerous. It is important for you to talk to your physician if you have these side effects or questions. These controlled substances can produce physical dependence and be habit-forming if taken for an extended period of time, which means that the body has gotten used to them and may experience withdrawal symptoms if they are abruptly stopped. Withdrawal symptoms can include runny nose, sweating, goose bumps, diarrhea, abdominal cramping, rapid heartbeat, difficulty sleeping, and nervousness. Please dispose of unused and medications per your retail pharmacy guidance. Allergies ciprofloxacin (Hives) sulfa drugs (HIVES, HIVES) Education Materials Type 1 or Type 2 Diabetes Mellitus During , Self Care When you have type 1 or type 2 diabetes (diabetes mellitus), you must keep your blood sugar (glucose) in a healthy range. You can do this with: ??? Nutrition. ??? Exercise. ??? Lifestyle changes. ??? Insulin or medicines, if needed. ??? Support from your doctors and others. If diabetes is treated, it is unlikely to cause problems for the mother or baby. If it is not treated, it may cause problems that can be harmful to the mother and baby. How to stay aware of blood sugar ??? Check your blood sugar every day, as often as told. ??? Call your doctor if your blood sugar is above your goal numbers for 2 tests in a row. ??? Have your A1c (hemoglobin A1c) level checked at least two times a year. Have it checked more often if your doctor tells you to do that. Your doctor will set personal treatment goals for you. In general, you should have these blood sugar levels: ??? After not eating for a long time (fasting): 95 mg/dL (5.3 mmol/L). ??? After meals (postprandial): ? One hour after a meal: at or below 140 mg/dL (7.8 mmol/L). ? Two hours after a meal: at or below 120 mg/dL (6.7 mmol/L). ??? A1c level: 6???6.5%. How to manage high and low blood sugar Signs of high blood sugar High blood sugar is called hyperglycemia. Know the early signs of high blood sugar. Signs may include: ??? Feeling: ? Thirsty. ? Hungry. ? Very tired. ??? Needing to pee (urinate) more than usual. ??? Blurry vision. Signs of low blood sugar Low blood sugar is called hypoglycemia. This is when blood sugar is at or below 70 mg/dL (3.9 mmol/L). Signs may include: ??? Feeling: ? Hungry. ? Worried or nervous (anxious). ? Sweaty and clammy. ? Confused. ? Dizzy. ? Sleepy. ? Sick to your stomach (nauseous). ??? Having: ? A fast heartbeat. ? A headache. ? A change in your vision. ? Tingling or no feeling (numbness) around your mouth, lips, or tongue. ? Jerky movements that you cannot control (seizure). ??? Having trouble with: ? Moving (coordination). ? Sleeping. ? Passing out (fainting). ? Getting upset easily (irritability). Treating low blood sugar To treat low blood sugar, eat or drink something sugary right away. If you can think clearly and swallow safely, follow the 15:15 rule: ??? Take 15 grams of a fast-acting carb (carbohydrate). Some fast-acting carbs are: ? 1 tube of glucose gel. ? 3 sugar tablets (glucose pills). ? 6???8 pieces of hard candy. ? 4 oz (120 mL) of fruit juice. ? 4 oz (120 mL) of regular (not diet) soda. ??? Check your blood sugar 15 minutes after you take the carb. ??? If your blood sugar is still at or below 70 mg/dL (3.9 mmol/L), take 15 grams of a carb again. ??? If your blood sugar does not go above 70 mg/dL (3.9 mmol/L) after 3 tries, get help right away. ??? After your blood sugar goes back to normal, eat a meal or a snack within 1 hour. Treating very low blood sugar If your blood sugar is at or below 54 mg/dL (3 mmol/L), you have very low blood sugar (severe hypoglycemia). This is an emergency. Do not wait to see if the symptoms will go away. Get medical help right away. Call your local emergency services (911 in the [place] If you have very low blood sugar and you cannot eat or drink, you may need a glucagon shot (injection). A family member or friend should learn how to check your blood sugar and how to give you a glucagon shot. Ask your doctor if you need to have a glucagon shot kit at home. Follow these instructions at home: Medicine ??? Take insulin and diabetes medicines as told. ??? If your doctor says you should take more or less insulin and medicines, do this exactly as told. ??? Do not run out of insulin or medicines. Having diabetes can put you at risk for other long-term conditions. These include heart disease and kidney disease. Your doctor may prescribe medicines to prevent these problems. Food ??? Make healthy food choices. These include: ? Chicken, fish, egg whites, and beans. ? Oats, whole wheat, bulgur, brown rice, quinoa, and millet. ? Fresh fruits and vegetables. ? Low-fat dairy products. ? Nuts, avocado, olive oil, and canola oil. ??? Meet with a food service agent (dietitian). He or she can help you make an eating plan that is right for you. ??? Follow instructions from your doctor about what you cannot eat or drink. ??? Drink enough fluid to keep your pee (urine) pale yellow. ??? Eat healthy snacks between healthy meals. ??? Keep track of the carbs you eat. Do this by reading food labels and learning food serving sizes. ??? Follow your sick day plan when you cannot eat or drink normally. Make this plan with your doctor so it is ready to use. Activity ??? Exercise for 30 minutes or more a day during your or as much as told by your doctor. ??? Talk with your doctor before you start a new exercise or activity. Your doctor may need to tell you to change: ? How much insulin or medicines you take. ? How much food you eat. Lifestyle ??? Do not drink alcohol. ??? Do not use any tobacco products, such as cigarettes, chewing tobacco, and e-cigarettes. If you need help quitting, ask your doctor. ??? Learn how to deal with stress. If you need help with this, ask your doctor. Body care ??? Stay up to date with your shots (immunizations). ??? Get an eye exam during your first trimester. ??? Check your skin and feet every day. Check for cuts, bruises, redness, blisters, or sores. ??? Get regular foot exams as told by your doctor. ??? Clements your teeth and gums two times a day. Floss one or more times a day. ??? Go to the dentist one or more times every 6 months. ??? Stay at a healthy weight during your . General instructions ??? Take uyeu-ang-rorjzda and prescription medicines only as told by your doctor. ??? Talk with your doctor about your risk for high blood pressure during (preeclampsia or eclampsia). ??? Share your diabetes care plan with: ? Your work or school. ? People you live with. ??? Check your pee for ketones: ? When you are sick. ? As told by your doctor. ??? Carry a card or wear jewelry that says that you have diabetes. ??? Keep all follow-up visits with your doctor. This is important. Questions to ask your doctor ??? Do I need to meet with a grinder brake lining? Where can I find a support group for people with diabetes? Where to find more information To learn more about diabetes, visit: ??? [place] [employer]: www.diabetes.org ??? [place] [employer] Diabetes Educators (AADE): www.diabeteseducator.org Summary ??? When you have type 1 or type 2 diabetes (diabetes mellitus), you must keep your blood sugar (glucose) in a healthy range. ??? Check your blood sugar every day, as often as told. ??? Take insulin and diabetes medicines as told. ??? Keep all follow-up visits as told by your doctor. This is important. This information is not intended to replace advice given to you by your health care provider. Make sure you discuss any questions you have with your health care provider. Document Released: 11/01/2016 Document Revised: 02/28/2018 Document Reviewed: 08/13/2016 [employer] Interactive Patient Education ?? 2019 [employer] Third Trimester of The third trimester is from week 28 through week 40 (months 7 through 9). This trimester is when your unborn baby (fetus) is growing very fast. At the end of the ninth month, the unborn baby is about 20 inches in length. It weighs about 6???10 pounds. Follow these instructions at home: Medicines ??? Take sogz-iwb-csxncjl and prescription medicines only as told by your doctor. Some medicines are safe and some medicines are not safe during . ??? Take a vitamin that contains at least 600 micrograms (mcg) of folic acid. ??? If you have trouble pooping (constipation), take medicine that will make your stool soft (stool softener) if your doctor approves. Eating and drinking ??? Eat regular, healthy meals. ??? Avoid raw meat and uncooked cheese. ??? If you get low calcium from the food you eat, talk to your doctor about taking a daily calcium supplement. ??? Eat four or five small meals rather than three large meals a day. ??? Avoid foods that are high in fat and sugars, such as fried and sweet foods. ??? To prevent constipation: ? Eat foods that are high in fiber, like fresh fruits and vegetables, whole grains, and beans. ? Drink enough fluids to keep your pee (urine) clear or pale yellow. Activity ??? Exercise only as told by your doctor. Stop exercising if you start to have cramps. ??? Avoid heavy lifting, wear low heels, and sit up straight. ??? Do not exercise if it is too hot, too humid, or if you are in a place of great height (high altitude). ??? You may continue to have sex unless your doctor tells you not to. Relieving pain and discomfort ??? Wear a good support bra if your breasts are tender. ??? Take frequent breaks and rest with your legs raised if you have leg cramps or low back pain. ??? Take warm water baths (sitz baths) to soothe pain or discomfort caused by hemorrhoids. Use hemorrhoid cream if your doctor approves. ??? If you develop puffy, bulging veins (varicose veins) in your legs: ? Wear support hose or compression stockings as told by your doctor. ? Raise (elevate) your feet for 15 minutes, 3???4 times a day. ? Limit salt in your food. Safety ??? Wear your seat belt when driving. ??? Make a list of emergency phone numbers, including numbers for family, friends, the hospital, and police and fire departments. Preparing for your baby's arrival To prepare for the arrival of your baby: ??? Take classes. ??? Practice driving to the hospital. ??? Visit the hospital and tour the maternity area. ??? Talk to your work about taking leave once the baby comes. ??? Pack your hospital bag. ??? Prepare the baby's room. ??? Go to your doctor visits. ??? Buy a rear-facing car seat. Learn how to install it in your car. General instructions ??? Do not use hot tubs, steam rooms, or saunas. ??? Do not use any products that contain nicotine or tobacco, such as cigarettes and e-cigarettes. If you need help quitting, ask your doctor. ??? Do not drink alcohol. ??? Do not douche or use tampons or scented sanitary pads. ??? Do not cross your legs for long periods of time. ??? Do not travel for long distances unless you must. Only do so if your doctor says it is okay. ??? Visit your dentist if you have not gone during your . Use a soft toothbrush to brush your teeth. Be gentle when you floss. ??? Avoid cat litter boxes and soil used by cats. These carry germs that can cause defects in the baby and can cause a loss of your baby (miscarriage) or stillbirth. ??? Keep all your visits as told by your doctor. This is important. Contact a doctor if: ??? You are not sure if you are in labor or if your water has broken. ??? You are dizzy. ??? You have mild cramps or pressure in your lower belly. ??? You have a nagging pain in your belly area. ??? You continue to feel sick to your stomach, you throw up, or you have watery poop. ??? You have bad smelling fluid coming from your vagina. ??? You have pain when you pee. Get help right away if: ??? You have a fever. ??? You are leaking fluid from your vagina. ??? You are spotting or bleeding from your vagina. ??? You have severe belly cramps or pain. ??? You lose or gain weight quickly. ??? You have trouble catching your breath and have chest pain. ??? You notice sudden or extreme puffiness (swelling) of your face, hands, ankles, feet, or legs. ??? You have not felt the baby move in over an hour. ??? You have severe headaches that do not go away with medicine. ??? You have trouble seeing. ??? You are leaking, or you are having a gush of fluid, from your vagina before you are 37 weeks. ??? You have regular belly spasms (contractions) before you are 37 weeks. Summary ??? The third trimester is from week 28 through week 40 (months 7 through 9). This time is when your unborn baby is growing very fast. ??? Follow your doctor's advice about medicine, food, and activity. ??? Get ready for the arrival of your baby by taking classes, getting all the baby items ready, preparing the baby's room, and visiting your doctor to be checked. ??? Get help right away if you are bleeding from your vagina, or you have chest pain and trouble catching your breath, or if you have not felt your baby move in over an hour. This information is not intended to replace advice given to you by your health care provider. Make sure you discuss any questions you have with your health care provider. Document Released: 10/05/2010 Document Revised: 08/16/2017 Document Reviewed: 08/16/2017 [employer] Interactive Patient Education ?? 2019 [employer] Movement Counts Patient Name: Patient Due Date: What is a movement count? A movement count is the number of times that you feel your baby move during a certain amount of time. This may also be called a kick count. A movement count is recommended for every woman. You may be asked to start counting movements as early as week 28 of your . Pay attention to when your baby is most active. You may notice your baby's sleep and wake cycles. You may also notice things that make your baby move more. You should do a movement count: ??? When your baby is normally most active. ??? At the same time each day. A good time to count movements is while you are resting, after having something to eat and drink. How do I count movements? 1. Find a quiet, comfortable area. Sit, or lie down on your side. 2. Write down the date, the start time and stop time, and the number of movements that you felt between those two times. Take this information with you to your health care visits. 3. For 2 hours, count kicks, flutters, swishes, rolls, and jabs. You should feel at least 10 movements during 2 hours. 4. You may stop counting after you have felt 10 movements. 5. If you do not feel 10 movements in 2 hours, have something to eat and drink. Then, keep resting and counting for 1 hour. If you feel at least 4 movements during that hour, you may stop counting. Contact a health care provider if: ??? You feel fewer than 4 movements in 2 hours. ??? Your baby is not moving like he or she usually does. Date: Start time: Stop time: Movements: Date: Start time: Stop time: Movements: Date: Start time: Stop time: Movements: Date: Start time: Stop time: Movements: Date: Start time: Stop time: Movements: Date: Start time: Stop time: Movements: Date: Start time: Stop time: Movements: Date: Start time: Stop time: Movements: Date: Start time: Stop time: Movements: This information is not intended to replace advice given to you by your health care provider. Make sure you discuss any questions you have with your health care provider. Document Released: 08/10/2007 Document Revised: 03/09/2017 Document Reviewed: 08/19/2016 [employer] Interactive Patient Education ?? 2019 [employer] Emergency Awareness and Preventative Care STROKE is an EMERGENCY Every Minute Counts Act FAST and Check for these signs: FACE Does the face look uneven? ARM Does one arm drift down? SPEECH Does their speech sound strange? TIME Call at any sign of stroke Stroke Risk Factors Atrial Fibrillation (irregular heartbeat) Diabetes Family history of stroke Heart Disease Heavy alcohol use High Blood Pressure High Cholesterol Physical inactivity and obesity Smoking Cigarette Smoking The facts are clear, cigarette smoking will shorten your life. Smoking can cause many illnesses along the way. As a healthcare provider, we recommend that you stop smoking. Assistance with quitting is available by contacting 1-405-ZLTD-NOW. This is a free resource providing counseling, support, and referral. Or you may contact your personal physician. National Suicide Prevention Lifeline: The National Suicide Prevention Lifeline is a national network of local crisis centers that provides free and confidential emotional support to people in suicidal crisis or emotional distress 24 hours a day, 7 days a week. Don't Wait! Stop a Heart Attack Before it Starts What is a heart attack? A heart attack is damage or to a part of the heart from severely decreased or lack of blood flow to the heart. Over time, arteries can become narrow from the buildup of fat and cholesterol, which is called plaque. The plaque can rupture causing a blood clot to form. When the blood clot forms, the artery can become severely narrowed or completely blocked, causing a heart attack. Heart attack is the leading cause of in the [place]. 85% of muscle damage occurs within the first 2 hours. Delay in the recognition of heart attack symptoms increases the chances of . Know the early symptoms of a heart attack: Nausea Feeling of fullness in chest Jaw Pain Pain that travels down one or both arms Fatigue/being tired Anxiety Back Pain Chest pressure, squeezing, or discomfort Shortness of breath Sweating, or a cold sweat Feeling of impending doom There are unusual signs of a heart attack, too! Women, the elderly, and diabetics may present with atypical symptoms: Fainting/dizziness Weakness Confusion Risk Factors for a Heart Attack Some heart disease risk factors, such as age and family history, cannot be changed. Others, like smoking and lack of exercise, can be changed. Smoking High Cholesterol High Blood Pressure Family History Obesity Age Gender (Males are at higher risk) Lack of Exercise Diabetes Diet Stress Excessive Alcohol Intake If you or someone you know is experiencing the signs and symptoms of a heart attack, DON???T DELAY. Call immediately and seek help. If someone collapses, perform CPR! Do not attempt to drive if you are having symptoms of heart attack. Hands-Only CPR Why Hands-Only CPR? Hands-Only CPR has been shown to be as effective as conventional CPR for cardiac arrests that occur outside of a hospital. Survival depends on immediately receiving CPR from someone nearby. How do you perform Hands-Only CPR? There are two easy steps: Call 9-1-1 if you see a teen or adult collapse Push hard and fast in the center of the chest at a beat of 100 beats per minute. Save a life! 4 WAYS TO GET AHEAD OF SEPSIS SEPSIS is a MEDICAL EMERGENCY. Time matters! Infections put you and your family at risk for a life-threatening condition called sepsis. Sepsis is the body's extreme response to an infection. It is life-threatening, and without timely treatment, sepsis can rapidly lead to tissue damage, organ failure, and . Sepsis happens when an infection you already have-in your skin, lungs, urinary tract or somewhere else-triggers a chain reaction throughout your body. 1 PREVENT INFECTIONS Take good care of chronic conditions. Talk to your doctor about getting the recommended vaccines. 2 PRACTICE GOOD HYGIENE Wash your hands frequently. Keep cuts or open sores clean and covered until they are healed. 3 KNOW THE SYMPTOMS Confusion or disorientation Shortness of breath High heart rate Fever, shivering, or feeling very cold Extreme pain or discomfort Clammy or sweaty skin 4 ACT FAST Get medical care IMMEDIATELY if you suspect sepsis or if you have an infection that is not getting better or is getting worse. To learn more about sepsis and how to prevent infections, visit www.cdc.gov/sepsis. Test Results Laboratory or Other Results This Visit (last charted value for your 03/29/2019 visit) General Chemistry 03/29/19 20:15:00 Glucose POC2: 72 mg/dL -- Normal range between ( 70 and 110 ) Patient Name:PAT MURPHY I have received and understand this information and was given the opportunity to ask questions. Patient/Photography Instructor Name: Patient/Photography Instructor Signature: Relationship to Patient: Clinician/Hospital Photography Instructor Signature: Date: Electronically signed by Vladimir, [facility] Conversion Client Development Consultant Juanita at 11/12/2022 2:44 PM CDT documented in this encounter Plan of Treatment Not on file documented as of this encounter Visit Diagnoses Not on filedocumented in this encounter
--- OUTSIDE RECORDS SUMMARY | 2024-06-26 16:09 | XMS_ITS | Encounter Summary ---
Author Organization [email or web address] Address [address] [place] [address] Care Team Providers Care Natural Resource Economist Name Role Phone Unavailable Primary Care Provider Unavailabl e Encounter Details Date Type Department Care Team (Late st Contact Info) Description 03/27/2019 Transcribed Document [facility] [place] [address] [place] [address] ProviderVineet MD [address] [place] [address] Social History Tobacco Use Types Packs/Day Years Used Date Smoking Tobacco: Never Assessed Comments Unknown Sex and Gender Information Value Date Recorded Sex Assigned at Not on file Legal Sex Female 3:37 PM CDT Gender Identity Not on file Sexual Orientation Not on file documented as of this encounter Miscellaneous Notes * [employer]ner Conversion Note - Vineet Fitzgerald MD - 03/27/2019 2:45 PM CDT Patient Education Materials Follows: Third Trimester of The third trimester is from week 28 through week 40 (months 7 through 9). This trimester is when your unborn baby (fetus) is growing very fast. At the end of the ninth month, the unborn baby is about 20 inches in length. It weighs about 6?10 pounds. Follow these instructions at home: Medicines ??? Take bswr-pth-zxodexs and prescription medicines only as told by [...] Raise (elevate) your feet for 15 minutes, 3?4 times a day. ? Limit salt in [...] 10/05/2010 Document Revised: 08/16/2017 Document Reviewed: 08/16/2017 [employer] Interactive Patient Education ? 2019 [employer] Gestational Diabetes Mellitus, Diagnosis Gestational diabetes (gestational diabetes mellitus) is a short-term (temporary) form of diabetes that can happen during . It goes away after you give . It may be caused by one or both of these problems: ??? Your pancreas does not make enough of a hormone called insulin. ??? Your body does not respond in a normal way to insulin that it makes. Insulin lets sugars (glucose) go into cells in the body. This gives you energy. If you have diabetes, sugars cannot get into cells. This causes high blood sugar (hyperglycemia). If you get gestational diabetes, you are: ??? More likely to get it if you get again. ??? More likely to develop type 2 diabetes in the future. If gestational diabetes is treated, it may not hurt you or your baby. Your doctor will set treatment goals for you. In general, you should have these blood sugar levels: ??? After not eating for a long time (fasting): 95 mg/dL (5.3 mmol/L). ??? After meals (postprandial): ? One hour after a meal: at or below 140 mg/dL (7.8 mmol/L). ? Two hours after a meal: at or below 120 mg/dL (6.7 mmol/L). ??? A1c (hemoglobin A1c) level: 6?6.5%. Follow these instructions at home: Questions to ask your doctor ??? You may want to ask these questions: ? Do I need to meet with a egg tester? ? What equipment will I need to care for myself at home? ? What medicines do I need? When should I take them? ? How often do I need to check my blood sugar? ? What number can I call if I have questions? ? When is my next doctor's visit? General instructions ??? Take ogsb-fuw-iepsjhr and prescription medicines only as told by your doctor. ??? Stay at a healthy weight during . ??? Keep all follow-up visits as told by your doctor. This is important. Contact a doctor if: ??? Your blood sugar is at or above 240 mg/dL (13.3 mmol/L). ??? Your blood sugar is at or above 200 mg/dL (11.1 mmol/L) and you have ketones in your pee (urine). ??? You have been sick or have had a fever for 2 days or more and you are not getting better. ??? You have any of these problems for more than 6 hours: ? You cannot eat or drink. ? You feel sick to your stomach (nauseous). ? You throw up (vomit). ? You have watery poop (diarrhea). Get help right away if: ??? Your blood sugar is lower than 54 mg/dL (3 mmol/L). ??? You get confused. ??? You have trouble: ? Thinking clearly. ? Breathing. ??? Your baby moves less than normal. ??? You have any of these: ? Moderate or large ketone levels in your pee. ? Blood coming from your vagina. ? Unusual fluid coming from your vagina. ? Early contractions. These may feel like tightness in your belly. Summary ??? Gestational diabetes is a short-term form of diabetes. It can happen while you are . It goes away after you give . ??? If gestational diabetes is treated, it may not hurt you or your baby. Your doctor will set treatment goals for you. ??? Keep all follow-up visits as told by your doctor. This is important. This information is not intended to replace advice given to you by your health care provider. Make sure you discuss any questions you have with your health care provider. Document Released: 11/01/2016 Document Revised: 03/06/2018 Document Reviewed: 08/13/2016 [employer] Interactive Patient Education ? 2019 [employer] Electronically signed by Shereen Gilbert Conversion Operating Room Surgical Technician Cerner at 11/12/2022 2:47 PM CDT documented in this encounter Plan of Treatment Not on file documented as of this encounter Visit Diagnoses Not on filedocumented in this encounter
--- OUTSIDE RECORDS SUMMARY | 2024-06-26 16:09 | XMS_ITS | Encounter Summary ---
Author Organization [employer] Address [address] [place] [address] Care Team Providers Care Marine Engineer Cpvec Name Role Phone Unavailable Primary Care Provider Unavailabl e Encounter Details Date Type Department Care Team (Late st Contact Info) Description 04/07/2019 Transcribed Document [facility] [place] [address] [place] [address] ProviderVineet MD [facility] [place] [address] Social History Tobacco Use Types Packs/Day Years Used Date Smoking Tobacco: Never Assessed Comments Unknown Sex and Gender Information Value Date Recorded Sex Assigned at Not on file Legal Sex Female 3:37 PM CDT Gender Identity Not on file Sexual Orientation Not on file documented as of this encounter Miscellaneous Notes * Cerner Conversion Note - Vineet Fitzgerald MD - 04/07/2019 4:27 PM CDT Nursing Discharge Summary Entered On: 04/07/2019 16:28 EDT Performed On: 04/07/2019 16:27 EDT by KALANI NI, cigarette package examiner Documentation Discharge Date/Time : 04/07/2019 14:20 EDT Patient Disposition, General : Discharge Discharge To : Home with ambulatory/outpatient follow-up KALANI NI, RN - 04/07/2019 16:27 EDT documented in this encounter Plan of Treatment Not on file documented as of this encounter Visit Diagnoses Not on filedocumented in this encounter
--- OUTSIDE RECORDS SUMMARY | 2024-06-26 16:09 | XMS_ITS | Encounter Summary ---
Author Organization [employer] Address [address] [place] [address] Care Team Providers Care Combatant Diver Officer Name Role Phone Unavailable Primary Care Provider Unavailabl e Encounter Details Date Type Department Care Team (Late st Contact Info) Description 04/04/2019 Transcribed Document [facility] [place] [address] [place] [address] ProviderVineet MD [address] [place] [address] Social History Tobacco Use Types Packs/Day Years Used Date Smoking Tobacco: Never Assessed Comments Unknown Sex and Gender Information Value Date Recorded Sex Assigned at Not on file Legal Sex Female 3:37 PM CDT Gender Identity Not on file Sexual Orientation Not on file documented as of this encounter Miscellaneous Notes * Cerner Conversion Note - Vineet ProviderMD - 04/04/2019 4:47 PM CDT Patient: PAT KERN Age: 29 Years Sex: Female : 1990 Pt comfy with epidural. VE 5/80/-2 head well applied to cervix during ctx fhrs 120s-130s, moderate variabiliyt, +accels, occ variable decels IUPC placed - tolerated well Will monitor for mvus and progress. If recurrent variable decels will consider amnioinfusion. documented in this encounter Plan of Treatment Not on file documented as of this encounter Visit Diagnoses Not on filedocumented in this encounter
--- OUTSIDE RECORDS SUMMARY | 2024-06-26 16:09 | XMS_ITS | Encounter Summary ---
Author Organization [employer] Address [address] [place] [id number] Care Team Providers Care Junior Art Director Name Role Phone Unavailable Primary Care Provider Unavailabl e Encounter Details Date Type Department Care Team (Late st Contact Info) Description 04/07/2019 Transcribed Document [facility] [place] Medicine [facility] [place] [address] ProviderVineet MD [facility] [place] [address] Social History Tobacco Use Types Packs/Day Years Used Date Smoking Tobacco: Never Assessed Comments Unknown Sex and Gender Information Value Date Recorded Sex Assigned at Not on file Legal Sex Female 3:37 PM CDT Gender Identity Not on file Sexual Orientation Not on file documented as of this encounter Miscellaneous Notes * Cerner Conversion Note - Vineet Fitzgerald MD - 04/07/2019 1:08 PM CDT [place] [id number] PAT MURPHY SERGIO :1990 Visit Time:04/03/2019 Your Visit Summary Your Care Team Admitting Physician - Cha Osorio, Peer Health Promoter LAUREN ESCOBAR MD-OBG Attending Physician - Cha Osorio, Peer Health Promoter LAUREN ESCOBAR MD-OBG Primary Care Physician - KLEBER GREENE (REF)[facility] Referring Physician - Cha Osorio, Peer Health Promoter LAUREN ESCOBAR MD-OBG Your Diagnosis Spontaneous vaginal delivery What to do next Instructions From Your Care Team Diet after Discharge: Resume usual diet as tolerated Drink at least 8-10 glasses of water a day Do not drink any alcoholic beverages Add 500 extra calories daily if Eat a 1-2 carbohydrate snack before or during Activity After Discharge:As tolerated,Rest and relax today,No strenuous activities,Nothing in the vagina for 6 weeks Lifting Restrictions:No lifting over 10 pounds for 1 week Minimize Stair Climbing Discuss Exercise with your physician Driving after Discharge:No driving while on pain medication May Return to Work: After 6 week follow up Showering Bathing:May Shower,No tub, soaking or swimming for 2 weeks Breast Care: Wear supportive bras as much as possible Place ice packs on breasts to help decrease swelling Avoid applying heat to breasts If nipple soreness occurs, rub colostrum (breastmilk) or a pea-sized amount of lanolin on nipples after feeding Practice self-breast exam monthly , Notify Provider of: Foul smelling vaginal discharge Temperature over 101 degrees Fahrenheit Signs of depression or anxiety that makes it hard for you to care for yourself or your baby Weight up more than 2 pounds a day or more than 5 pounds in a week Incision pulling apart Pass blood clots larger than a golf ball Sharp pain or redness in your legs Painful urination or feeling like you have to go to the bathroom all the time Have breast pain with fever and chills Excessive vomiting or diarrhea Vaginal bleeding greater than 1 pad per hour Pain is worsening and current pain medication is not adequate When to go to the Emergency Room or call 911: Shortness of breath or chest pain Unable to reach provider Discharge Activity: Discharge Activity: Activity as tolerated Diet: Discharge Diet: Resume usual diet as tolerated Follow-Up Appointments Follow Up with [facility] When Within 3 weeks Comments screening ppd Call for follow up appointment Where: [address] [place] [address]- Medications What How Much When Instructions Next Dose ibuprofen (ibuprofen 600 mg oral tablet) 1 Tablet(s) Oral Every 6 Hours Pickup at [facility] 04/07 6 pm levothyroxine 50 Microgram(s) Every Day 9/15 AM multivitamin, ( Multivitamins oral tablet) 9/15 AM Pharmacy Information [facility]: [address] [place] [phone] Take your medications faithfully. Do NOT skip [...] Allergies ciprofloxacin (Hives) sulfa drugs (HIVES, HIVES) Immunizations This Visit tetanus/diphtheria/pertussis, acel(Tdap) 04/06/2019 Education Materials and Mastitis Mastitis is inflammation of the breast tissue. It can occur in women who are . This can make painful. Mastitis will sometimes go away on its own, especially if it is not caused by an infection (non-infectious mastitis). Your health care provider will help determine if medical treatment is needed. Treatment may be needed if the condition is caused by a bacterial infection (infectious mastitis). What are the causes? This condition is often associated with a blocked milkduct, which can happen when too much milk builds up in the breast. Causes of excess milk in the breast can include: ??? Poor latch-on. If your baby is not latched onto the breast properly, he or she may not empty your breast completely while . ??? Allowing too much time to pass between feedings. ??? Wearing a bra or other clothing that is too tight. This puts extra pressure on the milk ducts so milk does not flow through them as it should. ??? Milk remaining in the breast because it is overfilled (engorged). ??? Stress and fatigue. Mastitis can also be caused by a bacterial infection. Bacteria may enter the breast tissue through cuts, cracks, or openings in the skin near the nipple area. Cracks in the skin are often caused when your baby does not latch on properly to the breast. What are the signs or symptoms? Symptoms of this condition include: ??? Swelling, redness, tenderness, and pain in an area of the breast. This usually affects the upper part of the breast, toward the armpit region. In most cases, it affects only one breast. In some cases, it may occur on both breasts at the same time and affect a larger portion of breast tissue. ??? Swelling of the glands under the arm on the same side. ??? Fatigue, headache, and flu-like muscle aches. ??? Fever. ??? Rapid pulse. Symptoms usually last 2 to 5 days. Breast pain and redness are at their worst on day 2 and day 3, and they usually go away by day 5. If an infection is left to progress, a collection of pus (abscess) may develop. How is this diagnosed? This condition can be diagnosed based on your symptoms and a physical exam. You may also have tests, such as: ??? Blood tests to determine if your body is fighting a bacterial infection. ??? Mammogram or ultrasound tests to rule out other problems or diseases. ??? Fluid tests. If an abscess has developed, the fluid in the abscess may be removed with a needle. The fluid may be analyzed to determine if bacteria are present. ??? Breast milk may be cultured and tested for bacteria. How is this treated? This condition will sometimes go away on its own. Your health care provider may choose to wait 24 hours after first seeing you to decide whether treatment is needed. If treatment is needed, it may include: ??? Strategies to manage . This includes continuing to breastfeed or pump in order to allow adequate milk flow, using breast massage, and applying heat or cold to the affected area. ??? Self-care such as rest and increased fluid intake. ??? Medicine for pain. ??? Antibiotic medicine to treat a bacterial infection. This is usually taken by mouth. ??? If an abscess has developed, it may be treated by removing fluid with a needle. Follow these instructions at home: Medicines ??? Take ywwt-jki-fcspxyh and prescription medicines only as told by your health care provider. ??? If you were prescribed an antibiotic medicine, take it as told by your health care provider. Do not stop taking the antibiotic even if you start to feel better. General instructions ??? Do not wear a tight or underwire bra. Wear a soft, supportive bra. ??? Increase your fluid intake, especially if you have a fever. ??? Get plenty of rest. For : ??? Continue to empty your breasts as often as possible, either by or using an electric breast pump. This will lower the pressure and the pain that comes with it. Ask your health care provider if changes need to be made to your or pumping routine. ??? Keep your nipples clean and dry. ??? During , empty the first breast completely before going to the other breast. If your baby is not emptying your breasts completely, use a breast pump to empty your breasts. ??? Use breast massage during feeding or pumping sessions. ??? If directed, apply moist heat to the affected area of your breast right before or pumping. Use the heat source that your health care provider recommends. ??? If directed, put ice on the affected area of your breast right after or pumping: ? Put ice in a plastic bag. ? Place a towel between your skin and the bag. ? Leave the ice on for 20 minutes. ??? If you go back to work, pump your breasts while at work to stay in time with your nursing schedule. ??? Do not allow your breasts to become engorged. Contact a health care provider if: ??? You have pus-like discharge from the breast. ??? You have a fever. ??? Your symptoms do not improve within 2 days of starting treatment. ??? Your symptoms return after you have recovered from a breast infection. Get help right away if: ??? Your pain and swelling are getting worse. ??? You have pain that is not controlled with medicine. ??? You have a red line extending from the breast toward your armpit. Summary ??? Mastitis is inflammation of the breast tissue. It is often caused by a blocked milk duct or bacteria. ??? This condition may be treated with hot and cold compresses, medicines, self-care, and certain strategies. ??? If you were prescribed an antibiotic medicine, take it as told by your health care provider. Do not stop taking the antibiotic even if you start to feel better. ??? Continue to empty your breasts as often as possible either by or using an electric breast pump. This information is not intended to replace advice given to you by your health care provider. Make sure you discuss any questions you have with your health care provider. Document Released: 11/05/2005 Document Revised: 07/12/2017 Document Reviewed: 07/12/2017 [employer] Patient Education ?? 2019 [employer]. Choosing to breastfeed is one of the best decisions you can make for yourself and your baby. A change in hormones during causes your breasts to make breast milk in your milk-producing glands. Hormones prevent breast milk from being released before your baby is born. They also prompt milk flow after . Once has begun, thoughts of your baby, as well as his or her sucking or crying, can stimulate the release of milk from your milk-producing glands. Benefits of Research shows that offers many health benefits for infants and mothers. It also offers a cost-free and convenient way to feed your baby. For your baby ??? Your first milk (colostrum) helps your baby's digestive system to function better. ??? Special cells in your milk (antibodies) help your baby to fight off infections. ??? Breastfed babies are less likely to develop asthma, allergies, obesity, or type 2 diabetes. They are also at lower risk for sudden syndrome (SIDS). ??? Nutrients in breast milk are better able to meet your baby???s needs compared to formula. ??? Breast milk improves your baby's brain development. For you ??? helps to create a very special cartwright between you and your baby. ??? is convenient. Breast milk costs nothing and is always available at the correct temperature. ??? helps to burn calories. It helps you to lose the weight that you gained during . ??? makes your uterus return faster to its size before . It also slows bleeding (lochia) after you give . ??? helps to lower your risk of developing type 2 diabetes, osteoporosis, rheumatoid arthritis, cardiovascular disease, and breast, ovarian, uterine, and endometrial cancer later in life. basics Starting ??? Find a comfortable place to sit or lie down, with your neck and back well-supported. ??? Place a pillow or a rolled-up blanket under your baby to bring him or her to the level of your breast (if you are seated). Nursing pillows are specially designed to help support your arms and your baby while you breastfeed. ??? Make sure that your baby's tummy (abdomen) is facing your abdomen. ??? Gently massage your breast. With your fingertips, massage from the outer edges of your breast inward toward the nipple. This encourages milk flow. If your milk flows slowly, you may need to continue this action during the feeding. ??? Support your breast with 4 fingers underneath and your thumb above your nipple (make the letter C with your hand). Make sure your fingers are well away from your nipple and your baby???s mouth. ??? Stroke your baby's lips gently with your finger or nipple. ??? When your baby's mouth is open wide enough, quickly bring your baby to your breast, placing your entire nipple and as much of the areola as possible into your baby's mouth. The areola is the colored area around your nipple. ? More areola should be visible above your baby's upper lip than below the lower lip. ? Your baby's lips should be opened and extended outward (flanged) to ensure an adequate, comfortable latch. ? Your baby's tongue should be between his or her lower gum and your breast. ??? Make sure that your baby's mouth is correctly positioned around your nipple (latched). Your baby's lips should create a seal on your breast and be turned out (everted). ??? It is common for your baby to suck about 2???3 minutes in order to start the flow of breast milk. Latching Teaching your baby how to latch onto your breast properly is very important. An improper latch can cause nipple pain, decreased milk supply, and poor weight gain in your baby. Also, if your baby is not latched onto your nipple properly, he or she may swallow some air during feeding. This can make your baby fussy. Burping your baby when you switch breasts during the feeding can help to get rid of the air. However, teaching your baby to latch on properly is still the best way to prevent fussiness from swallowing air while . Signs that your baby has successfully latched onto your nipple ??? Silent tugging or silent sucking, without causing you pain. Infant's lips should be extended outward (flanged). ??? Swallowing heard between every 3???4 sucks once your milk has started to flow (after your let-down milk reflex occurs). ??? Muscle movement above and in front of his or her ears while sucking. Signs that your baby has not successfully latched onto your nipple ??? Sucking sounds or smacking sounds from your baby while . ??? Nipple pain. If you think your baby has not latched on correctly, slip your finger into the corner of your baby???s mouth to break the suction and place it between your baby's gums. Attempt to start again. Signs of successful Signs from your baby ??? Your baby will gradually decrease the number of sucks or will completely stop sucking. ??? Your baby will fall asleep. ??? Your baby's body will relax. ??? Your baby will retain a small amount of milk in his or her mouth. ??? Your baby will let go of your breast by himself or herself. Signs from you ??? Breasts that have increased in firmness, weight, and size 1???3 hours after feeding. ??? Breasts that are softer immediately after . ??? Increased milk volume, as well as a change in milk consistency and color by the fifth day of . ??? Nipples that are not sore, cracked, or bleeding. Signs that your baby is getting enough milk ??? Wetting at least 1???2 diapers during the first 24 hours after . ??? Wetting at least 5???6 diapers every 24 hours for the first week after . The urine should be clear or pale yellow by the age of 5 days. ??? Wetting 6???8 diapers every 24 hours as your baby continues to grow and develop. ??? At least 3 stools in a 24-hour period by the age of 5 days. The stool should be soft and yellow. ??? At least 3 stools in a 24-hour period by the age of 7 days. The stool should be seedy and yellow. ??? No loss of weight greater than 10% of weight during the first 3 days of life. ??? Average weight gain of 4???7 oz (113???198 g) per week after the age of 4 days. ??? Consistent daily weight gain by the age of 5 days, without weight loss after the age of 2 weeks. After a feeding, your baby may spit up a small amount of milk. This is normal. frequency and duration Frequent feeding will help you make more milk and can prevent sore nipples and extremely full breasts (breast engorgement). Breastfeed when you feel the need to reduce the fullness of your breasts or when your baby shows signs of hunger. This is called on demand. Signs that your baby is hungry include: ??? Increased alertness, activity, or restlessness. ??? Movement of the head from side to side. ??? Opening of the mouth when the corner of the mouth or cheek is stroked (rooting). ??? Increased sucking sounds, smacking lips, cooing, sighing, or squeaking. ??? Tyrm-sd-sozsd movements and sucking on fingers or hands. ??? Fussing or crying. Avoid introducing a pacifier to your baby in the first 4-6 weeks after your baby is born. After this time, you may choose to use a pacifier. Research has shown that pacifier use during the first year of a baby's life decreases the risk of sudden syndrome (SIDS). Allow your baby to feed on each breast as long as he or she wants. When your baby unlatches or falls asleep while feeding from the first breast, offer the second breast. Because newborns are often sleepy in the first few weeks of life, you may need to awaken your baby to get him or her to feed. times will vary from baby to baby. However, the following rules can serve as a guide to help you make sure that your baby is properly fed: ??? Newborns (babies 4 weeks of age or younger) may breastfeed every 1???3 hours. ??? Newborns should not go without for longer than 3 hours during the day or 5 hours during the night. ??? You should breastfeed your baby a minimum of 8 times in a 24-hour period. Breast milk pumping Pumping and storing breast milk allows you to make sure that your baby is exclusively fed your breast milk, even at times when you are unable to breastfeed. This is especially important if you go back to work while you are still , or if you are not able to be present during feedings. Your communication consultant can help you find a method of pumping that works best for you and give you guidelines about how long it is safe to store breast milk. Caring for your breasts while you breastfeed Nipples can become dry, cracked, and sore while . The following recommendations can help keep your breasts moisturized and healthy: ??? Avoid using soap on your nipples. ??? Wear a supportive bra designed especially for nursing. Avoid wearing underwire-style bras or extremely tight bras (sports bras). ??? Air-dry your nipples for 3???4 minutes after each feeding. ??? Use only cotton bra pads to absorb leaked breast milk. Leaking of breast milk between feedings is normal. ??? Use lanolin on your nipples after . Lanolin helps to maintain your skin's normal moisture barrier. Pure lanolin is not harmful (not toxic) to your baby. You may also hand express a few drops of breast milk and gently massage that milk into your nipples and allow the milk to air-dry. In the first few weeks after giving , some women experience breast engorgement. Engorgement can make your breasts feel heavy, warm, and tender to the touch. Engorgement peaks within 3???5 days after you give . The following recommendations can help to ease engorgement: ??? Completely empty your breasts while or pumping. You may want to start by applying warm, moist heat (in the shower or with warm, water-soaked hand towels) just before feeding or pumping. This increases circulation and helps the milk flow. If your baby does not completely empty your breasts while , pump any extra milk after he or she is finished. ??? Apply ice packs to your breasts immediately after or pumping, unless this is too uncomfortable for you. To do this: ? Put ice in a plastic bag. ? Place a towel between your skin and the bag. ? Leave the ice on for 20 minutes, 2???3 times a day. ??? Make sure that your baby is latched on and positioned properly while . If engorgement persists after 48 hours of following these recommendations, contact your health care provider or a communication consultant. Overall health care recommendations while ??? Eat 3 healthy meals and 3 snacks every day. Well-nourished mothers who are need an additional 450???500 calories a day. You can meet this requirement by increasing the amount of a balanced diet that you eat. ??? Drink enough water to keep your urine pale yellow or clear. ??? Rest often, relax, and continue to take your vitamins to prevent fatigue, stress, and low vitamin and mineral levels in your body (nutrient deficiencies). ??? Do not use any products that contain nicotine or tobacco, such as cigarettes and e-cigarettes. Your baby may be harmed by chemicals from cigarettes that pass into breast milk and exposure to secondhand smoke. If you need help quitting, ask your health care provider. ??? Avoid alcohol. ??? Do not use illegal drugs or marijuana. ??? Talk with your health care provider before taking any medicines. These include aflh-bqa-baxcnuu and prescription medicines as well as vitamins and herbal supplements. Some medicines that may be harmful to your baby can pass through breast milk. ??? It is possible to become while . If control is desired, ask your health care provider about options that will be safe while your baby. Where to find more information: [employer]: www.llli.org Contact a health care provider if: ??? You feel like you want to stop or have become frustrated with . ??? Your nipples are cracked or bleeding. ??? Your breasts are red, tender, or warm. ??? You have: ? Painful breasts or nipples. ? A swollen area on either breast. ? A fever or chills. ? Nausea or vomiting. ? Drainage other than breast milk from your nipples. ??? Your breasts do not become full before feedings by the fifth day after you give . ??? You feel sad and depressed. ??? Your baby is: ? Too sleepy to eat well. ? Having trouble sleeping. ? More than 1 week old and wetting fewer than 6 diapers in a 24-hour period. ? Not gaining weight by 5 days of age. ??? Your baby has fewer than 3 stools in a 24-hour period. ??? Your baby's skin or the white parts of his or her eyes become yellow. Get help right away if: ??? Your baby is overly tired (lethargic) and does not want to wake up and feed. ??? Your baby develops an unexplained fever. Summary ??? offers many health benefits for and mothers. ??? Try to breastfeed your when he or she shows early signs of hunger. ??? Gently tickle or stroke your baby's lips with your finger or nipple to allow the baby to open his or her mouth. Bring the baby to your breast. Make sure that much of the areola is in your baby's mouth. Offer one side and burp the baby before you offer the other side. ??? Talk with your health care provider or communication consultant if you have questions or you face problems as you breastfeed. This information is not intended to replace advice given to you by your health care provider. Make sure you discuss any questions you have with your health care provider. Document Released: 07/11/2006 Document Revised: 08/12/2017 Document Reviewed: 08/12/2017 [employer] Patient Education ?? 2019 [employer] Vaginal Delivery, Care After Refer to this sheet in the next few weeks. These instructions provide you with information about caring for yourself after vaginal delivery. Your health care provider may also give you more specific instructions. Your treatment has been planned according to current medical practices, but problems sometimes occur. Call your health care provider if you have any problems or questions. What can I expect after the procedure? After vaginal delivery, it is common to have: ??? Some bleeding from your vagina. ??? Soreness in your abdomen, your vagina, and the area of skin between your vaginal opening and your anus (perineum). ??? Pelvic cramps. ??? Fatigue. Follow these instructions at home: Medicines ??? Take vklf-xyt-hnlfmyu and prescription medicines only as told by your health care provider. ??? If you were prescribed an antibiotic medicine, take it as told by your health care provider. Do not stop taking the antibiotic until it is finished. Driving ??? Do not drive or operate heavy machinery while taking prescription pain medicine. ??? Do not drive for 24 hours if you received a sedative. Lifestyle ??? Do not drink alcohol. This is especially important if you are or taking medicine to relieve pain. ??? Do not use tobacco products, including cigarettes, chewing tobacco, or e-cigarettes. If you need help quitting, ask your health care provider. Eating and drinking ??? Drink at least 8 eight-ounce glasses of water every day unless you are told not to by your health care provider. If you choose to breastfeed your baby, you may need to drink more water than this. ??? Eat high-fiber foods every day. These foods may help prevent or relieve constipation. High-fiber foods include: ? Whole grain cereals and breads. ? Brown rice. ? Beans. ? Fresh fruits and vegetables. Activity ??? Return to your normal activities as told by your health care provider. Ask your health care provider what activities are safe for you. ??? Rest as much as possible. Try to rest or take a nap when your baby is sleeping. ??? Do not lift anything that is heavier than your baby or 10 lb (4.5 kg) until your health care provider says that it is safe. ??? Talk with your health care provider about when you can engage in sexual activity. This may depend on your: ? Risk of infection. ? Rate of healing. ? Comfort and desire to engage in sexual activity. Vaginal Care ??? If you have an episiotomy or a vaginal tear, check the area every day for signs of infection. Check for: ? More redness, swelling, or pain. ? More fluid or blood. ? Warmth. ? Pus or a bad smell. ??? Do not use tampons or douches until your health care provider says this is safe. ??? Watch for any blood clots that may pass from your vagina. These may look like clumps of dark red, brown, or black discharge. General instructions ??? Keep your perineum clean and dry as told by your health care provider. ??? Wear loose, comfortable clothing. ??? Wipe from front to back when you use the toilet. ??? Ask your health care provider if you can shower or take a bath. If you had an episiotomy or a perineal tear during labor and delivery, your health care provider may tell you not to take baths for a certain length of time. ??? Wear a bra that supports your breasts and fits you well. ??? If possible, have someone help you with household activities and help care for your baby for at least a few days after you leave the hospital. ??? Keep all follow-up visits for you and your baby as told by your health care provider. This is important. Contact a health care provider if: ??? You have: ? Vaginal discharge that has a bad smell. ? Difficulty urinating. ? Pain when urinating. ? A sudden increase or decrease in the frequency of your bowel movements. ? More redness, swelling, or pain around your episiotomy or vaginal tear. ? More fluid or blood coming from your episiotomy or vaginal tear. ? Pus or a bad smell coming from your episiotomy or vaginal tear. ? A fever. ? A rash. ? Little or no interest in activities you used to enjoy. ? Questions about caring for yourself or your baby. ??? Your episiotomy or vaginal tear feels warm to the touch. ??? Your episiotomy or vaginal tear is or does not appear to be healing. ??? Your breasts are painful, hard, or turn red. ??? You feel unusually sad or worried. ??? You feel nauseous or you vomit. ??? You pass large blood clots from your vagina. If you pass a blood clot from your vagina, save it to show to your health care provider. Do not flush blood clots down the toilet without having your health care provider look at them. ??? You urinate more than usual. ??? You are dizzy or light-headed. ??? You have not breastfed at all and you have not had a menstrual period for 12 weeks after delivery. ??? You have stopped and you have not had a menstrual period for 12 weeks after you stopped . Get help right away if: ??? You have: ? Pain that does not go away or does not get better with medicine. ? Chest pain. ? Difficulty breathing. ? Blurred vision or spots in your vision. ? Thoughts about hurting yourself or your baby. ??? You develop pain in your abdomen or in one of your legs. ??? You develop a severe headache. ??? You faint. ??? You bleed from your vagina so much that you fill two sanitary pads in one hour. This information is not intended to replace advice given to you by your health care provider. Make sure you discuss any questions you have with your health care provider. Document Released: 07/08/2001 Document Revised: 12/22/2016 Document Reviewed: 07/25/2016 [employer] Patient Education ?? 2019 [employer]. Choosing to breastfeed is one of the best decisions you can make for yourself and your baby. A change in hormones during causes your breasts to make breast milk in your milk-producing glands. Hormones prevent breast milk from being released before your baby is born. They also prompt milk flow after . Once has begun, thoughts of your baby, as well as his or her sucking or crying, can stimulate the release of milk from your milk-producing glands. Benefits of Research shows that offers many health benefits for infants and mothers. It also offers a cost-free and convenient way to feed your baby. For your baby ??? Your first milk (colostrum) helps your baby's digestive system to function better. ??? Special cells in your milk (antibodies) help your baby to fight off infections. ??? Breastfed babies are less likely to develop asthma, allergies, obesity, or type 2 diabetes. They are also at lower risk for sudden infant syndrome (SIDS). ??? Nutrients in breast milk are better able to meet your baby???s needs compared to formula. ??? Breast milk improves your baby's brain development. For you ??? helps to create a very special cartwright between you and your baby. ??? is convenient. Breast milk costs nothing and is always available at the correct temperature. ??? helps to burn calories. It helps you to lose the weight that you gained during . ??? makes your uterus return faster to its size before . It also slows bleeding (lochia) after you give . ??? helps to lower your risk of developing type 2 diabetes, osteoporosis, rheumatoid arthritis, cardiovascular disease, and breast, ovarian, uterine, and endometrial cancer later in life. basics Starting ??? Find a comfortable place to sit or lie down, with your neck and back well-supported. ??? Place a pillow or a rolled-up blanket under your baby to bring him or her to the level of your breast (if you are seated). Nursing pillows are specially designed to help support your arms and your baby while you breastfeed. ??? Make sure that your baby's tummy (abdomen) is facing your abdomen. ??? Gently massage your breast. With your fingertips, massage from the outer edges of your breast inward toward the nipple. This encourages milk flow. If your milk flows slowly, you may need to continue this action during the feeding. ??? Support your breast with 4 fingers underneath and your thumb above your nipple (make the letter C with your hand). Make sure your fingers are well away from your nipple and your baby???s mouth. ??? Stroke your baby's lips gently with your finger or nipple. ??? When your baby's mouth is open wide enough, quickly bring your baby to your breast, placing your entire nipple and as much of the areola as possible into your baby's mouth. The areola is the colored area around your nipple. ? More areola should be visible above your baby's upper lip than below the lower lip. ? Your baby's lips should be opened and extended outward (flanged) to ensure an adequate, comfortable latch. ? Your baby's tongue should be between his or her lower gum and your breast. ??? Make sure that your baby's mouth is correctly positioned around your nipple (latched). Your baby's lips should create a seal on your breast and be turned out (everted). ??? It is common for your baby to suck about 2???3 minutes in order to start the flow of breast milk. Latching Teaching your baby how to latch onto your breast properly is very important. An improper latch can cause nipple pain, decreased milk supply, and poor weight gain in your baby. Also, if your baby is not latched onto your nipple properly, he or she may swallow some air during feeding. This can make your baby fussy. Burping your baby when you switch breasts during the feeding can help to get rid of the air. However, teaching your baby to latch on properly is still the best way to prevent fussiness from swallowing air while . Signs that your baby has successfully latched onto your nipple ??? Silent tugging or silent sucking, without causing you pain. Infant's lips should be extended outward (flanged). ??? Swallowing heard between every 3???4 sucks once your milk has started to flow (after your let-down milk reflex occurs). ??? Muscle movement above and in front of his or her ears while sucking. Signs that your baby has not successfully latched onto your nipple ??? Sucking sounds or smacking sounds from your baby while . ??? Nipple pain. If you think your baby has not latched on correctly, slip your finger into the corner of your baby???s mouth to break the suction and place it between your baby's gums. Attempt to start again. Signs of successful Signs from your baby ??? Your baby will gradually decrease the number of sucks or will completely stop sucking. ??? Your baby will fall asleep. ??? Your baby's body will relax. ??? Your baby will retain a small amount of milk in his or her mouth. ??? Your baby will let go of your breast by himself or herself. Signs from you ??? Breasts that have increased in firmness, weight, and size 1???3 hours after feeding. ??? Breasts that are softer immediately after . ??? Increased milk volume, as well as a change in milk consistency and color by the fifth day of . ??? Nipples that are not sore, cracked, or bleeding. Signs that your baby is getting enough milk ??? Wetting at least 1???2 diapers during the first 24 hours after . ??? Wetting at least 5???6 diapers every 24 hours for the first week after . The urine should be clear or pale yellow by the age of 5 days. ??? Wetting 6???8 diapers every 24 hours as your baby continues to grow and develop. ??? At least 3 stools in a 24-hour period by the age of 5 days. The stool should be soft and yellow. ??? At least 3 stools in a 24-hour period by the age of 7 days. The stool should be seedy and yellow. ??? No loss of weight greater than 10% of weight during the first 3 days of life. ??? Average weight gain of 4???7 oz (113???198 g) per week after the age of 4 days. ??? Consistent daily weight gain by the age of 5 days, without weight loss after the age of 2 weeks. After a feeding, your baby may spit up a small amount of milk. This is normal. frequency and duration Frequent feeding will help you make more milk and can prevent sore nipples and extremely full breasts (breast engorgement). Breastfeed when you feel the need to reduce the fullness of your breasts or when your baby shows signs of hunger. This is called on demand. Signs that your baby is hungry include: ??? Increased alertness, activity, or restlessness. ??? Movement of the head from side to side. ??? Opening of the mouth when the corner of the mouth or cheek is stroked (rooting). ??? Increased sucking sounds, smacking lips, cooing, sighing, or squeaking. ??? Exsx-vd-glift movements and sucking on fingers or hands. ??? Fussing or crying. Avoid introducing a pacifier to your baby in the first 4-6 weeks after your baby is born. After this time, you may choose to use a pacifier. Research has shown that pacifier use during the first year of a baby's life decreases the risk of sudden syndrome (SIDS). Allow your baby to feed on each breast as long as he or she wants. When your baby unlatches or falls asleep while feeding from the first breast, offer the second breast. Because newborns are often sleepy in the first few weeks of life, you may need to awaken your baby to get him or her to feed. times will vary from baby to baby. However, the following rules can serve as a guide to help you make sure that your baby is properly fed: ??? Newborns (babies 4 weeks of age or younger) may breastfeed every 1???3 hours. ??? Newborns should not go without for longer than 3 hours during the day or 5 hours during the night. ??? You should breastfeed your baby a minimum of 8 times in a 24-hour period. Breast milk pumping Pumping and storing breast milk allows you to make sure that your baby is exclusively fed your breast milk, even at times when you are unable to breastfeed. This is especially important if you go back to work while you are still , or if you are not able to be present during feedings. Your communication consultant can help you find a method of pumping that works best for you and give you guidelines about how long it is safe to store breast milk. Caring for your breasts while you breastfeed Nipples can become dry, cracked, and sore while . The following recommendations can help keep your breasts moisturized and healthy: ??? Avoid using soap on your nipples. ??? Wear a supportive bra designed especially for nursing. Avoid wearing underwire-style bras or extremely tight bras (sports bras). ??? Air-dry your nipples for 3???4 minutes after each feeding. ??? Use only cotton bra pads to absorb leaked breast milk. Leaking of breast milk between feedings is normal. ??? Use lanolin on your nipples after . Lanolin helps to maintain your skin's normal moisture barrier. Pure lanolin is not harmful (not toxic) to your baby. You may also hand express a few drops of breast milk and gently massage that milk into your nipples and allow the milk to air-dry. In the first few weeks after giving , some women experience breast engorgement. Engorgement can make your breasts feel heavy, warm, and tender to the touch. Engorgement peaks within 3???5 days after you give . The following recommendations can help to ease engorgement: ??? Completely empty your breasts while or pumping. You may want to start by applying warm, moist heat (in the shower or with warm, water-soaked hand towels) just before feeding or pumping. This increases circulation and helps the milk flow. If your baby does not completely empty your breasts while , pump any extra milk after he or she is finished. ??? Apply ice packs to your breasts immediately after or pumping, unless this is too uncomfortable for you. To do this: ? Put ice in a plastic bag. ? Place a towel between your skin and the bag. ? Leave the ice on for 20 minutes, 2???3 times a day. ??? Make sure that your baby is latched on and positioned properly while . If engorgement persists after 48 hours of following these recommendations, contact your health care provider or a communication consultant. Overall health care recommendations while ??? Eat 3 healthy meals and 3 snacks every day. Well-nourished mothers who are need an additional 450???500 calories a day. You can meet this requirement by increasing the amount of a balanced diet that you eat. ??? Drink enough water to keep your urine pale yellow or clear. ??? Rest often, relax, and continue to take your vitamins to prevent fatigue, stress, and low vitamin and mineral levels in your body (nutrient deficiencies). ??? Do not use any products that contain nicotine or tobacco, such as cigarettes and e-cigarettes. Your baby may be harmed by chemicals from cigarettes that pass into breast milk and exposure to secondhand smoke. If you need help quitting, ask your health care provider. ??? Avoid alcohol. ??? Do not use illegal drugs or marijuana. ??? Talk with your health care provider before taking any medicines. These include [id number] and prescription medicines as well as vitamins and herbal supplements. Some medicines that may be harmful to your baby can pass through breast milk. ??? It is possible to become while . If control is desired, ask your health care provider about options that will be safe while your baby. Where to find more information: [employer]: www.llli.org Contact a health care provider if: ??? You feel like you want to stop or have become frustrated with . ??? Your nipples are cracked or bleeding. ??? Your breasts are red, tender, or warm. ??? You have: ? Painful breasts or nipples. ? A swollen area on either breast. ? A fever or chills. ? Nausea or vomiting. ? Drainage other than breast milk from your nipples. ??? Your breasts do not become full before feedings by the fifth day after you give . ??? You feel sad and depressed. ??? Your baby is: ? Too sleepy to eat well. ? Having trouble sleeping. ? More than 1 week old and wetting fewer than 6 diapers in a 24-hour period. ? Not gaining weight by 5 days of age. ??? Your baby has fewer than 3 stools in a 24-hour period. ??? Your baby's skin or the white parts of his or her eyes become yellow. Get help right away if: ??? Your baby is overly tired (lethargic) and does not want to wake up and feed. ??? Your baby develops an unexplained fever. Summary ??? offers many health benefits for infant and mothers. ??? Try to breastfeed your infant when he or she shows early signs of hunger. ??? Gently tickle or stroke your baby's lips with your finger or nipple to allow the baby to open his or her mouth. Bring the baby to your breast. Make sure that much of the areola is in your baby's mouth. Offer one side and burp the baby before you offer the other side. ??? Talk with your health care provider or communication consultant if you have questions or you face problems as you breastfeed. This information is not intended to replace advice given to you by your health care provider. Make sure you discuss any questions you have with your health care provider. Document Released: 07/11/2006 Document Revised: 08/12/2017 Document Reviewed: 08/12/2017 [employer] Patient Education ?? 2019 [employer] ibuprofen (EYE bue PROE fen) Advil, Genpril, IBU, Midol IB, Motrin IB, Proprinal, Smart Sense Children's Ibuprofen What is the most important information I should know about ibuprofen? Ibuprofen can increase your risk of fatal heart attack or stroke, especially if you use it assisted or take high doses, or if you have heart disease. Do not use this medicine just before or after heart bypass surgery (coronary artery bypass graft, or CABG). Ibuprofen may also cause stomach or intestinal bleeding, which can be fatal. These conditions can occur without warning while you are using ibuprofen, especially in older adults. What is ibuprofen? Ibuprofen is a nonsteroidal anti-inflammatory drug (NSAID). Ibuprofen works by reducing hormones that cause inflammation and pain in the body. Ibuprofen is used to reduce fever and treat pain or inflammation caused by many conditions such as headache, toothache, back pain, arthritis, menstrual cramps, or minor injury. This medicine is used in adults and children who are at least 6 months old. Ibuprofen may also be used for purposes not listed in this medication guide. What should I discuss with my healthcare provider before taking ibuprofen? Ibuprofen can increase your risk of fatal heart attack or stroke, especially if you use it assisted or take high doses, or if you have heart disease. Even people without heart disease or risk factors could have a stroke or heart attack while taking this medicine. Do not use this medicine just before or after heart bypass surgery (coronary artery bypass graft, or CABG). Ibuprofen may also cause stomach or intestinal bleeding, which can be fatal. These conditions can occur without warning while you are using ibuprofen, especially in older adults. You should not use ibuprofen if you are allergic to it, or if you have ever had an asthma attack or severe allergic reaction after taking aspirin or an NSAID. Ask a doctor or pharmacist if it is safe for you to take this medicine if you have: ?? heart disease, high blood pressure, high cholesterol, diabetes, or if you smoke; ?? a history of heart attack, stroke, or blood clot; ?? a history of stomach ulcers or bleeding; ?? asthma; ?? liver or kidney disease; ?? fluid retention; or ?? a connective tissue disease such as Marfan syndrome, Sjogren's syndrome, or lupus. Taking ibuprofen during the last 3 months of may harm the unborn baby. Do not use this medicine without a doctor's advice if you are . It is not known whether ibuprofen passes into breast milk or if it could affect a nursing baby. Ask a doctor before using this medicine if you are breast-feeding. Do not give ibuprofen to a child younger than 2 years old without the advice of a doctor. How should I take ibuprofen? Use exactly as directed on the label, or as prescribed by your doctor. Do not use in larger amounts or for longer than recommended. Use the lowest dose that is effective in treating your condition. Do not take more than your recommended dose. An ibuprofen overdose can damage your stomach or intestines. The maximum amount of ibuprofen for adults is 800 milligrams per dose or 3200 mg per day (4 maximum doses). Use only the smallest amount of ibuprofen needed to get relief from your pain, swelling, or fever. A child's dose of ibuprofen is based on the age and weight of the child. Carefully follow the dosing instructions provided with children's ibuprofen for the age and weight of your child. Ask a doctor or pharmacist if you have questions. Take ibuprofen with food or milk to lessen stomach upset. Shake the oral suspension (liquid) well just before you measure a dose. Measure liquid medicine with the dosing syringe provided, or with a special dose-measuring spoon or medicine cup. If you do not have a dose-measuring device, ask your pharmacist for one. The ibuprofen chewable tablet must be chewed before you swallow it. If you use this medicine long-term, you may need frequent medical tests. Store at room temperature away from moisture and heat. Do not allow the liquid medicine to freeze. Read all patient information, medication guides, and instruction sheets provided to you. Ask your doctor or pharmacist if you have any questions. What happens if I miss a dose? Since ibuprofen is used when needed, you may not be on a dosing schedule. If you are on a schedule, use the missed dose as soon as you remember. Skip the missed dose if it is almost time for your next scheduled dose. Do not use extra medicine to make up the missed dose. What happens if I overdose? Seek emergency medical attention or call the Poison Help line at . Overdose symptoms may include nausea, vomiting, stomach pain, drowsiness, black or bloody stools, coughing up blood, shallow breathing, fainting, or coma. What should I avoid while taking ibuprofen? Avoid drinking alcohol. It may increase your risk of stomach bleeding. Avoid taking aspirin while you are taking ibuprofen. Avoid taking ibuprofen if you are taking aspirin to prevent stroke or heart attack. Ibuprofen can make aspirin less effective in protecting your heart and blood vessels. If you must use both medications, take the ibuprofen at least 8 hours before or 30 minutes after you take the aspirin (non-enteric coated form). Ask a doctor or pharmacist before using any cold, allergy, or pain medicine. Many medicines available over the counter contain aspirin or other medicines similar to ibuprofen. Taking certain products together can cause you to get too much of this type of medication. Check the label to see if a medicine contains aspirin, ibuprofen, ketoprofen, or naproxen. What are the possible side effects of ibuprofen? Get emergency medical help if you have signs of an allergic reaction: sneezing, runny or stuffy nose; wheezing or trouble breathing; hives; swelling of your face, lips, tongue, or throat. Get emergency medical help if you have signs of a heart attack or stroke: chest pain spreading to your jaw or shoulder, sudden numbness or weakness on one side of the body, slurred speech, leg swelling, feeling short of breath. Stop using ibuprofen and call your doctor at once if you have: ?? changes in your vision; ?? shortness of breath (even with mild exertion); ?? swelling or rapid weight gain; ?? the first sign of any skin rash, no matter how mild; ?? signs of stomach bleeding--bloody or tarry stools, coughing up blood or vomit that looks like coffee grounds; ?? liver problems--nausea, upper stomach pain, itching, tired feeling, flu-like symptoms, loss of appetite, dark urine, annette-colored stools, jaundice (yellowing of the skin or eyes); ?? kidney problems--little or no urinating, painful or difficult urination, swelling in your feet or ankles, feeling tired or short of breath; ?? low red blood cells (anemia)--pale skin, feeling light-headed or short of breath, rapid heart rate, trouble concentrating; or ?? severe skin reaction--fever, sore throat, swelling in your face or tongue, burning in your eyes, skin pain followed by a red or purple skin rash that spreads (especially in the face or upper body) and causes blistering and peeling. Common side effects may include: ?? upset stomach, mild heartburn, nausea, vomiting; ?? bloating, gas, diarrhea, constipation; ?? dizziness, headache, nervousness; ?? mild itching or rash; or ?? ringing in your ears. This is not a complete list of side effects and others may occur. Call your doctor for medical advice about side effects. You may report side effects to FDA at 0-722-UVI-8747. What other drugs will affect ibuprofen? Ask your doctor before using ibuprofen if you take an antidepressant such as citalopram, escitalopram, fluoxetine (Prozac), fluvoxamine, paroxetine, sertraline (Zoloft), trazodone, or vilazodone. Taking any of these medicines with an NSAID may cause you to bruise or bleed easily. Ask a doctor or pharmacist if it is safe for you to use ibuprofen if you are also using any of the following drugs: ?? lithium; ?? methotrexate; ?? a blood thinner (warfarin, Coumadin, Jantoven); ?? heart or blood pressure medication, including a diuretic or 'water pill'; or ?? steroid medicine (such as prednisone). This list is not complete. Other drugs may interact with ibuprofen, including prescription and wfkq-vak-ebbckqd medicines, vitamins, and herbal products. Not all possible interactions are listed in this medication guide. Where can I get more information? Your pharmacist can provide more information about ibuprofen. Remember, keep this and all other medicines out of the reach of children, never share your medicines with others, and use this medication only for the indication prescribed. Every effort has been made to ensure that the information provided by [employer]. ('[employer]') is accurate, up-to-date, and complete, but no guarantee is made to that effect. Drug information contained herein may be time sensitive. [employer] information has been compiled for use by healthcare practitioners and consumers in the [place] and therefore [employer] does not warrant that uses outside of the [place] are appropriate, unless specifically indicated otherwise. [employer] drug information does not endorse drugs, diagnose patients or recommend therapy. [employer] drug information is an informational resource designed to assist licensed healthcare practitioners in caring for their patients and/or to serve consumers viewing this service as a supplement to, and not a substitute for, the expertise, skill, knowledge and judgment of healthcare practitioners. The absence of a warning for a given drug or drug combination in no way should be construed to indicate that the drug or drug combination is safe, effective or appropriate for any given patient. [employer] does not assume any responsibility for any aspect of healthcare administered with the aid of information [employer] provides. The information contained herein is not intended to cover all possible uses, directions, precautions, warnings, drug interactions, allergic reactions, or adverse effects. If you have questions about the drugs you are taking, check with your doctor, nurse or pharmacist. Copyright 9734-7260 [employer]. Version: 18.01. Revision Date: 10/21/2016. Emergency Awareness and Preventative Care STROKE is [...] Assistance with quitting is available by contacting 2-041-UQNJNOW. This is a free resource providing counseling, support, and referral. Or you may contact your personal physician. [employer] Suicide Prevention Lifeline: The National Suicide Prevention [...] CPR? There are two easy steps: Call if you see a teen or adult collapse Push hard and fast in the center of the chest at a beat of 100 beats per minute. Save a life! 4 WAYS TO GET AHEAD OF SEPSIS SEPSIS is a MEDICAL EMERGENCY. Time matters! Infections put you and your family at risk for a life-threatening condition called sepsis. Electronically signed by Shereen Gilbert Conversion Plant Maintenance Supervisor Cerner at 11/12/2022 2:47 PM CDT documented in this encounter Plan of Treatment Not on file documented as of this encounter Visit Diagnoses Not on filedocumented in this encounter
--- OUTSIDE RECORDS SUMMARY | 2024-06-26 16:09 | XMS_ITS | Encounter Summary ---
Author Organization [employer] Address [address] [place] [address] Care Team Providers Care Hand Stone Polisher Name Role Phone Unavailable Primary Care Provider Unavailabl e Encounter Details Date Type Department Care Team (Late st Contact Info) Description 04/05/2019 Transcribed Document [facility] [place] [facility] [place] [address] ProviderVineet MD [address] [place] [address] Social History Tobacco Use Types Packs/Day Years Used Date Smoking Tobacco: Never Assessed Comments Unknown Sex and Gender Information Value Date Recorded Sex Assigned at Not on file Legal Sex Female 3:37 PM CDT Gender Identity Not on file Sexual Orientation Not on file documented as of this encounter Miscellaneous Notes * Cerner Conversion Note - Vineet Fitzgerald MD - 04/05/2019 10:58 AM CDT UM Authorization Entered On: 04/05/2019 10:59 EDT Performed On: 04/05/2019 10:58 EDT by SINDHU LOVETT RN-Utilization Review Primary Insurance Authorization Authorization and Policy Numbers : Insurance 1 Health Plan: [facility] Policy Number: [id number] Authorization Number: Insurance Primary Name : [employer]onte [id number] Authorization Status-Primary : Admit approved Reference Number-Primary : [id number] Authorization Number-Primary : [id number] Number of Days Authorized-Primary : 3 Authorized Service Begin Date-Primary : 04/03/2019 EDT Authorized Service End Date-Primary : 04/05/2019 EDT Authorization Comments-Primary : [place] approved per Marlee for 3 days -- nrd 04/06 Historical Authorization Comments-Primary : Comment 1: Auth initiated and delivery clinicals submitted via [employer] (GUNNAR KEITA Rn-Utilization Review 04/05/2019 09:36) SINDHU LOVETT RN-Utilization Review - 04/05/2019 10:58 EDT Electronically signed by Vladimir, [facility] Conversion Manager Product Management Cerner at 11/12/2022 2:41 PM CDT documented in this encounter Plan of Treatment Not on file documented as of this encounter Visit Diagnoses Not on filedocumented in this encounter
--- OUTSIDE RECORDS SUMMARY | 2024-06-26 16:09 | XMS_ITS | Encounter Summary ---
Author Organization [employer] Address [address] [place] [address] Care Team Providers Care Credit Administration Specialist Name Role Phone Unavailable Primary Care Provider Unavailabl e Encounter Details Date Type Department Care Team (Late st Contact Info) Description 04/09/2019 Transcribed Document [facility] [place] [facility] [place] [address] ProviderVineet MD [facility] [place] [id number] Social History Tobacco Use Types Packs/Day Years Used Date Smoking Tobacco: Never Assessed Comments Unknown Sex and Gender Information Value Date Recorded Sex Assigned at Not on file Legal Sex Female 3:37 PM CDT Gender Identity Not on file Sexual Orientation Not on file documented as of this encounter Miscellaneous Notes * Cerner Conversion Note - Vineet Fitzgerald MD - 04/09/2019 2:41 PM CDT UM Authorization Entered On: 04/09/2019 14:42 EDT Performed On: 04/09/2019 14:41 EDT by Rissa Varela Rn-Utilization Review Primary Insurance Authorization Authorization and Policy Numbers : Insurance 1 Health Plan: [facility] Policy Number: [id number] Authorization Number: [id number] Insurance Primary Name : Devonte [id number] Authorization Status-Primary : Admit approved Authorization Fax Number-Primary : [phone] Auth/Referral Phone Number-Primary : Kenyetta [phone] [facility] [phone] Reference Number-Primary : [id number] Authorization Number-Primary : [id number] Number of Days Authorized-Primary : 3 Authorized Service Begin Date-Primary : 04/03/2019 EDT Authorized Service End Date-Primary : 04/05/2019 EDT Authorization Comments-Primary : Additional clinicals faxed to Kenyetta at [facility] for last day 04-06-19 Historical Authorization Comments-Primary : Comment 1: [place] approved per Marlee for 3 days -- nrd 04/06 (SINDHU LOVETT, RN-Utilization Review 04/05/2019 10:58) Comment 2: Auth initiated and delivery clinicals submitted via [employer] (GUNNAR KEITA, Patricia-Utilization Review 04/05/2019 09:36) Rissa Varela Rn-Utilization Review - 04/09/2019 14:41 EDT Electronically signed by Vladimir [facility] Conversion Youth Pastor Cerner at 11/12/2022 2:37 PM CDT documented in this encounter Plan of Treatment Not on file documented as of this encounter Visit Diagnoses Not on filedocumented in this encounter
--- OUTSIDE RECORDS SUMMARY | 2024-06-26 16:09 | XMS_ITS | Encounter Summary ---
Author Organization [employer] Address [address] [place] [address] Care Team Providers Care Health Analyst Name Role Phone Unavailable Primary Care Provider Unavailabl e Encounter Details Date Type Department Care Team (Late st Contact Info) Description 03/29/2019 Transcribed Document [facility] [place] [facility] [place] [address] ProviderVineet MD [facility] [address] Social History Tobacco Use Types Packs/Day Years Used Date Smoking Tobacco: Never Assessed Comments Unknown Sex and Gender Information Value Date Recorded Sex Assigned at Not on file Legal Sex Female 3:37 PM CDT Gender Identity Not on file Sexual Orientation Not on file documented as of this encounter Miscellaneous Notes * Cerner Conversion Note - Vineet Fitzgerald MD - 03/29/2019 8:41 PM CDT Nursing Discharge Summary Entered On: 03/29/2019 20:42 EDT Performed On: 03/29/2019 20:41 EDT by Ania Zamorano Rn Discharge Documentation Discharge Date/Time : 03/29/2019 20:41 EDT Patient Disposition, General : Discharge Discharge To : Home with ambulatory/outpatient follow-up Name of Receiving Facility/Provider : Dr. Zuhair MD Mode Of Departure, General Discharge : Private vehicle Accompanied By, Discharge : Spouse IV Discontinued : Not applicable Medications Given to Patient : No Personal Belongings With Patient : Yes Prescriptions Given to Patient : No Discharge Instructions Reviewed With, Opportunity For Questions Given : Patient, Spouse Patient Education Completed : Yes Teaching Method : Explanation, Printed materials Teaching Evaluation : Verbalizes understanding Ania Zamorano Rn - 03/29/2019 20:41 EDT Electronically signed by Vladimir [facility] Conversion Etl Software Engineer Cerner at 11/12/2022 2:49 PM CDT documented in this encounter Plan of Treatment Not on file documented as of this encounter Visit Diagnoses Not on filedocumented in this encounter
--- OUTSIDE RECORDS SUMMARY | 2024-06-26 16:09 | XMS_ITS | Encounter Summary ---
Author Organization [employer] Address [address] [place] [address] Care Team Providers Care Magnetic Healer Name Role Phone Unavailable Primary Care Provider Unavailabl e Encounter Details Date Type Department Care Team (Late st Contact Info) Description 03/29/2019 Transcribed Document [facility] [place] [facility] [place] [address] ProviderVineet MD [facility] [place] [address] Social History Tobacco Use Types Packs/Day Years Used Date Smoking Tobacco: Never Assessed Comments Unknown Sex and Gender Information Value Date Recorded Sex Assigned at Not on file Legal Sex Female 3:37 PM CDT Gender Identity Not on file Sexual Orientation Not on file documented as of this encounter Miscellaneous Notes * Cerner Conversion Note - Vineet Fitzgerald MD - 03/29/2019 8:18 PM CDT Admission Data, OB Entered On: 03/29/2019 20:20 EDT Performed On: 03/29/2019 20:18 EDT by Ania Zamorano Rn Advance Directive Patient has Advance Directive *Q : No, patient refuses Advance Directive information Ania Zamorano Rn - 03/29/2019 20:18 EDT Height and Weight Height Source : Stated Height Entry Format : [employer] Height, Feet : 5 ft(Converted to: 152 cm, 60 Inch) Clinical Height : 172.72 cm Height, Inches : 8 Inch(Converted to: 0 ft 8 Inch, 20.32 cm) Weight Source : Standing scale Weight Entry Format : [employer] Weight, Pounds : 305 lb Clinical Dosing Weight : 138.64 kg Body Surface Area (BSA) : 2.45 m2 Body Mass Index : 46.5 kg/m2 (>HHI) [place] Body Weight (IBW) : 63.45 kg Ania Zamorano Rn - 03/29/2019 20:18 EDT Health Histories Smoking Status : Former smoker, quit more than 30 days ago Smokeless Tobacco Status : Never Ania Zamorano Rn - 03/29/2019 20:18 EDT Social History (As Of: 03/29/2019 20:20:36 EDT) Tetanus Immunization Status Previous Tetanus Immunizations : No qualifying data available. Tetanus Immunization : Unknown Ania Zamorano Rn - 03/29/2019 20:18 EDT Influenza Vaccine Asmt, Adult Previous Vaccines from Immunization Schedule : No qualifying data available. Influenza Immunization, Current Season : Outside of influenza season Ania Zamorano Rn - 03/29/2019 20:18 EDT Pneumococcal Vaccine Previous Vaccines from Immunization Schedule : No qualifying data available. Pneumonia Immunization Received : No Pneumococcal Risk Assessment < Age 65 : None Ania Zamorano Rn - 03/29/2019 20:18 EDT Order Details Transport Mode Order Detail : Ambulatory Isolation Precautions Order Detail : Standard Precautions Order Detail : 1 IV Order Detail : 0 Oxygen Order Detail : 0 Nurse Collect Order Detail : 1 Lift/Transfer : Independent Central Line Order Detail : No Room Service : Appropriate Arterial Line : No Ania Zamorano Rn - 03/29/2019 20:18 EDT Vital Measurements Temperature Source : Oral Temperature Mode : Fahrenheit Temperature, Fahrenheit : 98.3 Deg F Clinical Temperature, C : 36.8 Deg C Pulse Method : Non-Invasive BP Device Peripheral Pulse Rate : 90 bpm Pulse Rhythm : Regular Respiratory Rate : 18 Breaths/Min Blood Pressure Location : Arm, right upper Blood Pressure Source : Non-Invasive BP Device Blood Pressure Position : Sitting Systolic Blood Pressure : 121 mmHg Diastolic Blood Pressure : 59 mmHg (LOW) Ania Zamorano Rn - 03/29/2019 20:18 EDT Infectious Disease History Infectious Disease History : Chicken pox/Shingles Fever/Chills Last 48 Hours : No Travel To Regions with Travel Advisories : No Travel Outside [place] Within Last 30 Days : No Contact With Traveler to Advisory Region : No Tuberculosis Symptoms : None Ania Zamorano Rn - 03/29/2019 20:18 EDT documented in this encounter Plan of Treatment Not on file documented as of this encounter Visit Diagnoses Not on filedocumented in this encounter
--- OUTSIDE RECORDS SUMMARY | 2024-06-26 16:09 | XMS_ITS | Encounter Summary ---
Author Organization [employer] Address [address] [place] [address] Care Team Providers Care Hem Inspector Name Role Phone Unavailable Primary Care Provider Unavailabl e Encounter Details Date Type Department Care Team (Late st Contact Info) Description 04/05/2019 Transcribed Document [facility] [place] Family Medicine [address] [place] [address] ProviderVineet MD [facility] [address] Social History Tobacco Use Types Packs/Day Years Used Date Smoking Tobacco: Never Assessed Comments Unknown Sex and Gender Information Value Date Recorded Sex Assigned at Not on file Legal Sex Female 3:37 PM CDT Gender Identity Not on file Sexual Orientation Not on file documented as of this encounter Miscellaneous Notes * Cerner Conversion Note - Vineet Fitzgerald MD - 04/05/2019 6:00 PM CDT Pain Assessment Entered On: 04/05/2019 18:21 EDT Performed On: 04/05/2019 18:21 EDT by SINDHU MCCOY RN Intervention Information: ibuprofen Performed by SINDHU MCCOY RN on 04/05/2019 17:21:06 EDT ibuprofen,600mg Oral Pain Assessment Pain Assessment : Follow-up assessment Pain Scale Used : 0-10 Scale SINDHU MCCOY RN - 04/05/2019 18:21 EDT Pain Scale Intensity : 0 SINDHU MCCOY RN - 04/05/2019 18:21 EDT Image 4 - Images currently included in the form version of this document have not been included in the text rendition version of the form. documented in this encounter Plan of Treatment Not on file documented as of this encounter Visit Diagnoses Not on filedocumented in this encounter
--- OUTSIDE RECORDS SUMMARY | 2024-06-26 16:09 | XMS_ITS | Encounter Summary ---
Author Organization [employer] Address [address] [place] [address] Care Team Providers Care Used Equipment Sales Representative Name Role Phone Unavailable Primary Care Provider Unavailabl e Encounter Details Date Type Department Care Team (Late st Contact Info) Description 04/03/2019 Historic Encounter [facility] [address] [place] [address] ProviderLeanne Historical Social History Tobacco [...] Procedure Name Priority Date/Time Associated Diagnosis Comments [facility] BASIC METABOLIC PANEL ([facility]KR DATA CONV) Routine 04/03/2019 11:57 PM EDT documented in this encounter Results * (ABNORMAL) [facility] BASIC METABOLIC PANEL ([facility]KR DATA CONV) (04/03/2019 11:57 PM EDT) Glucose Level 128(H) 74 - 106 mg/dL 04/04/2019 4:27 AM EDT Comment: Kasenna has become aware of sulfasalazine and sulfapyridine drug interference in the assays ALT, AST, T4, CKMB, glucose, and ammonia. The probability of misinterpretation of results for the assays is remote and would be limited to scenarios where a patient has taken the drug and had a blood sample drawn before clearance of the drug to a level that does not interfere with laboratory testing. Venipuncture should occur prior to administration of the drug. Blood Urea Nitrogen 12 7 - 22 mg/dL 04/04/2019 4:27 AM EDT Creatinine Level 0.62 0.55 - 1.02 mg/dL 04/04/2019 4:27 AM EDT Sodium Level 137 136 - 146 mmol/L 04/04/2019 4:27 AM EDT Potassium Level 3.6 3.5 - 5.1 mmol/L 04/04/2019 4:27 AM EDT Chloride Level 107 102 - 112 mmol/L 04/04/2019 4:27 AM EDT Carbon Dioxide Level 21 21 - 32 mmol/L 04/04/2019 4:27 AM EDT Anion Gap 13 9 - 20 04/04/2019 4:27 AM EDT Calcium Level 8.3(L) 8.5 - 10.1 mg/dL 04/04/2019 4:27 AM EDT Bun/Creatinine 19.4 8.0 - 20.0 04/04/2019 4:27 AM EDT eGFR NonAfrican >60 >=60 mL/min/1. 73m2 04/04/2019 4:27 AM EDT Comment: GFR <60 suggests chronic kidney disease, if found over 3 month period. GFR <15 indicates renal failure. eGFR >60 >=60 mL/min/1. 73m2 04/04/2019 4:27 AM EDT Comment: GFR <60 suggests chronic kidney disease, if found over 3 month period. GFR <15 indicates renal failure. Blood 04/03/2019 11:5 7 PM EDT 04/04/2019 4:05 AM EDT us Sle Historical Provider LAB BLOOD ORDERABLES Fi nal Result [facility] [address] [phone] documented in this encounter Visit Diagnoses Not on filedocumented in this encounter
--- OUTSIDE RECORDS SUMMARY | 2024-06-26 16:09 | XMS_ITS | Encounter Summary ---
Author Organization [employer] Address [address] [place] [address] Care Team Providers Care Tax Processor Name Role Phone Unavailable Primary Care Provider Unavailabl e Encounter Details Date Type Department Care Team (Late st Contact Info) Description 04/07/2019 Transcribed Document [facility] [place] Family [facility] [place] [address] ProviderVineet MD [address] [place] [address] Social History Tobacco Use Types [...] Fitzgerald MD - 04/07/2019 1:08 PM CDT Patient Education Materials Follows: and Mastitis Mastitis is inflammation of the [...] these instructions at home: Medicines ??? Take wbpx-llk-hzdkbqv and prescription medicines only as told by [...] 11/05/2005 Document Revised: 07/12/2017 Document Reviewed: 07/12/2017 [employer] Interactive Patient Education ? 2019 [employer] Choosing to breastfeed is one of the [...] milk are better able to meet your baby?s needs compared to formula. ??? Breast milk [...] well away from your nipple and your baby?s mouth. ??? Stroke your baby's lips gently [...] common for your baby to suck about 2?3 minutes in order to start the flow [...] outward (flanged). ??? Swallowing heard between every 3?4 sucks once your milk has started to [...] your finger into the corner of your baby?s mouth to break the suction and place [...] have increased in firmness, weight, and size 1?3 hours after feeding. ??? Breasts that are softer immediately after . ??? Increased milk volume, as well as a change in milk consistency and color by the fifth day of . ??? Nipples that are not sore, cracked, or bleeding. Signs that your baby is getting enough milk ??? Wetting at least 1?2 diapers during the first 24 hours after . ??? Wetting at least 5?6 diapers every 24 hours for the first week after . The urine should be clear or pale yellow by the age of 5 days. ??? Wetting 6?8 diapers every 24 hours as your baby [...] of life. ??? Average weight gain of 4?7 oz (113?198 g) per week after the age of [...] smacking lips, cooing, sighing, or squeaking. ??? Fyhu-lh-ottbt movements and sucking on fingers or hands. [...] of age or younger) may breastfeed every 1?3 hours. ??? Newborns should not go without [...] able to be present during feedings. Your physician practice consultant can help you find a method [...] (sports bras). ??? Air-dry your nipples for 3?4 minutes after each feeding. ??? Use only [...] tender to the touch. Engorgement peaks within 3?5 days after you give . The following [...] Leave the ice on for 20 minutes, 2?3 times a day. ??? Make sure that your baby is latched on and positioned properly while . If engorgement persists after 48 hours of following these recommendations, contact your health care provider or a physician practice consultant. Overall health care recommendations while ??? Eat 3 healthy meals and 3 snacks every day. Well-nourished mothers who are need an additional 450?500 calories a day. You can meet this [...] provider before taking any medicines. These include bwhs-uwu-bwlzuvq and prescription medicines as well as vitamins and herbal supplements. Some medicines that may be harmful to your baby can pass through breast milk. ??? It is possible to become while . If control is desired, ask your health care provider about options that will be safe while your baby. Where to find more information: [employer]: www.llli.org Contact a health care [...] Talk with your health care provider or physician practice consultant if you have questions or you face problems as you breastfeed. This information is not intended to replace advice given to you by your health care provider. Make sure you discuss any questions you have with your health care provider. Document Released: 07/11/2006 Document Revised: 08/12/2017 Document Reviewed: 08/12/2017 [employer] Interactive Patient Education ? 2019 [employer] Choosing to breastfeed is one of the [...] milk are better able to meet your baby?s needs compared to formula. ??? Breast milk [...] well away from your nipple and your baby?s mouth. ??? Stroke your baby's lips gently [...] common for your baby to suck about 2?3 minutes in order to start the flow [...] outward (flanged). ??? Swallowing heard between every 3?4 sucks once your milk has started to [...] your finger into the corner of your baby?s mouth to break the suction and place [...] have increased in firmness, weight, and size 1?3 hours after feeding. ??? Breasts that are softer immediately after . ??? Increased milk volume, as well as a change in milk consistency and color by the fifth day of . ??? Nipples that are not sore, cracked, or bleeding. Signs that your baby is getting enough milk ??? Wetting at least 1?2 diapers during the first 24 hours after . ??? Wetting at least 5?6 diapers every 24 hours for the first week after . The urine should be clear or pale yellow by the age of 5 days. ??? Wetting 6?8 diapers every 24 hours as your baby [...] of life. ??? Average weight gain of 4?7 oz (113?198 g) per week after the age of [...] smacking lips, cooing, sighing, or squeaking. ??? Ltmb-of-iojkh movements and sucking on fingers or hands. [...] of age or younger) may breastfeed every 1?3 hours. ??? Newborns should not go without [...] able to be present during feedings. Your physician practice consultant can help you find a method [...] (sports bras). ??? Air-dry your nipples for 3?4 minutes after each feeding. ??? Use only [...] tender to the touch. Engorgement peaks within 3?5 days after you give . The following [...] Leave the ice on for 20 minutes, 2?3 times a day. ??? Make sure that your baby is latched on and positioned properly while . If engorgement persists after 48 hours of following these recommendations, contact your health care provider or a physician practice consultant. Overall health care recommendations while ??? Eat 3 healthy meals and 3 snacks every day. Well-nourished mothers who are need an additional 450?500 calories a day. You can meet this [...] provider before taking any medicines. These include cgbn-ylx-jmchcyi and prescription medicines as well as vitamins and herbal supplements. Some medicines that may be harmful to your baby can pass through breast milk. ??? It is possible to become while . If control is desired, ask your health care provider about options that will be safe while your baby. Where to find more information: [employer]: www.llli.org Contact a health care [...] Talk with your health care provider or physician practice consultant if you have questions or you face problems as you breastfeed. This information is not intended to replace advice given to you by your health care provider. Make sure you discuss any questions you have with your health care provider. Document Released: 07/11/2006 Document Revised: 08/12/2017 Document Reviewed: 08/12/2017 [employer] Interactive Patient Education ? 2019 [employer] Obstetrics and Gynecology Vaginal Delivery, Care After Refer to this [...] these instructions at home: Medicines ??? Take ejcm-wmm-czzlahw and prescription medicines only as told by [...] 07/08/2001 Document Revised: 12/22/2016 Document Reviewed: 07/25/2016 [employer] Interactive Patient Education ? 2019 [employer] Electronically signed by Shereen Gilbert Conversion Air Intelligence Specialist Cerner at 11/12/2022 2:56 PM CDT documented in this encounter Plan of Treatment Not on file documented as of this encounter Visit Diagnoses Not on filedocumented in this encounter
--- OUTSIDE RECORDS SUMMARY | 2024-06-26 16:09 | XMS_ITS | Encounter Summary ---
Author Organization [employer] Address [address] [place] [address] Care Team Providers Care Glove Examiner Name Role Phone Unavailable Primary Care Provider Unavailabl e Encounter Details Date Type Department Care Team (Late st Contact Info) Description 04/04/2019 Transcribed Document [facility] [place] Medicine [facility] [place] [address] ProviderVineet MD [facility] [place] [address] Social History Tobacco Use Types Packs/Day Years Used Date Smoking Tobacco: Never Assessed Comments Unknown Sex and Gender Information Value Date Recorded Sex Assigned at Not on file Legal Sex Female 3:37 PM CDT Gender Identity Not on file Sexual Orientation Not on file documented as of this encounter Miscellaneous Notes * [employer] Conversion Note - Vineet Fitzgerald MD - 04/04/2019 12:04 AM CDT Admission Data, OB Entered On: 04/04/2019 0:06 EDT Performed On: 04/04/2019 0:04 EDT by Dafne Marquez RN Advance Directive Patient has Advance Directive *Q : No, patient refuses Advance Directive information Dafne Marquez RN - 04/04/2019 0:04 EDT Height and Weight Height Source : Stated Height Entry Format : [place] Height, Feet : 5 ft(Converted to: 152 cm, 60 Inch) Clinical Height : 172.72 cm Height, Inches : 8 Inch(Converted to: 0 ft 8 Inch, 20.32 cm) Weight Source : Standing scale Weight Entry Format : [place] Weight, Pounds : 305 lb Clinical Dosing Weight : 138.64 kg Body Surface Area (BSA) : 2.45 m2 Body Mass Index : 46.5 kg/m2 (>HHI) [place] Body Weight (IBW) : 63.45 kg Dafne Marquez RN - 04/04/2019 0:04 EDT Health Histories Smoking Status : Never (less than 100 in lifetime; none in last 30 days) Smokeless Tobacco Status : Never Dafne Marquez RN - 04/04/2019 0:04 EDT Social History (As Of: 04/04/2019 00:06:12 EDT) Tetanus Immunization Status Previous Tetanus Immunizations : No qualifying data available. Tetanus Immunization : Greater than 10 years Dafne Marquez RN - 04/04/2019 0:04 EDT Influenza Vaccine Asmt, Adult Previous Vaccines from Immunization Schedule : No qualifying data available. Influenza Immunization, Current Season : Outside of influenza season Dafne Marquez RN - 04/04/2019 0:04 EDT Pneumococcal Vaccine Previous Vaccines from Immunization Schedule : No qualifying data available. Pneumonia Immunization Received : No Pneumococcal Risk Assessment < Age 65 : None Dafne Marquez RN - 04/04/2019 0:04 EDT Order Details Transport Mode Order Detail : Ambulatory Isolation Precautions Order Detail : Standard Precautions Order Detail : 1 IV Order Detail : 1 Oxygen Order Detail : 0 Nurse Collect Order Detail : 1 Lift/Transfer : Independent Central Line Order Detail : No Room Service : Not Appropriate Arterial Line : No Dafne Marquez RN - 04/04/2019 0:04 EDT Vital Measurements Temperature Source : Oral Temperature Mode : Fahrenheit Temperature, Fahrenheit : 97.8 Deg F Clinical Temperature, C : 36.6 Deg C Pulse Method : Non-Invasive BP Device Pulse Source : Brachial, Right Peripheral Pulse Rate : 80 bpm Pulse Rhythm : Regular Respiratory Rate : 16 Breaths/Min Blood Pressure Location : Arm, right upper Blood Pressure Source : Non-Invasive BP Device Blood Pressure Position : Sitting Systolic Blood Pressure : 109 mmHg Diastolic Blood Pressure : 61 mmHg Dafne Marquez RN - 04/04/2019 0:04 EDT Infectious Disease History Infectious Disease History : Chicken pox/Shingles Fever/Chills Last 48 Hours : No Travel To Regions with Travel Advisories : No Travel Outside [place] Within Last 30 Days : No Contact With Traveler to Advisory Region : No Tuberculosis Symptoms : None Dafne Marquez RN - 04/04/2019 0:04 EDT documented in this encounter Plan of Treatment Not on file documented as of this encounter Visit Diagnoses Not on filedocumented in this encounter
--- OUTSIDE RECORDS SUMMARY | 2024-06-26 16:09 | XMS_ITS | Encounter Summary ---
Author Organization [employer] Address [address] [place] [address] Care Team Providers Care Supervisor Roving Name Role Phone Unavailable Primary Care Provider Unavailabl e Encounter Details Date Type Department Care Team (Late st Contact Info) Description 04/07/2019 Transcribed Document [facility] [place] [address] [place] [address] ProviderVineet MD [facility] [place] [address] Social History Tobacco Use Types Packs/Day Years Used Date Smoking Tobacco: Never Assessed Comments Unknown Sex and Gender Information Value Date Recorded Sex Assigned at Not on file Legal Sex Female 3:37 PM CDT Gender Identity Not on file Sexual Orientation Not on file documented as of this encounter Miscellaneous Notes * Cerner Conversion Note - Vineet ProviderMD - 04/07/2019 12:00 AM CDT Pain Assessment Entered On: 04/07/2019 7:41 EDT Performed On: 04/07/2019 0:41 EDT by Vania Gee RN Intervention Information: ibuprofen Performed by Vania Gee, RN on 04/06/2019 23:41:58 EDT ibuprofen,600mg Oral Pain Assessment Pain Assessment : Follow-up assessment Pain Comment : see OBTV Vania Gee, RN - 04/07/2019 7:41 EDT Electronically signed by Shereen Gilbert Conversion Produce Service Team Member [employer] at 11/12/2022 2:52 PM CDT documented in this encounter Plan of Treatment Not on file documented as of this encounter Visit Diagnoses Not on filedocumented in this encounter
--- OUTSIDE RECORDS SUMMARY | 2024-06-26 16:09 | XMS_ITS | Encounter Summary ---
Author Organization [employer] Address [address] [place] [address] Care Team Providers Care Program Services Planner Name Role Phone Unavailable Primary Care Provider Unavailabl e Encounter Details Date Type Department Care Team (Late st Contact Info) Description 04/11/2019 Transcribed Document [facility] [facility] [place] [address] ProviderVineet MD [facility] [place], [place] [id number] Social History Tobacco Use Types Packs/Day Years Used Date Smoking Tobacco: Never Assessed Comments Unknown Sex and Gender Information Value Date Recorded Sex Assigned at Not on file Legal Sex Female 3:37 PM CDT Gender Identity Not on file Sexual Orientation Not on file documented as of this encounter Miscellaneous Notes * Cerner Conversion Note - Vineet Fitzgerald MD - 04/11/2019 9:52 AM CDT UM Authorization Entered On: 04/11/2019 9:53 EDT Performed On: 04/11/2019 9:52 EDT by SINDHU LOVETT RN-Utilization Review Primary Insurance Authorization Authorization and Policy Numbers : Insurance 1 Health Plan: [facility] Policy Number: [id number] Authorization Number: [id number] Insurance Primary Name : Devonte [id number] Authorization Status-Primary : Admit approved Authorization Fax Number-Primary : [phone] Auth/Referral Phone Number-Primary : [place] [phone] ext [phone] Reference Number-Primary : [id number] Authorization Number-Primary : [id number] Number of Days Authorized-Primary : 3 Authorized Service Begin Date-Primary : 04/03/2019 EDT Authorized Service End Date-Primary : 04/05/2019 EDT Authorization Comments-Primary : [facility] still pending for 1 more day per availity Historical Authorization Comments-Primary : Comment 1: Additional clinicals faxed to [place] at [facility] TOA for last day 04-06- (Rissa Varela, Rn-Utilization Review 04/09/2019 14:41) Comment 2: [facility] approved per Marlee for 3 days -- nrd 04/06 (SINDHU LOVETT, PATSY-Utilization Review 04/05/2019 10:58) Comment 3: Auth initiated and delivery clinicals submitted via [employer] (GUNNAR KEITA, Patsy-Utilization Review 04/05/2019 09:36) SINDHU LOVETT RN-Utilization Review - 04/11/2019 9:52 EDT documented in this encounter Plan of Treatment Not on file documented as of this encounter Visit Diagnoses Not on filedocumented in this encounter
--- OUTSIDE RECORDS SUMMARY | 2024-06-26 16:09 | XMS_ITS | Encounter Summary ---
Author Organization [employer] Address [address] [place] [address] Care Team Providers Care Video Journalist Name Role Phone Unavailable Primary Care Provider Unavailabl e Encounter Details Date Type Department Care Team (Late st Contact Info) Description 04/06/2019 Transcribed Document [facility] [address] [place] [address] ProviderVineet MD [facility] [place] [address] Social History Tobacco Use Types Packs/Day Years Used Date Smoking Tobacco: Never Assessed Comments Unknown Sex and Gender Information Value Date Recorded Sex Assigned at Not on file Legal Sex Female 3:37 PM CDT Gender Identity Not on file Sexual Orientation Not on file documented as of this encounter Miscellaneous Notes * Cerner Conversion Note - Historical ProviderMD - 04/06/2019 8:05 PM CDT School Bus Driver Details Entered On: 04/06/2019 20:06 EDT Performed On: 04/06/2019 20:05 EDT by Vania Gee RN Order Details Transport Mode Order Detail : Ambulatory Isolation Precautions Order Detail : Standard Precautions Order Detail : 0 IV Order Detail : 0 Oxygen Order Detail : 0 Nurse Collect Order Detail : 0 Lift/Transfer : Independent Central Line Order Detail : No Room Service : Appropriate Arterial Line : No Vania Gee, RN - 04/06/2019 20:05 EDT documented in this encounter Plan of Treatment Not on file documented as of this encounter Visit Diagnoses Not on filedocumented in this encounter
--- OUTSIDE RECORDS SUMMARY | 2024-06-26 16:09 | XMS_ITS | Encounter Summary ---
Author Organization [employer] Address [address] [place] [address] Care Team Providers Care Gang Supervisor Pipe Lines Name Role Phone Unavailable Primary Care Provider Unavailabl e Encounter Details Date Type Department Care Team (Late st Contact Info) Description 04/03/2019 Historic Encounter [facility] [address] [place] [address] ProviderLeanne Historical Social History Tobacco [...] Procedure Name Priority Date/Time Associated Diagnosis Comments ABO/RH ([place] BKR) Routine 04/03/2019 11:57 PM EDT documented in this encounter Results * ABO/Rh (04/03/2019 11:57 PM EDT) Hx Check A POS 04/04/2019 4:2 1 AM EDT Method Tube 04/04/2019 4:2 1 AM EDT Anti-A 4+ 04/04/2019 4:2 1 AM EDT Anti-B 0 04/04/2019 4:2 1 AM EDT Anti-D 4+ 04/04/2019 4:2 1 AM EDT Con NT 04/04/2019 4:2 1 AM EDT A1 0 04/04/2019 4:2 1 AM EDT B 4+ 04/04/2019 4:2 1 AM EDT ABO/Rh A POS 04/04/2019 4:2 1 AM EDT Blood 04/03/2019 11:5 7 PM EDT 04/04/2019 4:03 AM EDT [facility] Historical Provider [facility] BLOOD BANK TEST ORD ERABLES Final Result Performing Organization Address City/State/[facility] Co de Phone Number [facility] [address] [place] [address] documented in this encounter Visit Diagnoses Not on filedocumented in this encounter
--- OUTSIDE RECORDS SUMMARY | 2024-06-26 16:09 | XMS_ITS | Encounter Summary ---
Author Organization [employer] Address [address] [place] [address] Care Team Providers Care Mattress Stuffer Name Role Phone Unavailable Primary Care Provider Unavailabl e Encounter Details Date Type Department Care Team (Late st Contact Info) Description 04/06/2019 Transcribed Document [facility] [place] [facility] [place] [address] ProviderVineet MD [facility] [place] [address] Social History Tobacco Use Types Packs/Day Years Used Date Smoking Tobacco: Never Assessed Comments Unknown Sex and Gender Information Value Date Recorded Sex Assigned at Not on file Legal Sex Female 3:37 PM CDT Gender Identity Not on file Sexual Orientation Not on file documented as of this encounter Miscellaneous Notes * Cerner Conversion Note - Vineet Fitzgerald MD - 04/06/2019 8:55 AM CDT Patient: PAT MURPHY Age: 29 Years Sex: Female : 1990 Admit Date 04/03/2019 22:16 Discharge Date 04-06-19 Primary Care Provider [facility] Discharge Diagnosis Procedures del and care Reason for Hospitalization childbirth Hospital Course benign Vital Signs Oxygen Settings (Last) vss; afebrile Physical Exam gen: nad cardiac; reg rate resp: unlabord abd; fundus firm, nl lochia extrem: no edema or calf pain Discharge Disposition stable Discharge Follow Up 3wks - ppd screen Discharge Medications (4) Active HumaLOG KwikPen 100 units/mL injectable solution 36 Units, SubCutaneous, TID With Meals Lantus Solostar Pen 100 units/mL subcutaneous solution 91 Units, SubCutaneous, At Bedtime levothyroxine 50 mcg, Daily Multivitamins oral tablet Code Status Start: 04/05/19 1:14:00 EDT, Full Code, Continuous Order Consulting Physicians No Consulting Physician on Record. Current Diet Order Diet, Adult - Ordered -- Start: 04/05/19 1:14:00 EDT, Regular Diet, Isolation: Standard Precautions Pending Labs No Labs on Record Electronically signed by [facility] Conversion Collateral Clerk Cerner at 11/12/2022 2:33 PM CDT documented in this encounter Plan of Treatment Not on file documented as of this encounter Visit Diagnoses Not on filedocumented in this encounter
--- OUTSIDE RECORDS SUMMARY | 2024-06-26 16:09 | XMS_ITS | Encounter Summary ---
Author Organization [employer] Address [address] [place] [address] Care Team Providers Care Ship Purser Name Role Phone Unavailable Primary Care Provider Unavailabl e Encounter Details Date Type Department Care Team (Late st Contact Info) Description 03/27/[address] [facility] [place] [address] [place] [address] ProviderVineet MD [facility] [place] [address] Social History Tobacco Use Types Packs/Day Years Used Date Smoking Tobacco: Never Assessed Comments Unknown Sex and Gender Information Value Date Recorded Sex Assigned at Not on file Legal Sex Female 3:37 PM CDT Gender Identity Not on file Sexual Orientation Not on file documented as of this encounter Miscellaneous Notes * Cerner Conversion Note - Vineet Fitzgerald MD - 03/27/2019 2:34 PM CDT [place] [id number] PAT MURPHY SERGIO :1990 Visit Time:03/27/2019 Your Visit Summary Your Care Team Admitting Physician - LAUREN ESCOBAR MD-OBG Attending Physician - LAUREN ESCOBAR MD-OBG Primary Care Physician - KLEBER GREENE (REF)MD-[facility] Referring Physician - LAUREN ESCOBAR MD-OBG Discharge Vitals Temperature 36.8 ??C Respiratory Rate 18 Blood Pressure 120/55 Medications What How Much When Instructions Next Dose insulin glargine (Lantus Solostar Pen 100 units/ mL subcutaneous solution) 91 Unit(s) SubCutaneous At Bedtime insulin lispro (HumaLOG KwikPen 100 units/ mL injectable solution) 30 Unit(s) SubCutaneous Three Times a Day With [...] sulfa drugs (HIVES, HIVES) Immunizations This Visit No Immunizations Found Education Materials Third Trimester of The third trimester is from week 28 through week 40 (months 7 through 9). This trimester is when your unborn baby (fetus) is growing very fast. At the end of the ninth month, the unborn baby is about 20 inches in length. It weighs about 6???10 pounds. Follow these instructions at home: Medicines ??? Take rkqt-jmy-ichdvwf and prescription medicines only as told by [...] 10/05/2010 Document Revised: 08/16/2017 Document Reviewed: 08/16/2017 [employer] Interactive Patient Education ?? 2019 [facility]. Gestational Diabetes Mellitus, Diagnosis Gestational diabetes (gestational [...] (6.7 mmol/L). ??? A1c (hemoglobin A1c) level: 6???6.5%. Follow these instructions at home: Questions to ask your doctor ??? You may want to ask these questions: ? Do I need to meet with a perioperative educator? ? What equipment will I need to care for myself at home? ? What medicines do I need? When should I take them? ? How often do I need to check my blood sugar? ? What number can I call if I have questions? ? When is my next doctor's visit? General instructions ??? Take twxj-ynt-uxofgpn and prescription medicines only as told by [...] 11/01/2016 Document Revised: 03/06/2018 Document Reviewed: 08/13/2016 [employer] Interactive Patient Education ?? 2019 [facility]. Emergency Awareness and Preventative Care STROKE is [...] Assistance with quitting is available by contacting 3-646-STYC-NOW. This is a free resource providing counseling, [...] This Visit (last charted value for your 03/27/2019 visit) Urinalysis 03/27/19 13:30:00 Ur RBC: 0-2 /HPF Urine Nitrite: Negative Urine Leukocyte Esterase: Moderate Ur Epithelial Cells: 20-50 /HPF Urine Appearance: Clear Urine Glucose Dipstick: Negative Urine Blood Dipstick: Negative Urine Urobilinogen Dipstick: 0.2 EU/dL -- Normal range between ( 0.2 and 1.0 ) Urine Protein Dipstick: Negative Ur Bacteria: 1+ Urine Color: Yellow Ur WBC: 10-20 /HPF Urine Ketones Dipstick: Negative Urine pH Dipstick: 6.0 -- Normal range between ( 6.0 and 8.0 ) Urine Bilirubin Dipstick: Negative Urine Specific [place]: 1.017 -- Normal range between ( 1.005 and 1.030 ) Urine Type.: U CleanCatch Toxicology 03/27/19 13:30:00 UDS Amp: Negative UDS Lydia: Negative UDS Benzo: Negative UDS Wendy: Negative UDS Meth: Negative UDS Opi: Negative UDS Oxy: Negative UDS PCP: Negative UDS TCA: Negative UDS THC: Negative Buprenorphine Screen, Urine: Negative Heroin Metab (6AM) by LC-MS/MS, Urine: Negative SpGravity, Urine: 1.018 Propoxyphene, Urine: Negative UDS pH: 6.5 UDS Creatinine, Toxicology: 84.4 mg/dL Patient Name:PAT MURPHY SERGIO I have received and understand this information and was given the opportunity to ask questions. Patient/Glass Forming Engineer Name: Patient/Glass Forming Engineer Signature: Relationship to Patient: Clinician/Hospital Glass Forming Engineer Signature: Date: Electronically signed by Vladimir, [facility] Conversion Fisher Trot Line Juanita at 11/12/2022 2:34 PM CDT documented in this encounter Plan of Treatment Not on file documented as of this encounter Visit Diagnoses Not on filedocumented in this encounter
--- OUTSIDE RECORDS SUMMARY | 2024-06-26 16:09 | XMS_ITS | Encounter Summary ---
Author Organization [employer] Address [address] [place] [address] Care Team Providers Care Bottom Crane Operator Name Role Phone Unavailable Primary Care Provider Unavailabl e Encounter Details Date Type Department Care Team (Late st Contact Info) Description 04/06/2019 Transcribed Document [facility] [place] [facility] [place] [address] ProviderVineet MD [facility] [place] [address] Social History Tobacco Use Types Packs/Day Years Used Date Smoking Tobacco: Never Assessed Comments Unknown Sex and Gender Information Value Date Recorded Sex Assigned at Not on file Legal Sex Female 3:37 PM CDT Gender Identity Not on file Sexual Orientation Not on file documented as of this encounter Miscellaneous Notes * Cerner Conversion Note - Vineet Fitzgerald MD - 04/06/2019 9:30 AM CDT Final Discharge Planning Entered On: 04/06/2019 9:31 EDT Performed On: 04/06/2019 9:30 EDT by NATALI KAPADIA SW Final Discharge Planning Discharge Arrangements : Patient Post-Acute Information Patient Name: PAT MURPHY Gender: Female : [birth year] Age: 29 Years No Post-Acute Placement(s) Listed No Post-Acute Service(s) Listed No [place] Referral(s) Listed Discharge To Care Management : Home/Residential/[facility]ci or Self Care -01 NATALI KAPADIA SW - 04/06/2019 9:30 EDT documented in this encounter Plan of Treatment Not on file documented as of this encounter Visit Diagnoses Not on filedocumented in this encounter
--- OUTSIDE RECORDS SUMMARY | 2024-06-26 16:09 | XMS_ITS | Encounter Summary ---
Author Organization [employer] Address [address] [place] [address] Care Team Providers Care Planning Associate Name Role Phone Unavailable Primary Care Provider Unavailabl e Encounter Details Date Type Department Care Team (Late st Contact Info) Description 04/04/2019 Historic Encounter [facility] [address] [place] [address] Provider, [facility] Historical Social History Tobacco Use Types Packs/Day [...] Date/Time Associated Diagnosis Comments GLUCOSE-POC Routine 04/04/2019 6:09 PM EDT documented in this encounter Results * (ABNORMAL) Glucose, Point of Care (04/04/2019 6:09 PM EDT) Glucose POC2 64(L) 70 - 110 mg/dL 04/04/2019 10:09 PM EDT [facility] River Transportation Worker [id number] 04/04/2019 10:09 PM EDT [facility] Device SN [id number] 04/04/2019 10:09 PM EDT [facility] Blood 04/04/2019 6:09 PM EDT 04/04/2019 10:[address] [facility] Historical Provider POINT OF CARE TEST ALVIN DOUGLAS Final Result [facility] [address] [place], [place] [address] [phone] documented in this encounter Visit Diagnoses Not on filedocumented in this encounter
--- OUTSIDE RECORDS SUMMARY | 2024-06-26 16:09 | XMS_ITS | Encounter Summary ---
Author Organization [employer] Address [address] [place] [address] Care Team Providers Care Transportation Escort Name Role Phone Unavailable Primary Care Provider Unavailabl e Encounter Details Date Type Department Care Team (Late st Contact Info) Description 04/07/2019 Transcribed Document [facility] [place] [address] [place] [address] ProviderVineet MD [facility] [place] [address] Social History Tobacco Use Types Packs/Day Years Used Date Smoking Tobacco: Never Assessed Comments Unknown Sex and Gender Information Value Date Recorded Sex Assigned at Not on file Legal Sex Female 3:37 PM CDT Gender Identity Not on file Sexual Orientation Not on file documented as of this encounter Miscellaneous Notes * Cerner Conversion Note - Historical ProviderMD - 04/07/2019 5:00 AM CDT Chart Check - Review Order Profile Entered On: 04/07/2019 7:41 EDT Performed On: 04/07/2019 5:00 EDT by Vania Gee RN Chart Check Powerplans Initiated/Discontinued as Appropriate : Yes All Active Orders Reviewed : Yes Vania Gee RN - 04/07/2019 7:41 EDT documented in this encounter Plan of Treatment Not on file documented as of this encounter Visit Diagnoses Not on filedocumented in this encounter
--- OUTSIDE RECORDS SUMMARY | 2024-06-26 16:09 | XMS_ITS | Encounter Summary ---
Author Organization [employer] Address [address] [place] [address] Care Team Providers Care Plumber Name Role Phone Unavailable Primary Care Provider Unavailabl e Encounter Details Date Type Department Care Team (Late st Contact Info) Description 04/03/2019 Historic Encounter [facility] [address] [place] [address] Provider [facility] Historical Social History [...] Priority Date/Time Associated Diagnosis Comments AUTOMATED DIFFERENTIAL ([facility] DATA CONV) Routine 04/03/2019 11:57 PM EDT documented in this encounter Results * (ABNORMAL) AUTOMATED DIFFERENTIAL ([facility] DATA CONV) (04/03/2019 11:57 PM EDT) Neut% 72.9(H) 34.0 - 71.0 % 04/04/2019 4:07 AM EDT Lymph% 17.5(L) 19.3 - 53.0 % 04/04/2019 4:07 AM EDT [place]% 7.2 4.7 - 12.5 % 04/04/2019 4:07 AM EDT Eos% 1.3 1.0 - 7.0 % 04/04/2019 4:07 AM EDT Baso% 0.3 0.0 - 1.0 % 04/04/2019 4:07 AM EDT IG% 1 0 - 1 % 04/04/2019 4:07 AM EDT Neut# 10.48(H) 1.56 - 6.13 K/uL 04/04/2019 4:07 AM EDT Lymph# 2.51 1.18 - 3.74 K/uL 04/04/2019 4:07 AM EDT [place]# 1.04(H) 0.24 - 0.82 K/uL 04/04/2019 4:07 AM EDT Eos# 0.19 0.04 - 0.54 K/uL 04/04/2019 4:07 AM EDT Baso# 0.04 0.01 - 0.08 K/uL 04/04/2019 4:07 AM EDT IG# 0 0 - 0 x10(3)/uL 04/04/2019 4:07 AM EDT Blood 04/03/2019 11:5 7 PM EDT 04/04/2019 4:05 AM EDT Narrative [facility] - 04/04/2019 4:08 AM EDT Added by Discern Expert us Sle Historical Provider LAB BLOOD ORDERABLES Fi nal Result [facility] [address] [phone] documented in this encounter Visit Diagnoses Not on filedocumented in this encounter
--- OUTSIDE RECORDS SUMMARY | 2024-06-26 16:09 | XMS_ITS | Clinical Summary ---
Author Organization [facility] Address [address] [place], [place] [id number] Care Team Providers Care Installer Apprentice Name Role Phone Unavailable Primary Care Provider Unavailabl e Social History Tobacco Use Types Packs/Day Years Used Date Smoking Tobacco: Never Assessed Comments Unknown Sex and Gender Information Value Date Recorded Sex Assigned at Not on file Legal Sex Female 3:37 PM CDT Gender Identity Not on file Sexual Orientation Not on file Plan of Treatment Not on file Insurance [employer] [phone] BLUE CROSS/BLUE SHIELD
--- OUTSIDE RECORDS SUMMARY | 2024-06-26 16:09 | XMS_ITS | Encounter Summary ---
Author Organization [employer] Address [address] [place] [address] Care Team Providers Care Police Chief Deputy Name Role Phone Unavailable Primary Care Provider Unavailabl e Encounter Details Date Type Department Care Team (Late st Contact Info) Description 03/27/2019 Transcribed Document [facility] [place] Family Medicine [address] [place] [address] ProviderVineet MD [address] [place], [place] [address] Social History Tobacco Use Types Packs/Day Years Used Date Smoking Tobacco: Never Assessed Comments Unknown Sex and Gender Information Value Date Recorded Sex Assigned at Not on file Legal Sex Female 3:37 PM CDT Gender Identity Not on file Sexual Orientation Not on file documented as of this encounter Miscellaneous Notes * Cerner Conversion Note - Vineet ProviderMD - 03/27/2019 2:32 PM CDT Nursing Discharge Summary Entered On: 03/27/2019 14:33 EDT Performed On: 03/27/2019 14:32 EDT by PAPITO FREEMAN RN Discharge Documentation Discharge Date/Time : 03/26/2019 14:32 EDT Patient Disposition, General : Discharge Discharge To : Other: home with follow up appointment Mode Of Departure, General Discharge : Ambulatory Accompanied By, Discharge : Unaccompanied Medications Given to Patient : No Personal Belongings With Patient : Yes Prescriptions Given to Patient : No PAPITO FREEMAN RN - 03/27/2019 14:32 EDT documented in this encounter Plan of Treatment Not on file documented as of this encounter Visit Diagnoses Not on filedocumented in this encounter
--- OUTSIDE RECORDS SUMMARY | 2024-06-26 16:09 | XMS_ITS | Encounter Summary ---
Author Organization [employer] Address [address] [place] [address] Care Team Providers Care Painter Mirror Name Role Phone Unavailable Primary Care Provider Unavailabl e Encounter Details Date Type Department Care Team (Late st Contact Info) Description 04/04/2019 Transcribed Document [facility] [place] [address] [place] [address] ProviderVineet MD [address] [place] [address] Social History Tobacco Use Types Packs/Day Years Used Date Smoking Tobacco: Never Assessed Comments Unknown Sex and Gender Information Value Date Recorded Sex Assigned at Not on file Legal Sex Female 3:37 PM CDT Gender Identity Not on file Sexual Orientation Not on file documented as of this encounter Miscellaneous Notes * Cerner Conversion Note - Historical ProviderMD - 04/04/2019 12:34 PM CDT Patient: PAT KERN Age: 29 Years Sex: Female : 1990 Pt starting to feel contractions getting stronger. Not quite ready for epi but does plan to have one. VE 3-4/70/-2 AROM - small amt clear fluid noted fhr 130s, moderate variability, +accels, +occ variable noted -- reassuring Anitcipaing . may have epi when she's uncomfortable. documented in this encounter Plan of Treatment Not on file documented as of this encounter Visit Diagnoses Not on filedocumented in this encounter
--- OUTSIDE RECORDS SUMMARY | 2024-06-26 16:09 | XMS_ITS | Encounter Summary ---
Author Organization [employer] Address [address] [place] [address] Care Team Providers Care Yard Jacker Name Role Phone Unavailable Primary Care Provider Unavailabl e Encounter Details Date Type Department Care Team (Late st Contact Info) Description 03/27/2019 Transcribed Document [facility] [place] Family Medicine [facility] [place] [address] ProviderVineet MD [facility] [place] [address] Social History Tobacco Use Types Packs/Day Years Used Date Smoking Tobacco: Never Assessed Comments Unknown Sex and Gender Information Value Date Recorded Sex Assigned at Not on file Legal Sex Female 3:37 PM CDT Gender Identity Not on file Sexual Orientation Not on file documented as of this encounter Miscellaneous Notes * Cerner Conversion Note - Vineet Fitzgerald MD - 03/27/2019 1:09 PM CDT Admission Data, OB Entered On: 03/27/2019 13:12 EDT Performed On: 03/27/2019 13:09 EDT by PAPITO FREEMAN RN Advance Directive Patient has Advance Directive *Q : No, patient requests information about Advance Directive PAPITO FREEMAN RN - 03/27/2019 13:09 EDT Height and Weight Height Source : Stated Height Entry Format : [place] Height, Feet : 5 ft(Converted to: 152 cm, 60 Inch) Clinical Height : 172.72 cm Height, Inches : 8 Inch(Converted to: 0 ft 8 Inch, 20.32 cm) Weight Source : Standing scale Weight Entry Format : [place] Weight, Pounds : 305 lb Clinical Dosing Weight : 138.64 kg Body Surface Area (BSA) : 2.45 m2 Body Mass Index : 46.5 kg/m2 (>HHI) [place] Body Weight (IBW) : 63.45 kg PAPITO FREEMAN RN - 03/27/2019 13:09 EDT Health Histories Smoking Status : Never (less than 100 in lifetime; none in last 30 days) Smokeless Tobacco Status : Never PAPITO FREEMAN RN - 03/27/2019 13:09 EDT Social History (As Of: 03/27/2019 13:12:43 EDT) Gestational Age Gestational Age Person Gestational Age At : 37 weeks 5 days Method : Comment : Tetanus Immunization Status Previous Tetanus Immunizations : No qualifying data available. PAPITO FREEMAN RN - 03/27/2019 13:09 EDT Influenza Vaccine Asmt, Adult Previous Vaccines from Immunization Schedule : No qualifying data available. Influenza Immunization, Current Season : Yes PAPITO FREEMAN RN - 03/27/2019 13:09 EDT Pneumococcal Vaccine Previous Vaccines from Immunization Schedule : No qualifying data available. Pneumonia Immunization Received : No Pneumococcal Risk Assessment < Age 65 : Diabetes Pneumococcal Vaccine Contraindications : PAPITO FREEMAN RN - 03/27/2019 13:09 EDT Order Details Transport Mode Order Detail : Ambulatory Order Detail : 1 IV Order Detail : 0 Oxygen Order Detail : 0 Nurse Collect Order Detail : 1 Lift/Transfer : Independent Central Line Order Detail : No Arterial Line : No PAPITO FREEMAN RN - 03/27/2019 13:09 EDT Vital Measurements Temperature Source : Oral Temperature Mode : Fahrenheit Temperature, Fahrenheit : 98.2 Deg F Clinical Temperature, C : 36.8 Deg C Pulse Method : Non-Invasive BP Device Peripheral Pulse Rate : 78 bpm Pulse Rhythm : Regular Respiratory Rate : 18 Breaths/Min Blood Pressure Source : Non-Invasive BP Device Blood Pressure Position : Sitting Systolic Blood Pressure : 120 mmHg Diastolic Blood Pressure : 55 mmHg (LOW) PAPITO FREEMAN RN - 03/27/2019 13:09 EDT Infectious Disease History Infectious Disease History : Chicken pox/Shingles Fever/Chills Last 48 Hours : No Travel To Regions with Travel Advisories : No Travel Outside [place] Within Last 30 Days : No Contact With Traveler to Advisory Region : No Tuberculosis Symptoms : None PAPITO FREEMAN RN - 03/27/2019 13:09 EDT documented in this encounter Plan of Treatment Not on file documented as of this encounter Visit Diagnoses Not on filedocumented in this encounter
--- OUTSIDE RECORDS SUMMARY | 2024-06-26 16:09 | XMS_ITS | Referral Summary ---
Author Organization [employer] [facility] [employer] Address [address] [place], [place] [address] Care Team Providers Care Wire Rigger Name Role Phone Unavailable Primary Care Provider Unavailabl e Social History Tobacco Use Types Packs/Day Years Used Date Smoking Tobacco: Never Assessed Comments Unknown Sex and Gender Information Value Date Recorded Sex Assigned at Not on file Legal Sex Female 3:37 PM CDT Gender Identity Not on file Sexual Orientation Not on file Plan of Treatment Not on file Insurance [employer] [id number] BLUE CROSS/BLUE SHIELD
--- OUTSIDE RECORDS SUMMARY | 2024-06-26 16:09 | XMS_ITS | Encounter Summary ---
Author Organization [employer] Address [address] [place] [address] Care Team Providers Care Director Television Name Role Phone Unavailable Primary Care Provider Unavailabl e Encounter Details Date Type Department Care Team (Late st Contact Info) Description 04/11/2019 Transcribed Document [facility] [place] Family Medicine [facility] [place] [address] ProviderVineet MD [facility] [place] [address] Social History Tobacco Use Types Packs/Day Years Used Date Smoking Tobacco: Never Assessed Comments Unknown Sex and Gender Information Value Date Recorded Sex Assigned at Not on file Legal Sex Female 3:37 PM CDT Gender Identity Not on file Sexual Orientation Not on file documented as of this encounter Miscellaneous Notes * Cerner Conversion Note - Vineet Fitzgerald MD - 04/11/2019 10:14 AM CDT [facility] Authorization Entered On: 04/11/2019 10:16 EDT Performed On: 04/11/2019 10:14 EDT by Rissa Varela Rn-Utilization Review Primary Insurance Authorization Authorization and Policy Numbers : Insurance 1 Health Plan: [facility] Policy Number: [id number] Authorization Number: [id number] Insurance Primary Name : Devonte [id number] Authorization Status-Primary : Admit approved Authorization Fax Number-Primary : [phone] Auth/Referral Phone Number-Primary : [place] [phone] ext [phone] Reference Number-Primary : [id number] Authorization Number-Primary : [id number] Number of Days Authorized-Primary : 4 Authorized Service Begin Date-Primary : 04/03/2019 EDT Authorized Service End Date-Primary : 04/06/2019 EDT Authorization Comments-Primary : Dk Michele at [facility] [employer] covered the laboring days 04/03/19-04/05/19. after delivery falls under federal mandate and no auth required for additional days. Reference number [id number] Historical Authorization Comments-Primary : Comment 1: Algood still pending for 1 more day per availity (SINDHU LOVETT, RN-Utilization Review 04/11/2019 09:52) Comment 2: Additional clinicals faxed to [facility] for last day 04-06-19 (Rissa Varela, Rn-Utilization Review 04/09/2019 14:41) Comment 3: Algood approved per Marlee for 3 days -- nrd 04/06 (SINDHU LOVETT, PATSY-Utilization Review 04/05/2019 10:58) Comment 4: Auth initiated and delivery clinicals submitted via [employer] (GUNNAR KEITA, Rn-Utilization Review 04/05/2019 09:36) Rissa Varela, Patsy-Utilization Review - 04/11/2019 10:14 EDT Electronically signed by Shereen Gilbert Conversion Review Scheduling Coordinator Cerner at 11/12/2022 2:46 PM CDT documented in this encounter Plan of Treatment Not on file documented as of this encounter Visit Diagnoses Not on filedocumented in this encounter
--- OUTSIDE RECORDS SUMMARY | 2024-06-26 16:09 | XMS_ITS | Encounter Summary ---
Author Organization [employer] Address [address] [place] [address] Care Team Providers Care Net Developer Contract Name Role Phone Unavailable Primary Care Provider Unavailabl e Encounter Details Date Type Department Care Team (Late st Contact Info) Description 04/05/2019 Transcribed Document [facility] [place] [address] [place] [address] ProviderVineet MD [facility] [place] [address] Social History Tobacco Use Types Packs/Day Years Used Date Smoking Tobacco: Never Assessed Comments Unknown Sex and Gender Information Value Date Recorded Sex Assigned at Not on file Legal Sex Female 3:37 PM CDT Gender Identity Not on file Sexual Orientation Not on file documented as of this encounter Miscellaneous Notes * Cerner Conversion Note - Vineet Fitzgerald MD - 04/05/2019 12:00 PM CDT Pain Assessment Entered On: 04/05/2019 13:01 EDT Performed On: 04/05/2019 12:34 EDT by SINDHU MCCOY RN Intervention Information: ibuprofen Performed by SINDHU MCCOY RN on 04/05/2019 11:34:12 EDT ibuprofen,600mg Oral Pain Assessment Pain Assessment : Follow-up assessment Pain Scale Used : 0-10 Scale SINDHU MCCOY RN - 04/05/2019 13:01 EDT Pain Scale Intensity : 0 SINDHU MCCOY RN - 04/05/2019 13:01 EDT Image 4 - Images currently included in the form version of this document have not been included in the text rendition version of the form. Electronically signed by Shreeen Gilbert Conversion Underground Distribution Engineer Cerjulia at 11/12/2022 2:32 PM CDT documented in this encounter Plan of Treatment Not on file documented as of this encounter Visit Diagnoses Not on filedocumented in this encounter
--- OUTSIDE RECORDS SUMMARY | 2024-06-26 16:09 | XMS_ITS | Data Portability ---
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 She was found to have evidence of Celiac disease on gross endoscopic evaluation and duodenal biopsy c/w Khan grade 3c Celiac disease on 09/03/2022. -Will obtain HLA typing and comprehensive celiac panel. -She was instructed to implement a strict gluten free diet. She was provided care instructions regarding celiac disease and recommended diet. -Will obtain additional nutritional labs to evaluate for possible malabsorption -She will discuss EGD findings with Bariatrics as this may effect their plans for surgery. -I recommended she take a daily women's multivitamin. -Plan to repeat EGD after 12-24 months of a gluten free diet to evaluate for mucosal healing. [email or web address] Not available 10/14/2022 09:46:11 Plan of Treatment Reminders Order Date Submit Date Provider Last Modified By Organization Details Last Modified Time Details Appointments None record ed. Lab CBC w/ auto diff 2021 023 ANDREA Not available 3 11:17:25 CMP, serum or plasma 2021 023 Not available 3 10:59:10 HbA1c (hemog lobin A1c), blood 2021 023 [email or web address] Not available 3 10:59:10 lipid panel, blood 2021 023 Not available 3 10:59:10 TSH, serum or plasma 2021 023 [email or web address] Not available 3 10:59:10 iron + TIBC + ferrit in, serum 2021 023 Not available 3 10:59:11 folate , qual, blood 2021 023 [email or web address] Not available 3 10:59:11 folate , serum 2021 023 [email or web address] Not available 3 10:59:11 mma (methy lmalon ic acid), serum 2021 023 ANDREA Not available 3 11:21:36 vitami n B1 (avelina ine), blood 2021 023 [email or web address] Not available 3 10:59:11 vitami n D, 25-hyd josefina, total, serum 2021 023 Not available 3 10:59:11 vitami n A (retin ol), serum 2021 023 [email or web address] Not available 3 10:59:12 vitami n E, serum 2021 023 [email or web address] Not available 3 10:59:12 PTH (parat hyroid hormon e), intact , serum or plasma 2021 023 [email or web address] Not available 3 10:59:12 celiac diseas e compre hensiv e panel, serum [address] (Registration ), [address] , [place], [address], 3 08:06:25 HLA typing for celiac diseas e panel, blood [address] (Registration ), [address], [place], [address], 3 08:06:26 zinc, serum or plasma [address] (Registration ), [address], [place], [address], 3 08:06:26 copper , serum or plasma [address] (Registration ), [address], [place], [address], 3 08:06:26 carote ne, serum [address] (Registration ), [address], [place], [address], 3 08:06:26 Referral None record ed. Procedures None record ed. Surgeries None record ed. Imaging XR, chest, 2 view 2021 023 ANDREA Not available 3 15:49:21 electr ocardi ogram, routin e ECG, 12 leads min 2021 023 [email or web address] Not available 3 11:07:11 electr ocardi ogram 2022 023 [email or web address], [address] [facility] [address], [place], [address], 3 11:12:31 Medication Orders None record ed. Patient TargetsNo targets recorded. Patient Instructions Encounter Date Encounter Id Patient Instructions Last Modified By Organization Details Last Modified Time 10/14/2022 [id number] gluten-free diet : care instructions [email or web address] Not available 10/14/2022 09:34:27 celiac disease: care instructions [email or web address] Not available 10/14/2022 09:34:27 DATE OF OPERATIO N: 09/03/2022 SURGEON: Aleks Danielle MD PROCEDURE: EGD. INDICATION FOR PROCEDURE: The patient is a very pleasant 32-year-old female with dyspeptic symptoms considering bariatric surgery. ASA SCORE: III. ANESTHESIA: MAC anesthesia provided by Anesthesia Department. PROCEDURE IN DETAIL: After informed consent, the patient was positioned in the left lateral decubitus position. A standard gastroscope was advanced from mouth to the second portion of duodenum without difficulty. The patient's toleration of the scope passage was excellent. The quality of views was excellent. The scope was withdrawn. The mucosa was carefully examined. Within the esophagus, the Z-line was identified at 35 cm from the incisors and was normal and symmetric in appearance. The stomach appeared normal. Biopsies were performed to evaluate for CLOtest. Retroflexion was performed in the fundus and showed a normal fundus and cardia. The first and second portions of the duodenum showed somewhat scalloped appearance of the duodenal mucosa suggestive of possible celiac sprue. Biopsies performed. COMPLICATIONS: None. ESTIMATED BLOOD LOSS: Minimal. CONCLUSION: Normal esophagus. Normal stomach. Biopsies performed. Scalloped appearance of the duodenum suggestive of possible celiac sprue. Biopsies performed. RECOMMENDATIONS: The biopsy specimen reviewed, and the patient will follow up. PATH: Duodenal biopsy: Severe villous blunting and intraepithelial lymphocytes compatible with March grade 3 C celiac disease. RONY test was negative. [email or web address] Not available 10/14/2022 08:15:10 Reason for Referral None Reported. Results Created Date Observation Date Name Description Value Unit Range Abnormal Flag Note LastModifiedBy Organization Detail LastModifiedTime 09/03/1909/04/[address] (H PYLOR I AB QUAL) rony test 20 min NEGATI VE negati ve Not Available [facility] ([facility]) [address] [place], [address], 09/04/2022 09:47:35 09/03/19 23 09/04/[address] (H PYLOR I AB QUAL) rony test 1HR NEGATI VE negati ve Not Available [facility] ([facility]) [address], [place], [address], 09/04/2022 09:47:35 09/03/19 23 09/04/[address] (H PYLOR I AB QUAL) rony test 3 HR NEGATI VE negati ve Not Available [facility] ([facility]) [address] [facility], [place], [address], 09/04/2022 09:47:35 09/03/19 23 09/04/[address] (H PYLOR I AB QUAL) rony test 24 HR NEGATI VE negati ve Not Available [facility] ([facility]) [address] [facility], [place], [address], 09/04/2022 09:47:35 09/03/19 23 09/04/[address] (H PYLOR I AB QUAL) rony test kit lot# [id number] 3 Not Available [facility] ([facility]) [address], [place], [address], 09/04/2022 09:47:35 09/03/19 23 09/04/[address] (H PYLOR I AB QUAL) rony test kit exp date 2022 Not Available [facility] ([facility]) [address] [facility], [place], [address], 09/04/2022 09:47:35 08/27/19 23 08/30/2022 elect rita reece am No observ ation record ed. [email or web address] [facility] [address] [facility] [address], [place], [address], 08/30/2022 15:37:06 09/14/19 23 09/14/2022 XR, chest , 2 view No observ ation record ed. [facility] (Radiology) [address], [place], [address], 09/16/2022 09:23:09 09/16/19 23 09/14/2022 XR, chest , 2 view No observ ation record ed. [facility] (Radiology) [address], [place], [address], 09/17/2022 12:33:08 02/14/20 24 02/14/2024 US, echoc ardio gram, trans thora cic, compl ete, w/ color flow [facility] [address] [place] [address] Phone: Fax: Name: FRANCK GARCÍA ND Exam Date: 024 : 988 Age 33 years Gender : F Access ion: [id number] Physic ervin: PUNLeena, FAITH OPHER Facili ty: [facility] Facili ty HSV: Outpat ient Exam: ECHOCA RDIOGR AM Conclu sions: 1. Normal LV size and functi on. 2. Estima dexter left ventri cular ejecti on fracti on is 55-60% . 3. There is no signif icant valvul ar stenos is or regurg itatio n by Dopple r flow analys is. Findin gs: Left Ventri ayaka:No rmal left ventri cular dimens ion. Normal left ventri cular systol ic functi on. Left ventri cular ejecti on fracti on estima dexter by 2D at 55-60 percen t. No left ventri cular thromb us noted. Diasto lic Functi on:Felicia lysis of mitral valve inflow , pulmon tan vein Dopple r and tissue Dopple r sugges ts normal diasto lic functi on withou t elevat ed left atrial pressu re. Right Ventri ayaka:No rmal right ventri cular size and functi on. Left Atrium :Carina l left atrial size. Right Atrium :Carina l right atrial size. Mitral Valve: Normal mitral valve struct ure and functi on. Tricus pid Valve: Normal tricus pid valve struct ure and functi on. Aortic Valve: Normal aortic valve struct ure and functi on. Pulmon ic Valve: Normal pulmon ic valve struct ure and functi on. Aorta: The aortic root is normal . Perica rdium: Normal perica rdium. Electr onical ly signed HARPREET HERNANDEZ MD 8:01 PM Study Data 2D Measur ements RVIDd: 3.13 (1.9-2 .6) cm LVIDd: 4.18 (4.2-5 .9) cm LVIDs: 2.83 (2.1-4 .0) cm IVSDd: 1.13 (0.6-1 .0) cm LVPWd: 1.07 (0.6-1 .0) cm EF:61. 14 (>=55) % FS:32. 43 (25-43 ) % SV:47. 53 (70-10 0) ml EDV:77 .74 (67-15 5) ml ESV:30 .21 (22-58 ) ml M-MODE Measur ements Aortic Root:3 .31 (2.0-3 .7) cm LA/AR Ratio: 0.95 Mitral Valve Peak E:0.87 (0.6-1 .3) m/s Peak A:0.59 (<=.7) m/s E/A Ratio: 1.46 (.75-1 .5) PHT:46 .96 ms MVA by PHT:4. 68 (4-6) cm2 DS:535 .25 cm/s2 DT:161 .94 (<=200 ) ms Tricus pid Valve Aortic Valve Peak:1 .46 (<=2.5 ) m/s Peak Grad:8 .58 (<=16) mmHg LVOT PV:1.1 1 (0.7-1 .1) m/s Legall y authen ticate d by KINGS Stern MD 02-13 09:58: 13 LVOT P.9 2 mmHg Pulmon ic Valve Report for FRANCK GARCÍA DUNG [id number] on 4 Dictat ed By: HARPREET VENTURA Transc ribed By: JADIEL MORALES Transc ribed On: 9:52 AM Electr onical ly signed by: HARPREET VENTURA Thank you for referr zeb SHAHIDNEEL RAZOFRANCK to [facility] al. Legall y authen ticate d by KINGS Stern MD 7-23 09:58: 13 CC'ed Logic: Orderi ng Provid er: KINGS Stern Attend ing Provid er: ANUP MERIDA Referr ing Provid er: ANUP MERIDA Admitt ing Provid er: ANUP MERIDA [facility] ([facility]) [address] , [place], [address], 02/20/2024 13:50:40 Result Notes None recorded. Problems Name Problem SNOMED Code Status Onset Date Resolution Date Notes Provider Name and Address Organization Details Recorded Time Type 2 diabetes mellitus without complication 797453585 Active 2022 VIBHA Austin [address], [place], [address] , [place] [facility] - [place] & [place] 3 09:05:09 Cigarette smoker 69351410 Active 2022 Zane Garcia MD [address], [place], [address] , [place] [facility] [place] [facility] [place] 3 11:30:32 Morbid obesity 687108198 Active 2022 Zane Garcia MD [address], [place], [address] , [place] [facility] [place] & [place] 3 16:44:49 Celiac disease 005539539 Active 2022 Audi Cazares PA-C [address], [place], [address] , [place] [facility] [place] & [place] 3 08:15:17 Fatty stool 35007783 Active 2022 Audi Cazares PA-C [address], [place], [address] , [place] [facility] [place] & [place] 3 09:42:02 Obesity 526366442 Active 2022 Audi Cazares PA-C [address], [place], [address] , [place] [facility] & [place] 3 09:45:35 Problem Notes None recorded. Procedures Surgical History Date Name Laterality Status Provider Name and Address Organization Details Recorded Time procedure on urinary bladder completed VIBHA Austin [address], [place], [address], [facility] - [place] - [place] & [place] 07/29/2022 11:52:47 Imaging Results Imaging Date Name Status LastModified by Organization Details LastModified Time 08/30/2022 electrocardiogram completed [address] [facility] [address], [place], [address], 08/30/2022 15:37:06 09/14/2022 XR, chest, 2 view completed [facility] (Radiology) [address] [place], [address], 09/16/2022 09:23:09 09/14/2022 XR, chest, 2 view completed [facility] (Radiology) [address] [place], [address], 09/17/2022 12:33:08 02/14/2024 US, echocardiogram, transthoracic, complete, w/ color flow completed [facility] ([facility]) [address] [place], [address], 02/20/2024 13:50:40 Procedure Notes None recorded. Medical Equipment None Reported. Allergies Allergen ID Allergen Name Allergen Category Reaction Reaction Severity Criticality Documentation Date Start Date Code Code System Note Provider Name and Address Organization Details Recorded Time 37674 Substance with sulfonami de structure and antibacte rial mechanism of action (substanc e) medicatio n Not available Not available Not available 07/21/2022 71322 8003 SNOMED Bing jeter, [facility] & [place] 2 12:27:56 18755 Cipro medicatio n Not available Not available Not available 07/21/202217747 3 RxNorm Bing jeter, [facility] & [place] 2 12:28:03 Medications Name Sig Start Date Stop Date Status Note LastModified by Organization Details LastModified Time amoxicillin 500 mg capsule TAKE 1 CAPSULE BY MOUTH THREE TIMES DAILY 07/21 completed Not Available Not Available Not Available methocarbam ol 500 mg tablet TAKE 1 TABLET BY MOUTH THREE TIMES DAILY NEEDED FOR MUSCLE SPASM active Not Available Not Available No t Available bupropion HCl SR 150 mg tablet,12 hr sustained-r elease TAKE 1 TABLET BY MOUTH TWICE DAILY active Not Available Not Available No t Available trazodone 50 mg tablet TAKE 1/2 TO 1 (ONE-HALF TO ONE) TABLET BY MOUTH AT BEDTIME NEEDED FOR SLEEP active Not Available Not Available No t Available oxybutynin chloride ER 10 mg tablet,exte nded release 24 hr active Not Available Not Available Not Available azithromyci n 250 mg tablet 10/14 completed Not Available Not Available Not Available ibuprofen 800 mg tablet TAKE 1 TABLET BY MOUTH EVERY 6 HOURS NEEDED FOR PAIN 07/21 completed Not Available Not Available Not Available phenazopyri dine 200 mg tablet TAKE 1 TABLET BY MOUTH EVERY 8 HOURS FOR PAIN FOR 2 DAYS 07/21 completed Not Available Not Available Not Available pseudoephed rine ER 120 mg tablet,exte nded release TAKE 1 TABLET BY MOUTH EVERY 12 HOURS NEEDED FOR NASAL CONGESTIO N 07/21 completed Not Available Not Available Not Available bupropion HCl SR 100 mg tablet,12 hr sustained-r elease Take 1 tablet every day by oral route. 08/27 completed Not Available Not Available Not Available oxycodone-a cetaminophe n 5 mg-325 mg tablet TAKE 1 TABLET BY MOUTH EVERY 6 HOURS NEEDED FOR PAIN 07/21 completed Not Available Not Available Not Available amoxicillin 875 mg tablet TAKE 1 TABLET BY MOUTH TWICE DAILY 07/21 completed Not Available Not Available Not Available Humalog U-100 Insulin 100 unit/mL subcutaneou s solution INJECT UP TO 105 UNITS DAILY VIA INSULIN PUMP active Not Available Not Available No t Available cephalexin 500 mg capsule TAKE 1 CAPSULE BY MOUTH THREE TIMES DAILY 07/21 completed Not Available Not Available Not Available buspirone 10 mg tablet Take 1 tablet twice a day by oral route. 10/14 completed Not Available Not Available Not Available gabapentin 100 mg capsule Take 1 capsule 3 times a day by oral route. active Not Available Not Available No t Available methylpredn isolone 4 mg tablets in a dose pack TAKE DIRECTED BY MOUTH FOR 6 DAYS 08/27 completed Not Available Not Available Not Available bromphenira mine-pseudo ephedrine-D M 2 mg-30 mg-10 mg/5 mL oral syrup TAKE 5 ML BY MOUTH EVERY 6 HOURS NEEDED FOR COUGH 08/27 completed Not Available Not Available Not Available cefdinir 300 mg capsule TAKE 1 CAPSULE BY MOUTH TWICE DAILY FOR 10 DAYS 07/21 completed Not Available Not Available Not Available amoxicillin 875 mg-potassiu m clavulanate 125 mg tablet TAKE 1 TABLET BY MOUTH TWICE DAILY active Not Available Not Available No t Available buspirone 15 mg tablet TAKE 1 TABLET BY MOUTH TWICE DAILY active Not Available Not Available No t Available escitalopra m 20 mg tablet TAKE 1 TABLET BY MOUTH ONCE DAILY active Not Available Not Available No t Available sodium fluoride 1.1 % dental paste 08/27 completed Not Available Not Available Not Available Humalog KwikPen (U-100) Insulin 100 unit/mL subcutaneou s 1:5 CARB RATIO AND 1:20 CORRECTIO N. MAX DAILY DOSE 40 UNITS INJECTED UNDER THE SKIN DAILY. USE IN THE EVENT IF INSULIN PUMP MALFUCTIO N. 08/27 completed Not Available Not Available Not Available Nexplanon 68 mg subdermal implant Inject by subcutane ous route. active Not Available Not Available No t Available BD Insulin Syringe Ultra-Fine 0.5 mL 31 gauge x 12/07 USE 1 SYRINGE THREE TIMES DAILY. USE FOR HUMALOG AND FOR HIGH NUMBERS IF INSULIN PUMP MALFUNCTI ON. 07/26 completed Not Available Not Available Not Available Vraylar 1.5 mg capsule TAKE 1 CAPSULE BY MOUTH ONCE DAILY active Not Available Not Available No t Available Ozempic 0.25 mg or 0.5 mg (2 mg/1.5 mL) subcutaneou s pen injector INJECT 0.25 MG UNDER THE SKIN ONCE A WEEK FOR 1 WEEK. THEN INCREASE TO 0.5 MG ONCE A WEEK THERE AFTER 07/21 completed Not Available Not Available Not Available Dexcom G6 Sensor device USE 1 SENSOR DIRECTED active Not Available Not Available No t Available Dexcom G6 Transmitter device USE DIRECTED active Not Available Not Available No t Available BD Nithya 2nd Gen Pen Needle 32 gauge x 508/27 completed Not Available Not Available Not Available Ozempic 1 mg/dose (4 mg/3 mL) subcutaneou s pen injector INJECT 1 MG UNDER THE SKIN INTO THE APPROPRIA TE AREA ONCE A WEEK DIRECTED active Not Available Not Available No t Available Semglee (insulin glargine-yf gn) Pen 100 unit/mL (3 mL) subcutaneou s INJECT 30 UNITS SUBCUTANE OUSLY INTO THE APPROPRIA TE AREA ONCE DAILY DIRECTED. 07/26 completed Not Available Not Available Not Available Vitals Date Recorded Body height Body mass index (BMI) Body weight Heart rate Body temperature Systolic blood pressure Diastolic blood pressure Provider Name and Address Organization Details Last Updated DateTime 3 172.72 cm 43.2 kg/m2 672095. 67 g 68 /min 97.4 [degF] 128 mm[Hg] 93 mm[Hg] Addison santos [place] - [facility] - [place] & [place] 3 10:55:42 Date Recorded Body height Provider Name an d Address Organization Details Last Updated DateTime 08/27/2022 172.72 cm Tara Cardoza [place] - [facility] - [facility] & [place] 08/27/2022 11:09:57 Date Recorded Body height Body mass index (BMI) Body weight Heart rate Systolic blood pressure Diastolic blood pressure Provider Name and Address Organization Details Last Updated DateTime 3 172.72 cm 43.8 kg/m2 441341. 6 g 92 /min 124 mm[Hg] 74 mm[Hg] Frances PAZ - [facility] & [place] 3 08:54:55 Social History Question Answer Notes LastModified by Organizat ion Details LastModified Time Tobacco Smoking Status Current Every Day Smoker Bing Rivera [facility], [place] - [facility] & [place] 07/21/2022 12:31:44 Do You Have An Advance Directive? No Information not available 08/27/2022 What Is Your Level Of Alcohol Consumption? None [email or web address] Information not available 07/21/2022 Are You Blind Or Do You Have Difficulty Seeing? No Information not available 08/27/2022 What Was The Date Of Your Most Recent Tobacco Screening? 07/26/2022 Information not available 08/27/2022 Are You Passively Exposed To Smoke? Yes Information not available 08/27/2022 Do You Or Have You Ever Used Smokeless Tobacco? Former Smokeless Tobacco User Information not available 08/27/2022 How Much Tobacco Do You Smoke? 0.5 PPD Information not available 08/27/2022 Do You Feel Stressed (tense, Restless, Nervous, Or Anxious, Or Unable To Sleep At Night)? [id number] Information not available 08/27/2022 Do You Use Any Illicit Or Recreational Drugs? No [email or web address] Information not available 07/21/2022 How Many Years Have You Smoked Tobacco? 15 Information not available 08/27/2022 Sex: Unknown Functional Status Question Answer Note LastModified by Organizat ion Details LastModified Time What is your exercise level? Occasional Information not available 08/27/2022 Mental Status None recorded. Family History Relationship Description Onset Age of this Age Resolved Age Notes LastModified by Organization Details LastModified Time Father Diabetes mellitus [email or web address] Not available 08/27/2022 10:14:50 Father Heart disease [email or web address] Not available 12:31:26 Mother Hypertensive disorder [email or web address] Not available 12:31:16 Medical History Condition Response Other Y Kidney Stones Y Depression Y Anxiety Disorder Y Diabetes Y Gynecological History Statement/Question Response Menses Monthly N Abnormal Pap N Current Control Method Implant Age at Menarche 27 Sexually Active? Y Obstetrics History GPAL:G 0 P 0 0 0 0 Immunizations Vaccine Type Date Status Provider Name and Address Organization Details Recorded Time COVID-19, mRNA, LNP-S, PF, 100 mcg/0.5mL dose or 50 mcg/0.25mL dose 12/05/[address], [place] [address] , [place], [address], [facility] & [place] 11/10/2022 15:35:57 COVID-19, mRNA, LNP-S, PF, 100 mcg/0.5mL dose or 50 mcg/0.25mL dose 01/02/[address], [place] [address] [facility], [place], [address], [facility] - [facility] & [place] 11/10/2022 15:35:57 Tdap 11/15/[address], [place] [address] [facility], [place], [address], [place] - [facility] & [place] 11/10/2022 15:35:57 Tdap 04/06/[address], [place] [address] [facility], [place], [address], [facility] - [facility] & [place] 11/10/2022 15:35:57 Past Encounters Encounter ID Performer Location Encounter Start Date Encounter Closed Date Diagnosis/Indication Diagnosis SNOMED-CT Code Diagnosis ICD10 Code [id number] VIBHA Austin [facility] [address] [facility] [address] [place] [address] 07/29/2022 08:17:21 07/29/2022 12:18:13 Obesity 953829222 E66.9 Type 2 teagan betes mellitus without complication 455844663 E11.9 Tobacco user 640352501 Z 72.0 Nonulcer dyspepsia 67570 07 K30 [id number] Zane Garcia MD [facility] [address] [facility] [address] [place] [address] 08/27/2022 09:57:42 08/27/2022 11:35:15 Pre-surgery evaluation 724107715 Z01.818 Cigarette smoker 0723534 7 F17.210 Morbid obesity 486758792 E66.01 [id number] Audi Cazares PA-C [facility] [address] [facility] [address] [place] [address] 10/14/2022 08:45:42 10/14/2022 09:38:07 Celiac disease 245880486 K90.0 Fatty stool 11506815 R19 .5 Obesity 392931675 E66.9 Health Concerns Section Related Observation LastModified by Organization Detai ls LastModified Time None Recorded Concern Status LastModified by Organization Details LastModified Time None Recorded Advance Directives Directive N: Payers Encounter Date Sequence Insurance Name Policy Number Policy Butcher Covered Member ID Butcher Member ID Guarantor Name 07/29/2022 1 [place] [id number] A Blayne Murphy [id number] [address] 08/27/2022 1 [place] [id number] A Blayne R [place] [id number] 10/14/2022 1 [place] [id number] A Blayne R Jeffrey [id number] Notes Date Note Type Note Provider Name and Address Organization Details Recorded Time 3 text/html Patient presents today for the initial evaluation with an interest in bariatric surgery. Patients first choice for bariatric surgery is [facility]. Patient has a history of insulin requiring diabetes. She is currently on a insulin pump since November 2020. patient is currently every day smoker.Pt has been overweight most of their life. Has been 100lbs or more over weight for __ years. Pt reports dyspnea joint pain and mobility issues related to excess weight.The pt is pursuing weight loss surgery because excess weight directly contributes to comorbidities including Diabetes PCOSDiets include calorie counting high protein/low carb diet. Pt site physical hunger and boredom as prompts to eat. Struggles with portion size. DIET HX:The patient states that they have been overweight since young adulthoodThe patient states that they have been 100 lbs or more overweight 10 years.The patient started dieting at the age of 22Dieting methods that have been most successful in losing weight are portion control/low carbThe most weight ever lost on a single dieting attempt was 30lbs and this was maintained until 2 monthsThe patient has attempted the following unsupervised diet attempts calorie counting, diabetic diet, meal replacmentsThe Patient has followed the following supervised diet attempts noneThe following OTC or prescribed medications have been utilized for weight loss noneBehavior treatments for weight loss that have been attempted in the past were noneThe patient has utilized the following modes of exercise to help with weight loss walking, swimmingThe patient has not use self induced behaviors to help them lose weight in the past.Currently the patient admits to an eating history of eating or snacking in the evening or night.The patient feels that the majority of their meals are prepared from restaurants.Common triggers for causing the patient to overeat are physical hunger. VIBHA Austin [address], [place], [phone], [facility] [place] 07/29/2022 13:44:41 3 text/html Patient is here for preoperative risk stratification and cardiac evaluation prior to bariatric surgeryReferred by: Dr. Pino Marquez The patient has good functional capacity, can walk 2-4 blocks without exertional chest pain or shortness of breath.No prior cardiac historyPatient denies any chest pain, shortness of breath PND orthopnea palpitations presyncope syncope + smoker- working on quitting+ Dyslipidemia+Obstructive sleep apnea+ obesity BMI over 40 -now considering surgery EKG : NSR 79 , normal axis, normal intervals Zane Garcia MD [address] , [place], [phone], [facility] [place] 08/27/2022 16:45:05 3 text/html Very pleasant 32-year-old female who presents to the office today for procedure follow-up. She underwent EGD on September 03, 2022 for preoperative bariatric evaluation. She was noted to have a scalloped appearance of the duodenum suggestive of possible celiac sprue. Duodenal biopsy showed severe villous blunting and intraepithelial lymphocytes compatible with September grade 3 C celiac disease. RONY test was negative. Today, she is doing okay overall. She notes some intermittent diarrhea and mild bloating. She has noticed occasional steatorrhea. These have possibly been worse since she started Ozempic. She denies any extragastrointestinal symptoms of celiac disease. She is pursuing bariatric surgery and prefers RHONDA. Recent vitamin labs performed by bariatrics showed a mildly low Vitamin A, but otherwise was unremarkable per the patient. Audi Cazares PA-C [address], [place], [phone], [facility] [place] 10/14/2022 09:46:23 OBGyn Episode No OBEpisode recorded.
--- OUTSIDE RECORDS SUMMARY | 2024-06-26 16:09 | XMS_ITS | Encounter Summary ---
Author Organization [facility] [employer] Address [address] [place] [address] Care Team Providers Care Licensed Prosthetist Name Role Phone Unavailable Primary Care Provider Unavailabl e Encounter Details Date Type Department Care Team (Late st Contact Info) Description 04/05/2019 Transcribed Document [facility] Family Medicine [facility] [place] [address] ProviderVineet MD [facility] [place] [address] Social History Tobacco Use Types Packs/Day Years Used Date Smoking Tobacco: Never Assessed Comments Unknown Sex and Gender Information Value Date Recorded Sex Assigned at Not on file Legal Sex Female 3:37 PM CDT Gender Identity Not on file Sexual Orientation Not on file documented as of this encounter Miscellaneous Notes * Cerner Conversion Note - Vineet Fitzgerald MD - 04/05/2019 1:11 AM CDT Patient: PAT MURPHY Age: 29 Years Sex: Female : 1990 Normal spontaneous delivery of a live male infant over an intact perineum. APGARS 8/9, infant placed on maternal abdomen. Nuchal cord x 1, easily reduced after delivery of infant body. Perineum, rectum and cervix intact. Placenta spontaneously delivered grossly intact; 3 vessel cord noted. Cord blood collected. Uterus explored, clots removed. Atony noted. History of hemorrhage and long labor -- methergine IM and cytotec 800mcg rectally administered. Estimated blood loss: 350ml. Mother and baby are stable; kangaroo care initiated. Electronically signed by Shereen Gilbert Conversion Operations And Maintenance Manager Cerner at 11/12/2022 2:34 PM CDT documented in this encounter Plan of Treatment Not on file documented as of this encounter Visit Diagnoses Not on filedocumented in this encounter
--- OUTSIDE RECORDS SUMMARY | 2024-06-26 16:09 | XMS_ITS | Encounter Summary ---
Author Organization [employer] Address [address] [place] [address] Care Team Providers Care Millwright Instructor Name Role Phone Unavailable Primary Care Provider Unavailabl e Encounter Details Date Type Department Care Team (Late st Contact Info) Description 04/07/2019 Transcribed Document [facility] [place] Family Medicine [facility] [place] [address] ProviderVineet MD [facility] [place] [address] Social History Tobacco Use Types Packs/Day Years Used Date Smoking Tobacco: Never Assessed Comments Unknown Sex and Gender Information Value Date Recorded Sex Assigned at Not on file Legal Sex Female 3:37 PM CDT Gender Identity Not on file Sexual Orientation Not on file documented as of this encounter Miscellaneous Notes * Cerner Conversion Note - Vineet Fitzgerald MD - 04/07/2019 1:06 PM CDT Patient: PAT MURPHY Age: 29 Years Sex: Female : 1990 Admit Date 04/03/2019 22:16 Discharge Date 04/07/19 No Discharge Date on Record Primary Care Provider [facility] Discharge Diagnosis Spontaneous vaginal delivery 04/06/2019 O80 ICD-10-CM Procedures vaginal delivery Reason for Hospitalization term labor Hospital Course admitted for induction for dm, had vaginal delivery and benign course Vital Signs Oxygen Settings (Last) No qualifying data available. Physical Exam nt fundus Discharge Disposition Home Discharge Follow Up [facility] EPPS - Within 3 weeks Discharge Medications (3) Active ibuprofen 600 mg oral tablet 600 mg = 1 Tab, Oral, Q6H levothyroxine 50 mcg, Daily Multivitamins oral tablet Code Status Start: 04/05/19 1:14:00 EDT, Full Code, Continuous Order Condition on Discharge stable Consulting Physicians No Consulting Physician on Record. Current Diet Order Diet, Adult - Ordered -- Start: 04/05/19 1:14:00 EDT, Regular Diet, Isolation: Standard Precautions Patient Discharge Summary Orders Discharge Activity: Discharge Activity: Activity as tolerated Diet: Discharge Diet: Resume usual diet as tolerated Pending Labs No Labs on Record Electronically signed by Vladimir [facility] Conversion Greeter Guest Services Cerner at 11/12/2022 2:45 PM CDT documented in this encounter Plan of Treatment Not on file documented as of this encounter Visit Diagnoses Not on filedocumented in this encounter
--- OUTSIDE RECORDS SUMMARY | 2024-06-26 16:09 | XMS_ITS | Encounter Summary ---
Author Organization [employer] Address [address] [place] [address] Care Team Providers Care Alumni Relations Manager Name Role Phone Unavailable Primary Care Provider Unavailabl e Encounter Details Date Type Department Care Team (Late st Contact Info) Description 04/03/2019 Historic Encounter [facility] [address] [place] [address] ProviderLeanne Historical Social History Tobacco [...] Procedure Name Priority Date/Time Associated Diagnosis Comments OB URINE DRUG SCRN ([facility] BKR DATA CONV) Routine 04/03/2019 11:57 PM EDT documented in this encounter Results * OB URINE DRUG SCRN ([facility] BKR DATA CONV) (04/03/2019 11:57 PM EDT) UDS Amp Negative Negative 04/04/2019 4:31 AM EDT Comment: Cutoff 500 ng/ml Test is for screening purposes only. Clinical consideration and professional judgement should be applied to any uhhi-ys-dezkd test result, particularly when preliminary positive results are used. Positive results should be confirmed if used for clinical or legal purposes. Dilution of the urine through excessive fluid intake or diuretics can decrease the urine drug concentration. A urine with a creatinine concentration of <20 mg/dl and/or a specific gravity of <1.002 is considered a dilute specimen. The specimen may not reflect recent prescribed medications or drug use. UDS Lydia Negative Negative 04/04/2019 4:31 AM EDT Comment:Cutoff 200 ng/ml UDS Benzo Negative Negative 04/04/2019 4:31 AM EDT Comment:Cutoff 150 ng/ml UDS Wendy Negative 04/04/2019 4:31 AM EDT Comment:Cutoff 150 ng/ml UDS Meth Negative Negative 04/04/2019 4:31 AM EDT Comment:Cutoff 300 ng/ml UDS Opi Negative Negative 04/04/2019 4:31 AM EDT Comment:Cutoff 300ng/ml UDS Oxy Negative Negative 04/04/2019 4:31 AM EDT Comment:Cutoff 50 ng/ml UDS PCP Negative Negative 04/04/2019 4:31 AM EDT Comment:Cutoff 25 ng/ml UDS TCA Negative Negative 04/04/2019 4:31 AM EDT Comment:Cutoff 1000 ng/ml UDS THC Negative Negative 04/04/2019 4:31 AM EDT Comment:Cutoff 20 ng/ml Buprenorphine Screen, Urine Negative Negative 04/04/2019 4:31 AM EDT Comment:Cutoff 5 ng/ml Heroin Metab(6AM) by LC-MS/MS, Urine Negative Negative 04/04/2019 4:31 AM EDT Comment: Cutoff 10 ng/ml Screening only. Clinical consideration and professional judgement should be applied to any drug of abuse test result, particularly when preliminary positive results are used. Positive results should be confirmed if used for clinical or legal purposes. Propoxyphene, Urine Negative Negative 04/04/2019 4:31 AM EDT Comment:Cutoff 25 ng/ml UDS pH 5.8 04/04/2019 4:31 AM EDT Sp. Reeves, Urine 1.034 04/04/2019 4:31 AM EDT UDS Creatinine, Toxicology 141.4 mg/dL 04/04/2019 4:31 AM EDT Urine 04/03/2019 11:5 7 PM EDT 04/04/2019 4:05 AM EDT us [facility] Historical Provider URINE ORDERABLES Final Result [facility] [address] [phone] documented in this encounter Visit Diagnoses Not on filedocumented in this encounter
--- OUTSIDE RECORDS SUMMARY | 2024-06-26 16:09 | XMS_ITS | Encounter Summary ---
Author Organization [employer] Address [address] [place] [address] Care Team Providers Care Sand Slinger Name Role Phone Unavailable Primary Care Provider Unavailabl e Encounter Details Date Type Department Care Team (Late st Contact Info) Description 04/05/2019 Historic Encounter [facility] [address] [place] [address] ProviderLeanne Historical Social History Tobacco [...] Name Priority Date/Time Associated Diagnosis Comments CBC W/ AUTO DIFF ([facility] BKR DATA CONV) Routine 04/05/2019 4:55 AM EDT documented in this encounter Results * (ABNORMAL) CBC W/ AUTO DIFF ([facility] BKR DATA CONV) (04/05/2019 4:55 AM EDT) WBC 18.9(H) 3.9 - 10.0 K/uL 04/05/2019 9:05 AM EDT RBC 3.92(L) 3.93 - 5.22 Million/uL 04/05/2019 9:05 AM EDT Comment: No Red Blood Cell reference ranges defined for patients with an ? Unknown? gender. Please apply existing Male/Female reference ranges as clinically indicated. Assay ?RBC Male ??0 ??Minutes ??2 ??Months ??4.8 7.1 Female ??0 ??Minutes ??2 ??Months ??4.8 7.1 Male ??2 ??Months ??12 ??Years ??4 5.5 Female ??2 ??Months ??12 ??Years ??4 5.5 Male ??12 ??Years ??150 ??Years ??4.63 6.08 Female ??12 ??Years ??150 ??Years ??3.93 5.22 Hgb 11.8 11.2 - 15.7 Gram/dL 04/05/2019 9:05 AM EDT Comment: No Hemoglobin reference ranges defined for patients with an ? Unknown? gender. Please apply existing Male/Female reference ranges as clinically indicated. Assay ?HGB Male ??0 ??Days ??1 ??Months ??12 23 Female ??0 ??Days ??1 ??Months ??12 23 Male ??1 ??Months ??2 ??Years ??10 14 Female ??1 ??Months ??2 ??Years ??10 14 Male ??2 ??Years ??12 ??Years ??11 16 Female ??2 ??Years ??12 ??Years ??11 16 Male ??12 ??Years ??150 ??Years ??13.7 17.5 Female ??12 ??Years ??150 ??Years ??11.2 15.7 Hct 35.3 34.1 - 44.9 % 04/05/2019 9:05 AM EDT Comment: No Hematocrit reference ranges defined for patients with an ? Unknown? gender. Please apply existing Male/Female reference ranges as clinically indicated. Assay ?HCT Male ??0 ??Minutes ??1 ??Months ??42 66 Female ??0 ??Minutes ??1 ??Months ??42 66 Male ??1 ??Months ??2 ??Years ??31 42 Female ??1 ??Months ??2 ??Years ??31 42 Male ??2 ??Years ??12 ??Years ??33 46 Female ??2 ??Years ??12 ??Years ??33 46 Male ??12 ??Years ??150 ??Years ??40.1 51 Female ??12 ??Years ??150 ??Years ??34.1 44.9 MCV 90.1 79.0 - 94.8 fL 04/05/2019 9:05 AM EDT MCH 30.1 25.6 - 32.2 pg 04/05/2019 9:05 AM EDT MCHC 33.4 32.3 - 36.5 Gram/dL 04/05/2019 9:05 AM EDT RDW 13.4 11.6 - 14.4 % 04/05/2019 9:05 AM EDT Platelet Count 254 163 - 369 K/uL 04/05/2019 9:05 AM EDT MPV 9.8 9.4 - 12.4 fL 04/05/2019 9:05 AM EDT Slide Review No 04/05/2019 9:19 AM EDT Blood 04/05/2019 4:55 AM EDT 04/05/2019 9:00 AM EDT [facility] Historical Provider LAB BLOOD ORDERABLES Fi nal Result [facility] [address] [phone] documented in this encounter Visit Diagnoses Not on filedocumented in this encounter
--- OUTSIDE RECORDS SUMMARY | 2024-06-26 16:09 | XMS_ITS | Encounter Summary ---
Author Organization [employer] Address [address] [place] [address] Care Team Providers Care New Autos Delivery Driver Name Role Phone Unavailable Primary Care Provider Unavailabl e Encounter Details Date Type Department Care Team (Late st Contact Info) Description 04/04/2019 Historic Encounter [facility] [address] [place] [address] Provider, [facility] Historical Social History Tobacco Use Types Packs/Day [...] Date/Time Associated Diagnosis Comments GLUCOSE-POC Routine 04/04/2019 9:10 AM EDT documented in this encounter Results * Glucose, Point of Care (04/04/2019 9:10 AM EDT) Glucose POC2 89 70 - 110 mg/dL 04/04/2019 1:[address] [facility] Ribbon Hanking Machine Operator [id number] 04/04/2019 1:[address] [facility] Device SN [id number] 04/04/2019 1:[address] [facility] Blood 04/04/2019 9:10 AM EDT 04/04/2019 1:15 PM EDT [facility] Historical Provider POINT OF CARE TEST ORDE MISAEL Final Result [facility] [address] [place], [place] [address] [phone] documented in this encounter Visit Diagnoses Not on filedocumented in this encounter
--- OUTSIDE RECORDS SUMMARY | 2024-06-26 16:09 | XMS_ITS | Encounter Summary ---
Author Organization [employer] Address [address] [place] [address] Care Team Providers Care Urban Design Consultant Name Role Phone Unavailable Primary Care Provider Unavailabl e Encounter Details Date Type Department Care Team (Late st Contact Info) Description 04/03/2019 Historic Encounter [facility] [address] [place] [address] ProviderLeanne Historical Social History Tobacco [...] Associated Diagnosis Comments CBC W/ AUTO DIFF ([facility] BKR DATA CONV) Routine 04/03/2019 11:57 PM EDT documented in this encounter Results * (ABNORMAL) CBC W/ AUTO DIFF ([facility] BKR DATA CONV) (04/03/2019 11:57 PM EDT) WBC 14.4(H) 3.9 - 10.0 K/uL 04/04/2019 4:07 AM EDT RBC 3.81(L) 3.93 - 5.22 Million/uL 04/04/2019 4:07 AM EDT Comment: No Red Blood Cell [...] ??12 ??Years ??150 ??Years ??3.93 5.22 Hgb 11.6 11.2 - 15.7 Gram/dL 04/04/2019 4:07 AM EDT Comment: No Hemoglobin reference ranges [...] ??12 ??Years ??150 ??Years ??11.2 15.7 Hct 33.9(L) 34.1 - 44.9 % 04/04/2019 4:07 AM EDT Comment: No Hematocrit reference ranges [...] ??12 ??Years ??150 ??Years ??34.1 44.9 MCV 89.0 79.0 - 94.8 fL 04/04/2019 4:07 AM EDT MCH 30.4 25.6 - 32.2 pg 04/04/2019 4:07 AM EDT MCHC 34.2 32.3 - 36.5 Gram/dL 04/04/2019 4:07 AM EDT RDW 13.7 11.6 - 14.4 % 04/04/2019 4:07 AM EDT Platelet Count 243 163 - 369 K/uL 04/04/2019 4:07 AM EDT MPV 9.6 9.4 - 12.4 fL 04/04/2019 4:07 AM EDT Slide Review No 04/04/2019 4:08 AM EDT Blood 04/03/2019 11:5 7 PM EDT 04/04/2019 4:[address] [facility] Historical Provider LAB BLOOD ORDERABLES Fi nal Result [facility] [address] [phone] documented in this encounter Visit Diagnoses Not on filedocumented in this encounter
--- OUTSIDE RECORDS SUMMARY | 2024-06-26 16:09 | XMS_ITS | Encounter Summary ---
Author Organization [employer] Address [address] [place] [address] Care Team Providers Care Astronomy Teacher Name Role Phone Unavailable Primary Care Provider Unavailabl e Encounter Details Date Type Department Care Team (Late st Contact Info) Description 03/29/2019 Transcribed Document [facility] Family Medicine [facility] [place] [address] ProviderVineet MD [address] [place] [address] Social History Tobacco Use Types Packs/Day Years Used Date Smoking Tobacco: Never Assessed Comments Unknown Sex and Gender Information Value Date Recorded Sex Assigned at Not on file Legal Sex Female 3:37 PM CDT Gender Identity Not on file Sexual Orientation Not on file documented as of this encounter Miscellaneous Notes * Cerner Conversion Note - Vineet Fitzgerald MD - 03/29/2019 8:39 PM CDT Patient Education Materials Follows:and Gynecology Type 1 or Type 2 Diabetes Mellitus [...] 120 mg/dL (6.7 mmol/L). ??? A1c level: 6?6.5%. How to manage high and low blood [...] ? 3 sugar tablets (glucose pills). ? 6?8 pieces of hard candy. ? 4 oz [...] canola oil. ??? Meet with a food technologist (dietitian). He or she can help you [...] exams as told by your doctor. ??? [place] your teeth and gums two times a day. Floss one or more times a day. ??? Go to the dentist one or more times every 6 months. ??? Stay at a healthy weight during your . General instructions ??? Take eebf-uqw-ttjfilp and prescription medicines only as told by [...] Do I need to meet with a city carrier assistant? Where can I find a support group for people with diabetes? Where to find more information To learn more about diabetes, visit: ??? [place] [employer]: www.diabetes.org ??? [place] [employer] Diabetes Educators (AADE): www.diabeteseducator.org Summary [...] 11/01/2016 Document Revised: 02/28/2018 Document Reviewed: 08/13/2016 [employer] Interactive Patient Education ? 2019 [employer]. Third Trimester of The third trimester is from week 28 through week 40 (months 7 through 9). This trimester is when your unborn baby (fetus) is growing very fast. At the end of the ninth month, the unborn baby is about 20 inches in length. It weighs about 6?10 pounds. Follow these instructions at home: Medicines ??? Take mkgm-kwd-nogarbm and prescription medicines only as told by [...] 10/05/2010 Document Revised: 08/16/2017 Document Reviewed: 08/16/2017 Elsevier Interactive Patient Education ? 2019 Else[employer] Inc. Movement Counts Patient Name: Patient Due [...] Document Reviewed: 08/19/2016 Elsevier Interactive Patient Education ? 2019 [employer] Electronically signed by Vladimir, Shereen Conversion Business Continuity Manager [employer] at 11/12/2022 2:55 PM CDT documented in this encounter Plan of Treatment Not on file documented as of this encounter Visit Diagnoses Not on filedocumented in this encounter
--- OUTSIDE RECORDS SUMMARY | 2024-06-26 16:09 | XMS_ITS | Encounter Summary ---
Author Organization [employer] Address [address] [place] [address] Care Team Providers Care Licensed Psychologist Name Role Phone Unavailable Primary Care Provider Unavailabl e Encounter Details Date Type Department Care Team (Late st Contact Info) Description 04/04/2019 Historic Encounter [facility] [address] [place] [address] Provider, [facility] Historical Social History Tobacco Use Types Packs/Day [...] Date/Time Associated Diagnosis Comments GLUCOSE-POC Routine 04/04/2019 12:20 PM EDT documented in this encounter Results * (ABNORMAL) Glucose, Point of Care (04/04/2019 12:20 PM EDT) Glucose POC2 67(L) 70 - 110 mg/dL 04/04/2019 4:[address] [facility] Melt Supervisor [id number] 04/04/2019 4:[address] [facility] Device SN [id number] 04/04/2019 4:[address] [facility] Blood 04/04/2019 12:2 0 PM EDT 04/04/2019 4:25 PM EDT [facility] Historical Provider POINT OF CARE TEST ORDE MISAEL Final Result [facility] [address] [place], [place] [address] [phone] documented in this encounter Visit Diagnoses Not on filedocumented in this encounter
--- OUTSIDE RECORDS SUMMARY | 2024-06-26 16:09 | XMS_ITS | Encounter Summary ---
Author Organization [employer] Address [address] [place] [address] Care Team Providers Care Public Aid Eligibility Assistant Name Role Phone Unavailable Primary Care Provider Unavailabl e Encounter Details Date Type Department Care Team (Late st Contact Info) Description 04/07/2019 Transcribed Document [facility] Family Medicine [address] [place] [address] ProviderVineet MD [address] [place] [address] Social History Tobacco Use Types Packs/Day Years Used Date Smoking Tobacco: Never Assessed Comments Unknown Sex and Gender Information Value Date Recorded Sex Assigned at Not on file Legal Sex Female 3:37 PM CDT Gender Identity Not on file Sexual Orientation Not on file documented as of this encounter Miscellaneous Notes * [employer]ner Conversion Note - Vineet ProviderMD - 04/07/2019 7:40 AM CDT Stroke/Warfarin Instructions Entered On: 04/07/2019 7:41 EDT Performed On: 04/07/2019 7:40 EDT by Katherine Santiaog Rn Stroke/Warfarin Instructions Stroke/TIA Discharge Ins : N/A Warfarin Discharge Ins : N/A Katherine Santiago Rn - 04/07/2019 7:40 EDT documented in this encounter Plan of Treatment Not on file documented as of this encounter Visit Diagnoses Not on filedocumented in this encounter
--- OUTSIDE RECORDS SUMMARY | 2024-06-26 16:09 | XMS_ITS | Encounter Summary ---
Author Organization [employer] Address [address] [place] [address] Care Team Providers Care Hospitality Aide Name Role Phone Unavailable Primary Care Provider Unavailabl e Encounter Details Date Type Department Care Team (Late st Contact Info) Description 04/04/2019 Transcribed Document [facility] [place] Family Medicine [address] [place] [address] ProviderVineet MD [facility] [place] [address] Social History Tobacco Use Types Packs/Day Years Used Date Smoking Tobacco: Never Assessed Comments Unknown Sex and Gender Information Value Date Recorded Sex Assigned at Not on file Legal Sex Female 3:37 PM CDT Gender Identity Not on file Sexual Orientation Not on file documented as of this encounter Miscellaneous Notes * Cerner Conversion Note - Historical ProviderMD - 04/04/2019 8:06 PM CDT Patient: PAT KERN Age: 29 Years Sex: Female : 1990 Pt reports more pressure during ctx, especially in the last 5min or so. VE 7//-1 fhts 120-130s, moderate variability, +accels, occ variable decels with quick return to baseline mvus 160-170s Making progress. afebrile. Continue to increase pit for adequate mvus. Reposition to improve fht tracing and help facilitate progress. anticipating . documented in this encounter Plan of Treatment Not on file documented as of this encounter Visit Diagnoses Not on filedocumented in this encounter
--- OUTSIDE RECORDS SUMMARY | 2024-06-26 16:09 | XMS_ITS | Encounter Summary ---
Author Organization [employer] Address [address] [place] [address] Care Team Providers Care Director Hospice Operations Name Role Phone Unavailable Primary Care Provider Unavailabl e Encounter Details Date Type Department Care Team (Late st Contact Info) Description 04/07/2019 Transcribed Document [facility] Family Medicine [address] [place] [address] ProviderVineet MD [facility] [place] [address] Social History Tobacco Use Types Packs/Day Years Used Date Smoking Tobacco: Never Assessed Comments Unknown Sex and Gender Information Value Date Recorded Sex Assigned at Not on file Legal Sex Female 3:37 PM CDT Gender Identity Not on file Sexual Orientation Not on file documented as of this encounter Miscellaneous Notes * Cerner Conversion Note - Vineet ProviderMD - 04/07/2019 6:00 AM CDT Pain Assessment Entered On: 04/07/2019 7:41 EDT Performed On: 04/07/2019 7:04 EDT by Vania Gee RN Intervention Information: ibuprofen Performed by Vania Gee, RN on 04/07/2019 06:04:51 EDT ibuprofen,600mg Oral Pain Assessment Pain Assessment : Follow-up assessment Pain Comment : see OBTV Vania Gee, RN - 04/07/2019 7:41 EDT documented in this encounter Plan of Treatment Not on file documented as of this encounter Visit Diagnoses Not on filedocumented in this encounter
--- OUTSIDE RECORDS SUMMARY | 2024-06-26 16:09 | XMS_ITS | Encounter Summary ---
Author Organization [employer] Address [address] [place] [address] Care Team Providers Care Foundation Relations Director Name Role Phone Unavailable Primary Care Provider Unavailabl e Encounter Details Date Type Department Care Team (Late st Contact Info) Description 04/05/2019 Transcribed Document [facility] [place] Family Medicine [address] [place] [address] ProviderVineet MD [address] [place] [address] Social History Tobacco Use Types Packs/Day Years Used Date Smoking Tobacco: Never Assessed Comments Unknown Sex and Gender Information Value Date Recorded Sex Assigned at Not on file Legal Sex Female 3:37 PM CDT Gender Identity Not on file Sexual Orientation Not on file documented as of this encounter Miscellaneous Notes * Cerner Conversion Note - Vineet ProviderMD - 04/05/2019 9:36 AM CDT UM Authorization Entered On: 04/05/2019 9:37 EDT Performed On: 04/05/2019 9:36 EDT by GUNNAR KEITA Rn-Utilization Review Primary Insurance Authorization Authorization and Policy Numbers : Insurance 1 [facility] Policy Number: [id number] Authorization Number: Insurance Primary Name : Devonte CHEEMA Authorization Status-Primary : Awaiting callback Reference Number-Primary : [id number] Authorized Service Begin Date-Primary : 04/03/2019 EDT Authorization Comments-Primary : Auth initiated and delivery clinicals submitted via [employer] Historical Authorization Comments-Primary : No Authorization Comments Found GUNNAR KEITA Rn-Utilization Review - 04/05/2019 9:36 EDT documented in this encounter Plan of Treatment Not on file documented as of this encounter Visit Diagnoses Not on filedocumented in this encounter
--- OUTSIDE RECORDS SUMMARY | 2024-06-26 16:09 | XMS_ITS | Encounter Summary ---
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 [address] ProviderLeanne Historical Social History Tobacco [...] Associated Diagnosis Comments OB URINE DRUG SCRN ([facility] DATA CONV) Routine 03/29/2019 8:34 PM EDT GLUCOSE-POC Routine 03/29/2019 8:15 PM EDT OB URINE DRUG SCRN ([facility] DATA CONV) Routine 03/27/2019 1:30 PM EDT URINALYSIS UA RFLX MICROSCOPIC CULT IF IND ([facility] DATA CONV) Routine 03/27/2019 1:30 PM EDT URINALYSIS MICROSCOPIC ([facility] DATA CONV) Routine 03/27/2019 1:30 PM EDT URINE CULTURE AND SENSITIVITY Routine 03/27/2019 1:30 PM EDT documented in this encounter Results * OB URINE DRUG SCRN ([facility] DATA CONV) (03/29/2019 8:34 PM EDT) UDS Amp Negative Negative 03/30/2019 1:01 AM EDT Comment: Cutoff 500 ng/ml Test is for screening purposes only. Clinical consideration and professional judgement should be applied to any krjx-ic-lfbso test result, particularly when preliminary positive results [...] or drug use. UDS Lydia Negative Negative 03/30/2019 1:01 AM EDT Comment:Cutoff 200 ng/ml UDS Benzo Negative Negative 03/30/2019 1:01 AM EDT Comment:Cutoff 150 ng/ml UDS Wendy Negative 03/30/2019 1:01 AM EDT Comment:Cutoff 150 ng/ml UDS Meth Negative Negative 03/30/2019 1:01 AM EDT Comment:Cutoff 300 ng/ml UDS Opi Negative Negative 03/30/2019 1:01 AM EDT Comment:Cutoff 300ng/ml UDS Oxy Negative Negative 03/30/2019 1:01 AM EDT Comment:Cutoff 50 ng/ml UDS PCP Negative Negative 03/30/2019 1:01 AM EDT Comment:Cutoff 25 ng/ml UDS TCA Negative Negative 03/30/2019 1:01 AM EDT Comment:Cutoff 1000 ng/ml UDS THC Negative Negative 03/30/2019 1:01 AM EDT Comment:Cutoff 20 ng/ml Buprenorphine Screen, Urine Negative Negative 03/30/2019 1:01 AM EDT Comment:Cutoff 5 ng/ml Heroin Metab(6AM) by LC-MS/MS, Urine Negative Negative 03/30/2019 1:01 AM EDT Comment: Cutoff 10 ng/ml Screening only. Clinical consideration and professional judgement should be applied to any drug of abuse test result, particularly when preliminary positive results are used. Positive results should be confirmed if used for clinical or legal purposes. Propoxyphene, Urine Negative Negative 03/30/2019 1:01 AM EDT Comment:Cutoff 25 ng/ml UDS pH 6.5 03/30/2019 1:01 AM EDT Sp. 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 [id number] 03/30/2019 12:15 AM EDT [facility] Device SN [id number] 03/30/2019 12:15 AM EDT [facility] Blood 03/29/2019 8:15 PM EDT 03/30/2019 12:[address] [facility] Provider POINT OF CARE TEST ORDE RABLES Final Result Performing Organization Address [facility] Co de Phone Number [facility] [address] [phone] * URINE CULTURE AND SENSITIVITY (03/27/2019 1:30 PM EDT) Final 10,000-100,000 cfu/ml Streptococcus agalactiae (Group B) Pre Too young to evaluate - will reincubate 03/27/2019 1:30 PM EDT 03/27/2019 9:06 PM EDT Narrative [facility] - 03/29/2019 2:55 PM EDT Ordered by Discern Expert [facility] Provider PATHOLOGY/CYTOLOGY ORDE RABLES Final Result Performing Organization Address City/[facility]/ZIP Co de Phone Number [facility] [address] [phone] * (ABNORMAL) URINALYSIS UA RFLX MICROSCOPIC CULT IF IND ([facility] B[facility] DATA CONV) (03/27/2019 1:30 PM EDT) Pathologist [facility] [place] Urine Type. U CleanCatch 03/27/2019 5:37 PM EDT Urine Color Yellow 03/27/2019 5:44 PM EDT Comment: Substances that cause HIGHLY abnormal urine color may affect the accuracy of URINE CHEMISTRY reagent strip results due to colorimetric interference. ??These include visible levels of blood or bilirubin, drugs containing dyes, and some antibiotics such as nitrofurantoin and riboflavin which can cause markedly abnormal urine coloration. Urine Appearance Clear 03/27/2019 5:44 PM EDT Urine Specific [place] 1.017 1.005 - 1.030 03/27/2019 5:44 PM EDT Urine pH Dipstick 6.0 6.0 - 8.0 03/27/2019 5:44 PM EDT Urine Leukocyte Esterase Moderate(A) Negative 03/27/2019 5:44 PM EDT Urine Nitrite Negative Negative 03/27/2019 5:44 PM EDT Urine Protein Dipstick Negative Negative 03/27/2019 5:44 PM EDT Urine Glucose Dipstick Negative Negative 03/27/2019 5:44 PM EDT Urine Ketones Dipstick Negative Negative 03/27/2019 5:44 PM EDT Urine Urobilinogen Dipstick 0.2 0.2 - 1.0 EU/dL 03/27/2019 5:44 PM EDT Urine Bilirubin Dipstick Negative Negative 03/27/2019 5:44 PM EDT Urine Blood Dipstick Negative Negative 03/27/2019 5:44 PM EDT 03/27/2019 1:30 PM EDT 03/27/2019 5:37 PM EDT us Sle Historical Provider URINE ORDERABLES Final Result [facility] [address] [place] [address], [facility] [phone] * OB URINE DRUG SCRN ([facility] BKR DATA CONV) (03/27/2019 1:30 PM EDT) Pathologist [facility] [place] UDS Amp Negative Negative 03/27/2019 6:09 PM EDT Comment: Cutoff 500 ng/ml Test is for screening purposes only. Clinical consideration and professional judgement should be applied to any hnwn-tz-gqgan test result, particularly when preliminary positive results [...] or drug use. UDS Lydia Negative Negative 03/27/2019 6:09 PM EDT Comment:Cutoff 200 ng/ml UDS Benzo Negative Negative 03/27/2019 6:09 PM EDT Comment:Cutoff 150 ng/ml UDS Wendy Negative 03/27/2019 6:09 PM EDT Comment:Cutoff 150 ng/ml UDS Meth Negative Negative 03/27/2019 6:09 PM EDT Comment:Cutoff 300 ng/ml UDS Opi Negative Negative 03/27/2019 6:09 PM EDT Comment:Cutoff 300ng/ml UDS Oxy Negative Negative 03/27/2019 6:09 PM EDT Comment:Cutoff 50 ng/ml UDS PCP Negative Negative 03/27/2019 6:09 PM EDT Comment:Cutoff 25 ng/ml UDS TCA Negative Negative 03/27/2019 6:09 PM EDT Comment:Cutoff 1000 ng/ml UDS THC Negative Negative 03/27/2019 6:09 PM EDT Comment:Cutoff 20 ng/ml Buprenorphine Screen, Urine Negative Negative 03/27/2019 6:09 PM EDT Comment:Cutoff 5 ng/ml Heroin Metab(6AM) by LC-MS/MS, Urine Negative Negative 03/27/2019 6:09 PM EDT Comment: Cutoff 10 ng/ml Screening only. Clinical consideration and professional judgement should be applied to any drug of abuse test result, particularly when preliminary positive results are used. Positive results should be confirmed if used for clinical or legal purposes. Propoxyphene, Urine Negative Negative 03/27/2019 6:09 PM EDT Comment:Cutoff 25 ng/ml UDS pH 6.5 03/27/2019 6:09 PM EDT Sp. [place], Urine 1.018 03/27/2019 6:09 PM EDT UDS Creatinine, Toxicology 84.4 mg/dL 03/27/2019 6:09 PM EDT Urine 03/27/2019 1:30 PM EDT 03/27/2019 5:37 PM EDT [facility] Historical Provider URINE ORDERABLES Final Result Performing Organization Address [facility] Co de Phone Number [facility] [address] [phone] * (ABNORMAL) URINALYSIS MICROSCOPIC ([facility] BKR DATA CONV) (03/27/2019 1:30 PM EDT) Correlate UA Correlated Correlated 03/27/2019 5:53 PM EDT Ur RBC 0-2(A) None Seen /HPF 03/27/2019 5:53 PM EDT Ur WBC 10-20(A) None Seen /HPF 03/27/2019 5:53 PM EDT Ur Bacteria 1+(A) None Seen 03/27/2019 5:53 PM EDT Ur Epithelial Cells 20-50(A) None Seen /HPF 03/27/2019 5:53 PM EDT 03/27/2019 1:30 PM EDT 03/27/2019 5:37 PM EDT Narrative [facility] - 03/27/2019 5:53 PM EDT Added by Discern Expert [facility] Provider URINE ORDERABLES Final Result Performing Organization Address [facility] Co de Phone Number [facility] [address] [phone] documented in this encounter Visit Diagnoses Not on filedocumented in this encounter
--- OUTSIDE RECORDS SUMMARY | 2024-06-26 16:09 | XMS_ITS | Encounter Summary ---
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 Name Role Phone Unavailable Primary Care Provider Unavailabl e Encounter Details Date Type Department Care Team (Late st Contact Info) Description 04/04/2019 Transcribed Document [facility] [place] Family Medicine [facility] [place] [address] ProviderVineet MD [facility] [place] [address] Social History Tobacco Use Types Packs/Day Years Used Date Smoking Tobacco: Never Assessed Comments Unknown Sex and Gender Information Value Date Recorded Sex Assigned at Not on file Legal Sex Female 3:37 PM CDT Gender Identity Not on file Sexual Orientation Not on file documented as of this encounter Miscellaneous Notes * Cerner Conversion Note - Vineet Fitzgerald MD - 04/04/2019 8:36 AM CDT Patient: PAT MURPHY Age: 29 Years Sex: Female : 1990 History of Present Illness No maternal information available. here for iol at 38wks 2 days for GDM. Care Site/Provider: w2w Record Available (Y/N/Request): yes Plan (Y/N): Desires Epidural (Y/N): yes PPTL Papers Signed (Y/N): On Chart (Y/N): Current Complications GDM on insulin Past OB History (last 6 pregnancies) #1 at 36wks for oligo Review of Systems ros neg Physical Exam Vitals & Measurements T: 36.6 ??C HR: 80(Peripheral) RR: 16 BP: 109/61 HT: 172.72 cm WT: 138.64 kg BMI: 46.5 General Appearance HEENT Breasts Chest Heart Abdomen Fundal height Presentation cephalic Est. weight 6#14 oz at 36wks per mfm Extremities Pelvic Effacement Dilation 2-3 Station Position Consistency Wright score Clinical Pelvimetry adequate Assessment/Plan 1. cytotec iol Ordered: acetaminophen, 650 mg, Oral, Tab, Q4H, PRN for Pain (Mild 1-3), Routine, Start 04/03/19 13:25:00 EDT acetaminophen, 1,000 mg, Oral, Tab, Q8H, PRN for Fever, Routine, Start 04/03/19 13:25:00 EDT Al hydroxide/Mg hydroxide/simethicone, 30 mL, Oral, Liquid, Q8H, PRN for Heartburn, Routine, Start 04/03/19 13:25:00 EDT diphenhydrAMINE, 50 mg, Oral, Tab, Q6H, PRN for Itching, Routine, Start 04/03/19 13:25:00 EDT diphenhydrAMINE, 50 mg, IV Push, Inj, 1-Time, PRN for Other (See Comment), Routine, Start 04/03/19 13:25:00 EDT docusate, 100 mg, Oral, Cap, Q12H, PRN for Constipation, Routine, Start 04/03/19 13:25:00 EDT famotidine, 20 mg, IV Push, Inj, Q12H, PRN for Indigestion, Routine, Start 04/03/19 13:25:00 EDT miSOPROStol, 50 mcg, SubLINgual, Tab, Q4H, Routine, Start 04/04/19 4:00:00 EDT nalbuphine, 10 mg, IV Push, Inj, Q3H, PRN for Pain (Moderate 4-6), Routine, Start 04/03/19 13:25:00 EDT ondansetron, 4 mg, IV Push, Inj, Q4H, PRN for Nausea/Vomiting, Routine, Start 04/03/19 13:25:00 EDT oxytocin 20 Units [0.2 Units/Hr] + Lactated Ringers Premix Diluent 1,000 mL, 1,000 mL, Bag Volume (mL) = 1,000, Rate = 10 mL/Hr, IntraVENous, start date 04/03/19 13:25:00 EDT, Routine promethazine, 12.5 mg, IV Push, Inj, Q6H, PRN for Nausea/Vomiting, Routine, Start 04/03/19 13:25:00 EDT sodium chloride, 10 mL, IV Push, Inj, See Comment, PRN for IV Use, Routine, Start 04/03/19 13:25:00 EDT terbutaline, 0.25 mg, SubCutaneous, Inj, Q20Min, PRN for Other (See Comment), Routine, Start 04/03/19 13:25:00 EDT zolpidem, 5 mg, Oral, Tab, At Bedtime, PRN for Sleep, Routine, Start 04/03/19 13:25:00 EDT Assess for Ruptured Membranes Consult to Physician Digital Cervical Exam Electronic Heart Rate External Facility Protocol Nonstress Test Intrauterine Resuscitative Actions Nitrous Oxide/Oxygen Notify Provider of Change in Patient Condition Peripheral IV Insertion Resuscitation Status Saline Lock Insert Up Ad Eloise Up to Chair Vital Signs Weight (Routine) Allergies ciprofloxacin (Hives) sulfa drugs (HIVES, HIVES) Medications Inpatient aluminum hydroxide/magnesium hydroxide/simethicone 200 mg-200 mg-20 mg/5 mL oral suspension, 30 mL, Oral, Q8H, PRN Ambien, 5 mg= 1 Tab, Oral, At Bedtime, PRN Benadryl, 50 mg= 2 Tab, Oral, Q6H, PRN Benadryl, 50 mg= 1 mL, IV Push, 1-Time, PRN Brethine, 0.25 mg= 0.25 mL, SubCutaneous, Q20Min, PRN Colace, 100 mg= 1 Cap, Oral, Q12H, PRN Cytotec, 50 mcg= 0.5 Tab, SubLINgual, Q4H Lactated Ringers Injection intravenous solution 1,000 mL, 1000 mL, IntraVENous nalbuphine, 10 mg= 1 mL, IV Push, Q3H, PRN Normal Saline Flush, 10 mL, IV Push, See Comment, PRN oxytocin injection 20 Units + Lactated Ringers Premix Diluent 1,000 mL oxytocin injection 20 Units [0.2 Units/Hr] + Lactated Ringers Premix Diluent 1,000 mL Penicillin G Potassium Pepcid, 20 mg= 2 mL, IV Push, Q12H, PRN Phenergan, 12.5 mg= 0.5 mL, IV Push, Q6H, PRN Tylenol, 650 mg= 2 Tab, Oral, Q4H, PRN Tylenol, 1000 mg= 2 Tab, Oral, Q8H, PRN Zofran, 4 mg= 2 mL, IV Push, Q4H, PRN Home HumaLOG KwikPen 100 units/mL injectable solution, 36 Units, SubCutaneous, TID With Meals Lantus Solostar Pen 100 units/mL subcutaneous solution, 91 Units, SubCutaneous, At Bedtime levothyroxine, 50 mcg, Daily Multivitamins oral tablet Problem List/Past Medical History Ongoing No qualifying data Historical No qualifying data Social History Document (if any) Cultural/Rastafari beliefs that would affect medical care: Lab Results APR 03 23:57 137 107 12 / H 128 3.6 21 0.62 \ Electronic Monitoring 140s, mod variability, +accels, occ variable decel with quick return to baseline documented in this encounter Plan of Treatment Not on file documented as of this encounter Visit Diagnoses Not on filedocumented in this encounter
--- OUTSIDE RECORDS SUMMARY | 2024-06-26 16:10 | XMS_ITS | Encounter Summary ---
Author Organization [employer] Address [address] [place] [id number] Care Team Providers Care Wire Bender Name Role Phone Unavailable Primary Care Provider Unavailabl e Encounter Details Date Type Department Care Team (Late st Contact Info) Description 01/27/2019 Transcribed Document [facility] [place] [facility] [place] [address] ProviderVineet MD [facility] [place] [address] Social History Tobacco Use Types Packs/Day Years Used Date Smoking Tobacco: Never Assessed Comments Unknown Sex and Gender Information Value Date Recorded Sex Assigned at Not on file Legal Sex Female 3:37 PM CDT Gender Identity Not on file Sexual Orientation Not on file documented as of this encounter Miscellaneous Notes * Cerner Conversion Note - Vineet Fitzgerald MD - 01/27/2019 9:31 PM CDT [place] [id number] PAT MURPHY SERGIO :1990 Visit Time:01/27/2019 Your Visit Summary Your Care Team Admitting Physician - LAUREN ESCOBAR MD-OBG Attending Physician - LAUREN ESCOBAR MD-OBG Primary Care Physician - KLEBER GREENE (REF), -[facility] Referring Physician - LAUREN ESCOBAR MD-OBG Your Diagnosis 28 weeks gestation of Adult BMI 40.0-44.9 kg/sq m Bladder infection in mother during third trimester of Decreased movement affecting management of in third trimester Encounter for supervision of normal first , unspecified trimester, Encounter for supervision of normal first , unspecified trimester Insulin controlled gestational diabetes mellitus (GDM) in third trimester NST (non-stress test) reactive Obesity complicating in third trimester Discharge Vitals Temperature 36.6 ??C Respiratory Rate 18 Blood Pressure 118/58 What to do next Follow-Up Appointments Follow Up with LAUREN ESCOBAR When Within 5 to 7 days Comments Emergency Follow-up Care: Return to the [facility] (MELANIE) for any increase in intensity or frequency of current problem, excessive or an increase in vaginal bleeding, perceived loss of fluid, fever >100.4F, worsening/more frequent contractions, reduced movement, persistent blood pressures of 160 mm/hg or greater systolic or 110 mm/hg or greater diastolic, headache not relieved by Tylenol or for any reason which may create concern for the patient or her family/partner/friends. Where: [address] [place] [address] Business (1) Medications What How Much When Instructions Next Dose nitrofurantoin (Macrobid 100 mg oral capsule) 1 Capsule(s) Oral Two Times A Day Duration: 10 Day(s) Printed Prescription insulin glargine (Lantus Solostar Pen 100 units/ mL subcutaneous solution) 66 Unit(s) SubCutaneous At Bedtime insulin lispro (HumaLOG KwikPen 100 units/ mL injectable solution) 24 Unit(s) SubCutaneous Before Breakfast insulin lispro (HumaLOG KwikPen) 20 Unit(s) SubCutaneous Before Dinner insulin lispro (HumaLOG KwikPen) 18 Unit(s) SubCutaneous Before Lunch levothyroxine 50 Microgram(s) Every Day multivitamin, ( [...] This Visit No Immunizations Found Education Materials Urinary Tract Infection, Adult A urinary tract infection (UTI) is an infection of any part of the urinary tract. The urinary tract includes the: ??? Kidneys. ??? Ureters. ??? Bladder. ??? Urethra. These organs make, store, and get rid of pee (urine) in the body. Follow these instructions at home: ??? Take crdj-iwy-jytdruj and prescription medicines only as told by your doctor. ??? If you were prescribed an antibiotic medicine, take it as told by your doctor. Do not stop taking the antibiotic even if you start to feel better. ??? Avoid the following drinks: ? Alcohol. ? Caffeine. ? Tea. ? Carbonated drinks. ??? Drink enough fluid to keep your pee clear or pale yellow. ??? Keep all follow-up visits as told by your doctor. This is important. ??? Make sure to: ? Empty your bladder often and completely. Do not to hold pee for long periods of time. ? Empty your bladder before and after sex. ? Wipe from front to back after a bowel movement if you are female. Use each tissue one time when you wipe. Contact a doctor if: ??? You have back pain. ??? You have a fever. ??? You feel sick to your stomach (nauseous). ??? You throw up (vomit). ??? Your symptoms do not get better after 3 days. ??? Your symptoms go away and then come back. Get help right away if: ??? You have very bad back pain. ??? You have very bad lower belly (abdominal) pain. ??? You are throwing up and cannot keep down any medicines or water. This information is not intended to replace advice given to you by your health care provider. Make sure you discuss any questions you have with your health care provider. Document Released: 12/27/2008 Document Revised: 01/03/2018 Document Reviewed: 05/31/2016 [employer] Interactive Patient Education ?? 2019 [employer]. nitrofurantoin (SUJITJulio Cesar DE LUNA toin) Furadantin, Macrobid, Macrodantin What is the most important information I should know about nitrofurantoin? You should not take nitrofurantoin if you have severe kidney disease, urination problems, or a history of jaundice or liver problems caused by nitrofurantoin. Do not take nitrofurantoin if you are in the last 2 to 4 weeks of . What is nitrofurantoin? Nitrofurantoin is an antibiotic that fights bacteria in the body. Nitrofurantoin is used to treat urinary tract infections. Nitrofurantoin may also be used for purposes not listed in this medication guide. What should I discuss with my healthcare provider before taking nitrofurantoin? You should not take nitrofurantoin if you are allergic to it, or if you have: ? severe kidney disease; ?? a history of jaundice or liver problems caused by taking nitrofurantoin; ?? if you are urinating less than usual or not at all; or ?? if you are in the last 2 to 4 weeks of . Do not take nitrofurantoin if you are in the last 2 to 4 weeks of . To make sure nitrofurantoin is safe for you, tell your doctor if you have: ? kidney disease; ?? anemia; ?? diabetes; ?? an electrolyte imbalance or vitamin B deficiency; ?? veqivxy-6-kqyhwuxnv dehydrogenase (G6PD) deficiency; or ?? any type of debilitating disease. FDA category B. This medicine is not expected to be harmful to an unborn baby during early . Tell your doctor if you are or plan to become during treatment. Nitrofurantoin can pass into breast milk and may harm a nursing baby. You should not breast-feed while you are taking nitrofurantoin. Nitrofurantoin should not be given to a child younger than 1 month old. How should I take nitrofurantoin? Follow all directions on your prescription label. Do not take this medicine in larger or smaller amounts or for longer than recommended. Take nitrofurantoin with food. Shake the oral suspension (liquid) well just before you measure a dose. Measure liquid medicine with the dosing syringe provided, or with a special dose-measuring spoon or medicine cup. If you do not have a dose-measuring device, ask your pharmacist for one. You may mix your liquid dose with water, milk, or fruit juice to make it easier to swallow. Drink the entire mixture right away. Use this medicine for the full prescribed length of time. Your symptoms may improve before the infection is completely cleared. Skipping doses may also increase your risk of further infection that is resistant to antibiotics. Nitrofurantoin will not treat a viral infection such as the common cold or flu. Nitrofurantoin is usually given for up to 3 days after lab tests show that the infection has cleared. If you use this medicine long-term, you may need frequent medical tests at your doctor's office. Nitrofurantoin can cause unusual results with certain lab tests for glucose (sugar) in the urine. Tell any doctor who treats you that you are using nitrofurantoin. Store at room temperature away from moisture, heat, and light. What happens if I miss a dose? Take the missed dose as soon as you remember. Skip the missed dose if it is almost time for your next scheduled dose. Do not take extra medicine to make up the missed dose. What happens if I overdose? Seek emergency medical attention or call the Poison Help line at . What should I avoid while taking nitrofurantoin? Antibiotic medicines can cause diarrhea, which may be a sign of a new infection. If you have diarrhea that is watery or has blood in it, call your doctor. Do not use any medicine to stop the diarrhea unless your doctor has told you to. Avoid using antacids without your doctor's advice. Use only the type of antacid your doctor recommends. Some antacids can make it harder for your body to absorb nitrofurantoin. What are the possible side effects of nitrofurantoin? Get emergency medical help if you have any of these signs of an allergic reaction: hives; difficult breathing; swelling of your face, lips, tongue, or throat. Call your doctor at once if you have: ? diarrhea that is watery or bloody; ?? sudden chest pain or discomfort, wheezing, dry cough or hack; ?? new or worsening cough, trouble breathing; ?? fever, chills, body aches, tiredness, unexplained weight loss; ?? numbness, tingling, or pain in your hands or feet; ?? liver problems--nausea, upper stomach pain, itching, tired feeling, loss of appetite, dark urine, annette-colored stools, jaundice (yellowing of the skin or eyes); or ?? lupus-like syndrome--joint pain or swelling with fever, swollen glands, muscle aches, chest pain, vomiting, unusual thoughts or behavior, and patchy skin color. Serious side effects may be more likely in older adults and those who are ill or debilitated. Common side effects may include: ? headache, dizziness; ?? gas, upset stomach; ?? mild diarrhea; or ?? vaginal itching or discharge. This is not a complete list of side effects and others may occur. Call your doctor for medical advice about side effects. You may report side effects to FDA at 6-163-VEQ-1743. What other drugs will affect nitrofurantoin? Other drugs may interact with nitrofurantoin, including prescription and nwsj-unz-jizeinn medicines, vitamins, and herbal products. Tell each of your health care providers about all medicines you use now and any medicine you start or stop using. Where can I get more information? Your pharmacist can provide more information about nitrofurantoin. Remember, keep this and all other medicines out of the reach of children, never share your medicines with others, and use this medication only for the indication prescribed. Every effort has been made to ensure that the information provided by [facility]. ('[employer]') is accurate, up-to-date, and complete, but no guarantee is made to that effect. Drug information contained herein may be time sensitive. [employer] information has been compiled for use by healthcare practitioners and consumers in the [place] and therefore [employer] does not warrant that uses outside of the [place] are appropriate, unless specifically indicated otherwise. [employer]'s drug information does not endorse drugs, diagnose patients or recommend therapy. [employer] drug information is an informational resource designed [...] effective or appropriate for any given patient. [facility] does not assume any responsibility for any aspect of healthcare administered with the aid of information [facility] provides. The information contained herein is not intended to cover all possible uses, directions, precautions, warnings, drug interactions, allergic reactions, or adverse effects. If you have questions about the drugs you are taking, check with your doctor, nurse or pharmacist. Copyright 0141-2542 [facility]. Version: 8.01. Revision Date: 10/02/2013. Emergency Awareness and Preventative Care STROKE is [...] Assistance with quitting is available by contacting 4-848-GZTI-NOW. This is a free resource providing counseling, [...] This Visit (last charted value for your 01/27/2019 visit) Hematology 01/27/19 20:00:00 WBC: 13.9 K/uL -- Normal range between ( 3.9 and 10.0 ) RBC: 3.61 Million/uL -- Normal range between ( 3.93 and 5.22 ) Hct: 32.7 % -- Normal range between ( 34.1 and 44.9 ) Hgb: 11.3 Gram/dL -- Normal range between ( 11.2 and 15.7 ) Platelet Count: 275 K/uL -- Normal range between ( 163 and 369 ) MCH: 31.3 pg -- Normal range between ( 25.6 and 32.2 ) MCHC: 34.6 Gram/dL -- Normal range between ( 32.3 and 36.5 ) MCV: 90.6 fL -- Normal range between ( 79.0 and 94.8 ) Slide Review: No Eos %: 1.4 % -- Normal range between ( 1.0 and 7.0 ) [place] #: 1.04 K/uL -- Normal range between ( 0.24 and 0.82 ) Eos #: 0.19 K/uL -- Normal range between ( 0.04 and 0.54 ) [place] %: 7.5 % -- Normal range between ( 4.7 and 12.5 ) Baso %: 0.4 % -- Normal range between ( 0.0 and 1.0 ) Baso #: 0.05 K/uL -- Normal range between ( 0.01 and 0.08 ) RDW: 13.0 % -- Normal range between ( 11.6 and 14.4 ) Neut %: 69.5 % -- Normal range between ( 34.0 and 71.0 ) Neut #: 9.64 K/uL -- Normal range between ( 1.56 and 6.13 ) Lymph %: 20.8 % -- Normal range between ( 19.3 and 53.0 ) Lymph #: 2.89 K/uL -- Normal range between ( 1.18 and 3.74 ) MPV: 9.6 fL -- Normal range between ( 9.4 and 12.4 ) IG#: 0 x10(3)/uL IG%: 0 % -- Normal range between ( 0 and 1 ) Urinalysis 01/27/19 18:39:00 Ur RBC: 0-2 /HPF Urine Nitrite: Negative Urine Leukocyte Esterase: Moderate Ur Epithelial Cells: 20-50 /HPF Urine Appearance: Cloudy Urine Glucose Dipstick: Negative Urine Blood Dipstick: Negative Urine Type: U CleanCatch Urine Urobilinogen Dipstick: 0.2 EU/dL -- Normal range between ( 0.2 and 1.0 ) Ur Calcium Oxalate Crystals: Trace Urine Protein Dipstick: Negative Ur Bacteria: Trace Urine Color: Yellow Ur WBC: 5-10 /HPF Urine Ketones Dipstick: Negative Urine pH Dipstick: 6.0 -- Normal range between ( 6.0 and 8.0 ) Urine Bilirubin Dipstick: Negative Urine Specific Elk: 1.020 -- Normal range between ( 1.005 and 1.030 ) General Chemistry 01/27/19 20:00:00 Creatinine Level: 0.51 mg/dL -- Normal range between ( 0.55 and 1.02 ) Sodium Level: 140 mmol/L -- Normal range between ( 136 and 146 ) Potassium Level: 3.5 mmol/L -- Normal range between ( 3.5 and 5.1 ) Chloride Level: 109 mmol/L -- Normal range between ( 102 and 112 ) Carbon Dioxide Level: 25 mmol/L -- Normal range between ( 21 and 32 ) Anion Gap: 10 -- Normal range between ( 9 and 20 ) Bilirubin Total: 0.2 mg/dL -- Normal range between ( 0.2 and 1.3 ) A/G Ratio: 0.8 -- Normal range between ( 1.1 and 2.5 ) ALT: 22 Units/Liter -- Normal range between ( 12 and 78 ) AST: 13 Units/Liter -- Normal range between ( 5 and 37 ) Globulin: 3.7 Gram/dL -- Normal range between ( 1.5 and 4.5 ) Alk Phos: 68 Units/Liter -- Normal range between ( 27 and 136 ) Bun/Creatinine: 15.7 -- Normal range between ( 8.0 and 20.0 ) Calcium Level: 8.6 mg/dL -- Normal range between ( 8.5 and 10.1 ) eGFR : >60 mL/min/1.73m2 eGFR NonAfrican: >60 mL/min/1.73m2 Glucose Level: 53 mg/dL -- Normal range between ( 74 and 106 ) Blood Urea Nitrogen: 8 mg/dL -- Normal range between ( 7 and 22 ) Protein Total: 6.5 Gram/dL -- Normal range between ( 6.4 and 8.2 ) Albumin Level: 2.8 Gram/dL -- Normal range between ( 3.4 and 5.0 ) Toxicology 01/27/19 18:39:00 UDS Amp: Negative UDS Lydia: Negative UDS Benzo: Negative UDS Wendy: Negative UDS Meth: Negative UDS Opi: Negative UDS Oxy: Negative UDS PCP: Negative UDS TCA: Negative UDS THC: Negative Buprenorphine Screen, Urine: Negative Heroin Metab (6AM) by LC-MS/MS, Urine: Negative SpGravity, Urine: 1.020 Propoxyphene, Urine: Negative UDS pH: 7.1 UDS Creatinine, Toxicology: 163.8 mg/dL Ultrasound 01/27/19 21:01:34 US OB 2 or 3 Tri Sgl 1st Gest: US OB 2 or 3 Tri Sgl 1st Gest Patient Name:PAT MURPHY I have received and understand this information and was given the opportunity to ask questions. Patient/Taffy Candy Maker Name: Patient/Taffy Candy Maker Signature: Relationship to Patient: Clinician/Hospital Taffy Candy Maker Signature: Date: Electronically signed by Vladimir, [facility] Conversion Top Lift And Automatic Window Repairer Juanita at 11/12/2022 2:36 PM CDT documented in this encounter Plan of Treatment Not on file documented as of this encounter Visit Diagnoses Not on filedocumented in this encounter
--- OUTSIDE RECORDS SUMMARY | 2024-06-26 16:10 | XMS_ITS | Encounter Summary ---
Author Organization [employer] Address [address] [place] [address] Care Team Providers Care Air Traffic Instructor Name Role Phone Unavailable Primary Care Provider Unavailabl e Encounter Details Date Type Department Care Team (Late st Contact Info) Description 01/27/2019 Transcribed Document [facility] [place] Family Medicine [facility] [place] [address] ProviderVineet MD [facility] [place] [address] Social History Tobacco Use Types Packs/Day Years Used Date Smoking Tobacco: Never Assessed Comments Unknown Sex and Gender Information Value Date Recorded Sex Assigned at Not on file Legal Sex Female 3:37 PM CDT Gender Identity Not on file Sexual Orientation Not on file documented as of this encounter Miscellaneous Notes * Cerner Conversion Note - Vineet ProviderMD - 01/27/2019 7:36 PM CDT Admission Data, OB Entered On: 01/27/2019 19:39 EDT Performed On: 01/27/2019 19:36 EDT by Angie Fuchs RN Advance Directive Patient has Advance Directive *Q : No, patient refuses Advance Directive information Angie Fuchs RN - 01/27/2019 19:36 EDT Height and Weight Height Source : Stated Height Entry Format : Jean Height, Feet : 5 ft(Converted to: 152 cm, 60 Inch) Clinical Height : 172.72 cm Height, Inches : 8 Inch(Converted to: 0 ft 8 Inch, 20.32 cm) Weight Source : Standing scale Weight Entry Format : Jean Weight, Pounds : 284 lb Clinical Dosing Weight : 129.09 kg Body Surface Area (BSA) : 2.37 m2 Body Mass Index : 43.3 kg/m2 (>HHI) Lotus Body Weight (IBW) : 63.45 kg Angie Fuchs RN - 01/27/2019 19:36 EDT Health Histories Smoking Status : Former smoker, quit more than 30 days ago Smokeless Tobacco Status : Never Angie Fuchs RN - 01/27/2019 19:36 EDT Social History (As Of: 01/27/2019 19:39:36 EDT) Gestational Age Gestational Age Person Gestational Age At : 201days Method : Comment : Tetanus Immunization Status Previous Tetanus Immunizations : No qualifying data available. Tetanus Immunization : Unknown Angie Fuchs RN - 01/27/2019 19:36 EDT Influenza Vaccine Asmt, Adult Previous Vaccines from Immunization Schedule : No qualifying data available. Influenza Immunization, Current Season : Outside of influenza season Angie Fuchs RN - 01/27/2019 19:36 EDT Pneumococcal Vaccine Previous Vaccines from Immunization Schedule : No qualifying data available. Pneumonia Immunization Received : No Pneumococcal Risk Assessment < Age 65 : None Angie Fuchs RN - 01/27/2019 19:36 EDT Order Details Transport Mode Order Detail : Ambulatory Isolation Precautions Order Detail : Standard Precautions Order Detail : 1 IV Order Detail : 0 Oxygen Order Detail : 0 Nurse Collect Order Detail : 1 Lift/Transfer : Independent Central Line Order Detail : No Room Service : Appropriate Arterial Line : No Angie Fuchs RN - 01/27/2019 19:36 EDT Vital Measurements Temperature Source : Oral Temperature, Fahrenheit : 97.9 Deg F Clinical Temperature, C : 36.6 Deg C Pulse Method : Non-Invasive BP Device Pulse Source : Brachial, Left Peripheral Pulse Rate : 82 bpm Pulse Rhythm : Regular Respiratory Rate : 18 Breaths/Min Blood Pressure Location : Arm, left upper Blood Pressure Source : Non-Invasive BP Device Blood Pressure Position : Sitting Systolic Blood Pressure : 118 mmHg Diastolic Blood Pressure : 58 mmHg (LOW) Angie Fuchs RN - 01/27/2019 19:36 EDT Infectious Disease History Infectious Disease History : Chicken pox/Shingles Fever/Chills Last 48 Hours : No Travel To Regions with Travel Advisories : No Travel Outside [place] Within Last 30 Days : No Contact With Traveler to Advisory Region : No Tuberculosis Symptoms : None Angie Fuchs RN - 01/27/2019 19:36 EDT documented in this encounter Plan of Treatment Not on file documented as of this encounter Visit Diagnoses Not on filedocumented in this encounter
--- OUTSIDE RECORDS SUMMARY | 2024-06-26 16:10 | XMS_ITS | Encounter Summary ---
Author Organization [employer] Address [address] [place] [address] Care Team Providers Care Web Content & Social Media Manager Name Role Phone Unavailable Primary Care Provider Unavailabl e Encounter Details Date Type Department Care Team (Late st Contact Info) Description 01/27/2019 Transcribed Document [facility] [place] Family Medicine [address] [place] [address] ProviderVineet MD [address] [place] [address] Social History Tobacco Use Types Packs/Day Years Used Date Smoking Tobacco: Never Assessed Comments Unknown Sex and Gender Information Value Date Recorded Sex Assigned at Not on file Legal Sex Female 3:37 PM CDT Gender Identity Not on file Sexual Orientation Not on file documented as of this encounter Miscellaneous Notes * Cerner Conversion Note - Vineet Fitzgerald MD - 01/27/2019 9:29 PM CDT Patient Education Materials Follows:and Gynecology Urinary Tract Infection, Adult A urinary tract infection (UTI) is an infection of any part of the urinary tract. The urinary tract includes the: ??? Kidneys. ??? Ureters. ??? Bladder. ??? Urethra. These organs make, store, and get rid of pee (urine) in the body. Follow these instructions at home: ??? Take pvry-cbg-watbbfz and prescription medicines only as told by [...] 12/27/2008 Document Revised: 01/03/2018 Document Reviewed: 05/31/2016 [employer] Patient Education ? 2019 [employer]. Electronically signed by Shereen Gilbert Conversion Front End Developer Designer Cerner at 11/12/2022 2:33 PM CDT documented in this encounter Plan of Treatment Not on file documented as of this encounter Visit Diagnoses Not on filedocumented in this encounter
--- OUTSIDE RECORDS SUMMARY | 2024-06-26 16:10 | XMS_ITS | Encounter Summary ---
Author Organization [employer] Address [address] [place] [id number] Care Team Providers Care [employer] Officer Name Role Phone Unavailable Primary Care Provider Unavailabl e Encounter Details Date Type Department Care Team (Late st Contact Info) Description 11/02/2018 Transcribed Document [facility] [place] Family Medicine Formerly [facility] [place] [address] ProviderVineet MD [address] [place] [address] Social History Tobacco Use Types Packs/Day Years Used Date Smoking Tobacco: Never Assessed Comments Unknown Sex and Gender Information Value Date Recorded Sex Assigned at Not on file Legal Sex Female 3:37 PM CDT Gender Identity Not on file Sexual Orientation Not on file documented as of this encounter Miscellaneous Notes * Cerner Conversion Note - Vineet Fitzgerald MD - 11/02/2018 8:45 PM CDT Patient Education Materials Follows:and Gynecology Abdominal Pain During Belly (abdominal) pain is common during . Most of the time, it is not a serious problem. Other times, it can be a sign that something is wrong with the . Always tell your doctor if you have belly pain. Follow these instructions at home: Monitor your belly pain for any changes. The following actions may help you feel better: ??? Do not have sex (intercourse) or put anything in your vagina until you feel better. ??? Rest until your pain stops. ??? Drink clear fluids if you feel sick to your stomach (nauseous). Do not eat solid food until you feel better. ??? Only take medicine as told by your doctor. ??? Keep all doctor visits as told. Get help right away if: ??? You are bleeding, leaking fluid, or pieces of tissue come out of your vagina. ??? You have more pain or cramping. ??? You keep throwing up (vomiting). ??? You have pain when you pee (urinate) or have blood in your pee. ??? You have a fever. ??? You do not feel your baby moving as much. ??? You feel very weak or feel like passing out. ??? You have trouble breathing, with or without belly pain. ??? You have a very bad headache and belly pain. ??? You have fluid leaking from your vagina and belly pain. ??? You keep having watery poop (diarrhea). ??? Your belly pain does not go away after resting, or the pain gets worse. This information is not intended to replace advice given to you by your health care provider. Make sure you discuss any questions you have with your health care provider. Document Released: 06/29/2010 Document Revised: 02/16/2017 Document Reviewed: 02/07/2014 Elsevier Interactive Patient Education ? 2017 [employer] documented in this encounter Plan of Treatment Not on file documented as of this encounter Visit Diagnoses Not on filedocumented in this encounter
--- OUTSIDE RECORDS SUMMARY | 2024-06-26 16:10 | XMS_ITS | Encounter Summary ---
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 Name Role Phone Unavailable Primary Care Provider Unavailabl e Encounter Details Date Type Department Care Team (Late st Contact Info) Description 01/27/2019 Historic Encounter [facility] Radiology [address] [place] [address] Kwesi Cruz MD [address] [address] Social History Tobacco Use Types Packs/Day Years [...] Associated Diagnosis Comments OB URINE DRUG SCRN ([facility] BKR DATA CONV) Routine 02/08/2019 1:57 PM EDT OB 2 OR 3 TRI SGL 1ST GEST STAT 01/27/2019 9:29 PM EDT CBC W/ AUTO DIFF ([facility] BKR DATA CONV) Routine 01/27/2019 8:00 PM EDT AUTOMATED DIFFERENTIAL ([facility] BKR DATA CONV) Routine 01/27/2019 8:00 PM EDT CMP COMPREHENSIVE METABOLIC PANEL ([facility] BKR DATA CONV) Routine 01/27/2019 8:00 PM EDT OB URINE DRUG SCRN ([facility] BKR DATA CONV) Routine 01/27/2019 6:39 PM EDT URINALYSIS W/ MICROSCOPIC NO CULTURE ([facility] BKR DATA CONV) Routine 01/27/2019 6:39 PM EDT URINALYSIS MICROSCOPIC ([facility] BKR DATA CONV) Routine 01/27/2019 6:39 PM EDT documented in this encounter Results * OB URINE DRUG SCRN ([facility] BKR DATA CONV) (02/08/2019 1:57 PM EDT) UDS Amp Negative Negative 02/08/2019 6:34 PM EDT Comment: Cutoff 500 ng/ml Test is for screening purposes only. Clinical consideration and professional judgement should be applied to any qdem-sf-obsfg test result, particularly when preliminary positive results [...] or drug use. UDS Lydia Negative Negative 02/08/2019 6:34 PM EDT Comment:Cutoff 200 ng/ml UDS Benzo Negative Negative 02/08/2019 6:34 PM EDT Comment:Cutoff 150 ng/ml UDS Wendy Negative 02/08/2019 6:34 PM EDT Comment:Cutoff 150 ng/ml UDS Meth Negative Negative 02/08/2019 6:34 PM EDT Comment:Cutoff 300 ng/ml UDS Opi Negative Negative 02/08/2019 6:34 PM EDT Comment:Cutoff 300ng/ml UDS Oxy Negative Negative 02/08/2019 6:34 PM EDT Comment:Cutoff 50 ng/ml UDS PCP Negative Negative 02/08/2019 6:34 PM EDT Comment:Cutoff 25 ng/ml UDS TCA Negative Negative 02/08/2019 6:34 PM EDT Comment:Cutoff 1000 ng/ml UDS THC Negative Negative 02/08/2019 6:34 PM EDT Comment:Cutoff 20 ng/ml Buprenorphine Screen, Urine Negative Negative 02/08/2019 6:34 PM EDT Comment:Cutoff 5 ng/ml Heroin Metab(6AM) by LC-MS/MS, Urine Negative Negative 02/08/2019 6:34 PM EDT Comment: Cutoff 10 ng/ml Screening only. Clinical consideration and professional judgement should be applied to any drug of abuse test result, particularly when preliminary positive results are used. Positive results should be confirmed if used for clinical or legal purposes. Propoxyphene, Urine Negative Negative 02/08/2019 6:34 PM EDT Comment:Cutoff 25 ng/ml UDS pH 8.6 02/08/2019 6:34 PM EDT [place], Urine 1.010 02/08/2019 6:34 PM EDT UDS Creatinine, Toxicology 61.8 mg/dL 02/08/2019 6:34 PM EDT Urine 02/08/2019 1:57 PM EDT 02/08/2019 6:08 PM EDT us [facility] Historical Provider URINE ORDERABLES Final Result Performing Organization Address City/State/[facility] Co de Phone Number [facility] [address] [place] [address] * US OB 2 or 3 Tri Sgl 1st Gest (01/27/2019 9:29 PM EDT) Anatomical Region Laterality Modality Ultrasound 01/27/2019 9:29 PM EDT Narrative 01/28/2019 2:18 AM EDT LIMITED OBSTETRIC ULTRASOUND HISTORY: Decreased movement.. PROCEDURE: Transabdominal images were obtained. COMPARISON: 09/12/2018. FINDINGS: There is a single intrauterine . A heart rate of 144 bpm is detected. movement was observed, although the patient did not feel this movement. The fetus is in cephalic presentation. There is a normal-appearing fundal placenta. The amount of amniotic fluid is within normal limits. The amniotic fluid index is 10.2 cm. measurements were not obtained. IMPRESSION: Living intrauterine .. ?? Procedure Note Kwesi Cruz MD - 11/09/2022 LIMITED OBSTETRIC ULTRASOUND HISTORY: Decreased movement.. PROCEDURE: Transabdominal images were obtained. COMPARISON: 09/12/2018. FINDINGS: There is a single intrauterine . A heart rate of 144 bpm is detected. movement was observed, although the patient did not feel this movement. The fetus is in cephalic presentation. There is a normal-appearing fundal placenta. The amount of amniotic fluid is within normal limits. The amniotic fluid index is 10.2 cm. measurements were not obtained. IMPRESSION: Living intrauterine .. Kwesi Cruz MD G ORDERABLES Final Result * (ABNORMAL) CBC W/ AUTO DIFF ([facility] BKR DATA CONV) (01/27/2019 8:00 PM EDT) Pathologist [facility] WBC 13.9(H) 3.9 - 10.0 K/uL 01/28/2019 12:36 AM EDT RBC 3.61(L) 3.93 - 5.22 Million/uL 01/28/2019 12:36 AM EDT Comment: No Red Blood Cell [...] ??12 ??Years ??150 ??Years ??3.93 5.22 Hgb 11.3 11.2 - 15.7 Gram/dL 01/28/2019 12:36 AM EDT Comment: No Hemoglobin reference ranges [...] ??12 ??Years ??150 ??Years ??11.2 15.7 Hct 32.7(L) 34.1 - 44.9 % 01/28/2019 12:36 AM EDT Comment: No Hematocrit reference ranges [...] ??12 ??Years ??150 ??Years ??34.1 44.9 MCV 90.6 79.0 - 94.8 fL 01/28/2019 12:36 AM EDT MCH 31.3 25.6 - 32.2 pg 01/28/2019 12:36 AM EDT MCHC 34.6 32.3 - 36.5 Gram/dL 01/28/2019 12:36 AM EDT RDW 13.0 11.6 - 14.4 % 01/28/2019 12:36 AM EDT Platelet Count 275 163 - 369 K/uL 01/28/2019 12:36 AM EDT MPV 9.6 9.4 - 12.4 fL 01/28/2019 12:36 AM EDT Slide Review No 01/28/2019 12:41 AM EDT Blood 01/27/2019 8:00 PM EDT 01/28/2019 12:23 AM EDT [facility]le Historical Provider LAB BLOOD ORDERABLES Fi nal Result [facility] [address] [place] [address], [facility] [phone] * (ABNORMAL) AUTOMATED DIFFERENTIAL ([facility] BKR DATA CONV) (01/27/2019 8:00 PM EDT) Neut% 69.5 34.0 - 71.0 % 01/28/2019 12:36 AM EDT Lymph% 20.8 19.3 - 53.0 % 01/28/2019 12:36 AM EDT [place]% 7.5 4.7 - 12.5 % 01/28/2019 12:36 AM EDT Eos% 1.4 1.0 - 7.0 % 01/28/2019 12:36 AM EDT Baso% 0.4 0.0 - 1.0 % 01/28/2019 12:36 AM EDT IG% 0 0 - 1 % 01/28/2019 12:36 AM EDT Neut# 9.64(H) 1.56 - 6.13 K/uL 01/28/2019 12:36 AM EDT Lymph# 2.89 1.18 - 3.74 K/uL 01/28/2019 12:36 AM EDT [place]# 1.04(H) 0.24 - 0.82 K/uL 01/28/2019 12:36 AM EDT Eos# 0.19 0.04 - 0.54 K/uL 01/28/2019 12:36 AM EDT Baso# 0.05 0.01 - 0.08 K/uL 01/28/2019 12:36 AM EDT IG# 0 0 - 0 x10(3)/uL 01/28/2019 12:36 AM EDT Blood 01/27/2019 8:00 PM EDT 01/28/2019 12:23 AM EDT Narrative [facility] - 01/28/2019 12:41 AM EDT Added by Discern Expert us [facility] Historical Provider LAB BLOOD ORDERABLES Fi nal Result [facility] [address] [place] [id number] [phone] * (ABNORMAL) CMP COMPREHENSIVE METABOLIC PANEL ([facility] BKR DATA CONV) (01/27/2019 8:00 PM EDT) Sodium Level 140 136 - 146 mmol/L 01/28/2019 12:43 AM EDT Potassium Level 3.5 3.5 - 5.1 mmol/L 01/28/2019 12:43 AM EDT Chloride Level 109 102 - 112 mmol/L 01/28/2019 12:43 AM EDT Carbon Dioxide Level 25 21 - 32 mmol/L 01/28/2019 12:43 AM EDT Anion Gap 10 9 - 20 01/28/2019 12:43 AM EDT Calcium Level 8.6 8.5 - 10.1 mg/dL 01/28/2019 12:43 AM EDT Glucose Level 53(L) 74 - 106 mg/dL 01/28/2019 12:43 AM EDT Comment: [facility] has become aware of sulfasalazine and sulfapyridine [...] administration of the drug. Blood Urea Nitrogen 8 7 - 22 mg/dL 01/28/2019 12:43 AM EDT Creatinine Level 0.51(L) 0.55 - 1.02 mg/dL 01/28/2019 12:43 AM EDT Bun/Creatinine 15.7 8.0 - 20.0 01/28/2019 12:43 AM EDT Albumin Level 2.8(L) 3.4 - 5.0 Gram/dL 01/28/2019 12:43 AM EDT Protein, Total 6.5 6.4 - 8.2 Gram/dL 01/28/2019 12:43 AM EDT A/G Ratio 0.8(L) 1.1 - 2.5 01/28/2019 12:43 AM EDT Alk Phos 68 27 - 136 Units/Lit er 01/28/2019 12:43 AM EDT ALT 22 12 - 78 Units/Lit er 01/28/2019 12:43 AM EDT Comment: [facility] has become aware of sulfasalazine and sulfapyridine [...] occur prior to administration of the drug. AST 13 5 - 37 Units/Lit er 01/28/2019 12:43 AM EDT Comment: [facility] has become aware of sulfasalazine and sulfapyridine [...] occur prior to administration of the drug. Bilirubin, Total 0.2 0.2 - 1.3 mg/dL 01/28/2019 12:43 AM EDT Globulin 3.7 1.5 - 4.5 Gram/dL 01/28/2019 12:43 AM EDT eGFR >60 >=60 mL/min/1. 73m2 01/28/2019 12:43 AM EDT Comment: GFR <60 suggests chronic kidney disease, if found over 3 month period. GFR <15 indicates renal failure. eGFR NonAfrican >60 >=60 mL/min/1. 73m2 01/28/2019 12:43 AM EDT Comment: GFR <60 suggests chronic kidney disease, if found over 3 month period. GFR <15 indicates renal failure. Blood 01/27/2019 8:00 PM EDT 01/28/2019 12:23 AM EDT [facility] Historical Provider LAB BLOOD ORDERABLES nal Result [facility] [address] [phone] * (ABNORMAL) URINALYSIS W/ MICROSCOPIC NO CULTURE ([facility] BKR DATA CONV) (01/27/2019 6:39 PM EDT) Urine Type U CleanCatch 01/27/2019 10:25 PM EDT Urine Color Yellow 01/27/2019 11:07 PM EDT Comment: Substances that cause HIGHLY abnormal urine color may affect the accuracy of URINE CHEMISTRY reagent strip results due to colorimetric interference. ??These include visible levels of blood or bilirubin, drugs containing dyes, and some antibiotics such as nitrofurantoin and riboflavin which can cause markedly abnormal urine coloration. Urine Appearance Cloudy(A) 01/27/2019 11:07 PM EDT Urine Specific [place] 1.020 1.005 - 1.030 01/27/2019 11:07 PM EDT Urine pH Dipstick 6.0 6.0 - 8.0 01/27/2019 11:07 PM EDT Urine Leukocyte Esterase Moderate(A) Negative 01/27/2019 11:07 PM EDT Urine Nitrite Negative Negative 01/27/2019 11:07 PM EDT Urine Protein Dipstick Negative Negative 01/27/2019 11:07 PM EDT Urine Glucose Dipstick Negative Negative 01/27/2019 11:07 PM EDT Urine Ketones Dipstick Negative Negative 01/27/2019 11:07 PM EDT Urine Urobilinogen Dipstick 0.2 0.2 - 1.0 EU/dL 01/27/2019 11:07 PM EDT Urine Bilirubin Dipstick Negative Negative 01/27/2019 11:07 PM EDT Urine Blood Dipstick Negative Negative 01/27/2019 11:07 PM EDT Urine 01/27/2019 6:39 PM EDT 01/27/2019 11:03 PM EDT [facility] Historical Provider URINE ORDERABLES Final Result [facility] [address] [phone] * OB URINE DRUG SCRN ([facility] BKR DATA CONV) (01/27/2019 6:39 PM EDT) UDS Amp Negative Negative 01/28/2019 12:45 AM EDT Comment: Cutoff 500 ng/ml Test is for screening purposes only. Clinical consideration and professional judgement should be applied to any gdwk-dl-mdldn test result, particularly when preliminary positive results [...] or drug use. UDS Lydia Negative Negative 01/28/2019 12:45 AM EDT Comment:Cutoff 200 ng/ml UDS Benzo Negative Negative 01/28/2019 12:45 AM EDT Comment:Cutoff 150 ng/ml UDS Wendy Negative 01/28/2019 12:45 AM EDT Comment:Cutoff 150 ng/ml UDS Meth Negative Negative 01/28/2019 12:45 AM EDT Comment:Cutoff 300 ng/ml UDS Opi Negative Negative 01/28/2019 12:45 AM EDT Comment:Cutoff 300ng/ml UDS Oxy Negative Negative 01/28/2019 12:45 AM EDT Comment:Cutoff 50 ng/ml UDS PCP Negative Negative 01/28/2019 12:45 AM EDT Comment:Cutoff 25 ng/ml UDS TCA Negative Negative 01/28/2019 12:45 AM EDT Comment:Cutoff 1000 ng/ml UDS THC Negative Negative 01/28/2019 12:45 AM EDT Comment:Cutoff 20 ng/ml Buprenorphine Screen, Urine Negative Negative 01/28/2019 12:45 AM EDT Comment:Cutoff 5 ng/ml Heroin Metab(6AM) by LC-MS/MS, Urine Negative Negative 01/28/2019 12:45 AM EDT Comment: Cutoff 10 ng/ml Screening only. Clinical consideration and professional judgement should be applied to any drug of abuse test result, particularly when preliminary positive results are used. Positive results should be confirmed if used for clinical or legal purposes. Propoxyphene, Urine Negative Negative 01/28/2019 12:45 AM EDT Comment:Cutoff 25 ng/ml UDS pH 7.1 01/28/2019 12:45 AM EDT [place], Urine 1.020 01/28/2019 12:45 AM EDT UDS Creatinine, Toxicology 163.8 mg/dL 01/28/2019 12:45 AM EDT Urine 01/27/2019 6:39 PM EDT 01/28/2019 12:25 AM EDT us [facility] Historical Provider URINE ORDERABLES Final Result [facility] [address] [phone] * (ABNORMAL) URINALYSIS MICROSCOPIC ([facility] BKR DATA CONV) (01/27/2019 6:39 PM EDT) Correlate UA Correlated Correlated 01/27/2019 11:21 PM EDT Ur RBC 0-2(A) None Seen /HPF 01/27/2019 11:21 PM EDT Ur WBC 5-10(A) None Seen /HPF 01/27/2019 11:21 PM EDT Ur Bacteria Trace(A) None Seen 01/27/2019 11:21 PM EDT Ur Epithelial Cells 20-50(A) None Seen /HPF 01/27/2019 11:21 PM EDT Ur Calcium Oxalate Crystals Trace(A) 01/27/2019 11:21 PM EDT Urine 01/27/2019 6:39 PM EDT 01/27/2019 11:03 PM EDT Narrative [facility] - 01/27/2019 11:21 PM EDT Added by Discern Expert [facility] Historical Provider URINE ORDERABLES Final Result [facility] [address] [phone] documented in this encounter Visit Diagnoses Not on filedocumented in this encounter
--- OUTSIDE RECORDS SUMMARY | 2024-06-26 16:10 | XMS_ITS | Encounter Summary ---
Author Organization [employer] Address [address] [place] [address] Care Team Providers Care Wood Floor Refinisher Name Role Phone Unavailable Primary Care Provider Unavailabl e Encounter Details Date Type Department Care Team (Late st Contact Info) Description 12/21/2018 Transcribed Document [facility] [place] [facility] [place] [address] ProviderVineet MD [facility] [place] [address] Social History Tobacco Use Types Packs/Day Years Used Date Smoking Tobacco: Never Assessed Comments Unknown Sex and Gender Information Value Date Recorded Sex Assigned at Not on file Legal Sex Female 3:37 PM CDT Gender Identity Not on file Sexual Orientation Not on file documented as of this encounter Miscellaneous Notes * Cerner Conversion Note - Vineet Fitzgerald MD - 12/21/2018 2:12 AM CDT [place] [phone] PAT MURPHY :1990 Visit Time:12/21/2018 Your Visit Summary Your Care Team Admitting Physician - LAUREN ESCOBAR MD-OBG Attending Physician - LAUREN ESCOBAR MD-OBG Primary Care Physician - KLEBER GREENE (REF), -[facility] Referring Physician - LAUREN ESCOBAR MD-OBG Your Diagnosis 23 weeks gestation of Adult BMI 40.0-44.9 kg/sq m Obesity complicating in second trimester Spotting complicating in second trimester Discharge Vitals Temperature 36.6 ??C Heart Rate 84 Respiratory Rate 16 Blood Pressure 117/60 What to do next Follow-Up Appointments Follow Up with LAUREN ESCOBAR When Within 3 to 5 days Comments Emergency Follow-up Care: Return to the [facility] Obstetrics Emergency Department (MELANIE) for any increase [...] patient or her family/partner/friends. Where: [address] [place] [address] Business (1) Medications What How Much When Instructions Next Dose amoxicillin-clavulanate (Augmentin 125 mg-31.25 mg/ 5 mL oral liquid) Oral Every 8 Hours insulin glargine (Lantus Solostar Pen 100 units/ mL subcutaneous solution) 34 Unit(s) SubCutaneous At Bedtime insulin lispro (HumaLOG KwikPen 100 units/ mL injectable solution) 14 Unit(s) SubCutaneous Before Meals levothyroxine Every Day Take your medications faithfully. Do NOT skip [...] This Visit No Immunizations Found Education Materials Second Trimester of The second trimester is from week 14 through week 27 (month 4 through 6). This is often the time in that you feel your best. Often times, morning sickness has lessened or quit. You may have more energy, and you may get hungry more often. Your unborn baby is growing rapidly. At the end of the sixth month, he or she is about 9 inches long and weighs about 1?? pounds. You will likely feel the baby move between 18 and 20 weeks of . Follow these instructions at home: Medicines ??? Take hytq-iyx-rmpcavo and prescription medicines only as told by [...] about taking a daily calcium supplement. ??? Avoid foods that are high in fat and sugars, such as fried and sweet foods. ??? If you feel sick to your stomach (nauseous) or throw up (vomit): ? Eat 4 or 5 small meals a day instead of 3 large meals. ? Try eating a few soda crackers. ? Drink liquids between meals instead of during meals. ??? To prevent constipation: ? Eat foods that are high in fiber, like fresh fruits and vegetables, whole grains, and beans. ? Drink enough fluids to keep your pee (urine) clear or pale yellow. Activity ??? Exercise only as told by your doctor. Stop exercising if you start to have cramps. ??? Do not exercise if it is too hot, too humid, or if you are in a place of great height (high altitude). ??? Avoid heavy lifting. ??? Wear low-heeled shoes. Sit and stand up straight. ??? You can continue to have sex unless your doctor tells you not to. Relieving pain and discomfort ??? Wear a good support bra if your breasts are tender. ??? Take warm water baths (sitz baths) to soothe pain or discomfort caused by hemorrhoids. Use hemorrhoid cream if your doctor approves. ??? Rest with your legs raised if you have leg cramps or low back pain. ??? If you develop puffy, bulging veins (varicose veins) in your legs: ? Wear support hose or compression stockings as told by your doctor. ? Raise (elevate) your feet for 15 minutes, 3???4 times a day. ? Limit salt in your food. care ??? Write down your questions. Take them to your visits. ??? Keep all your visits as told by your doctor. This is important. Safety ??? Wear your seat belt when driving. ??? Make a list of emergency phone numbers, including numbers for family, friends, the hospital, and police and fire departments. General instructions ??? Ask your doctor about the right foods to eat or for help finding a counselor, if you need these services. ??? Ask your doctor about local classes. Begin classes before month 6 of your . ??? Do not use hot tubs, steam rooms, or saunas. ??? Do not douche or use tampons or scented sanitary pads. ??? Do not cross your legs for long periods of time. ??? Visit your dentist if you have not done so. Use a soft toothbrush to brush your teeth. Floss gently. ??? Avoid all smoking, herbs, and alcohol. Avoid drugs that are not approved by your doctor. ??? Do not use any products that contain nicotine or tobacco, such as cigarettes and e-cigarettes. If you need help quitting, ask your doctor. ??? Avoid cat litter boxes and soil used by cats. These carry germs that can cause defects in the baby and can cause a loss of your baby (miscarriage) or stillbirth. Contact a doctor if: ??? You have mild cramps or pressure in your lower belly. ??? You have pain when you pee (urinate). ??? You have bad smelling fluid coming from your vagina. ??? You continue to feel sick to your stomach (nauseous), throw up (vomit), or have watery poop (diarrhea). ??? You have a nagging pain in your belly area. ??? You feel dizzy. Get help right away if: ??? You have a fever. ??? You are leaking fluid from your vagina. ??? You have spotting or bleeding from your vagina. ??? You have severe belly cramping or pain. ??? You lose or gain weight rapidly. ??? You have trouble catching your breath and have chest pain. ??? You notice sudden or extreme puffiness (swelling) of your face, hands, ankles, feet, or legs. ??? You have not felt the baby move in over an hour. ??? You have severe headaches that do not go away when you take medicine. ??? You have trouble seeing. Summary ??? The second trimester is from week 14 through week 27 (months 4 through 6). This is often the time in that you feel your best. ??? To take care of yourself and your unborn baby, you will need to eat healthy meals, take medicines only if your doctor tells you to do so, and do activities that are safe for you and your baby. ??? Call your doctor if you get sick or if you notice anything unusual about your . Also, call your doctor if you need help with the right food to eat, or if you want to know what activities are safe for you. This information is not intended to replace advice given to you by your health care provider. Make sure you discuss any questions you have with your health care provider. Document Released: 10/05/2010 Document Revised: 08/16/2017 Document Reviewed: 08/16/2017 [employer] Interactive Patient Education ?? 2019 [employer]. and Urinary Tract Infection What is a urinary tract infection? A urinary tract infection (UTI) is an infection of any part of the urinary tract. This includes the kidneys, the tubes that connect your kidneys to [...] likely to develop a UTI during because: ??? The physical and hormonal changes your body goes through can make it easier for bacteria to get into your urinary tract. ??? Your growing baby puts pressure on your uterus and can affect urine flow. Does a UTI place my baby at risk? An untreated UTI during could lead to a kidney infection, which can cause health problems that could affect your baby. Possible complications of an untreated UTI include: ??? Having your baby before 37 weeks of (premature). ??? Having a baby with a low weight. ??? Developing high blood pressure during (preeclampsia). What are the symptoms of a UTI? Symptoms of a UTI include: ??? Fever. ??? Frequent urination or passing small amounts of urine frequently. ??? Needing to urinate urgently. ??? Pain or a burning sensation with urination. ??? Urine that smells bad or unusual. ??? Cloudy urine. ??? Pain in the lower abdomen or back. ??? Trouble urinating. ??? Blood in the urine. ??? Vomiting or being less hungry than normal. ??? Diarrhea or abdominal pain. ??? Vaginal discharge. What are the treatment options for a UTI during ? Treatment for this condition may include: ??? Antibiotic medicines that are safe to take during . ??? Other medicines to treat less common causes of UTI. How can I prevent a UTI? To prevent a UTI: ??? Go to the bathroom as soon as you feel the need. ??? Always wipe from front to back. ??? Wash your genital area with soap and warm water daily. ??? Empty your bladder before and after sex. ??? Wear cotton underwear. ??? Limit your intake of high sugar foods or drinks, such as regular soda, juice, and sweets. ??? Drink 6???8 glasses of water daily. ??? Do not wear tight-fitting pants. ??? Do not douche or use deodorant sprays. ??? Do not drink alcohol, caffeine, or carbonated drinks. These can irritate the bladder. Contact a health care provider if: ??? Your symptoms do not improve or get worse. ??? You have a fever after two days of treatment. ??? You have a rash. ??? You have abnormal vaginal discharge. ??? You have back or side pain. ??? You have chills. ??? You have nausea and vomiting. Get help right away if: Seek immediate medical care if you are and: ??? You feel contractions in your uterus. ??? You have lower belly pain. ??? You have a gush of fluid from your vagina. ??? You have blood in your urine. ??? You are vomiting and cannot keep down any medicines or water. This information is not intended to replace advice given to you by your health care provider. Make sure you discuss any questions you have with your health care provider. Document Released: 11/05/2011 Document Revised: 06/24/2017 Document Reviewed: 05/31/2016 [employer] Interactive Patient Education ?? 2019 [employer]. Emergency Awareness and Preventative Care STROKE is [...] Assistance with quitting is available by contacting 9-320-PWTL-NOW. This is a free resource providing counseling, [...] and how to prevent infections, visit www.cdc.gov/sepsis. Patient Portal Reminder: Be sure to sign up for the [facility] patient portal, which gives you 14/02 access to your medical information ??? including these discharge instructions ??? using your computer, smartphone, or tablet. Just go to [facility] to get started. Questions? Call . Test Results Laboratory or Other Results This Visit (last charted value for your 12/21/2018 visit) Urinalysis 12/21/18 01:03:00 Ur RBC: 2-5 /HPF Urine Nitrite: Negative Urine Leukocyte Esterase: Large Ur Epithelial Cells: 5-10 /HPF Urine Appearance: Cloudy Urine Glucose Dipstick: Negative Urine Blood Dipstick: Large Urine Urobilinogen Dipstick: 0.2 EU/dL -- Normal range between ( 0.2 and 1.0 ) Urine Protein Dipstick: Negative Ur Bacteria: 1+ Ur Squamous Epithelial Cells: 5-10 /HPF Urine Color: Yellow Ur WBC: 10-20 /HPF Urine Ketones Dipstick: Negative Urine pH Dipstick: 6.5 -- Normal range between ( 6.0 and 8.0 ) Urine Bilirubin Dipstick: Negative Urine Specific [place]: 1.019 -- Normal range between ( 1.005 and 1.030 ) Urine Type.: U CleanCatch Toxicology 12/21/18 01:03:00 UDS Amp: Negative UDS Lydia: Negative UDS Benzo: Negative UDS Wendy: Negative UDS Meth: Negative UDS Opi: Negative UDS Oxy: Negative UDS PCP: Negative UDS TCA: Negative UDS THC: Negative Buprenorphine Screen, Urine: Negative Heroin Metab (6AM) by LC-MS/MS, Urine: Negative SpGravity, Urine: 1.016 Propoxyphene, Urine: Negative UDS pH: 7.0 UDS Creatinine, Toxicology: 129.3 mg/dL Patient Name:PAT MURPHY I have received and understand this information and was given the opportunity to ask questions. Patient/Garden Labourer Name: Patient/Garden Labourer Signature: Relationship to Patient: Clinician/Hospital Garden Labourer Signature: Date: documented in this encounter Plan of Treatment Not on file documented as of this encounter Visit Diagnoses Not on filedocumented in this encounter
--- OUTSIDE RECORDS SUMMARY | 2024-06-26 16:10 | XMS_ITS | Encounter Summary ---
Author Organization [employer] Address [address] [place] [address] Care Team Providers Care Biostatistics Manager Name Role Phone Unavailable Primary Care Provider Unavailabl e Encounter Details Date Type Department Care Team (Late st Contact Info) Description 01/14/2019 Transcribed Document [facility] [place] Family Medicine [address] [place] [address] ProviderVineet MD [facility] [place] [address] Social History Tobacco Use Types Packs/Day Years Used Date Smoking Tobacco: Never Assessed Comments Unknown Sex and Gender Information Value Date Recorded Sex Assigned at Not on file Legal Sex Female 3:37 PM CDT Gender Identity Not on file Sexual Orientation Not on file documented as of this encounter Miscellaneous Notes * Cerner Conversion Note - Vineet Fitzgerald MD - 01/14/2019 12:35 PM CDT [place] [phone] PAT MURPHY SERGIO :1990 Visit Time:01/14/2019 Your Visit Summary Your Care Team Admitting Physician - LAUREN ESCOBAR MD-OBG Attending Physician - LAUREN ESCOBAR MD-OBG Primary Care Physician - KLEBER GREENE (REF), -[facility] Referring Physician - LAUREN ESCOBAR MD-OBG Your Diagnosis Encounter for supervision of normal first , unspecified trimester, Encounter for supervision of normal first , unspecified trimester Discharge Vitals Temperature 36.9 ??C Heart Rate 78 Respiratory Rate 16 Blood Pressure 126/57 What to do next Instructions From Your Care Team Please notify MD if any: abdominal pain, contractions, bleeding, leaking of fluid, or decreased movement. Discharge Activity: Discharge Activity: Activity as tolerated Diet: Discharge Diet: Resume usual diet as tolerated Follow-Up Appointments Follow Up with LAUREN ESCOBAR MD When Where: [address] [place], [place] [id number]- Medications What How Much When Instructions Next [...] This Visit No Immunizations Found Education Materials Movement Counts Patient Name: Patient Due Date: [...] Interactive Patient Education ?? 2019 [employer]. Second Trimester of The second trimester is [...] these instructions at home: Medicines ??? Take eefg-rzy-nkhfmaf and prescription medicines only as told by [...] 10/05/2010 Document Revised: 08/16/2017 Document Reviewed: 08/16/2017 [employer] Interactive Patient Education ?? 2019 [employer]. Emergency Awareness and Preventative Care STROKE [...] Assistance with quitting is available by contacting 5-221-QJED-NOW. This is a free resource providing counseling, [...] Be sure to sign up for the [facility] patient portal, which gives you 14/02 access to your medical information ??? including these discharge instructions ??? using your computer, smartphone, or tablet. Just go to [employer] to get started. Questions? Call . Test Results Laboratory or Other Results This Visit (last charted value for your 01/14/2019 visit) Urinalysis 01/14/19 11:39:00 Urine Nitrite: Negative Urine Leukocyte Esterase: Small Urine Appearance: Clear Urine Glucose Dipstick: Negative Urine Blood Dipstick: Negative Urine Urobilinogen Dipstick: 0.2 EU/dL -- Normal range between ( 0.2 and 1.0 ) Urine Protein Dipstick: Negative Urine Color: Yellow Urine Ketones Dipstick: Negative Urine pH Dipstick: 6.5 -- Normal range between ( 6.0 and 8.0 ) Urine Bilirubin Dipstick: Negative Urine Specific [place]: 1.020 -- Normal range between ( 1.005 and 1.030 ) Urine Type.: U CleanCatch Patient Name:PAT MURPHY I have received and understand this information and was given the opportunity to ask questions. Patient/Washroom Cleaner Name: Patient/Washroom Cleaner Signature: Relationship to Patient: Clinician/Hospital Washroom Cleaner Signature: Date: documented in this encounter Plan of Treatment Not on file documented as of this encounter Visit Diagnoses Not on filedocumented in this encounter
--- OUTSIDE RECORDS SUMMARY | 2024-06-26 16:10 | XMS_ITS | Encounter Summary ---
Author Organization [employer] Address [address] [place] [address] Care Team Providers Care Director Peoplesoft Name Role Phone Unavailable Primary Care Provider Unavailabl e Encounter Details Date Type Department Care Team (Late st Contact Info) Description 02/08/2019 Transcribed Document [facility] [place] [facility] [place] [address] ProviderVineet MD [facility] [place] [address] Social History Tobacco Use Types Packs/Day Years Used Date Smoking Tobacco: Never Assessed Comments Unknown Sex and Gender Information Value Date Recorded Sex Assigned at Not on file Legal Sex Female 3:37 PM CDT Gender Identity Not on file Sexual Orientation Not on file documented as of this encounter Miscellaneous Notes * Cerner Conversion Note - Vineet Fitzgerald MD - 02/08/2019 2:10 PM CDT [place] [phone] PAT MURPHY SERGIO :1990 Visit Time:02/08/2019 Your Visit Summary Your Care Team Admitting Physician - LAUREN ESCOBAR MD-OBG Attending Physician - LAUREN ESCOBAR MD-OBG Primary Care Physician - KLEBER GREENE (REF), -[facility] Referring Physician - LAUREN ESCOBAR MD-OBG Your Diagnosis 30 weeks gestation of Decreased movement affecting management of in third trimester Obesity affecting in third trimester Discharge Vitals Temperature 36.7 ??C Respiratory Rate 18 Blood Pressure 116/55 What to do next Follow-Up Appointments Follow Up with Follow up with primary care provider When Within 2 to 3 days Medications What How Much When Instructions Next [...] these instructions at home: Medicines ??? Take xnmb-lgh-hwhsagx and prescription medicines only as told by [...] 10/05/2010 Document Revised: 08/16/2017 Document Reviewed: 08/16/2017 Author[employer] Interactive Patient Education ?? 2019 [employer]. Emergency Awareness and Preventative Care STROKE is [...] Assistance with quitting is available by contacting 6-032-JGAT-NOW. This is a free resource providing counseling, [...] This Visit (last charted value for your 02/08/2019 visit) No Laboratory or Other Results This Visit Patient Name:PAT MURPHY SERGIO I have received and understand this information and was given the opportunity to ask questions. Patient/Carpenters Supervisor Name: Patient/Carpenters Supervisor Signature: Relationship to Patient: Clinician/Hospital Carpenters Supervisor Signature: Date: documented in this encounter Plan of Treatment Not on file documented as of this encounter Visit Diagnoses Not on filedocumented in this encounter
--- OUTSIDE RECORDS SUMMARY | 2024-06-26 16:10 | XMS_ITS | Encounter Summary ---
Author Organization [employer] Address [address] [place] [address] Care Team Providers Care Criminal Justice Teacher Name Role Phone Unavailable Primary Care Provider Unavailabl e Encounter Details Date Type Department Care Team (Late st Contact Info) Description 11/02/2018 Transcribed Document [facility] [place] [facility] [place] [address] ProviderVineet MD [facility] [place] [address] Social History Tobacco Use Types Packs/Day Years Used Date Smoking Tobacco: Never Assessed Comments Unknown Sex and Gender Information Value Date Recorded Sex Assigned at Not on file Legal Sex Female 3:37 PM CDT Gender Identity Not on file Sexual Orientation Not on file documented as of this encounter Miscellaneous Notes * Cerner Conversion Note - Vineet Fitzgerald MD - 11/02/2018 8:47 PM CDT [place] [phone] PAT MURPHY SERGIO :1990 Visit Time:11/02/2018 Your Visit Summary Your Care Team Admitting Physician - LAUREN ESCOBAR MD-OBG Attending Physician - LAUREN ESCOBAR MD-OBG Primary Care Physician - TRINY ROPER DR Referring Physician - LAUREN ESCOBAR MD-OBG Your Diagnosis Abdominal obesity Abdominal pain affecting 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 Encounter for supervision of normal first , unspecified trimester, Encounter for supervision of normal first , unspecified trimester Discharge Vitals Temperature 36.6 ??C Respiratory Rate 14 Blood Pressure 114/50 What to do next Instructions From Your Care Team Discharge Activity: Discharge Activity: Activity as tolerated Diet: Discharge Diet: Resume usual diet as tolerated Follow-Up Appointments Follow Up with LAUREN ESCOBAR When Within 3 to 5 days Where: [address] [place] [address]- Business (1) Medications What How Much When Instructions Next Dose Unchanged insulin glargine (Lantus Solostar Pen 100 units/ mL subcutaneous solution) 34 Unit(s) SubCutaneous At Bedtime Unchanged insulin lispro (HumaLOG KwikPen 100 units/ mL injectable solution) 14 Unit(s) SubCutaneous Before Meals Take your medications faithfully. Do NOT skip [...] This Visit No Immunizations Found Education Materials Abdominal Pain During Belly (abdominal) pain is [...] 06/29/2010 Document Revised: 02/16/2017 Document Reviewed: 02/07/2014 [employer] Interactive Patient Education ?? 2017 [employer] Inc. Emergency Awareness and Preventative Care STROKE [...] Assistance with quitting is available by contacting -NOW. This is a free resource providing counseling, support, and referral. Or you may contact your personal physician. National Suicide Prevention Lifeline: The National [facility] is a national network of local crisis [...] Be sure to sign up for the [facility] patient portal, which gives you 14/02 access to your medical information ??? including these discharge instructions ??? using your computer, smartphone, or tablet. Just go to [employer] to get started. Questions? Call . Test Results Laboratory or Other Results This Visit (last charted value for your 11/02/2018 visit) Urinalysis 11/02/18 19:46:00 Ur RBC: None Seen Urine Nitrite: Negative Urine Leukocyte Esterase: Small Ur Epithelial Cells: 2-5 /HPF Urine Appearance: Clear Urine Glucose Dipstick: Negative Urine Blood Dipstick: Negative Urine Urobilinogen Dipstick: 0.2 EU/dL -- Normal range between ( 0.2 and 1.0 ) Ur Calcium Oxalate Crystals: Trace Urine Protein Dipstick: Negative Ur Bacteria: None Seen Urine Color: Yellow Ur WBC: 5-10 /HPF Urine Ketones Dipstick: Negative Urine pH Dipstick: 6.0 -- Normal range between ( 6.0 and 8.0 ) Urine Bilirubin Dipstick: Negative Urine Specific [place]: 1.011 -- Normal range between ( 1.005 and 1.030 ) Urine Type.: U CleanCatch Toxicology 11/02/18 19:46:00 UDS Amp: Negative UDS Lydia: Negative UDS Benzo: Negative UDS Wendy: Negative UDS Meth: Negative UDS Opi: Negative UDS Oxy: Negative UDS PCP: Negative UDS TCA: Negative UDS THC: Negative Buprenorphine Screen, Urine: Negative Heroin Metab (6AM) by LC-MS/MS, Urine: Negative SpGravity, Urine: 1.014 Propoxyphene, Urine: Negative UDS pH: 6.7 UDS Creatinine, Toxicology: 111.2 mg/dL Patient Name:PAT MURPHY I have received and understand this information and was given the opportunity to ask questions. Patient/Straddle Bug Name: Patient/Straddle Bug Signature: Relationship to Patient: Clinician/Hospital Straddle Bug Signature: Date: documented in this encounter Plan of Treatment Not on file documented as of this encounter Visit Diagnoses Not on filedocumented in this encounter
--- OUTSIDE RECORDS SUMMARY | 2024-06-26 16:10 | XMS_ITS | Encounter Summary ---
Author Organization [employer] Address [address] [place] [address] Care Team Providers Care Sales Operations Director Name Role Phone Unavailable Primary Care Provider Unavailabl e Encounter Details Date Type Department Care Team (Late st Contact Info) Description 12/21/2018 Transcribed Document [facility] [place] [facility] [place] [address] ProviderVineet MD [facility] [place] [address] Social History Tobacco Use Types Packs/Day Years Used Date Smoking Tobacco: Never Assessed Comments Unknown Sex and Gender Information Value Date Recorded Sex Assigned at Not on file Legal Sex Female 3:37 PM CDT Gender Identity Not on file Sexual Orientation Not on file documented as of this encounter Miscellaneous Notes * Cerner Conversion Note - Vineet ProviderMD - 12/21/2018 12:29 AM CDT Admission Data, OB Entered On: 12/21/2018 0:31 EDT Performed On: 12/21/2018 0:29 EDT by Aline Gates RN Advance Directive Patient has Advance Directive *Q : No, patient refuses Advance Directive information Aline Gates RN - 12/21/2018 0:29 EDT Height and Weight Height Source : Chart Height Entry Format : [place] Height, Feet : 5 ft(Converted to: 152 cm, 60 Inch) Clinical Height : 172.72 cm Height, Inches : 8 Inch(Converted to: 0 ft 8 Inch, 20.32 cm) Weight Source : Standing scale Weight Entry Format : [place] Weight, Pounds : 280 lb Clinical Dosing Weight : 127.27 kg Body Surface Area (BSA) : 2.36 m2 Body Mass Index : 42.7 kg/m2 (>HHI) [place] Body Weight (IBW) : 63.45 kg Aline Gates RN - 12/21/2018 0:29 EDT Health Histories Smoking Status : Never (less than 100 in lifetime; none in last 30 days) Smokeless Tobacco Status : Never Aline Gates RN - 12/21/2018 0:29 EDT Social History (As Of: 12/21/2018 00:31:16 EDT) Gestational Age Gestational Age Person Gestational Age At : 164days Method : Comment : Tetanus Immunization Status Previous Tetanus Immunizations : No qualifying data available. Tetanus Immunization : Less than 5 years Aline Gates RN - 12/21/2018 0:29 EDT Influenza Vaccine Asmt, Adult Previous Vaccines from Immunization Schedule : No qualifying data available. Influenza Immunization, Current Season : Outside of influenza season Aline Gates RN - 12/21/2018 0:29 EDT Pneumococcal Vaccine Previous Vaccines from Immunization Schedule : No qualifying data available. Pneumonia Immunization Received : No Pneumococcal Risk Assessment < Age 65 : None Aline Gates RN - 12/21/2018 0:29 EDT Order Details Transport Mode Order Detail : Ambulatory Isolation Precautions Order Detail : Standard Precautions Order Detail : 1 IV Order Detail : 0 Oxygen Order Detail : 0 Nurse Collect Order Detail : 1 Lift/Transfer : Independent Central Line Order Detail : No Room Service : Appropriate Arterial Line : No Aline Gates RN - 12/21/2018 0:29 EDT Vital Measurements Temperature Source : Oral Temperature Mode : Fahrenheit Temperature, Fahrenheit : 97.8 Deg F Clinical Temperature, C : 36.6 Deg C Pulse Method : Non-Invasive BP Device Pulse Source : Brachial, Right Heart Rate, Apical : 84 bpm Pulse Rhythm : Regular Respiratory Rate : 16 Breaths/Min Blood Pressure Location : Arm, right upper Blood Pressure Source : Non-Invasive BP Device Blood Pressure Position : Sitting Systolic Blood Pressure : 117 mmHg Diastolic Blood Pressure : 60 mmHg Aline Gates RN - 12/21/2018 0:29 EDT Infectious Disease History Infectious Disease History : Chicken pox/Shingles Fever/Chills Last 48 Hours : No Travel To Regions with Travel Advisories : No Travel Outside [place] Within Last 30 Days : No Contact With Traveler to Advisory Region : No Tuberculosis Symptoms : None Aline Gates RN - 12/21/2018 0:29 EDT documented in this encounter Plan of Treatment Not on file documented as of this encounter Visit Diagnoses Not on filedocumented in this encounter
--- OUTSIDE RECORDS SUMMARY | 2024-06-26 16:10 | XMS_ITS | Encounter Summary ---
Author Organization [employer] Address [address] [place] [address] Care Team Providers Care Toll Gate Keeper Name Role Phone Unavailable Primary Care Provider Unavailabl e Encounter Details Date Type Department Care Team (Late st Contact Info) Description 03/13/2019 Transcribed Document [facility] [place] Family Medicine [facility] [place] [address] ProviderVineet MD [facility] [place] [address] Social History Tobacco Use Types Packs/Day Years Used Date Smoking Tobacco: Never Assessed Comments Unknown Sex and Gender Information Value Date Recorded Sex Assigned at Not on file Legal Sex Female 3:37 PM CDT Gender Identity Not on file Sexual Orientation Not on file documented as of this encounter Miscellaneous Notes * Cerner Conversion Note - Vineet Fitzgerald MD - 03/13/2019 2:50 PM CDT [place] [id number] PAT MURPHY SERGIO :1990 Visit Time:03/13/2019 Your Visit Summary Your Care Team Admitting Physician - LAUREN ESCOBAR MD-OBG Attending Physician - LAUREN ESCOBAR MD-OBG Primary Care Physician - KLEBER GREENE (REF), BRANDT Referring Physician - LAUREN ESCOBAR MD-OBG Your Diagnosis Encounter for supervision of normal first , unspecified trimester, Encounter for supervision of normal first , unspecified trimester Discharge Vitals Temperature 37.1 ??C Heart Rate 88 Respiratory Rate 18 Blood Pressure 97/50 What to do next Instructions From Your Care Team Discharge Activity: Discharge Activity: Activity as tolerated Diet: Discharge Diet: Resume usual diet as tolerated Follow-Up Appointments Follow Up with Cha Osorio, [employer] When Within 2 to 3 days Where: [address] [place] [address]- Medications What How Much When Instructions Next Dose insulin glargine (Lantus Solostar Pen 100 units/ mL subcutaneous solution) 66 Unit(s) SubCutaneous At Bedtime insulin lispro (HumaLOG KwikPen 100 units/ mL injectable solution) 24 Unit(s) SubCutaneous Before Breakfast insulin lispro (HumaLOG KwikPen) 18 Unit(s) SubCutaneous Before Lunch insulin lispro (HumaLOG KwikPen) 20 Unit(s) SubCutaneous Before Dinner levothyroxine 50 Microgram(s) Every Day multivitamin, ( [...] This Visit No Immunizations Found Education Materials Gestational Diabetes Mellitus, Diagnosis Gestational diabetes (gestational diabetes mellitus) is a temporary form of diabetes that some women develop during . It usually occurs around weeks 24???28 of and goes away after delivery. Hormonal changes during can interfere with insulin production and function, which may result in one or both of these problems: ??? The pancreas does not make enough of a hormone called insulin. ??? Cells in the body do not respond properly to insulin that the body makes (insulin resistance). Normally, insulin allows sugars (glucose) to enter cells in the body. The cells use glucose for energy. Insulin resistance or lack of insulin causes excess glucose to build up in the blood instead of going into cells. As a result, high blood glucose (hyperglycemia) develops. What are the risks? If gestational diabetes is treated, it is unlikely to cause problems. If it is not controlled with treatment, it may cause problems during labor and delivery, and some of those problems can be harmful to the unborn baby (fetus) and the mother. Uncontrolled gestational diabetes may also cause the baby to have breathing problems and low blood glucose. Women who get gestational diabetes are more likely to develop it if they get again, and they are more likely to develop type 2 diabetes in the future. What increases the risk? This condition may be more likely to develop in women who: ??? Are older than age 25 during . ??? Have a family history of diabetes. ??? Are overweight. ??? Had gestational diabetes in the past. ??? Have polycystic ovarian syndrome (PCOS). ??? Are with twins or multiples. ??? Are of Nigerien-, -Nigerien, /, or / descent. What are the signs or symptoms? Most women do not notice symptoms of gestational diabetes because the symptoms are similar to normal symptoms of . Symptoms of gestational diabetes may include: ??? Increased thirst (polydipsia). ??? Increased hunger (polyphagia). ??? Increased urination (polyuria). How is this diagnosed? This condition may be diagnosed based on your blood glucose level, which may be checked with one or more of the following blood tests: ??? A fasting blood glucose (FBG) test. You will not be allowed to eat (you will fast) for at least 8 hours before a blood sample is taken. ??? A random blood glucose test. This checks your blood glucose at any time of day regardless of when you ate. ??? An oral glucose tolerance test (OGTT). This is usually done during weeks 24???28 of . ? For this test, you will have an FBG test done. Then, you will drink a beverage that contains glucose. Your blood glucose will be tested again 1 hour after drinking the glucose beverage (1-hour OGTT). ? If the 1-hour OGTT result is at or above 140 mg/dL (7.8 mmol/L), you will repeat the OGTT. This time, your blood glucose will be tested 3 hours after drinking the glucose beverage (3-hour OGTT). If you have risk factors, you may be screened for undiagnosed type 2 diabetes at your first health care visit during your ( visit). How is this treated? Your treatment may be managed by a specialist called an technical clerk. This condition is treated by following instructions from your health care provider about: ??? Eating a healthier diet and getting more physical activity. These changes are the most important ways to manage gestational diabetes. ??? Checking your blood glucose. Do this as often as told. ??? Taking diabetes medicines or insulin every day. These will only be prescribed if they are needed. ? If you use insulin, you may need to adjust your dosage based on how physically active you are and what foods you eat. Your health care provider will tell you how to do this. Your health care provider will set treatment goals for you based on the stage of your and any other medical conditions you have. Generally, the goal of treatment is to maintain the following blood glucose levels during : ??? Fasting: at or below 95 mg/dL (5.3 mmol/L). ??? After meals (postprandial): ? One hour after a meal: at or below 140 mg/dL (7.8 mmol/L). ? Two hours after a meal: at or below 120 mg/dL (6.7 mmol/L). ??? A1c (hemoglobin A1c) level: 6???6.5%. Follow these instructions at home: ??? Take oftz-cly-qsdfpys and prescription medicines only as told by your health care provider. ??? Manage your weight gain during . The amount of weight that you are expected to gain depends on your pre- BMI (body mass index). ??? Keep all follow-up visits as told by your health care provider. This is important. Consider asking your health care provider these questions: ??? Do I need to meet with a certified adapted physical educator? Where can I find a support group for people with diabetes? What equipment will I need to manage my diabetes at home? What diabetes medicines do I need, and when should I take them? How often do I need to check my blood glucose? What number can I call if I have questions? When is my next appointment? Where to find more information: ??? For more information about diabetes, visit: ? [place] Diabetes Association (ADA): www.diabetes.org ? [place] Association of Diabetes Educators (AADE): www.diabeteseducator.org/patient-resources Contact a health care provider if: ??? Your blood glucose level is at or above 240 mg/dL (13.3 mmol/L). ??? Your blood glucose level is at or above 200 mg/dL (11.1 mmol/L) and you have ketones in your urine. ??? You have been sick or have had a fever for 2 days or more and you are not getting better. ??? You have any of the following problems for more than 6 hours: ? You cannot eat or drink. ? You have nausea and vomiting. ? You have diarrhea. Get help right away if: ??? Your blood glucose is below 54 mg/dL (3 mmol/L). ??? You become confused or you have trouble thinking clearly. ??? You have difficulty breathing. ??? You have moderate or large ketone levels in your urine. ??? Your baby is moving around less than usual. ??? You develop unusual discharge or bleeding from your vagina. ??? You start having contractions early (prematurely). Contractions may feel like a tightening in your lower abdomen. This information is not intended to replace advice given to you by your health care provider. Make sure you discuss any questions you have with your health care provider. Document Released: 10/17/2001 Document Revised: 12/16/2016 Document Reviewed: 08/13/2016 Else[employer] Ratings Interactive Patient Education ?? 2018 [employer] Blood Glucose Monitoring, Adult Monitoring your blood sugar (glucose) helps you manage your diabetes. It also helps you and your health care provider determine how well your diabetes management plan is working. Blood glucose monitoring involves checking your blood glucose as often as directed, and keeping a record (log) of your results over time. Why should I monitor my blood glucose? Checking your blood glucose regularly can: ??? Help you understand how food, exercise, illnesses, and medicines affect your blood glucose. ??? Let you know what your blood glucose is at any time. You can quickly tell if you are having low blood glucose (hypoglycemia) or high blood glucose (hyperglycemia). ??? Help you and your health care provider adjust your medicines as needed. When should I check my blood glucose? Follow instructions from your health care provider about how often to check your blood glucose. This may depend on: ??? The type of diabetes you have. ??? How well-controlled your diabetes is. ??? Medicines you are taking. If you have type 1 diabetes: ??? Check your blood glucose at least 2 times a day. ??? Also check your blood glucose: ? Before every insulin injection. ? Before and after exercise. ? Between meals. ? 2 hours after a meal. ? Occasionally between 2:00 a.m. and 3:00 a.m., as directed. ? Before potentially dangerous tasks, like driving or using heavy machinery. ? At bedtime. ??? You may need to check your blood glucose more often, up to 6???10 times a day: ? If you use an insulin pump. ? If you need multiple daily injections (MDI). ? If your diabetes is not well-controlled. ? If you are ill. ? If you have a history of severe hypoglycemia. ? If you have a history of not knowing when your blood glucose is getting low (hypoglycemia unawareness). If you have type 2 diabetes: ??? If you take insulin or other diabetes medicines, check your blood glucose at least 2 times a day. ??? If you are on intensive insulin therapy, check your blood glucose at least 4 times a day. Occasionally, you may also need to check between 2:00 a.m. and 3:00 a.m., as directed. ??? Also check your blood glucose: ? Before and after exercise. ? Before potentially dangerous tasks, like driving or using heavy machinery. ??? You may need to check your blood glucose more often if: ? Your medicine is being adjusted. ? Your diabetes is not well-controlled. ? You are ill. What is a blood glucose log? A blood glucose log is a record of your blood glucose readings. It helps you and your health care provider: ? Look for patterns in your blood glucose over time. ? Adjust your diabetes management plan as needed. ??? Every time you check your blood glucose, write down your result and notes about things that may be affecting your blood glucose, such as your diet and exercise for the day. ??? Most glucose meters store a record of glucose readings in the meter. Some meters allow you to download your records to a computer. How do I check my blood glucose? Follow these steps to get accurate readings of your blood glucose: Supplies needed ??? Blood glucose meter. ??? Test strips for your meter. Each meter has its own strips. You must use the strips that come with your meter. ??? A needle to prick your finger (lancet). Do not use lancets more than once. ??? A device that holds the lancet (lancing device). ??? A journal or log book to write down your results. Procedure ??? Wash your hands with soap and water. ??? Prick the side of your finger (not the tip) with the lancet. Use a different finger each time. ??? Gently rub the finger until a small drop of blood appears. ??? Follow instructions that come with your meter for inserting the test strip, applying blood to the strip, and using your blood glucose meter. ??? Write down your result and any notes. Alternative testing sites ??? Some meters allow you to use areas of your body other than your finger (alternative sites) to test your blood. ??? If you think you may have hypoglycemia, or if you have hypoglycemia unawareness, do not use alternative sites. Use your finger instead. ??? Alternative sites may not be as accurate as the fingers, because blood flow is slower in these areas. This means that the result you get may be delayed, and it may be different from the result that you would get from your finger. ??? The most common alternative sites are: ? Forearm. ? Thigh. ? Palm of the hand. Additional tips ??? Always keep your supplies with you. ??? If you have questions or need help, all blood glucose meters have a 24-hour ???hotline?? number that you can call. You may also contact your health care provider. ??? After you use a few boxes of test strips, adjust (calibrate) your blood glucose meter by following instructions that came with your meter. This information is not intended to replace advice given to you by your health care provider. Make sure you discuss any questions you have with your health care provider. Document Released: 07/13/2004 Document Revised: 01/28/2017 Document Reviewed: 12/20/2016 Elsev2 Ratings Interactive Patient Education ?? 2017 [employer] Movement Counts Patient Name: Patient Due [...] 08/10/2007 Document Revised: 03/09/2017 Document Reviewed: 08/19/2016 [employer] Interactive Patient Education ?? 2019 [employer] Emergency Awareness and Preventative Care STROKE [...] Assistance with quitting is available by contacting 3-471-ZZBM-NOW. This is a free resource providing counseling, [...] This Visit (last charted value for your 03/13/2019 visit) General Chemistry 03/13/19 11:54:00 Glucose POC2: 103 mg/dL -- Normal range between ( 70 and 110 ) Toxicology 03/13/19 11:47:00 UDS Amp: Negative UDS Lydia: Negative UDS Benzo: Negative UDS Wendy: Negative UDS Meth: Negative UDS Opi: Negative UDS Oxy: Negative UDS PCP: Negative UDS TCA: Negative UDS THC: Negative Buprenorphine Screen, Urine: Negative Heroin Metab (6AM) by LC-MS/MS, Urine: Negative SpGravity, Urine: 1.010 Propoxyphene, Urine: Negative UDS pH: 9.0 UDS Creatinine, Toxicology: 110.1 mg/dL Patient Name:PAT MURPHY I have received and understand this information and was given the opportunity to ask questions. Patient/Transcribing Operators Supervisor Name: Patient/Transcribing Operators Supervisor Signature: Relationship to Patient: Clinician/Hospital Transcribing Operators Supervisor Signature: Date: Electronically signed by Vladimir, Shereen Conversion Senior Publications Specialist Cerner at 11/12/2022 2:50 PM CDT documented in this encounter Plan of Treatment Not on file documented as of this encounter Visit Diagnoses Not on filedocumented in this encounter
--- OUTSIDE RECORDS SUMMARY | 2024-06-26 16:10 | XMS_ITS | Encounter Summary ---
Author Organization [employer] Address [address] [place] [address] Care Team Providers Care Strickler Attendant Name Role Phone Unavailable Primary Care Provider Unavailabl e Encounter Details Date Type Department Care Team (Late st Contact Info) Description 03/13/2019 Historic Encounter [facility] [address] [place] [address] Provider, [facility] Historical Social History Tobacco Use Types [...] Priority Date/Time Associated Diagnosis Comments GLUCOSE-POC Routine 03/13/2019 11:54 AM EDT OB URINE DRUG SCRN ([facility] BKR DATA CONV) Routine 03/13/2019 11:47 AM EDT documented in this encounter Results * Glucose, Point of Care (03/13/2019 11:54 AM EDT) Glucose POC2 103 70 - 110 mg/dL 03/13/2019 3:54 PM EDT [facility] L D Rn [id number] 03/13/2019 3:54 PM EDT [facility] Device SN [id number] 03/13/2019 3:54 PM EDT [facility] Blood 03/13/2019 11:5 4 AM EDT 03/13/2019 4:01 PM EDT [facility] Historical Provider POINT OF CARE TEST ORDE MISAEL Final Result [facility] [address] [phone] * OB URINE DRUG SCRN ([facility] BKR DATA CONV) (03/13/2019 11:47 AM EDT) UDS Amp Negative Negative 03/13/2019 4:52 PM EDT Comment: Cutoff 500 ng/ml Test is for screening purposes only. Clinical consideration and professional judgement should be applied to any cpuf-cq-zpxqs test result, particularly when preliminary positive results [...] or drug use. UDS Lydia Negative Negative 03/13/2019 4:52 PM EDT Comment:Cutoff 200 ng/ml UDS Benzo Negative Negative 03/13/2019 4:52 PM EDT Comment:Cutoff 150 ng/ml UDS Wendy Negative 03/13/2019 4:52 PM EDT Comment:Cutoff 150 ng/ml UDS Meth Negative Negative 03/13/2019 4:52 PM EDT Comment:Cutoff 300 ng/ml UDS Opi Negative Negative 03/13/2019 4:52 PM EDT Comment:Cutoff 300ng/ml UDS Oxy Negative Negative 03/13/2019 4:52 PM EDT Comment:Cutoff 50 ng/ml UDS PCP Negative Negative 03/13/2019 4:52 PM EDT Comment:Cutoff 25 ng/ml UDS TCA Negative Negative 03/13/2019 4:52 PM EDT Comment:Cutoff 1000 ng/ml UDS THC Negative Negative 03/13/2019 4:52 PM EDT Comment:Cutoff 20 ng/ml Buprenorphine Screen, Urine Negative Negative 03/13/2019 4:52 PM EDT Comment:Cutoff 5 ng/ml Heroin Metab(6AM) by LC-MS/MS, Urine Negative Negative 03/13/2019 4:52 PM EDT Comment: Cutoff 10 ng/ml Screening only. Clinical consideration and professional judgement should be applied to any drug of abuse test result, particularly when preliminary positive results are used. Positive results should be confirmed if used for clinical or legal purposes. Propoxyphene, Urine Negative Negative 03/13/2019 4:52 PM EDT Comment:Cutoff 25 ng/ml UDS pH 9.0 03/13/2019 4:52 PM EDT [place]. [place], Urine 1.010 03/13/2019 4:52 PM EDT UDS Creatinine, Toxicology 110.1 mg/dL 03/13/2019 4:52 PM EDT Urine 03/13/2019 11:4 7 AM EDT 03/13/2019 3:54 PM EDT [facility] Historical Provider URINE ORDERABLES Final Result [facility] [address] [phone] documented in this encounter Visit Diagnoses Not on filedocumented in this encounter
--- OUTSIDE RECORDS SUMMARY | 2024-06-26 16:10 | XMS_ITS | Encounter Summary ---
Author Organization [employer] Address [address] [place] [id number] Care Team Providers Care Torch Heater Name Role Phone Unavailable Primary Care Provider Unavailabl e Encounter Details Date Type Department Care Team (Late st Contact Info) Description 03/13/2019 Transcribed Document [facility] Family Medicine [place] [address] ProviderVineet MD [address] [place] [address] Social History Tobacco Use Types [...] Fitzgerald MD - 03/13/2019 2:50 PM CDT Patient Education Materials Follows: Gestational Diabetes Mellitus, Diagnosis Gestational diabetes (gestational diabetes mellitus) is a temporary form of diabetes that some women develop during . It usually occurs around weeks 24?28 of and goes away after delivery. Hormonal [...] with twins or multiples. ??? Are of [place]ad[place]-, -Salvadorean, /, or / descent. What are the signs or symptoms? Most women do not notice symptoms of gestational diabetes because the symptoms are similar to normal symptoms of . Symptoms of gestational diabetes may include: ??? Increased thirst (polydipsia). ??? Increased hunger?(polyphagia). ??? Increased urination (polyuria). How is this [...] (OGTT). This is usually done during weeks 24?28 of . ? For this test, you [...] be managed by a specialist called an glass sander. This condition is treated by following instructions [...] level: 6?6.5%. Follow these instructions at home: ??? Take cmht-vbm-tbogcev and prescription medicines only as told by [...] Do I need to meet with a tobacco educator? Where can I find a support [...] For more information about diabetes, visit: ? [place] Diabetes Association (ADA): www.diabetes.org ? [place] Association of Diabetes Educators (AADE): www.diabeteseducator.org/patient-resources Contact [...] 10/17/2001 Document Revised: 12/16/2016 Document Reviewed: 08/13/2016 [employer] Interactive Patient Education ? 2018 [employer] Blood Glucose Monitoring, Adult Monitoring your [...] your blood glucose more often, up to 6?10 times a day: ? If you use [...] all blood glucose meters have a 24-hour ?hotline? number that you can call. You may [...] 07/13/2004 Document Revised: 01/28/2017 Document Reviewed: 12/20/2016 Elsevier Interactive Patient Education ? 2017 Elsevier Inc. Movement Counts Patient Name: Patient [...] 08/19/2016 Elsevier Interactive Patient Education ? 2019 Elsevier Inc. documented in this encounter Plan of Treatment Not on file documented as of this encounter Visit Diagnoses Not on filedocumented in this encounter
--- OUTSIDE RECORDS SUMMARY | 2024-06-26 16:10 | XMS_ITS | Encounter Summary ---
Author Organization [employer] Address [address] [place] [address] Care Team Providers Care Records Clerk Name Role Phone Unavailable Primary Care Provider Unavailabl e Encounter Details Date Type Department Care Team (Late st Contact Info) Description 03/13/2019 Transcribed Document [facility] [address] [place] [address] ProviderVineet MD [facility] [place], [place] [id number] Social History Tobacco Use Types Packs/Day Years Used Date Smoking Tobacco: Never Assessed Comments Unknown Sex and Gender Information Value Date Recorded Sex Assigned at Not on file Legal Sex Female 3:37 PM CDT Gender Identity Not on file Sexual Orientation Not on file documented as of this encounter Miscellaneous Notes * Cerner Conversion Note - Vineet ProviderMD - 03/13/2019 1:52 PM CDT Nursing Discharge Summary Entered On: 03/13/2019 13:53 EDT Performed On: 03/13/2019 13:52 EDT by LIZ OG protective services officer Documentation Patient Disposition, General : Discharge Discharge To : Home with ambulatory/outpatient follow-up Mode Of Departure, General Discharge : Private vehicle Accompanied By, Discharge : Unaccompanied IV Discontinued : Not applicable Medications Given to Patient : No Personal Belongings With Patient : Yes Prescriptions Given to Patient : No Discharge Instructions Reviewed With, Opportunity For Questions Given : Patient Patient Education Completed : Yes Teaching Method : Explanation Teaching Evaluation : Verbalizes understanding LIZ OG RN - 03/13/2019 13:52 EDT documented in this encounter Plan of Treatment Not on file documented as of this encounter Visit Diagnoses Not on filedocumented in this encounter
--- OUTSIDE RECORDS SUMMARY | 2024-06-26 16:10 | XMS_ITS | Encounter Summary ---
Author Organization [employer] Address [address] [place] [address] Care Team Providers Care Web Application Tester Name Role Phone Unavailable Primary Care Provider Unavailabl e Encounter Details Date Type Department Care Team (Late st Contact Info) Description 11/02/2018 Historic Encounter [facility] [address] [place] [address] ProviderLeanne Historical Social History Tobacco [...] Associated Diagnosis Comments OB URINE DRUG SCRN ([facility] DATA CONV) Routine 11/02/2018 7:46 PM EDT URINALYSIS UA RFLX MICROSCOPIC CULT IF IND ([facility] DATA CONV) Routine 11/02/2018 7:46 PM EDT URINALYSIS MICROSCOPIC ([facility] DATA CONV) Routine 11/02/2018 7:46 PM EDT URINE CULTURE AND SENSITIVITY Routine 11/02/2018 7:46 PM EDT documented in this encounter Results * OB URINE DRUG SCRN ([facility] DATA CONV) (11/02/2018 7:46 PM EDT) UDS Amp Negative Negative 11/03/2018 12:16 AM EDT Comment: Cutoff 500 ng/ml Test is for screening purposes only. Clinical consideration and professional judgement should be applied to any diwx-sd-uzkhp test result, particularly when preliminary positive results [...] or drug use. UDS Lydia Negative Negative 11/03/2018 12:16 AM EDT Comment:Cutoff 200 ng/ml UDS Benzo Negative Negative 11/03/2018 12:16 AM EDT Comment:Cutoff 150 ng/ml UDS Wendy Negative 11/03/2018 12:16 AM EDT Comment:Cutoff 150 ng/ml UDS Meth Negative Negative 11/03/2018 12:16 AM EDT Comment:Cutoff 300 ng/ml UDS Opi Negative Negative 11/03/2018 12:16 AM EDT Comment:Cutoff 300ng/ml UDS Oxy Negative Negative 11/03/2018 12:16 AM EDT Comment:Cutoff 50 ng/ml UDS PCP Negative Negative 11/03/2018 12:16 AM EDT Comment:Cutoff 25 ng/ml UDS TCA Negative Negative 11/03/2018 12:16 AM EDT Comment:Cutoff 1000 ng/ml UDS THC Negative Negative 11/03/2018 12:16 AM EDT Comment:Cutoff 20 ng/ml Buprenorphine Screen, Urine Negative Negative 11/03/2018 12:16 AM EDT Comment:Cutoff 5 ng/ml Heroin Metab(6AM) by LC-MS/MS, Urine Negative Negative 11/03/2018 12:16 AM EDT Comment: Cutoff 10 ng/ml Screening only. Clinical consideration and professional judgement should be applied to any drug of abuse test result, particularly when preliminary positive results are used. Positive results should be confirmed if used for clinical or legal purposes. Propoxyphene, Urine Negative Negative 11/03/2018 12:16 AM EDT Comment:Cutoff 25 ng/ml UDS pH 6.7 11/03/2018 12:16 AM EDT Sp. [place], Urine 1.014 11/03/2018 12:16 AM EDT UDS Creatinine, Toxicology 111.2 mg/dL 11/03/2018 12:16 AM EDT Urine 11/02/2018 7:46 PM EDT 11/02/2018 11:51 PM EDT [facility] Provider URINE ORDERABLES Final Result Performing Organization Address City/[facility]/ZIP Co de Phone Number [facility] [address] [phone] * (ABNORMAL) URINALYSIS MICROSCOPIC ([facility] DATA CONV) (11/02/2018 7:46 PM EDT) Correlate UA Correlated Correlated 11/03/2018 12:21 AM EDT Ur RBC None Seen None Seen 11/03/2018 12:21 AM EDT Ur WBC 5-10(A) None Seen /HPF 11/03/2018 12:21 AM EDT Ur Bacteria None Seen None Seen 11/03/2018 12:21 AM EDT Ur Epithelial Cells 2-5(A) None Seen /HPF 11/03/2018 12:21 AM EDT Ur Calcium Oxalate Crystals Trace(A) 11/03/2018 12:21 AM EDT 11/02/2018 7:46 PM EDT 11/02/2018 11:51 PM EDT Narrative [facility] - 11/03/2018 12:21 AM EDT Added by Discern Expert [facility] Provider URINE ORDERABLES Final Result Performing Organization Address [facility] Co de Phone Number [facility] [address] [phone] * (ABNORMAL) URINALYSIS UA RFLX MICROSCOPIC CULT IF IND ([facility] DATA CONV) (11/02/2018 7:46 PM EDT) Urine Type. U CleanCatch 11/02/2018 11:51 PM EDT Urine Color Yellow 11/02/2018 11:56 PM EDT Comment: Substances that cause HIGHLY abnormal urine color may affect the accuracy of URINE CHEMISTRY reagent strip results due to colorimetric interference. ??These include visible levels of blood or bilirubin, drugs containing dyes, and some antibiotics such as nitrofurantoin and riboflavin which can cause markedly abnormal urine coloration. Urine Appearance Clear 11/02/2018 11:56 PM EDT Urine Specific [place] 1.011 1.005 - 1.030 11/02/2018 11:56 PM EDT Urine pH Dipstick 6.0 6.0 - 8.0 11/02/2018 11:56 PM EDT Urine Leukocyte Esterase Small(A) Negative 11/02/2018 11:56 PM EDT Urine Nitrite Negative Negative 11/02/2018 11:56 PM EDT Urine Protein Dipstick Negative Negative 11/02/2018 11:56 PM EDT Urine Glucose Dipstick Negative Negative 11/02/2018 11:56 PM EDT Urine Ketones Dipstick Negative Negative 11/02/2018 11:56 PM EDT Urine Urobilinogen Dipstick 0.2 0.2 - 1.0 EU/dL 11/02/2018 11:56 PM EDT Urine Bilirubin Dipstick Negative Negative 11/02/2018 11:56 PM EDT Urine Blood Dipstick Negative Negative 11/02/2018 11:56 PM EDT 11/02/2018 7:46 PM EDT 11/02/2018 11:51 PM EDT [facility] Historical Provider URINE ORDERABLES Final Result [facility] [address] [phone] * URINE CULTURE AND SENSITIVITY (11/02/2018 7:46 PM EDT) Final 10,000-100,000 cfu/ml Recollect Specimen - 3 or more organisms suggests contamination Pre 10,000-100,000 cfu/ml Recollect Specimen - 3 or more organisms suggests contamination 11/02/2018 7:46 PM EDT 11/03/2018 2:29 PM EDT Narrative [facility] - 11/05/2018 3:50 PM EDT Ordered by Discern Expert [facility] Historical Provider PATHOLOGY/CYTOLOGY ORDE RABLES Final Result Performing Organization Address [facility]/ZIP Co de Phone Number [facility] [address] [phone] documented in this encounter Visit Diagnoses Not on filedocumented in this encounter
--- OUTSIDE RECORDS SUMMARY | 2024-06-26 16:10 | XMS_ITS | Encounter Summary ---
Author Organization [employer] Address [address] [place] [address] Care Team Providers Care Housekeeping Laundry Worker Name Role Phone Unavailable Primary Care Provider Unavailabl e Encounter Details Date Type Department Care Team (Late st Contact Info) Description 09/12/2018 Historic Encounter [facility] Radiology [address] [place] [address] Ragini Tan MD [address] [address] Social History Tobacco Use Types [...] Name Priority Date/Time Associated Diagnosis Comments OB 1ST TRI SGL 1ST GEST Routine 09/12/2018 11:19 AM EST documented in this encounter Results * US OB 1st Tri Sgl 1st Gest (09/12/2018 11:19 AM EST) Anatomical Region Laterality Modality Ultrasound 09/12/2018 11:1 9 AM EST Narrative 09/12/2018 6:40 PM EST PROCEDURE: ??ULTRASOUND UTERUS, LESS THAN 14 WEEKS INDICATION: ?? Determine gestational age. ??Viability. ??LMP 07/05/2018. TECHNIQUE: ??Sonographic images of the pelvis were obtained. COMPARISON: ??09/01/2018. FINDINGS: ??The uterus is anteverted and anteflexed measuring 10.4 x 6.1 x 7.4 cm. There is a gestational sac with a pole within the endometrial cavity. [place]-rump length measures 2.3 cm which correlates to a 9 week, 0 day gestation. The yolk sac appears normal. Cardiac activity is present with a heart rate of 183 beats per minutes. Mean gestational sac size is 3.08 cm which correlates to an 8 week, 0 day gestation. A small subchorionic hemorrhage is evolving. The cervix is closed. The left ovary measures 2.9 x 3.5 x 2.8 cm. A hypoechoic, thick-walled lesion within the left ovary measuring approximately 2 cm contains internal echoes and may represent a hemorrhagic corpus luteal cyst. There is a separate, 2 cm cyst within the left ovary. The right ovary measures 3.4 x 3.4 x 3.7 cm. It is unremarkable. IMPRESSION: ?? 1. Single, living, intrauterine gestation with an average ultrasound age of 8 weeks, 6 days. 2. Probable corpus luteal cyst in the left ovary. Procedure Note Ragini Tan MD - 11/09/2022 PROCEDURE: ULTRASOUND UTERUS, LESS THAN 14 WEEKS INDICATION: Determine gestational age. Viability. LMP 07/05/2018. TECHNIQUE: Sonographic images of the pelvis were obtained. COMPARISON: 09/01/2018. FINDINGS: The uterus is anteverted and anteflexed measuring 10.4 x 6.1 x 7.4 cm. There is a gestational sac with a pole within the endometrial cavity. [place]-rump length measures 2.3 cm which correlates to a 9 week, 0 day gestation. The yolk sac appears normal. Cardiac activity is present with a heart rate of 183 beats per minutes. Mean gestational sac size is 3.08 cm which correlates to an 8 week, 0 day gestation. A small subchorionic hemorrhage is evolving. The cervix is closed. The left ovary measures 2.9 x 3.5 x 2.8 cm. A hypoechoic, thick-walled lesion within the left ovary measuring approximately 2 cm contains internal echoes and may represent a hemorrhagic corpus luteal cyst. There is a separate, 2 cm cyst within the left ovary. The right ovary measures 3.4 x 3.4 x 3.7 cm. It is unremarkable. IMPRESSION: 1. Single, living, intrauterine gestation with an average ultrasound age of 8 weeks, 6 days. 2. Probable corpus luteal cyst in the left ovary. us Ragini Tan MD IMG US ORDERABLES Final Result documented in this encounter Visit Diagnoses Not on filedocumented in this encounter
--- OUTSIDE RECORDS SUMMARY | 2024-06-26 16:10 | XMS_ITS | Encounter Summary ---
Author Organization [employer] Address [address] [place] [address] Care Team Providers Care Oleo Hasher And Renderer Name Role Phone Unavailable Primary Care Provider Unavailabl e Encounter Details Date Type Department Care Team (Late st Contact Info) Description 03/13/2019 Transcribed Document [facility] [place] [facility] [place] [address] ProviderVineet MD [facility] [place] [address] Social History Tobacco Use Types Packs/Day Years Used Date Smoking Tobacco: Never Assessed Comments Unknown Sex and Gender Information Value Date Recorded Sex Assigned at Not on file Legal Sex Female 3:37 PM CDT Gender Identity Not on file Sexual Orientation Not on file documented as of this encounter Miscellaneous Notes * [place] Conversion Note - Vineet Fitzgerald MD - 03/13/2019 11:32 AM CDT Admission Data, OB Entered On: 03/13/2019 11:34 EDT Performed On: 03/13/2019 11:32 EDT by LIZ OG RN Advance Directive Patient has Advance Directive *Q : No, patient refuses Advance Directive information LIZ OG RN - 03/13/2019 11:32 EDT Height and Weight Height Source : Measured Height Entry Format : [place] Height, Feet : 5 ft(Converted to: 152 cm, 60 Inch) Clinical Height : 172.72 cm Height, Inches : 8 Inch(Converted to: 0 ft 8 Inch, 20.32 cm) Weight Source : Standing scale Weight Entry Format : [place] Weight, Pounds : 297 lb Clinical Dosing Weight : 135 kg Body Surface Area (BSA) : 2.42 m2 Body Mass Index : 45.3 kg/m2 (>HHI) [place] Body Weight (IBW) : 63.45 kg LIZ OG RN - 03/13/2019 11:32 EDT Health Histories Smoking Status : Never (less than 100 in lifetime; none in last 30 days) Smokeless Tobacco Status : Never LIZ OG RN - 03/13/2019 11:32 EDT Social History (As Of: 03/13/2019 11:34:28 EDT) Tetanus Immunization Status Previous Tetanus Immunizations : No qualifying data available. Tetanus Immunization : Unknown LIZ OG RN - 03/13/2019 11:32 EDT Influenza Vaccine Asmt, Adult Previous Vaccines from Immunization Schedule : No qualifying data available. Influenza Immunization, Current Season : Outside of influenza season LIZ OG RN - 03/13/2019 11:32 EDT Pneumococcal Vaccine Previous Vaccines from Immunization Schedule : No qualifying data available. Pneumonia Immunization Received : No Pneumococcal Risk Assessment < Age 65 : None LIZ OG RN - 03/13/2019 11:32 EDT Order Details Transport Mode Order Detail : Ambulatory Isolation Precautions Order Detail : Standard Precautions Order Detail : 1 IV Order Detail : 0 Oxygen Order Detail : 0 Nurse Collect Order Detail : 1 Lift/Transfer : Minimal Central Line Order Detail : No Room Service : Appropriate Arterial Line : No LIZ OG RN - 03/13/2019 11:32 EDT Vital Measurements Temperature Source : Oral Temperature Mode : Fahrenheit Temperature, Fahrenheit : 98.7 Deg F Clinical Temperature, C : 37.1 Deg C Pulse Method : Non-Invasive BP Device Pulse Source : Apical Heart Rate, Apical : 88 bpm Pulse Rhythm : Regular Respiratory Rate : 18 Breaths/Min Blood Pressure Location : Arm, left upper Blood Pressure Source : Non-Invasive BP Device Blood Pressure Position : Side, Right Systolic Blood Pressure : 97 mmHg Diastolic Blood Pressure : 50 mmHg (LOW) LIZ OG RN - 03/13/2019 11:32 EDT Infectious Disease History Infectious Disease History : Chicken pox/Shingles Fever/Chills Last 48 Hours : No Travel To Regions with Travel Advisories : No Travel Outside [place] Within Last 30 Days : No Contact With Traveler to Advisory Region : No Tuberculosis Symptoms : None LIZ OG RN - 03/13/2019 11:32 EDT documented in this encounter Plan of Treatment Not on file documented as of this encounter Visit Diagnoses Not on filedocumented in this encounter
--- OUTSIDE RECORDS SUMMARY | 2024-06-26 16:10 | XMS_ITS | Encounter Summary ---
Author Organization [employer] Address [address] [place] [address] Care Team Providers Care Radiator Cleaner Name Role Phone Unavailable Primary Care Provider Unavailabl e Encounter Details Date Type Department Care Team (Late st Contact Info) Description 03/13/2019 Transcribed Document [facility] [place] [address] [place] [address] ProviderVineet MD [address] [place] [address] Social History Tobacco Use Types Packs/Day Years Used Date Smoking Tobacco: Never Assessed Comments Unknown Sex and Gender Information Value Date Recorded Sex Assigned at Not on file Legal Sex Female 3:37 PM CDT Gender Identity Not on file Sexual Orientation Not on file documented as of this encounter Miscellaneous Notes * Cerner Conversion Note - Vineet Fitzgerald MD - 03/13/2019 1:49 PM CDT Stroke/Warfarin Instructions Entered On: 03/13/2019 13:49 EDT Performed On: 03/13/2019 13:49 EDT by LIZ OG RN Stroke/Warfarin Instructions Stroke/TIA Discharge Ins : N/A Warfarin Discharge Ins : N/A LIZ OG RN - 03/13/2019 13:49 EDT Electronically signed by Shereen Gilbert Conversion Wellness Program Administrator Cerner at 11/12/2022 3:02 PM CDT documented in this encounter Plan of Treatment Not on file documented as of this encounter Visit Diagnoses Not on filedocumented in this encounter
--- OUTSIDE RECORDS SUMMARY | 2024-06-26 16:10 | XMS_ITS | Encounter Summary ---
Author Organization [employer] Address [address] [place] [address] Care Team Providers Care Ribbon Hanking Machine Operator Name Role Phone Unavailable Primary Care Provider Unavailabl e Encounter Details Date Type Department Care Team (Late st Contact Info) Description 11/02/2018 Transcribed Document [facility] [place] [facility] [place] [address] ProviderVineet MD [facility] [place] [address] Social History Tobacco Use Types Packs/Day Years Used Date Smoking Tobacco: Never Assessed Comments Unknown Sex and Gender Information Value Date Recorded Sex Assigned at Not on file Legal Sex Female 3:37 PM CDT Gender Identity Not on file Sexual Orientation Not on file documented as of this encounter Miscellaneous Notes * Cerner Conversion Note - Vineet Fitzgerald MD - 11/02/2018 7:38 PM CDT Admission Data, OB Entered On: 11/02/2018 19:39 EDT Performed On: 11/02/2018 19:38 EDT by JAMIL BRAR RN Advance Directive Patient has Advance Directive *Q : No, patient refuses Advance Directive information JAMIL BRAR RN - 11/02/2018 19:38 EDT Height and Weight Height Source : Measured Height Entry Format : [place] Height, Feet : 5 ft(Converted to: 152 cm, 60 Inch) Clinical Height : 172.72 cm Height, Inches : 8 Inch(Converted to: 0 ft 8 Inch, 20.32 cm) Weight Source : Standing scale Weight Entry Format : [place] Weight, Pounds : 273 lb Clinical Dosing Weight : 124.09 kg Body Surface Area (BSA) : 2.33 m2 Body Mass Index : 41.6 kg/m2 (>HHI) [place] Body Weight (IBW) : 63.45 kg JAMIL BRAR RN - 11/02/2018 19:38 EDT Health Histories Smoking Status : Former smoker, quit more than 30 days ago Smokeless Tobacco Status : Never JAMIL BRAR RN - 11/02/2018 19:38 EDT Social History (As Of: 11/02/2018 19:39:47 EDT) Gestational Age Gestational Age Person Gestational Age At : 115days Method : Comment : Tetanus Immunization Status Previous Tetanus Immunizations : No qualifying data available. Tetanus Immunization : Greater than 5 years JAMIL BRAR RN - 11/02/2018 19:38 EDT Influenza Vaccine Asmt, Adult Previous Vaccines from Immunization Schedule : No qualifying data available. Influenza Immunization, Current Season : Outside of influenza season JAMIL BRAR RN - 11/02/2018 19:38 EDT Pneumococcal Vaccine Previous Vaccines from Immunization Schedule : No qualifying data available. Pneumonia Immunization Received : No Pneumococcal Risk Assessment < Age 65 : None JAMIL BRAR RN - 11/02/2018 19:38 EDT Order Details Transport Mode Order Detail : Ambulatory Isolation Precautions Order Detail : Standard Precautions Order Detail : 1 IV Order Detail : 0 Oxygen Order Detail : 0 Nurse Collect Order Detail : 1 Lift/Transfer : Independent Central Line Order Detail : No Room Service : Appropriate Arterial Line : No JAMIL BRAR RN - 11/02/2018 19:38 EDT Vital Measurements Temperature Source : Oral Temperature Mode : Fahrenheit Temperature, Fahrenheit : 97.8 Deg F Clinical Temperature, C : 36.6 Deg C Pulse Method : Non-Invasive BP Device Peripheral Pulse Rate : 74 bpm Pulse Rhythm : Regular Respiratory Rate : 14 Breaths/Min Blood Pressure Source : Non-Invasive BP Device Systolic Blood Pressure : 114 mmHg Diastolic Blood Pressure : 50 mmHg (LOW) AJMIL BRAR RN - 11/02/2018 19:38 EDT Infectious Disease History Infectious Disease History : Chicken pox/Shingles Fever/Chills Last 48 Hours : No Travel To Regions with Travel Advisories : No Travel Outside [place] Within Last 30 Days : No Contact With Traveler to Advisory Region : No Tuberculosis Symptoms : None JAMIL BRAR RN - 11/02/2018 19:38 EDT documented in this encounter Plan of Treatment Not on file documented as of this encounter Visit Diagnoses Not on filedocumented in this encounter
--- OUTSIDE RECORDS SUMMARY | 2024-06-26 16:10 | XMS_ITS | Encounter Summary ---
Author Organization [employer] Address [address] [place] [address] Care Team Providers Care Statistical Analyst Name Role Phone Unavailable Primary Care Provider Unavailabl e Encounter Details Date Type Department Care Team (Late st Contact Info) Description 12/21/2018 Transcribed Document [facility] [place] [facility] [place] [address] ProviderVineet MD [address] [place] [address] Social History Tobacco Use Types Packs/Day Years Used Date Smoking Tobacco: Never Assessed Comments Unknown Sex and Gender Information Value Date Recorded Sex Assigned at Not on file Legal Sex Female 3:37 PM CDT Gender Identity Not on file Sexual Orientation Not on file documented as of this encounter Miscellaneous Notes * Cerner Conversion Note - Vineet Fitzgerald MD - 12/21/2018 2:11 AM CDT Patient Education Materials Follows:and Gynecology Second Trimester of The second trimester is [...] about 9 inches long and weighs about 1? pounds. You will likely feel the baby move between 18 and 20 weeks of . Follow these instructions at home: Medicines ??? Take lztz-djo-telyhie and prescription medicines only as told by [...] 10/05/2010 Document Revised: 08/16/2017 Document Reviewed: 08/16/2017 [employer] Interactive Patient Education ? 2019 Mytrus. and Urinary Tract Infection What is a [...] regular soda, juice, and sweets. ??? Drink 6?8 glasses of water daily. ??? Do not [...] 11/05/2011 Document Revised: 06/24/2017 Document Reviewed: 05/31/2016 [employer] Interactive Patient Education ? 2019 Mytrus. documented in this encounter Plan of Treatment Not on file documented as of this encounter Visit Diagnoses Not on filedocumented in this encounter
--- OUTSIDE RECORDS SUMMARY | 2024-06-26 16:10 | XMS_ITS | Encounter Summary ---
Author Organization [employer] In [employer] Address [address] [place] [address] Care Team Providers Care Psychiatric Np Name Role Phone Unavailable Primary Care Provider Unavailabl e Encounter Details Date Type Department Care Team (Late st Contact Info) Description 02/08/2019 Transcribed Document [facility] [place] [address] [place] [address] ProviderVineet MD [address] [place] [address] Social History Tobacco Use Types Packs/Day Years Used Date Smoking Tobacco: Never Assessed Comments Unknown Sex and Gender Information Value Date Recorded Sex Assigned at Not on file Legal Sex Female 3:37 PM CDT Gender Identity Not on file Sexual Orientation Not on file documented as of this encounter Miscellaneous Notes * Cerner Conversion Note - Historical ProviderMD - 02/08/2019 2:08 PM CDT Stroke/Warfarin Instructions Entered On: 02/08/2019 14:08 EDT Performed On: 02/08/2019 14:08 EDT by Alberto Peña, RN Stroke/Warfarin Instructions Stroke/TIA Discharge Ins : N/A Warfarin Discharge Ins : N/A Alberto Peña RN - 02/08/2019 14:08 EDT Electronically signed by Shereen Gilbert Conversion Investigation Division Sergeant Cerner at 11/12/2022 2:44 PM CDT documented in this encounter Plan of Treatment Not on file documented as of this encounter Visit Diagnoses Not on filedocumented in this encounter
--- OUTSIDE RECORDS SUMMARY | 2024-06-26 16:10 | XMS_ITS | Encounter Summary ---
Author Organization [email or web address] In [employer] Address [address] [place] [address] Care Team Providers Care Tamale Maker Name Role Phone Unavailable Primary Care Provider Unavailabl e Encounter Details Date Type Department Care Team (Late st Contact Info) Description 12/21/2018 Transcribed Document [facility] [place] Family Medicine [address] [place] [address] ProviderVineet MD [address] [place] [address] Social History Tobacco Use Types Packs/Day Years Used Date Smoking Tobacco: Never Assessed Comments Unknown Sex and Gender Information Value Date Recorded Sex Assigned at Not on file Legal Sex Female 3:37 PM CDT Gender Identity Not on file Sexual Orientation Not on file documented as of this encounter Miscellaneous Notes * Cerner Conversion Note - Historical ProviderMD - 12/21/2018 2:12 AM CDT Stroke/Warfarin Instructions Entered On: 12/21/2018 2:12 EDT Performed On: 12/21/2018 2:12 EDT by Aline Gates RN Stroke/Warfarin Instructions Stroke/TIA Discharge Ins : N/A Warfarin Discharge Ins : N/A Aline Gates RN - 12/21/2018 2:12 EDT documented in this encounter Plan of Treatment Not on file documented as of this encounter Visit Diagnoses Not on filedocumented in this encounter
--- OUTSIDE RECORDS SUMMARY | 2024-06-26 16:10 | XMS_ITS | Encounter Summary ---
Author Organization [employer] In [employer] Address [address] [place] [address] Care Team Providers Care Edging Catcher Name Role Phone Unavailable Primary Care Provider Unavailabl e Encounter Details Date Type Department Care Team (Late st Contact Info) Description 01/27/2019 Transcribed Document [facility] [place] [facility] [place] [address] ProviderVineet MD [facility] [place] [address] Social History Tobacco Use Types Packs/Day Years Used Date Smoking Tobacco: Never Assessed Comments Unknown Sex and Gender Information Value Date Recorded Sex Assigned at Not on file Legal Sex Female 3:37 PM CDT Gender Identity Not on file Sexual Orientation Not on file documented as of this encounter Miscellaneous Notes * Cerner Conversion Note - Vineet Fitzgerald MD - 01/27/2019 9:30 PM CDT Nursing Discharge Summary Entered On: 01/27/2019 21:31 EDT Performed On: 01/27/2019 21:30 EDT by Angie Fuchs RN Discharge Documentation Discharge Date/Time : 01/27/2019 21:30 EDT Patient Disposition, General : Discharge Discharge To : Home with ambulatory/outpatient follow-up Mode Of Departure, General Discharge : Private vehicle Accompanied By, Discharge : Spouse IV Discontinued : Not applicable Medications Given to Patient : No Personal Belongings With Patient : Yes Prescriptions Given to Patient : Yes Discharge Instructions Reviewed With, Opportunity For Questions Given : Patient, Spouse Patient Education Completed : Yes Number of Prescriptions Given : 1 Teaching Method : Printed materials Teaching Evaluation : Verbalizes understanding Worker's Compensation Paperwork Completed : No Angie Fuchs RN - 01/27/2019 21:30 EDT documented in this encounter Plan of Treatment Not on file documented as of this encounter Visit Diagnoses Not on filedocumented in this encounter
--- OUTSIDE RECORDS SUMMARY | 2024-06-26 16:10 | XMS_ITS | Encounter Summary ---
Author Organization [employer] In [employer] Address [address] [place] [address] Care Team Providers Care Primary Education Professor Name Role Phone Unavailable Primary Care Provider Unavailabl e Encounter Details Date Type Department Care Team (Late st Contact Info) Description 02/08/2019 Transcribed Document [facility] [place] Family Medicine [address] [place] [address] ProviderVineet MD [facility] [place], [place] [address] Social History Tobacco Use Types Packs/Day Years Used Date Smoking Tobacco: Never Assessed Comments Unknown Sex and Gender Information Value Date Recorded Sex Assigned at Not on file Legal Sex Female 3:37 PM CDT Gender Identity Not on file Sexual Orientation Not on file documented as of this encounter Miscellaneous Notes * Cerner Conversion Note - Historical ProviderMD - 02/08/2019 2:08 PM CDT Nursing Discharge Summary Entered On: 02/08/2019 14:10 EDT Performed On: 02/08/2019 14:08 EDT by Alberto Peña air reduction equipment operator Documentation Discharge Date/Time : 02/08/2019 14:15 EDT Patient Disposition, General : Discharge Discharge To : Other: home Mode Of Departure, General Discharge : Ambulatory Accompanied By, Discharge : Unaccompanied IV Discontinued : Not applicable Medications Given to Patient : No Personal Belongings With Patient : Yes Pt's Own Supply of Medications Returned : Yes Prescriptions Given to Patient : No Discharge Instructions Reviewed With, Opportunity For Questions Given : Patient Patient Education Completed : Yes Teaching Method : Printed materials Teaching Evaluation : Verbalizes understanding Alberto Peña, RN - 02/08/2019 14:08 EDT Electronically signed by Vladimir [facility] Conversion Cleaner Assistant Cerner at 11/12/2022 2:53 PM CDT documented in this encounter Plan of Treatment Not on file documented as of this encounter Visit Diagnoses Not on filedocumented in this encounter
--- OUTSIDE RECORDS SUMMARY | 2024-06-26 16:10 | XMS_ITS | Encounter Summary ---
Author Organization [employer] Address [address] [place] [address] Care Team Providers Care Material Control Specialist Name Role Phone Unavailable Primary Care Provider Unavailabl e Encounter Details Date Type Department Care Team (Late st Contact Info) Description 01/14/2019 Transcribed Document [facility] [place] [facility] [place] [address] ProviderVineet MD [facility] [place] [address] Social History Tobacco Use Types Packs/Day Years Used Date Smoking Tobacco: Never Assessed Comments Unknown Sex and Gender Information Value Date Recorded Sex Assigned at Not on file Legal Sex Female 3:37 PM CDT Gender Identity Not on file Sexual Orientation Not on file documented as of this encounter Miscellaneous Notes * Cerner Conversion Note - Vineet Fitzgerald MD - 01/14/2019 12:33 PM CDT Patient Education Materials Follows:and Gynecology Movement Counts Patient Name: Patient Due Date: [...] 08/10/2007 Document Revised: 03/09/2017 Document Reviewed: 08/19/2016 [employer] Interactive Patient Education ? 2019 [employer] Second Trimester of The second trimester [...] these instructions at home: Medicines ??? Take ajso-dvy-mlyceqt and prescription medicines only as told by [...] 10/05/2010 Document Revised: 08/16/2017 Document Reviewed: 08/16/2017 [employer] Interactive Patient Education ? 2019 [employer] Electronically signed by Shereen Gilbert Conversion Corrections Unit Supervisor Cerner at 11/12/2022 2:38 PM CDT documented in this encounter Plan of Treatment Not on file documented as of this encounter Visit Diagnoses Not on filedocumented in this encounter
--- OUTSIDE RECORDS SUMMARY | 2024-06-26 16:10 | XMS_ITS | Encounter Summary ---
Author Organization [employer] In [employer] Address [address] [place] [address] Care Team Providers Care Document Specialist Name Role Phone Unavailable Primary Care Provider Unavailabl e Encounter Details Date Type Department Care Team (Late st Contact Info) Description 01/14/2019 Transcribed Document [facility] [place] Family Medicine [address] [place] [address] ProviderVineet MD [address] [place] [address] Social History Tobacco Use Types Packs/Day Years Used Date Smoking Tobacco: Never Assessed Comments Unknown Sex and Gender Information Value Date Recorded Sex Assigned at Not on file Legal Sex Female 3:37 PM CDT Gender Identity Not on file Sexual Orientation Not on file documented as of this encounter Miscellaneous Notes * Cerner Conversion Note - Historical ProviderMD - 01/14/2019 12:34 PM CDT Stroke/Warfarin Instructions Entered On: 01/14/2019 12:34 EDT Performed On: 01/14/2019 12:34 EDT by DOUGLAS COTTO Stroke/Warfarin Instructions Stroke/TIA Discharge Ins : N/A Warfarin Discharge Ins : N/A DOUGLAS COTTO - 01/14/2019 12:34 EDT documented in this encounter Plan of Treatment Not on file documented as of this encounter Visit Diagnoses Not on filedocumented in this encounter
--- OUTSIDE RECORDS SUMMARY | 2024-06-26 16:10 | XMS_ITS | Encounter Summary ---
Author Organization [employer] Address [address] [place] [address] Care Team Providers Care Foreign Law Consultant Name Role Phone Unavailable Primary Care Provider Unavailabl e Encounter Details Date Type Department Care Team (Late st Contact Info) Description 08/25/2018 Historic Encounter [facility] Radiology [address] [place] [address] Zohra Crump MD [facility] [address] [address] Social History Tobacco Use Types Packs/Day Years [...] OB 1ST TRI SGL 1ST GEST Routine 08/25/2018 11:38 AM EST documented in this encounter Results * US OB 1st Tri Sgl 1st Gest (08/25/2018 11:38 AM EST) Anatomical Region Laterality Modality Ultrasound 08/25/2018 11:3 8 AM EST Narrative 08/25/2018 6:34 PM EST PELVIC ULTRASOUND HISTORY: . PROCEDURE: Transvaginal ??images of the pelvis were obtained. FINDINGS: There is a single IUP with a CR length corresponding to 5 weeks 6 days. ?? There is no significant ??free fluid . ??There are 2 left adnexal lesions. A 17 mm complicated cyst and a 14 mm simple cyst. heart rate is 130 beats per minute . ? IMPRESSION: ??Single viable IUP . Estimated date of delivery: April 21 2019. Procedure Note Zohra Crump MD - 11/09/2022 PELVIC ULTRASOUND HISTORY: . PROCEDURE: Transvaginal images of the pelvis were obtained. FINDINGS: There is a single IUP with a CR length corresponding to 5 weeks 6 days. There is no significant free fluid . There are 2 left adnexal lesions. A 17 mm complicated cyst and a 14 mm simple cyst. heart rate is 130 beats per minute . IMPRESSION: Single viable IUP . Estimated date of delivery: April 21 2019. us A Sridhar Crump MD IMG US ORDERABLES Final R esult documented in this encounter Visit Diagnoses Not on filedocumented in this encounter
--- OUTSIDE RECORDS SUMMARY | 2024-06-26 16:10 | XMS_ITS | Encounter Summary ---
Author Organization [employer] In [employer] Address [address] [place] [address] Care Team Providers Care Child Welfare Assistant Name Role Phone Unavailable Primary Care Provider Unavailabl e Encounter Details Date Type Department Care Team (Late st Contact Info) Description 01/14/2019 Historic Encounter [facility] [address] [place] [address] ProviderLeanne Historical Social History Tobacco [...] Associated Diagnosis Comments OB URINE DRUG SCRN ([facility] DATA CONV) Routine 01/14/2019 11:39 AM EDT URINALYSIS UA RFLX MICROSCOPIC CULT IF IND ([facility] DATA CONV) Routine 01/14/2019 11:39 AM EDT URINALYSIS MICROSCOPIC ([facility] DATA CONV) Routine 01/14/2019 11:39 AM EDT URINE CULTURE AND SENSITIVITY Routine 01/14/2019 11:39 AM EDT documented in this encounter Results * OB URINE DRUG SCRN ([facility] DATA CONV) (01/14/2019 11:39 AM EDT) UDS Amp Negative Negative 01/14/2019 4:47 PM EDT Comment: Cutoff 500 ng/ml Test is for screening purposes only. Clinical consideration and professional judgement should be applied to any ebwh-rk-qfagx test result, particularly when preliminary positive results [...] or drug use. UDS Lydia Negative Negative 01/14/2019 4:47 PM EDT Comment:Cutoff 200 ng/ml UDS Benzo Negative Negative 01/14/2019 4:47 PM EDT Comment:Cutoff 150 ng/ml UDS Wendy Negative 01/14/2019 4:47 PM EDT Comment:Cutoff 150 ng/ml UDS Meth Negative Negative 01/14/2019 4:47 PM EDT Comment:Cutoff 300 ng/ml UDS Opi Negative Negative 01/14/2019 4:47 PM EDT Comment:Cutoff 300ng/ml UDS Oxy Negative Negative 01/14/2019 4:47 PM EDT Comment:Cutoff 50 ng/ml UDS PCP Negative Negative 01/14/2019 4:47 PM EDT Comment:Cutoff 25 ng/ml UDS TCA Negative Negative 01/14/2019 4:47 PM EDT Comment:Cutoff 1000 ng/ml UDS THC Negative Negative 01/14/2019 4:47 PM EDT Comment:Cutoff 20 ng/ml Buprenorphine Screen, Urine Negative Negative 01/14/2019 4:47 PM EDT Comment:Cutoff 5 ng/ml Heroin Metab(6AM) by LC-MS/MS, Urine Negative Negative 01/14/2019 4:47 PM EDT Comment: Cutoff 10 ng/ml Screening only. Clinical consideration and professional judgement should be applied to any drug of abuse test result, particularly when preliminary positive results are used. Positive results should be confirmed if used for clinical or legal purposes. Propoxyphene, Urine Negative Negative 01/14/2019 4:47 PM EDT Comment:Cutoff 25 ng/ml UDS pH 6.9 01/14/2019 4:47 PM EDT Sp. [place], Urine 1.020 01/14/2019 4:47 PM EDT UDS Creatinine, Toxicology 116.8 mg/dL 01/14/2019 4:47 PM EDT Urine 01/14/2019 11:3 9 AM EDT 01/14/2019 3:56 PM EDT [facility] Historical Provider URINE ORDERABLES Final Result Performing Organization Address City/[facility]/ZIP Co de Phone Number [facility] [address] [place] [address] [phone] * (ABNORMAL) URINALYSIS UA RFLX MICROSCOPIC CULT IF IND ([facility] DATA CONV) (01/14/2019 11:39 AM EDT) Urine Type. U CleanCatch 01/14/2019 3:56 PM EDT Urine Color Yellow 01/14/2019 4:19 PM EDT Comment: Substances that cause HIGHLY abnormal urine color may affect the accuracy of URINE CHEMISTRY reagent strip results due to colorimetric interference. ??These include visible levels of blood or bilirubin, drugs containing dyes, and some antibiotics such as nitrofurantoin and riboflavin which can cause markedly abnormal urine coloration. Urine Appearance Clear 01/14/2019 4:19 PM EDT Urine Specific [place] 1.020 1.005 - 1.030 01/14/2019 4:19 PM EDT Urine pH Dipstick 6.5 6.0 - 8.0 01/14/2019 4:19 PM EDT Urine Leukocyte Esterase Small(A) Negative 01/14/2019 4:19 PM EDT Urine Nitrite Negative Negative 01/14/2019 4:19 PM EDT Urine Protein Dipstick Negative Negative 01/14/2019 4:19 PM EDT Urine Glucose Dipstick Negative Negative 01/14/2019 4:19 PM EDT Urine Ketones Dipstick Negative Negative 01/14/2019 4:19 PM EDT Urine Urobilinogen Dipstick 0.2 0.2 - 1.0 EU/dL 01/14/2019 4:19 PM EDT Urine Bilirubin Dipstick Negative Negative 01/14/2019 4:19 PM EDT Urine Blood Dipstick Negative Negative 01/14/2019 4:19 PM EDT 01/14/2019 11:3 9 AM EDT 01/14/2019 3:56 PM EDT [facility] Provider URINE ORDERABLES Final Result [facility] [address] [phone] * URINE CULTURE AND SENSITIVITY (01/14/2019 11:39 AM EDT) Final 10,000-100,000 cfu/ml Recollect Specimen - 3 or more organisms suggests contamination Pre Culture in progress 01/14/2019 11:3 9 AM EDT 01/14/2019 9:17 PM EDT Narrative [facility] - 01/16/2019 1:23 PM EDT Ordered by Discern Expert [facility] Historical Provider PATHOLOGY/CYTOLOGY ORDE RABLES Final Result [facility] [address] [phone] * (ABNORMAL) URINALYSIS MICROSCOPIC ([facility] DATA CONV) (01/14/2019 11:39 AM EDT) Correlate UA Correlated Correlated 01/14/2019 5:01 PM EDT Ur RBC 0-2(A) None Seen /HPF 01/14/2019 5:01 PM EDT Ur WBC 2-5(A) None Seen /HPF 01/14/2019 5:01 PM EDT Ur Bacteria 1+(A) None Seen 01/14/2019 5:01 PM EDT Ur Epithelial Cells 10-20(A) None Seen /HPF 01/14/2019 5:01 PM EDT 01/14/2019 11:3 9 AM EDT 01/14/2019 3:56 PM EDT Narrative [facility] - 01/14/2019 5:01 PM EDT Added by Discern Expert [facility] Historical Provider URINE ORDERABLES Final Result Performing Organization Address City/[facility]/ZIP Co de Phone Number [facility] [address] [phone] documented in this encounter Visit Diagnoses Not on filedocumented in this encounter
--- OUTSIDE RECORDS SUMMARY | 2024-06-26 16:10 | XMS_ITS | Encounter Summary ---
Author Organization [employer] Address [address] [place] [address] Care Team Providers Care Bsa Officer Name Role Phone Unavailable Primary Care Provider Unavailabl e Encounter Details Date Type Department Care Team (Late st Contact Info) Description 03/13/2019 Transcribed Document [facility] [place] [facility] [place] [address] ProviderVineet MD [facility] [place] [address] Social History Tobacco Use Types Packs/Day Years Used Date Smoking Tobacco: Never Assessed Comments Unknown Sex and Gender Information Value Date Recorded Sex Assigned at Not on file Legal Sex Female 3:37 PM CDT Gender Identity Not on file Sexual Orientation Not on file documented as of this encounter Miscellaneous Notes * Cerner Conversion Note - Vineet Fitzgerald MD - 03/13/2019 2:42 PM CDT Patient: PAT MURPHY Age: 28 Years Sex: Female : 1990 Admit Date triage 1 -- nonreactive nst at 35.1wks, GDM. hadn't had anything to eat prior to visit; ate a honey bun on the way to hosp. good movement. 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 Discharge Date beautifully reactive Primary Care Provider KLEBER GREENE (REF)[facility] Discharge Diagnosis No Diagnosis on Record Procedures nst Reason for Hospitalization extended monitoring for nonreactive nst. no decels noted Vital Signs T: 37.1 ??C HR: 88 RR: 18 BP: 97/50 HT: 172.72 cm WT: 135 kg BMI: 45.3 Oxygen Settings (Last) No qualifying data available. Physical Exam abd; gravid, +fm reactive nst d/c home - stable Discharge Follow Up [facility] Osorio, Agriculture Internship - Within 2 to 3 days Discharge Medications (6) Active HumaLOG KwikPen 18 Units, SubCutaneous, AC Lunch HumaLOG KwikPen 20 Units, SubCutaneous, AC Dinner HumaLOG KwikPen 100 units/mL injectable solution 24 Units, SubCutaneous, AC Breakfast Lantus Solostar Pen 100 units/mL subcutaneous solution 66 Units, SubCutaneous, At Bedtime levothyroxine 50 mcg, Daily Multivitamins oral tablet Code Status Start: 03/13/19 11:36:00 EDT, Full Code, Continuous Order Consulting Physicians No Consulting Physician on Record. Current Diet Order No qualifying data available. Pending Labs No Labs on Record documented in this encounter Plan of Treatment Not on file documented as of this encounter Visit Diagnoses Not on filedocumented in this encounter
--- OUTSIDE RECORDS SUMMARY | 2024-06-26 16:10 | XMS_ITS | Encounter Summary ---
Author Organization [employer] Address [address] [place] [address] Care Team Providers Care Floor Tech Name Role Phone Unavailable Primary Care Provider Unavailabl e Encounter Details Date Type Department Care Team (Late st Contact Info) Description 02/08/2019 Transcribed Document [facility] [place] Family Medicine [address] [place] [address] ProviderVineet MD [address] [place] [address] Social History Tobacco Use Types Packs/Day Years Used Date Smoking Tobacco: Never Assessed Comments Unknown Sex and Gender Information Value Date Recorded Sex Assigned at Not on file Legal Sex Female 3:37 PM CDT Gender Identity Not on file Sexual Orientation Not on file documented as of this encounter Miscellaneous Notes * Cerner Conversion Note - Vineet Fitzgerald MD - 02/08/2019 2:08 PM CDT Patient Education Materials Follows:and Gynecology Third Trimester of The third trimester is from week 28 through week 40 (months 7 through 9). This trimester is when your unborn baby (fetus) is growing very fast. At the end of the ninth month, the unborn baby is about 20 inches in length. It weighs about 6?10 pounds. Follow these instructions at home: Medicines ??? Take xgvu-bcu-hspawaq and prescription medicines only as told by [...] 10/05/2010 Document Revised: 08/16/2017 Document Reviewed: 08/16/2017 [employer] Interactive Patient Education ? 2019 [employer] Electronically signed by Shereen Gilbert Conversion Waxing Machine Operator Helper Cerner at 11/12/2022 2:51 PM CDT documented in this encounter Plan of Treatment Not on file documented as of this encounter Visit Diagnoses Not on filedocumented in this encounter
--- OUTSIDE RECORDS SUMMARY | 2024-06-26 16:10 | XMS_ITS | Encounter Summary ---
Author Organization [employer] Address [address] [place] [address] Care Team Providers Care Scaffold Setter Name Role Phone Unavailable Primary Care Provider Unavailabl e Encounter Details Date Type Department Care Team (Late st Contact Info) Description 09/01/2018 Historic Encounter [facility] Radiology [address] [place] [address] Zohra Crump MD [facility] [address] [address] Social History Tobacco Use Types [...] Procedure Name Priority Date/Time Associated Diagnosis Comments US OB 1ST TRI SGL 1ST GEST Routine 09/01/2018 1:10 PM EST documented in this encounter Results * US OB 1st Tri Sgl 1st Gest (09/01/2018 1:10 PM EST) Anatomical Region Laterality Modality Ultrasound 09/01/2018 1:10 PM EST Narrative 09/01/2018 7:17 PM EST PELVIC ULTRASOUND HISTORY: . PROCEDURE: Transvaginal ??images of the pelvis were obtained. FINDINGS: There is a single IUP with a CR length corresponding to 7 weeks 1 day. ?? There is physiologic free fluid . ??There are 2 left adnexal cysts measuring up to 22 mm. heart rate is 150 beats per minute . ? IMPRESSION: ??Single viable IUP . Estimated date of delivery: April 19 2019. Procedure Note Zohra Crump MD - 11/09/2022 PELVIC ULTRASOUND HISTORY: . PROCEDURE: Transvaginal images of the pelvis were obtained. FINDINGS: There is a single IUP with a CR length corresponding to 7 weeks 1 day. There is physiologic free fluid . There are 2 left adnexal cysts measuring up to 22 mm. heart rate is 150 beats per minute . IMPRESSION: Single viable IUP . Estimated date of delivery: April 19 2019. us A Sridhar Crump MD IMG US ORDERABLES Final R esult documented in this encounter Visit Diagnoses Not on filedocumented in this encounter
--- OUTSIDE RECORDS SUMMARY | 2024-06-26 16:10 | XMS_ITS | Encounter Summary ---
Author Organization [employer] Address [address] [place] [id number] Care Team Providers Care Copper Flotation Operator Name Role Phone Unavailable Primary Care Provider Unavailabl e Encounter Details Date Type Department Care Team (Late st Contact Info) Description 02/08/2019 Transcribed Document [facility] [place] [facility] [place] [address] ProviderVineet MD [facility] [place] [address] Social History Tobacco Use Types Packs/Day Years Used Date Smoking Tobacco: Never Assessed Comments Unknown Sex and Gender Information Value Date Recorded Sex Assigned at Not on file Legal Sex Female 3:37 PM CDT Gender Identity Not on file Sexual Orientation Not on file documented as of this encounter Miscellaneous Notes * Cerner Conversion Note - Vineet Fitzgerald MD - 02/08/2019 12:44 PM CDT Admission Data, OB Entered On: 02/08/2019 12:45 EDT Performed On: 02/08/2019 12:44 EDT by TERESA WASHINGTON RN Advance Directive Patient has Advance Directive *Q : No, patient refuses Advance Directive information TERESA WASHINGTON RN - 02/08/2019 12:44 EDT Height and Weight Height Source : Stated Height Entry Format : Leggett Height, Feet : 5 ft(Converted to: 152 cm, 60 Inch) Clinical Height : 172.72 cm Height, Inches : 8 Inch(Converted to: 0 ft 8 Inch, 20.32 cm) Weight Source : Standing scale Weight Entry Format : [place] Weight, Pounds : 284 lb Clinical Dosing Weight : 129.09 kg Body Surface Area (BSA) : 2.37 m2 Body Mass Index : 43.3 kg/m2 (>HHI) [place] Body Weight (IBW) : 63.45 kg TERESA WASHINGTON RN - 02/08/2019 12:44 EDT Health Histories Smoking Status : Never (less than 100 in lifetime; none in last 30 days) Smokeless Tobacco Status : Never TERESA WASHINGTON RN - 02/08/2019 12:44 EDT Social History (As Of: 02/08/2019 12:45:50 EDT) Tetanus Immunization Status Previous Tetanus Immunizations : No qualifying data available. Tetanus Immunization : Unknown TERESA WASHINGTON RN - 02/08/2019 12:44 EDT Influenza Vaccine Asmt, Adult Previous Vaccines from Immunization Schedule : No qualifying data available. Influenza Immunization, Current Season : Outside of influenza season TERESA WASHINGTON RN - 02/08/2019 12:44 EDT Pneumococcal Vaccine Previous Vaccines from Immunization Schedule : No qualifying data available. Pneumonia Immunization Received : No Pneumococcal Risk Assessment < Age 65 : None TERESA WASHINGTON RN - 02/08/2019 12:44 EDT Order Details Transport Mode Order Detail : Ambulatory Isolation Precautions Order Detail : Standard Precautions Order Detail : 1 IV Order Detail : 0 Oxygen Order Detail : 0 Nurse Collect Order Detail : 1 Lift/Transfer : Independent Central Line Order Detail : No Room Service : Appropriate Arterial Line : No TERESA WASHINGTON RN - 02/08/2019 12:44 EDT Vital Measurements Temperature, Fahrenheit : 98.1 Deg F Clinical Temperature, C : 36.7 Deg C Peripheral Pulse Rate : 81 bpm Respiratory Rate : 18 Breaths/Min Systolic Blood Pressure : 116 mmHg Diastolic Blood Pressure : 55 mmHg (LOW) TERESA WASHINGTON RN - 02/08/2019 12:44 EDT Infectious Disease History Infectious Disease History : Chicken pox/Shingles Fever/Chills Last 48 Hours : No Travel To Regions with Travel Advisories : No Travel Outside [place] Within Last 30 Days : No Contact With Traveler to Advisory Region : No Tuberculosis Symptoms : None TERESA WASHINGTON RN - 02/08/2019 12:44 EDT documented in this encounter Plan of Treatment Not on file documented as of this encounter Visit Diagnoses Not on filedocumented in this encounter
--- OUTSIDE RECORDS SUMMARY | 2024-06-26 16:10 | XMS_ITS | Encounter Summary ---
Author Organization [employer] Address [address] [place] [address] Care Team Providers Care Asset Protection Representative Name Role Phone Unavailable Primary Care Provider Unavailabl e Encounter Details Date Type Department Care Team (Late st Contact Info) Description 12/21/2018 Transcribed Document [facility] [place] Family Medicine [address] [place] [address] ProviderVineet MD [facility] [place] [address] Social History Tobacco Use Types Packs/Day Years Used Date Smoking Tobacco: Never Assessed Comments Unknown Sex and Gender Information Value Date Recorded Sex Assigned at Not on file Legal Sex Female 3:37 PM CDT Gender Identity Not on file Sexual Orientation Not on file documented as of this encounter Miscellaneous Notes * Cerner Conversion Note - Historical ProviderMD - 12/21/2018 2:11 AM CDT Nursing Discharge Summary Entered On: 12/21/2018 2:12 EDT Performed On: 12/21/2018 2:11 EDT by Aline Gates RN Discharge Documentation Discharge Date/Time : 12/21/2018 2:11 EDT Patient Disposition, General : Discharge Discharge To : Home with ambulatory/outpatient follow-up Mode Of Departure, General Discharge : Ambulatory Accompanied By, Discharge : Unaccompanied IV Discontinued : Not applicable Medications Given to Patient : No Personal Belongings With Patient : Yes Prescriptions Given to Patient : No Discharge Instructions Reviewed With, Opportunity For Questions Given : Patient Patient Education Completed : Yes Teaching Method : Explanation Teaching Evaluation : Verbalizes understanding Aline Gates RN - 12/21/2018 2:11 EDT documented in this encounter Plan of Treatment Not on file documented as of this encounter Visit Diagnoses Not on filedocumented in this encounter
--- OUTSIDE RECORDS SUMMARY | 2024-06-26 16:10 | XMS_ITS | Encounter Summary ---
Author Organization [employer] Address [address] [place] [address] Care Team Providers Care Web Pressman Name Role Phone Unavailable Primary Care Provider Unavailabl e Encounter Details Date Type Department Care Team (Late st Contact Info) Description 11/02/2018 Transcribed Document [facility] [place] Family Medicine [address] [place] [address] ProviderVineet MD [facility] [place], [place] [id number] Social History Tobacco Use Types Packs/Day Years Used Date Smoking Tobacco: Never Assessed Comments Unknown Sex and Gender Information Value Date Recorded Sex Assigned at Not on file Legal Sex Female 3:37 PM CDT Gender Identity Not on file Sexual Orientation Not on file documented as of this encounter Miscellaneous Notes * Cerner Conversion Note - Vineet ProviderMD - 11/02/2018 8:46 PM CDT Nursing Discharge Summary Entered On: 11/02/2018 20:47 EDT Performed On: 11/02/2018 20:46 EDT by JAMIL BRAR RN Discharge Documentation Patient Disposition, General : Discharge Discharge [...] understanding Worker's Compensation Paperwork Completed : No JAMIL BRAR RN - 11/02/2018 20:46 EDT Electronically signed by Vladimir [facility] Conversion Associate Director Finance Cerner at 11/12/2022 2:59 PM CDT documented in this encounter Plan of Treatment Not on file documented as of this encounter Visit Diagnoses Not on filedocumented in this encounter
--- OUTSIDE RECORDS SUMMARY | 2024-06-26 16:10 | XMS_ITS | Encounter Summary ---
Author Organization [employer] Address [address] [place] [address] Care Team Providers Care Lettuce Cutter Name Role Phone Unavailable Primary Care Provider Unavailabl e Encounter Details Date Type Department Care Team (Late st Contact Info) Description 01/14/2019 Transcribed Document [facility] [place] Family Medicine [facility] [place] [address] ProviderVineet MD [facility] [address] Social History Tobacco Use Types Packs/Day Years Used Date Smoking Tobacco: Never Assessed Comments Unknown Sex and Gender Information Value Date Recorded Sex Assigned at Not on file Legal Sex Female 3:37 PM CDT Gender Identity Not on file Sexual Orientation Not on file documented as of this encounter Miscellaneous Notes * Cerner Conversion Note - Vineet ProviderMD - 01/14/2019 12:34 PM CDT Nursing Discharge Summary Entered On: 01/14/2019 12:35 EDT Performed On: 01/14/2019 12:34 EDT by DOUGLAS COTTO Discharge Documentation Patient Disposition, General : Discharge Discharge To : Home with ambulatory/outpatient follow-up Mode Of Departure, General Discharge : Ambulatory Accompanied By, Discharge : Significant other IV Discontinued : Not applicable Medications Given to Patient : No Personal Belongings With Patient : Yes Pt's Own Supply of Medications Returned : No Prescriptions Given to Patient : No Discharge Instructions Reviewed With, Opportunity For Questions Given : Patient, Significant other Patient Education Completed : Yes Teaching Method : Demonstration, Printed materials, Teach back method Teaching Evaluation : Verbalizes understanding Worker's Compensation Paperwork Completed : No DOUGLAS COTTO - 01/14/2019 12:34 EDT Electronically signed by Vladimir [facility] Conversion Technical Delivery Manager Cerner at 11/12/2022 2:39 PM CDT documented in this encounter Plan of Treatment Not on file documented as of this encounter Visit Diagnoses Not on filedocumented in this encounter
--- OUTSIDE RECORDS SUMMARY | 2024-06-26 16:10 | XMS_ITS | Encounter Summary ---
Author Organization [employer] Address [address] [place] [address] Care Team Providers Care Excel Analyst Name Role Phone Unavailable Primary Care Provider Unavailabl e Encounter Details Date Type Department Care Team (Late st Contact Info) Description 12/21/2018 Historic Encounter [facility] [address] [place] [address] ProviderLeanne Historical Social History Tobacco [...] Associated Diagnosis Comments OB URINE DRUG SCRN ([facility] DATA CONV) Routine 12/21/2018 1:03 AM EDT URINALYSIS UA RFLX MICROSCOPIC CULT IF IND ([facility] BK DATA CONV) Routine 12/21/2018 1:03 AM EDT URINALYSIS MICROSCOPIC ([facility] BK DATA CONV) Routine 12/21/2018 1:03 AM EDT URINE CULTURE AND SENSITIVITY Routine 12/21/2018 1:03 AM EDT documented in this encounter Results * (ABNORMAL) URINALYSIS MICROSCOPIC ([facility] BKR DATA CONV) (12/21/2018 1:03 AM EDT) Correlate UA Correlated Correlated 12/21/2018 5:26 AM EDT Ur RBC 2-5(A) None Seen /HPF 12/21/2018 5:26 AM EDT Ur WBC 10-20(A) None Seen /HPF 12/21/2018 5:26 AM EDT Ur Bacteria 1+(A) None Seen 12/21/2018 5:26 AM EDT Ur Epithelial Cells 5-10(A) None Seen /HPF 12/21/2018 5:26 AM EDT Ur Squamous Epithelial Cells 5-10(A) /HPF 12/21/2018 5:26 AM EDT 12/21/2018 1:03 AM EDT 12/21/2018 5:08 AM EDT Narrative [facility] - 12/21/2018 5:26 AM EDT Added by Discern Expert [facility] Historical Provider URINE ORDERABLES Final Result [facility] [address] [place] [address] * OB URINE DRUG SCRN ([facility] BKR DATA CONV) (12/21/2018 1:03 AM EDT) UDS Amp Negative Negative 12/21/2018 5:38 AM EDT Comment: Cutoff 500 ng/ml Test is for screening purposes only. Clinical consideration and professional judgement should be applied to any avez-pj-lggky test result, particularly when preliminary positive results [...] or drug use. UDS Lydia Negative Negative 12/21/2018 5:38 AM EDT Comment:Cutoff 200 ng/ml UDS Benzo Negative Negative 12/21/2018 5:38 AM EDT Comment:Cutoff 150 ng/ml UDS Wendy Negative 12/21/2018 5:38 AM EDT Comment:Cutoff 150 ng/ml UDS Meth Negative Negative 12/21/2018 5:38 AM EDT Comment:Cutoff 300 ng/ml UDS Opi Negative Negative 12/21/2018 5:38 AM EDT Comment:Cutoff 300ng/ml UDS Oxy Negative Negative 12/21/2018 5:38 AM EDT Comment:Cutoff 50 ng/ml UDS PCP Negative Negative 12/21/2018 5:38 AM EDT Comment:Cutoff 25 ng/ml UDS TCA Negative Negative 12/21/2018 5:38 AM EDT Comment:Cutoff 1000 ng/ml UDS THC Negative Negative 12/21/2018 5:38 AM EDT Comment:Cutoff 20 ng/ml Buprenorphine Screen, Urine Negative Negative 12/21/2018 5:38 AM EDT Comment:Cutoff 5 ng/ml Heroin Metab(6AM) by LC-MS/MS, Urine Negative Negative 12/21/2018 5:38 AM EDT Comment: Cutoff 10 ng/ml Screening only. Clinical consideration and professional judgement should be applied to any drug of abuse test result, particularly when preliminary positive results are used. Positive results should be confirmed if used for clinical or legal purposes. Propoxyphene, Urine Negative Negative 12/21/2018 5:38 AM EDT Comment:Cutoff 25 ng/ml UDS pH 7.0 12/21/2018 5:38 AM EDT Sp. [place], Urine 1.016 12/21/2018 5:38 AM EDT UDS Creatinine, Toxicology 129.3 mg/dL 12/21/2018 5:38 AM EDT Urine 12/21/2018 1:03 AM EDT 12/21/2018 5:08 AM EDT [facility] Historical Provider URINE ORDERABLES Final Result [facility] [address] [phone] * URINE CULTURE AND SENSITIVITY (12/21/2018 1:03 AM EDT) Final No growth Pre No growth 12/21/2018 1:03 AM EDT 12/21/2018 12:55 PM EDT Narrative [facility] - 12/23/2018 1:47 PM EDT Ordered by Discern Expert [facility] Historical Provider PATHOLOGY/CYTOLOGY ORDE RABLES Final Result Performing Organization Address [facility]/ZIP Co de Phone Number [facility] [address] [phone] * (ABNORMAL) URINALYSIS UA RFLX MICROSCOPIC CULT IF IND ([facility] BKR DATA CONV) (12/21/2018 1:03 AM EDT) Urine Type. U CleanCatch 12/21/2018 5:08 AM EDT Urine Color Yellow 12/21/2018 5:13 AM EDT Comment: Substances that cause HIGHLY abnormal urine color may affect the accuracy of URINE CHEMISTRY reagent strip results due to colorimetric interference. ??These include visible levels of blood or bilirubin, drugs containing dyes, and some antibiotics such as nitrofurantoin and riboflavin which can cause markedly abnormal urine coloration. Urine Appearance Cloudy(A) 12/21/2018 5:13 AM EDT Urine Specific [place] 1.019 1.005 - 1.030 12/21/2018 5:13 AM EDT Urine pH Dipstick 6.5 6.0 - 8.0 12/21/2018 5:13 AM EDT Urine Leukocyte Esterase Large(A) Negative 12/21/2018 5:13 AM EDT Urine Nitrite Negative Negative 12/21/2018 5:13 AM EDT Urine Protein Dipstick Negative Negative 12/21/2018 5:13 AM EDT Urine Glucose Dipstick Negative Negative 12/21/2018 5:13 AM EDT Urine Ketones Dipstick Negative Negative 12/21/2018 5:13 AM EDT Urine Urobilinogen Dipstick 0.2 0.2 - 1.0 EU/dL 12/21/2018 5:13 AM EDT Urine Bilirubin Dipstick Negative Negative 12/21/2018 5:13 AM EDT Urine Blood Dipstick Large(A) Negative 12/21/2018 5:13 AM EDT 12/21/2018 1:03 AM EDT 12/21/2018 5:08 AM EDT us Sle Historical Provider URINE ORDERABLES Final Result [facility] [address] [phone] documented in this encounter Visit Diagnoses Not on filedocumented in this encounter
--- OUTSIDE RECORDS SUMMARY | 2024-06-26 16:10 | XMS_ITS | Encounter Summary ---
Author Organization [employer] Address [address] [place] [address] Care Team Providers Care Aircraft Inspection Record Clerk Name Role Phone Unavailable Primary Care Provider Unavailabl e Encounter Details Date Type Department Care Team (Late st Contact Info) Description 01/14/2019 Transcribed Document [facility] [place] [facility] [place] [address] ProviderVineet MD [facility] [place] [address] Social History Tobacco [...] Conversion Note - Vineet ProviderMD - 01/14/2019 11:36 AM CDT Admission Data, OB Entered On: 01/14/2019 11:39 EDT Performed On: 01/14/2019 11:36 EDT by DOUGLAS COTTO Advance Directive Patient has Advance Directive *Q : No, patient refuses Advance Directive information DOUGLAS COTTO - 01/14/2019 11:36 EDT Height and Weight Height Source : Measured Height Entry Format : Beatrice Height, Feet : 5 ft(Converted to: 152 cm, 60 Inch) Clinical Height : 172.72 cm Height, Inches : 8 Inch(Converted to: 0 ft 8 Inch, 20.32 cm) Weight Source : Standing scale Weight Entry Format : [place]rice Weight, Pounds : 283 lb Clinical Dosing Weight : 128.64 kg Body Surface Area (BSA) : 2.37 m2 Body Mass Index : 43.1 kg/m2 (>HHI) [place] Body Weight (IBW) : 63.45 kg DOUGLAS COTTO - 01/14/2019 11:36 EDT Health Histories Smoking Status : Never (less than 100 in lifetime; none in last 30 days) Smokeless Tobacco Status : Never DOUGLAS COTTO 01/14/2019 11:36 EDT Social History (As Of: 01/14/2019 11:39:09 EDT) Gestational Age Gestational Age Person Gestational Age At : 188days Method : Comment : Tetanus Immunization Status Previous Tetanus Immunizations : No qualifying data available. Tetanus Immunization : Less than 5 years DOUGLAS COTTO 01/14/2019 11:36 EDT Influenza Vaccine Asmt, Adult Previous Vaccines from Immunization Schedule : No qualifying data available. Influenza Immunization, Current Season : No Inactivated Flu Vaccine Contraindications : No contraindications to inactivated influenza vaccine Transplant Workup/Recent Transplant : No Order for Influenza Vaccine : Declined Vaccination DOUGLAS COTTO 01/14/2019 11:36 EDT Pneumococcal Vaccine Previous Vaccines from Immunization Schedule : No qualifying data available. Pneumonia Immunization Received : No Pneumococcal Risk Assessment < Age 65 : None DOUGLAS COTTO 01/14/2019 11:36 EDT Order Details Transport Mode Order Detail : Ambulatory Isolation Precautions Order Detail : Standard Precautions Order Detail : 1 IV Order Detail : 0 Oxygen Order Detail : 0 Nurse Collect Order Detail : 1 Lift/Transfer : Independent Central Line Order Detail : No Room Service : Appropriate Arterial Line : No DOUGLAS COTTO 01/14/2019 11:36 EDT Vital Measurements Temperature Source : Oral Temperature Mode : Fahrenheit Temperature, Fahrenheit : 98.5 Deg F Clinical Temperature, C : 36.9 Deg C Pulse Method : Non-Invasive BP Device Pulse Source : Brachial, Left Heart Rate, Apical : 78 bpm Pulse Rhythm : Regular Respiratory Rate : 16 Breaths/Min Blood Pressure Location : Arm, left upper Blood Pressure Source : Non-Invasive BP Device Blood Pressure Position : Sitting Systolic Blood Pressure : 126 mmHg Diastolic Blood Pressure : 57 mmHg (LOW) DOUGLAS COTTO 01/14/2019 11:36 EDT Infectious Disease History Infectious Disease History : Chicken pox/Shingles Fever/Chills Last 48 Hours : No Travel To Regions with Travel Advisories : No Travel Outside [place] Within Last 30 Days : No Contact With Traveler to Advisory Region : No Tuberculosis Symptoms : None DOUGLAS COTTO - 01/14/2019 11:36 EDT Electronically signed by [facility] Conversion Shredded Filler Machine Wrapper Layer Cerner at 11/12/2022 2:42 PM CDT documented in this encounter Plan of Treatment Not on file documented as of this encounter Visit Diagnoses Not on filedocumented in this encounter
[2024-06-26 17:01] VITALS: BP 112/78; PULSE 71; RESP 16; TEMP 36.8; O2SAT 99; BMI 41.6
[2024-06-26 17:14] LABS: UTC Strep Screen (Rapid) Negative (Negative)
--- NOTE | 2024-06-26 17:18 | ED_ITS ---
Discharge Plan Disposition Patient Disposition: Home, Self-Care Condition: Good Prescriptions Prescriptions: No Action Ozempic 1 mg/dose (4 mg/3 mL) pen injector 1 mg SQ WEEKLY Patient Comments: INJECT 1 MG UNDER THE SKIN INTO THE APPROPRIATE AREA ONCE A WEEK DIRECTED Referrals Follow up/Referrals: Yogi Abdul [Primary Care Provider] - See instructions Activity Restrictions/Add. Instructions Additional Instructions/Restrictions: *Monitor Temp, Over the counter Motrin or Tylenol as directed/as needed Tylenol every 4 hours and Motrin every 6 hours (as long as your family doctor has told you that you can take it) for fever or pain. and straight to ER if unable to lower temp less than 101.0 after medication given *Warm salt water gargles may help to soothe the throat *Throat Lozenges? *Warm fluids like tea with honey may help to soothe the throat? *Sleep elevated *Humidifier/Vaporizer Your throat swab was sent for culture. Those results are typically sent to your primary care. Be sure to follow up in 2-3 days with your family doctor/primary care physician if no improvement so they can review those result and treat if necessary. If you don?t have a primary care doctor, I recommend you get one but in the mean time, you will have to return to a walk in clinic Follow up IMMEDIATELY for new or worsening symptoms or no Noticeable improvement over the next 48-72 hours. 911 for difficulty breathing or swallowing Clinical Impressions Clinical Impression: Sore throat (viral) Instructions Patient Instructions: Sore Throat Print Language Print Language: Greenlandic Discharge ED Provider: Tamiko Lovelace [facility] HPI General Stated complaint: sore throat Mode of Arrival: Ambulatory Source of Information: Patient Time Seen by Provider: 06/26/24 17:18 Description of Symptoms (Recalled from Triage Doc. by RN): SORE THROAT, MORTON HEENT Symptoms (Recalled from RN notes): Yes Resp Symptoms (Recalled from RN notes): No Skin Symptoms (Recalled from RN notes): No MS Symptoms (Recalled from RN notes): No Functional Status (Recalled from RN notes): WNL History of Present Illness Provider Complaint: Patient states that she has been having sore throat and cough today States that she has been on cough medication and steriods for bronchitis but today her throat was hurting and she was worried that she may have strep throat Related Data Home Medications ?Medication ?Instructions ?Recorded ?Confirmed semaglutide 1 mg/dose (4 mg/3 mL) 1 mg SQ WEEKLY . 08/26/22 06/26/24 subcutaneous pen injector (Ozempic) Allergies Allergy/AdvReac Type Severity Reaction Status Date / Time ciprofloxacin (From Cipro) Allergy Verified 11/30/23 16:42 Sulfa (Sulfonamide Allergy Verified 11/30/23 16:42 Antibiotics) Worker's Comp Is this a Worker's Comp case?: [facility] Disclaimer: The information contained in this section may have been updated after the patient was seen, as this information can be updated by other users. Medical History Anxiety Depression Diabetes mellitus, type 2 Thyroid disease Urinary tract infection Social History Smoking Status: Current every day smoker alcohol intake: never current occupational status: employed Travel in the last 8 weeks: None ROS Obtained: Yes All systems reviewed & no additional complaints except as documented and Yes Systems reviewed as appropriate & no additional complaints except as documented Constitutional Constitutional: Reports system reviewed and no additional complaints, except as documented, Reports as per HPI, Denies body ache, Denies fever(s) and Denies headache(s) ENT Ears, Nose, Mouth, and Throat: Reports system reviewed and no additional complaints, except as documented, Reports as per HPI, Denies headache(s) and Reports sore throat Cardiovascular Cardiovascular: Reports system reviewed and no additional complaints, except as documented and Reports as per HPI Respiratory Respiratory: Reports system reviewed and no additional complaints, except as documented, Reports as per HPI, Denies shortness of breath, Reports cough, Denies pain on inspiration, Denies pain with cough and Denies wheezing Gastrointestinal Gastrointestingal: Reports system reviewed and no additional complaints, except as documented and as per HPI Neurologic Neurologic: Denies headache(s) Allergic/Immunologic Allergic/Immunologic: Denies wheezing Physical Exam General General appearance: alert and in no apparent distress ENT ENT exam: Present mucous membranes moist Expanded ENT Exam Nose exam: Absent sinus tenderness Throat exam: Present tonsillar erythema; Absent tonsillomegaly or tonsillar exud ate Chest Chest inspection: Present normal inspection and symmetric chest wall rise Respiratory Respiratory exam: Present normal lung sounds bilaterally; Absent respiratory distress or wheezes Cardiovascular Cardiovascular exam: Present regular rate, normal rhythm and normal heart sounds Neurological Exam Neurological exam: Present alert, oriented X3 and normal gait Medical Decision Making Medical Records Screening: Per USPSTF and CDC recommendations, given the prevalence of disease in our region, it is our hospital?s policy to screen for HIV and viral Hepatitis for all patients aged 18 and over and those with ongoing risk factors. Jefe Inquiry Pt receiving controlled substance: No Jefe was queried for this patient: No Vital Signs: 06/26/24 17:01 Temperature 98.2 F Temperature Source Oral Pulse Rate [Left Radial] 71 Respiratory Rate 16 Blood Pressure [Left Arm] 112/78 Blood Pressure Mean [Left Arm] 89 02 Sat by Pulse Oximetry 99 Lab Data Lab results reviewed: Yes I reviewed the patient's lab results. Lab Results 06/26/24 16:52: Strep Scn Rapid Clinic Negative Orders (Tests/Meds): ORDERS Category Date Time Status Strep Screen Confirmation Stat Micro 06/26/24 16:52 Received
[2024-06-26 17:29] VITALS: BP 112/78; PULSE 71; RESP 16; TEMP 36.8
== END 2024-06-26 17:29 | disposition home or self-care (01) ==
PROVIDERS: Emergency Provider Nurse Practitioner; PCP Family Medicine
DX: J02.8 Acute pharyngitis due to other specified organisms (principal); J02.9 Acute pharyngitis, unspecified; R51.9 Headache, unspecified
CPT/HCPCS: 87880; 99212; G0381

== ENCOUNTER 2025-02-20 14:09 | Outpatient (CLI) | payer BC, SELFPAY ==
[2025-02-20 14:52] LABS: Coronavirus 19, PCR Not Detected (NotDetected); Influenza A, PCR Not Detected (NotDetected); Influenza B, PCR Not Detected (NotDetected)
--- OUTSIDE RECORDS SUMMARY | 2025-02-21 11:45 | XMS_ITS | Encounter Summary ---
Author Organization [employer] ([place], [place], [place], [place]) Address [address] [place] [address] Care Team Providers Care Patent Drafter Name Role Phone Unavailable Primary Care Provider Unavailabl e Encounter Details Date Type Department Care Team (Late st Contact Info) Description 04/09/2019 Transcribed Document [facility] [place] Family Medicine [address] [place] [address] ProviderVineet MD [address] [place], [place] [id number] Social History Tobacco Use Types Packs/Day Years [...] Policy Numbers : Insurance 1 Health Plan: [facility] Policy Number: [id number] Authorization Number: [id number] Insurance Primary Name : Devonte [id number] Authorization Status-Primary : Admit approved Authorization Fax Number-Primary : [phone] Auth/Referral Phone Number-Primary : Kenyetta [phone] ext [phone] Reference Number-Primary : [id number] Authorization Number-Primary : [id number] Number of Days Authorized-Primary : 3 Authorized Service Begin Date-Primary : 04/03/2019 EDT Authorized Service End Date-Primary : 04/05/2019 EDT Authorization Comments-Primary : Additional clinicals faxed to Kenyetta at [facility] for last day 04-06-19 Historical Authorization Comments-Primary : Comment 1: [place] approved per Marlee for 3 days -- nrd 04/06 (SINDHU LOVETT, RN-Utilization Review 04/05/2019 10:58) Comment 2: Auth initiated and delivery clinicals submitted via [employer] (GUNNAR KEITA, Patricia-Utilization Review 04/05/2019 09:36) Rissa Varela Rn-Utilization Review - 04/09/2019 14:41 EDT Electronically signed by Vladimir [facility] Conversion Butcher Or Smallgoods Maker Cerner at 11/12/2022 2:37 PM CDT documented in this encounter Plan of Treatment Not on file documented as of this encounter Visit Diagnoses Not on filedocumented in this encounter
--- OUTSIDE RECORDS SUMMARY | 2025-02-21 11:45 | XMS_ITS | Clinical Summary ---
Author Organization [employer] ([place], [place], [place], [place]) Address [address] [place] [address] Care Team Providers Care Security Professional Name Role Phone Unavailable Primary Care Provider Unavailabl e Social History Tobacco Use Types Packs/Day Years Used Date Smoking Tobacco: Never Assessed Comments Unknown Sex and Gender Information Value Date Recorded Sex Assigned at Not on file Legal Sex Female 3:37 PM CDT Gender Identity Not on file Sexual Orientation Not on file Plan of Treatment Not on file Insurance [place] [id number] BLUE CROSS/BLUE SHIELD
--- OUTSIDE RECORDS SUMMARY | 2025-02-21 11:45 | XMS_ITS | Encounter Summary ---
Author Organization [employer] ([place], [place], [place], [place]) Address [address] [place] [address] Care Team Providers Care Bellperson Name Role Phone Unavailable Primary Care Provider Unavailabl e Encounter Details Date Type Department Care Team (Late st Contact Info) Description 04/11/2019 Transcribed Document [facility] [place] Family Medicine [address] [place] [address] ProviderVineet MD [address] [place], [place] [id number] Social History Tobacco Use Types Packs/Day Years [...] Policy Numbers : Insurance 1 Health Plan: [facility] Policy Number: [id number] Authorization Number: [id number] Insurance Primary Name : Devonte [id number] Authorization Status-Primary : Admit approved Authorization Fax Number-Primary : [phone] Auth/Referral Phone Number-Primary : Kenyetta [phone] ext [phone] Reference Number-Primary : [id number] Authorization Number-Primary : [id number] Number of Days Authorized-Primary : 4 Authorized Service Begin Date-Primary : 04/03/2019 EDT Authorized Service End Date-Primary : 04/06/2019 EDT Authorization Comments-Primary : Dk Michele at [facility] [employer] covered the laboring days 04/03/19-04/05/19. after delivery falls under federal mandate and no auth required for additional days. Reference number [id number] Historical Authorization Comments-Primary : Comment 1: [place] still pending for 1 more day per [employer] (SINDHU LOVETT, RN-Utilization Review 04/11/2019 09:52) Comment 2: Additional clinicals faxed to Kenyetta at [facility] for last day 04-06-19 (Rissa Varela, Rn-Utilization Review 04/09/2019 14:41) Comment 3: [place] approved per Marlee for 3 days -- nrd 04/06 (SINDHU LOVETT, PATSY-Utilization Review 04/05/2019 10:58) Comment 4: Auth initiated and delivery clinicals submitted via [employer] (GUNNAR KEITA, Patsy-Utilization Review 04/05/2019 09:36) Rsisa Varela, Patsy-Utilization Review - 04/11/2019 10:14 EDT documented in this encounter Plan of Treatment Not on file documented as of this encounter Visit Diagnoses Not on filedocumented in this encounter
--- OUTSIDE RECORDS SUMMARY | 2025-02-21 11:45 | XMS_ITS | Encounter Summary ---
[facility] Address [address] [place] [address] Care Team Providers Care Veterinary Surgery Technician Name Role Phone Yogi Abdul MD Primary Care Provider [phone] Encounter Details Date Type Department Care Team ([facility] Contact Info) Description 04/08/[address] [facility] [address] [place] [address] Martha Grajeda MD [address] [facility] [address] [place] [address] Social History Tobacco Use Types Packs/Day [...] as of this encounter Plan of Treatment Upcoming Encounters Date Type Department Care Team (Late Contact Info) Description 07/09/2025 11:30 AM EST Office Visit [facility] [address] [place] [phone] Martha Grajeda MD [address] [facility] [address] [place] [address] documented as of this encounter Visit Diagnoses Not on filedocumented in this encounter Care Teams Veterinary Surgery Technician Relationship Specialty Start Date End Date Yogi Abdul MD [address] [place] [address] PCP - General Family Medicine 03/06/21 documented as of this encounter
--- OUTSIDE RECORDS SUMMARY | 2025-02-21 11:45 | XMS_ITS | Encounter Summary ---
Author Organization [employer] ([place], [place], [place], [place]) Address [address] [place] [address] Care Team Providers Care Triage Assistant Name Role Phone Unavailable Primary Care Provider Unavailabl e Encounter Details Date Type Department Care Team (Late st Contact Info) Description 04/11/2019 Transcribed Document [facility] [place] [address] [place] [address] ProviderVineet MD [address], [place] [id number] Social History Tobacco Use Types Packs/Day Years Used Date Smoking Tobacco: Never Assessed Comments Unknown Sex and Gender Information Value Date Recorded Sex Assigned at Not on file Legal Sex Female 3:37 PM CDT Gender Identity Not on file Sexual Orientation Not on file documented as of this encounter Miscellaneous Notes * [employer] Conversion Note - Vineet ProviderMD - 04/11/2019 9:52 AM CDT UM Authorization Entered On: 04/11/2019 9:53 EDT Performed On: 04/11/2019 9:52 EDT by SINDHU LOVETT RN-Utilization Review Primary Insurance Authorization Authorization and Policy Numbers : Insurance 1 Health Plan: [facility] Policy Number: [id number] Authorization Number: [id number] Insurance Primary Name : Devonte [id number] Authorization Status-Primary : Admit approved Authorization Fax Number-Primary : [phone] Auth/Referral Phone Number-Primary : Kenyetta [phone] ext [phone] Reference Number-Primary : [id number] Authorization Number-Primary : [id number] Number of Days Authorized-Primary : 3 Authorized Service Begin Date-Primary : 04/03/2019 EDT Authorized Service End Date-Primary : 04/05/2019 EDT Authorization Comments-Primary : [place] [facility] Authorization Comments-Primary : Comment 1: Additional clinicals faxed to Kenyetta at [facility] for last day 04-06-19 (Rissa Varela, Rn-Utilization Review 04/09/2019 14:41) Comment 2: [place] approved per Marlee for 3 days -- nrd 04/06 (SINDHU LOVETT, PATSY-Utilization Review 04/05/2019 10:58) Comment 3: Auth initiated and delivery clinicals submitted via [employer] (GUNNAR KEITA, Rn-Utilization Review 04/05/2019 09:36) SINDHU LOVETT RN-Utilization Review - 04/11/2019 9:52 EDT documented in this encounter Plan of Treatment Not on file documented as of this encounter Visit Diagnoses Not on filedocumented in this encounter
--- OUTSIDE RECORDS SUMMARY | 2025-02-21 11:45 | XMS_ITS | Encounter Summary ---
Author Organization [facility] Address [address] [place] [address] Care Team Providers Care All Terrain Vehicle Technician Name Role Phone Yogi Abdul MD Primary Care Provider [phone] Encounter Details Date Type Department Care Team ([facility] Contact Info) Description 04/08/[address] [facility] [address] [place] [address] Martha Grajeda MD [address] [facility] [address] [place] [address] Social History Tobacco Use Types Packs/Day [...] AM EST Office Visit [facility] [address] [place] [phone] Martha Grajeda MD [address] [facility] [address] [place] [address] documented as of this encounter Visit Diagnoses Not on filedocumented in this encounter Care Teams All Terrain Vehicle Technician Relationship Specialty Start Date End Date Yogi Abdul MD [address] [place] [address] PCP - General Family Medicine 03/06/21 documented as of this encounter
--- OUTSIDE RECORDS SUMMARY | 2025-02-21 11:45 | XMS_ITS | Encounter Summary ---
Author Organization [employer] ([place], [place], [place], [place]) Address [address] [place] [address] Care Team Providers Care Wet Press Tender Name Role Phone Unavailable Primary Care Provider Unavailabl e Encounter Details Date Type Department Care Team (Late st Contact Info) Description 04/07/2019 Transcribed Document [facility] [place] [address] [place] [address] ProviderVineet MD [address] [place], [place] [phone] Social History Tobacco Use Types Packs/Day Years [...] RN Intervention Information: ibuprofen Performed by Vania Gee RN on 04/06/2019 23:41:58 EDT ibuprofen,600mg Oral Pain Assessment Pain Assessment : Follow-up assessment Pain Comment : see OBTV Vania Gee RN - 04/07/2019 7:41 EDT documented in this encounter Plan of Treatment Not on file documented as of this encounter Visit Diagnoses Not on filedocumented in this encounter
--- OUTSIDE RECORDS SUMMARY | 2025-02-21 11:45 | XMS_ITS | Encounter Summary ---
Author Organization [employer] ([place], [place], [place], [place]) Address [address] [place] [address] Care Team Providers Care Reeling Machine Operator Name Role Phone Unavailable Primary Care Provider Unavailabl e Encounter Details Date Type Department Care Team (Late st Contact Info) Description 04/07/2019 Transcribed Document [facility] [place] [address] [place] [address] ProviderVineet MD [address], [place] [phone] Social History Tobacco Use Types Packs/Day Years [...]
--- OUTSIDE RECORDS SUMMARY | 2025-02-21 11:45 | XMS_ITS | Encounter Summary ---
Author Organization [employer] ([place], [place], [place], [place]) Address [address] [place] [address] Care Team Providers Care Wagon Driver Name Role Phone Unavailable Primary Care Provider Unavailabl e Encounter Details Date Type Department Care Team (Late st Contact Info) Description 04/07/2019 Transcribed Document [facility] Family Medicine [address] [place] [address] ProviderVineet MD [address] [place] [address] Social History Tobacco Use Types [...] Fitzgerald MD - 04/07/2019 1:08 PM CDT [place] [id number] PAT MURPHY :1990 Visit Time:04/03/2019 Your Visit Summary Your Care Team Admitting Physician - Cha Osorio, Hoist Operator LAUREN ESCOBAR MD-OBG Attending Physician - Cha Osorio, Hoist Operator LAUREN ESCOBAR MD-OBG Primary Care Physician - KLEBER GREENE (REF)BRANDT Referring Physician - Cha Osorio Hoist Operator LAUREN ESCOBAR MD-OBG Your Diagnosis Spontaneous vaginal [...] Call for follow up appointment Where: [address] [place] [address]- Medications What How Much When Instructions Next Dose ibuprofen (ibuprofen 600 mg oral tablet) 1 Tablet(s) Oral Every 6 Hours Pickup at [facility] 493 04/07 6 pm levothyroxine 50 Microgram(s) Every Day 9/15 AM multivitamin, ( Multivitamins oral tablet) 9/15 AM Pharmacy Information [facility] 493: [address] [phone] Take your medications faithfully. Do NOT skip [...] these instructions at home: Medicines ??? Take cyiy-qhf-jgzgcho and prescription medicines only as told by [...] 11/05/2005 Document Revised: 07/12/2017 Document Reviewed: 07/12/2017 [employer] Patient Education ?? 2019 [employer]. Choosing to breastfeed is one of the [...] or silent sucking, without causing you pain. 's lips should be extended outward (flanged). ??? [...] smacking lips, cooing, sighing, or squeaking. ??? Kgsb-lp-zhjat movements and sucking on fingers or hands. [...] able to be present during feedings. Your production support consultant can help you find a method [...] contact your health care provider or a production support consultant. Overall health care recommendations while ??? [...] provider before taking any medicines. These include kqzv-kkm-rnsclvs and prescription medicines as well as vitamins [...] Talk with your health care provider or production support consultant if you have questions or you face problems as you breastfeed. This information is not intended to replace advice given to you by your health care provider. Make sure you discuss any questions you have with your health care provider. Document Released: 07/11/2006 Document Revised: 08/12/2017 Document Reviewed: 08/12/2017 [employer] Patient Education ?? 2019 [employer] Vaginal Delivery, Care After Refer to [...] these instructions at home: Medicines ??? Take jcha-sqa-ygmxkvh and prescription medicines only as told by [...] 07/08/2001 Document Revised: 12/22/2016 Document Reviewed: 07/25/2016 [employer] Patient Education ?? 2019 [employer]. Choosing to breastfeed is one of the [...] smacking lips, cooing, sighing, or squeaking. ??? Tdha-vq-ykhep movements and sucking on fingers or hands. ??? Fussing or crying. Avoid introducing a pacifier to your baby in the first 4-6 weeks after your baby is born. After this time, you may choose to use a pacifier. Research has shown that pacifier use during the first year of a baby's life decreases the risk of sudden infant syndrome (SIDS). Allow your baby to feed [...] able to be present during feedings. Your production support consultant can help you find a method [...] contact your health care provider or a production support consultant. Overall health care recommendations while ??? [...] provider before taking any medicines. These include orae-ark-xtvovbj and prescription medicines as well as vitamins [...] Talk with your health care provider or production support consultant if you have questions or you face problems as you breastfeed. This information is not intended to replace advice given to you by your health care provider. Make sure you discuss any questions you have with your health care provider. Document Released: 07/11/2006 Document Revised: 08/12/2017 Document Reviewed: 08/12/2017 [employer] Interactive Patient Education ?? 2019 [employer]. ibuprofen (EYE bue PROE fen) Advil, Genpril, IBU, Midol IB, Motrin IB, Proprinal, Smart Sense Children's Ibuprofen What is the most important information I should know about ibuprofen? Ibuprofen can increase your risk of fatal heart attack or stroke, especially if you use it alf or take high doses, or if you [...] or stroke, especially if you use it terminal gauger supervisor or take high doses, or if you [...] may report side effects to FDA at 0-798-DGF-4940. What other drugs will affect ibuprofen? Ask [...] may interact with ibuprofen, including prescription and xohv-zqa-tsaejbp medicines, vitamins, and herbal products. Not all [...] to ensure that the information provided by [employer]. ('[employer]') is accurate, up-to-date, and complete, but no guarantee is made to that effect. Drug information contained herein may be time sensitive. [employer] information has been compiled for use by healthcare practitioners and consumers in the [place] and therefore [employer] does not warrant that uses outside of the [place] are appropriate, unless specifically indicated otherwise. [employer] drug information does not endorse drugs, diagnose patients or recommend therapy. [employer] drug information is an informational resource designed [...] effective or appropriate for any given patient. [employer] does not assume any responsibility for any aspect of healthcare administered with the aid of information [employer] provides. The information contained herein is not intended to cover all possible uses, directions, precautions, warnings, drug interactions, allergic reactions, or adverse effects. If you have questions about the drugs you are taking, check with your doctor, nurse or pharmacist. Copyright 7428-4631 [employer]. Version: 18.01. Revision Date: 10/21/2016. Emergency Awareness [...] Assistance with quitting is available by contacting 7-476-CPEQNOW. This is a free resource providing counseling, support, and referral. Or you may contact your personal physician. [employer] Suicide Prevention Lifeline: The National Suicide Prevention [...] sepsis. Electronically signed by Shereen Gilbert Conversion Health Care Legal Assistant Cerner at 11/12/2022 2:47 PM CDT documented in this encounter Plan of Treatment Not on file documented as of this encounter Visit Diagnoses Not on filedocumented in this encounter
--- OUTSIDE RECORDS SUMMARY | 2025-02-21 11:45 | XMS_ITS | Encounter Summary ---
Author Organization [employer] ([place], [place], [place], [place]) Address [address] [place] [address] Care Team Providers Care Jig Grinder Name Role Phone Unavailable Primary Care Provider Unavailabl e Encounter Details Date Type Department Care Team (Late st Contact Info) Description 04/07/2019 Transcribed Document [facility] [place] [address] [place] [address] ProviderVineet MD [address] [place] [address] Social History Tobacco Use Types [...] these instructions at home: Medicines ??? Take lxri-zzg-syplxub and prescription medicines only as told by [...] 11/05/2005 Document Revised: 07/12/2017 Document Reviewed: 07/12/2017 [employer] Interactive Patient Education ? 2019 [employer]. Choosing to breastfeed is one of the [...] smacking lips, cooing, sighing, or squeaking. ??? Rjzp-kr-vhdou movements and sucking on fingers or hands. [...] able to be present during feedings. Your senior treasury consultant can help you find a method [...] contact your health care provider or a senior treasury consultant. Overall health care recommendations while ??? [...] provider before taking any medicines. These include hldl-whq-dmzmakp and prescription medicines as well as vitamins [...] Talk with your health care provider or senior treasury consultant if you have questions or you face problems as you breastfeed. This information is not intended to replace advice given to you by your health care provider. Make sure you discuss any questions you have with your health care provider. Document Released: 07/11/2006 Document Revised: 08/12/2017 Document Reviewed: 08/12/2017 [employer] Interactive Patient Education ? 2019 [employer]. Choosing to breastfeed is one of [...] to meet your baby?s needs compared to infant formula. ??? Breast milk improves your baby's [...] smacking lips, cooing, sighing, or squeaking. ??? Mxgu-ih-esugz movements and sucking on fingers or hands. [...] able to be present during feedings. Your senior treasury consultant can help you find a method [...] contact your health care provider or a senior treasury consultant. Overall health care recommendations while ??? [...] provider before taking any medicines. These include nvqu-ltj-ivipqif and prescription medicines as well as vitamins [...] Talk with your health care provider or senior treasury consultant if you have questions or you face problems as you breastfeed. This information is not intended to replace advice given to you by your health care provider. Make sure you discuss any questions you have with your health care provider. Document Released: 07/11/2006 Document Revised: 08/12/2017 Document Reviewed: 08/12/2017 [employer] Interactive Patient Education ? 2019 [employer]. Obstetrics and Gynecology Vaginal Delivery, Care [...] these instructions at home: Medicines ??? Take ukcv-ynj-inmmejg and prescription medicines only as told by [...] 07/08/2001 Document Revised: 12/22/2016 Document Reviewed: 07/25/2016 Elsevier Interactive Patient Education ? 2019 [employer]. documented in this encounter Plan of Treatment Not on file documented as of this encounter Visit Diagnoses Not on filedocumented in this encounter
--- OUTSIDE RECORDS SUMMARY | 2025-02-21 11:45 | XMS_ITS | Encounter Summary ---
Author Organization [employer] ([place], [place], [place], [place]) Address [address] [place] [address] Care Team Providers Care Laundry Marker Supervisor Name Role Phone Unavailable Primary Care Provider Unavailabl e Encounter Details Date Type Department Care Team (Late st Contact Info) Description 04/07/2019 Transcribed Document [facility] [place] [address] [place] [address] ProviderVineet MD [address] [place] [address] Social History Tobacco Use Types Packs/Day Years [...] Performed On: 04/07/2019 7:40 EDT by Katherine Santiago Rn Stroke/Warfarin Instructions Stroke/TIA Discharge Ins : N/A Warfarin Discharge Ins : N/A Katherine Santiago Rn - 04/07/2019 7:40 EDT Electronically signed by Shereen Gilbert Conversion Model And Pattern Supervisor Cerner at 11/12/2022 3:02 PM CDT documented in this encounter Plan of Treatment Not on file documented as of this encounter Visit Diagnoses Not on filedocumented in this encounter
--- OUTSIDE RECORDS SUMMARY | 2025-02-21 11:45 | XMS_ITS | Encounter Summary ---
Author Organization [employer] ([place], [place], [place], [place]) Address [address] [place] [address] Care Team Providers Care Cardiology Consultant Name Role Phone Unavailable Primary Care Provider Unavailabl e Encounter Details Date Type Department Care Team (Late st Contact Info) Description 04/07/2019 Transcribed Document [facility] [place] [address] [place] [address] ProviderVineet MD [address] [place], [place] [id number] Social History Tobacco Use Types Packs/Day Years Used Date Smoking Tobacco: Never Assessed Comments Unknown Sex and Gender Information Value Date Recorded Sex Assigned at Not on file Legal Sex Female 3:37 PM CDT Gender Identity Not on file Sexual Orientation Not on file documented as of this encounter Miscellaneous Notes * Cerner Conversion Note - Vineet ProviderMD - 04/07/2019 4:27 PM CDT Nursing Discharge Summary Entered On: 04/07/2019 16:28 EDT Performed On: 04/07/2019 16:27 EDT by KALANI NI, refueling ramp attendant Documentation Discharge Date/Time : 04/07/2019 14:20 EDT Patient Disposition, General : Discharge Discharge To : Home with ambulatory/outpatient follow-up KALANI NI, RN - 04/07/2019 16:27 EDT documented in this encounter Plan of Treatment Not on file documented as of this encounter Visit Diagnoses Not on filedocumented in this encounter
--- OUTSIDE RECORDS SUMMARY | 2025-02-21 11:46 | XMS_ITS | Encounter Summary ---
Author Organization [employer] ([place], [place], [place], [place]) Address [address] [place] [address] Care Team Providers Care Chip Bin Operator Name Role Phone Unavailable Primary Care Provider Unavailabl e Encounter Details Date Type Department Care Team (Late st Contact Info) Description 04/04/2019 Transcribed Document [facility] [place] [address] [place] [address] ProviderVineet MD [address] [place], [place] [id number] Social History Tobacco Use Types Packs/Day Years Used Date Smoking Tobacco: Never Assessed Comments Unknown Sex and Gender Information Value Date Recorded Sex Assigned at Not on file Legal Sex Female 3:37 PM CDT Gender Identity Not on file Sexual Orientation Not on file documented as of this encounter Miscellaneous Notes * Cerner Conversion Note - Historical ProviderMD - 04/04/2019 4:47 PM CDT Patient: [...]
--- OUTSIDE RECORDS SUMMARY | 2025-02-21 11:46 | XMS_ITS | Referral Summary ---
Author Organization [employer] ([place], [place], [place], [place]) Address [address] [place] [address] Care Team Providers Care Road Tester Name Role Phone Unavailable Primary Care Provider Unavailabl e Social History Tobacco Use Types Packs/Day Years Used Date Smoking Tobacco: Never Assessed Comments Unknown Sex and Gender Information Value Date Recorded Sex Assigned at Not on file Legal Sex Female 3:37 PM CDT Gender Identity Not on file Sexual Orientation Not on file Plan of Treatment Not on file Insurance [place] [id number] BLUE CROSS/BLUE SHIELD
--- OUTSIDE RECORDS SUMMARY | 2025-02-21 11:46 | XMS_ITS | Encounter Summary ---
Author Organization [employer] ([place], [place], [place], [place]) Address [address] [place] [address] Care Team Providers Care Dental Tech Name Role Phone Unavailable Primary Care Provider Unavailabl e Encounter Details Date Type Department Care Team (Late st Contact Info) Description 04/07/2019 Transcribed Document [facility] [place] [address] [place] [address] ProviderVineet MD [address] [id number] Social History Tobacco Use Types Packs/Day Years Used Date Smoking Tobacco: Never Assessed Comments Unknown Sex and Gender Information Value Date Recorded Sex Assigned at Not on file Legal Sex Female 3:37 PM CDT Gender Identity Not on file Sexual Orientation Not on file documented as of this encounter Miscellaneous Notes * Cerner Conversion Note - Vineet ProviderMD - 04/07/2019 1:06 PM CDT Patient: PAT MURPHY Age: 29 Years Sex: Female : 1990 Admit Date 04/03/2019 22:16 Discharge Date 04/07/19 No Discharge Date on Record Primary Care Provider KLEBER GREENE (REF[facility] Discharge Diagnosis Spontaneous vaginal delivery 04/06/2019 O80 [...] Labs on Record Electronically signed by Vladimir [facility] Conversion Wood Boring Machine Operator Cerner at 11/12/2022 2:45 PM CDT documented in this encounter Plan of Treatment Not on file documented as of this encounter Visit Diagnoses Not on filedocumented in this encounter
--- OUTSIDE RECORDS SUMMARY | 2025-02-21 11:46 | XMS_ITS | Encounter Summary ---
Author Organization [employer] ([place], [place], [place], [place]) Address [address] [place] [address] Care Team Providers Care Tennis Court Attendant Name Role Phone Unavailable Primary Care Provider Unavailabl e Encounter Details Date Type Department Care Team (Late st Contact Info) Description 04/05/2019 Transcribed Document [facility] [place] Family Medicine [address] [place] [address] ProviderVineet MD [address] [place] [address] Social History Tobacco Use Types [...] Policy Numbers : Insurance 1 Health Plan: [facility] Policy Number: [id number] Authorization Number: Insurance Primary Name : Devonte CHEEMA Authorization Status-Primary : Awaiting callback Reference Number-Primary : [id number] Authorized Service Begin Date-Primary : 04/03/2019 EDT [...]
--- OUTSIDE RECORDS SUMMARY | 2025-02-21 11:46 | XMS_ITS | Encounter Summary ---
Author Organization [employer] ([place], [place], [place], [place]) Address [address] [place] [address] Care Team Providers Care Colors Custodian Name Role Phone Unavailable Primary Care Provider Unavailabl e Encounter Details Date Type Department Care Team (Late st Contact Info) Description 04/04/[address] [facility] [place] [address] [place] [address] ProviderVineet MD [address] [place], [place] [phone] Social History Tobacco Use Types Packs/Day Years [...] in the last 5min or so. VE /-1 fhts 120-130s, moderate variability, +accels, occ variable [...]
--- OUTSIDE RECORDS SUMMARY | 2025-02-21 11:46 | XMS_ITS | Encounter Summary ---
Author Organization [employer] ([place], [place], [place], [place]) Address [address] [place] [address] Care Team Providers Care Real Estate Agency Principal Name Role Phone Unavailable Primary Care Provider Unavailabl e Encounter Details Date Type Department Care Team (Late st Contact Info) Description 03/13/2019 Transcribed Document [facility] [place] Family Medicine [address] [place] [address] ProviderVineet MD [address] [place] [address] Social History Tobacco Use Types Packs/Day Years Used Date Smoking Tobacco: Never Assessed Comments Unknown Sex and Gender Information Value Date Recorded Sex Assigned at Not on file Legal Sex Female 3:37 PM CDT Gender Identity Not on file Sexual Orientation Not on file documented as of this encounter Miscellaneous Notes * Cerner Conversion Note - Vineet ProviderMD - 03/13/2019 11:32 AM CDT Admission Data, OB Entered On: 03/13/2019 11:34 EDT Performed On: 03/13/2019 11:32 EDT by LIZ OG RN Advance Directive Patient has Advance Directive *Q : No, patient refuses Advance Directive information LIZ OG RN - 03/13/2019 11:32 EDT Height and Weight Height Source : Measured Height Entry Format : [place] Height, Feet : 5 ft(Converted to: 152 cm, 60 Inch) Clinical Height : 172.72 cm Height, Inches : 8 Inch(Converted to: 0 ft 8 Inch, 20.32 cm) Weight Source : Standing scale Weight Entry Format : [place] Weight, Pounds : 297 lb Clinical Dosing Weight : 135 kg Body Surface Area (BSA) : 2.42 m2 Body Mass Index : 45.3 kg/m2 (>HHI) [place] Body Weight (IBW) : 63.45 kg LIZ [...]
--- OUTSIDE RECORDS SUMMARY | 2025-02-21 11:46 | XMS_ITS | Encounter Summary ---
Author Organization [employer] ([place], [place], [place], [place]) Address [address] [place] [address] Care Team Providers Care Receiving Supervisor Name Role Phone Unavailable Primary Care Provider Unavailabl e Encounter Details Date Type Department Care Team (Late st Contact Info) Description 02/08/2019 Transcribed Document [facility] [place] [address] [place] [address] ProviderVineet MD [address] [place] [address] Social History Tobacco Use Types Packs/Day Years Used Date Smoking Tobacco: Never Assessed Comments Unknown Sex and Gender Information Value Date Recorded Sex Assigned at Not on file Legal Sex Female 3:37 PM CDT Gender Identity Not on file Sexual Orientation Not on file documented as of this encounter Miscellaneous Notes * Cerner Conversion Note - Vineet ProviderMD - 02/08/2019 12:44 PM CDT Admission Data, OB Entered On: 02/08/2019 12:45 EDT Performed On: 02/08/2019 12:44 EDT by TERESA WASHINGTON RN Advance Directive Patient has Advance Directive *Q : No, patient refuses Advance Directive information TERESA WASHINGTON RN - 02/08/2019 12:44 EDT Height and Weight Height Source : Stated Height Entry Format : [place] Height, Feet : 5 ft(Converted to: 152 cm, 60 Inch) Clinical Height : 172.72 cm Height, Inches : 8 Inch(Converted to: 0 ft 8 Inch, 20.32 cm) Weight Source : Standing scale Weight Entry Format : [place] Weight, Pounds : 284 lb Clinical Dosing Weight : 129.09 kg Body Surface Area (BSA) : 2.37 m2 Body Mass Index : 43.3 kg/m2 (>HHI) [place] Body Weight (IBW) : 63.45 kg TERESA [...]
--- OUTSIDE RECORDS SUMMARY | 2025-02-21 11:46 | XMS_ITS | Encounter Summary ---
Author Organization [employer] ([place], [place], [place], [place]) Address [address] [place] [address] Care Team Providers Care Sewing Machine Bobbin Winder Name Role Phone Unavailable Primary Care Provider Unavailabl e Encounter Details Date Type Department Care Team (Late st Contact Info) Description 11/02/2018 Transcribed Document [facility] [place] [address] [place] [address] ProviderVineet MD [address] [place] [address] Social History Tobacco Use Types Packs/Day Years [...] 11/02/2018 20:46 EDT Electronically signed by Vladimir [facility] Conversion Balancer Scale Cerner at 11/12/2022 2:59 PM CDT documented in this encounter Plan of Treatment Not on file documented as of this encounter Visit Diagnoses Not on filedocumented in this encounter
--- OUTSIDE RECORDS SUMMARY | 2025-02-21 11:46 | XMS_ITS | Encounter Summary ---
Author Organization [employer] ([place], [place], [place], [place]) Address [address] [place] [address] Care Team Providers Care Accounts Payable Administrator Name Role Phone Unavailable Primary Care Provider Unavailabl e Encounter Details Date Type Department Care Team (Late st Contact Info) Description 03/29/2019 Transcribed Document [facility] Family Medicine [address] [place] [address] ProviderVineet MD [address] [place] [address] Social History Tobacco Use Types [...] 03/29/2019 20:41 EDT Electronically signed by Vladimir [facility] Conversion Egg Caser Juanita at 11/12/2022 2:49 PM CDT documented in this encounter Plan of Treatment Not on file documented as of this encounter Visit Diagnoses Not on filedocumented in this encounter
--- OUTSIDE RECORDS SUMMARY | 2025-02-21 11:46 | XMS_ITS | Encounter Summary ---
Author Organization [employer] ([place], [place], [place], [place]) Address [address] [place] [address] Care Team Providers Care Network Technician Name Role Phone Unavailable Primary Care Provider Unavailabl e Encounter Details Date Type Department Care Team (Late st Contact Info) Description 11/02/2018 Transcribed Document [facility] [place] Family [place] [address] [place] [address] ProviderVineet MD [address] [place] [address] Social History Tobacco Use Types [...] Fitzgerald MD - 11/02/2018 8:47 PM CDT [place] [id number] PAT MURPHY SERGIO :1990 Visit Time:11/02/2018 Your [...] 3 to 5 days Where: [address] [place] [address]- Business (1) Medications What How Much When [...] 06/29/2010 Document Revised: 02/16/2017 Document Reviewed: 02/07/2014 [employer] Interactive Patient Education ?? 2017 [employer]. Emergency Awareness and Preventative Care STROKE is [...] Assistance with quitting is available by contacting 8-702-LLIY-NOW. This is a free resource providing counseling, [...] Be sure to sign up for the [facility] patient portal, which gives you 14/02 access to your medical information ??? including these discharge instructions ??? using your computer, smartphone, or tablet. Just go to Social Pulse to get started. Questions? Call . Test [...] ) Urine Bilirubin Dipstick: Negative Urine Specific [place]: 1.011 -- Normal range between ( 1.005 [...] was given the opportunity to ask questions. Patient/Telephone Instrument Supervisor Name: Patient/Telephone Instrument Supervisor Signature: Relationship to Patient: Clinician/Hospital Telephone Instrument Supervisor Signature: Date: documented in this encounter Plan of Treatment Not on file documented as of this encounter Visit Diagnoses Not on filedocumented in this encounter
--- OUTSIDE RECORDS SUMMARY | 2025-02-21 11:46 | XMS_ITS | Encounter Summary ---
Author Organization [employer] ([place], [place], [place], [place]) Address [address] [place] [address] Care Team Providers Care Global Cmo Name Role Phone Unavailable Primary Care Provider Unavailabl e Encounter Details Date Type Department Care Team (Late st Contact Info) Description 11/02/2018 Transcribed Document [facility] [place] [address] [place] [address] ProviderVineet MD [address] [place] [address] Social History Tobacco Use Types [...] 02/07/2014 Elsevier Interactive Patient Education ? 2017 [employer] documented in this encounter Plan of Treatment Not on file documented as of this encounter Visit Diagnoses Not on filedocumented in this encounter
--- OUTSIDE RECORDS SUMMARY | 2025-02-21 11:46 | XMS_ITS | Encounter Summary ---
Author Organization [employer] ([place], [place], [place], [place]) Address [address] [place] [address] Care Team Providers Care Supervisor Commissary Production Name Role Phone Unavailable Primary Care Provider Unavailabl e Encounter Details Date Type Department Care Team (Late st Contact Info) Description 04/05/2019 Transcribed Document [facility] [place] [address] [place] [address] ProviderVineet MD [address] [place], [place] [phone] Social History Tobacco Use Types Packs/Day Years Used Date Smoking Tobacco: Never Assessed Comments Unknown Sex and Gender Information Value Date Recorded Sex Assigned at Not on file Legal Sex Female 3:37 PM CDT Gender Identity Not on file Sexual Orientation Not on file documented as of this encounter Miscellaneous Notes * Cerner Conversion Note - Vineet ProviderMD - 04/05/2019 6:00 PM CDT Pain Assessment [...]
--- OUTSIDE RECORDS SUMMARY | 2025-02-21 11:46 | XMS_ITS | Clinical Summary ---
Author Organization [facility] Address [address] [place] [address] Care Team Providers Care Preschool Disability Teacher Name Role Phone Yogi Abdul MD Primary Care Provider [phone] Allergies Active Allergy Reactions Criticality Noted Date [...] Per Week. 3 mL 11 4 Active Continuous Glucose Sensor (Dexcom G7 Sensor) misc USE DIRECTED EVERY 10 DAYS 3 each 1 5 Active Active Problems Problem Noted Date Diagnosed [...] today. Microalbumin ordered today. Encouraged yearly eye jvfh-mb-or-date per patient. LDL at goal. Encourage continued efforts towards weight loss. Encounters Date Type Department Care Team Description 12/28/2024 Prior Authorization [facility] [address] [place] [address] Michelle Gee 12/28/2024 Refill [facility] [address] [place] [address] Martha Grajeda MD 12/14/2024 Telephone [facility] [address] [place] [address] Martha Grajeda MD MEDICATION SWITCH from Last 3 Months Family History Medical History Relation Name Comments [...] 79 02/14/2024 9:01 AM EDT Temperature 35.9 C (96.7 F) 01/05/2022 8:54 AM EDT Respiratory Rate 18 07/24/2019 1:15 PM EST Oxygen Saturation 99% 02/14/2024 9:01 AM EDT Inhaled Oxygen Concentration - - Weight 109 kg (240 lb) 02/14/2024 9:01 AM EDT Height 170.2 cm (5' 7 ) 02/14/2024 9:01 AM EDT Body Mass Index 37.59 02/14/2024 9:01 AM EDT Plan of Treatment Upcoming Encounters Date Type Department Care Team (Late st Contact Info) Description 07/09/2025 11:30 AM EST Office Visit [facility] [address] [place] [address] Martha Grajeda MD [address] [place] [address] Health Maintenance Due Date Last Done Comments Annual Gynecologic Pelvic an d Breast Exam 1988 DIABETIC EYE EXAM 1998 Hepatitis B (1 of 3 - 19+ 3- dose series) 2007 Pneumococcal Vaccine 0-49 (1 of 2 - PCV) 2007 PAP SMEAR 2009 ANNUAL PHYSICAL 04/08/2017 HEPATITIS C SCREENING 04/08/2017 URINE MICROALBUMIN-CREATININ E RATIO (uACR) 06/11/2023 06/11/2022 COVID-19 Vaccine (3 - 2023-2 5 season) 2024 01/02/2021, 12/05/2020 HEMOGLOBIN A1C 07/17/2024 01/16/2024, 06/25, 06/30/2022, Additional history exists DIABETIC FOOT EXAM 01/15/2025 01/16/2024, 0 01/16/2024, 01/16/2024 INFLUENZA VACCINE 04/24/2025 06/11/2022 TDAP/TD VACCINES (3 - Td or Tdap) 04/06/2029 019, 11/15/2014 Procedures Procedure Name Priority Date/Time Associated Diagnosis Comments POCT GLYCOSYLATED HEMOGLOBIN (HGB A1C) Routine 01/16/2024 9:06 AM EDT Type 2 diabetes mellitus with hypoglycemia without coma, with long-term current use of insulin MICROALBUMIN / CREATININE URINE RATIO Routine 06/11/2022 9:58 AM EST from Last 3 Months or Most Recently Relevant to Health Maintenance Results * POC Glycosylated Hemoglobin (Hb A1C) (01/16/2024 9:06 AM EDT) Hemoglobin A1C 5.6 4.5 - 5.7 % [facility] Lot Number [id number] [facility] Expiration Date 10/09/25 [facility] Blood 01/16/2024 9:06 AM EDT Tamiko Gracia PA-C POINT OF CARE TEST ORDERABLES Final Result [facility]
[address] [place] [address], * Microalbumin / Creatinine Urine Ratio - (06/11/2022 9:58 AM EST) Creatinine, Urine 31.0 Not Estab. mg/dL [facility] Microalbumin, Urine <3.0 Not Estab. ug/mL [facility] Comment:Verified by repeat analysis Microalbumin/Cre atinine Ratio <10 0 - 29 mg/g creat [facility] Comment: Normal: 0 - 29 Moderately increased: 30 - 300 Severely increased: >300 06/11/2022 9:58 AM EST 06/11/2022 Narrative [facility]) - 06/16/2022 12:36 PM EST Performed at: 01 - [address] [id number] Attendance Clerk: Reg Singh PhD, Phone: [phone] Martha Naik MD URINE ORDERABLES Final Result [facility]) [address] [place] [address], [place] [phone] [facility] [address] [place] [address], from Last 3 Months or Most Recently Relevant to Health Maintenance Insurance [facility] CROSS BLUE SHIELD PPO Care Teams Preschool Disability Teacher Relationship Specialty Start Date End Date Yogi Abdul MD [address] [place] [address] PCP - General Family Medicine 03/06/21
--- OUTSIDE RECORDS SUMMARY | 2025-02-21 11:46 | XMS_ITS | Encounter Summary ---
Author Organization [employer] ([place], [place], [place], [place]) Address [address] [place] [address] Care Team Providers Care Extracorporeal Technician Name Role Phone Unavailable Primary Care Provider Unavailabl e Encounter Details Date Type Department Care Team (Late st Contact Info) Description 03/13/2019 Transcribed Document [facility] [place] [address] [place] [address] ProviderVineet MD [address] [place] [address] Social History Tobacco Use Types [...] way to hosp. good movement. needs to quill picking machine operator kids from school. Discharge Date beautifully reactive Primary Care Provider KLEBER GREENE (REF)MD-[facility] Discharge Diagnosis No Diagnosis on Record Procedures nst Reason for Hospitalization extended monitoring for nonreactive nst. no decels noted Vital Signs T: 37.1 ??C HR: 88 RR: 18 BP: 97/50 HT: 172.72 cm WT: 135 kg BMI: 45.3 Oxygen Settings (Last) No qualifying data available. Physical Exam abd; gravid, +fm reactive nst d/c home - stable Discharge Follow Up Cha Osorio, Technical Operator - Within 2 to 3 days Discharge [...]
--- OUTSIDE RECORDS SUMMARY | 2025-02-21 11:46 | XMS_ITS | Encounter Summary ---
Author Organization [employer] ([place], [place], [place], [place]) Address [address] [place] [address] Care Team Providers Care Tool And Die Designer Name Role Phone Unavailable Primary Care Provider Unavailabl e Encounter Details Date Type Department Care Team (Late st Contact Info) Description 04/06/2019 Transcribed Document [facility] [place] [address] [place] [address] ProviderVineet MD [address] [place] [address] Social History Tobacco Use Types [...] Historical ProviderMD - 04/06/2019 8:05 PM CDT Gas Attendant Details Entered On: 04/06/2019 20:06 EDT Performed [...]
--- OUTSIDE RECORDS SUMMARY | 2025-02-21 11:46 | XMS_ITS | Encounter Summary ---
Author Organization [employer] ([place], [place], [place], [place]) Address [address] [place] [address] Care Team Providers Care Draw Frame Tender Name Role Phone Unavailable Primary Care Provider Unavailabl e Encounter Details Date Type Department Care Team (Late st Contact Info) Description 03/13/2019 Transcribed Document [facility] [place] Medicine [address] [place] [address] ProviderVineet MD [address] [place] [address] Social History Tobacco Use Types Packs/Day Years Used Date Smoking Tobacco: Never Assessed Comments Unknown Sex and Gender Information Value Date Recorded Sex Assigned at Not on file Legal Sex Female 3:37 PM CDT Gender Identity Not on file Sexual Orientation Not on file documented as of this encounter Miscellaneous Notes * Cerner Conversion Note - Vineet ProviderMD - 03/13/2019 1:49 PM CDT Stroke/Warfarin Instructions Entered On: 03/13/2019 13:49 EDT Performed On: 03/13/2019 13:49 EDT by LIZ OG RN Stroke/Warfarin Instructions Stroke/TIA Discharge Ins : N/A Warfarin Discharge Ins : N/A LIZ OG RN - 03/13/2019 13:49 EDT documented in this encounter Plan of Treatment Not on file documented as of this encounter Visit Diagnoses Not on filedocumented in this encounter
--- OUTSIDE RECORDS SUMMARY | 2025-02-21 11:46 | XMS_ITS | Encounter Summary ---
Author Organization [employer] ([place], [place], [place], [place]) Address [address] [place] [address] Care Team Providers Care Telephone Solicitor Name Role Phone Unavailable Primary Care Provider Unavailabl e Encounter Details Date Type Department Care Team (Late st Contact Info) Description 01/27/2019 Transcribed Document [facility] [place] Family Medicine [address] [place] [address] ProviderVineet MD [address] [place] [address] Social History Tobacco Use Types [...] Fitzgerald MD - 01/27/2019 9:31 [place] [address] PAT MURPHY SERGIO :1990 Visit Time:01/27/2019 Your Visit Summary Your Care Team Admitting Physician - LAUREN ESCOBAR MD-OBG Attending Physician - LAUREN ESCOBAR MD-OBG Primary Care Physician - KLEBER GREENE (REF)MD-[facility] Referring Physician - LAUREN ESCOBAR [...] Comments Emergency Follow-up Care: Return to the [facility] Obstetrics Emergency Department (MELANIE) for any increase [...] patient or her family/partner/friends. Where: [address] Business (1) Medications What How Much When [...] Follow these instructions at home: ??? Take qiad-vrk-afrgvkv and prescription medicines only as told by [...] 12/27/2008 Document Revised: 01/03/2018 Document Reviewed: 05/31/2016 OurVinyl Interactive Patient Education ?? 2019 [employer]. nitrofurantoin (SUJIT troglory DE LUNA toin) Furadantin, Macrobid, Macrodantin What [...] electrolyte imbalance or vitamin B deficiency; ?? yrqplkf-0-iyerpmwbn dehydrogenase (G6PD) deficiency; or ?? any type [...] may report side effects to FDA at 0-794-JRB-7281. What other drugs will affect nitrofurantoin? Other drugs may interact with nitrofurantoin, including prescription and htlk-bsx-gtxhmuf medicines, vitamins, and herbal products. Tell each [...] to ensure that the information provided by [employer]. ('[employer]') is accurate, up-to-date, and complete, but no guarantee is made to that effect. Drug information contained herein may be time sensitive. [employer] information has been compiled for use by healthcare practitioners and consumers in the [place] and therefore [employer] does not warrant that uses outside of the [place] are appropriate, unless specifically indicated otherwise. [employer]'s drug information does not endorse drugs, diagnose patients or recommend therapy. [employer]'s drug information is an informational resource designed [...] effective or appropriate for any given patient. [facility] does not assume any responsibility for any aspect of healthcare administered with the aid of information [facility] provides. The information contained herein is not intended to cover all possible uses, directions, precautions, warnings, drug interactions, allergic reactions, or adverse effects. If you have questions about the drugs you are taking, check with your doctor, nurse or pharmacist. Copyright 2378-8587 [facility]. Version: 8.01. Revision Date: 10/02/2013. Emergency Awareness [...] Assistance with quitting is available by contacting 6-501-FMXS-NOW. This is a free resource providing counseling, [...] range between ( 1.0 and 7.0 ) [place] #: 1.04 K/uL -- Normal range between ( 0.24 and 0.82 ) Eos #: 0.19 K/uL -- Normal range between ( 0.04 and 0.54 ) [place] %: 7.5 % -- Normal range between [...] ) Urine Bilirubin Dipstick: Negative Urine Specific [place]: 1.020 -- Normal range between ( 1.005 [...] or 3 Tri Sgl 1st Gest Patient Name:ERLIN PAT SERGIO I have received and understand this information and was given the opportunity to ask questions. Patient/Executive Housekeeper Name: Patient/Executive Housekeeper Signature: Relationship to Patient: Clinician/Hospital Executive Housekeeper Signature: Date: documented in this encounter Plan of Treatment Not on file documented as of this encounter Visit Diagnoses Not on filedocumented in this encounter
--- OUTSIDE RECORDS SUMMARY | 2025-02-21 11:46 | XMS_ITS | Encounter Summary ---
Author Organization [employer] ([place], [place], [place], [place]) Address [address] [place] [address] Care Team Providers Care Musical Engineer Name Role Phone Unavailable Primary Care Provider Unavailabl e Encounter Details Date Type Department Care Team (Late st Contact Info) Description 01/27/2019 Transcribed Document [facility] [place] [address] [place] [address] ProviderVineet MD [address], [place] [id number] Social History Tobacco Use Types Packs/Day Years Used Date Smoking Tobacco: Never Assessed Comments Unknown Sex and Gender Information Value Date Recorded Sex Assigned at Not on file Legal Sex Female 3:37 PM CDT Gender Identity Not on file Sexual Orientation Not on file documented as of this encounter Miscellaneous Notes * Cerner Conversion Note - Vineet ProviderMD - 01/27/2019 9:30 PM CDT Nursing Discharge [...] Angie Fuchs RN - 01/27/2019 21:30 EDT Electronically signed by Vladimir [facility] Conversion Director Of Global Sales Cerner at 11/12/2022 2:53 PM CDT documented in this encounter Plan of Treatment Not on file documented as of this encounter Visit Diagnoses Not on filedocumented in this encounter
--- OUTSIDE RECORDS SUMMARY | 2025-02-21 11:46 | XMS_ITS | Encounter Summary ---
Author Organization [employer] ([place], [place], [place], [place]) Address [address] [place] [address] Care Team Providers Care Boring Machine Operator Horizontal Name Role Phone Unavailable Primary Care Provider Unavailabl e Encounter Details Date Type Department Care Team (Late st Contact Info) Description 04/05/2019 Transcribed Document [facility] [place] [address] [place] [address] ProviderVineet MD [address] [id number] Social History Tobacco Use Types Packs/Day Years [...] MD - 04/05/2019 12:02 PM CDT Patient: APT MURPHY Age: 29 Years Sex: Female : [...] for 6 week visit: Yes(_)/No(_) Infant Data (_) NICU (_) Medications Inpatient Adacel (Tdap), [...] Q12H, PRN Dermoplast 20% topical spray, 1 Hyden, Topical, Q4H, PRN Habitrol 14 mg/24 hr [...]
--- OUTSIDE RECORDS SUMMARY | 2025-02-21 11:46 | XMS_ITS | Encounter Summary ---
Author Organization [employer] ([place], [place], [place], [place]) Address [address] [place] [address] Care Team Providers Care Scientific Glass Blower Name Role Phone Unavailable Primary Care Provider Unavailabl e Encounter Details Date Type Department Care Team (Late st Contact Info) Description 03/13/[address] [facility] [place] Family Medicine [address] [place] [address] ProviderVineet MD [address] [place] [address] Social History Tobacco Use Types [...] Fitzgerald MD - 03/13/2019 2:50 PM CDT [place] [id number] PAT MURPHY :1990 Visit Time:03/13/2019 Your Visit Summary Your Care Team Admitting Physician - LAUREN ESCOBAR MD-OBG Attending Physician - LAUREN ESCOBAR MD-OBG Primary Care Physician - KLEBER GREENE (REF)MD-[facility] Referring Physician - LAUREN ESCOBAR MD-OBG [...] as tolerated Follow-Up Appointments Follow Up with Osorio, Cha, Flask Cleaner When Within 2 to 3 days Where: [address] [employer] [address] [place] [phone]- Medications What How Much When Instructions [...] with twins or multiples. ??? Are of Romanian-Tristanian, -Romanian, /, or / descent. What are the [...] be managed by a specialist called an insole and outsole splitter. This condition is treated by following instructions [...] Follow these instructions at home: ??? Take mgsd-osa-puzdqcj and prescription medicines only as told by [...] Do I need to meet with a mangle catcher? Where can I find a support group [...] For more information about diabetes, visit: ? [place] Diabetes Association (ADA): www.diabetes.org ? [place] Association of Diabetes Educators (AADE): www.diabeteseducator.org/patient-resources Contact [...] 10/17/2001 Document Revised: 12/16/2016 Document Reviewed: 08/13/2016 [employer] Interactive Patient Education ?? 2018 [employer] Blood Glucose Monitoring, Adult Monitoring your [...] 07/13/2004 Document Revised: 01/28/2017 Document Reviewed: 12/20/2016 ElseSentiment Interactive Patient Education ?? 2017 [employer] Movement Counts Patient Name: Patient Due [...] 08/10/2007 Document Revised: 03/09/2017 Document Reviewed: 08/19/2016 [employer] Interactive Patient Education ?? 2019 [employer]. Emergency Awareness and Preventative Care STROKE is [...] Assistance with quitting is available by contacting 5-847-NLWALyrically [employer]. This is a free resource providing counseling, [...] Creatinine, Toxicology: 110.1 mg/dL Patient Name:PAT MURPHY SERGIO I have received and understand this information and was given the opportunity to ask questions. Patient/Compacting Machine Operator/Tender Name: Patient/Compacting Machine Operator/Tender Signature: Relationship to Patient: Clinician/Hospital Compacting Machine Operator/Tender Signature: Date: Electronically signed by Vladimir, [facility] Conversion Psychologist Industrial Organizational Cerner at 11/12/2022 2:50 PM CDT documented in this encounter Plan of Treatment Not on file documented as of this encounter Visit Diagnoses Not on filedocumented in this encounter
--- OUTSIDE RECORDS SUMMARY | 2025-02-21 11:46 | XMS_ITS | Encounter Summary ---
Author Organization [employer] ([place], [place], [place], [place]) Address [address] [place] [address] Care Team Providers Care Mat Worker Name Role Phone Unavailable Primary Care Provider Unavailabl e Encounter Details Date Type Department Care Team (Late st Contact Info) Description 04/05/2019 Transcribed Document [facility] [place] [address] [place] [address] ProviderVineet MD [address] [place], [place] [id number] Social History Tobacco Use Types Packs/Day Years Used Date Smoking Tobacco: Never Assessed Comments Unknown Sex and Gender Information Value Date Recorded Sex Assigned at Not on file Legal Sex Female 3:37 PM CDT Gender Identity Not on file Sexual Orientation Not on file documented as of this encounter Miscellaneous Notes * Cerner Conversion Note - Vineet ProviderMD - 04/05/2019 12:00 PM CDT Pain Assessment [...]
--- OUTSIDE RECORDS SUMMARY | 2025-02-21 11:46 | XMS_ITS | Encounter Summary ---
Author Organization [employer] ([place], [place], [place], [place]) Address [address] [place] [address] Care Team Providers Care Customer Order Clerk Name Role Phone Unavailable Primary Care Provider Unavailabl e Encounter Details Date Type Department Care Team (Late st Contact Info) Description 11/02/2018 Transcribed Document [facility] [place] [address] [place] [address] ProviderVineet MD [address] [place] [address] Social History Tobacco Use Types Packs/Day Years Used Date Smoking Tobacco: Never Assessed Comments Unknown Sex and Gender Information Value Date Recorded Sex Assigned at Not on file Legal Sex Female 3:37 PM CDT Gender Identity Not on file Sexual Orientation Not on file documented as of this encounter Miscellaneous Notes * Cerner Conversion Note - Vineet ProviderMD - 11/02/2018 7:38 PM CDT Admission Data, OB Entered On: 11/02/2018 19:39 EDT Performed On: 11/02/2018 19:38 EDT by JAMIL BRAR RN Advance Directive Patient has Advance Directive *Q : No, patient refuses Advance Directive information JAMIL BRAR RN - 11/02/2018 19:38 EDT Height and Weight Height Source : Measured Height Entry Format : [place] Height, Feet : 5 ft(Converted to: 152 cm, 60 Inch) Clinical Height : 172.72 cm Height, Inches : 8 Inch(Converted to: 0 ft 8 Inch, 20.32 cm) Weight Source : Standing scale Weight Entry Format : [place] Weight, Pounds : 273 lb Clinical Dosing Weight : 124.09 kg Body Surface Area (BSA) : 2.33 m2 Body Mass Index : 41.6 kg/m2 (>HHI) [place] Body Weight (IBW) : 63.45 kg JAMIL [...] Season : Outside of influenza season JAMIL BARR RN - 11/02/2018 19:38 EDT Pneumococcal Vaccine [...] Diastolic Blood Pressure : 50 mmHg (LOW) JAMIL BRAR RN - 11/02/2018 19:38 EDT Infectious [...]
--- OUTSIDE RECORDS SUMMARY | 2025-02-21 11:46 | XMS_ITS | Encounter Summary ---
Author Organization [employer] ([place], [place], [place], [place]) Address [address] [place] [address] Care Team Providers Care Helicopter Utility Aircrewman Name Role Phone Unavailable Primary Care Provider Unavailabl e Encounter Details Date Type Department Care Team (Late st Contact Info) Description 04/07/2019 Transcribed Document [facility] [place] [address] [place] [address] ProviderVineet MD [address] [place], [place] [id number] Social History Tobacco Use Types Packs/Day Years [...] Vania Gee RN - 04/07/2019 7:41 EDT Electronically signed by Vladimir [facility] Conversion Communication And Outreach Manager Cerner at 11/12/2022 2:42 PM CDT documented in this encounter Plan of Treatment Not on file documented as of this encounter Visit Diagnoses Not on filedocumented in this encounter
--- OUTSIDE RECORDS SUMMARY | 2025-02-21 11:46 | XMS_ITS | Encounter Summary ---
Author Organization [employer] ([place], [place], [place], [place]) Address [address] [place] [address] Care Team Providers Care Nurse Wound Care Name Role Phone Unavailable Primary Care Provider Unavailabl e Encounter Details Date Type Department Care Team (Late st Contact Info) Description 02/08/2019 Transcribed Document [facility] [place] [address] [place] [address] ProviderVineet MD [address] [place] [address] Social History Tobacco Use Types [...] these instructions at home: Medicines ??? Take oxmi-tep-naxvlox and prescription medicines only as told by [...] 10/05/2010 Document Revised: 08/16/2017 Document Reviewed: 08/16/2017 Slyce Interactive Patient Education ? 2019 [employer] documented in this encounter Plan of Treatment Not on file documented as of this encounter Visit Diagnoses Not on filedocumented in this encounter
--- OUTSIDE RECORDS SUMMARY | 2025-02-21 11:46 | XMS_ITS | Encounter Summary ---
Author Organization [employer] ([place], [place], [place], [place]) Address [address] [place] [address] Care Team Providers Care It Applications Analyst Name Role Phone Unavailable Primary Care Provider Unavailabl e Encounter Details Date Type Department Care Team (Late st Contact Info) Description 01/27/2019 Transcribed Document [facility] [place] Family [place] [address] [place] [address] ProviderVineet MD [address] [place] [address] Social History Tobacco Use Types [...] Follow these instructions at home: ??? Take rvhm-bes-uwjsrgz and prescription medicines only as told by [...] 12/27/2008 Document Revised: 01/03/2018 Document Reviewed: 05/31/2016 [employer] Interactive Patient Education ? 2019 [employer] documented in this encounter Plan of Treatment Not on file documented as of this encounter Visit Diagnoses Not on filedocumented in this encounter
--- OUTSIDE RECORDS SUMMARY | 2025-02-21 11:46 | XMS_ITS | Encounter Summary ---
Author Organization [employer] ([place], [place], [place], [place]) Address [address] [place] [address] Care Team Providers Care Tailings Worker Name Role Phone Unavailable Primary Care Provider Unavailabl e Encounter Details Date Type Department Care Team (Late st Contact Info) Description 03/27/2019 Transcribed Document [facility] [place] Family Medicine [address] [place] [address] ProviderVineet MD [address] [place] [address] Social History Tobacco Use Types Packs/Day Years Used Date Smoking Tobacco: Never Assessed Comments Unknown Sex and Gender Information Value Date Recorded Sex Assigned at Not on file Legal Sex Female 3:37 PM CDT Gender Identity Not on file Sexual Orientation Not on file documented as of this encounter Miscellaneous Notes * Cerner Conversion Note - Vineet ProviderMD - 03/27/2019 1:09 PM CDT Admission Data, OB Entered On: 03/27/2019 13:12 EDT Performed On: 03/27/2019 13:09 EDT by PAPITO FREEMAN RN Advance Directive Patient has Advance Directive *Q : No, patient requests information about Advance Directive PAPITO FREEMAN RN - 03/27/2019 13:09 EDT Height and Weight Height Source : Stated Height Entry Format : [place] Height, Feet : 5 ft(Converted to: 152 cm, 60 Inch) Clinical Height : 172.72 cm Height, Inches : 8 Inch(Converted to: 0 ft 8 Inch, 20.32 cm) Weight Source : Standing scale Weight Entry Format : [place] Weight, Pounds : 305 lb Clinical Dosing Weight : 138.64 kg Body Surface Area (BSA) : 2.45 m2 Body Mass Index : 46.5 kg/m2 (>HHI) [place] Body Weight (IBW) : 63.45 kg PAPITO [...]
--- OUTSIDE RECORDS SUMMARY | 2025-02-21 11:46 | XMS_ITS | Encounter Summary ---
Author Organization [employer] ([place], [place], [place], [place]) Address [address] [place] [address] Care Team Providers Care Loan Representative Name Role Phone Unavailable Primary Care Provider Unavailabl e Encounter Details Date Type Department Care Team (Late st Contact Info) Description 04/04/2019 Transcribed Document [facility] [place] [address] [place] [address] ProviderVineet MD [address] [place] [address] Social History Tobacco Use Types [...] qualifying data Social History Document (if any) Cultural/Evangelical beliefs that would affect medical care: Lab Results APR 03 23:57 137 107 12 / H 128 3.6 21 0.62 \ Electronic Monitoring 140s, mod variability, +accels, occ variable decel with quick return to baseline Electronically signed by Shereen Gilbert Conversion Electrical Maintenance Engineer Cerner at 11/12/2022 2:49 PM CDT documented in this encounter Plan of Treatment Not on file documented as of this encounter Visit Diagnoses Not on filedocumented in this encounter
--- OUTSIDE RECORDS SUMMARY | 2025-02-21 11:46 | XMS_ITS | Encounter Summary ---
Author Organization [employer] ([place], [place], [place], [place]) Address [address] [place] [address] Care Team Providers Care Electric Motor Repair Supervisor Name Role Phone Unavailable Primary Care Provider Unavailabl e Encounter Details Date Type Department Care Team (Late st Contact Info) Description 02/08/2019 Transcribed Document [facility] [place] [address] [place] [address] ProviderVineet MD [address] [place] [address] Social History Tobacco Use Types [...] Fitzgerald MD - 02/08/2019 2:10 PM CDT [place] [id number] PAT MURPHY :1990 Visit Time:02/08/2019 Your Visit Summary Your Care Team Admitting Physician - LAUREN ESCOBAR MD-OBG Attending Physician - LAUREN ESCOBAR MD-OBG Primary Care Physician - KLEBER GREENE (REF)MD-[facility] Referring Physician - LAUREN ESCOBAR MD-OBG [...] these instructions at home: Medicines ??? Take cumx-aor-oakqhmj and prescription medicines only as told by [...] 10/05/2010 Document Revised: 08/16/2017 Document Reviewed: 08/16/2017 Heidi [employer] Interactive Patient Education ?? 2019 [employer] Emergency Awareness and Preventative Care STROKE [...] Assistance with quitting is available by contacting 2-199-SZJK-NOW. This is a free resource providing counseling, [...] Laboratory or Other Results This Visit Patient Name:ERLIN PATSAMMI HILL I have received and understand this information and was given the opportunity to ask questions. Patient/Dinkey Engineer Name: Patient/Dinkey Engineer Signature: Relationship to Patient: Clinician/Hospital Dinkey Engineer Signature: Date: documented in this encounter Plan of Treatment Not on file documented as of this encounter Visit Diagnoses Not on filedocumented in this encounter
--- OUTSIDE RECORDS SUMMARY | 2025-02-21 11:46 | XMS_ITS | Encounter Summary ---
[facility] Organization [facility] Address [address] [place] [address] Care Team Providers Care Process Owner Name Role Phone Yogi Abdul MD Primary Care Provider [phone] Reason for Visit * Reason Comments Med Refill Encounter Details Date Type Department Care Team (Late st Contact Info) Description 12/28/2024 Refill [facility] END[facility]CR[facility]Y [address] [place] [phone] Martha Grajeda MD [address] [place], [place] [id number] Social History Tobacco Use Types Packs/Day Years [...] Description 07/09/2025 11:30 AM EST Office Visit [facility] END[facility] [address] [phone] Martha Grajeda MD [address] [address] documented as of this encounter Visit Diagnoses Not on filedocumented in this encounter Care Teams Process Owner Relationship Specialty Start Date End Date Yogi Abdul MD [address] [place] [address] PCP - General Family Medicine 03/06/21 documented as of this encounter
--- OUTSIDE RECORDS SUMMARY | 2025-02-21 11:46 | XMS_ITS | Encounter Summary ---
Author Organization [employer] ([place], [place], [place], [place]) Address [address] [place] [address] Care Team Providers Care Meter Calibrator Name Role Phone Unavailable Primary Care Provider Unavailabl e Encounter Details Date Type Department Care Team (Late st Contact Info) Description 12/21/2018 Transcribed Document [facility] [place] [address] [place] [address] ProviderVineet MD [address] [place] [address] Social History Tobacco Use Types [...] Source : Chart Height Entry Format : [place] Height, Feet : 5 ft(Converted to: 152 cm, 60 Inch) Clinical Height : 172.72 cm Height, Inches : 8 Inch(Converted to: 0 ft 8 Inch, 20.32 cm) Weight Source : Standing scale Weight Entry Format : [place] Weight, Pounds : 280 lb Clinical Dosing Weight : 127.27 kg Body Surface Area (BSA) : 2.36 m2 Body Mass Index : 42.7 kg/m2 (>HHI) [place] Body Weight (IBW) : 63.45 kg Aline [...]
--- OUTSIDE RECORDS SUMMARY | 2025-02-21 11:46 | XMS_ITS | Encounter Summary ---
Author Organization [employer] ([place], [place], [place], [place]) Address [address] [place] [address] Care Team Providers Care Employee Development Specialist Name Role Phone Unavailable Primary Care Provider Unavailabl e Encounter Details Date Type Department Care Team (Late st Contact Info) Description 03/29/2019 Transcribed Document [facility] [place] [address] [place] [address] ProviderVineet MD [address] [place] [address] Social History Tobacco Use Types Packs/Day Years Used Date Smoking Tobacco: Never Assessed Comments Unknown Sex and Gender Information Value Date Recorded Sex Assigned at Not on file Legal Sex Female 3:37 PM CDT Gender Identity Not on file Sexual Orientation Not on file documented as of this encounter Miscellaneous Notes * Cerner Conversion Note - Vineet ProviderMD - 03/29/2019 8:18 PM CDT Admission Data, OB Entered On: 03/29/2019 20:20 EDT Performed On: 03/29/2019 20:18 EDT by Ania Zamorano Rn Advance Directive Patient has Advance Directive *Q : No, patient refuses Advance Directive information Ania Zamorano Rn - 03/29/2019 20:18 EDT Height and Weight Height Source : Stated Height Entry Format : [place] Height, Feet : 5 ft(Converted to: 152 cm, 60 Inch) Clinical Height : 172.72 cm Height, Inches : 8 Inch(Converted to: 0 ft 8 Inch, 20.32 cm) Weight Source : Standing scale Weight Entry Format : [place] Weight, Pounds : 305 lb Clinical Dosing Weight : 138.64 kg Body Surface Area (BSA) : 2.45 m2 Body Mass Index : 46.5 kg/m2 (>HHI) [place] Body Weight (IBW) : 63.45 kg Ania [...]
--- OUTSIDE RECORDS SUMMARY | 2025-02-21 11:46 | XMS_ITS | Encounter Summary ---
[facility] Organization [facility] Address [address] [place] [address] Care Team Providers Care Machine Quilt Stuffer Name Role Phone Yogi Abdul MD Primary Care Provider [phone] Encounter Details Date Type Department Care Team (Late st Contact Info) Description 12/28/2024 Prior Authorization [facility] [address] [facility] [address] [place] [address] Michelle Gee Social History Tobacco Use Types Packs/Day [...] * Telephone Encounter - Michelle Gee - 12/28/2024 11:44 AM EDTSummary: [place] APPROVED OZEMPIC 2MG Pat Murphy (Ocampo: [id number]) Rx #: [id number] Ozempic (2 MG/DOSE) 8MG/3ML pen-injectors Form [employer] Electronic PA Form (2017 [facility]) Created 1 hour ago Sent to Plan Determination Request Not Sent This PA has been accessed, but not sent to the plan. Please fill out the required pradhan below and click Send to Plan. * Telephone Encounter - Michelle Gee - 12/28/2024 11:42 AM EDT PA SUBMITTED VIA CMM FOR OZEMPIC 2MG documented in this encounter Plan of Treatment Upcoming Encounters Date Type Department Care Team ([facility] Contact Info) Description 07/09/2025 11:30 AM EST Office Visit [facility] [address] [facility] [address] [place] [address] Martha Grajeda MD [address] [facility] [address] [place] [address] documented as of this encounter Visit Diagnoses Not on filedocumented in this encounter Care Teams Machine Quilt Stuffer Relationship Specialty Start Date End Date Yogi Abdul MD [address] [place] [address] PCP - General Family Medicine 03/06/21 documented as of this encounter
--- OUTSIDE RECORDS SUMMARY | 2025-02-21 11:46 | XMS_ITS | Encounter Summary ---
Author Organization [employer] ([place], [place], [place], [place]) Address [address] [place] [address] Care Team Providers Care Activities Coordinator Name Role Phone Unavailable Primary Care Provider Unavailabl e Encounter Details Date Type Department Care Team (Late st Contact Info) Description 03/29/2019 Transcribed Document [facility] [place] [address] [place] [address] ProviderVineet MD [address], [place] [id number] Social History Tobacco Use Types Packs/Day Years [...] and canola oil. ??? Meet with a fast food worker (dietitian). He or she can help you [...] exams as told by your doctor. ??? [place] your teeth and gums two times a day. Floss one or more times a day. ??? Go to the dentist one or more times every 6 months. ??? Stay at a healthy weight during your . General instructions ??? Take srql-azm-empblso and prescription medicines only as told by [...] Do I need to meet with a staff educator? Where can I find a support group for people with diabetes? Where to find more information To learn more about diabetes, visit: ??? [place] Diabetes Association: www.diabetes.org ??? [place] Association of Diabetes Educators (AADE): www.diabeteseducator.org Summary [...] 11/01/2016 Document Revised: 02/28/2018 Document Reviewed: 08/13/2016 [employer]oma Interactive Patient Education ? 2019 [employer]. Third Trimester of The third trimester is from week 28 through week 40 (months 7 through 9). This trimester is when your unborn baby (fetus) is growing very fast. At the end of the ninth month, the unborn baby is about 20 inches in length. It weighs about 6?10 pounds. Follow these instructions at home: Medicines ??? Take vcko-jqf-krrusqg and prescription medicines only as told by [...] Interactive Patient Education ? 2019 Elsevier Inc. Electronically signed by Shereen Gilbert Conversion Supervisor Chassis Assembly Cerner at 11/12/2022 2:55 PM CDT documented in this encounter Plan of Treatment Not on file documented as of this encounter Visit Diagnoses Not on filedocumented in this encounter
--- OUTSIDE RECORDS SUMMARY | 2025-02-21 11:46 | XMS_ITS | Encounter Summary ---
Author Organization [employer] ([place], [place], [place], [place]) Address [address] [place] [address] Care Team Providers Care Roof Truss Builder Name Role Phone Unavailable Primary Care Provider Unavailabl e Encounter Details Date Type Department Care Team (Late st Contact Info) Description 12/21/2018 Transcribed Document [facility] [place] [address] [place] [address] ProviderVineet MD [address], [place] [id number] Social History Tobacco Use Types Packs/Day Years Used Date Smoking Tobacco: Never Assessed Comments Unknown Sex and Gender Information Value Date Recorded Sex Assigned at Not on file Legal Sex Female 3:37 PM CDT Gender Identity Not on file Sexual Orientation Not on file documented as of this encounter Miscellaneous Notes * Cerner Conversion Note - Vineet ProviderMD - 12/21/2018 2:11 AM CDT Nursing [...]
--- OUTSIDE RECORDS SUMMARY | 2025-02-21 11:46 | XMS_ITS | Encounter Summary ---
Author Organization [employer] ([place], [place], [place], [place]) Address [address] [place] [address] Care Team Providers Care Paving Stone Installer Name Role Phone Unavailable Primary Care Provider Unavailabl e Encounter Details Date Type Department Care Team (Late st Contact Info) Description 03/27/2019 Transcribed Document [facility] Family Medicine [address] [place] [address] ProviderVineet MD [address] [place] [address] Social History Tobacco Use Types Packs/Day Years Used Date Smoking Tobacco: Never Assessed Comments Unknown Sex and Gender Information Value Date Recorded Sex Assigned at Not on file Legal Sex Female 3:37 PM CDT Gender Identity Not on file Sexual Orientation Not on file documented as of this encounter Miscellaneous Notes * Cerner Conversion Note - Historical ProviderMD - 03/27/2019 2:32 PM CDT Nursing [...]
--- OUTSIDE RECORDS SUMMARY | 2025-02-21 11:46 | XMS_ITS | Encounter Summary ---
Author Organization [employer] ([place], [place], [place], [place]) Address [address] [place] [address] Care Team Providers Care Slope Runner Name Role Phone Unavailable Primary Care Provider Unavailabl e Encounter Details Date Type Department Care Team (Late st Contact Info) Description 04/05/2019 Transcribed Document [facility] [place] [address] [place] [address] ProviderVineet MD [address] [id number] Social History Tobacco Use Types Packs/Day Years [...] Policy Numbers : Insurance 1 Health Plan: [facility] Policy Number: [id number] Authorization Number: Insurance Primary Name : Devonte [id number] Authorization Status-Primary : Admit approved Reference Number-Primary : [id number] Authorization Number-Primary : [id number] Number of Days Authorized-Primary : 3 Authorized Service Begin Date-Primary : 04/03/2019 EDT Authorized Service End Date-Primary : 04/05/2019 EDT Authorization Comments-Primary : Devonte approved per Marlee for 3 days -- nrd 04/06 Historical Authorization Comments-Primary : Comment 1: Auth initiated and delivery clinicals submitted via [employer] (KEITA, GUNNAR, Rn-Utilization Review 04/05/2019 09:36) SINDHU LOVETT RN-Utilization Review - 04/05/2019 10:58 EDT documented in this encounter Plan of Treatment Not on file documented as of this encounter Visit Diagnoses Not on filedocumented in this encounter
--- OUTSIDE RECORDS SUMMARY | 2025-02-21 11:46 | XMS_ITS | Encounter Summary ---
Author Organization [employer] ([place], [place], [place], [place]) Address [address] [place] [address] Care Team Providers Care Car Cleaning Supervisor Name Role Phone Unavailable Primary Care Provider Unavailabl e Encounter Details Date Type Department Care Team (Late st Contact Info) Description 04/05/2019 Transcribed Document [facility] [place] [address] [place] [address] ProviderVineet MD [address] [place] [address] Social History Tobacco Use Types Packs/Day Years Used Date Smoking Tobacco: Never Assessed Comments Unknown Sex and Gender Information Value Date Recorded Sex Assigned at Not on file Legal Sex Female 3:37 PM CDT Gender Identity Not on file Sexual Orientation Not on file documented as of this encounter Miscellaneous Notes * Cerner Conversion Note - Vineet ProviderMD - 04/05/2019 1:11 AM CDT Patient: PAT KERN Age: 29 Years Sex: Female : 1990 Normal spontaneous delivery of a live male over an intact perineum. APGARS 8/9, placed on maternal abdomen. Nuchal cord x [...] and baby are stable; kangaroo care initiated. documented in this encounter Plan of Treatment Not on file documented as of this encounter Visit Diagnoses Not on filedocumented in this encounter
--- OUTSIDE RECORDS SUMMARY | 2025-02-21 11:46 | XMS_ITS | Encounter Summary ---
Author Organization [employer] ([place], [place], [place], [place]) Address [address] [place] [address] Care Team Providers Care Receptionist Doctor'S Office Name Role Phone Unavailable Primary Care Provider Unavailabl e Encounter Details Date Type Department Care Team (Late st Contact Info) Description 03/29/2019 Transcribed Document [facility] [place] [address] [place] [address] ProviderVineet MD [address] [place] [address] Social History Tobacco Use Types [...] Fitzgerald MD - 03/29/2019 8:46 PM CDT [place] [id number] PAT MURPHY SERGIO :1990 Visit Time:03/29/2019 Your Visit Summary Your Care Team Admitting Physician - LAUREN ESCOBAR MD-OBG Attending Physician - LAUREN ESCOBAR MD-OBG Primary Care Physician - LAUREN ESCOBAR MD-OBG Referring Physician - LAUREN ESCOBAR [...] keep previously scheduled appointment. Where: [address] Medications What How Much When Instructions Next [...] and canola oil. ??? Meet with a outside food server (dietitian). He or she can help you [...] exams as told by your doctor. ??? [place] your teeth and gums two times a day. Floss one or more times a day. ??? Go to the dentist one or more times every 6 months. ??? Stay at a healthy weight during your . General instructions ??? Take hdgj-erk-vhxpqow and prescription medicines only as told by [...] Do I need to meet with a consumer educator? Where can I find a support group for people with diabetes? Where to find more information To learn more about diabetes, visit: ??? [place] Diabetes Association: www.diabetes.org ??? [place] Association of Diabetes Educators (AADE): www.diabeteseducator.org Summary [...] 11/01/2016 Document Revised: 02/28/2018 Document Reviewed: 08/13/2016 [employer]Cart Shopping Cart Software Interactive Patient Education ?? 2019 [employer] Inc[employer] Third Trimester of The third trimester is from week 28 through week 40 (months 7 through 9). This trimester is when your unborn baby (fetus) is growing very fast. At the end of the ninth month, the unborn baby is about 20 inches in length. It weighs about 6???10 pounds. Follow these instructions at home: Medicines ??? Take ritn-pht-zxoqdpb and prescription medicines only as told by [...] 10/05/2010 Document Revised: 08/16/2017 Document Reviewed: 08/16/2017 [employer] Interactive Patient Education ?? 2019 [employer] Shopping Cart [employer] Inc[employer] Movement Counts Patient Name: Patient Due [...] Assistance with quitting is available by contacting 9-015-JFQLNOW. This is a free resource providing counseling, support, and referral. Or you may contact your personal physician. [place] Suicide Prevention Lifeline: The National Suicide Prevention [...] 70 and 110 ) Patient Name:PAT MURPHY SERGIO I have received and understand this information and was given the opportunity to ask questions. Patient/Permastone Mechanic Name: Patient/Permastone Mechanic Signature: Relationship to Patient: Clinician/Hospital Permastone Mechanic Signature: Date: Electronically signed by Vladimir, [facility] Conversion Retort Load Expediter Juanita at 11/12/2022 2:44 PM CDT documented in this encounter Plan of Treatment Not on file documented as of this encounter Visit Diagnoses Not on filedocumented in this encounter
--- OUTSIDE RECORDS SUMMARY | 2025-02-21 11:46 | XMS_ITS | Encounter Summary ---
Author Organization [employer] ([place], [place], [place], [place]) Address [address] [place] [address] Care Team Providers Care Sports Information Director Name Role Phone Unavailable Primary Care Provider Unavailabl e Encounter Details Date Type Department Care Team (Late st Contact Info) Description 01/14/2019 Transcribed Document [facility] [place] [address] [place] [address] ProviderVineet MD [address] [place] [address] Social History Tobacco Use Types [...] Fitzgerald MD - 01/14/2019 12:35 PM CDT [place] [id number] PAT MURPHY SERGIO :1990 Visit Time:01/14/2019 Your Visit Summary Your Care Team Admitting Physician - LAUREN ESCOBAR MD-OBG Attending Physician - LAUREN ESCOBAR MD-OBG Primary Care Physician - KLE[facility] GREENE [facility]REF[facility] Referring Physician - LAUREN ESCOBAR MD-OBG [...] LAUREN ESCOBAR MD When Where: [address] [place], [place] [id number]- Medications What How Much When Instructions Next [...] these instructions at home: Medicines ??? Take dwbp-rpc-lhtdpee and prescription medicines only as told by [...] 10/05/2010 Document Revised: 08/16/2017 Document Reviewed: 08/16/2017 Casmul Interactive Patient Education ?? 2019 Casmul Inc. Emergency Awareness and Preventative Care STROKE [...] Assistance with quitting is available by contacting 9-074-YIJJ-NOW. This is a free resource providing counseling, [...] Be sure to sign up for the [facility] patient portal, which gives you 14/02 access to your medical information ??? including these discharge instructions ??? using your computer, smartphone, or tablet. Just go to [employer] to get started. Questions? Call . Test [...] ) Urine Bilirubin Dipstick: Negative Urine Specific [place]: 1.020 -- Normal range between ( 1.005 and 1.030 ) Urine Type.: U CleanCatch Patient Name:PAT MURPHY SERGIO I have received and understand this information and was given the opportunity to ask questions. Patient/Cable Worker Helper Name: Patient/Cable Worker Helper Signature: Relationship to Patient: Clinician/Hospital Cable Worker Helper Signature: Date: documented in this encounter Plan of Treatment Not on file documented as of this encounter Visit Diagnoses Not on filedocumented in this encounter
--- OUTSIDE RECORDS SUMMARY | 2025-02-21 11:46 | XMS_ITS | Encounter Summary ---
Author Organization [employer] ([place], [place], [place], [place]) Address [address] [place] [address] Care Team Providers Care Polisher Aluminum Name Role Phone Unavailable Primary Care Provider Unavailabl e Encounter Details Date Type Department Care Team (Late st Contact Info) Description 04/05/2019 Transcribed Document [facility] [place] [address] [place] [address] ProviderVineet MD [address] [place], [place] [phone] Social History Tobacco Use Types Packs/Day Years Used Date Smoking Tobacco: Never Assessed Comments Unknown Sex and Gender Information Value Date Recorded Sex Assigned at Not on file Legal Sex Female 3:37 PM CDT Gender Identity Not on file Sexual Orientation Not on file documented as of this encounter Miscellaneous Notes * Cerner Conversion Note - Vineet ProviderMD - 04/05/2019 5:00 PM CDT Chart Check - Review Order Profile Entered On: 04/05/2019 18:21 EDT Performed On: 04/05/2019 17:00 EDT by SINDHU MCCOY RN Chart Check Powerplans Initiated/Discontinued as Appropriate : Yes All Active Orders Reviewed : Yes Chart Reviewed With : SINDHU MCCOY RN YURT, DONNA, RN - 04/05/2019 18:20 EDT Electronically signed by Shereen Gilbert Conversion Oracle Applications Developer Cerner at 11/12/2022 2:38 PM CDT documented in this encounter Plan of Treatment Not on file documented as of this encounter Visit Diagnoses Not on filedocumented in this encounter
--- OUTSIDE RECORDS SUMMARY | 2025-02-21 11:46 | XMS_ITS | Encounter Summary ---
Author Organization [employer] ([place], [place], [place], [place]) Address [address] [place] [address] Care Team Providers Care Bulb Brander Name Role Phone Unavailable Primary Care Provider Unavailabl e Encounter Details Date Type Department Care Team (Late st Contact Info) Description 04/04/2019 Transcribed Document [facility] [place] [address] [place] [address] ProviderVineet MD [address] [place], [place] [phone] Social History Tobacco Use Types Packs/Day Years [...]
--- OUTSIDE RECORDS SUMMARY | 2025-02-21 11:46 | XMS_ITS | Encounter Summary ---
Author Organization [employer] ([place], [place], [place], [place]) Address [address] [place] [address] Care Team Providers Care Medical Scientific Liaison Name Role Phone Unavailable Primary Care Provider Unavailabl e Encounter Details Date Type Department Care Team (Late st Contact Info) Description 04/06/2019 Transcribed Document [facility] [place] [address] [place] [address] ProviderVineet MD [address] [place], [place] [phone] Social History Tobacco Use Types Packs/Day Years Used Date Smoking Tobacco: Never Assessed Comments Unknown Sex and Gender Information Value Date Recorded Sex Assigned at Not on file Legal Sex Female 3:37 PM CDT Gender Identity Not on file Sexual Orientation Not on file documented as of this encounter Miscellaneous Notes * Cerner Conversion Note - Vineet ProviderMD - 04/06/2019 9:30 AM CDT Final Discharge Planning Entered On: 04/06/2019 9:31 EDT Performed On: 04/06/2019 9:30 EDT by NATALI KAPADIA SW Final Discharge Planning Discharge Arrangements : Patient Post-Acute Information Patient Name: PAT MURPHY Gender: Female : [birth year] Age: 29 Years No Post-Acute Placement(s) Listed No Post-Acute Service(s) Listed No [place] Referral(s) Listed Discharge To Care Management : Home/Residential/Skilled Nursing or Self Care -01 NATALI KAPADIA SW - 04/06/2019 9:30 EDT documented in this encounter Plan of Treatment Not on file documented as of this encounter Visit Diagnoses Not on filedocumented in this encounter
--- OUTSIDE RECORDS SUMMARY | 2025-02-21 11:46 | XMS_ITS | Encounter Summary ---
Author Organization [employer] ([place], [place], [place], [place]) Address [address] [place] [address] Care Team Providers Care Litharge Supervisor Name Role Phone Unavailable Primary Care Provider Unavailabl e Encounter Details Date Type Department Care Team (Late st Contact Info) Description 02/08/2019 Transcribed Document [facility] [place] [address] [place] [address] ProviderVineet MD [address], [place] [id number] Social History Tobacco Use Types Packs/Day Years Used Date Smoking Tobacco: Never Assessed Comments Unknown Sex and Gender Information Value Date Recorded Sex Assigned at Not on file Legal Sex Female 3:37 PM CDT Gender Identity Not on file Sexual Orientation Not on file documented as of this encounter Miscellaneous Notes * Cerner Conversion Note - Vineet ProviderMD - 02/08/2019 2:08 PM CDT Nursing Discharge Summary Entered On: 02/08/2019 14:10 EDT Performed On: 02/08/2019 14:08 EDT by Alberto Peña, transmission maintenance supervisor Documentation Discharge Date/Time : 02/08/2019 14:15 EDT [...] 02/08/2019 14:08 EDT Electronically signed by Vladimir [facility] Conversion Manager Sql Cerner at 11/12/2022 2:53 PM CDT documented in this encounter Plan of Treatment Not on file documented as of this encounter Visit Diagnoses Not on filedocumented in this encounter
--- OUTSIDE RECORDS SUMMARY | 2025-02-21 11:46 | XMS_ITS | Encounter Summary ---
Author Organization [employer] ([place], [place], [place], [place]) Address [address] [place] [address] Care Team Providers Care Solar Engineer Name Role Phone Unavailable Primary Care Provider Unavailabl e Encounter Details Date Type Department Care Team (Late st Contact Info) Description 04/04/2019 Transcribed Document [facility] [place] [address] [place] [address] ProviderVineet MD [address] [place] [address] Social History Tobacco Use Types Packs/Day Years Used Date Smoking Tobacco: Never Assessed Comments Unknown Sex and Gender Information Value Date Recorded Sex Assigned at Not on file Legal Sex Female 3:37 PM CDT Gender Identity Not on file Sexual Orientation Not on file documented as of this encounter Miscellaneous Notes * Cerner Conversion Note - Vineet ProviderMD - 04/04/2019 12:04 AM CDT Admission Data, OB Entered On: 04/04/2019 0:06 EDT Performed On: 04/04/2019 0:04 EDT by Dafne Marquez RN Advance Directive Patient has Advance Directive *Q : No, patient refuses Advance Directive information Dafne Marquez RN - 04/04/2019 0:04 EDT Height and Weight Height Source : Stated Height Entry Format : [place] Height, Feet : 5 ft(Converted to: 152 cm, 60 Inch) Clinical Height : 172.72 cm Height, Inches : 8 Inch(Converted to: 0 ft 8 Inch, 20.32 cm) Weight Source : Standing scale Weight Entry Format : [place] Weight, Pounds : 305 lb Clinical Dosing Weight : 138.64 kg Body Surface Area (BSA) : 2.45 m2 Body Mass Index : 46.5 kg/m2 (>HHI) [place] Body Weight (IBW) : 63.45 kg Dafne [...]
--- OUTSIDE RECORDS SUMMARY | 2025-02-21 11:46 | XMS_ITS | Encounter Summary ---
Author Organization [employer] ([place], [place], [place], [place]) Address [address] [place] [address] Care Team Providers Care Tetryl Wringer Operator Name Role Phone Unavailable Primary Care Provider Unavailabl e Encounter Details Date Type Department Care Team (Late st Contact Info) Description 01/27/2019 Transcribed Document [facility] [place] [address] [place] [address] ProviderVineet MD [address] [place] [address] Social History Tobacco Use [...] Source : Stated Height Entry Format : [place] Height, Feet : 5 ft(Converted to: 152 cm, 60 Inch) Clinical Height : 172.72 cm Height, Inches : 8 Inch(Converted to: 0 ft 8 Inch, 20.32 cm) Weight Source : Standing scale Weight Entry Format : Grand Weight, Pounds : 284 lb Clinical Dosing Weight : 129.09 kg Body Surface Area (BSA) : 2.37 m2 Body Mass Index : 43.3 kg/m2 (>HHI) [place] Body Weight (IBW) : 63.45 kg Angie [...]
--- OUTSIDE RECORDS SUMMARY | 2025-02-21 11:46 | XMS_ITS | Encounter Summary ---
Author Organization [employer] ([place], [place], [place], [place]) Address [address] [place] [address] Care Team Providers Care Broom Worker Name Role Phone Unavailable Primary Care Provider Unavailabl e Encounter Details Date Type Department Care Team (Late st Contact Info) Description 02/08/2019 Transcribed Document [facility] [place] [address] [place] [address] ProviderVineet MD [address] [place] [address] Social History Tobacco Use Types Packs/Day Years [...] 02/08/2019 14:08 EDT Electronically signed by Vladimir [facility] Conversion Sleeve Wheel Maker Cerner at 11/12/2022 2:44 PM CDT documented in this encounter Plan of Treatment Not on file documented as of this encounter Visit Diagnoses Not on filedocumented in this encounter
--- OUTSIDE RECORDS SUMMARY | 2025-02-21 11:46 | XMS_ITS | Encounter Summary ---
Author Organization [employer] ([place], [place], [place], [place]) Address [address] [place] [address] Care Team Providers Care Biomaterials Engineer Name Role Phone Unavailable Primary Care Provider Unavailabl e Encounter Details Date Type Department Care Team (Late st Contact Info) Description 04/06/2019 Transcribed Document [facility] [place] [address] [place] [address] ProviderVineet MD [address] [id number] Social History Tobacco Use Types Packs/Day Years [...] Date 04-06-19 Primary Care Provider KLEBER GREENE (REF)MD-[facility] Discharge Diagnosis Procedures del and care Reason [...] Precautions Pending Labs No Labs on Record documented in this encounter Plan of Treatment Not on file documented as of this encounter Visit Diagnoses Not on filedocumented in this encounter
--- OUTSIDE RECORDS SUMMARY | 2025-02-21 11:46 | XMS_ITS | Encounter Summary ---
Author Organization [employer] ([place], [place], [place], [place]) Address [address] [place] [address] Care Team Providers Care Laborer Powerhouse Name Role Phone Unavailable Primary Care Provider Unavailabl e Encounter Details Date Type Department Care Team (Late st Contact Info) Description 03/27/2019 Transcribed Document [facility] [place] [address] [place] [address] ProviderVineet MD [address] [place] [address] Social History Tobacco Use Types [...] Fitzgerald MD - 03/27/2019 2:34 PM CDT [place] [id number] PAT MURPHY SERGIO :1990 Visit Time:03/27/2019 Your Visit Summary Your Care Team Admitting Physician - LAUREN ESCOBAR MD-OBG Attending Physician - LAUREN ESCOBAR MD-OBG Primary Care Physician - KLEBER GREENE (REF)MD-[facility] Referring Physician - LAUREN SECOBAR MD-OBG Discharge Vitals Temperature 36.8 ??C Respiratory [...] these instructions at home: Medicines ??? Take bffe-wjy-oyqghps and prescription medicines only as told by [...] 10/05/2010 Document Revised: 08/16/2017 Document Reviewed: 08/16/2017 FwdHealth Interactive Patient Education ?? 2019 [employer]. Gestational Diabetes Mellitus, Diagnosis Gestational diabetes (gestational [...] Do I need to meet with a clinical educator? ? What equipment will I need to care for myself at home? ? What medicines do I need? When should I take them? ? How often do I need to check my blood sugar? ? What number can I call if I have questions? ? When is my next doctor's visit? General instructions ??? Take tjgu-uit-dakmmep and prescription medicines only as told by [...] 11/01/2016 Document Revised: 03/06/2018 Document Reviewed: 08/13/2016 FwdHealth Interactive Patient Education ?? 2019 [employer]. Emergency Awareness and Preventative Care STROKE is [...] Assistance with quitting is available by contacting 6-404-CANW-NOW. This is a free resource providing counseling, [...] ) Urine Bilirubin Dipstick: Negative Urine Specific [place]: 1.017 -- Normal range between ( 1.005 [...] Creatinine, Toxicology: 84.4 mg/dL Patient Name:PAT MURPHY I have received and understand this information and was given the opportunity to ask questions. Patient/Ed Manager Name: Patient/Ed Manager Signature: Relationship to Patient: Clinician/Hospital Ed Manager Signature: Date: Electronically signed by Vladimir, [facility] Conversion Supervisor Garage Juanita at 11/12/2022 2:34 PM CDT documented in this encounter Plan of Treatment Not on file documented as of this encounter Visit Diagnoses Not on filedocumented in this encounter
--- OUTSIDE RECORDS SUMMARY | 2025-02-21 11:46 | XMS_ITS | Encounter Summary ---
Author Organization [employer] ([place], [place], [place], [place]) Address [address] [place] [address] Care Team Providers Care Pasting Inspector Name Role Phone Unavailable Primary Care Provider Unavailabl e Encounter Details Date Type Department Care Team (Late st Contact Info) Description 01/14/2019 Transcribed Document [facility] [place] [address] [place] [address] ProviderVineet MD [address] [place] [address] Social History Tobacco Use Types Packs/Day Years Used Date Smoking Tobacco: Never Assessed Comments Unknown Sex and Gender Information Value Date Recorded Sex Assigned at Not on file Legal Sex Female 3:37 PM CDT Gender Identity Not on file Sexual Orientation Not on file documented as of this encounter Miscellaneous Notes * Cerner Conversion Note - Historical ProviderMD - 01/14/2019 11:36 AM CDT Admission Data, OB Entered On: 01/14/2019 11:39 EDT Performed On: 01/14/2019 11:36 EDT by DOUGLAS COTTO Advance Directive Patient has Advance Directive *Q : No, patient refuses Advance Directive information DOUGLAS COTTO - 01/14/2019 11:36 EDT Height and Weight Height Source : Measured Height Entry Format : [place] Height, Feet : 5 ft(Converted to: 152 cm, 60 Inch) Clinical Height : 172.72 cm Height, Inches : 8 Inch(Converted to: 0 ft 8 Inch, 20.32 cm) Weight Source : Standing scale Weight Entry Format : [place] Weight, Pounds : 283 lb Clinical Dosing Weight : 128.64 kg Body Surface Area (BSA) : 2.37 m2 Body Mass Index : 43.1 kg/m2 (>HHI) [place] Body Weight (IBW) : 63.45 kg DOUGLAS COTTO 01/14/2019 11:36 EDT Health Histories Smoking Status [...] No Tuberculosis Symptoms : None DOUGLAS COTTO 01/14/2019 11:36 EDT Electronically signed by [facility] Conversion Health And Safety Instructor Cerner at 11/12/2022 2:42 PM CDT documented in this encounter Plan of Treatment Not on file documented as of this encounter Visit Diagnoses Not on filedocumented in this encounter
--- OUTSIDE RECORDS SUMMARY | 2025-02-21 11:46 | XMS_ITS | Encounter Summary ---
Author Organization [employer] ([place], [place], [place], [place]) Address [address] [place] [address] Care Team Providers Care Apartment Rental Agent Name Role Phone Unavailable Primary Care Provider Unavailabl e Encounter Details Date Type Department Care Team (Late st Contact Info) Description 03/27/2019 Transcribed Document [facility] [place] [address] [place] [address] ProviderVineet MD [address] [place] [address] Social History Tobacco Use Types [...] these instructions at home: Medicines ??? Take aims-ipr-odddhyn and prescription medicines only as told by [...] 10/05/2010 Document Revised: 08/16/2017 Document Reviewed: 08/16/2017 Gazelle Interactive Patient Education ? 2019 [employer] Inc. Gestational Diabetes Mellitus, Diagnosis Gestational diabetes [...] I need to meet with a certified breastfeeding educator? ? What equipment will I need to care for myself at home? ? What medicines do I need? When should I take them? ? How often do I need to check my blood sugar? ? What number can I call if I have questions? ? When is my next doctor's visit? General instructions ??? Take lqkq-xev-xuzbavq and prescription medicines only as told by [...] 11/01/2016 Document Revised: 03/06/2018 Document Reviewed: 08/13/2016 ElsePirq Interactive Patient Education ? 2019 [employer] documented in this encounter Plan of Treatment Not on file documented as of this encounter Visit Diagnoses Not on filedocumented in this encounter
--- OUTSIDE RECORDS SUMMARY | 2025-02-21 11:46 | XMS_ITS | Encounter Summary ---
Author Organization [employer] ([place], [place], [place], [place]) Address [address] [place] [address] Care Team Providers Care Furnace Mason Name Role Phone Unavailable Primary Care Provider Unavailabl e Encounter Details Date Type Department Care Team (Late st Contact Info) Description 03/13/2019 Transcribed Document [facility] [place] [address] [place] [address] ProviderVineet MD [address] [place] [address] Social History Tobacco Use Types Packs/Day Years Used Date Smoking Tobacco: Never Assessed Comments Unknown Sex and Gender Information Value Date Recorded Sex Assigned at Not on file Legal Sex Female 3:37 PM CDT Gender Identity Not on file Sexual Orientation Not on file documented as of this encounter Miscellaneous Notes * Cerner Conversion Note - Historical ProviderMD - 03/13/2019 1:52 PM CDT Nursing Discharge Summary Entered On: 03/13/2019 13:53 EDT Performed On: 03/13/2019 13:52 EDT by LIZ OG RN Discharge Documentation Patient Disposition, General : [...] LIZ OG RN - 03/13/2019 13:52 EDT Electronically signed by Vladimir [facility] Conversion Supervisor Model Making Cerner at 11/12/2022 2:42 PM CDT documented in this encounter Plan of Treatment Not on file documented as of this encounter Visit Diagnoses Not on filedocumented in this encounter
--- OUTSIDE RECORDS SUMMARY | 2025-02-21 11:46 | XMS_ITS | Encounter Summary ---
Author Organization [employer] ([place], [place], [place], [place]) Address [address] [place] [address] Care Team Providers Care Shake Sawyer Name Role Phone Unavailable Primary Care Provider Unavailabl e Encounter Details Date Type Department Care Team (Late st Contact Info) Description 03/13/2019 Transcribed Document [facility] [place] [address] [place] [address] ProviderVineet MD [address] [place] [address] Social History Tobacco Use Types [...] with twins or multiples. ??? Are of [place]-Beninese, -Uz[place], /, or / descent. What are the [...] be managed by a specialist called an grain elevator operator. This condition is treated by following instructions [...] Follow these instructions at home: ??? Take lgfo-vfb-yqtcgfl and prescription medicines only as told by [...] Do I need to meet with a mortgage closer? Where can I find a support group [...] For more information about diabetes, visit: ? [place] Diabetes Association (ADA): www.diabetes.org ? [place] Association of Diabetes Educators (AADE): www.diabeteseducator.org/patient-resources Contact [...] 10/17/2001 Document Revised: 12/16/2016 Document Reviewed: 08/13/2016 BlueStacks Interactive Patient Education ? 2018 [employer]. Blood Glucose Monitoring, Adult Monitoring your blood [...] Reviewed: 12/20/2016 Elsevier Interactive Patient Education ? 2016 Elsevier Inc. Movement Counts Patient Name: Patient [...]
--- OUTSIDE RECORDS SUMMARY | 2025-02-21 11:46 | XMS_ITS | Encounter Summary ---
Author Organization [employer] ([place], [place], [place], [place]) Address [address] [place] [address] Care Team Providers Care Cattle Shipper Name Role Phone Unavailable Primary Care Provider Unavailabl e Encounter Details Date Type Department Care Team (Late st Contact Info) Description 01/14/2019 Transcribed Document [facility] [place] Family Medicine [address] [place] [address] ProviderVineet MD [address] [place], [place] [id number] Social History Tobacco Use Types Packs/Day Years [...]
--- OUTSIDE RECORDS SUMMARY | 2025-02-21 11:46 | XMS_ITS | Encounter Summary ---
Author Organization [employer] ([place], [place], [place], [place]) Address [address] [place] [address] Care Team Providers Care Journalist Name Role Phone Unavailable Primary Care Provider Unavailabl e Encounter Details Date Type Department Care Team (Late st Contact Info) Description 01/14/2019 Transcribed Document [facility] [place] [address] [place] [address] ProviderVineet MD [address] [place] [address] Social History Tobacco Use Types [...] Historical ProviderMD - 01/14/2019 12:34 PM CDT Nursing [...] 01/14/2019 12:34 EDT Electronically signed by Vladimir [facility] Conversion Dishing Machine Operator Cerner at 11/12/2022 2:39 PM CDT documented in this encounter Plan of Treatment Not on file documented as of this encounter Visit Diagnoses Not on filedocumented in this encounter
--- OUTSIDE RECORDS SUMMARY | 2025-02-21 11:46 | XMS_ITS | Encounter Summary ---
Author Organization [employer] ([place], [place], [place], [place]) Address [address] [place] [address] Care Team Providers Care Instrumental Musician Name Role Phone Unavailable Primary Care Provider Unavailabl e Encounter Details Date Type Department Care Team (Late st Contact Info) Description 01/14/2019 Transcribed Document [facility] [place] [facility] [place] [address] ProviderVineet MD [address] [place] [address] Social History Tobacco Use Types [...] 08/10/2007 Document Revised: 03/09/2017 Document Reviewed: 08/19/2016 WakingApp Interactive Patient Education ? 2019 [employer] Inc. Second Trimester of The second trimester [...] these instructions at home: Medicines ??? Take omve-ons-bwlyeub and prescription medicines only as told by [...] 10/05/2010 Document Revised: 08/16/2017 Document Reviewed: 08/16/2017 WakingApp Interactive Patient Education ? 2019 [employer] documented in this encounter Plan of Treatment Not on file documented as of this encounter Visit Diagnoses Not on filedocumented in this encounter
--- OUTSIDE RECORDS SUMMARY | 2025-02-21 11:47 | XMS_ITS | Encounter Summary ---
Author Organization [employer] ([place], [place], [place], [place]) Address [address] [place] [address] Care Team Providers Care Senior Quality Engineer Name Role Phone Unavailable Primary Care Provider Unavailabl e Encounter Details Date Type Department Care Team (Late st Contact Info) Description 12/21/2018 Transcribed Document [facility] [place] Family Medicine [address] [place] [address] ProviderVineet MD [address] [place] [address] Social History Tobacco Use Types Packs/Day Years [...] Aline Gates RN - 12/21/2018 2:12 EDT Electronically signed by Shereen Gilbert Conversion General Maintenance Engineer Cerner at 11/12/2022 2:46 PM CDT documented in this encounter Plan of Treatment Not on file documented as of this encounter Visit Diagnoses Not on filedocumented in this encounter
--- OUTSIDE RECORDS SUMMARY | 2025-02-21 11:47 | XMS_ITS | Encounter Summary ---
Author Organization [employer] ([place], [place], [place], [place]) Address [address] [place] [address] Care Team Providers Care Spinning Frame Cleaner Name Role Phone Unavailable Primary Care Provider Unavailabl e Encounter Details Date Type Department Care Team (Late st Contact Info) Description 12/21/2018 Transcribed Document [facility] [place] [address] [place] [address] ProviderVineet MD [address] [place] [address] Social History Tobacco Use Types [...] these instructions at home: Medicines ??? Take pwrv-zpw-esrxbfh and prescription medicines only as told by [...] 10/05/2010 Document Revised: 08/16/2017 Document Reviewed: 08/16/2017 Life360 Interactive Patient Education ? 2019 [employer]. and Urinary Tract Infection What is a [...] 11/05/2011 Document Revised: 06/24/2017 Document Reviewed: 05/31/2016 Life360 Interactive Patient Education ? 2019 [employer]360 Inc. documented in this encounter Plan of Treatment Not on file documented as of this encounter Visit Diagnoses Not on filedocumented in this encounter
--- OUTSIDE RECORDS SUMMARY | 2025-02-21 11:47 | XMS_ITS | Encounter Summary ---
Author Organization [employer] ([place], [place], [place], [place]) Address [address] [place] [address] Care Team Providers Care Fabricator Assembler Metal Products Name Role Phone Unavailable Primary Care Provider Unavailabl e Encounter Details Date Type Department Care Team (Late st Contact Info) Description 12/21/2018 Transcribed Document [facility] [place] [address] [place] [address] ProviderVineet MD [address] [place] [address] Social History Tobacco Use Types [...] Fitzgerald MD - 12/21/2018 2:12 AM CDT [place] [phone] PAT MURPHY :1990 Visit Time:12/21/2018 Your Visit Summary Your Care Team Admitting Physician - LAUREN ESCOBAR MD-OBG Attending Physician - LAUREN ESCOBAR MD-OBG Primary Care Physician - KLEBER GREENE (REF)MD-[facility] Referring Physician - LAUREN ESCOBAR MD-OBG [...] Emergency Follow-up Care: Return to the [facility] ([facility]) for any increase [...] patient or her family/partner/friends. Where: [address] [place], [place] [id number] [employer] (1) Medications What How Much When Instructions [...] these instructions at home: Medicines ??? Take ijiw-rmx-ddsgngw and prescription medicines only as told by [...] 10/05/2010 Document Revised: 08/16/2017 Document Reviewed: 08/16/2017 eDeriv Technologies Interactive Patient Education ?? 2019 [employer] Inc[employer] and Urinary Tract Infection What is [...] 11/05/2011 Document Revised: 06/24/2017 Document Reviewed: 05/31/2016 [employer]iv Technologies Interactive Patient Education ?? 2019 [employer]. Emergency Awareness and Preventative Care STROKE is [...] Assistance with quitting is available by contacting 9-136-LQOW-NOW. This is a free resource providing counseling, [...] Be sure to sign up for the [facility] patient portal, which gives you 14/02 access to your medical information ??? including these discharge instructions ??? using your computer, smartphone, or tablet. Just go to Clipmarks to get started. Questions? Call . Test [...] ) Urine Bilirubin Dipstick: Negative Urine Specific [place]: 1.019 -- Normal range between ( 1.005 [...] was given the opportunity to ask questions. Patient/Weed Control Inspector Name: Patient/Weed Control Inspector Signature: Relationship to Patient: Clinician/Hospital Weed Control Inspector Signature: Date: documented in this encounter Plan of Treatment Not on file documented as of this encounter Visit Diagnoses Not on filedocumented in this encounter
== END 2025-02-20 23:59 | disposition home or self-care (01) ==
LOC: LAB.DROPOF 02-21 11:42
PROVIDERS: PCP Student in an Organized Health Care Education/Training Program; Visit Provider Student in an Organized Health Care Education/Training Program
DX: J02.9 Acute pharyngitis, unspecified (principal); R50.9 Fever, unspecified
CPT/HCPCS: 87631